=== PATIENT | male | born 1930 | race Caucasian/White ===

== ENCOUNTER 2018-04-17 07:49 | Inpatient (IN) | payer OTHER ==
--- OUTSIDE RECORDS SUMMARY | 2018-04-17 07:52 | XMS REPORT | Clinical Summary ---
:1930 Author Organization [facility] Address [address] [place] [address] Care Team Providers Name Role Phone Ana Rosa Cooney MD Primary Care Provider Allergies No Known Allergies Current Medications Prescription Sig. Disp. Refills Start Date End Date Status busPIRone (BUSPAR) 10 MG TAKE ONE (1) 04/25/2016 Active tablet TABLET(S) BY MOUTH TWICE A DAY. calcipotriene (DOVONOX) APPLY AND GENTLY 06/15/2016 Active 0.005 % ointment MASSAGE INTO AFFECTED AREA(S) TWICE A DAY. clobetasol (TEMOVATE) 0.05 APPLY SPARINGLY 0 06/11/2016 Active % cream TO AFFECTED AREA(S) TWICE A DAY. hydrochlorothiazide TAKE ONE (1) 04/25/2016 Active (MICROZIDE) 12.5 mg capsule CAPSULE(S) BY MOUTH ONCE A DAY. fluocinonide (LIDEX) 0.05 % APPLY SPARINGLY 2 06/15/2016 Active ointment TO AFFECTED AREA(S) TWICE A DAY. levocetirizine (XYZAL) 5 MG TAKE ONE (1) 05/10/2016 Active tablet TABLET(S) BY MOUTH ONCE A DAY. pantoprazole (PROTONIX) 40 TAKE ONE (1) 06/08/2016 Active MG EC tablet TABLET(S) BY MOUTH ONCE A DAY IN THE MORNING. metoclopramide HCl 5 mg Take 5 mg by 06/08/2016 Active tablet,disintegrating mouth 4 (four) times a day. BYSTOLIC 5 mg tablet TAKE ONE (1) 06/19/2016 Active TABLET(S) BY MOUTH ONCE A DAY. ondansetron ODT TAKE ONE (1) 05/25/2016 Active (ZOFRAN-ODT) 4 MG TABLET(S) BY disintegrating tablet MOUTH THREE TIMES A DAY BEFORE MEALS NEEDED FOR VOMITING. mupirocin (BACTROBAN) 2 % APPLY SPARINGLY 2 06/11/2016 Active ointment TO AFFECTED AREA(S) THREE TIMES A DAY. VESICARE 10 mg tablet TAKE ONE (1) 4 05/10/2016 Active TABLET(S) BY MOUTH ONCE A DAY. triamcinolone (KENALOG) 0.1 APPLY AND GENTLY 0 06/11/2016 Active % ointment MASSAGE INTO AFFECTED AREA(S) TWICE A DAY. melatonin 10 mg capsule Take 3 mg by Active mouth nightly. gabapentin (NEURONTIN) 100 Take 100 mg by Active MG capsule mouth 3 (three) times a day. phenytoin (DILANTIN) 100 Take by mouth. Active mg/4 mL suspension olmesartan (BENICAR) 20 MG Take 20 mg by Active tablet mouth daily. polyethylene glycol Take 17 g by Active (MIRALAX) 17 gram packet mouth daily. bisacodyl (DULCOLAX) 5 mg Take 5 mg by Active EC tablet mouth daily as needed for constipation. Active Problems Problem Noted Date Nausea & vomiting Bowel obstruction Family History Medical History Relation Name Comments Cirrhosis Father Relation Name Status Comments Father Mother Social History Tobacco Use Types Packs/Day Years Used Date Former Smoker Alcohol Use Drinks/Week oz/Week Comments No Sex Assigned at Date Recorded Not on file Last Filed Vital Signs Not on file Plan of Treatment Health Maintenance Due Date Last Done Comments SHINGRIX VACCINE (#1) 1979 ZOSTER VACCINE 1989 PNEUMOCOCCAL POLYSACCHARIDE VACCINE AGE 65 AND OVER 1994 PNEUMOCOCCAL-13 1994 INFLUENZA VACCINE 06/21/2018 Results Not on fileafter 04/16/2017 Insurance Payer Benefit Plan / Group Subscriber ID Type Phone Address FOR LIFE xxxxxxxxx MEDICARE MEDICARE PART A AND B xxxxxxxxxx Medicare [place], [place] AETNA MEDICARE AETNA MEDICARE HMO/PPO [facility] xxxxxxxxx HMO [phone] [place] [id number]
[2018-04-17] MEDS ORDERED: NA CHLORIDE 0.9% 1,000 ML ONE (08:20)
[2018-04-17] MEDS ORDERED: CEFTRIAXONE/SWI 1gm 1 GM/10 ML SYR ONE (08:20)
[2018-04-17 08:50] LABS: Absolute Lymphocytes (CBC) 0.8 K/uL (0.7-4.9); Absolute Monocytes 0.6 K/uL (0.1-1.3); Absolute Neutrophil 12.5 K/uL (1.8-8.0); Basophils % 0.2 % (0-1.3); Hematocrit 37.3 % (39.6-49.0); Lymphocytes % 5.7 % (15.3-44.8); MCH 31.3 pg (27.0-35.0); MCV 91.9 fL (80-100); MPV 8.9 fL (7.6-11.3); Monocytes % 4.2 % (3.3-12.3); RBC Red Blood Cell Count 4.06 M/uL (4.33-5.43)
[2018-04-17 08:51] LABS: Protime INR 1.13
[2018-04-17 09:10] LABS: Albumin 3.8 g/dL (3.2-5.5); Bilirubin Direct 0.2 mg/dL (0-0.2); Bilirubin Total 0.9 mg/dL (0.3-1.2); Protein, Total 6.3 g/dL (6.0-8.3)
--- NOTE | 2018-04-17 09:34 | RAD REPORT ---
EXAM DESCRIPTION: CT - Stone Protocol - 04/17/2018 8:46 am CLINICAL HISTORY: Abdominal pain, vomiting, fever, history of bowel obstruction and colon cancer COMPARISON: CT study October 2017 TECHNIQUE: CT imaging of the abdomen was performed without oral or IV contrast. All CT scans are performed using dose optimization technique as appropriate and may include automated exposure control or mA/KV adjustment according to patient size. FINDINGS: Chronic interstitial lung disease present. Early bronchiectasis changes are present. A few granulomatous calcifications are present. No pneumothorax or pleural effusion. Acute lung base proce ss is unlikely. The consolidation seen October 2017 has resolved. No pericardial thickening or effus ion. The liver, spleen, and pancreas show no suspicious findings for a non IV contrast study. Cholecystec acnelmo clips are present. No biliary tree dilatation. No hydronephrosis or suspicious mass in either kidney. Isodense masses and pyelonephritis are not exc luded. No urinary bladder calculus. Bladder has numerous diverticula. Prostate gland is again noted t o be very large and lobulated. Superior margin projects well into the bladder base. This is similar t o the prior examination. Prostate calcifications are present. There are numerous pelvic floor phlebol iths present. No gastric dilatation or gastric wall thickening. No dilated proximal small bowel. Numerous prominent distal small bowel loops seen no bowel obstruction is not suspected. Patient is status post partial colon resection on the right. No mass or focal abnormality at the anastomotic site. Proximal colon is prominent. Large umbilical hernia is present. The neck of the hernia is the widest point. The hernia contains the proximal portion of the remnant colon as well as a portion of a very tortuous and redun dant sigmoid colon. There is moderate stool volume on the left side. Colon wall thickening or mass no t identifiable. No specific finding for colitis or diverticulitis. Nonspecific gastroenteritis is sti ll possible. No free air, free fluid or inflammatory stranding. No mass or bulky lymphadenopathy. No omental thic kening. Very advanced bony degenerative changes are present but no acute or destructive finding. The patient has very dense vascular calcifications particularly of the splenic artery. Overall exam sensitivity is decreased when no contrast is administered. IMPRESSION: No bowel obstruction, free air or surgically emergent finding. Patient has prominent bowel loops than nonspecific gastroenteritis is certainly possible. Large umbilical hernia containing midline transverse colon and a portion of the very tortuous and red undant sigmoid colon. No acute component. No hydronephrosis or acute finding. Isodense masses and pyelonephritis are not excluded. Prostate gland is quite enlarged and lobulated. This projects into the bladder base. Prostate finding s are not clearly different from comparison.
[2018-04-17] MEDS ORDERED: Levofloxacin500mg IV 500 MG/100 ML BAG IV ONE (09:39)
--- NOTE | 2018-04-17 09:54 | RAD REPORT ---
EXAM DESCRIPTION: RAD - Chest Single View - 04/17/2018 8:54 am CLINICAL HISTORY: Vomiting, fever, colon cancer COMPARISON: October 2017 TECHNIQUE: AP portable chest image was obtained 0842 hours . FINDINGS: Lungs are underinflated. Consolidation is present in the lateral right lung field. Chronic lung disease or atelectasis at each base. No acute left lung field finding. No failure or volume ove rload. Heart and vasculature are normal. No pneumothorax or large pleural effusion. No gross bony abn ormality seen. No acute aortic findings suspected. IMPRESSION: Moderate right upper lobe pneumonia.
--- NOTE | 2018-04-17 10:02 | ER ---
Nurse's Notes [facility] Name: Marcial Groves Age: 87 yrs Sex: Male : 1930 Arrival Date: 04/17/2018 Time: 07:52 Bed 20 Private MD: Diagnosis: Sepsis due to other Gram-negative organisms;Other intestinal obstruction;Lobar pneumonia, unspecified organism Presentation: 04/17 07:57 Presenting complaint: Child states: " He has been throwing up and running a fever since ph last night." Reports N/V and fever TMAX "over 100 and he usually runs 97.0" Pt denies diarrhea or abdominal pain, hx of bowel blockage. Transition of care: patient was not received from another setting of care. Onset of symptoms was April 17, 2018. Risk Assessment: Do you want to hurt yourself or someone else? Patient reports no desire to harm self or others. Initial Sepsis Screen: Does the patient meet any 2 criteria? No. Patient's initial sepsis screen is negative. Does the patient have a suspected source of infection? No. Patient's initial sepsis screen is negative. Care prior to arrival: None. 07:57 Method Of Arrival: Wheelchair 07:57 Acuity: JER 3 ph Historical: - Allergies: 08:01 NKDA; ph - Home Meds: 08:58 Align 4 mg Oral cap daily [Active]; Charito Oral daily [Active]; Anuja 0.5-0.4 mg Oral hb CM24 1 cap once daily for Symptomatic Benign Prostatic Hyperplasia [Active]; melatonin 5 mg oral cap nightly [Active]; quetiapine 25 mg Oral tab 1 tab 3 times per day [Active]; buspirone 10 mg Oral tab 1 tab 3 times per day [Active]; Lamictal 100 mg Oral tab 1 tab 2 times per day [Active]; Dilantin 100 mg cap Oral 1 cap four times a day [Active]; amlodipine 5 mg oral tab [Active]; Benicar 20 mg Oral tab 1 tab nightly for Hypertension [Active]; Bystolic 5 mg Oral tab 1 tab once daily for Hypertension [Active]; hydralazine 75 mg Oral tab 4 times per day [Active]; hydrochlorothiazide 12.5 mg Oral cap 1 cap once daily [Active]; Maria Teresa Aspirin 325 mg Oral tab 1 tab once daily [Active]; levocetirizine 5 mg Oral tab 1 tab once daily [Active]; carbidopa-levodopa 25-100 mg Oral tab 3 times per day for Parkinsonism [Active]; Flomax 0.4 mg Oral cp24 1 cap once daily for Symptomatic Benign Prostatic Hyperplasia [Active]; Vesicare 10 mg Oral tab 1 tab once daily [Active]; Flonase Nasal daily [Active]; metoclopramide HCl 5 mg Oral tab 1 tab twice a day [Active]; pantoprazole 40 mg Oral TbEC 1 tab once daily [Active]; 09:02 B-12 DOTS 500 mcg Oral tab 2 tab daily [Active]; Miralax 17 gram/dose Oral powd once hb daily [Active]; vitamin B complex oral tab [Active]; Probiotic oral oral [Active]; memantine 28 mg oral tab once daily [Active]; trazodone 50 mg Oral tab nightly [Active]; ondansetron HCl 4 mg Oral tab as needed [Active]; - PMHx: 08:01 10 BOWEL OBSTRUCTIONS ; "THEY DIDN'T HAVE TO OPERATE ON ANY OF THEM"; CVA; colon ph cancer; Dementia; Hypertension; Atrial Fib; bowel incontinence; Kidney stones; Pancreatitis; Parkinsons; prostatic hyperplasia; psoriasis; pulmonary fibrosis; UTI; VASCULAR DEMENTIA; - PSHx: 08:01 Partial colon removal; Cholecystectomy; Hernia repair; Rotator cuff repair; ph - Immunization history:: Adult Immunizations unknown. - Social history:: Smoking status: Patient/guardian denies using tobacco. - Ebola Screening: : No symptoms or risks identified at this time. Screenin:40 Abuse screen: Denies threats or abuse. Denies injuries from another. hb 08:40 Nutritional screening: No deficits noted. Tuberculosis screening: No symptoms or risk hb factors identified. Fall Risk Total River Fall Scale indicates High Risk Score (45 or more points). Fall prevention measures have been instituted. Side Rails Up X 2 Placed Close to Nursing Station Frequent Obs/Assessments Occuring Family Present and informed to notify staff if the need to leave the bedside As available patient and family educated on Fall Prevention Program and Strategies. Assessment: 08:15 General: Appears in no apparent distress. Behavior is calm, cooperative. Pain: Denies hb pain. Neuro: Level of Consciousness is awake, alert, obeys commands, Oriented to person, place, situation. Cardiovascular: Heart tones S1 S2 present Capillary refill < 3 seconds Patient's skin is warm and dry. Respiratory: Airway is patent Trachea midline Respiratory effort is even, unlabored, Respiratory pattern is regular, symmetrical, Breath sounds are clear bilaterally. GI: Abdomen is non-distended, Bowel sounds present X 4 quads. Reports nausea, vomiting. : No signs and/or symptoms were reported regarding the genitourinary system. EENT: No signs and/or symptoms were reported regarding the EENT system. Derm: No signs and/or symptoms reported regarding the dermatologic system. Skin is intact, is thin, with poor turgor Skin is pink, warm \\T\\ dry. Musculoskeletal: No signs and/or symptoms reported regarding the musculoskeletal system. 09:00 Reassessment: Patient appears in no apparent distress at this time. No changes from hb previously documented assessment. Patient and/or family updated on plan of care and expected duration. Pain level reassessed. Patient is alert, oriented x 3, equal unlabored respirations, skin warm/dry/pink. 10:00 Reassessment: Patient appears in no apparent distress at this time. No changes from hb previously documented assessment. Patient and/or family updated on plan of care and expected duration. Pain level reassessed. Patient is alert, oriented x 3, equal unlabored respirations, skin warm/dry/pink. 10:56 Reassessment: Patient appears in no apparent distress at this time. No changes from hb previously documented assessment. Patient and/or family updated on plan of care and expected duration. Pain level reassessed. Patient is alert, oriented x 3, equal unlabored respirations, skin warm/dry/pink. 11:45 Reassessment: Patient appears in no apparent distress at this time. No changes from hb previously documented assessment. Patient and/or family updated on plan of care and expected duration. Pain level reassessed. Patient is alert, oriented x 3, equal unlabored respirations, skin warm/dry/pink. 12:45 Reassessment: Patient appears in no apparent distress at this time. No changes from hb previously documented assessment. Patient and/or family updated on plan of care and expected duration. Pain level reassessed. Patient is alert, oriented x 3, equal unlabored respirations, skin warm/dry/pink. Vital Signs: 07:59 BP 116 / 50; Pulse 75; Resp 18; Temp 99.4; Pulse Ox 97% on R/A; Weight 63.05 kg; ph 08:30 BP 138 / 52; Pulse 77; Resp 22; Pulse Ox 95% on R/A; Pain 0/10; hb 09:30 BP 142 / 46; Pulse 74; Resp 20; Pulse Ox 96% on R/A; Pain 0/10; hb 10:15 BP 146 / 60; Pulse 72; Resp 22; Pulse Ox 97% on R/A; hb 10:57 BP 145 / 50; Pulse 81; Resp 23; Temp 99; Pulse Ox 96% on R/A; hb 11:45 BP 148 / 48; Pulse 84; Resp 26; Pulse Ox 86% on R/A; hb 11:55 Pulse Ox 94% on 3 lpm NC; hb 12:45 BP 154 / 51; Pulse 88; Resp 24; Pulse Ox 94% on 3 lpm NC; hb ED Course: 07:52 Patient arrived in ED. ds1 07:59 Triage completed. ph 08:01 Arm band placed on. ph 08:02 Genesis Medel, JEFF is Primary Nurse. hb 08:05 Geovanny Srivastava MD is Attending Physician. gs 08:15 Patient has correct armband on for positive identification. Placed in gown. Bed in low hb position. Call light in reach. Side rails up X2. Adult w/ patient. industrial gas servicer on. Pulse ox on. NIBP on. 08:[address] via stretcher. eh 08:26 Missed attempt(s): 24 gauge in left wrist. x2. Bleeding controlled, band aid applied, hb catheter tip intact. 08:30 EKG done, by ED staff, reviewed by Geovanny Srivastava MD. mh5 08:30 Inserted saline lock: 24 gauge in left wrist, using aseptic technique. Blood collected. hb 08:44 CT completed. Patient tolerated procedure well. Patient moved to radiology. vm2 08:46 CT Stone Protocol In Process Unspecified. EDMS 08:51 X-ray completed. Patient tolerated procedure well. jw2 08:52 Chest Single View XRAY In Process Unspecified. EDMS 10:00 Nisha Delaney MD is Hospitalizing Provider. gs 14:45 No provider procedures requiring assistance completed. Patient admitted, IV remains in hb place. Administered Medications: 08:48 Drug: NS 0.9% 1000 ml Route: IV; Rate: 1 bolus; Site: left wrist; hb 10:00 Follow up: Response: No adverse reaction; IV Status: Completed infusion hb 08:48 Drug: Rocephin 1 grams Route: IV; Rate: calculated rate; Site: left wrist; hb 09:30 Follow up: Response: No adverse reaction; IV Status: Completed infusion hb 09:50 Drug: LevaQUIN 500 mg Volume: 100 ml; Route: IVPB; Infused Over: 60 mins; Site: right hb antecubital; 10:56 Follow up: Response: No adverse reaction; IV Status: Completed infusion hb 10:53 Drug: Clindamycin 600 mg Route: IVPB; Infused Over: 30 mins; Site: left wrist; hb 11:20 Follow up: Response: No adverse reaction; IV Status: Completed infusion hb 10:55 Drug: NS 0.9% 1000 ml Route: IV; Rate: 1 bolus; Site: left wrist; hb Outcome: 10:01 Decision to Hospitalize by Provider. gs 14:45 Admitted to Med/surg accompanied by tech, room 205, with chart. hb 14:45 Condition: stable 14:45 Instructed on the need for admit, Demonstrated understanding of instructions. 14:54 Patient left the ED. jb1 Signatures: Dispatcher [employer] EDMS Yassine Moran jb1 Peter Ash Demi ds1 Helen Perez, JEFF RN Laura Lewis jw2 Genesis Medel RN RN hb Martinez, Maria Nidia Perkins 2 Geovanny Srivastava MD MD gs
--- NOTE | 2018-04-17 10:02 | EDPHYS ---
Physician Documentation [facility] Name: Marcial Groves Age: 87 yrs Sex: Male : 1930 Arrival Date: 04/17/2018 Time: 07:52 Bed 20 Private MD: ED Physician Geovanny Srivastava HPI: 04/17 10:20 This 87 yrs old Male presents to ER via Wheelchair with complaints of gs Vomiting. 10:20 Onset: The symptoms/episode began/occurred acutely. Possible causes: flare up of bowel gs problem. The symptoms are aggravated by nothing. The symptoms are alleviated by nothing. Associated signs and symptoms: Pertinent positives: abdominal pain, fever. Severity of symptoms: At their worst the symptoms were severe in the emergency department the symptoms are unchanged. The patient has experienced similar episodes in the past, a few times. Historical: - Allergies: 08:01 NKDA; ph - Home Meds: 08:58 Align 4 mg Oral cap daily [Active]; Charito Oral daily [Active]; Anuja 0.5-0.4 mg Oral hb CM24 1 cap once daily for Symptomatic Benign Prostatic Hyperplasia [Active]; melatonin 5 mg oral cap nightly [Active]; quetiapine 25 mg Oral tab 1 tab 3 times per day [Active]; buspirone 10 mg Oral tab 1 tab 3 times per day [Active]; Lamictal 100 mg Oral tab 1 tab 2 times per day [Active]; Dilantin 100 mg cap Oral 1 cap four times a day [Active]; amlodipine 5 mg oral tab [Active]; Benicar 20 mg Oral tab 1 tab nightly for Hypertension [Active]; Bystolic 5 mg Oral tab 1 tab once daily for Hypertension [Active]; hydralazine 75 mg Oral tab 4 times per day [Active]; hydrochlorothiazide 12.5 mg Oral cap 1 cap once daily [Active]; Maria Teresa Aspirin 325 mg Oral tab 1 tab once daily [Active]; levocetirizine 5 mg Oral tab 1 tab once daily [Active]; carbidopa-levodopa 25-100 mg Oral tab 3 times per day for Parkinsonism [Active]; Flomax 0.4 mg Oral cp24 1 cap once daily for Symptomatic Benign Prostatic Hyperplasia [Active]; Vesicare 10 mg Oral tab 1 tab once daily [Active]; Flonase Nasal daily [Active]; metoclopramide HCl 5 mg Oral tab 1 tab twice a day [Active]; pantoprazole 40 mg Oral TbEC 1 tab once daily [Active]; 09:02 B-12 DOTS 500 mcg Oral tab 2 tab daily [Active]; Miralax 17 gram/dose Oral powd once hb daily [Active]; vitamin B complex oral tab [Active]; Probiotic oral oral [Active]; memantine 28 mg oral tab once daily [Active]; trazodone 50 mg Oral tab nightly [Active]; ondansetron HCl 4 mg Oral tab as needed [Active]; - PMHx: 08:01 10 BOWEL OBSTRUCTIONS ; "THEY DIDN'T HAVE TO OPERATE ON ANY OF THEM"; CVA; colon ph cancer; Dementia; Hypertension; Atrial Fib; bowel incontinence; Kidney stones; Pancreatitis; Parkinsons; prostatic hyperplasia; psoriasis; pulmonary fibrosis; UTI; VASCULAR DEMENTIA; - PSHx: 08:01 Partial colon removal; Cholecystectomy; Hernia repair; Rotator cuff repair; ph - Immunization history:: Adult Immunizations unknown. - Social history:: Smoking status: Patient/guardian denies using tobacco. - Ebola Screening: : No symptoms or risks identified at this time. ROS: 10:20 All other systems are negative. gs Exam: 10:20 Head/Face: Normocephalic, atraumatic. Eyes: Pupils equal round and reactive to light, gs extra-ocular motions intact. Lids and lashes normal. Conjunctiva and sclera are non-icteric and not injected. Cornea within normal limits. Periorbital areas with no swelling, redness, or edema. ENT: Nares patent. No nasal discharge, no septal abnormalities noted. Tympanic membranes are normal and external auditory canals are clear. Oropharynx with no redness, swelling, or masses, exudates, or evidence of obstruction, uvula midline. Mucous membranes moist. Neck: Trachea midline, no thyromegaly or masses palpated, and no cervical lymphadenopathy. Supple, full range of motion without nuchal rigidity, or vertebral point tenderness. No Meningismus. Chest/axilla: Normal chest wall appearance and motion. Nontender with no deformity. No lesions are appreciated. Cardiovascular: Regular rate and rhythm with a normal S1 and S2. No gallops, murmurs, or rubs. Normal PMI, no JVD. No pulse deficits. 10:20 Constitutional: The patient appears alert, awake. 10:20 ECG was reviewed by the Attending Physician. Vital Signs: 07:59 BP 116 / 50; Pulse 75; Resp 18; Temp 99.4; Pulse Ox 97% on R/A; Weight 63.05 kg; ph 08:30 BP 138 / 52; Pulse 77; Resp 22; Pulse Ox 95% on R/A; Pain 0/10; hb 09:30 BP 142 / 46; Pulse 74; Resp 20; Pulse Ox 96% on R/A; Pain 0/10; hb 10:15 BP 146 / 60; Pulse 72; Resp 22; Pulse Ox 97% on R/A; hb 10:57 BP 145 / 50; Pulse 81; Resp 23; Temp 99; Pulse Ox 96% on R/A; hb 11:45 BP 148 / 48; Pulse 84; Resp 26; Pulse Ox 86% on R/A; hb 11:55 Pulse Ox 94% on 3 lpm NC; hb 12:45 BP 154 / 51; Pulse 88; Resp 24; Pulse Ox 94% on 3 lpm NC; hb MDM: 08:13 Patient medically screened. 10:20 Differential diagnosis: Nonspecific abd pain, pancreatitis, diverticulitis, viral gs gastroenteritis, sepsis. Data reviewed: vital signs, nurses notes. Response to treatment: the patient's symptoms have mildly improved after treatment, and as a result, I will admit patient. 04/17 08:13 Order name: Basic Metabolic Panel; Complete Time: 09:30 04/17 08:13 Order name: Blood Culture Adult (2) 04/17 08:13 Order name: BNP; Complete Time: 09:30 04/17 08:13 Order name: CBC with Diff 04/17 08:13 Order name: CPK; Complete Time: 09:30 04/17 08:13 Order name: Lactate; Complete Time: 09:30 04/17 08:13 Order name: LFT's; Complete Time: 09:30 04/17 08:13 Order name: Lipase; Complete Time: 09:30 04/17 08:13 Order name: Procalcitonin 04/17 08:13 Order name: Protime (+inr); Complete Time: 09:30 04/17 08:13 Order name: Sed Rate 04/17 08:13 Order name: Troponin (emerg Dept Use Only); Complete Time: 09:30 04/17 08:53 Order name: CBC Smear Scan [facility] 04/17 10:03 Order name: Urine Dipstick--Ancillary (enter results) 04/17 08:13 Order name: Chest Single View XRAY; Complete Time: 10:01 04/17 08:13 Order name: CT Stone Protocol; Complete Time: 10:01 04/17 10:13 Order name: Basic Metabolic Panel [facility] 04/17 10:13 Order name: Basic Metabolic Panel [facility] 04/17 10:13 Order name: Basic Metabolic Panel [facility] 04/17 10:13 Order name: Basic Metabolic Panel [facility] 04/17 10:13 Order name: CBC with Automated Diff [facility] 04/17 10:13 Order name: CBC with Automated Diff [facility] 04/17 10:13 Order name: CBC with Automated Diff [facility] 04/17 10:13 Order name: CBC with Automated Diff [facility] 04/17 10:13 Order name: Sputum Culture [facility] 04/17 13:24 Order name: Lactate Sepsis 2 HR Follow-up [facility] 04/17 13:29 Order name: Magnesium [facility] 04/17 08:13 Order name: Accucheck; Complete Time: 08:48 04/17 08:13 Order name: Cardiac monitoring; Complete Time: 08:49 04/17 08:13 Order name: EKG - Nurse/Tech; Complete Time: 08:31 04/17 08:13 Order name: IV Saline Lock - Large Bore; Complete Time: 08:49 04/17 08:13 Order name: Labs collected and sent; Complete Time: 08:49 04/17 08:13 Order name: O2 Per Protocol; Complete Time: 08:49 04/17 08:13 Order name: O2 Sat Monitoring; Complete Time: 08:49 04/17 08:13 Order name: Urine Dipstick-Ancillary (obtain specimen); Complete Time: 09:51 04/17 08:55 Order name: EKG Electrocardiogram [facility] 04/17 10:13 Order name: CONS Physician Consult [facility] 04/17 10:13 Order name: Physical Therapy Consult [facility] 04/17 10:13 Order name: NPO EDOK EC:20 Rate is 76 beats/min. Rhythm is regular. QRS interval is prolonged. T waves are Normal. gs No ST changes noted. Clinical impression: Abnormal EKG without significant change. Interpreted by me. Administered Medications: 08:48 Drug: NS 0.9% 1000 ml Route: IV; Rate: 1 bolus; Site: left wrist; hb 10:00 Follow up: Response: No adverse reaction; IV Status: Completed infusion hb 08:48 Drug: Rocephin 1 grams Route: IV; Rate: calculated rate; Site: left wrist; hb 09:30 Follow up: Response: No adverse reaction; IV Status: Completed infusion hb 09:50 Drug: LevaQUIN 500 mg Volume: 100 ml; Route: IVPB; Infused Over: 60 mins; Site: right hb antecubital; 10:56 Follow up: Response: No adverse reaction; IV Status: Completed infusion hb 10:53 Drug: Clindamycin 600 mg Route: IVPB; Infused Over: 30 mins; Site: left wrist; hb 11:20 Follow up: Response: No adverse reaction; IV Status: Completed infusion hb 10:55 Drug: NS 0.9% 1000 ml Route: IV; Rate: 1 bolus; Site: left wrist; hb Disposition: 04/17/18 10:01 Hospitalization ordered by Nisha Delaney for Inpatient Admission. Preliminary diagnosis are Sepsis due to other Gram-negative organisms, Other intestinal obstruction, Lobar pneumonia, unspecified organism. - Bed requested for Telemetry/MedSurg (Inpatient). - Status is Inpatient Admission. jb1 - Condition is Stable. - Problem is new. - Symptoms have improved. UTI on Admission? No Critical care time excluding procedures: 10:20 Critical care time: Bedside Care: 10 minutes, Consultation: 10 minutes, Family gs Intervention: 10 minutes. Total time: 30 minutes Signatures: Dispatcher [employer] EDOK MoranYassine jb1 Keri Robledo Patricia, RN RN Genesis Medel RN RN Geovanny Srivastava MD MD Corrections: (The following items were deleted from the chart) 13:33 10:01 Hospitalization Ordered by Nisha Delaney MD for Inpatient Admission. Preliminary bd diagnosis is Sepsis due to other Gram-negative organisms; Other intestinal obstruction; Lobar pneumonia, unspecified organism. Bed requested for Telemetry/MedSurg (Inpatient). Status is Inpatient Admission. Condition is Stable. Problem is new. Symptoms have improved. UTI on Admission? No. gs 14:54 13:33 04/17/2018 10:01 Hospitalization Ordered by Nisha Delaney MD for Inpatient jb1 Admission. Preliminary diagnosis is Sepsis due to other Gram-negative organisms; Other intestinal obstruction; Lobar pneumonia, unspecified organism. Bed requested for Telemetry/MedSurg (Inpatient). Status is Inpatient Admission. Condition is Stable. Problem is new. Symptoms have improved. UTI on Admission? No. bd
[2018-04-17] MEDS ORDERED: IPRATROPIUM BROM 0.5MG/2.5ML NEB PRN (10:09)
[2018-04-17] MEDS ORDERED: ALBUTEROL 2.5 MG/3 ML NEB SOL NEB PRN (10:09)
[2018-04-17] MEDS ORDERED: ONDANSETRON 4 MG/2 ML VIAL IV PRN (10:09)
[2018-04-17] MEDS ORDERED: ACETAMINOPHEN 650MG/RECT SUPP PR PRN (10:09)
[2018-04-17] MEDS ORDERED: CLINDAMYCIN 600MG/D5W 600 MG/50 ML BAG IV ONE (10:50)
[2018-04-17 11:18] LABS: Urine Blood NEGATIVE (NEG); Urine Glucose NEGATIVE (NEG); Urine Protein NEGATIVE (NEG); Urine Specific Gravity 1.015 (1.005-1.030)
[2018-04-17 12:01] LABS: Blood Morphology Comment NOT SEEN (NOT SEEN); Platelet Estimate ADEQ; Urine White Blood Cell Casts OK
--- NOTE | 2018-04-17 12:43 | EKG ---
Test Date: 2018-04-17 Test Time: 08:25:40 Gullet Slitter: LISA MEASUREMENT RESULTS: Intervals: Rate: 76 [place]: 192 QRSD: 114 QT: 408 QTc: 459 [place]: P: [place]: 192 QRS: 11 T: 45 INTERPRETIVE STATEMENTS: Sinus rhythm with premature atrial complexes Otherwise normal ECG Compared to ECG 11/19/2017 05:30:47 Atrial premature complex(es) now present Atrial fibrillation no longer present Ventricular premature complex(es) no longer present Intraventricular conduction delay no longer present ST (T wave) deviation no longer present Electronically Signed On 04-17-18 12:42:31 CDT by Vicente Guzman
--- NOTE | 2018-04-17 14:11 | CON ---
Date of Consultation: 04/17/2018 Brief History Of Present Illness: The patient is an 87-year-old male known to me from previous admis sions, who presents with complaints of throwing up and fever since yesterday. He had nausea, vomitin g and fever of approximately 100 and that is unusual for him. He states that he has some mild abdomi nal pain as well. Past Medical History: Significant for hypertension, bradycardia, colon cancer, neuropathy, CVA, vasc ular dementia, osteoarthritis and possible Parkinson's disease. He has had multiple bowel obstructio ns in the past on 05/16/2016, 09/23/2016 and 11/21/2016. He did not require any surgical interventio n at that time. He was recommended on a low residue diet, which has been effective for minimizing th e incidence of his bowel obstructions. He does not appear to have obstructive symptoms at this time by his family's description. His last BM was yesterday, which was apparently normal. Past Surgical History: He had a partial colectomy for colon cancer, cholecystectomy, tonsillectomy, hernia repair, small bowel resection and rotator cuff surgery. Social History: He lives with his son and caregiver. Negative for smoking, alcohol or recreational drug use. Allergies: NO KNOWN DRUG ALLERGIES. Medications: At home include: 1.Align. 2.Charito. 3.Melatonin. 4.Seroquel. 5.BuSpar. 6.Lamictal. 7.Dilantin. 8.Amlodipine. 9.Benicar. 10.Bystolic. 11.Hydralazine. 12.Hydrochlorothiazide. 13.Maria Teresa aspirin. 14.Levocetirizine. 15.Carbidopa. 16.Levodopa. 17.Flomax. 18.VESIcare. 19.Flonase. 20.Reglan. 21.Protonix. 22.B12. 23.MiraLax. 24.Vitamin B. 25.Probiotic. 26.Memantine. 27.Trazodone. 28.Zofran. Review of Systems: A 10-point review of systems other than HPI, denies although the patient is a poor historian. Physical Examination: General: He is awake and alert, but confused. He is pleasantly demented. He is answering questions appropriately and has no apparent distress. He was smiling and conversant throughout the interview. HEENT: Normocephalic. His sclerae are anicteric. His mucous membranes are moist. His oropharynx i s clear. Neck: Supple. No JVD. Chest: Normal expansion and excursion. Abdomen: Soft with obvious midline hernia. Easily reducible. It is nontender. There is minimal te nderness to deep palpation in bilateral lateral lower quadrants. No rebound. No guarding. No focal peritonitis. Bowel sounds are good. Extremities: No clubbing, cyanosis or edema. Skin: Warm and dry. Laboratory Data: He had a hemoglobin of 12.7, hematocrit 37.3, white count was 13.9 and platelets ar e 144. Neutrophils are 89.9, PT 13.3 and INR 1.13. Sodium 129, potassium 4.0, chloride 94, carbon d ioxide 26, BUN 17, creatinine 1.0, glucose is 156, lactic acid 31.1, total bilirubin 0.9, AST is 41, ALT 27 and alkaline phosphatase is 100. BNP is 252. Lipase is 16. He had a CT scan performed of abdomen and pelvis. The official dictation states no bowel obstruction, free air or surgically felix rgent finding. The patient had prominent bowel loops. There is nonspecific gastroenteritis with cer tainly possible large umbilical hernia containing midline transverse colon and a portion of the very tortuous and redundant sigmoid colon. No acute component. No hydronephrosis or findings. Isoden se mass and pyelonephritis are not excluded. Prostate gland is quite enlarged and lobulated. There is projection to bladder base. Prostate findings are not clearly different from comparison. Assessment And Plan: This is an 87-year-old man, who presents with possible enteritis-type picture/i leus. I suspect that this is likely due to his electrolyte abnormalities. He has had a pattern of e lectrolyte abnormalities contributing to an ileus-type picture. When corrected, his bowel function r esumed and his symptoms completely resolved. As such, I recommend admission, IV fluids, electrolyte correction, serial abdominal exams, medical management for his medical issues and possible aspiration . No surgical intervention is warranted at this time, however, we will follow along with you. JUAN PABLO/MARILYN Voice ID: [id number] Report ID: [id number]
[2018-04-17 14:46] VITALS: BMI 21.4
--- NOTE | 2018-04-17 14:55 | HP ---
Date of Admission: 04/17/2018 Primary Care Physician: Dr. Ana Rosa Cooney. Consultants: Dr. Paulino, General Surgery. Chief Complaint: Cough, fever, nausea. Code Status: DNR. The patient does have medical power of finance attorney and living will. History Of Present Illness: The patient is an 87-year-old male with past medical history of Parkinso n disease, history of CVA, history of colon cancer, neuropathy, osteoarthritis, atrial fibrillation, history of bowel resection with multiple obstructions, who lives in an assisted living facility, who comes in with a fever, nausea, no vomiting along with some shortness of breath. The patient has had some cough with some scant sputum production. No ill contacts. Symptoms are constant, moderate, pro gressively worsening. The patient denies any overt choking episodes, however, is on thickened liquid s and has had episodes of choking in the past. The patient's workup revealed an elevated white count of 13,000 with left shift. Electrolytes showed low sodium of 129, elevated lactic acid. The patien t was found to be septic, given IV antibiotics. Blood cultures were obtained. Chest x-ray showed ri ght upper lobe pneumonia. CT abdomen showed possible ileus. The patient was then referred for admis loan. When seen in the ER, the patient was awake, alert, oriented x2, in some mild distress. Past Medical History: History of CVA, hypertension, history of colon cancer with bowel obstructions, neuropathy, vascular dementia, acute instability, multiple falls, osteoarthritis, A-Fib. Past Surgical History: Bowel resection, cholecystectomy, tonsillectomy, hernia repair, rotator cuff repair. Allergies: NO KNOWN DRUG ALLERGIES. Medications: List reviewed. Social History: The patient lives in assisted living facility. Has good social support. Does requi re assistive ambulatory devices. Is a former smoker. No alcohol use or illicit drug use. Family History: Mother had Alzheimer's. Review of Systems: An 11-point review of systems negative except as per HPI. Physical Examination: Vital Signs: Temperature 99.4, heart rate 75, respirations 18, blood pressure 116/50, O2 97% on room air. General: Awake, alert, oriented x3, in some mild distress. Elderly male, ill-appearing. HEENT: Normocephalic, atraumatic. PERRLA. EOMI. Moist mucous membranes. Oropharynx is clear. Po or dentition. Conjunctiva anicteric. Neck: Supple. No JVD. Trachea midline. CV: S1, S2. Peripheral pulses present. No murmurs. Respiratory: Diminished breath sounds on the right. Moving air well on the left. No wheezing. No stridor. No use of accessory muscles. Gastrointestinal: Abdomen is soft. Mild tenderness to palpation. No rebound or guarding. No rigid ity. Mildly distended. Reducible ventral hernia is present. Extremities: No clubbing, cyanosis, or edema. Neuro: Cranial nerves 2 through 12 intact grossly. No focal neurological deficit. Speech is normal . Laboratory Data: Sodium 129, potassium 4, chloride 94, CO2 26, BUN 17, creatinine 1, glucose 156, la ctic acid 31.1, calcium 8.8. Troponin less than 0.03. BNP 252, lipase 16. Procalcitonin pending. INR 1.13. WBC 13.9, H and H 12.7, 37.3, platelets 144, neutrophils 89.9%. UA pending. Chest x-ray shows moderate right upper lobe pneumonia. CT scan of abdomen shows no bowel obstruction, free air o r surgically emergent finding. The patient has prominent bowel loops, nonspecific gastritis. Certai nly possible large umbilical hernia containing midline transverse colon, portion of a very tortuous a nd redundant sigmoid colon. No acute component. No hydronephrosis or acute finding. Isodense ma sses and pyelonephritis not excluded. Prostate gland quite enlarged lobulated, projects into the chantel dder base, not different from comparison. Assessment: An 87-year-old male with; 1.Sepsis secondary to pneumonia, right upper lobe. Continue with IV antibiotics. Follow up with bl ood cultures. Obtain sputum cultures. 2.Ileus. We will keep n.p.o. No small bowel obstruction. Appreciate Dr. Paulino's input. We will monitor electrolytes. Check magnesium level. 3.Hyponatremia. We will monitor sodium level. Continue with IV fluids, fluid restriction. 4.History of cerebrovascular accident. 5.Essential hypertension. 6.History of colon cancer with multiple bowel obstructions. 7.Neuropathy. 8.Vascular dementia. 9.Osteoarthritis. 10.History of paroxysmal atrial fibrillation. 11.Benign prostatic hyperplasia. 12.Gastrointestinal and deep venous thrombosis prophylaxis addressed. Plan: Continue with sepsis protocol, IV antibiotics and fluids. Follow up on cultures. /MARILYN Voice ID: [id number]
[2018-04-17] MEDS: NA CHLORIDE 0.9% 1,000 ML IV SCH ×2 (15:42→21:00)
[2018-04-17] MEDS: ENOXAPARIN 40 MG/0.4 ML SQ SCH (16:35)
[2018-04-17] MEDS: ENSURE ENLIVE 237 ML CAN PO SCH ×2 (17:00→21:00)
[2018-04-17] MEDS: PHENYTOIN ER 100 MG CAP PO SCH ×3 (17:00→22:11)
[2018-04-17] MEDS: METOCLOPRAMIDE 5 MG TAB PO SCH ×2 (21:00→22:11)
[2018-04-17] MEDS ORDERED: CARBIDOPA PO SCH (21:00)
[2018-04-17] MEDS: lamoTRIgine 100 MG TAB PO SCH ×2 (21:00→22:11)
[2018-04-17] MEDS ORDERED: LEVODOPA PO SCH (21:00)
[2018-04-17] MEDS ORDERED: HOME MED 1 EA UNK (Buspirone Hcl [Buspar] 10 MG) PO SCH (21:00)
[2018-04-18 05:13] LABS: Absolute Lymphocytes (CBC) 0.6 K/uL (0.7-4.9); Absolute Monocytes 0.6 K/uL (0.1-1.3); Absolute Neutrophil 8.1 K/uL (1.8-8.0); Basophils % 0.3 % (0-1.3); Eosinophils % 0.3 % (0-4.4); Lymphocytes % 6.2 % (15.3-44.8); MCH 31.8 pg (27.0-35.0); MCV 91.6 fL (80-100); MPV 8.5 fL (7.6-11.3); Monocytes % 6.4 % (3.3-12.3); RBC Red Blood Cell Count 4.15 M/uL (4.33-5.43)
[2018-04-18 05:56] LABS: Magnesium 1.8 mg/dL (1.8-2.5); Potassium 3.8 mEq/L (3.6-5.0)
[2018-04-18] MEDS ORDERED: MAGNESIUM SULFATE 1 gm IVPB 1 GM/100 ML BAG IV ONE (06:19)
[2018-04-18] MEDS: NA CHLORIDE 0.9% 1,000 ML IV SCH ×2 (06:36→18:02)
[2018-04-18] MEDS ORDERED: KCL 20 MEQ/100 mL IVPB 20 MEQ/100 ML BAG IV SCH (07:00)
[2018-04-18] MEDS ORDERED: POLYETHYL GLY 3350 17 GM/DOSE PO PRN (09:00)
[2018-04-18] MEDS ORDERED: FEXOFENADINE 180 MG TAB PO SCH (09:00)
[2018-04-18] MEDS: ENSURE ENLIVE 237 ML CAN PO SCH ×4 (09:00→20:58)
[2018-04-18] MEDS ORDERED: HOME MED 1 EA UNK (Levocetirizine Dihydrochloride [Xyzal] 5 MG) PO SCH (09:00)
[2018-04-18] MEDS: PANTOPRAZOLE 40MG TABLET PO SCH (10:39)
[2018-04-18] MEDS: Levofloxacin 750mg IV 750 MG/150 ML BAG IV SCH (10:39)
[2018-04-18] MEDS: lamoTRIgine 100 MG TAB PO SCH ×2 (10:39→20:47)
[2018-04-18] MEDS: SOLIFENACIN SUCCIN 5 MG TAB PO SCH (10:39)
[2018-04-18] MEDS: CARBIDOPA/LEVODOPA 25/100 TAB PO SCH ×3 (10:39→20:47)
[2018-04-18] MEDS: MEMANTINE HCL 10 MG TABLET PO SCH ×2 (10:40→20:47)
[2018-04-18] MEDS: BUSPIRONE HCL 5 MG TABLET PO SCH ×3 (10:40→20:47)
[2018-04-18] MEDS: LACTOBACILLUS/ACIDOPHILUS TAB PO SCH (10:40)
[2018-04-18] MEDS: FLUTICASONE 50MCG NASAL SPRAY NAS SCH (10:40)
[2018-04-18] MEDS: PHENYTOIN ER 100 MG CAP PO SCH ×4 (10:40→20:46)
[2018-04-18] MEDS: METOCLOPRAMIDE 5 MG TAB PO SCH ×2 (10:40→20:47)
[2018-04-18] MEDS: ASPIRIN 325 MG TAB PO SCH (10:40)
[2018-04-18] MEDS: TAMSULOSIN 0.4 MG SR CAP PO SCH (10:40)
[2018-04-18] MEDS: hydroCHLOROthiazide 12.5 MG CAP PO SCH (12:47)
[2018-04-18] MEDS: AMLODIPINE 5 MG TAB PO SCH (12:48)
[2018-04-18] MEDS: NEBIVOLOL HCL 5 MG TAB PO SCH (12:49)
[2018-04-18] MEDS: HYDRALAZINE HCL 25 MG TABLET PO SCH ×3 (12:50→20:47)
--- NOTE | 2018-04-18 17:33 | PN ---
Date of Progress Note: 04/18/2018 History: The patient seen and examined. Chart reviewed and case discussed with RN. The patient is doing better. No other complaints as discussed with Dr. Paulino. The patient is no longer having an y nausea or vomiting. Review of Systems: Negative except as above. Medications: Reviewed. Physical Examination: Vital Signs: Temperature 97.8, heart rate 73, blood pressure 155/73, respirations 16, O2 90% on 2.5 L. General: Awake, alert, oriented x2, elderly male, somewhat ill-appearing, frail. BMI 21. CV: S1, S2. Regular rate and rhythm. Peripheral pulses present. Respiratory: Diminished breath sounds, right worse than left. No wheezing or crackles. Gastrointestinal: Abdomen is soft, nontender, nondistended. Positive bowel sounds. Extremities: No clubbing, cyanosis, or edema. Neuro: No focal weakness. However, some generalized weakness is present. Laboratory Data: Sodium 131, potassium 3.8, chloride 98, CO2 26, BUN 14, creatinine 0.82, glucose 12 8, lactic acid 31.1, calcium 8.7, magnesium 1.8. WBC 9.3, H and H 13.2, 38, platelets 117, neutrophi ls 86%. Blood cultures no growth to date. Sputum cultures pending. Assessment: An 87-year-old male with: 1.Sepsis secondary to right upper lobe pneumonia, improving. Blood pressure is significantly improv ed. Blood cultures negative to date. Continue IV fluids, antibiotics. 2.Right upper lobe pneumonia. We will continue IV antibiotics. Follow up on sputum culture results . Repeat chest x-ray in a.m. 3.Ileus. No further nausea or vomiting. We will advance to clear liquids. Dr. Paulino on the case . 4.Hypomagnesemia, replace and monitor. 5.Hyponatremia, improving. We will continue IV fluids, fluid restriction. 6.History of cerebrovascular accident. 7.Essential hypertension. Resume home medications as appropriate. 8.History of colon cancer with multiple small bowel obstructions. 9.Neuropathy. 10.Vascular dementia. 11.Osteoarthritis, generalized. 12.History of paroxysmal atrial fibrillation, currently in sinus rhythm. Continue beta-monica. 13.Benign prostatic hypertrophy. Continue tamsulosin. 14.Gastrointestinal and deep venous thrombosis prophylaxis with Lovenox and PPI. Plan: Continue antibiotics. Follow up on culture results. Advance diet as tolerated for now. /MARILYN Voice ID: [id number] Report ID: [id number]
[2018-04-18] MEDS: ENOXAPARIN 40 MG/0.4 ML SQ SCH (18:01)
[2018-04-18] MEDS: VALSARTAN 80 MG TAB PO SCH (20:46)
[2018-04-19] MEDS: NA CHLORIDE 0.9% 1,000 ML IV SCH (03:07)
[2018-04-19] MEDS ORDERED: FUROSEMIDE 40 MG/4 ML VIAL IV ONE (03:44)
[2018-04-19] MEDS ORDERED: FUROSEMIDE 40 MG/4 ML VIAL ONE (03:47)
[2018-04-19] MEDS ORDERED: HYDRALAZINE HCL 20 MG/ML VIAL IV ONE (04:21)
[2018-04-19 05:52] LABS: BUN Blood Urea Nitrogen 11 mg/dL (6-20); Bicarbonate 27 mEq/L (21-31); Glucose Level 191 mg/dL (65-120); Potassium 3.4 mEq/L (3.6-5.0); Sodium Level 133 mEq/L (135-145)
--- NOTE | 2018-04-19 07:47 | RAD REPORT ---
EXAM DESCRIPTION: [place] Single View04/19/2018 7:29 am CLINICAL HISTORY: Chest pain COMPARISON: April 17, 2018 FINDINGS: A right upper lobe consolidation is unchanged. There has been development of mild patchy left lung opacities. The heart is borderline enlarged. A small right pleural effusion may be present IMPRESSION: No change in a right upper lobe pneumonia. Development of mild patchy left lung opacitie s consistent with additional pneumonia
[2018-04-19 08:37] LABS: Absolute Lymphocytes (CBC) 0.5 K/uL (0.7-4.9); Absolute Monocytes 0.6 K/uL (0.1-1.3); Absolute Neutrophil 7.5 K/uL (1.8-8.0); Basophils % 0.1 % (0-1.3); Eosinophils % 0.2 % (0-4.4); Hematocrit 34.3 % (39.6-49.0); Lymphocytes % 6.1 % (15.3-44.8); MCH 31.6 pg (27.0-35.0); MCV 92.2 fL (80-100); MPV 9.2 fL (7.6-11.3); Monocytes % 6.9 % (3.3-12.3); RBC Red Blood Cell Count 3.72 M/uL (4.33-5.43)
[2018-04-19] MEDS: ENSURE ENLIVE 237 ML CAN PO SCH ×4 (09:00→21:00)
[2018-04-19 09:38] LABS: Blood Morphology Comment NOT SEEN (NOT SEEN); Platelet Estimate ADEQ; Urine White Blood Cell Casts OK
[2018-04-19] MEDS: AMLODIPINE 5 MG TAB PO SCH (09:58)
[2018-04-19] MEDS: ASPIRIN 325 MG TAB PO SCH (09:59)
[2018-04-19] MEDS: BUSPIRONE HCL 5 MG TABLET PO SCH ×3 (09:59→21:30)
[2018-04-19] MEDS: LACTOBACILLUS/ACIDOPHILUS TAB PO SCH (09:59)
[2018-04-19] MEDS: HYDRALAZINE HCL 25 MG TABLET PO SCH ×4 (09:59→21:30)
[2018-04-19] MEDS: SOLIFENACIN SUCCIN 5 MG TAB PO SCH (10:00)
[2018-04-19] MEDS: CARBIDOPA/LEVODOPA 25/100 TAB PO SCH ×3 (10:00→21:26)
[2018-04-19] MEDS: PHENYTOIN ER 100 MG CAP PO SCH ×4 (10:00→21:26)
[2018-04-19] MEDS: METOCLOPRAMIDE 5 MG TAB PO SCH ×2 (10:00→21:27)
[2018-04-19] MEDS: TAMSULOSIN 0.4 MG SR CAP PO SCH (10:01)
[2018-04-19] MEDS: MEMANTINE HCL 10 MG TABLET PO SCH ×2 (10:01→21:26)
[2018-04-19] MEDS: hydroCHLOROthiazide 12.5 MG CAP PO SCH (10:01)
[2018-04-19] MEDS: PANTOPRAZOLE 40MG TABLET PO SCH (10:02)
[2018-04-19] MEDS: lamoTRIgine 100 MG TAB PO SCH ×2 (10:02→21:26)
[2018-04-19] MEDS: NEBIVOLOL HCL 5 MG TAB PO SCH (10:02)
[2018-04-19] MEDS: FLUTICASONE 50MCG NASAL SPRAY NAS SCH (10:03)
[2018-04-19] MEDS: Levofloxacin 750mg IV 750 MG/150 ML BAG IV SCH (10:05)
[2018-04-19 10:44] LABS: BUN Blood Urea Nitrogen 10 mg/dL (6-20); Bicarbonate 28 mEq/L (21-31); Glucose Level 166 mg/dL (65-120); Magnesium 1.6 mg/dL (1.8-2.5); Potassium 3.2 mEq/L (3.6-5.0); Sodium Level 133 mEq/L (135-145)
[2018-04-19] MEDS: FUROSEMIDE 40 MG/4 ML VIAL IV SCH (16:18)
[2018-04-19] MEDS: ENOXAPARIN 40 MG/0.4 ML SQ SCH (16:19)
--- NOTE | 2018-04-19 16:37 | PN ---
Date of Progress Note: 04/19/2018 Subjective: The patient seen and examined, chart reviewed, and case discussed with RN. The patient now on GI soft diet, tolerating. No fevers overnight. Blood pressure is still elevated this morning.The patient on Venturi mask since last night. Review of Systems: Negative except as above. Medications: Reviewed. Physical Examination: Vital Signs: Temperature 97.3, heart rate 86, blood pressure 197/84, respirations 24, and O2 saturation 93% on 15 L via nasal cannula. General: Awake, alert, oriented x2, elderly male, ill-appearing. CV: S1, S2. Regular rate and rhythm. Peripheral pulses present. Respiratory: Diminished breath sounds and dullness in the right. No wheezing. The patient is tachypneic. Gastrointestinal: Abdomen is soft, nontender, nondistended. Positive bowel sounds. Extremities: No clubbing, cyanosis, edema. Neurologic: Nonfocal. Laboratory Data: Sodium 133, potassium 3.2, chloride 97, CO2 28, BUN 10, creatinine 0.77, glucose 156, calcium 8.3, and magnesium 1.6. WBC 8.7, H and H 11.7, 34.3, platelets 117, AND neutrophils 86%. Blood cultures, no growth to date. Chest x-ray shows no change in right upper lobe pneumonia, development of mild patchy left lung opacities, consistent with additional pneumonia. Assessment: An 87-year-old male with; 1. Sepsis secondary to right upper lobe pneumonia. Sepsis is improving. Blood pressure is better. Blood cultures negative to date. We will continue IV antibiotics. 2. Right upper lobe pneumonia. Now chest x-ray showing left-sided opacities as well. The patient refusing speech therapy evaluation and swallow evaluation. Apparently, at home has been on thickened liquids already. We will obtain Pulmonology consultation. The patient had a hypoxic episode, now on Venturi mask. 3. Hypoxia secondary to above. 4. Ileus, improved and resolving. The patient started on GI soft diet by Dr. Paulino. Appreciate his input. 5. Hypomagnesemia, replace and monitor. 6. Hyponatremia, improving. We will continue fluid restriction. 7. Hypokalemia, replace and monitor. 8. History of cerebrovascular accident. 9. Essential hypertension, uncontrolled. We will adjust medications. 10. History of colon cancer with multiple small bowel obstructions. 11. Neuropathy. 12. Vascular dementia without behavioral disturbance. 13. Osteoarthritis generalized. 14. History of paroxysmal atrial fibrillation, currently in sinus rhythm. 15. Benign prostatic hypertrophy. Continue alpha-monica. 16. Gastrointestinal and deep venous thrombosis prophylaxis with Lovenox and PPI. Plan: We will start on diuresis. /MARILYN Voice ID: [id number] Report ID: [id number] MTDD
[2018-04-19] MEDS: VALSARTAN 80 MG TAB PO SCH (21:30)
[2018-04-20] MEDS ORDERED: MAGNESIUM SULFATE 1 gm IVPB 1 GM/100 ML BAG IV ONE (02:33)
[2018-04-20] MEDS ORDERED: POTASSIUM 25 MEQ EFFERV TAB PO ONE (02:34)
[2018-04-20 05:25] LABS: Absolute Lymphocytes (CBC) 0.8 K/uL (0.7-4.9); Absolute Monocytes 0.6 K/uL (0.1-1.3); Absolute Neutrophil 4.7 K/uL (1.8-8.0); Basophils % 0.4 % (0-1.3); Hematocrit 32.7 % (39.6-49.0); Lymphocytes % 12.7 % (15.3-44.8); MCH 31.9 pg (27.0-35.0); MCV 90.8 fL (80-100); MPV 8.1 fL (7.6-11.3); Monocytes % 9.1 % (3.3-12.3)
[2018-04-20 05:41] LABS: Magnesium 1.8 mg/dL (1.8-2.5)
[2018-04-20 05:46] LABS: Potassium 2.9 mEq/L (3.6-5.0)
[2018-04-20] MEDS: KCL 20 MEQ/100 mL IVPB 20 MEQ/100 ML BAG IV SCH ×3 (06:58→10:24)
--- NOTE | 2018-04-20 08:11 | P.CNS ---
Date of Consult: 04/20/18 Reason for Consult: Pneumonia Chief Complaint: Cough History of Present Illness: Patient is 87 years of age a residential resident became sick son angy started developing HIMSS fever vomiting dry and nonproductive cough was admitted to the hospital with a diagnosis of right upper lobe pneumonia he is currently doing well alert responsive oriented cooperative patient has multiple doctors at all in [place] Allergies No Known Drug Allergies Allergy (Verified 04/17/18 14:43) Unknown Home Medications: Amlodipine [Norvasc*] 5 mg PO DAILY 04/10/17 Aspirin Tab [Maria Teresa Aspirin*] 325 mg PO DAILY 04/10/17 Buspirone HCl [Buspar] 10 mg PO TID 04/10/17 Dutasteride/Tamsulosin HCl [Anuja 0.5-0.4 mg Capsule] 1 each PO DAILY 04/10/17 Fluticasone Propionate [Flonase Allergy Relief] 1 appl NS DAILY 04/10/17 Hydralazine [Apresoline*] 75 mg PO QID 04/10/17 Hydrochlorothiazide [Hydrochlorothiazide*] 12.5 mg PO DAILY 04/10/17 Lamotrigine [Lamictal*] 100 mg PO BID 04/10/17 Metoclopramide HCl 5 mg PO BID 04/10/17 Nebivolol HCl [Bystolic*] 5 mg PO DAILY 04/10/17 Olmesartan Medoxomil [Benicar] 20 mg PO BEDTIME 04/10/17 Pantoprazole [Protonix Tab*] 40 mg PO DAILY 04/10/17 Phenytoin Sodium Extended [Dilantin] 100 mg PO QID 04/10/17 Polyethylene Glycol 3350 [Miralax] 17 gm PO DAILYPRN PRN 04/10/17 Quetiapine [Seroquel*] 1 tab PO TID 04/10/17 Solifenacin Succinate [Vesicare] 10 mg PO DAILY 04/10/17 Tamsulosin [Flomax*] 0.4 mg PO DAILY 04/10/17 Bifidobacterium Infantis [Align] 4 mg PO DAILY 11/16/17 Carbidopa/Levodopa [Carbidopa-Levo 25-100 mg Odt] 1 tab PO TID 11/16/17 Ensure Enlive 237 ml PO QID #60 can 11/24/17 Levofloxacin [Levaquin*] 500 mg PO DAILY #10 tab 11/24/17 Memantine HCl [Memantine HCl ER] 28 mg PO DAILY 04/17/18 Ondansetron HCl [Zofran] 4 mg PO PRN 04/17/18 Trazodone [Desyrel*] 50 mg PO DAILY 04/17/18 - Past Medical/Surgical History Diabetic: No -: History of CVA -: HTN -: History of Colon cancer with bowel obstructions. -: Neuropathy -: Vascular Dementia -: Gait instability -: High Fall risk -: Osteoarthritis -: AFIB -: Bowel Resection -: Cholecystectomy -: Tonsillectomy -: Hernia Repair -: R. Rotator Cuff Repair Psychosocial/ Personal History: Lives with son. Has care givers 13/06. Son has POA. - Family History Mother Medical History: Other (see notes) Notes: alzheimers - Social History Smoking Status: Never smoker Alcohol use: No CD- Drugs: No Caffeine use: No Review of Systems 10-point ROS is otherwise unremarkable General: Fever, Weakness Respiratory: Cough, Shortness of Breath Physical Examination Temp Pulse Resp BP Pulse Ox 98.0 F 62 18 141/65 H 95 04/20/18 04:00 04/20/18 04:00 04/20/18 04:00 04/20/18 04:00 04/20/18 04:00 General: Alert, Oriented x3 HEENT: Atraumatic Neck: Supple Respiratory: Crackles/rales (Crackles on the right side) Cardiovascular: No edema, Normal S1 S2 Gastrointestinal: Normal bowel sounds, Soft and benign Musculoskeletal: No clubbing, No swelling Neurological: Other (Patient has prices on the left side due to stroke on the right cerebral hemisphere) - Problems (1) Pneumonia Onset Date: 04/18/18 Current Visit: Yes Status: Acute Plan: Patient is 87 years of age admitted with acute right upper lobe pneumonia patient's white count is declining vital signs stable blood pressure stable change to p.o. levofloxacin 500 mg daily for 7 days patient is eating and drinking check room air pulse ox discharge back to residential Qualifiers: Pneumonia type: due to unspecified organism
[2018-04-20] MEDS: ENSURE ENLIVE 237 ML CAN PO SCH ×4 (09:00→20:57)
[2018-04-20] MEDS: PANTOPRAZOLE 40MG TABLET PO SCH (09:40)
[2018-04-20] MEDS: LACTOBACILLUS/ACIDOPHILUS TAB PO SCH (09:40)
[2018-04-20] MEDS: HYDRALAZINE HCL 25 MG TABLET PO SCH ×4 (09:40→20:54)
[2018-04-20] MEDS: PHENYTOIN ER 100 MG CAP PO SCH ×4 (09:41→20:54)
[2018-04-20] MEDS: METOCLOPRAMIDE 5 MG TAB PO SCH ×2 (09:41→20:56)
[2018-04-20] MEDS: SOLIFENACIN SUCCIN 5 MG TAB PO SCH (09:41)
[2018-04-20] MEDS: ASPIRIN 325 MG TAB PO SCH (09:41)
[2018-04-20] MEDS: BUSPIRONE HCL 5 MG TABLET PO SCH ×3 (09:41→20:55)
[2018-04-20] MEDS: hydroCHLOROthiazide 12.5 MG CAP PO SCH (09:42)
[2018-04-20] MEDS: AMLODIPINE 5 MG TAB PO SCH (09:42)
[2018-04-20] MEDS: CARBIDOPA/LEVODOPA 25/100 TAB PO SCH ×3 (09:43→20:54)
[2018-04-20] MEDS: NEBIVOLOL HCL 5 MG TAB PO SCH (09:43)
[2018-04-20] MEDS: MEMANTINE HCL 10 MG TABLET PO SCH ×2 (09:43→20:56)
[2018-04-20] MEDS: TAMSULOSIN 0.4 MG SR CAP PO SCH (09:43)
[2018-04-20] MEDS: lamoTRIgine 100 MG TAB PO SCH ×2 (09:44→20:55)
[2018-04-20] MEDS: FUROSEMIDE 40 MG/4 ML VIAL IV SCH ×2 (09:44→16:49)
[2018-04-20] MEDS: Levofloxacin 750mg IV 750 MG/150 ML BAG IV SCH (09:45)
[2018-04-20] MEDS: FLUTICASONE 50MCG NASAL SPRAY NAS SCH (10:25)
--- NOTE | 2018-04-20 16:29 | PN ---
Date of Progress Note: 04/20/2018 Subjective: The patient is seen and examined. Chart reviewed and case discussed with RN and Dr. Shirley torres. The patient is doing well, however, still on supplemental oxygen. Case discussed with his so nAlberto. Treatment plan explained. All questions answered. Review of Systems: Negative except as above. Medications: Reviewed. Physical Examination: Vital Signs: Temperature 97.8, heart rate 67, blood pressure 131/66, respirations 20, O2 93% on 5 L via nasal cannula. General: Awake, alert, oriented x2. No acute distress. Elderly male, on 5 L of oxygen. Somewhat i ll-appearing. CV: S1, S2. No murmurs. Regular rate and rhythm. Respiratory: Diminished breath sounds. No wheezing. No stridor. No use of accessory muscles. Gastrointestinal: Abdomen is soft, nontender, and nondistended. Positive bowel sounds. Extremities: No clubbing, cyanosis, edema. Neurologic: Nonfocal. Laboratory Data: Sodium 134, potassium 2.9, chloride 98, CO2 30, BUN 18, creatinine 0.81, glucose 14 1, calcium 8.5, magnesium 1.8. WBC 6.3, H and H 11.5 and 32.7, platelets 126, neutrophils 75%. Bloo d cultures, no growth to date. Sputum cultures pending. Assessment And Plan: An 87-year-old male with: 1.Sepsis secondary to right upper lobe pneumonia, improving. Blood cultures negative to date. Cont inue antibiotics. 2.Right upper lobe pneumonia as well as left-sided pneumonia. We will continue Levaquin and obtain speech evaluation. Son states that the patient is noncompliant due to his dementia. He eats and dri nks whenever he wants and how he wants, does not follow aspiration precautions. He does have 24-hour caregivers, who attempt to make him comply; however, it is difficult. Son is not interested in a mo dified barium swallow study. States that it worsens his ileus and bowel obstructions. The patient i s still requiring supplemental oxygen. We will do room air saturations and wean as tolerated. 3.Hypoxia secondary to above. 4.Ileus, resolved. Tolerating diet. Appreciate Dr. Paulino's input. 5.Hypomagnesemia, replace and monitor. 6.Hyponatremia, improving. We will monitor. 7.Hypokalemia, replace. Continue to monitor potassium level. 8.History of cerebrovascular accident. 9.Dysphagia. 10.Essential hypertension, stable. 11.History of colon cancer with multiple small bowel obstructions. 12.Neuropathy. 13.Vascular dementia without behavioral disturbance. 14.Generalized osteoarthritis. 15.History of paroxysmal atrial fibrillation, currently in sinus rhythm. 16.Benign prostatic hypertrophy. Continue medications. 17.Gastrointestinal and deep venous thrombosis prophylaxis. PPI and Lovenox. Plan: Wean off oxygen, set up home oxygen if meets requirement, discharge in next 24-48 hours if he continues to improve. Appreciate Dr. Munguia's input. /MARILYN Voice ID: [id number] Report ID: [id number]
[2018-04-20] MEDS: ENOXAPARIN 40 MG/0.4 ML SQ SCH (16:49)
[2018-04-20 20:55] LABS: Magnesium 1.9 mg/dL (1.8-2.5); Potassium 3.5 mEq/L (3.6-5.0)
[2018-04-20] MEDS: VALSARTAN 80 MG TAB PO SCH (20:55)
[2018-04-20] MEDS ORDERED: NA CHLORIDE 0.9% 250 ML ONE (22:54)
[2018-04-20] MEDS ORDERED: KCL 20 MEQ/100 mL IVPB 20 MEQ/100 ML BAG IV SCH (23:00)
[2018-04-21] MEDS: NEBIVOLOL HCL 5 MG TAB PO SCH ×2 (03:03→09:00)
[2018-04-21 05:11] LABS: Magnesium 1.9 mg/dL (1.8-2.5); Potassium 3.6 mEq/L (3.6-5.0)
[2018-04-21] MEDS ORDERED: KCL 20 MEQ/100 mL IVPB 20 MEQ/100 ML BAG IV SCH (06:00)
--- NOTE | 2018-04-21 06:50 | EKG ---
Test Date: 2018-04-21 Test Time: 02:43:48 All Terrain Vehicle Racer: RT [place]loan MEASUREMENT RESULTS: Intervals: Rate: 108 AK: QRSD: 112 QT: 312 QTc: 418 [place]: P: 109 AK: QRS: 1 T: 96 INTERPRETIVE STATEMENTS: Atrial flutter with variable AV block with premature ventricular or aberrantly conducted complexes Nonspecific ST and T wave abnormality Abnormal ECG Compared to ECG 04/17/2018 08:25:40 Ventricular premature complex(es) now present Sinus rhythm no longer present Electronically Signed On 04-21-18 06:49:56 CDT by Ehsan Vallejo
[2018-04-21] MEDS: ENSURE ENLIVE 237 ML CAN PO SCH (09:00)
[2018-04-21] MEDS: FLUTICASONE 50MCG NASAL SPRAY NAS SCH (09:00)
[2018-04-21] MEDS: BUSPIRONE HCL 5 MG TABLET PO SCH (09:00)
[2018-04-21] MEDS: Levofloxacin 750mg IV 750 MG/150 ML BAG IV SCH (09:00)
[2018-04-21] MEDS: AMLODIPINE 5 MG TAB PO SCH (09:55)
[2018-04-21] MEDS: lamoTRIgine 100 MG TAB PO SCH (09:55)
[2018-04-21] MEDS: METOCLOPRAMIDE 5 MG TAB PO SCH (09:55)
[2018-04-21] MEDS: PANTOPRAZOLE 40MG TABLET PO SCH (09:55)
[2018-04-21] MEDS: CARBIDOPA/LEVODOPA 25/100 TAB PO SCH (09:55)
[2018-04-21] MEDS: LACTOBACILLUS/ACIDOPHILUS TAB PO SCH (09:55)
[2018-04-21] MEDS: MEMANTINE HCL 10 MG TABLET PO SCH (09:55)
[2018-04-21] MEDS: HYDRALAZINE HCL 25 MG TABLET PO SCH (09:55)
[2018-04-21] MEDS: SOLIFENACIN SUCCIN 5 MG TAB PO SCH (09:55)
[2018-04-21] MEDS: hydroCHLOROthiazide 12.5 MG CAP PO SCH (09:56)
[2018-04-21] MEDS: TAMSULOSIN 0.4 MG SR CAP PO SCH (09:56)
[2018-04-21] MEDS: ASPIRIN 325 MG TAB PO SCH (09:56)
[2018-04-21] MEDS: PHENYTOIN ER 100 MG CAP PO SCH (09:56)
[2018-04-21] MEDS: FUROSEMIDE 40 MG/4 ML VIAL IV SCH (09:58)
[2018-04-21 10:09] VITALS: BP 128/60; TEMP 97.8
[2018-04-21 14:10] VITALS: O2SAT 98
--- NOTE | 2018-04-21 22:21 | DS ---
Date of Discharge: 04/21/2018 Consultants: Dr. Paulino with General surgery, Dr. Munguia with Pulmonology. Admitting Diagnoses: 1. Sepsis secondary to pneumonia. 2. Right upper lobe pneumonia. 3. Ileus. 4. Hyponatremia. 5. History of cerebrovascular accident. 6. Essential hypertension. 7. History of colon cancer with multiple bowel obstructions. 8. Neuropathy. 9. Vascular dementia. 10. Osteoarthritis, generalized. 11. History of paroxysmal atrial fibrillation. 12. Benign prostatic hypertrophy. Discharge Diagnoses: 1. Sepsis, resolved. 2. Right upper lobe pneumonia and left pneumonia, improving. 3. Hypoxia, improved. 4. Ileus, resolved. 5. Hypomagnesemia, replaced. 6. Hyponatremia, improved. 7. Hypokalemia, replaced. 8. History of cerebrovascular accident. 9. Dysphagia, on modified diet. 10. Essential hypertension. 11. History of colon cancer with multiple small bowel obstructions. 12. Neuropathy. 13. Vascular dementia without behavioral disturbance. 14. Generalized osteoarthritis. 15. History of paroxysmal atrial fibrillation. 16. Benign prostatic hypertrophy. Hospital Course: The patient is an 87-year-old demented male with multiple comorbid conditions including CVA, hypertension, AFib, osteoarthritis, neuropathy, history of falls, history of colon cancer with multiple small bowel obstructions, who comes in with shortness of breath. The patient also has Parkinson disease and is on multiple medications. The patient was found to have right-sided pneumonia causing sepsis. The patient also had ileus, and therefore Dr. Paulino with General Surgery was consulted. The patient was kept n.p.o., given bowel rest. The patient's condition improved. His electrolytes including potassium and magnesium were corrected. The patient also had some low sodium. The patient was given IV fluids. His sepsis was treated with IV fluids, IV antibiotics. Cultures were obtained, which were negative to date. The patient's repeat chest x-ray did show some progression of the pneumonia to the left side. Dr. Munguia with Pulmonology was consulted. The patient was requiring supplemental oxygen; however, did have some hypoxia. Home oxygen was unable to be set up as he does not have a chronic condition requiring oxygen and at rest, he is not hypoxic. Likely with the improvement in his pneumonia, his oxygenation level should improve. The patient also has some dysphagia and has been noncompliant with his modified diet. I spoke with the son, who understands the situation and states that they have 24 hours caregivers, who try to prevent further aspiration; however, the patient does what he wants to do and does not follow diet restrictions. The patient does have dementia. The patient overall did well. He had resolution of his sepsis. He remained afebrile. His electrolytes were corrected. Clinically, he improved significantly. His white count normalized. The patient was then cleared for discharge. He was able to eat a regular diet, did not have any further nausea and vomiting, was having bowel movements regularly. The patient was discharged home with home health with PT in stable condition. Activity: Fall precautions as per PT. Medications: As per medication reconciliation list. Diet: Modified diet with thickened liquids. Followup: Follow up with primary care physician in 2-3 days. Follow up with barrel endshaker adjuster, Dr. Munguia in 2 weeks. Return to ER for worsening condition. Total time spent discharging the patient was 39 minutes. Physical Examination: General: Awake, alert, oriented x2. No acute distress. Elderly male. CV: S1, S2. Respiratory: Moving air well bilaterally. Abdomen: Soft, nontender, and nondistended. Positive bowel sounds. Extremities: No clubbing, cyanosis, or edema. SA/MODL Voice ID: [id number] Report ID: [id number] HELDER
== END 2018-04-21 12:19 | disposition home health service (06) | DRG 871 ==
LOC: ER 07:49 → ERHOLD 10:04 → 2ND 14:14
PROVIDERS: ADMIT Family Medicine; ATTEND Family Medicine
DX: A41.9 Sepsis, unspecified organism (principal); J18.9 Pneumonia, unspecified organism; K56.7 Ileus, unspecified; E87.1 Hypo-osmolality and hyponatremia; I10 Essential (primary) hypertension; I48.0 Paroxysmal atrial fibrillation; E83.42 Hypomagnesemia; R09.02 Hypoxemia; G62.9 Polyneuropathy, unspecified; G20 Parkinson's disease; F01.50 Vascular dementia, unspecified severity, without behavioral disturbance, psychotic disturbance, mood disturbance, and anxiety; N40.0 Benign prostatic hyperplasia without lower urinary tract symptoms; M19.90 Unspecified osteoarthritis, unspecified site; Z86.73 Personal history of transient ischemic attack (TIA), and cerebral infarction without residual deficits; Z85.038 Personal history of other malignant neoplasm of large intestine
CPT/HCPCS: 36415; 71045; 74176; 76377; 80048; 80076; 81003; 82550; 83605; 83690; 83735; 83880; 84132; 84145; 84484; 85025; 85610; 85652; 87040; 93005; 94640; 94760; 97163; 99285; J0360; J0696; J1650; J3475; J7030

== ENCOUNTER 2018-04-28 19:17 | Inpatient (IN) | payer OTHER ==
--- OUTSIDE RECORDS SUMMARY | 2018-04-28 19:20 | XMS REPORT | Clinical Summary ---
:1930 Author Organization [facility] Address [address] [place] [address] Care Team Providers Name Role Phone Ana [...] INFLUENZA VACCINE 06/21/2018 Results Not on fileafter 04/27/2017 Insurance Payer Benefit Plan / Group Subscriber ID Type Phone Address FOR LIFE xxxxxxxxx MEDICARE MEDICARE PART A AND B xxxxxxxxxx Medicare [place], [place] AETNA MEDICARE AETNA MEDICARE HMO/PPO [facility] xxxxxxxxx HMO [phone] [place] [id number]
--- NOTE | 2018-04-28 20:52 | RAD REPORT ---
EXAM DESCRIPTION: Shelley Single View04/28/2018 8:19 pm CLINICAL HISTORY: sob COMPARISON: April 19, 2000 FINDINGS: Minimal improvement in a right upper lobe consolidation has occurred. Mild improvement in left opacities seen. Mild right basilar opacities are unchanged. Small pleural effusion is suspected. The heart is borderline enlarged. IMPRESSION: Bilateral pulmonary opacities as described above probably represent pneumonia. The City should be followed until they have cleared to exclude a post obstructive process/underlying mass
[2018-04-28 21:44] LABS: Absolute Lymphocytes (CBC) 1.2 K/uL (0.7-4.9); Absolute Monocytes 0.6 K/uL (0.1-1.3); Absolute Neutrophil 5.9 K/uL (1.8-8.0); Basophils % 0.4 % (0-1.3); Eosinophils % 3.2 % (0-4.4); Lymphocytes % 15.4 % (15.3-44.8); MCH 31.9 pg (27.0-35.0); MPV 7.5 fL (7.6-11.3); Monocytes % 7.1 % (3.3-12.3)
[2018-04-28 21:46] LABS: Protime INR 1.11
--- NOTE | 2018-04-28 21:52 | ER ---
Nurse's Notes [facility] Name: Marcial Groves Age: 87 yrs Sex: Male : 1930 Arrival Date: 04/28/2018 Time: 19:19 Bed 5 Private MD: Diagnosis: Pneumonia due to other specified bacteria-Failed outpatient therapy;Dehydration Presentation: 04/28 19:40 Presenting complaint: Child states: He was hospitalized a week ago today for kerri ea pneumonia, Son reports he was been having a non productive cough, sinus drainage and fever for a few days ago. Son reports pt has been on O2 at three liters. Son states "He just looks like he is getting worse". Transition of care: assisted living. Onset of symptoms was April 28, 2018. Risk Assessment: Do you want to hurt yourself or someone else? Patient reports no desire to harm self or others. Initial Sepsis Screen: Does the patient meet any 2 criteria? No. Patient's initial sepsis screen is negative. Does the patient have a suspected source of infection? Yes: Other: non productive cough, reported to have fever at home. Care prior to arrival: None. 19:40 Method Of Arrival: Wheelchair ea 19:40 Acuity: JER 3 ea Triage Assessment: 19:40 General: Appears in no apparent distress. Behavior is calm, cooperative, appropriate ea for age. Respiratory: Reports cough that is Onset: The symptoms/episode began/occurred son reports he started coughing about 2 days ago, the patient has mild shortness of breath. Historical: - Allergies: 19:58 NKDA; ea - Home Meds: 19:58 Align 4 mg Oral cap daily [Active]; Charito Oral daily [Active]; amlodipine 5 mg tab ea [Active]; B-12 DOTS 500 mcg Oral tab 2 tab daily [Active]; Maria Teresa Aspirin 325 mg Oral tab 1 tab once daily [Active]; Benicar 20 mg Oral tab 1 tab nightly for Hypertension [Active]; buspirone 10 mg Oral tab 1 tab 3 times per day [Active]; Bystolic 5 mg Oral tab 1 tab once daily for Hypertension [Active]; carbidopa-levodopa 25-100 mg Oral tab 3 times per day for Parkinsonism [Active]; Dilantin 100 mg cap Oral 1 cap four times a day [Active]; Flomax 0.4 mg Oral cp24 1 cap once daily for Symptomatic Benign Prostatic Hyperplasia [Active]; Flonase Nasal daily [Active]; hydralazine 75 mg Oral tab 4 times per day for Hypertension [Active]; hydrochlorothiazide 12.5 mg Oral cap 1 cap once daily [Active]; Anuja 0.5-0.4 mg Oral CM24 1 cap once daily for Symptomatic Benign Prostatic Hyperplasia [Active]; vitamin B complex Oral tab [Active]; Vesicare 10 mg Oral tab 1 tab once daily [Active]; trazodone 50 mg Oral tab nightly [Active]; Probiotic Oral [Active]; pantoprazole 40 mg Oral TbEC 1 tab once daily [Active]; Lamictal 100 mg Oral tab 1 tab 2 times per day [Active]; levocetirizine 5 mg Oral tab 1 tab once daily [Active]; melatonin 5 mg Oral cap nightly [Active]; metoclopramide HCl 5 mg Oral tab 1 tab twice a day [Active]; memantine 28 mg Oral tab once daily [Active]; Miralax 17 gram/dose Oral powd once daily [Active]; ondansetron HCl 4 mg Oral tab as needed [Active]; quetiapine 25 mg Oral tab 1 tab 3 times per day [Active]; - PMHx: 19:58 10 BOWEL OBSTRUCTIONS ; "THEY DIDN'T HAVE TO OPERATE ON ANY OF THEM"; Atrial Fib; bowel ea incontinence; colon cancer; CVA; Dementia; Hypertension; Kidney stones; Pancreatitis; Parkinsons; prostatic hyperplasia; psoriasis; pulmonary fibrosis; UTI; VASCULAR DEMENTIA; - PSHx: 19:58 Partial colon removal; Cholecystectomy; Hernia repair; Rotator cuff repair; ea - Immunization history:: Adult Immunizations up to date. - Social history:: Smoking status: Patient/guardian denies using tobacco. - Ebola Screening: : No symptoms or risks identified at this time. Screenin:11 Abuse screen: Denies threats or abuse. Nutritional screening: No deficits noted. ea Tuberculosis screening: No symptoms or risk factors identified. Fall Risk Secondary diagnosis (15 points) dementia. Assessment: 19:40 Pain: Denies pain. Neuro: Level of Consciousness is awake, alert, obeys commands, ea Oriented to person, place, time. Cardiovascular: Heart tones S1 S2 present Patient's skin is warm and dry. Cardiovascular: Cardiovascular: Heart tones S1 S2 present Patient's skin is warm and dry. Respiratory: Airway is patent Respiratory effort is even, unlabored, Respiratory pattern is regular, symmetrical, Breath sounds are diminished bilaterally. GI: No signs and/or symptoms were reported involving the gastrointestinal system. : No signs and/or symptoms were reported regarding the genitourinary system. EENT: No signs and/or symptoms were reported regarding the EENT system. Derm: Skin is dry, Skin is pale, Skin temperature is warm. Musculoskeletal: No signs and/or symptoms reported regarding the musculoskeletal system. 20:00 Cardiovascular: Rhythm is atrial fibrillation. ea 20:15 Reassessment: Patient and/or family updated on plan of care and expected duration. Pain ea level reassessed. Patient is alert, oriented x 3, equal unlabored respirations, skin warm/dry/pink. 21:38 Reassessment: Patient and/or family updated on plan of care and expected duration. Pain ea level reassessed. Pt resting with eyes closed, respirations even and unlabored, chest expansions even and unlabored. No s/s of pain or discomfort noted at this time. 22:15 Reassessment: Patient and/or family updated on plan of care and expected duration. Pain ea level reassessed. Patient is alert, oriented x 3, equal unlabored respirations, skin warm/dry/pink. 23:55 Reassessment: Patient and/or family updated on plan of care and expected duration. Pain ea level reassessed. Patient is alert, oriented x 3, equal unlabored respirations, skin warm/dry/pink. Report called to fourth floor receiving nurse. Vital Signs: 19:40 BP 159 / 75; Pulse 65; Resp 18; Temp 97.5; Pulse Ox 95% on R/A; Pain 6/10; ea 20:15 BP 124 / 80; Pulse 69; Resp 18; Pulse Ox 99% on 2 lpm NC; ea 21:15 BP 124 / 80; Pulse 69; Resp 20; Pulse Ox 99% on 2 lpm NC; ea 22:45 BP 163 / 85; Pulse 61; Resp 18; Pulse Ox 100% on 2 lpm NC; ea 23:59 BP 144 / 81; Pulse 68; Resp 18; Temp 97.6; Pulse Ox 98% on 2 lpm NC; ea ED Course: 19:19 Patient arrived in ED. ds1 19:40 Adrian Jovel PA is PHCP. jr8 19:40 Randell El MD is Attending Physician. jr8 19:40 Patient has correct armband on for positive identification. Bed in low position. Call ea light in reach. Side rails up X2. 19:40 Arm band placed on right wrist. Patient placed in an exam room, on a stretcher, on ea oxygen, on panel monitor, on pulse oximetry. 19:47 Jing Lora RN is Primary Nurse. ea 19:52 Triage completed. ea 20:00 Missed attempt(s): 22 gauge in right forearm. Bleeding controlled, band aid applied, ea catheter tip intact. 20:15 Missed attempt(s): 22 gauge in right antecubital area. Bleeding controlled, band aid ea applied, catheter tip intact. 20:18 X-ray completed. Portable x-ray completed in exam room. Patient tolerated procedure ag1 well. 20:19 XRAY Chest (1 view) In Process Unspecified. EDMS 21:51 She Schneider MD is Hospitalizing Provider. jr8 23:00 Inserted 18 gauge 10 cm midline to left upper basilic vein on first attempt. Line with good blood return and flushes well. 23:48 No provider procedures requiring assistance completed. ea 23:48 Patient admitted, IV remains in place. ea Administered Medications: 23:10 Drug: Zosyn 3.375 grams Route: IVPB; Infused Over: 60 mins; Site: left upper arm; ea 04/29 00:09 Follow up: Response: No adverse reaction; IV Status: Completed infusion ea 00:08 Drug: Clindamycin 600 mg Route: IVPB; Infused Over: 30 mins; Site: left upper arm; ea 00:10 Follow up: Response: No adverse reaction; IV Status: Infusion continued upon admission ea Outcome: 04/28 21:52 Decision to Hospitalize by Provider. jr8 23:58 Admitted to Med/surg accompanied by tech, via stretcher, room 201, Report called to yessenia Spivey RN 23:58 Condition: stable 23:58 Instructed on the need for admit. 04/29 00:41 Patient left the ED. ea Signatures: Dispatcher [employer] EDOH Abigail Johnson RN RN Shelia Frazier ds1 Adrian Jovel PA PA jr8 Linda Zambrano ag1 Jing Lora, RN RN yessenia Corrections: (The following items were deleted from the chart) 04/28 21:37 19:40 Cardiovascular: yessenia casas 21:37 21:36 Cardiovascular: yessenia casas 04/29 00:08 04/28 23:38 Zosyn 3.375 grams IVPB in right antecubital over 60 mins yessenia casas 04/29 00:08 00:02 IV Status: Infusion continued upon admission yessenia casas
[2018-04-28 21:53] LABS: Potassium 4.3 mEq/L (3.6-5.0)
--- NOTE | 2018-04-28 21:53 | EDPHYS ---
Physician Documentation [facility] Name: Marcial Groves Age: 87 yrs Sex: Male : 1930 Arrival Date: 04/28/2018 Time: 19:19 Bed 5 Private MD: ED Physician Randell El HPI: 04/28 21:45 This 87 yrs old Male presents to ER via Wheelchair with complaints of Cough, jr8 Breathing Difficulty. 21:45 The patient or guardian reports cough, that is intermittent, described as mild, with jr8 productive sputum. Onset: The symptoms/episode began/occurred acutely, today. Severity of symptoms: At their worst the symptoms were moderate, in the emergency department the symptoms are unchanged. Modifying factors: The symptoms are alleviated by nothing, the symptoms are aggravated by nothing. Associated signs and symptoms: Pertinent positives: shortness of breath. The patient has experienced a previous episode. The patient has been recently seen by a physician:. Patient was admitted and discharged last week for pneumonia. Has still not been getting better. PCP switched medication from Levaquin to Clindamycin. Had improved somewhat but declined again today with fevers . Historical: - Allergies: 19:58 NKDA; ea - Home Meds: 19:58 Align 4 mg Oral cap daily [Active]; Charito Oral daily [Active]; amlodipine 5 mg tab ea [Active]; B-12 DOTS 500 mcg Oral tab 2 tab daily [Active]; Maria Teresa Aspirin 325 mg Oral tab 1 tab once daily [Active]; Benicar 20 mg Oral tab 1 tab nightly for Hypertension [Active]; buspirone 10 mg Oral tab 1 tab 3 times per day [Active]; Bystolic 5 mg Oral tab 1 tab once daily for Hypertension [Active]; carbidopa-levodopa 25-100 mg Oral tab 3 times per day for Parkinsonism [Active]; Dilantin 100 mg cap Oral 1 cap four times a day [Active]; Flomax 0.4 mg Oral cp24 1 cap once daily for Symptomatic Benign Prostatic Hyperplasia [Active]; Flonase Nasal daily [Active]; hydralazine 75 mg Oral tab 4 times per day for Hypertension [Active]; hydrochlorothiazide 12.5 mg Oral cap 1 cap once daily [Active]; Anuja 0.5-0.4 mg Oral CM24 1 cap once daily for Symptomatic Benign Prostatic Hyperplasia [Active]; vitamin B complex Oral tab [Active]; Vesicare 10 mg Oral tab 1 tab once daily [Active]; trazodone 50 mg Oral tab nightly [Active]; Probiotic Oral [Active]; pantoprazole 40 mg Oral TbEC 1 tab once daily [Active]; Lamictal 100 mg Oral tab 1 tab 2 times per day [Active]; levocetirizine 5 mg Oral tab 1 tab once daily [Active]; melatonin 5 mg Oral cap nightly [Active]; metoclopramide HCl 5 mg Oral tab 1 tab twice a day [Active]; memantine 28 mg Oral tab once daily [Active]; Miralax 17 gram/dose Oral powd once daily [Active]; ondansetron HCl 4 mg Oral tab as needed [Active]; quetiapine 25 mg Oral tab 1 tab 3 times per day [Active]; - PMHx: 19:58 10 BOWEL OBSTRUCTIONS ; "THEY DIDN'T HAVE TO OPERATE ON ANY OF THEM"; Atrial Fib; bowel ea incontinence; colon cancer; CVA; Dementia; Hypertension; Kidney stones; Pancreatitis; Parkinsons; prostatic hyperplasia; psoriasis; pulmonary fibrosis; UTI; VASCULAR DEMENTIA; - PSHx: 19:58 Partial colon removal; Cholecystectomy; Hernia repair; Rotator cuff repair; ea - Immunization history:: Adult Immunizations up to date. - Social history:: Smoking status: Patient/guardian denies using tobacco. - Ebola Screening: : No symptoms or risks identified at this time. ROS: 21:45 Eyes: Negative for injury, pain, redness, and discharge, ENT: Negative for injury, jr8 pain, and discharge, Neck: Negative for injury, pain, and swelling, Cardiovascular: Negative for chest pain, palpitations, and edema, Abdomen/GI: Negative for abdominal pain, nausea, vomiting, diarrhea, and constipation, Back: Negative for injury and pain, MS/Extremity: Negative for injury and deformity, Skin: Negative for injury, rash, and discoloration, Neuro: Negative for headache, weakness, numbness, tingling, and seizure. 21:45 Constitutional: Positive for fever. 21:45 Respiratory: Positive for cough, shortness of breath. Exam: 21:45 Eyes: Pupils equal round and reactive to light, extra-ocular motions intact. Lids and jr8 lashes normal. Conjunctiva and sclera are non-icteric and not injected. Cornea within normal limits. Periorbital areas with no swelling, redness, or edema. ENT: Nares patent. No nasal discharge, no septal abnormalities noted. Tympanic membranes are normal and external auditory canals are clear. Oropharynx with no redness, swelling, or masses, exudates, or evidence of obstruction, uvula midline. Mucous membranes moist. Neck: Trachea midline, no thyromegaly or masses palpated, and no cervical lymphadenopathy. Supple, full range of motion without nuchal rigidity, or vertebral point tenderness. No Meningismus. Cardiovascular: Regular rate and rhythm with a normal S1 and S2. No gallops, murmurs, or rubs. Normal PMI, no JVD. No pulse deficits. Abdomen/GI: Soft, non-tender, with normal bowel sounds. No distension or tympany. No guarding or rebound. No evidence of tenderness throughout. Back: No spinal tenderness. No costovertebral tenderness. Full range of motion. Skin: Warm, dry with normal turgor. Normal color with no rashes, no lesions, and no evidence of cellulitis. MS/ Extremity: Pulses equal, no cyanosis. Neurovascular intact. Full, normal range of motion. Neuro: Awake and alert, GCS 15, oriented to person, place, time, and situation. Cranial nerves II-XII grossly intact. Motor strength 5/5 in all extremities. Sensory grossly intact. Cerebellar exam normal. Normal gait. 21:45 Respiratory: the patient does not display signs of respiratory distress, Respirations: normal, symetrical, no use of accessory muscles, no grunting, no evidence of nasal flaring, no appreciated paradoxical movements, no prolonged exhalations, no pursed lip breathing, no retractions, no shallow respirations, no splinting, no tachypnea, Breath sounds: rales, that are mild, are located in both bases, decreased breath sounds, that are mild, are heard in the left posterior upper lobe, right posterior upper lobe and right posterior middle lobe. Vital Signs: 19:40 BP 159 / 75; Pulse 65; Resp 18; Temp 97.5; Pulse Ox 95% on R/A; Pain 6/10; ea 20:15 BP 124 / 80; Pulse 69; Resp 18; Pulse Ox 99% on 2 lpm NC; ea 21:15 BP 124 / 80; Pulse 69; Resp 20; Pulse Ox 99% on 2 lpm NC; ea 22:45 BP 163 / 85; Pulse 61; Resp 18; Pulse Ox 100% on 2 lpm NC; ea 23:59 BP 144 / 81; Pulse 68; Resp 18; Temp 97.6; Pulse Ox 98% on 2 lpm NC; ea MDM: 19:40 Patient medically screened. rust 21:45 Data reviewed: vital signs, nurses notes, lab test result(s), radiologic studies, plain jr films, and as a result, I will admit patient. Data interpreted: Pulse oximetry: on 3L(s) per nasal canula, is 99 %. Interpretation: normal. Counseling: I had a detailed discussion with the patient and/or guardian regarding: the historical points, exam findings, and any diagnostic results supporting the discharge/admit diagnosis, lab results, radiology results, the need for further work-up and treatment in the hospital. 22:10 ED course: Dr. Schneider notified and will see patient . rust 04/28 19:57 Order name: Basic Metabolic Panel; Complete Time: 21:55 rust 04/28 19:57 Order name: BNP; Complete Time: 22:24 rust 04/28 19:57 Order name: CBC with Diff; Complete Time: 21:50 rust 04/28 19:57 Order name: Magnesium; Complete Time: 21:55 rust 04/28 19:57 Order name: PT-INR; Complete Time: 21:50 rust 04/28 21:51 Order name: Blood Culture Adult (2) rust 04/28 21:51 Order name: Procalcitonin rust 04/28 21:51 Order name: Blood Culture [facility] 04/28 21:51 Order name: Procalcitonin; Complete Time: 22:25 [facility] 04/28 22:12 Order name: CBC with Automated Diff [facility] 04/28 22:12 Order name: CBC with Automated Diff [facility] 04/28 22:12 Order name: Comprehensive Metabolic Panel [facility] 04/28 22:12 Order name: Comprehensive Metabolic Panel [facility] 04/28 22:12 Order name: Lipid Profile [facility] 04/28 19:57 Order name: XRAY Chest (1 view); Complete Time: 20:54 rust 04/28 19:57 Order name: EKG; Complete Time: 19:57 rust 04/28 19:57 Order name: Cardiac monitoring; Complete Time: 21:03 8 04/28 19:57 Order name: EKG - Nurse/Tech; Complete Time: 21:35 8 04/28 19:57 Order name: IV Saline Lock; Complete Time: 23:12 8 04/28 19:57 Order name: Labs collected and sent; Complete Time: 21:35 jr8 04/28 22:12 Order name: Heart Healthy EDMS 04/28 22:12 Order name: Lipid Profile EDMS 04/28 22:12 Order name: Magnesium EDMS 04/28 22:12 Order name: Magnesium EDMS 04/28 22:12 Order name: Phosphorus EDMS 04/28 22:12 Order name: Phosphorus EDMS 04/28 23:21 Order name: Urine Dipstick--Ancillary (enter results) rg2 04/28 23:24 Order name: Urine Dipstick-Ancillary EDMS 04/28 19:57 Order name: O2 Per Protocol; Complete Time: 21:03 rust 04/28 19:57 Order name: O2 Sat Monitoring; Complete Time: 21:04 Administered Medications: 23:10 Drug: Zosyn 3.375 grams Route: IVPB; Infused Over: 60 mins; Site: left upper arm; ea 04/29 00:09 Follow up: Response: No adverse reaction; IV Status: Completed infusion ea 00:08 Drug: Clindamycin 600 mg Route: IVPB; Infused Over: 30 mins; Site: left upper arm; ea 00:10 Follow up: Response: No adverse reaction; IV Status: Infusion continued upon admission ea Disposition: 03:18 Co-signature as Attending Physician, Randell El MD. rn Disposition: 04/28/18 21:52 Hospitalization ordered by She Schneider for Inpatient Admission. Preliminary diagnosis are Pneumonia due to other specified bacteria - Failed outpatient therapy, Dehydration. - Bed requested for Telemetry/MedSurg (Inpatient). - Status is Inpatient Admission. ea - Condition is Fair. - Problem is new. - Symptoms are unchanged. UTI on Admission? No Signatures: Dispatcher [employer] EDMS Osiris Thomas RN RN bb Nieto, Roman, MD MD rn Roszak, Josh, PA PA jr8 Jing Lora RN RN ea Corrections: (The following items were deleted from the chart) 04/28 22:14 21:52 Hospitalization Ordered by She Schneider MD for Inpatient Admission. Preliminary bb diagnosis is Pneumonia due to other specified bacteria - Failed outpatient therapy; Dehydration. Bed requested for Telemetry/MedSurg (Inpatient). Status is Inpatient Admission. Condition is Fair. Problem is new. Symptoms are unchanged. UTI on Admission? No. jr8 04/29 00:41 04/28 22:14 04/28/2018 21:52 Hospitalization Ordered by She Schneider MD for Inpatient ea Admission. Preliminary diagnosis is Pneumonia due to other specified bacteria - Failed outpatient therapy; Dehydration. Bed requested for Telemetry/MedSurg (Inpatient). Status is Inpatient Admission. Condition is Fair. Problem is new. Symptoms are unchanged. UTI on Admission? No. bb
[2018-04-28 21:54] LABS: Magnesium 1.9 mg/dL (1.8-2.5)
[2018-04-28] MEDS ORDERED: ALBUTEROL 2.5 MG/3 ML NEB SOL NEB PRN (22:07)
[2018-04-28] MEDS ORDERED: CLINDAMYCIN 600MG/D5W 600 MG/50 ML BAG IV ONE (23:16)
[2018-04-28] MEDS ORDERED: PIPER/TAZO/NS 3.375gm 3.375 GM/100 ML BAG ONE (23:16)
[2018-04-28 23:24] LABS: Urine Blood NEGATIVE (NEG); Urine Glucose NEGATIVE (NEG); Urine Protein NEGATIVE (NEG); Urine Specific Gravity 1.015 (1.005-1.030); Urine pH 7.5 (5.0-7.0)
[2018-04-29 01:42] VITALS: BMI 26.2
[2018-04-29] MEDS: IPRATROPIUM BROM 0.5MG/2.5ML NEB SCH ×4 (01:50→20:41)
[2018-04-29] MEDS: NA CHLORIDE 0.9% 1,000 ML IV SCH ×2 (02:12→13:52)
[2018-04-29] MEDS ORDERED: PIPERACIL/TAZO 3.375 GM VIAL IV ONE (03:06)
[2018-04-29] MEDS ORDERED: NA CHLORIDE 0.9% 100 ML ONE (04:57)
[2018-04-29] MEDS: PIPER/TAZO/NS 3.375gm 3.375 GM/100 ML BAG IVPB SCH ×4 (05:18→21:20)
[2018-04-29 06:13] LABS: Absolute Lymphocytes (CBC) 0.9 K/uL (0.7-4.9); Absolute Monocytes 0.4 K/uL (0.1-1.3); Absolute Neutrophil 5.4 K/uL (1.8-8.0); Basophils % 0.5 % (0-1.3); Eosinophils % 2.6 % (0-4.4); Hematocrit 33.1 % (39.6-49.0); Lymphocytes % 13.2 % (15.3-44.8); MCH 31.9 pg (27.0-35.0); MCV 91.2 fL (80-100); MPV 7.6 fL (7.6-11.3); Monocytes % 6.2 % (3.3-12.3); RBC Red Blood Cell Count 3.64 M/uL (4.33-5.43)
[2018-04-29 06:54] LABS: ALT/SGPT 16 IU/L (10-60); AST/SGOT 26 IU/L (10-42); Albumin 2.9 g/dL (3.2-5.5); Alkaline Phosphatase 100 IU/L (42-121); BUN Blood Urea Nitrogen 12 mg/dL (6-20); Bicarbonate 26 mEq/L (21-31); Bilirubin Total 0.2 mg/dL (0.3-1.2); Glucose Level 128 mg/dL (65-120); HDL Cholesterol 32 mg/dL (27-67); LDL Cholesterol, Calculated 57 (<130); Magnesium 1.9 mg/dL (1.8-2.5); Phosphorus 3.5 mg/dL (2.5-4.3); Potassium 4.3 mEq/L (3.6-5.0); Protein, Total 5.1 g/dL (6.0-8.3); Sodium Level 137 mEq/L (135-145)
--- NOTE | 2018-04-29 07:56 | EKG ---
Test Date: 2018-04-28 Test Time: 21:11:26 Change Management Consultant: SAKINA MEASUREMENT RESULTS: Intervals: Rate: 73 VT: QRSD: 106 QT: 422 QTc: 464 [place]: P: VT: QRS: 15 T: 39 INTERPRETIVE STATEMENTS: Atrial flutter with variable AV block Abnormal ECG Compared to ECG 04/21/2018 02:43:48 Ventricular premature complex(es) no longer present ST (T wave) deviation no longer present Electronically Signed On 04-29-18 07:54:55 CDT by Vicente Guzman
[2018-04-29] MEDS ORDERED: DUTASTERIDE PO SCH (09:00)
[2018-04-29] MEDS ORDERED: TAMSULOSIN HCL PO SCH (09:00)
[2018-04-29] MEDS: HOME MED 1 EA UNK (Memantine Hcl [Namenda Xr] 28 MG) PO SCH (09:00)
[2018-04-29] MEDS ORDERED: VALSARTAN 80 MG TAB PO SCH (09:00)
[2018-04-29] MEDS: DUTASTERIDE 0.5 MG GEL CAP PO SCH (10:10)
[2018-04-29] MEDS: SOLIFENACIN SUCCIN 5 MG TAB PO SCH (10:10)
[2018-04-29] MEDS: NEBIVOLOL HCL 5 MG TAB PO SCH (10:10)
[2018-04-29] MEDS: QUETIAPINE 25 MG TAB PO SCH ×3 (10:10→21:18)
[2018-04-29] MEDS: CARBIDOPA/LEVODOPA 25/100 TAB PO SCH ×3 (10:10→21:18)
[2018-04-29] MEDS: PANTOPRAZOLE 40MG TABLET PO SCH (10:11)
[2018-04-29] MEDS: BUSPIRONE HCL 5 MG TABLET PO SCH ×3 (10:11→21:18)
[2018-04-29] MEDS: TRAZODONE 50 MG TABLET PO SCH (10:11)
[2018-04-29] MEDS: TAMSULOSIN 0.4 MG SR CAP PO SCH ×2 (10:11→21:18)
[2018-04-29] MEDS: ASPIRIN EC 325 MG TABLET PO SCH (10:11)
[2018-04-29] MEDS: PHENYTOIN ER 100 MG CAP PO SCH ×4 (10:11→21:17)
[2018-04-29] MEDS: lamoTRIgine 100 MG TAB PO SCH ×2 (11:03→21:18)
[2018-04-29] MEDS ORDERED: HOME MED 1 EA UNK (Olmesartan Medoxomil [Benicar] 20 MG) PO SCH (21:00)
[2018-04-29] MEDS ORDERED: ENSURE ENLIVE 237 ML CAN PO SCH (21:00)
[2018-04-29] MEDS: ENSURE ENLIVE 237 ML CAN PO SCH (21:20)
[2018-04-30] MEDS: IPRATROPIUM BROM 0.5MG/2.5ML NEB SCH ×4 (02:21→19:57)
[2018-04-30] MEDS: PIPER/TAZO/NS 3.375gm 3.375 GM/100 ML BAG IVPB SCH ×3 (05:49→21:03)
[2018-04-30] MEDS: ENSURE ENLIVE 237 ML CAN PO SCH ×3 (09:00→21:06)
[2018-04-30] MEDS: HOME MED 1 EA UNK (Memantine Hcl [Namenda Xr] 28 MG) PO SCH (09:00)
[2018-04-30] MEDS: SOLIFENACIN SUCCIN 5 MG TAB PO SCH (09:27)
[2018-04-30] MEDS: CARBIDOPA/LEVODOPA 25/100 TAB PO SCH ×3 (09:27→21:04)
[2018-04-30] MEDS: lamoTRIgine 100 MG TAB PO SCH ×2 (09:27→21:04)
[2018-04-30] MEDS: BUSPIRONE HCL 5 MG TABLET PO SCH ×3 (09:28→21:04)
[2018-04-30] MEDS: ASPIRIN EC 325 MG TABLET PO SCH (09:28)
[2018-04-30] MEDS: TRAZODONE 50 MG TABLET PO SCH (09:28)
[2018-04-30] MEDS: PANTOPRAZOLE 40MG TABLET PO SCH (09:28)
[2018-04-30] MEDS: TAMSULOSIN 0.4 MG SR CAP PO SCH ×2 (09:28→21:04)
[2018-04-30] MEDS: PHENYTOIN ER 100 MG CAP PO SCH ×4 (09:28→21:04)
[2018-04-30] MEDS: NEBIVOLOL HCL 5 MG TAB PO SCH ×2 (09:28→21:05)
[2018-04-30] MEDS: QUETIAPINE 25 MG TAB PO SCH ×3 (09:28→21:04)
[2018-04-30] MEDS: DUTASTERIDE 0.5 MG GEL CAP PO SCH (09:28)
[2018-04-30 11:41] LABS: Absolute Lymphocytes (CBC) 1.1 K/uL (0.7-4.9); Absolute Monocytes 0.5 K/uL (0.1-1.3); Absolute Neutrophil 7.4 K/uL (1.8-8.0); Basophils % 0.5 % (0-1.3); Eosinophils % 2.9 % (0-4.4); Hematocrit 36.7 % (39.6-49.0); Lymphocytes % 11.8 % (15.3-44.8); MCH 31.1 pg (27.0-35.0); MCV 93.2 fL (80-100); MPV 7.8 fL (7.6-11.3); RBC Red Blood Cell Count 3.93 M/uL (4.33-5.43)
[2018-04-30 12:02] LABS: Phosphorus 2.9 mg/dL (2.5-4.3); Potassium 4.1 mEq/L (3.6-5.0)
--- NOTE | 2018-04-30 16:34 | RAD REPORT ---
EXAM DESCRIPTION: Shelley Single View04/30/2018 4:15 pm CLINICAL HISTORY: Chest pain COMPARISON: April 29, 2018 FINDINGS: No significant change in bilateral pulmonary opacities right greater left probably represe nting pneumonia. Small pleural effusions are suspected. The heart is normal size IMPRESSION: No significant change in bilateral pulmonary opacities probably representing pneumonia
[2018-04-30 20:28] VITALS: O2SAT 98
[2018-05-01] MEDS: IPRATROPIUM BROM 0.5MG/2.5ML NEB SCH ×2 (01:19→07:36)
[2018-05-01] MEDS: PIPER/TAZO/NS 3.375gm 3.375 GM/100 ML BAG IVPB SCH ×2 (05:24→13:00)
--- NOTE | 2018-05-01 08:23 | P.HP ---
Certification for Inpatient Patient admitted to: Inpatient With expected LOS: >2 Midnights Patient will require the following post-hospital care: None Practitioner: I am a practitioner with admitting privileges, knowledge of patient current condition, hospital course, and medical plan of care. Services: Services provided to patient in accordance with Admission requirements found in Title 42 Section 412.3 of the Code of Federal Regulations Patient History Date of Service: 04/28/18 Reason for admission: PNEUMONIA History of Present Illness: Patient is an 87-year-old gentleman who came into the hospital with recurrent pneumonia. Patient was taking clindamycin at home it was doing better for a few days. However, his symptoms started getting progressively worse. He came into the hospital for further evaluation. In the emergency room his x-rays revealed worsening pneumonia. Patient was admitted to the hospital and started on broadened antibiotic coverage. Clinically patient appears to be doing okay although he is hypoxic. He also gets really short of breath quickly. Patient has a preschool assistant who helps with his daily needs. His son is his medical power of admitted attorneys. Patient will be admitted to the hospital for further treatment of his pneumonia. Also it has been noted that patient's blood pressure has been running really low. Apparently the family is been holding patient's blood pressure medications for days. Will monitor patient's blood pressure closely and resume medicines as necessary. Allergies No Known Drug Allergies Allergy (Verified 04/17/18 14:43) Unknown Home Medications: Aspirin [Aspirin EC 325 MG] 325 mg PO DAILY 04/29/18 Bacillus Coagulans/Inulin [Probiotic Formula Capsule] 1 cap PO DAILY 04/29/18 Buspirone HCl [Buspar*] 10 mg PO TID 04/29/18 Carbidopa/Levodopa [Carbidopa-Levodopa 25-100 Tab] 1 tab PO TID 04/29/18 Clindamycin HCl 300 mg PO Q8H 04/29/18 Clindamycin HCl [Cleocin Cap] 150 mg PO Q8H 04/29/18 Dutasteride/Tamsulosin HCl [Dutasteride-Tamsulosin 0.5-0.4] 1 cap PO DAILY 04/29 Fexofenadine HCl [Charito Allergy] 180 mg PO BEDTIME PRN PRN 04/29/18 Gnp B-50 Complex 1 tab PO DAILY 04/29/18 Hydralazine HCl 25 mg PO QIDP PRN 04/29/18 Hydralazine HCl 50 mg PO QID 04/29/18 L.acidoph,Paracasei, B.lactis [Probiotic] 1 cap PO DAILY 04/29/18 Lamotrigine [Lamictal] 100 mg PO BID 04/29/18 Melatonin/Pyridoxine [Melatonin 5 mg Tablet] 5 mg PO BEDTIME 04/29/18 Memantine HCl [Namenda Xr] 28 mg PO DAILY 04/29/18 Metoclopramide HCl 5 mg PO BID 04/29/18 Nebivolol HCl [Bystolic] 5 mg PO DAILY 04/29/18 Olmesartan Medoxomil [Benicar] 20 mg PO BEDTIME 04/29/18 Ondansetron [Ondansetron Odt] 4 mg PO DAILYPRN PRN 04/29/18 Pantoprazole Sodium [Protonix] 40 mg PO DAILY 04/29/18 Phenytoin Sodium Extended [Dilantin] 100 mg PO QID 04/29/18 Quetiapine Fumarate [Seroquel] 25 mg PO TID 04/29/18 Solifenacin Succinate [Vesicare] 10 mg PO DAILY 04/29/18 Tamsulosin [Flomax*] 0.4 mg PO BEDTIME 04/29/18 Trazodone [Desyrel*] 50 mg PO DAILY 04/29/18 Vitamin B Complex [B-Complex Vitamin] 1 cap PO DAILY 04/29/18 hydroCHLOROthiazide [Hydrochlorothiazide] 12.5 mg PO DAILY 04/29/18 Albuterol Neb [Proventil 0.083% Neb Soln] 2.5 mg IH Q6HP PRN #2 box 04/30/18 Amox/Clavulanate [Augmentin 875-125 Tab] 1 each PO BID #14 tab 04/30/18 Nebulizer Accessories [Aeroneb Go] 1 each MC DAILY #1 each 04/30/18 Nebulizer Accessories [Mouthpiece] 1 each MC DAILY PRN #2 each 04/30/18 Nebulizer Accessories [Pillow Mask] 1 each DAILY #1 each 04/30/18 Nebulizer [Aeroneb Go Nebulizer] 1 each ONCE #1 each 04/30/18 Nebulizer and Compressor [Easy Air Compressor Nebulizer] 1 each MC DAILY #1 each 04/30/18 predniSONE [Deltasone] 20 mg PO DAILY #5 tab 04/30/18 - Past Medical/Surgical History Has patient received pneumonia vaccine in the past: Yes Diabetic: No -: History of CVA -: HTN -: History of Colon cancer with bowel obstructions. -: Neuropathy -: Vascular Dementia -: Gait instability -: High Fall risk -: Osteoarthritis -: AFIB -: Bowel Resection -: Cholecystectomy -: Tonsillectomy -: Hernia Repair -: R. Rotator Cuff Repair Psychosocial/ Personal History: Lives with son. Has care givers 13/06. Son has POA. - Family History Mother Medical History: Other (see notes) Notes: alzheimers - Social History Smoking Status: Former smoker Alcohol use: Yes CD- Drugs: No Caffeine use: No Place of Residence: [place]irement Review of Systems 10-point ROS is otherwise unremarkable Physical Examination - Vital Signs Temperature: 98.1 F Blood Pressure: 150/75 Pulse: 78 Respirations: 14 Pulse Ox (%): 98 - Physical Exam General: Alert, In no apparent distress, Oriented x2 HEENT: Atraumatic, PERRLA, Mucous membr. moist/pink, EOMI, Sclerae nonicteric Neck: Supple, 2+ carotid pulse no bruit, No LAD, Without JVD or thyroid abnormality Respiratory: Diminished, Rhonchi/gurgles Cardiovascular: Regular rate/rhythm, Normal S1 S2, Systolic murmur Gastrointestinal: Normal bowel sounds, Soft and benign, Non-distended, No tenderness Musculoskeletal: No clubbing, No swelling, No tenderness Integumentary: No rashes Neurological: Normal speech, Normal tone, Sensation intact, Cranial nerves 3-12 intact, Normal affect, Abnormal gait, Abnormal strength Lymphatics: No axilla or inguinal lymphadenopathy Assessment & Plan - Problems (Diagnosis) (1) Labile hypertension Current Visit: Yes Status: Acute (2) Altered mental status Onset Date: 02/03/17 Current Visit: No Status: Acute Qualifiers: Altered mental status type: unspecified Qualified Code(s): R41.82 - Altered mental status, unspecified (3) Pneumonia Onset Date: 05/31/16 Current Visit: No Status: Acute Qualifiers: Pneumonia type: aspiration pneumonia Aspiration pneumonia type: unspecified Laterality: right Lung location: lower lobe of lung Qualified Code(s): J69.0 - Pneumonitis due to inhalation of food and vomit (4) COPD (chronic obstructive pulmonary disease) Onset Date: 12/02/16 Current Visit: No Status: Chronic Qualifiers: COPD type: chronic bronchitis Chronic bronchitis type: unspecified Qualified Code(s): J42 - Unspecified chronic bronchitis (5) HTN (hypertension) Onset Date: 05/17/16 Current Visit: No Status: Chronic Qualifiers: Hypertension type: essential hypertension Qualified Code(s): I10 - Essential (primary) hypertension (6) History of CVA (cerebrovascular accident) Current Visit: No Status: Chronic (7) Parkinsons disease Onset Date: 09/30/16 Current Visit: No Status: Chronic (8) Recurrent pneumonia Current Visit: Yes Status: Acute - Plan Plan: 1. Continue with IV antibiotics 2. Awaiting blood culture 3. Repeat chest x-ray 4. Will proceed with CT scan of the chest if pneumonia is not improved 5. Monitor hemodynamics closely 6. Continue with nebs as needed 7. O2 per protocol 8. Continue with gentle hydration 9. Repeat labs including CBC and renal function in a.m. 10. GI and DVT prophylaxis - Advance Directives Does patient have a Living Will: Yes Does patient have a Durable POA for Healthcare: Yes - Code Status/Comfort Care Code Status Assessed: Yes Code Status: Full Code Critical Care: No Time Spent Managing PTS Care (In Minutes): 50
--- NOTE | 2018-05-01 08:31 | P.PN ---
Subjective Date of Service: 04/29/18 Subjective: No new changes, No C/O voiced, Improving Review of Systems 10-point ROS is otherwise unremarkable Physical Examination - Vital Signs Temperature: 98.1 F Blood Pressure: 150/75 Pulse: 78 Respirations: 14 Pulse Ox (%): 98 - Physical Exam General: Alert, In no apparent distress, Oriented x3 Neck: Supple, JVD not distended Respiratory: Clear to auscultation bilaterally, Normal air movement Cardiovascular: Regular rate/rhythm, Normal S1 S2, No murmurs Gastrointestinal: Normal bowel sounds, Soft and benign, Non-distended, No tenderness Musculoskeletal: No swelling, No erythema, No tenderness Neurological: Normal speech, Normal tone, Sensation intact, Cranial nerves 3-12 intact, Normal affect, Abnormal strength - Studies Medications List Reviewed: Yes Assessment & Plan - Problems (Diagnosis) (1) Labile hypertension Current Visit: Yes Status: Acute (2) Altered mental status Onset Date: 02/03/17 Current Visit: No Status: Acute Qualifiers: Altered mental status type: unspecified Qualified Code(s): R41.82 - Altered mental status, unspecified (3) Pneumonia Onset Date: 05/31/16 Current Visit: No Status: Acute Qualifiers: Pneumonia type: aspiration pneumonia Aspiration pneumonia type: unspecified Laterality: right Lung location: lower lobe of lung Qualified Code(s): J69.0 - Pneumonitis due to inhalation of food and vomit (4) COPD (chronic obstructive pulmonary disease) Onset Date: 12/02/16 Current Visit: No Status: Chronic Qualifiers: COPD type: chronic bronchitis Chronic bronchitis type: unspecified Qualified Code(s): J42 - Unspecified chronic bronchitis (5) HTN (hypertension) Onset Date: 05/17/16 Current Visit: No Status: Chronic Qualifiers: Hypertension type: essential hypertension Qualified Code(s): I10 - Essential (primary) hypertension (6) History of CVA (cerebrovascular accident) Current Visit: No Status: Chronic (7) Parkinsons disease Onset Date: 09/30/16 Current Visit: No Status: Chronic (8) Recurrent pneumonia Current Visit: Yes Status: Acute - Plan Plan: 1. Continue with IV antibiotics; change patient to inpatient 2. Awaiting blood culture; 3. Repeat chest x-ray in the morning 4. Out of bed to chair 5. Monitor hemodynamics closely; we had to restart a couple blood pressure medications. Continue to monitor closely. 6. Continue with nebs as needed 7. O2 per protocol 8. Continue with gentle hydration 9. Repeat labs including CBC and renal function in a.m. 10. GI and DVT prophylaxis Discharge Plan: Home Plan to discharge in: Greater than 2 days - Advance Directives Does patient have a Living Will: Yes Does patient have a Durable POA for Healthcare: Yes - Code Status/Comfort Care Code Status: Full Code Critical Care: No Time Spent Managing PTS Care (In Minutes): 30
--- NOTE | 2018-05-01 08:33 | P.PN ---
Subjective Date of Service: 04/30/18 Subjective: No new changes, No C/O voiced, Improving Pneumonia is slowly clearing up. Patient's symptoms are resolving. Blood pressure is better controlled. Review of Systems 10-point ROS is otherwise unremarkable Physical Examination - Vital Signs Temperature: 98.1 F Blood Pressure: 150/75 Pulse: 78 Respirations: 14 Pulse Ox (%): 98 - Physical Exam General: Alert, In no apparent distress, Oriented x3 Respiratory: Clear to auscultation bilaterally, Normal air movement Cardiovascular: Regular rate/rhythm, Normal S1 S2, No murmurs Gastrointestinal: Normal bowel sounds, Soft and benign, Non-distended, No tenderness Musculoskeletal: No clubbing, No swelling, No tenderness Neurological: Normal speech, Normal tone, Normal affect - Studies Medications List Reviewed: Yes Assessment & Plan - Problems (Diagnosis) (1) Labile hypertension Status: Acute (2) Altered mental status Onset Date: 02/03/17 Status: Acute Qualifiers: Altered mental status type: unspecified Qualified Code(s): R41.82 - Altered mental status, unspecified (3) Pneumonia Onset Date: 05/31/16 Status: Acute Qualifiers: Pneumonia type: aspiration pneumonia Aspiration pneumonia type: unspecified Laterality: right Lung location: lower lobe of lung Qualified Code(s): J69.0 - Pneumonitis due to inhalation of food and vomit (4) COPD (chronic obstructive pulmonary disease) Onset Date: 12/02/16 Status: Chronic Qualifiers: COPD type: chronic bronchitis Chronic bronchitis type: unspecified Qualified Code(s): J42 - Unspecified chronic bronchitis (5) HTN (hypertension) Onset Date: 05/17/16 Status: Chronic Qualifiers: Hypertension type: essential hypertension Qualified Code(s): I10 - Essential (primary) hypertension (6) History of CVA (cerebrovascular accident) Status: Chronic (7) Parkinsons disease Onset Date: 09/30/16 Status: Chronic (8) Recurrent pneumonia Status: Acute - Plan Plan: Patient appears to be doing better. However, blood pressure was elevated so we had her restart a couple of his home blood pressure medications. Continue with current treatment for the pneumonia with antibiotics. Cultures are negative. Hemodynamics have been stable. Monitor O2 and check O2 sats. - Advance Directives Does patient have a Living Will: Yes Does patient have a Durable POA for Healthcare: Yes - Code Status/Comfort Care Code Status: Full Code Critical Care: No Time Spent Managing PTS Care (In Minutes): 30
[2018-05-01] MEDS: SOLIFENACIN SUCCIN 5 MG TAB PO SCH (08:49)
[2018-05-01] MEDS: BUSPIRONE HCL 5 MG TABLET PO SCH (08:49)
[2018-05-01] MEDS: NEBIVOLOL HCL 5 MG TAB PO SCH (08:51)
[2018-05-01] MEDS: CARBIDOPA/LEVODOPA 25/100 TAB PO SCH (08:51)
[2018-05-01] MEDS: PANTOPRAZOLE 40MG TABLET PO SCH (08:51)
[2018-05-01] MEDS: ASPIRIN EC 325 MG TABLET PO SCH (08:51)
[2018-05-01] MEDS: TRAZODONE 50 MG TABLET PO SCH (08:51)
[2018-05-01] MEDS: PHENYTOIN ER 100 MG CAP PO SCH (08:51)
[2018-05-01] MEDS: DUTASTERIDE 0.5 MG GEL CAP PO SCH (08:52)
[2018-05-01] MEDS: QUETIAPINE 25 MG TAB PO SCH (08:53)
[2018-05-01] MEDS: ENSURE ENLIVE 237 ML CAN PO SCH (08:53)
[2018-05-01] MEDS: lamoTRIgine 100 MG TAB PO SCH (08:53)
[2018-05-01] MEDS: TAMSULOSIN 0.4 MG SR CAP PO SCH (09:00)
[2018-05-01] MEDS ORDERED: MEMANTINE HCL 10 MG TABLET PO SCH (09:00)
[2018-05-02 07:36] VITALS: BP 150/75; TEMP 98.1
--- NOTE | 2018-05-30 06:31 | DS ---
Date of Discharge: 05/01/2018 Admitting Diagnoses: 1. Labile hypertension. 2. Altered mental status. 3. Pneumonia. 4. Chronic obstructive pulmonary disease. 5. Hypertension. 6. History of cerebrovascular accident. 7. Parkinson disease. 8. Recurrent pneumonia. Discharge Diagnoses: 1. Labile hypertension. 2. Altered mental status. 3. Pneumonia. 4. Chronic obstructive pulmonary disease. 5. Hypertension. 6. History of cerebrovascular accident. 7. Parkinson disease. 8. Recurrent pneumonia. Hospital Course: The patient is an 87-year-old male who comes in with recurrent pneumonia. He was admitted to the hospital for IV fluids and IV antibiotics. The patient did well over the course of the hospital stay. His symptoms improved. Chest x-ray was repeated, which showed some opacities in the right greater than the left and some small pleural effusions. His condition otherwise was clinically much better. Vital signs were stable. He was afebrile. He was saturating 97% on 2 L via nasal cannula. The patient was then cleared for discharge and was discharged home with home health care. He was sent home in stable condition. total time spent discharging pt was 32 minutes. Activity: As tolerated. No strenuous activity. Fall precautions. Diet: Regular. Disposition And Condition On Discharge: Discharged home in stable condition. Followup: Follow up with PCP in 1-2 weeks. Follow up with expressive art therapist in 1- 2 weeks. Return to ER for worsening condition. The patient was seen with mid- level provider, Aldo Jovel, nurse practitioner. Agreed with his assessment and plan. LION Voice ID: [id number] Report ID: [id number] HELDER
== END 2018-05-01 13:51 | disposition home health service (06) | DRG 179 ==
LOC: ER 19:17 → ERHOLD 22:23 → INTOOBSV 22:23 → 4TH 04-29 00:09 → OBSVTOIN 04-30 10:35
PROVIDERS: ADMIT Hospitalist; ATTEND Family Medicine
DX: J69.0 Pneumonitis due to inhalation of food and vomit (principal); I10 Essential (primary) hypertension; F01.50 Vascular dementia, unspecified severity, without behavioral disturbance, psychotic disturbance, mood disturbance, and anxiety; M19.90 Unspecified osteoarthritis, unspecified site; I48.91 Unspecified atrial fibrillation; J44.9 Chronic obstructive pulmonary disease, unspecified; G20 Parkinson's disease; Z87.891 Personal history of nicotine dependence; Z86.73 Personal history of transient ischemic attack (TIA), and cerebral infarction without residual deficits
CPT/HCPCS: 36415; 71045; 80048; 80053; 80061; 81003; 83735; 83880; 84100; 84145; 85025; 85610; 87040; 93005; 94640; 94760; 96365; 96375; 97163; 99285; G0378; J2543; J7030

== ENCOUNTER 2018-05-12 04:27 | Observation (INO) | payer OTHER ==
--- OUTSIDE RECORDS SUMMARY | 2018-05-12 04:30 | XMS REPORT | Clinical Summary ---
:1930 Author Organization [facility] Address [address] [place] [address] Care Team Providers Name Role Phone Ana [...] INFLUENZA VACCINE 06/21/2018 Results Not on fileafter 05/11/2017 Insurance Payer Benefit Plan / Group Subscriber ID Type Phone Address FOR LIFE xxxxxxxxx MEDICARE MEDICARE PART A AND B xxxxxxxxxx Medicare [place], [place] AETNA MEDICARE AETNA MEDICARE HMO/PPO [facility] xxxxxxxxx HMO [phone] [place] [id number]
[2018-05-12] MEDS ORDERED: ALBUTEROL 2.5 MG/3 ML NEB SOL ONE (04:37)
[2018-05-12] MEDS ORDERED: IPRATROPIUM BROM 0.5MG/2.5ML ONE ×2 (04:37→07:28)
--- OUTSIDE RECORDS SUMMARY | 2018-05-12 04:40 | XMS REPORT | Continuity of Care Document ---
:1930 Author Organization Interface Problems Problem Status Onset Classification Date Comments Source Date Reported CHEST PAIN Active 01/07/[address] SOB Active 01/07/[address] PULMONARY Active 11/05/20 [facility] FIBROSIS 16 [facility] Center PERSISTENT Active 10/04/20 [facility] NAUSEA AND 16 Medical VOMITING Center OTHER Active 10/04/20 [place] [address] Medical Center F/U Active 03/03/20 [facility] 16 NEURO 1 YR F/U Active 02/19/20 [facility] 16 INTRACTABLE N/V Active 08/19/20 [place] [address] Medical Center Discharge 08/17/20 08/20/2015 [facility] Diagnosis: 15 Medical Acute UTI Center N/V Active 08/17/20 [place] [address] Medical Center VOMITTING,AMEYA Active 08/02/20 [place] [address] Medical Center VOMITTING Active 08/02/20 [place] [address] Medical Center F/U Active 04/21/20 [facility] 15 SLEEP APNEA F/U Active 04/15/20 [facility] 15 SLEEP APNEA F/U Active 04/04/20 [facility] 15 MELECIO Active 12/10/19 [facility] 15 FOLLOW UP Active 11/26/19 [place] [address] Medical [place], [facility] VOMITING Active 11/13/[address] Center GI CONSULT Active 10/30/[address] LOUD SNORING Active 10/23/20 [facility] 14 SMALL BOWEL Active 12/06/19 [facility] OBSTRUCTION [address] [place] [address] SBO Active 12/29/[address] FU Active 08/03/20 [facility] 12 786.7 Active 04/19/[address] CPAP/BPAP Active 01/25/20 [facility] 12 SLEEP APNEA Active 01/12/20 [facility] 12 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/2013 [facility] 11 [place] [facility] 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 [facility],[address] 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 [facility] nares(<span 11 Medical ID="[id number]" Center, >Stable</span>) [facility] 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 03/11/2017 [facility] tobias(<span 11 Medical ID="[id number]" Center, >Stable</span>) [facility] CVA (<span Resolved 11/21/19 Problem 01/17/2014 [place] ID="[id number] Medical ">Confirmed</sp Center an>) CVA (<span Resolved 11/21/19 Problem 08/20/2015 [place] ID="[id number] Medical ">Confirmed</sp Center, an>) [facility] (<span Resolved 11/21/19 Problem 04/28/2018 [facility] ID="[id number] 11 [place] ">Confirmed</sp Imaging, an>) [facility] CVA (<span Resolved 11/21/19 Problem 08/25/2015 [place] ID="[id number] Medical ">Confirmed</sp Center an>) Dementia, Resolved 11/21/19 Problem 01/17/[address] Dementia, Active 11/21/19 Problem 08/25/2015 [facility] vascular [address] [place] [address] Center, [facility] Dementia, Active 11/21/19 Problem 04/28/2018 [facility] vascular 09 [facility], [facility] TIA (<span Resolved 11/21/18 Problem 08/20/2015 [place] ID="[id number] Medical ">Confirmed</sp Center, an>) [facility] TIA (<span Resolved 11/21/18 Problem 04/28/2018 [place] ID="[id number] Medical ">Confirmed</sp Center, an>) [facility] TIA (<span Resolved 11/21/18 Problem 03/11/2017 [place] ID="[id number] Medical ">Confirmed</sp Center, an>) [facility] TIA (<span Resolved 11/21/18 Problem 08/25/2015 [place] ID="[id number] Medical ">Confirmed</sp Center an>) Skin at risk of Resolved Problem 12/09/2012 [facility], breakdown OPIJose Osborn BPH Active Problem 01/04/2013 RAKAN Cardenas [facility] Chronic pain Active Problem 01/04/2013 RAKAN Cardenas [facility] Impaired Active Problem 01/04/2013 OPIJose physical [place], mobility [facility] Retention of Active Problem 01/04/2013 1needs OPIJose urine<sup>1</balderas straight [place], p> cath every 6 [facility], hrs or as [place] needed if Medical bladder is Center distended Skin at risk of Active Problem 05/03/2012 RAKAN breakdown [place],[facility] Stroke Active Problem 01/04/2013 RAKAN Cardenas [facility] CHF - Resolved Problem 01/03/2014 [facility] Congestive heart failure Chronic pain Resolved Problem 01/03/2014 [facility] Headache Active Problem 01/03/2014 [facility] Impaired Active Problem 01/03/2014 [facility] physical mobility Skin at risk of Resolved Problem 01/17/2014 [facility] Cancer of colon Resolved Problem 01/04/2013 RAKAN Cardenas [facility] CHF - Resolved Problem 01/04/2013 OPIJose Congestive [place], heart failure [facility] Dysphagia Resolved Problem 01/04/2013 RAKAN Cardenas [facility] Headache Active Problem 01/04/2013 RAKAN Cardenas [facility] HTN - Active Problem 01/04/2013 OPIJose Hypertension Ronald [facility] MELECIO - Active Problem 01/04/2013 RAKAN Obstructive [place], sleep apnea [facility] Psoriasis Resolved Problem 01/04/2013 RAKAN Cardenas [facility] Seizures Resolved Problem 01/04/2013 OPIJose complicating [place] intracranial [facility], hemorrhage [facility] Skin at risk of Resolved Problem 01/04/2013 [facility] AF (<span Resolved Problem 04/28/2018 [facility] ID="[id number] Medical ">Confirmed</sp [place], an>) OPID [facility] Bowel Resolved Problem 04/28/2018 [facility] obstruction [facility], [facility] BPH Active Problem 04/28/2018 [facility], OPID [facility] Cancer of colon Resolved Problem 04/28/2018 [facility], OPID [facility] Dysphagia Resolved Problem 04/28/2018 [facility], OPID [facility] HTN - Active Problem 04/28/2018 [facility], Hypertension [facility], OPID [facility] Hyponatremia Resolved Problem 04/28/2018 [facility], OPID [facility] Impaired Active Problem 04/28/2018 [facility] physical Medical mobility (<[facility], ID="[id number]" OPID >Confirmed</spa [place] n>) Imaging 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 [facility], [facility] MELECIO - Active Problem 04/28/2018 [facility], Obstructive [place] sleep apnea [facility], OPID [facility] Psoriasis Resolved Problem 04/28/2018 [facility], OPID [facility] Retention of Active Problem 04/28/2018 needs [facility], urine<sup>1</balderas straight [place] p> cath every 6 Medical hrs or as Center, needed if OPID bladder is [place] distended Imaging Seizures Resolved Problem 04/28/2018 [facility], complicating [place] intracranial Medical hemorrhage Center, OPID [facility] Shingles Resolved Problem 04/28/2018 OP[facility], [facility] Skin at risk of Resolved Problem 04/28/2018 [facility] breakdown(<[facility] Medical ID="[id number]" [facility] >Improving</spa OPID n>) [facility] Stroke Active Problem 04/28/2018 [facility], OPID [facility] AF (<span Resolved Problem 03/11/2017 [place] ID="[id number] Medical ">Confirmed</sp [place], an>) [facility] Impaired Active Problem 03/11/2017 [facility] physical Medical mobility (<[facility], ID="[id number]" [facility] >Confirmed</spa n>) Skin at risk of Resolved Problem 03/11/2017 [facility] breakdown(<[facility] ID="[id number]" Center, >Improving</spa [facility] n>) SHORTNESS OF Active [facility] BREATH [facility] SLEEP APNEA NOS Active [facility] FOLLOW-UP EXAM Active [facility] NOS OBSTRUCTIVE Active [facility] SLEEP APNEA INTESTINAL Active [facility] OBSTRUCT NOS Medical [place] FACIAL WEAKNESS Active [facility] ROUTINE MEDICAL Active [facility] EXAM [facility] VOMITING ALONE Active [facility] NAUSEA WITH Active [facility] VOMITING [facility] SLEEP APNEA, Active [facility] UNSPECIFIED NAUSEA Active [facility] PULMONARY Active [facility] FIBROSIS, Medical UNSPECIFIED Center SHORTNESS OF Active [facility] BREATH [facility] OBSTRUCTIVE Active [facility] SLEEP APNEA (ADULT) (PEDIATR Medications Medication Details Route Status Patient Ordering Order Source Instructions Provider Date 24 HR Rotigotine
1 patch, Active [facility] 0.0417 MG/HR TOP, Daily, # 2017 Transdermal Patch 30 patch, 0 [Neupro] Refill(s) Hydralazine
75 mg, Active 03/08[facility] PO, QID, 0 2016 Refill(s) modafinil 100 mg oral
100 mg=1 Active 03/08[facility] tablet tab, PO, QAM, 2017 0 Refill(s) Buspar
1omg, Active 03/08[facility] PO, TID, 0 2016 Refill(s) Carbidopa 10 MG /
1 tab, Active 03/08[facility] Levodopa 100 MG Oral PO, TID, 0 2016 Tablet Refill(s) amLODIPine 5 mg oral
5 mg=1 Active 03/08[facility] tablet tab, PO, 2017 Daily, 0 Refill(s) Carbidopa 25 MG /
1 tab, Active 10/08[facility] Levodopa 250 MG Oral PO, TID, 0 2015 Medical Tablet [Sinemet Refill(s) [place] 25-250] Levofloxacin 750 MG
750 mg=1 Active 10/08[facility] Oral Tablet tab, PO, 2016 Medical [Levaquin] Daily, X 5 Center day, # 5 tab, 0 Refill(s) Mirtazapine
7.5 mg, No Longer [facility] 1 tab, Route: Active 2015 Medical PO, Drug Center form: TAB, Bedtime, Dosing Weight 66.636, kg, Start date: 10/06/16 21:00:00 STRATEGY ASSOCIATE, Duration: 30 day, Stop date: 11/04/16 21:00:00 STRATEGY ASSOCIATE
Notes : (Same as:Remeron) Proscar
5 mg, 1 No Longer [facility] tab, Route: Active 2015 Medical PO, Drug Center form: TAB, Daily, Start date: 10/06/16 10:00:00 STRATEGY ASSOCIATE, Duration: 30 day, Stop date: 11/05/16 9:00:00 STRATEGY ASSOCIATE
Notes : (Same as: Proscar) "Do Not Crush" Women of childbearing age should not touch or handle broken tablets Docusate
100 mg, No Longer [facility] 10 mL, Route: Active 2015 Medical PO, Drug Center form: LIQ, BID, Dosing Weight 66.636, kg, Start date: 10/06/16 9:00:00 STRATEGY ASSOCIATE, Stop date: 11/04/16 17:00:00 STRATEGY ASSOCIATE
Notes : (Same as: Colace) Miralax
17 gm, 1 No Longer [facility] pkt, Route: Active 2015 Medical PO, Drug Center form: PWDR, BID, Dosing Weight 66.636, kg, Start date: 10/06/16 9:00:00 STRATEGY ASSOCIATE, Duration: 30 day, Stop date: 11/04/16 17:00:00 STRATEGY ASSOCIATE
Notes : Dissolve in 8 oz of water or juice. (Same as: Miralax) Zofran
4 mg, 1 No Longer [facility] tab, Route: Active 2015 Medical PO, Drug Center form: TAB, QAM, Dosing Weight 66.636, kg, PRN Nausea, Start date: 10/06/16 7:35:00 STRATEGY ASSOCIATE, Duration: 30 day, Stop date: 11/05/16 7:34:00 STRATEGY ASSOCIATE
Notes : (Same as: Zofran) Miralax
17 gm, 1 No Longer [place] pkt, Route: Active 2015 Medical PO, Drug Center form: PWDR, QPM, Dosing Weight 66.636, kg, Start date: 10/05/16 17:00:00 STRATEGY ASSOCIATE, Duration: 30 day, Stop date: 11/03/16 17:00:00 STRATEGY ASSOCIATE
Notes : Dissolve in 8 oz of water or juice. (Same as: Miralax) molasses
240 mL, Inactive [place] Route: CA, 2015 Medical Drug Form: [place] SYRP, Dosing Weight 66.636, kg, ONCE, Milk of Molasses Enema, Start date: 10/05/16 13:20:00 STRATEGY ASSOCIATE, Duration: 1 doses or times, Stop date: 10/05/16 13:20:00 STRATEGY ASSOCIATE
Notes : (Same as:Molasses) Menthol 0.0044 MG/MG
1 appl, No Longer [place] / Zinc Oxide 0.2 Route: TOP, Active 2015 Medical MG/MG Topical TID, Drug Center Ointment form: OINT, [Calmoseptine PRN Diaper Ointment] Rash, Start date: 10/05/16 9:32:00 STRATEGY ASSOCIATE, Duration: 30 day, Stop date: 11/04/16 9:31:00 STRATEGY ASSOCIATE, Dosing
No conchis: (Same as: Calmoseptine) Culturelle HS
1 cap, No Longer [facility] Route: PO, Active 2015 Medical Drug Form: [place] CAP, Dosing Weight 66.636, kg, Daily, Start date: 10/05/16 9:00:00 STRATEGY ASSOCIATE, Duration: 30 day, Stop date: 11/03/16 9:00:00 STRATEGY ASSOCIATE
Notes : Same as [place] Benicar
20 mg, 1 No Longer [place] tab, Route: Active 2015 Medical PO, Drug Center form: TAB, Daily, Dosing Weight 66.636, kg, Start date: 10/05/16 9:00:00 STRATEGY ASSOCIATE, Duration: 30 day, Stop date: 11/03/16 9:00:00 STRATEGY ASSOCIATE Centrum Men's
1 tab, No Longer [place] Route: PO, Active 2015 Medical Drug Form: Center TAB, Dosing Weight 66.636, kg, Daily, Start date: 10/05/16 9:00:00 STRATEGY ASSOCIATE, Duration: 30 day, Stop date: 11/03/16 9:00:00 STRATEGY ASSOCIATE
Notes : (Same as:Thera-M, Theragran-M) WASTE: F/P - Black; E - Municipal Trash Bin Give with food. Vitamin B 12
1,000 No Longer [place] microgram, 1 Active 2015 Medical tab, Route: [place] PO, Drug form: TAB, Daily, Dosing Weight 66.636, kg, Start date: 10/05/16 9:00:00 STRATEGY ASSOCIATE, Duration: 30 day, Stop date: 11/03/16 9:00:00 STRATEGY ASSOCIATE
Notes : (Same As: Vitamin B-12) Detrol LA
4 mg, 1 No Longer [place] cap, Route: Active 2015 Medical PO, Drug Center form: CAP, Daily, Start date: 10/05/16 9:00:00 STRATEGY ASSOCIATE, Duration: 30 day, Stop date: 11/03/16 9:00:00 STRATEGY ASSOCIATE
Notes : Do Not Crush. (Same As: Detrol LA) Bystolic
5 mg, 1 No Longer [place] tab, Route: Active 2015 Medical PO, Drug Center form: TAB, Daily, Dosing Weight 66.636, kg, Start date: 10/05/16 9:00:00 STRATEGY ASSOCIATE, Duration: 30 day, Stop date: 11/03/16 9:00:00 STRATEGY ASSOCIATE
Notes : (same as: Bystolic) Finasteride
0.5 mg, No Longer [facility] 0.1 tab, Active 2015 Medical Route: PO, Center Drug form: TAB, Daily, Dosing Weight 66.636, kg, Start date: 10/05/16 9:00:00 STRATEGY ASSOCIATE, Duration: 30 day, Stop date: 11/03/16 9:00:00 STRATEGY ASSOCIATE
Notes : (Same as: Proscar) "Do Not Crush" Women of childbearing age should not touch or handle broken tablets Zofran
4 mg, 1 No Longer [place] tab, Route: Active 2015 Medical PO, Drug Center form: TAB, QAM, Dosing Weight 66.636, kg, Start date: 10/05/16 9:00:00 STRATEGY ASSOCIATE, Duration: 30 day, Stop date: 11/03/16 9:00:00 STRATEGY ASSOCIATE
Notes : (Same as: Zofran) VESICARE
10 mg, No Longer [place] Route: PO, Active 2015 Medical Drug form: Center TAB, Daily, Dosing Weight 66.636, kg, Start date: 10/05/16 9:00:00 STRATEGY ASSOCIATE, Duration: 30 day, Stop date: 11/03/16 9:00:00 STRATEGY ASSOCIATE Hydrochlorothiazide
12.5 mg, No Longer [place] 1 cap, Route: Active 2015 Medical PO, Drug Center form: CAP, Daily, Dosing Weight 66.636, kg, Start date: 10/05/16 9:00:00 STRATEGY ASSOCIATE, Duration: 30 day, Stop date: 11/03/16 9:00:00 STRATEGY ASSOCIATE
Notes : (Same as: Microzide) With food. Aspirin 325 MG Oral
325 mg, No Longer [place] Tablet 1 tab, Route: Active 2015 Medical PO, Drug Center form: TAB, Daily, Dosing Weight 66.636, kg, Start date: 10/05/16 9:00:00 STRATEGY ASSOCIATE, Duration: 30 day, Stop date: 11/03/16 9:00:00 STRATEGY ASSOCIATE
Notes : Take with food. pantoprazole
40 mg, 1 No Longer [place] tab, Route: Active 2015 Medical PO, Drug Center form: ECTAB, Before Breakfast, Dosing Weight 66.636, kg, Start date: 10/05/16 7:30:00 STRATEGY ASSOCIATE, Duration: 30 day, Stop date: 11/03/16 7:30:00 STRATEGY ASSOCIATE
Notes : Tablet should not be chewed or crushed. (Same as: Protonix) heparin
5,000 No Longer [place] unit, 1 mL, Active 2015 Medical Route: SUB-Q, Center Drug form: INJ, Q8H, Dosing Weight 66.636, kg, Start date: 10/05/16 0:00:00 STRATEGY ASSOCIATE, Duration: 30 day, Stop date: 11/03/16 16:00:00 STRATEGY ASSOCIATE
Notes : porcine heparin gabapentin 300 MG
300 mg, No Longer [facility] Oral Capsule 1 cap, Route: Active 2015 Medical [Neurontin] PO, Drug Center form: CAP, Bedtime, Dosing Weight 66.636, kg, Start date: 10/04/16 21:00:00 STRATEGY ASSOCIATE, Duration: 30 day, Stop date: 11/02/16 21:00:00 STRATEGY ASSOCIATE
Notes : (Same as: Neurontin) Mirtazapine
7.5 mg, No Longer [facility] 1 tab, Route: Active 2015 Medical PO, Drug Center form: TAB, Bedtime, Dosing Weight 66.636, kg, Start date: 10/04/16 21:00:00 STRATEGY ASSOCIATE, Duration: 30 day, Stop date: 11/02/16 21:00:00 STRATEGY ASSOCIATE
Notes : (Same as:Remeron) Flomax
0.4 mg, No Longer [facility] 1 cap, Route: Active 2015 Medical PO, Drug Center form: CAP, Bedtime, Dosing Weight 66.636, kg, Start date: 10/04/16 21:00:00 STRATEGY ASSOCIATE, Duration: 30 day, Stop date: 11/02/16 21:00:00 STRATEGY ASSOCIATE
Notes : (Same As: Flomax) "Do Not Crush" Phenytoin
400 mg, No Longer [facility] 4 cap, Route: Active 2015 Medical PO, Drug Center form: ERCAP, Bedtime, Dosing Weight 66.636, kg, Start date: 10/04/16 21:00:00 STRATEGY ASSOCIATE, Duration: 30 day, Stop date: 11/02/16 21:00:00 STRATEGY ASSOCIATE
Notes : (Same as: Dilantin) Do not open, crush, or chew. Metoclopramide 10 MG
10 mg, 1 No Longer [facility] Oral Tablet tab, Route: Active 2015 Medical PO, Drug Center form: TAB, QID-Before Meals, Dosing Weight 66.636, kg, Start date: 10/04/16 21:00:00 STRATEGY ASSOCIATE, Duration: 30 day, Stop date: 11/03/16 16:30:00 STRATEGY ASSOCIATE
Notes : (Same as: Reglan) Take 30 min before meals Carbidopa 25 MG /
1 tab, No Longer [facility] Levodopa 250 MG Oral Route: PO, Active 2016 Medical Tablet [Sinemet Drug Form: [place] 25-250] TAB, Dosing Weight 66.636, kg, TID, NOW, Start date: 10/04/16 20:43:00 STRATEGY ASSOCIATE, Stop date: 11/03/16 17:00:00 STRATEGY ASSOCIATE
Notes : Take with milk or food. (Same As: Sinemet) Lamictal
100 mg, No Longer [facility] 1 tab, Route: Active 2015 Medical PO, Drug Center form: TAB, BID, Dosing Weight 66.636, kg, Priority: NOW, Start date: 10/04/16 20:43:00 STRATEGY ASSOCIATE, Duration: 30 day, Stop date: 11/03/16 17:00:00 STRATEGY ASSOCIATE
Notes : (Same as:LaMICtal) Buspar
10 mg, 2 No Longer [facility] tab, Route: Active 2015 Medical PO, Drug Center form: TAB, BID, Dosing Weight 66.636, kg, Priority: NOW, Start date: 10/04/16 20:42:00 STRATEGY ASSOCIATE, Stop date: 11/03/16 17:00:00 STRATEGY ASSOCIATE
Notes : (Same As: BuSpar) Cetirizine
10 mg, 1 No Longer [facility] tab, Route: Active 2015 Medical PO, Drug Center form: TAB, Daily, Dosing Weight 66.636, kg, Start date: 10/04/16 19:00:00 STRATEGY ASSOCIATE, Duration: 30 day, Stop date: 11/03/16 9:00:00 STRATEGY ASSOCIATE
Notes : (Same As: Zyrtec) Rocephin
1 gm, No Longer [facility] Route: IVPB, Active 2015 Medical Drug form: Center PDR/INJ, [id number], Dosing Weight 66.636, kg, Start date: 10/04/16 18:00:00 STRATEGY ASSOCIATE, Duration: 30 day, Stop date: 11/02/16 18:00:00 STRATEGY ASSOCIATE
Notes : (Same As: Rocephin). Use with 100 mL NS and infuse over 30 min MEDICATION WASTE Product Size: 1000 mg Product Wasted: ___ mg Zithromax
250 mg, No Longer [facility] 1 tab, Route: Active 2016 Medical PO, Drug Center form: TAB, [id number], Dosing Weight 66.636, kg, Priority: NOW, Start date: 10/04/16 17:48:00 STRATEGY ASSOCIATE, Stop date: 11/02/16 17:48:00 STRATEGY ASSOCIATE
Notes : Take 1 hour before or 2 hours after meals. (Same As: Zithromax) Flonase 0.05 mg/inh
1 spray, No Longer [facility] nasal spray Route: NASAL, Active 2015 Medical Drug Form: [place] ISLAS, Dosing Weight 66.636, kg, Daily, NOW, Start date: 10/04/16 17:46:00 STRATEGY ASSOCIATE, Stop date: 11/03/16 17:46:00 STRATEGY ASSOCIATE
Notes : (Same as: Flonase) Charito
60 mg, Inactive [facility] Route: PO, 2016 Medical Daily, Dosing Center Weight 66.636, kg, Priority: NOW, Start date: 10/04/16 17:44:00 STRATEGY ASSOCIATE, Stop date: 11/03/16 17:44:00 STRATEGY ASSOCIATE Docusate Sodium 100
100 mg, No Longer [facility] MG Oral Capsule 1 cap, Route: Active 2015 Medical [Colace] PO, Drug Center form: CAP, BID, Dosing Weight 66.636, kg, PRN Constipation, Start date: 10/04/16 17:11:00 STRATEGY ASSOCIATE, Duration: 30 day, Stop date: 11/03/16 17:10:00 STRATEGY ASSOCIATE
Notes : (Same as: Colace) (Do Not Crush) Melatonin
3 mg, 1 No Longer [facility] tab, Route: Active 2016 Medical PO, Drug Center form: TAB, Bedtime, Dosing Weight 66.636, kg, PRN Insomnia, Start date: 10/04/16 17:08:00 STRATEGY ASSOCIATE, Duration: 30 day, Stop date: 11/03/16 17:07:00 STRATEGY ASSOCIATE
Notes : (Same as: Melatonin) 24 HR Nifedipine 90
90 mg, 1 No Longer [place] MG Extended Release tab, Route: Active 2015 Medical Tablet PO, Drug Center form: ERTAB, Lunch, Dosing Weight 66.636, kg, Priority: NOW, Start date: 10/04/16 17:06:00 STRATEGY ASSOCIATE, Duration: 30 day, Stop date: 11/03/16 12:00:00 STRATEGY ASSOCIATE
Notes : (Same as:Adalat CC, Procardia XL) Give on empty stomach. Take 1 hour before or 2 hours after meal; "Avoid grapefruit and grapefruit juice". Do not crush Carbidopa 25 MG /
2 tab, No Longer [place] Levodopa 250 MG Oral PO, TID, 0 Active 2015 Medical Tablet [Sinemet Refill(s) Center 25-250] Ondansetron 4 MG Oral
4 mg=1 Active [place] Tablet [Zofran] tab, PO, QAM, 2016 Medical 6AM, 0 Center Refill(s) metoclopramide 10 mg
10 mg=1 Active [place] oral tablet, tab, PO, 2016 Medical disintegrating QID-Before Center Meals, 0 Refill(s) Hydralazine
50 mg=1 No Longer [place] Hydrochloride 50 MG tab, PO, QID, Active 2015 Medical Oral Tablet # 360 tab, 0 Center Refill(s) Lactated Ringers
1,000 No Longer [place] 1,000 mL mL, Rate: 75 Active 2015 Medical ml/hr, Infuse Center over: 13.3 hr, Route: IV, Dosing Weight 66.636 kg, Total Volume: 1,000, Start date: 10/04/16 15:09:00 STRATEGY ASSOCIATE, Duration: 30 day, Stop date: 11/03/16 15:08:00 STRATEGY ASSOCIATE Zofran
4 mg, 2 No Longer [place] mL, Route: Active 2015 Medical IVP, Drug Center form: INJ, Q8H, Dosing Weight 66.818, kg, PRN Nausea, Priority: NOW, Start date: 10/04/16 11:59:00 STRATEGY ASSOCIATE, Duration: 30 day, Stop date: 11/03/16 11:58:00 STRATEGY ASSOCIATE
No conchis: (Same as: Zofran) MEDICATION WASTE Product Size: 4 mg Product Wasted: ___ mg Sodium Chloride 0.154
500 mL, Inactive [place] MEQ/ML Injectable 500 ml/hr, 2015 Medical Solution Infuse Over: Center 1 hr, Route: IV, 500, Drug form: INJ, ONCE, Priority: STAT, Dosing Weight 66.818 kg, Start date: 10/04/16 11:07:00 STRATEGY ASSOCIATE, Duration: 1 doses or times, Stop date: 10/04/16 11:07:00 STRATEGY ASSOCIATE Saline Flush 0.9%
10 mL, No Longer [place] Route: MISC, Active 2015 Medical Drug Form: Center INJ, Dosing Weight 66.818, kg, PRN, PRN Line Flush, Start date: 10/04/16 8:25:00 STRATEGY ASSOCIATE, Duration: 30 day, Stop date: 11/03/16 8:24:00 STRATEGY ASSOCIATE
Notes : (Same as: BD Posiflush) Flonase 0.05 mg/inh
1 spray, Active [facility] nasal spray NASAL, Daily, 2015 0 Refill(s) Charito
=1 tab, Active [facility] PO, Daily, 0 2015 Refill(s) pantoprazole 40 mg
40 mg=1 Active [facility] oral enteric coated tab, PO, 2014 Medical tablet Before Center Breakfast, # 30 tab, 0 Refill(s) Ciprofloxacin 500 MG
500 mg=1 Active [facility] Oral Tablet [Cipro] tab, PO, 2014 Medical Q12H, end Center date 08/28, X 7 day, # 14 tab, 0 Refill(s)<br/ >Special Instructions: end date 08/28 Ondansetron 4 MG Oral
4 mg=1 Active [place] Tablet [Zofran] tab, PO, Q6H, 2014 Medical PRN as needed Center for nausea/vomiti ng, take 15-30 mins before meals especially lunch for nausea, X 7 day, # 28 tab, 0 Refill(s)<br/ >Special Instructions: take 15-30 mins before meals especially lunch for nausea Hydralazine
100 mg=2 Active [place] Hydrochloride 50 MG tab, PO, Q8H, 2014 Medical Oral Tablet # 180 tab, 0 Center Refill(s) gabapentin 300 MG
300 mg=1 Active [place] Oral Capsule cap, PO, 2014 Medical [Neurontin] Bedtime, 0 Center Refill(s) polyethylene glycol
17 gm, Active [place] 3350 oral powder for PO, Daily, 2015 Medical reconstitution give 1-2 Center times daily for one soft bowel mvmt per day. Hold if diarrhea. dissolve in water or juice, X 7 day, # 255 gm, 0 Refill(s)<br/ >Special Instructions: give 1-2 times daily for one soft bowel mvmt per day. Hold if diarrhea. dissolve in water or juice pantoprazole
40 mg, 1 Inactive [place] tab, Route: 2014 Medical PO, Drug Center form: ECTAB, Before Breakfast, Dosing Weight 65.727, kg, Start date: 08/22/15 7:30:00, Duration: 30 day, Stop date: 09/20/15 7:30:00
N otes: Tablet should not be chewed or crushed. (Same as: Protonix) Hydralazine
100 mg, No Longer [place] 2 tab, Route: Active 2014 Medical PO, Drug Center form: TAB, Q8H, Dosing Weight 65.909, kg, Start date: 08/21/15 16:00:00, Duration: 30 day, Stop date: 09/20/15 8:00:00
N otes: (Same as: Apresoline) May interfere w/enteral feedings Take With Food influenza virus
0.5 mL, Inactive [facility] vaccine, inactivated Route: IM, 2014 Medical Drug Form: [place] SUSP, Daily, Start date: 08/21/15 9:00:00, Duration: 1 doses or times, Stop date: 08/21/15 9:00:00
N otes: (Same as: Fluzone Quadrivalent) For 3 years of age and older (0.5 mL IM) Shake well before use calcipotriene 0.63832
1 appl, Inactive [facility] MG/MG Topical Route: TOP, 2014 Medical Ointment [Calcitrene] Drug Form: [place] OINT, Dosing Weight 65.727, kg, QID, Start date: 08/21/15 9:00:00, Duration: 30 day, Stop date: 09/19/15 21:00:00
Notes: (Same As: Dovonex) Miralax
17 gm, 1 No Longer [facility] pkt, Route: Active 2014 Medical PO, Drug Center form: PWDR, BID, Dosing Weight 65.727, kg, Start date: 08/21/15 9:00:00, Duration: 30 day, Stop date: 09/19/15 17:00:00
Notes: Dissolve in 8 oz of water or juice. (Same as: Miralax) Hydralazine
10 mg, No Longer [facility] 0.5 mL, Active 2014 Medical Route: IVP, [place] Drug form: INJ, Q6H, Dosing Weight 65.727, kg, PRN Other -See Comment, Start date: 08/21/15 7:03:00, Duration: 30 day, Stop date: 09/20/15 7:02:00, SBP > 180 or DBP > 110
Notes : (Same as: Apresoline) Push over 5 minutes Ciprofloxacin
500 mg, No Longer [facility] 1 tab, Route: Active 2014 Medical PO, Drug Center form: TAB, [id number], Dosing Weight 65.727, kg, Start date: 08/21/15 7:00:00, Duration: 30 day, Stop date: 09/19/15 19:00:00
Notes: May interfere w/enteral feedings - Take 1 hr before or 2 hrs after antacids, dairy pdt & minerals. On empty stomach. Zofran
4 mg, 2 No Longer [place] mL, Route: Active 2014 Medical IV, Drug Center form: INJ, Q6H, Dosing Weight 65.727, kg, PRN Nausea, Start date: 08/21/15 6:58:00, Duration: 30 day, Stop date: 09/20/15 6:57:00
N otes: (Same as: Zofran) MEDICATION WASTE Product Size: 4 mg Product Wasted: ___ mg potassium chloride
40 mEq, Inactive [facility] 2 tab, Route: 2014 Medical PO, Drug Center form: ERTAB, ONCE, Dosing Weight 65.727, kg, Start date: 08/21/15 6:56:00, Stop date: 08/21/15 6:56:00
N otes: (Same as: K-Dur 20) "Do Not Crush" With food and full glass of water remove patch
1 patch, No Longer [facility] Route: TOP, Active 2014 Medical Drug form: Center ERFILM, QWed, Start date: 08/20/15 21:00:00, Duration: 30 day, Stop date: 09/17/15 21:00:00
Notes: Remove old patch before application of new patch. Flomax
0.4 mg, No Longer [facility] 1 cap, Route: Active 2014 Medical PO, Drug Center form: CAP, Bedtime, Dosing Weight 65.909, kg, Start date: 08/20/15 21:00:00, Duration: 30 day, Stop date: 09/18/15 21:00:00
Notes: (Same As: Flomax) "Do Not Crush" Phenytoin
400 mg, No Longer [facility] 4 cap, Route: Active 2014 Medical PO, Drug Center form: ERCAP, Bedtime, Dosing Weight 65.909, kg, Start date: 08/20/15 21:00:00, Duration: 30 day, Stop date: 09/18/15 21:00:00
Notes: (Same as: Dilantin) Do not open, crush, or chew. Mirtazapine
7.5 mg, No Longer [place] 0.5 tab, Active 2014 Medical Route: PO, Center Drug form: TAB, Bedtime, Dosing Weight 65.909, kg, Start date: 08/20/15 21:00:00, Duration: 30 day, Stop date: 09/18/15 21:00:00
Notes: (Same as:Remeron) gabapentin 300 MG
300 mg, No Longer [place] Oral Capsule 1 cap, Route: Active 2014 Medical [Neurontin] PO, Drug Center form: CAP, Bedtime, Dosing Weight 65.909, kg, Start date: 08/20/15 21:00:00, Duration: 30 day, Stop date: 09/18/15 21:00:00
Notes: (Same as: Neurontin) 24 HR Nifedipine 90
90 mg, 1 No Longer [facility] MG Extended Release tab, Route: Active 2014 Medical Tablet PO, Drug Center form: ERTAB, Lunch, Dosing Weight 65.909, kg, Start date: 08/20/15 12:00:00, Duration: 30 day, Stop date: 09/18/15 12:00:00
Notes: (Same as:Adalat CC, Procardia XL) Give on empty stomach. Take 1 hour before or 2 hours after meal; "Avoid grapefruit and grapefruit juice". Do not crush Carbidopa 25 MG /
1 tab, No Longer [facility] Levodopa 100 MG Oral Route: PO, Active 2014 Medical Tablet [Sinemet Drug Form: [place] 25-100] TAB, Dosing Weight 65.909, kg, TID, Start date: 08/20/15 9:00:00, Duration: 30 day, Stop date: 09/18/15 17:00:00
Notes: Take with milk or food. (Same As: Sinemet) calcipotriene 0.05
1 appl, No Longer [facility] MG/ML Topical Cream Route: TOP, Active 2014 Medical BID, Drug Center form: CRM, Start date: 08/20/15 9:00:00, Duration: 30 day, Stop date: 09/18/15 17:00:00
Notes: (Same As: Dovonex) Buspar
10 mg, 2 No Longer [facility] tab, Route: Active 2014 Medical PO, Drug Center form: TAB, Daily, Dosing Weight 65.909, kg, Start date: 08/20/15 9:00:00, Duration: 30 day, Stop date: 09/18/15 9:00:00
N otes: (Same As: BuSpar) Aspirin 325 MG Oral
325 mg, No Longer [facility] Tablet 1 tab, Route: Active 2014 Medical PO, Drug Center form: TAB, Daily, Dosing Weight 65.909, kg, Start date: 08/20/15 9:00:00, Duration: 30 day, Stop date: 09/18/15 9:00:00
N otes: Take with food. Seroquel
25 mg, 1 No Longer [facility] tab, Route: Active 2014 Medical PO, Drug Center form: TAB, Every Other Day, Dosing Weight 65.909, kg, Start date: 08/20/15 9:00:00, Duration: 30 day, Stop date: 09/17/15 9:00:00
N otes: (Same as: SEROquel) Bystolic
5 mg, 1 No Longer [facility] tab, Route: Active 2014 Medical PO, Drug Center form: TAB, Daily, Dosing Weight 65.909, kg, Start date: 08/20/15 9:00:00, Duration: 30 day, Stop date: 09/18/15 9:00:00
N otes: (same as: Bystolic) Lamictal
100 mg, No Longer [facility] 1 tab, Route: Active 2014 Medical PO, Drug Center form: TAB, BID, Dosing Weight 65.909, kg, Start date: 08/20/15 9:00:00, Duration: 30 day, Stop date: 09/18/15 17:00:00
Notes: (Same as:LaMICtal) Hydrochlorothiazide
12.5 mg, No Longer [facility] 1 cap, Route: Active 2014 Medical PO, Drug Center form: CAP, Daily, Dosing Weight 65.909, kg, Start date: 08/20/15 9:00:00, Duration: 30 day, Stop date: 09/18/15 9:00:00
N otes: (Same as: Microzide) With food. Finasteride
5 mg, 1 No Longer [facility] tab, Route: Active 2014 Medical PO, Drug Center form: TAB, Daily, Dosing Weight 65.909, kg, Start date: 08/20/15 9:00:00, Duration: 30 day, Stop date: 09/18/15 9:00:00
N otes: (Same as: Proscar) "Do Not Crush" Women of childbearing age should not touch or handle broken tablets heparin
5,000 No Longer [place] unit, 1 mL, Active 2014 Medical Route: SUB-Q, [place] Drug form: INJ, Q8H, Dosing Weight 65.727, kg, Start date: 08/20/15 8:00:00, Duration: 30 day, Stop date: 09/19/15 0:00:00
N otes: porcine heparin Hydralazine
50 mg, 1 No Longer [facility] tab, Route: Active 2014 Medical PO, Drug Center form: TAB, Q6H, Dosing Weight 65.909, kg, Start date: 08/20/15 0:00:00, Duration: 30 day, Stop date: 09/18/15 18:00:00
Notes: (Same as: Apresoline) May interfere w/enteral feedings Take With Food 168 HR Clonidine
1 patch, No Longer [facility] 0.0125 MG/HR Route: TOP, Active 2014 Medical Transdermal Patch Drug Form: Center ERFILM, Dosing Weight 65.909, kg, Q7D, Start date: 08/19/15 23:51:00, Duration: 30 day, Stop date: 09/09/15 21:00:00
Notes: Patch delivers 0.3 mg/24 hours; Catapres-TTS- 3. Cipro
200 mg, No Longer [place] 100 mL, Active 2014 Medical Route: IVPB, Center Drug form: INJ, [id number], Dosing Weight 65.909, kg, Start date: 08/19/15 23:00:00, Stop date: 09/18/15 11:00:00 Saline Flush 0.9%
10 ml, No Longer [place] Route: IVP, Active 2014 Medical Drug Form: Center INJ, Dosing Weight 65.909, kg, PRN, PRN Line Flush, Start date: 08/19/15 21:19:00, Duration: 30 day, Stop date: 09/18/15 21:18:00
Notes: (Same as: BD Posiflush) Acetaminophen
650 mg, No Longer [facility] 2 tab, Route: Active 2014 Medical PO, Drug Center form: TAB, Q4H, Dosing Weight 65.909, kg, PRN Pain 1-3/Temp > 100.4 F, Start date: 08/19/15 21:19:00, Duration: 30 day, Stop date: 09/18/15 21:18:00<br/& gt;Notes: Do not exceed 4 gm/day. (Same as: Tylenol) Acetaminophen 325 MG
1 tab, No Longer [place] / Hydrocodone Route: PO, Active 2014 Medical Bitartrate 5 MG Oral Drug Form: Center Tablet TAB, Dosing Weight 65.909, kg, Q4H, PRN Pain Score 4-6, Start date: 08/19/15 21:19:00, Duration: 30 day, Stop date: 09/18/15 21:18:00
Notes: (Same as: [place] 325/5) Do not exceed 4gm/day of acetaminophen . Morphine
1 mg, No Longer [place] 0.5 mL, Active 2014 Medical Route: IVP, Center Drug form: INJ, Q4H, Dosing Weight 65.909, kg, PRN Pain Score 7-10, Start date: 08/19/15 21:19:00, Duration: 30 day, Stop date: 09/18/15 21:18:00
Notes: (Same as:MORPhine Sulfate) Sodium Chloride 0.154
1,000 No Longer [facility] MEQ/ML Injectable mL, Rate: 75 Active 2014 Medical Solution ml/hr, Infuse Center over: 13.3 hr, Route: IV, Dosing Weight 65.909 kg, Total Volume: 1,000, Start date: 08/19/15 21:19:00, Duration: 30 day, Stop date: 09/18/15 21:18:00 Cipro
400 mg, Inactive [facility] 200 mL, [facility], ONCE, Dosing Weight 65.909, kg, Priority: STAT, Start date: 08/17/15 18:32:00, Stop date: 08/17/15 18:32:00
Notes: Do not refrigerate Promethazine
25 mg=1 Active [facility] Hydrochloride 25 MG supp, CA, 2014 Medical Rectal Suppository Q8H, # 30 Center [Phenergan] supp, 0 Refill(s) Ciprofloxacin 500 MG
500 mg=1 Active [facility] Oral Tablet [Cipro] tab, PO, 2014 Medical Q12H, X 14 [place] day, # 28 tab, 0 Refill(s) Ceftriaxone
1 gm, Inactive [facility] Route: IVPB2014 Medical Drug form: [place] PDR/INJ, ONCE, Dosing Weight 65.909, kg, Priority: STAT, Start date: 08/17/15 14:42:00, Stop date: 08/17/15 14:42:00
Notes: (Same As: Rocephin). Use with 100ml NS mini-bag PLUS and infuse over 30 min MEDICATION WASTE Product Size: 1000 mg Product Wasted: ___ mg Iohexol
86 mL, Inactive [facility] Route: IVP, 2014 Medical Drug Form: [place] SOLN, Dosing Weight 65.909, kg, ONCALL, STAT, Start date: 08/17/15 12:29:00, Duration: 1 doses or times, Stop date: 08/17/15 21:00:00, Dose=2.2ml/kg , Max qdca=112uc -- "To be infused by Radiology Staff ONLY"
Spe cial Instructions: Dose=2.2ml/kg , Max mlth=250el -- "To be infused by Radiology Staff ONLY"
Not es: (same as:Omnipaque 350). Sodium Chloride 0.154
1,000 Inactive [place] MEQ/ML Injectable mL, 1000 2014 Medical Solution ml/hr, Infuse Center Over: 1 hr, Route: IV, 1,000, Drug form: INJ, ONCE, Priority: STAT, Dosing Weight 65.909 kg, Start date: 08/17/15 11:56:00, Duration: 1 doses or times, Stop date: 08/17/15 11:56:00 Saline Flush 0.9%
10 mL, Inactive [place] Route: [facility] [place] [place], 2014 Medical Drug Form: Center INJ, Dosing Weight 65.909, kg, PRN, PRN Line Flush, Start date: 08/17/15 11:56:00, Duration: 30 day, Stop date: 09/16/15 11:55:00
Notes: (Same as: BD Posiflush) Morphine
4 mg, 1 Inactive [facility] mL, Route: 2014 Medical IVP, Drug Center form: INJ, ONCE, Dosing Weight 65.909, kg, Priority: STAT, Start date: 08/17/15 11:56:00, Stop date: 08/17/15 11:56:00
Notes: (Same as:MORPhine Sulfate) Ondansetron
4 mg, 2 Inactive [facility] mL, Route: 2014 Medical IVP, Drug Center form: INJ, ONCE, Dosing Weight 65.909, kg, Priority: STAT, Start date: 08/17/15 11:56:00, Stop date: 08/17/15 11:56:00
Notes: (Same as: Leonid) MEDICATION WASTE Product Size: 4 mg Product Wasted: ___ mg 168 HR Clonidine
1 patch, Active [place] 0.0125 MG/HR TOP, Q7D, # 4 2014 Medical Transdermal Patch patch, 0 Center Refill(s) finasteride 5 mg oral
5 mg=1 Active [place] tablet tab, PO, 2014 Medical Daily, # 30 Center tab, 0 Refill(s) Neutra-Phos
2 pkt, No Longer [place] Route: PO, Active 2014 Medical Drug Form: [place] PDR/REC, Dosing Weight 30.909, kg, Daily, Start date: 08/12/15 9:00:00, Duration: 30 day, Stop date: 09/10/15 9:00:00
N otes: (Same as: Neutra-Phos) Each 1.25 gm pkt has 250mg phosphorous. Mix w/2.5oz water and stir. Nystatin 100 UNT/MG
1 appl, No Longer [place] Topical Powder Route: [facility], Active 2014 Medical TID, Drug Center form: PWDR, Start date: 08/11/15 13:00:00, Duration: 30 day, Stop date: 09/10/15 9:00:00
N otes: (Same as:Mycostatin , Nilstat) For external use only. Phenytoin
400 mg, No Longer [place] 4 cap, Route: Active 2014 Medical PO, Drug Center form: ERCAP, Bedtime, Dosing Weight 30.909, kg, Start date: 08/10/15 21:00:00, Duration: 30 day, Stop date: 09/08/15 21:00:00
Notes: (Same as: Dilantin) Do not open, crush, or chew. remove patch
1 patch, No Longer [place] Route: TOP, Active 2014 Medical Drug form: [place] ERFILM, Q7D, Start date: 08/10/15 9:00:00, Duration: 30 day, Stop date: 09/07/15 9:00:00
N otes: Remove old patch before application of new patch. Dilantin
200 mg, Inactive [facility] 2 cap, Route: 2014 Medical PO, Drug Center form: ERCAP, ONCE, Start date: 08/09/15 21:00:00, Stop date: 08/09/15 21:00:00
Notes: (Same as: Dilantin) Do not open, crush, or chew. Oyster-D
1 tab, No Longer [facility] Route: PO, Active 2014 Medical Drug Form: Center TAB, BID, Start date: 08/09/15 9:30:00, Duration: 30 day, Stop date: 09/08/15 9:00:00
N otes: (calcium carbonate-vit D 500mg-400unit TAB) Same as: Oyster-D, OsCal-D lactobacillus
1 cap, No Longer [place] rhamnosus GG Route: PO, Active 2014 Medical Drug Form: Center CAP, BID, Start date: 08/09/15 9:30:00, Duration: 30 day, Stop date: 09/08/15 9:00:00
N otes: Same as Culturelle phenytoin 100 mg oral
400 mg=4 Active [place] capsule, extended cap, PO, 2014 Medical release Bedtime, 0 Center Refill(s) Benicar
20 mg, No Longer [facility] Route: PO, Active 2014 Medical Drug form: Center TAB, Daily, Dosing Weight 30.909, kg, Start date: 08/09/15 9:00:00, Duration: 30 day, Stop date: 09/07/15 9:00:00 Hydrochlorothiazide
12.5 mg, No Longer [facility] 1 cap, Route: Active 2014 Medical PO, Drug Center form: CAP, Daily, Dosing Weight 30.909, kg, Start date: 08/09/15 9:00:00, Duration: 30 day, Stop date: 09/07/15 9:00:00
N otes: (Same as: Microzide) With food. Buspar
10 mg, 1 No Longer [facility] tab, Route: Active 2014 Medical PO, Drug Center form: TAB, Daily, Dosing Weight 30.909, kg, Start date: 08/09/15 9:00:00, Duration: 30 day, Stop date: 09/07/15 9:00:00
N otes: (Same As: BuSpar) Aspirin 325 MG Oral
325 mg, No Longer [place] Tablet 1 tab, Route: Active 2014 Medical PO, Drug Center form: TAB, Daily, Dosing Weight 30.909, kg, Start date: 08/09/15 9:00:00, Duration: 30 day, Stop date: 09/07/15 9:00:00
N otes: Take with food. Menthol 0.0044 MG/MG
1 appl, No Longer [place] / Zinc Oxide 0.2 Route: TOP, Active 2014 Medical MG/MG Topical TID, Drug Center Ointment form: OINT, [Calmoseptine Start date: Ointment] 08/09/15 9:00:00, Duration: 30 day, Stop date: 09/07/15 17:00:00
Notes: (Same as: Calmoseptine) lactobacillus
1 tab, Inactive [place] acidophilus and Route: CHEW, 2014 Medical [place] Drug Form: [place] CHEWTAB, Dosing Weight 30.909, kg, TID, Start date: 08/09/15 9:00:00, Duration: 30 day, Stop date: 09/07/15 17:00:00 Calcium Carbonate
1 tab, Inactive [place] 1500 MG / Route: PO, 2014 Medical Cholecalciferol 400 Dosing Weight Center UNT Oral Tablet 30.909, kg, BID, Start date: 08/09/15 9:00:00, Duration: 30 day, Stop date: 09/07/15 17:00:00 Potassium Chloride
40 mEq, Inactive [place] 1.33 MEQ/ML Oral 30 mL, Route: 2015 Medical Solution PO, Drug Center form: LIQ, ONCE, Dosing Weight 30.909, kg, Start date: 08/09/15 8:49:00, Stop date: 08/09/15 8:49:00
N otes: (Same as: Potassium Chloride) sodium phosphate +
30 mmol, Inactive [place] Sodium Chloride 0.9% 10 mL, Route: 2014 Medical IV 250 mL IVPB, ONCE, Center Dosing Weight 30.909, kg, Start date: 08/09/15 8:01:00, Stop date: 08/09/15 8:01:00 Mirtazapine
7.5 mg, No Longer [place] 0.5 tab, Active 2014 Medical Route: PO, Center Drug form: TAB, Bedtime, Dosing Weight 30.909, kg, Start date: 08/08/15 21:00:00, Duration: 30 day, Stop date: 09/06/15 21:00:00
Notes: (Same as:Remeron) Phenytoin
100 mg, No Longer [place] 1 cap, Route: Active 2014 [facility] PO, Drug Center form: ERCAP, QID, Dosing Weight 30.909, kg, Start date: 08/08/15 17:00:00, Duration: 30 day, Stop date: 09/07/15 13:00:00
Notes: (Same as: Dilantin) Do not open, crush, or chew. Benicar
20 mg, 1 No Longer [place] tab, Route: Active 2014 Medical PO, Drug Center form: TAB, Daily, Dosing Weight 30.909, kg, Start date: 08/08/15 17:00:00, Duration: 30 day, Stop date: 09/07/15 9:00:00 Neutra-Phos
2 pkt, No Longer [facility] Route: PO, Active 2014 Medical Drug Form: Center PDR/REC, Dosing Weight 30.909, kg, TID-Meals, Start date: 08/08/15 17:00:00, Duration: 30 day, Stop date: 09/07/15 12:00:00
Notes: (Same as: Neutra-Phos) Each 1.25 gm pkt has 250mg phosphorous. Mix w/2.5oz water and stir. Hydralazine
50 mg, 1 No Longer [place] tab, Route: Active 2014 Medical PO, Drug Center form: TAB, Q6H, Dosing Weight 30.909, kg, Start date: 08/08/15 13:00:00, Duration: 30 day, Stop date: 09/07/15 12:00:00
Notes: (Same as: Apresoline) May interfere w/enteral feedings Take With Food Potassium Chloride
40 mEq, Inactive [place] 1.33 MEQ/ML Oral 30 mL, Route: 2014 Medical Solution PO, Drug Center form: LIQ, ONCE, Dosing Weight 30.909, kg, Start date: 08/08/15 12:44:00, Stop date: 08/08/15 12:44:00
Notes: (Same as: Potassium Chloride) Neutra-Phos
1 pkt, Inactive [place] Route: PO, 2014 Medical Drug Form: [place] PDR/REC, Dosing Weight 30.909, kg, Q4H, Start date: 08/08/15 8:00:00, Duration: 3 doses or times, Stop date: 08/08/15 16:00:00
Notes: (Same as: Neutra-Phos) Each 1.25 gm pkt has 250mg phosphorous. Mix w/2.5oz water and stir. quetiapine 25 MG Oral
25 mg=1 Active [place] Tablet [Seroquel] tab, PO, 2014 Medical Every Other Center Day Neutra-Phos
1 pkt, No Longer [place] Route: PO, Active 2014 Medical Drug Form: [place] PDR/REC, Dosing Weight 30.909, kg, TID-Before Meals, Start date: 08/07/15 11:30:00, Duration: 2 day, Stop date: 08/09/15 7:30:00
N otes: (Same as: Neutra-Phos) Each 1.25 gm pkt has 250mg phosphorous. Mix w/2.5oz water and stir. enalapril
5 mg, 1 No Longer [place] tab, Route: Active 2014 Medical PO, Drug Center form: TAB, Daily, Dosing Weight 30.909, kg, Start date: 08/07/15 9:00:00, Duration: 30 day, Stop date: 09/05/15 9:00:00
N otes: (Same as: Vasotec) Dilantin
100 mg, No Longer [place] 1 cap, Route: Active 2014 Medical PO, Drug Center form: ERCAP, TID, Dosing Weight 30.909, kg, Start date: 08/07/15 9:00:00, Duration: 30 day, Stop date: 09/05/15 17:00:00
Notes: (Same as: Dilantin) Do not open, crush, or chew. Finasteride
5 mg, 1 No Longer [place] tab, Route: Active 2014 Medical PO, Drug Center form: TAB, Daily, Dosing Weight 30.909, kg, Start date: 08/07/15 9:00:00, Duration: 30 day, Stop date: 09/05/15 9:00:00
N otes: (Same as: Proscar) "Do Not Crush" Women of childbearing age should not touch or handle broken tablets 24 HR Nifedipine 90
90 mg, 1 No Longer [place] MG Extended Release tab, Route: Active 2014 Medical Tablet PO, Drug Center form: ERTAB, Daily, Dosing Weight 30.909, kg, Start date: 08/07/15 9:00:00, Duration: 30 day, Stop date: 09/05/15 9:00:00
N otes: (Same as:Adalat CC, Procardia XL) Give on empty stomach. Take 1 hour before or 2 hours after meal; "Avoid grapefruit and grapefruit juice". Do not crush Carbidopa 25 MG /
1 tab, No Longer [place] Levodopa 100 MG Oral Route: PO, Active 2014 Medical Tablet [Sinemet Drug Form: Center 25-100] TAB, Dosing Weight 30.909, kg, TID, Start date: 08/07/15 9:00:00, Duration: 30 day, Stop date: 09/05/15 17:00:00
Notes: Take with milk or food. (Same As: Sinemet) Lamictal
100 mg, No Longer [place] 1 tab, Route: Active 2014 Medical PO, Drug Center form: TAB, BID, Dosing Weight 30.909, kg, Start date: 08/07/15 9:00:00, Duration: 30 day, Stop date: 09/05/15 17:00:00
Notes: (Same as:LaMICtal) tamsulosin
0.8 mg, No Longer [place] 2 cap, Route: Active 2014 Medical PO, Drug Center form: CAP, After Breakfast, Dosing Weight 30.909, kg, Start date: 08/07/15 8:30:00, Duration: 30 day, Stop date: 09/05/15 8:30:00
N otes: (Same As: Flomax) "Do Not Crush" Potassium Chloride
20 mEq, Inactive [place] 1.33 MEQ/ML Oral 15 mL, Route: 2014 Medical Solution PO, Drug Center form: LIQ, ONCE, Dosing Weight 30.909, kg, Start date: 08/07/15 7:34:00, Stop date: 08/07/15 7:34:00 sodium phosphate +
15 mmol, Inactive [place] Sodium Chloride 0.9% 5 mL, Route: 2014 Medical IV 250 mL IVPB, ONCE, Center Dosing Weight 30.909, kg, Start date: 08/07/15 7:32:00, Stop date: 08/07/15 7:32:00 Neutra-Phos
1 pkt, Inactive [facility] Route: PO, 2014 Medical Drug Form: Center PDR/REC, Dosing Weight 30.909, kg, Q4Hnow, Start date: 08/07/15 7:00:00, Duration: 4 doses or times, Stop date: 08/07/15 19:00:00
Notes: (Same as: Neutra-Phos) Each 1.25 gm pkt has 250mg phosphorous. Mix w/2.5oz water and stir. potassium chloride
40 mEq, Inactive [place] 2 tab, Route: 2014 Medical PO, Drug Center form: ERTAB, ONCE, Dosing Weight 30.909, kg, Start date: 08/07/15 6:28:00, Stop date: 08/07/15 6:28:00
N otes: (Same as: K-Dur 20) "Do Not Crush" With food and full glass of water Bystolic
5 mg, 1 No Longer [place] tab, Route: Active 2014 Medical PO, Drug Center form: TAB, Daily, Dosing Weight 30.909, kg, Start date: 08/06/15 15:30:00, Duration: 30 day, Stop date: 09/05/15 9:00:00
N otes: (same as: Bystolic) Magnesium Sulfate
2 gm, 50 Inactive [place] mL, Route: 2014 Medical IVPB, Drug Center form: INJ, Q2H, Dosing Weight 30.909, kg, Total dose=4 gm, Start date: 08/06/15 10:00:00, Duration: 2 doses or times, Stop date: 08/06/15 12:00:00 heparin
5,000 No Longer [place] unit, 1 mL, Active 2014 Medical Route: SUB-Q, Center Drug form: INJ, Q8H, Dosing Weight 30.909, kg, Start date: 08/06/15 0:00:00, Duration: 30 day, Stop date: 09/04/15 16:00:00
Notes: porcine heparin potassium chloride
10 mEq, Inactive [place] 50 mL, Route: 2014 [facility] IVPB, Drug Center form: INJ, Q1H, Dosing Weight 30.909, kg, Total Dose=40 meq, Start date: 08/04/15 20:00:00, Duration: 4 doses or times, Stop date: 08/04/15 23:00:00, Peripheral Line
S pecial Instructions: Peripheral Line
N otes: (Same as: KCL) Infuse over 2 hours. potassium phosphate +
30 mmol, Inactive [place] Sodium Chloride 0.9% 10 mL, Route: 2014 Medical IV 250 mL IVPB, ONCE, Center Dosing Weight 30.909, kg, Start date: 08/04/15 19:21:00, Stop date: 08/04/15 19:21:00
Notes: (Same as: K Phosphate.) 1 mMol phoshate has 1.47 mEq potassium Infuse over 4 hours Plasma[employer]te A PH-7.4
1,000 No Longer [place] 1,000 mL mL, Rate: 100 Active 2014 Medical ml/hr, Infuse Center over: 10 hr, Route: IV, Dosing Weight 30.909 kg, Total Volume: 1,000, Start date: 08/04/15 11:51:00, Duration: 30 day, Stop date: 09/03/15 11:50:00 potassium chloride
10 mEq, Inactive [place] 50 mL, Route: 2014 Medical IVPB, Drug Center form: INJ, Q1H, Dosing Weight 30.909, kg, Total Dose=40 meq, Start date: 08/04/15 8:30:00, Duration: 4 doses or times, Stop date: 08/04/15 11:30:00, Peripheral Line
S pecial Instructions: Peripheral Line
N otes: (Same as: KCL) Infuse over 2 hours. Flomax
0.4 mg, No Longer [place] 1 cap, Route: Active 2014 Medical PO, Drug Center form: CAP, After Breakfast, Dosing Weight 30.909, kg, Start date: 08/04/15 8:30:00, Duration: 30 day, Stop date: 09/02/15 8:30:00
N otes: (Same As: Flomax) "Do Not Crush" Potassium Chloride
60 mEq, Inactive [place] 1.33 MEQ/ML Oral 45 mL, Route: 2014 Medical Solution PO, Drug Center form: LIQ, ONCE, Dosing Weight 30.909, kg, Start date: 08/04/15 5:32:00, Stop date: 08/04/15 5:32:00
N otes: (Same as: Potassium Chloride) Vasotec
0.625 No Longer [place] mg, 0.5 mL, Active 2014 Medical Route: IVP, [place] Drug form: INJ, Q6H, Dosing Weight 30.909, kg, Start date: 08/04/15 0:00:00, Duration: 30 day, Stop date: 09/02/15 18:00:00
Notes: (Same as: Vasotec-IV) Phenytoin
100 mg, No Longer [facility] 2 mL, Route: Active 2014 Medical IVP, Drug Center form: INJ, Q12H, Dosing Weight 30.909, kg, Start date: 08/03/15 21:00:00, Duration: 30 day, Stop date: 09/02/15 9:00:00
N otes: (Same as: Dilantin) Do not infuse greater than 50 mg/min. MEDICATION WASTE Product Size: 100 mg Product Wasted: 0 mg 168 HR Clonidine
1 patch, No Longer [place] 0.0125 MG/HR Route: [facility], Active 2014 Medical Transdermal Patch Drug Form: [place] ERFILM, Dosing Weight 30.909, kg, Q7D, Start date: 08/03/15 21:00:00, Duration: 30 day, Stop date: 08/31/15 9:00:00
N otes: Patch delivers 0.3 mg/24 hours; Patch is applied weekly. Catapres-TTS- 3. "Remove old patch before application of new patch" Labetalol
10 mg, 2 No Longer [facility] mL, Route: Active 2014 Medical IV, Drug Center form: INJ, Q4H, Dosing Weight 30.909, kg, PRN See Nurse's Notes, Use if HR>80, Start date: 08/03/15 20:42:00, Duration: 30 day, Stop date: 09/02/15 20:41:00, SBP>160mmHg Hydralazine
20 mg, 1 No Longer [facility] mL, Route: Active 2014 Medical IVP, Drug Center form: INJ, Q4H, Dosing Weight 30.909, kg, PRN Elevated BP, Use if HR<80, Start date: 08/03/15 20:41:00, Duration: 30 day, Stop date: 09/02/15 20:40:00, SBP>160 mmHg
Note s: (Same as: Apresoline) Push over 5 minutes Spironolactone
25 mg, 1 Inactive [facility] tab, Route: 2014 Medical PO, Drug Center form: TAB, BID, Dosing Weight 30.909, kg, Start date: 08/03/15 19:44:00, Duration: 30 day, Stop date: 09/02/15 17:00:00
Notes: (Same As: Aldactone) Protonix
40 mg, 1 Inactive [facility] tab, Route: 2014 Medical PO, Drug Center form: ECTAB, Before Dinner, Start date: 08/03/15 16:30:00, Duration: 30 day, Stop date: 09/01/15 16:30:00
Notes: Tablet should not be chewed or crushed. (Same as: Protonix) Hydralazine
100 mg, Inactive [facility] 2 tab, Route: 2014 Medical PO, Drug Center form: TAB, Q8H-05, Dosing Weight 68.182, kg, Start date: 08/03/15 13:00:00, Stop date: 09/02/15 5:00:00
N otes: (Same as: Apresoline) May interfere w/enteral feedings Take With Food VESICARE
10 mg, No Longer [facility] Route: PO, Active 2014 Medical Drug form: Center TAB, Daily, Dosing Weight 68.182, kg, Start date: 08/03/15 9:00:00, Duration: 30 day, Stop date: 09/01/15 9:00:00 Lamictal
100 mg, Inactive [facility] 1 tab, Route: 2014 Medical PO, Drug Center form: TAB, BID, Dosing Weight 68.182, kg, Start date: 08/03/15 9:00:00, Duration: 30 day, Stop date: 09/01/15 17:00:00
Notes: (Same as:LaMICtal) Dutasteride
0.5 mg, Inactive [facility] 1 cap, Route: 2014 Medical PO, Drug Center form: CAP, Daily, Dosing Weight 68.182, kg, Start date: 08/03/15 9:00:00, Duration: 30 day, Stop date: 09/01/15 9:00:00
N otes: Non-Formulary Drug. (Same As: Avodart) (Do Not Crush) Dexilant
60 mg, No Longer [facility] Route: PO, Active 2014 Medical Drug form: Center DRC, Daily, Dosing Weight 68.182, kg, Start date: 08/03/15 9:00:00, Duration: 30 day, Stop date: 09/01/15 9:00:00 Detrol LA
4 mg, 1 Inactive [facility] cap, Route: 2014 Medical PO, Drug Center form: CAP, Daily, Start date: 08/03/15 9:00:00, Duration: 30 day, Stop date: 09/01/15 9:00:00
N otes: Do Not Crush. (Same As: Detrol LA) Carbidopa 25 MG /
1 tab, Inactive [facility] Levodopa 100 MG Oral Route: PO, 2014 Medical Tablet [Sinemet Drug Form: Center 25-100] TAB, Dosing Weight 68.182, kg, TID, Start date: 08/03/15 9:00:00, Duration: 30 day, Stop date: 09/01/15 17:00:00
Notes: Take with milk or food. (Same As: Sinemet) Buspar
10 mg, 1 Inactive [facility] tab, Route: 2014 Medical PO, Drug Center form: TAB, Daily, Dosing Weight 68.182, kg, Start date: 08/03/15 9:00:00, Duration: 30 day, Stop date: 09/01/15 9:00:00
N otes: (Same As: BuSpar) Aspirin 325 MG Oral
325 mg, Inactive [facility] Tablet 1 tab, Route: 2014 Medical PO, Drug Center form: TAB, Daily, Dosing Weight 68.182, kg, Start date: 08/03/15 9:00:00, Duration: 30 day, Stop date: 09/01/15 9:00:00
N otes: Take with food. Amantadine
100 mg, Inactive [facility] 1 cap, Route: 2014 Medical PO, Drug Center form: CAP, Daily, Dosing Weight 68.182, kg, Start date: 08/03/15 9:00:00, Duration: 30 day, Stop date: 09/01/15 9:00:00
N otes: (Same as: Symmetrel) Hydralazine
50 mg, 1 Inactive [facility] tab, Route: 2014 Medical PO, Drug Center form: TAB, Q6H, Dosing Weight 68.182, kg, Start date: 08/03/15 0:00:00, Duration: 30 day, Stop date: 09/01/15 18:00:00
Notes: (Same as: Apresoline) May interfere w/enteral feedings Take With Food Benicar
20 mg, 1 No Longer [facility] tab, Route: Active 2014 Medical PO, Drug Center form: TAB, Daily, Dosing Weight 68.182, kg, Start date: 08/02/15 22:32:00, Duration: 30 day, Stop date: 09/01/15 9:00:00 24 HR Nifedipine 90
90 mg, 1 No Longer [facility] MG Extended Release tab, Route: Active 2014 Medical Tablet PO, Drug Center form: ERTAB, Daily, Dosing Weight 68.182, kg, Start date: 08/02/15 22:32:00, Duration: 30 day, Stop date: 09/01/15 9:00:00
N otes: (Same as:Adalat CC, Procardia XL) Give on empty stomach. Take 1 hour before or 2 hours after meal; "Avoid grapefruit and grapefruit juice". Do not crush Bystolic
5 mg, 1 No Longer [facility] tab, Route: Active 2014 Medical PO, Drug Center form: TAB, Daily, Dosing Weight 68.182, kg, Start date: 08/02/15 22:32:00, Duration: 30 day, Stop date: 09/01/15 9:00:00
N otes: (same as: Bystolic) Hydrochlorothiazide
12.5 mg, No Longer [facility] 1 cap, Route: Active 2014 Medical PO, Drug Center form: CAP, Daily, Dosing Weight 68.182, kg, Start date: 08/02/15 22:32:00, Duration: 30 day, Stop date: 09/01/15 9:00:00
N otes: (Same as: Microzide) With food. Bystolic
5 mg, 1 Inactive [facility] tab, Route: 2014 Medical PO, Drug Center form: TAB, ONCE, Start date: 08/02/15 22:18:00, Stop date: 08/02/15 22:18:00
Notes: (same as: Bystolic) Adalat CC
90 mg, 1 Inactive [facility] tab, Route: 2014 Medical PO, Drug Center form: ERTAB, ONCE, Start date: 08/02/15 22:17:00, Stop date: 08/02/15 22:17:00
Notes: (Same as:Adalat CC, Procardia XL) Give on empty stomach. Take 1 hour before or 2 hours after meal; "Avoid grapefruit and grapefruit juice". Do not crush Benicar
20 mg, 1 Inactive [facility] tab, Route: 2014 Medical PO, Drug Center form: TAB, ONCE, Start date: 08/02/15 22:17:00, Stop date: 08/02/15 22:17:00 168 HR Clonidine
1 patch, No Longer [facility] 0.40898 MG/HR Route: TOP, Active 2014 Medical Transdermal Patch Drug Form: Center ERFILM, Dosing Weight 68.182, kg, Q7D, Start date: 08/02/15 21:00:00, Duration: 30 day, Stop date: 08/30/15 21:00:00
Notes: Patch delivers 0.2 mg/24 hours; Patch is applied weekly. "Remove old patch before application of new patch" (Same As: Catapres-TTS- 2) Flomax
0.4 mg, No Longer [place] 1 cap, Route: Active 2014 Medical PO, Drug Center form: CAP, Bedtime, Dosing Weight 68.182, kg, Start date: 08/02/15 21:00:00, Duration: 30 day, Stop date: 08/31/15 21:00:00
Notes: (Same As: Flomax) "Do Not Crush" Seroquel
12.5 mg, No Longer [place] 0.5 tab, Active 2014 Medical Route: PO, Center Drug form: TAB, Bedtime, Dosing Weight 68.182, kg, Start date: 08/02/15 21:00:00, Duration: 30 day, Stop date: 08/31/15 21:00:00
Notes: (Same as: SEROquel) Phenytoin
100 mg, No Longer [facility] 1 cap, Route: Active 2014 Medical PO, Drug Center form: ERCAP, QID, Dosing Weight 68.182, kg, Start date: 08/02/15 21:00:00, Duration: 30 day, Stop date: 09/01/15 17:00:00
Notes: (Same as: Dilantin) Do not open, crush, or chew. Mirtazapine
7.5 mg, No Longer [facility] 0.5 tab, Active 2014 Medical Route: PO, Center Drug form: TAB, Bedtime, Dosing Weight 68.182, kg, Start date: 08/02/15 21:00:00, Duration: 30 day, Stop date: 08/31/15 21:00:00
Notes: (Same as:Remeron) gabapentin 300 MG
300 mg, No Longer [facility] Oral Capsule 1 cap, Route: Active 2014 Medical [Neurontin] PO, Drug Center form: CAP, Bedtime, Dosing Weight 68.182, kg, Start date: 08/02/15 21:00:00, Duration: 30 day, Stop date: 08/31/15 21:00:00
Notes: (Same as: Neurontin) Melatonin
3 mg, 1 No Longer [place] tab, Route: Active 2014 Medical PO, Drug Center form: TAB, Bedtime, Dosing Weight 68.182, kg, PRN as needed for insomnia, Start date: 08/02/15 20:20:00, Duration: 30 day, Stop date: 09/01/15 20:19:00
Notes: (Same as: Melatonin) Vitamin B12
1,000 No Longer [place] microgram, Active 2014 Medical PO, Daily, 0 Center Refill(s) nebivolol 5 MG Oral
5 mg=1 Active [place] Tablet [Bystolic] tab, PO, 2014 Medical Daily, # 30 Center tab, 0 Refill(s) Docusate Sodium 100
100 mg=1 Active [place] MG Oral Capsule cap, PO, BID, 2014 Medical [Colace] PRN Center Constipation, # 20 cap, 0 Refill(s) Probiotic Formula
1 cap, Active [place] oral capsule PO, Daily, 0 2014 Medical Refill(s) Center Carbidopa 25 MG /
1 tab, Active [place] Levodopa 100 MG Oral PO, TID, # 90 2014 Medical Tablet [Sinemet tab, 0 Center 25-100] Refill(s) amantadine 100 mg
100 mg=1 No Longer [place] oral capsule cap, PO, Active 2014 Daily, 0 Center Refill(s) levocetirizine 5 mg
5 mg=1 No Longer [place] oral tablet tab, PO, QPM, Active 2014 Medical # 30 tab, 1 Center Refill(s) Vitamin C
1,000 Active [place] mg, PO, 2014 Medical Daily, 0 Center Refill(s) Dutasteride 0.5 MG /
See No Longer [place] Tamsulosin Instructions, Active 2014 Medical hydrochloride 0.4 MG 1 cap PO Center Oral Capsule [Anuja] Daily, 0 Refill(s)<br/ >Special Instructions: 1 cap PO Daily melatonin 3 mg oral
3 mg=1 Active [place] tablet tab, PO, 2014 Medical Bedtime, PRN Center for insomnia, # 60 tab, 0 Refill(s) echinacea oral tablet
See Active [facility] Instructions, 2014 Medical 0 Refill(s) Center Centrum Men's
1 tab, Active [place] PO, Daily, 0 2014 Medical Refill(s) Center NS 1,000 mL
1,000 No Longer [facility] mL, Rate: 100 Active 2014 Medical ml/hr, Infuse Center over: 10 hr, Route: IV, Dosing Weight 67.273 kg, Total Volume: 1,000, Start date: 08/02/15 17:28:00, Duration: 30 day, Stop date: 09/01/15 17:27:00 Docusate
100 mg, No Longer [place] 1 cap, Route: Active 2014 Medical PO, Drug Center form: CAP, BID, Dosing Weight 67.273, kg, PRN Constipation, Start date: 08/02/15 17:27:00, Duration: 30 day, Stop date: 09/01/15 17:26:00
Notes: (Same as: Colace) (Do Not Crush) Ondansetron
4 mg, 2 No Longer [place] mL, Route: Active 2014 Medical IVP, Drug Center form: INJ, Q6H, Dosing Weight 67.273, kg, PRN Nausea & Vomiting, Start date: 08/02/15 17:27:00, Duration: 30 day, Stop date: 09/01/15 17:26:00
Notes: (Same as: Zofran) MEDICATION WASTE Product Size: 4 mg Product Wasted: ___ mg Acetaminophen 325 MG
1 tab, No Longer [facility] / Hydrocodone Route: PO, Active 2014 Medical Bitartrate 5 MG Oral Drug Form: Center Tablet TAB, Dosing Weight 67.273, kg, Q4H, PRN Pain Score 4-6, Start date: 08/02/15 17:27:00, Duration: 30 day, Stop date: 09/01/15 17:26:00
Notes: (Same as: [place] 325/5) Do not exceed 4gm/day of acetaminophen . Acetaminophen
650 mg, No Longer [place] 2 tab, Route: Active 2014 Medical PO, Drug Center form: TAB, Q4H, Dosing Weight 67.273, kg, PRN Pain 1-3/Temp > 100.4 F, Start date: 08/02/15 17:27:00, Duration: 30 day, Stop date: 09/01/15 17:26:00<br/& gt;Notes: Do not exceed 4 gm/day. (Same as: Tylenol) PlasmaLyte A PH-7.4
1,000 No Longer [place] 1,000 mL mL, Rate: 100 Active 2014 Medical ml/hr, Infuse Center over: 10 hr, Route: IV, Dosing Weight 67.273 kg, Total Volume: 1,000, Start date: 08/02/15 16:32:00, Duration: 30 day, Stop date: 09/01/15 16:31:00 Zofran
4 mg, 2 Inactive [place] mL, Route: 2014 Medical IVP, Drug Center form: INJ, ONCE, Dosing Weight 67.273, kg, Priority: STAT, Start date: 08/02/15 13:11:00, Stop date: 08/02/15 13:11:00
Notes: (Same as: Zofran) MEDICATION WASTE Product Size: 4 mg Product Wasted: 0 mg Sodium Chloride 0.154
500 mL, Inactive [place] MEQ/ML Injectable 500 ml/hr, 2014 Medical Solution Infuse Over: Center 1 hr, Route: IV, 500, Drug form: INJ, ONCE, Priority: STAT, Dosing Weight 67.273 kg, Start date: 08/02/15 12:05:00, Duration: 1 doses or times, Stop date: 08/02/15 12:05:00 Ondansetron
4 mg, 2 Inactive [place] mL, Route: 2014 Medical IVP, Drug Center form: INJ, ONCE, Dosing Weight 67.273, kg, Priority: STAT, Start date: 08/02/15 11:14:00, Stop date: 08/02/15 11:14:00
Notes: (Same as: Leonid) MEDICATION WASTE Product Size: 4 mg Product Wasted: ___ mg Saline Flush 0.9%
10 mL, No Longer [place] Route: IVP, Active 2014 Medical Drug Form: Center INJ, Dosing Weight 67.273, kg, PRN, PRN Line Flush, Start date: 08/02/15 11:14:00, Duration: 30 day, Stop date: 09/01/15 11:13:00
Notes: (Same as: BD Posiflush) Sodium Chloride 0.154
500 mL, Inactive [place] MEQ/ML Injectable 1000 ml/hr, 2014 Medical Solution Infuse Over: Center 30 minutes, Route: IV, 500, Drug form: INJ, ONCE, Priority: STAT, Dosing Weight 67.273 kg, Start date: 08/02/15 11:14:00, Duration: 1 doses or times, Stop date: 08/02/15 11:14:00 Ondansetron 4 MG
4 mg=1 Active [place] Disintegrating Tablet tab, PO, TID, 2014 Medical TID before Center meals, # 60 tab, 1 Refill(s), Pharmacy: [facility] [id number]
Spe cial Instructions: TID before meals dexlansoprazole 60 MG
60 mg=1 Active [place] Enteric Coated cap, PO, 2013 Medical Capsule [Dexilant] Daily, # 15 Center cap, 0 Refill(s), given to patient mirtazapine 7.5 mg
7.5 mg=1 Active [facility] oral tablet tab, PO, 2013 Bedtime, # 30 tab, 0 Refill(s) Phenytoin
100 mg, Active [facility] QID, 0 2013 Refill(s) Olmesartan medoxomil 20 mg=1 tab, Active [place] 20 MG Oral Tablet PO, Daily, # 2014 Medical [Benicar] 90 tab, 0 Center Refill(s) melatonin 3 mg oral 3 mg=1 tab, Active [facility] tablet PO, Bedtime, 2013 for insomnia, # 60 tab, 0 Refill(s) SEROquel 12.5 mg, PO, Active [facility] Bedtime, take 2013 1/2 tablet, 0 Refill(s)<br/ >take 1/2 tablet hydrochlorothiazide 12.5 mg, PO, Active [facility] QID, 0 2013 Refill(s) aspirin 325 mg tablet 325 mg=1 tab, Active [facility] PO, Daily, # 2013 90 tab, 0 Refill(s) hydrALAZINE 75 mg, PO, Active [facility] Q6H, 2012 Substitution Allowed clonidine 0.1 mg/24 PRN, Active [facility] hr transdermal film, Substitution 2012 extended release Allowed, Maintenance Bystolic 5 mg oral 5 mg, 1 tab, Active [facility] tablet PO, Daily, 2012 tab, Substitution Allowed, TAB VESIcare 10 mg oral 10 mg, 1 tab, Active [facility] tablet PO, Daily, 2012 tab, Substitution Allowed, TAB gabapentin 300 mg, 1 PO No Longer [facility] [place] cap, Route: Active 2012 Medical PO, Drug Center form: CAP, Daily, Dosing Weight 72.727, kg, Start date: 01/03/13 21:00:00, Duration: 30 day, Stop date: 02/02/13 9:00:00 dutasteride 0.5 mg, 1 PO No Longer [facility] cap, Route: Active 2012 Medical PO, Drug Center form: CAP, Daily, Dosing Weight 76.364, kg, Start date: 01/02/13 9:00:00, Duration: 30 day, Stop date: 01/31/13 9:00:00 Prinivil 20 mg, Route: PO No Longer [facility] PO, Drug Active 2012 Medical form: TAB, Center Daily, Start date: 01/01/13 21:00:00, Duration: 30 day, Stop date: 01/31/13 9:00:00 gabapentin 300 mg, PO No Longer [facility] Route: PO, Active 2012 Medical Drug form: Center CAP, Daily, Dosing Weight 72.727, kg, Start date: 01/01/13 21:00:00, Duration: 30 day, Stop date: 01/31/13 9:00:00 hydrALAZINE 10 mg, 0.5 IV No Longer [facility] mL, Route: Active 2012 Medical IV, Drug Center form: INJ, ONCE, Dosing Weight 76.364, kg, Start date: 01/01/13 6:35:00, Stop date: 01/01/13 6:35:00 gabapentin 300 mg, 1 PO No Longer [facility] cap, Route: Active 2012 Medical PO, Drug Center form: CAP, Daily, Dosing Weight 72.727, kg, Start date: 12/31/12 21:00:00, Duration: 30 day, Stop date: 01/30/13 9:00:00 Prinivil 20 mg, 1 tab, PO No Longer [facility] Route: PO, Active 2012 Medical Drug form: Center TAB, Daily, Start date: 12/31/12 21:00:00, Duration: 30 day, Stop date: 01/30/13 9:00:00 hydrALAZINE 10 mg, 0.5 IV No Longer [facility] mL, Route: Active 2012 Medical IV, Drug Center form: INJ, ONCE, Dosing Weight 76.364, kg, Start date: 12/31/12 12:35:00, Stop date: 12/31/12 12:35:00 potassium chloride 20 mEq, 100 IVPB No Longer [facility] mL, Route: Active 2012 Medical IVPB, Drug Center form: INJ, ONCE, Dosing Weight 76.364, kg, Start date: 12/31/12 11:34:00, Stop date: 12/31/12 11:34:00 Dilantin 100 mg oral 400 mg, 4 PO No Longer [facility] capsule, extended cap, Route: Active 2012 Medical release PO, Drug Center form: ERCAP, Bedtime, Dosing Weight 72.727, kg, Start date: 12/30/12 21:00:00, Stop date: 01/28/13 21:00:00 Procardia 90 mg, Route: PO No Longer [facility] PO, Drug Active 2012 Medical form: CAP, Center Daily, Dosing Weight 72.727, kg, Start date: 12/30/12 9:00:00, Duration: 30 day, Stop date: 01/28/13 9:00:00 aspirin 325 mg, 1 PO No Longer [facility] tab, Route: Active 2012 Medical PO, Drug Center form: TAB, Daily, Dosing Weight 72.727, kg, Start date: 12/30/12 9:00:00, Duration: 30 day, Stop date: 01/28/13 9:00:00 gabapentin 300 mg, 1 PO No Longer [facility] cap, Route: Active 2012 Medical PO, Drug Center form: CAP, Daily, Dosing Weight 72.727, kg, Start date: 12/30/12 9:00:00, Duration: 30 day, Stop date: 01/28/13 9:00:00 Lamictal 100 mg, 1 PO No Longer [facility] tab, Route: Active 2012 Medical PO, Drug Center form: TAB, BID, Dosing Weight 72.727, kg, Start date: 12/30/12 9:00:00, Duration: 30 day, Stop date: 01/28/13 17:00:00 VESIcare 5 mg, Route: PO No Longer [facility] PO, Daily, Active 2012 Medical Dosing Weight Center 72.727, kg, Start date: 12/30/12 9:00:00, Duration: 30 day, Stop date: 01/28/13 9:00:00 Flomax 0.4 mg, 1 PO No Longer [facility] cap, Route: Active 2012 Medical PO, Drug Center form: CAP, Daily, Dosing Weight 72.727, kg, Start date: 12/30/12 9:00:00, Duration: 30 day, Stop date: 01/28/13 9:00:00 hydrALAZINE 50 mg 50 mg, 1 tab, PO No Longer [facility] oral tablet Route: PO, Active 2012 Medical Drug form: Center TAB, QID, Dosing Weight 72.727, kg, Start date: 12/30/12 9:00:00, Stop date: 01/28/13 21:00:00 Bystolic 10 mg, 2 tab, PO No Longer [facility] Route: PO, Active 2012 Medical Drug form: Center TAB, Daily, Dosing Weight 72.727, kg, Start date: 12/30/12 9:00:00, Duration: 30 day, Stop date: 01/28/13 9:00:00 Lotensin HCT 20 2 tab, Route: PO No Longer [facility] [place] mg-12.5 mg oral PO, Dosing Active 2012 Medical tablet Weight Center 72.727, kg, Daily, Start date: 12/30/12 9:00:00, Duration: 30 day, Stop date: 01/28/13 9:00:00 enoxaparin 40 mg, 0.4 SUB-Q No Longer [facility] [place] mL, Route: Active 2012 Medical SUB-Q, Drug Center form: INJ, [id number], Dosing Weight 72.727, kg, Start date: 12/30/12 9:00:00, Duration: 30 day, Stop date: 01/28/13 9:00:00 hydrochlorothiazide 25 mg, 1 tab, PO No Longer [facility] [place] Route: PO, Active 2012 Medical Drug form: [place] TAB, Daily, Start date: 12/30/12 9:00:00, Stop date: 01/28/13 9:00:00 Detrol LA 4 mg, 1 cap, PO No Longer [facility] Route: PO, Active 2012 Medical Drug form: [place] CAP, Daily, Start date: 12/30/12 9:00:00, Duration: 30 day, Stop date: 01/28/13 9:00:00 Adalat CC 90 mg, 1 tab, PO No Longer [facility] Route: PO, Active 2012 Medical Drug form: [place] ERTAB, Daily, Start date: 12/30/12 9:00:00, Duration: 30 day, Stop date: 01/28/13 9:00:00 Prinivil 20 mg, 1 tab, PO No Longer [facility] Route: PO, Active 2012 Medical Drug form: [place] TAB, Daily, Start date: 12/30/12 9:00:00, Duration: 30 day, Stop date: 01/28/13 9:00:00 magnesium sulfate 2 gm, 50 mL, IVPB No Longer [facility] [place] Route: IVPB, Active 2012 Medical Drug form: Center INJ, Q2H, Dosing Weight 72.727, kg, Total Dose=4 gm, Start date: 12/30/12 8:00:00, Duration: 2 doses or times, Stop date: 12/30/12 10:00:00, For Mg=1.5 - 1.7 mg/dL
For Mg=1.5 - 1.7 mg/dL magnesium sulfate 2 gm, 100 mL, IVPB No Longer [facility] [place] Route: IVPB, Active 2012 Medical Drug form: Center INJ, Q2H, Dosing Weight 72.727, kg, Total Dose=4 gm, Start date: 12/30/12 4:00:00, Duration: 2 doses or times, Stop date: 12/30/12 6:00:00, For Mg=1.5 - 1.7 mg/dL
For Mg=1.5 - 1.7 mg/dL Phenergan 12.5 mg, 0.5 IVPB No Longer [place] mL, Route: Active 2012 Medical IVPB, Drug Center form: INJ, ONCE, Dosing Weight 72.727, kg, PRN Nausea & Vomiting, Start date: 12/30/12 3:52:00, Stop date: 01/29/13 2:51:00 aspirin 325 mg, PO No Longer [facility] [place] Route: PO, Active 2012 Medical Drug form: Center TAB, ONCE, Dosing Weight 72.727, kg, Priority: STAT, Start date: 12/30/12 3:46:00, Stop date: 12/30/12 3:46:00 potassium chloride 40 mEq, 30 [place] No Longer [facility] [place] mL, Route: Active 2012 Medical [place], Drug Center form: LIQ, ONCE, Dosing Weight 72.727, kg, Start date: 12/30/12 3:43:00, Duration: 1 doses or times, Stop date: 12/30/12 3:43:00, For K=3 - 3.4 mEq/L
For K=3 - 3.4 mEq/L D5W 1/2NS + KCL 1,000 mL, IV No Longer [facility] [place] 20mEq/L 1000ml Rate: 75 2012 Medical ([facility]) 1,000 mL ml/hr, Infuse Center over: 13.3 hr, Route: IV, kg, Total Volume: 1,000, Start date: 12/30/12 3:42:00, Duration: 30 day, Stop date: 01/29/13 3:41:00 hydrALAZINE 20 mg, Route: IVP No Longer [place] IVP, ONCE, 2012 Medical Dosing Weight Center 72.727, kg, Priority: STAT, Start date: 12/30/12 2:48:00, Stop date: 12/30/12 2:48:00 hydrALAZINE 50 mg 1 tab, Route: PO No Longer [place] oral tablet PO, ONCE, 2012 Medical Dosing Weight Center 72.727, kg, Start date: 12/30/12 2:37:00, Stop date: 12/30/12 2:37:00 Zofran 8 mg, 4 mL, IVP No Longer [place] Route: IVP, 2012 Medical Drug form: [place] INJ, ONCE, Dosing Weight 72.727, kg, Priority: STAT, Start date: 12/30/12 1:16:00, Stop date: 12/30/12 1:16:00 Omnipaque 350mg/ml 82 mL, Route: IVP [facility] [place] IVP, Drug Active 2012 Medical Form: [facility] Dosing Weight 72.727, kg, ONCALL, STAT, Start date: 12/29/12 23:44:00, Duration: 1 doses or times, Dose=2.2ml/kg , Max [id number] -- "To be infused by Radiology Staff ONLY"
Dos e=2.2ml/kg, Max [id number] -- "To be infused by Radiology Staff ONLY" Zofran 4 mg, 2 mL, IVP No Longer [place] Route: IVP, Active 2012 Medical Drug form: Center INJ, ONCE, Dosing Weight 72.727, kg, Priority: STAT, Start date: 12/29/12 22:54:00, Stop date: 12/29/12 22:54:00 levocetirizine 5 mg 5 mg, 1 tab, PO Active [facility] oral tablet PO, QPM, 2011 Substitution Allowed, Maintenance Lamictal 100 mg oral 100 mg, 1 PO Active [facility] tablet tab, PO, 2011 Q12H, Substitution Allowed Flagyl 500 mg oral 500 mg, 1 PO Active [facility] tablet tab, PO, TID, 2011 2 weeks duration of treatment- started 07/31/2012, Substitution Allowed
2 weeks duration of treatment- started 07/31/2012 hyoscyamine 0.125 mg 0.125 mg, 1 SL Active [facility] sublingual tablet tab, SL, Q4H, 2011 may take up to 2 SL PRN, Substitution Allowed
m ay take up to 2 SL PRN Anuja oral capsule 1 cap, PO, PO Active [facility] Daily, 2011 finesteride/f wilber combo 1mg, Substitution Allowed, Maintenance<b r/>finesterid e/flomax combo 1mg Calcium 600 +D oral 1 tab, PO, PO Active [facility] tablet BID, 2011 Substitution Allowed, Maintenance B-12 Resin 1000 mcg 1,000 PO Active [facility] oral tablet microgram, 1 2011 tab, PO, Daily, 30 tab, Substitution Allowed, TAB VESIcare 5 mg oral 5 mg, 1 tab, PO Active [facility] tablet PO, Daily, 2011 tab, Substitution Allowed, TAB Procardia XL 90 mg 90 mg, 1 tab, PO Active [facility] oral tablet, extended PO, Daily, 2011 release tab, Substitution Allowed, ERTAB Lotensin 40 mg oral 40 mg, 1 tab, PO Active [facility] tablet PO, Daily, 2011 tab, Substitution Allowed, TAB Multiple Vitamins 1 tab, PO, PO Active [facility] oral tablet Daily, 2011 tab, Substitution Allowed, Maintenance, TAB hydrochlorothiazide 25 mg, 1 tab, PO Active [facility] 25 mg oral tablet PO, Daily, 2011 tab, Substitution Allowed Bystolic 10 mg oral 10 mg, 1 tab, PO Active 01/07/ [facility] tablet PO, Daily, 2011 tab, Substitution Allowed, TAB aspirin 81 mg tablet, 81 mg, 1 tab, PO Active 01/07/ [facility] enteric coated PO, Daily, 0 2011 tab, Substitution Allowed, ECTAB Allergies, Adverse Reactions, Alerts Substance Category Reaction Severity Reaction Status Date Comments Source type Reported NKDA Assertion Drug Active [facility] allergy [facility] [facility] Immunizations Immunization Date Site Status Last Updated Comments Source Given influenza virus Right completed Cheerathodi OPID vaccine, 5 deltoid [place] [facility], [facility] Results Order Name Results Value Reference Date Interpretation Comments Source Range Chest 2 Chest 2 EXAM: XR CHEST 2 VIEWS 04/25 - [facility] views DX views - [facility] DATE: 04/25/2018 2:53 PM CDT Read by: Kaz Oneil MD Dictated Date/time: 04/25/18 15:16 Electronically Signed by: Kaz Oneil MD 04/25/18 15:18 FINAL REPORT INDICATION: J69.0 Pneumonitis due to inhalation of food and vomit - pneumonia fu COMPARISON: 05/20/2017, 04/15/2017 TECHNIQUE: PA and lateral chest radiographs FINDINGS: Peripheral confluent airspace opacities are present in the periphery of the right mid to lower lung and 2 separate areas. There is blunting of the right costophrenic angle compatible with a pleural effusion. Brittany and pulmonary vasculature are normal. Cardiomediastinal silhouette is normal in appearance. No acute bony abnormality is identified. Multilevel spondylosis is again seen in the thoracic spine. Tendon anchors are again seen in the right humeral head. IMPRESSION: Multifocal pneumonia right lung, likely aspiration induced as per the patient's history. There is an associated small right pleural effusion. Follow-up chest x-ray in several weeks is recommended to ensure regression/resolution and to exclude other underlying pathology. Abdomen Abdomen EXAM: XR ABDOMEN COMPLETE WITH DECUBITUS/ERECT VIEWS - [facility] Compl w Compl - [place] decub/erect decub/erect Imaging views DX views DX DATE: 05/23/2017 8:14 AM CDT Read by: Dion Rodriguez MD Dictated Date/time: 05/23/17 09:30 Electronically Signed by: Dion Rodriguez MD 05/23/17 09:39 FINAL REPORT INDICATION: - bowel obstruction ADDITIONAL INFORMATION: None. COMPARISON: Abdominal series 05/20/2017 and CXR 04/15/2017. TECHNIQUE: Single frontal view of the abdomen. FINDINGS: Lines and tubes: None. Right upper quadrant surgical clips. Lower thorax: Bibasilar airspace disease, right greater than left. Bibasilar scarring. Prominent cardiac silhouette with tortuous thoracic aorta. Bowel: No free air beneath the hemidiaphragms. Gaseous distention of the stomach. Previously described mild gaseous distention and dilatation of the colon is not seen. Moderate colonic stool burden. No small bowel dilatation. Paucity of rectal gas. Solid organs: No abnormal mass or organomegaly seen. Calcifications: Basilar calcifications of the tortuous splenic artery. Vascular calcifications of the abdominal aorta. Pelvic phleboliths. Bones: Unchanged moderate degenerative changes of the thoracolumbar spine. Joint space narrowing of the bilateral hips. IMPRESSION: 1. Nonobstructive bowel gas pattern. 2. Moderate colonic stool burden. No definite colonic dilatation. 3. Right basilar airspace disease slightly more prominent than the prior chest x-ray on 04/15/2017, could represent a component of increased atelectasis or possible developing pneumonia. Recommend repea t PA/lateral chest x-ray in 8-12 weeks to document resolution versus changes. Abdomen Abdomen EXAM: Acute abdominal series 05/20 - [facility] acute acute series /2016 - [place] series w w chest 1 Imaging chest 1 view DX view DX Read by: Alejandra Seay MD Dictated Date/time: 05/20/17 10:57 DATE: 05/20/2017 10:39 AM CDT Electronically Signed by: Alejandra Seay MD 05/20/17 11:01 FINAL REPORT INDICATION: wt loss, constipation - wt loss, constipation ADDITIONAL INFORMATION: None. COMPARISON: Chest from 03/22 TECHNIQUE: Upright and supine abdominal x-rays and PA view of the chest x- ray FINDINGS: Bibasilar scarring. No pneumoperitoneum. Extensive vascular calcifications. Degenerative changes involving thoracolumbar spine. No small bowel dilation. Transverse colon and splenic flexure dilated measuring up to 7 cm IMPRESSION: 1. Colonic dilation measuring up to 7 cm without significant stool burden. May represent colonic ileus versus obstruction. Recommend follow-up radiographs and clinical correlation. Chest 2 Chest 2 EXAM: XR CHEST 2 VIEWS 04/15 - [facility] views DX views - Imaging DATE: 04/15/2017 10:21 AM CDT Read by: Roddy Barr MD Dictated Date/time: 04/15/17 11:09 Electronically Signed by: Roddy Barr MD 04/15/17 11:11 FINAL REPORT INDICATION: bronchitis - bronchitis ADDITIONAL INFORMATION: None. COMPARISON: 10/06/2016 TECHNIQUE: PA and lateral chest radiographs. Number of images: 2 FINDINGS: Lines and tubes: None. Lungs and pleura: There is bilateral posterior basal scarring.. Heart and mediastinum: The heart size is normal for technique. The mediastinal contours there is stable mild prominence of the descending aortic arch and descending aortic arch. Comparison to the CT [place] from 10/07/2016 demonstrates a normal caliber aorta. There is increased density seen along the right lower heart border consistent with an enlarged right atrium confirmed on the prior CT. Bones: No acute bony abnormality is identified. Soft Tissues: Unremarkable. IMPRESSION: 1. No acute cardiopulmonary abnormality seen. Abdomen AP Abdomen AP EXAM: X-RAY ABDOMEN ONE VIEW 02/28 - [facility] DX - Imaging DATE: 02/28/2017 11:27 AM CDT Read by: Kaz Oneil MD Dictated Date/time: 02/28/17 12:06 Electronically Signed by: Kaz Oneil MD 02/28/17 12:10 FINAL REPORT INDICATION: constipation COMPARISON: 10/04/2016 TECHNIQUE: Supine AP views of the abdomen FINDINGS: There is gaseous distention of the stomach bubble to a moderate degree. Portions of the proximal descending colon and transverse colon are gaseously dilated up to 8.3 cm in maximal diameter. S urgical clips are again demonstrated in the right upper quadrant. Atherosclerotic calcifications are seen in the abdominal aorta and splenic artery. Calcified phleboliths are seen in the pelvis. Advance d degenerative disc disease type changes are again seen in the thoracolumbar spine. Linear scarring or subsegmental atelectasis is seen in the right lung base laterally, stable from the prior exam. IMPRESSION: 1. New gaseous distention and dilatation of portions of the transverse colon and a portion of the descending colon, likely from an ileus. Distal colonic obstruction is less likely. 2. Besides passage of colonic contrast material, no other significant interval changes occurred. Chest wo Chest wo EXAM: CT CHEST WITHOUT CONTRAST 12/13 - [facility] contrast CT contrast CT /2016 - Medical This report was dictated by a [employer] Worker/Fellow. I have personally reviewed the images as Center well as the Resident's interpretation and agree with the findings. DATE: 12/13/2016 7:17 AM STRATEGY ASSOCIATE Read by: Victoria Trejo MD Resident: Victoria Trejo MD Dictated Date/time: 12/13/16 08:34 Electronically Signed by: Sweta Springer MD 12/13/16 11:32 FINAL REPORT INDICATION: Pulmonary fibrosis. Parkinson's, prior CVA, aspiration. History of treated colon cancer. TECHNIQUE: Volumetric CT acquisition of the chest without contrast. Axial, sagittal and coronal reconstructions. Axial MIP reformats are reconstructed at the workstation. IV contrast: None. DLP: 567 mGy-cm COMPARISON: CT chest 10/07/2016 FINDINGS: Lines and Tubes: None. Lower Neck: The visible portions or the lower neck and thyroid are unremarkable. Heart and Great Vessels: Evaluation of the aorta and pulmonary artery are suboptimal due to noncontrast technique. Atheromatous plaque is seen in the thoracic aorta. Advanced coronary artery plaque. The aorta and pulmonary aris ry are normal in caliber, measuring 3.6 cm and 2.6 cm respectively. The cardiothoracic ratio is within normal limits. No pericardial effusion. Lymph Nodes: The 12 mm AP window node is decreased in size, previously measuring 20 mm. The subcentimeter paratracheal lymph nodes are slightly decreased in size. No axillary or internal mammary lymphad enopathy. Evaluation for hilar adenopathy is suboptimal due to noncontrast technique. Lungs: Centrilobular and paraseptal emphysema is seen in the apices. Reticular opacities with subpleural reticulation in the lower lobes bilaterally associated with bronchiectasis are unchanged. Patchy left upper lobe , right upper lobe, and right middle lobe airspace opa cities with tree-in-bud nodularity are slightly improved. Multiple pulmonary nodules are stable to slightly improved. For example, the 4 mm left upper lobe pulmonary nodule is decreased in size, previou sly measuring 12 mm (image 104, series 3) and most likely reflects sequela of inflammation or infection. Punctate calcified granulomas in both lower lobes are unchanged. Pleura: Interval resolution of small bilateral pleural effusions is observed. Upper abdomen: Sutures are partially seen within the transverse colon. The patient is status post prior cholecystectomy. Subcentimeter low-attenuation lesions involving segment for a are too small to c haracterize. The visualized portion of the spleen and adrenal glands are within normal limits. Severe atherosclerotic plaque involving the abdominal aorta and its branches is observed. Bones and Soft Tissues: Osteopenia and severe degenerative disc disease is unchanged. Large anterior osteophytes are suggestive of diffuse idiopathic skeletal hyperostosis. Postoperative changes are seen at the right glenohumeral joint. IMPRESSION: 1. Stable reticular opacities with subpleural reticulation in the lower lobes associated with bronchiectasis compatible with chronic mild interstitial scarring, perhaps related to chronic aspiration. 2. Slightly improved patchy airspace opacities and tree-in-bud nodularity opacities in the upper lobes and right middle lobe suggestive of aspiration and/ or endobronchial spread of infection. 3. Multiple improved scattered pulmonary nodules that are most likely related to inflammation or infection. Continued follow-up is recommended given the patient's history of colon cancer. 4. Centrilobular and paraseptal emphysema in the apices. 5. Interval resolution of small bilateral pleural effusions. 6. Decreased size of mediastinal lymph nodes, suggestive of reactive adenopathy. 7. Advanced coronary artery plaque. Torso-Outsi Torso-Outsid EXAM: CT CHEST WITHOUT CONTRAST 10/07 [facility] de Consult e Consult CT /2015 - [facility] [place] DATE: 10/07/2016 1:29 PM STRATEGY ASSOCIATE Read by: Pito Ware MD Dictated Date/time: 10/07/16 15:23 Electronically Signed by: Pito Ware MD 10/07/16 15:37 FINAL REPORT INDICATION: Outside study for 2nd opinion. COMPARISON: Abdominal CT dated 08/17/2015 TECHNIQUE: Outside study for 2nd opinion. Axial images only. FINDINGS: Lines and Tubes: None. Heart and Great Vessels: The aorta and main pulmonary artery measure 3.7 and 2.6 cm. respectively. The cardiothoracic radio measures 14/28. Small pericardial effusion is present. Dense three-vessel co ronary artery vascular consultation are present. Mild to moderate mitral annular calcification are present. There is mild enlargement of the left atrium with AP diameter 4.2 cm. Lymph Nodes: Within limitations of nonenhanced exam, no significant adenopathy. Lungs: There is mild biapical scarring with no pneumothorax identified. Trachea and central bronchi are unremarkable. Small bilateral dependent pleural effusions are present with superimposed areas of consolidation. Mild subpleural reticulation is present in the upper lobes. Interstitial thickening and mild patchy airspace opacities are present in the lower lobes. There are a few calcified granulomat a present. Minimal scattered airspace opacities are present in the left upper lobe best demonstrated on images 21 through 24. Upper abdomen: Dense mesenteric vascular calcifications partially visualized. Bones and Soft Tissues: Degenerative changes in the spine. Surgical anchors are present in the right humeral head. IMPRESSION: 1. Small bilateral pleural effusions with basilar areas of airspace opacity. Superimposed mild subpleural reticulation is present. Findings can be seen as sequela of chronic microaspiration. Given patc hy airspace opacities in the left upper lobe and lung bases, superimposed acute infectious/inflammatory process on chronic mild interstitial scarring is favored. 2. Advanced coronary artery vascular calcifications. 3. Ectasia ascending aorta 3.7 cm. CHEM PANEL Phosphorus 2.6 mg/dL 2.5 - 4.5 10/07 [facility] CHEM PANEL AST 11 unit/L 0 - 37 10/[address] CHEM PANEL Alk Phos 105 unit/L 39 - 136 10/[address] CHEM PANEL A/G Ratio 1.0 0.7 - 1.6 10/07 [facility]2015 [facility] CHEM PANEL ALT 11 unit/L 0 - 65 10/[address] CHEM PANEL Globulin 2.9 g/dL 2.7 - 4.2 10/07 [facility]2015 [facility] CHEM PANEL Total 5.9 g/dL 6.4 - 8.4 10/07 [facility] CHEM PANEL Albumin Lvl 3.0 g/dL 3.5 - 5.0 10/[address] CHEM PANEL Bili 0.2 mg/dL 0.0 - 1.0 10/07 [facility] CHEM PANEL Bili Total 0.3 mg/dL 0.2 - 1.3 10/07 [facility] CHEM PANEL Bili Direct 0.1 mg/dL 0.0 - 0.3 10/[address] CHEM PANEL Magnesium 2.1 mg/dL 1.8 - 2.4 10/07 [facility] ELECTROLYTE AGAP 17.5 meq/L 10.0 - 10/07 [facility] 20.0 [facility] ELECTROLYTE eGFR 78 10/07 Result Comment: The eGFR is calculated using the CKD-EPI formula. In most young, healthy individuals the eGFR will be >90 mL/ min/1.73m2. The eGFR declines with age. An eGFR of 60-89 may be normal in [facility] mL/min/1.7 /2015 some populations, particularly the elderly, for whom the CKD-EPI formula has not been extensively validated. Use of the eGFR is not recommended in the following populations: [address] Individuals with unstable creatinine concentrations, including patients and those with serious co-morbid conditions. Patients with extremes in muscle mass or diet. The data above are obtained from the National Kidney Disease Education Program (NKDEP) which additionally recommends that when the eGFR is used in patients with extremes of body mass index for purposes of drug dosing, the eGFR should be multiplied by the estimated BMI. ELECTROLYTE BUN 18 mg/dL 7 - 22 10/07 [facility] ELECTROLYTE Creatinine 0.88 mg/dL 0.50 - 10/07 [facility] Lvl 1.40 [facility] ELECTROLYTE Sodium Lvl 142 meq/L 135 - 145 10/07 [facility]2015 [facility] ELECTROLYTE Glucose Lvl 82 mg/dL 70 - 99 10/07 [facility] ELECTROLYTE Chloride Lvl 104 meq/L 95 - 109 10/07 [facility]2015 [facility] ELECTROLYTE CO2 24 meq/L 24 - 32 10/[address] ELECTROLYTE Potassium 3.5 meq/L 3.5 - 5.1 10/07 [facility] ELECTROLYTE Calcium Lvl 8.8 mg/dL 8.5 - 10.5 10/[address] HEMATOLOGY Monocytes 6.2 % 2.0 - 12.0 10/07 [facility]2015 [facility] HEMATOLOGY Basophils 0.7 % 0.0 - 1.0 10/[address] HEMATOLOGY Eosinophils 12.7 % 0.0 - 4.0 10/07 /2015 [facility] HEMATOLOGY Segs-Bands # 4.2 K/CMM 1.5 - 8.1 10/07 /2015 [facility] HEMATOLOGY Lymphocytes 1.2 K/CMM 1.0 - 5.5 10/07 [place] # /2016 [facility] HEMATOLOGY Eosinophils 0.8 K/CMM 0.0 - 0.5 10/07 [place] # /2016 [facility] HEMATOLOGY Monocytes # 0.4 K/CMM 0.0 - 0.8 10/07 /2015 [facility] HEMATOLOGY Lymphocytes 17.4 % 20.0 - 10/07 [place] 40.0 /2015 [facility] HEMATOLOGY Segs 63.0 % 45.0 - 10/07 [place] 75.0 /2015 [facility] HEMATOLOGY MPV 8.4 fL 7.4 - 10.4 10/07 /2015 [facility] HEMATOLOGY Hct 32.7 % 42.0 - 10/07 [place] 54.0 [facility] HEMATOLOGY MCH 31.2 pg 27.0 - 10/07 [place] 31.0 [facility] HEMATOLOGY RBC 3.63 M/CMM 4.70 - 10/07 [place] 6.10 [facility] HEMATOLOGY Hgb 11.3 g/dL 14.0 - 10/07 [place] 18.0 /2015 [facility] HEMATOLOGY WBC 6.7 K/CMM 3.7 - 10.4 10/07 /2015 [facility] HEMATOLOGY Platelet 218 K/CMM 133 - 450 10/07 /2015 [facility] HEMATOLOGY RDW 12.8 % 11.5 - 10/07 [place] 14.5 [facility] HEMATOLOGY MCHC 34.6 g/dL 32.0 - 10/07 [place] 36.0 [facility] HEMATOLOGY MCV 90.2 fL 80.0 - 10/07 [place] 94.0 [facility] PARATHYROID Ca Norm WB 1.12 1. - 10/07 [facility] PROFILE mMol/L 1. [facility] PARATHYROID Ca Ion WB 1.14 1. - 10/07 [facility] PROFILE mMol/L 1. [facility] Esophagus Esophagus BA EXAM: FLUOROSCOPY MODIFIED BARIUM SWALLOW 10/07 - [facility] BA swallow swallow - Medical function function This report was dictated by a [place] [employer] Worker/ Fellow. I have personally reviewed the images as Center video DX video DX well as the Resident's interpretation and agree with the findings. DATE: 10/07/2016 at 1018 hours Read by: Tereso Amaya MD Resident: Tereso Amaya MD Dictated Date/time: 10/07/16 13:08 Electronically Signed by: Hudson Obando MD 10/07/16 13:14 FINAL REPORT INDICATION: Dysphagia. COMPARISON: Modified barium swallow study 01/18/2000 TECHNIQUE: Oral barium contrast of differing consistencies was given to the patient to assess swallowing mechanism. The study was performed in conjunction with speech pathology. FLUOROSCOPY TIME: 02:34 minutes SKIN DOSE: 5.78 mGy DISCUSSION: The patient was given barium contrast of different consistencies. Thin barium: Silent aspiration was observed. [place] barium: Deep penetration was observed, improved with chin tuck. Pudding barium: Flash penetration. No aspiration. Solid with barium: Flash penetration. No aspiration. IMPRESSION: 1. Silent aspiration with thin consistency contrast material. 2. Deep penetration with nectar consistency contrast material. 3. Please also see detailed chart note by speech pathology. CHEM PANEL Phosphorus 3.2 mg/dL 2.5 - 4.5 10/[address] CHEM PANEL Magnesium 2.5 mg/dL 1.8 - 2.4 10/[address] ELECTROLYTE AGAP 19.7 meq/L 10.0 - 10/06 [facility] 20.0 [facility] ELECTROLYTE Calcium Lvl 8.7 mg/dL 8.5 - 10.5 10/[address] ELECTROLYTE Potassium 3.7 meq/L 3.5 - 5.1 10/[address] ELECTROLYTE Chloride Lvl 105 meq/L 95 - 109 10/[address] ELECTROLYTE CO2 22 meq/L 24 - 32 10/[address] ELECTROLYTE eGFR 76 10/06 Result Comment: The eGFR is calculated using the CKD-EPI formula. In most young, healthy individuals the eGFR will be >90 mL/ min/1.73m2. The eGFR declines with age. An eGFR of 60-89 may be normal in [facility] mL/min/1.7 some populations, particularly the elderly, for whom the CKD-EPI formula has not been extensively validated. Use of the eGFR is not recommended in the following populations: [address] Individuals with unstable creatinine concentrations, including patients and those with serious co-morbid conditions. Patients with extremes in muscle mass or diet. The data above are obtained from the National Kidney Disease Education Program (NKDEP) which additionally recommends that when the eGFR is used in patients with extremes of body mass index for purposes of drug dosing, the eGFR should be multiplied by the estimated BMI. ELECTROLYTE Creatinine 0.91 mg/dL 0.50 - 10/06 [facility] S Lvl 1.40 [facility] ELECTROLYTE BUN 23 mg/dL 7 - 22 10/06 [facility] S /2015 [facility] ELECTROLYTE Glucose Lvl 66 mg/dL 70 - 99 10/06 [facility] S /2015 [facility] ELECTROLYTE Sodium Lvl 143 meq/L 135 - 145 10/06 [facility] S /2015 [facility] HEMATOLOGY Segs 71.3 % 45.0 - 10/06 [place] 75.0 [facility] HEMATOLOGY Eosinophils 11.6 % 0.0 - 4.0 10/06 [facility] HEMATOLOGY Basophils 0.4 % 0.0 - 1.0 10/06 [facility] HEMATOLOGY Lymphocytes 0.8 K/CMM 1.0 - 5.5 10/06 [place] # /2016 [facility] HEMATOLOGY Segs-Bands # 4.6 K/CMM 1.5 - 8.1 10/06 /2015 [facility] HEMATOLOGY Monocytes 4.3 % 2.0 - 12.0 10/06 /2015 [facility] HEMATOLOGY Lymphocytes 12.4 % 20.0 - 10/06 [place] 40.0 [facility] HEMATOLOGY Eosinophils 0.8 K/CMM 0.0 - 0.5 10/06 [facility] # /2016 [facility] HEMATOLOGY Monocytes # 0.3 K/CMM 0.0 - 0.8 10/06 /2015 [facility] HEMATOLOGY MPV 8.2 fL 7.4 - 10.4 10/06 2015 [facility] HEMATOLOGY RDW 12.8 % 11.5 - 10/06 [place] 14.5 [facility] HEMATOLOGY Platelet 189 K/CMM 133 - 450 10/06 /2015 [facility] HEMATOLOGY MCHC 33.9 g/dL 32.0 - 10/06 [place] 36.0 /2015 [facility] HEMATOLOGY Hgb 10.3 g/dL 14.0 - 10/06 [place] 18.0 /2015 [facility] HEMATOLOGY RBC 3.32 M/CMM 4.70 - 10/06 [place] 6.10 /2015 [facility] HEMATOLOGY Hct 30.4 % 42.0 - 10/06 [facility] 54.0 [facility] HEMATOLOGY MCH 31.2 pg 27.0 - 10/06 [facility] 31.0 [facility] HEMATOLOGY MCV 91.8 fL 80.0 - 10/06 [place] 94.0 [facility] HEMATOLOGY WBC 6.5 K/CMM 3.7 - 10.4 10/06 [facility] /2015 [facility] PARATHYROID Ca Ion WB 1.11 1.05 - 10/06 [facility] PROFILE mMol/L 1. [facility] PARATHYROID Ca Norm WB 1.13 1. - 10/06 [facility] PROFILE mMol/L 1. [facility] Chest 1view Chest 1view EXAM: XR CHEST 1 VIEW 10/06 - [facility] DX DX [facility] DATE: 10/06/2016 8:42 AM STRATEGY ASSOCIATE Read by: Julio C Lai MD Dictated Date/time: 10/06/16 09:36 Electronically Signed by: Julio C Lai MD 10/06/16 11:14 FINAL REPORT INDICATION: Abnormal chest sounds COMPARISON: 10/04/2016 at 0959. TECHNIQUE: AP chest FINDINGS: Lines and tubes: None. Lungs and pleura: Persistent alveolar opacities in the lung bases with blunting of the costophrenic sulci, compatible with findings of interstitial lung disease. Superimposed process such as infection o r flare of interstitial lung disease is possible. Small pleural effusions. Heart and mediastinum: Stable mediastinal contours. Gallbladder is surgically absent. Significant atherosclerosis of the splenic arteries is noted. IMPRESSION: 1. Increased airspace opacities in the lung bases, compatible with acute airspace process superimposed on chronic changes of interstitial lung disease. Brain wo Brain wo EXAM: CT BRAIN WITHOUT CONTRAST 10/05 - [facility] contrast CT contrast CT /2015 [facility] INDICATION: Acute cognitive change Read by: Estee Nunez MD Dictated Date/time: 10/05/16 12:24 Electronically Signed by: Estee Nunez MD 10/05/16 12:28 FINAL REPORT COMPARISON: 08/02/2015 TECHNIQUE: Routine axial CT images of the brain were obtained. DISCUSSION: No intracranial hemorrhage or mass effect. No acute infarction. Encephalomalacia in the right basal ganglia and external capsule with compensatory dilatation of the right frontal horn. A focus of enceph alomalacia each any of the left internal capsule. Microangiopathic changes and generalized parenchymal volume loss are redemonstrated. Calvarium is intact. Paranasal sinuses are clear. IMPRESSION: Stable exam without acute intracranial abnormality. CHEM PANEL Magnesium 2.4 mg/dL 1.8 - 2.4 10/05 [facility] CHEM PANEL Phosphorus 3.0 mg/dL 2.5 - 4.5 10/[address] ELECTROLYTE Chloride Lvl 102 meq/L 95 - 109 10/[address] ELECTROLYTE Potassium 3.9 meq/L 3.5 - 5.1 10/05 [facility] ELECTROLYTE AGAP 15.9 meq/L 10.0 - 10/05 [facility] 20.0 [facility] ELECTROLYTE CO2 26 meq/L 24 - 32 10/[address] ELECTROLYTE Calcium Lvl 8.2 mg/dL 8.5 - 10.5 10/[address] ELECTROLYTE eGFR 69 10/05 Result Comment: The eGFR is calculated using the CKD-EPI formula. In most young, healthy individuals the eGFR will be >90 mL/ min/1.73m2. The eGFR declines with age. An eGFR of 60-89 may be normal in [facility] mL/min/1.7 some populations, particularly the elderly, for whom the CKD-EPI formula has not been extensively validated. Use of the eGFR is not recommended in the following populations: [address] Individuals with unstable creatinine concentrations, including patients and those with serious co-morbid conditions. Patients with extremes in muscle mass or diet. The data above are obtained from the National Kidney Disease Education Program (NKDEP) which additionally recommends that when the eGFR is used in patients with extremes of body mass index for purposes of drug dosing, the eGFR should be multiplied by the estimated BMI. ELECTROLYTE BUN 24 mg/dL 7 - 22 10/[address] ELECTROLYTE Creatinine 0.98 mg/dL 0.50 - 10/05 [facility] Lvl 1.40 /2015 [facility] ELECTROLYTE Glucose Lvl 104 mg/dL 70 - 99 10/05 [facility]2015 [facility] ELECTROLYTE Sodium Lvl 140 meq/L 135 - 145 10/05 S /2015 [facility] HEMATOLOGY RDW 12.7 % 11.5 - 10/05 [place] 14.5 [facility] HEMATOLOGY MPV 8.6 fL 7.4 - 10.4 10/05 [facility] HEMATOLOGY Platelet 181 K/CMM 133 - 450 10/05 [facility] HEMATOLOGY MCHC 33.8 g/dL 32.0 - 10/05 [place] 36.0 /2015 [facility] HEMATOLOGY MCH 31.2 pg 27.0 - 10/05 [place] 31.0 [facility] HEMATOLOGY MCV 92.4 fL 80.0 - 10/05 [place] 94.0 /2015 [facility] HEMATOLOGY Hct 31.3 % 42.0 - 10/05 [place] 54.0 /2015 [facility] HEMATOLOGY Hgb 10.6 g/dL 14.0 - 10/05 [place] 18.0 [facility] HEMATOLOGY RBC 3.39 M/CMM 4.70 - 10/05 [place] 6.10 /2015 [facility] HEMATOLOGY WBC 8.9 K/CMM 3.7 - 10.4 10/05 /2015 [facility] HEMATOLOGY Eosinophils 0.7 K/CMM 0.0 - 0.5 10/05 [place] # /2016 [facility] HEMATOLOGY Lymphocytes 6.7 % 20.0 - 10/05 [place] 40.0 /2016 [facility] HEMATOLOGY Monocytes 5.6 % 2.0 - 12.0 10/05 [facility] HEMATOLOGY Basophils 0.2 % 0.0 - 1.0 10/05 [facility] HEMATOLOGY Eosinophils 8.6 % 0.0 - 4.0 10/05 /2015 [facility] HEMATOLOGY Segs-Bands # 6.5 K/CMM 1.5 - 8.1 10/05 /2015 [facility] HEMATOLOGY Monocytes # 0.5 K/CMM 0.0 - 0.8 10/05 [facility] HEMATOLOGY Lymphocytes 0.6 K/CMM 1.0 - 5.5 10/05 [place] # /2016 [facility] HEMATOLOGY Segs 78.9 % 45.0 - 10/05 [place] 75.0 2016 [facility] PARATHYROID Ca Ion WB 1.08 1.05 - 10/05 [facility] PROFILE mMol/L 1.25 /2015 [facility] PARATHYROID Ca Norm WB 1.08 1.05 - 10/05 [facility] PROFILE mMol/L 1. [facility] URINE AND UA Sq Epi Rare /LPF Few /LPF 10/04 [facility] URINE AND UA RBC None Seen 0 - 2 10/04 [facility] (10/04/16 10:46 AM) [place] URINE AND UA Bacteria Occasional None Seen 10/04 [facility] /HPF /HPF /2015 [facility] URINE AND UA WBC None Seen None Seen 10/04 [facility] (10/04/16 10:46 AM) [place] URINE AND UA Mucus None Seen None Seen 10/04 [facility] (10/04/16 10:46 AM) [place] URINE AND UA 0.2 EU/dL 0.1 - 1.0 10/04 [facility] Urobilinogen [facility] URINE AND UA Blood Negative Negative 10/04 [facility] (10/04/16 10:46 AM) [place] URINE AND UA Bili Negative Negative 10/04 [facility] *NA* [place] (10/04/16 10:46 AM) URINE AND UA Nitrite Negative Negative 10/04 [facility] (10/04/16 10:46 AM) [place] URINE AND UA Leuk Est Negative Negative 10/04 [facility] (10/04/16 10:46 AM) [place] URINE AND UA Turbidity Clear Clear 10/04 [facility] (10/04/16 10:46 AM) [place] URINE AND UA Color Yellow Yellow 10/04 [facility] *NA* [place] (10/04/16 10:46 AM) URINE AND UA Spec Grav 1.010 <=1.030 10/04 [facility] URINE AND UA Ketones Negative Negative 10/04 [facility] mg/dL mg/dL [facility] URINE AND UA Glucose Negative Negative 10/04 [facility] mg/dL mg/dL [facility] URINE AND UA Protein Negative Negative 10/04 [facility] mg/dL mg/dL [facility] URINE AND UA pH 8.0 5.0 - 8.0 10/04 [facility] CARDIAC Troponin-I null 0.00 - 10/04 [facility] ENZYMES 0.40 /2015 [facility] CHEM PANEL Lipase Lvl 69 unit/L 73 - 393 10/04 [facility] CHEM PANEL Bili Direct 0.1 mg/dL 0.0 - 0.3 10/04 [facility]2015 [facility] CHEM PANEL Bili Total 0.4 mg/dL 0.2 - 1.3 10/04 [facility]2015 [facility] CHEM PANEL Alk Phos 127 unit/L 39 - 136 10/04 [facility]2015 [facility] CHEM PANEL AST 13 unit/L 0 - 37 10/04 [facility]2015 [facility] CHEM PANEL Albumin Lvl 3.4 g/dL 3.5 - 5.0 10/04 [facility] CHEM PANEL ALT 10 unit/L 0 - 65 10/04 [facility]2015 [facility] CHEM PANEL Total 6.6 g/dL 6.4 - 8.4 10/04 [facility] CHEM PANEL Globulin 3.2 g/dL 2.7 - 4.2 10/04 [facility]2015 [facility] CHEM PANEL Bili 0.3 mg/dL 0.0 - 1.0 10/04 [facility] CHEM PANEL A/G Ratio 1.1 0.7 - 1.6 10/04 [facility] HEMATOLOGY PTT 30.3 s 22.9 - 10/04 [facility] 35.8 [facility] HEMATOLOGY PT 14.9 s 12.0 - 10/04 [facility] 14.7 [facility] HEMATOLOGY INR 1.15 0.85 - 10/04 [facility] 1.17 [facility] HEMATOLOGY Plt Morph Normal 10/04 [facility] (10/04/16 9:05 AM) [place] HEMATOLOGY RBC Morph Normal 10/04 [facility] (10/04/16 9:05 AM) [place] Abdomen Abdomen EXAM: XR ABDOMEN 2 VIEWS 10/04 - [facility] Compl w Compl w - [facility] decub/erect decub/erect Center views DX views DX DATE: 10/04/2016 0959 hours Read by: Bharath Rothman MD Dictated Date/time: 10/04/16 10:15 Electronically Signed by: Bharath Rothman MD 10/04/16 10:20 FINAL REPORT INDICATION: Abdominal distension ADDITIONAL INFORMATION: None. COMPARISON: 08/19/2015 TECHNIQUE: Decubitus and supine abdominal radiographs. FINDINGS: Lines, tubes and hardware: Surgical clips project over the right hemiabdomen, unchanged. Lower thorax: Reticular opacities in the lung bases are noted, further evaluated on same-day chest radiograph. Bowel: Small bowel loops are seen in the central abdomen filled with gas without dilation. Positive contrast is noted within the descending and rectosigmoid colon. No free air. No differential air fluid levels. Calcifications: Extensive atherosclerosis is again noted. 8 mm ovoid densities project over the left paraspinal region and infrahepatic regions, possibly representing ingested material. Bones: No acute fracture or dislocation. Advanced degenerative disc disease , mild levoscoliosis, and multilevel osteophyte formation of the thoracolumbar spine is again noted. IMPRESSION: No obstruction or free air. Chest 2 Chest 2 EXAM: XR CHEST 2 VIEWS 10/04 - [place] views DX views DX /2015 - [facility] DATE: 10/04/2016 0952 hours Read by: Bharath Rothman MD Dictated Date/time: 10/04/16 10:21 Electronically Signed by: Bharath Rothman MD 10/04/16 10:31 FINAL REPORT INDICATION: Coughing COMPARISON: 07/09/2016 TECHNIQUE: PA and lateral chest radiographs FINDINGS: Lines and tubes: None. Lungs and pleura: Persistent reticular opacities in the lung bases similar to prior exam with apparent worsening interstitial opacities versus emphysematous change within the mid and upper lungs. No pneumothorax identified. Heart and mediastinum: The heart size and mediastinal contours are unchanged. Bones: No acute bony abnormality or significant interval skeletal change is identified. IMPRESSION: Worsening diffuse interstitial opacities versus emphysematous change in the mid and upper lungs since 07/09/2016. Findings may represent atypical infection/aspiration superimposed on chronic interstitial lung disease/emphysema. Further evaluation with CT chest may be obtained as clinically warranted. Chest 2 Chest 2 EXAM: XR CHEST 2 VIEWS 07/09 - [facility] views DX views DX /2015 - [facility] DATE: 07/09/2016 10:55 AM CDT Read by: Dany Owens MD Dictated Date/time: 07/09/16 11:45 Electronically Signed by: Dany Owens MD 07/09/16 11:49 FINAL REPORT INDICATION: wt loss, vomiting COMPARISON: Chest radiograph dated 06/04/2016 TECHNIQUE: PA and lateral chest radiographs FINDINGS: I poor inflation of the lungs suggestive of chronic emphysema. There is volume loss of the right lung with reticular opacities in the right lung base slightly increased from the prior study. The left colleen ng is well expanded with mild reticular opacity in the left lung base, unchanged. Pulmonary vascularity is normal. The heart size is normal. Tortuous descending thoracic aorta is noted. No acute osseous abnormality is identified. IMPRESSION: 1. Findings suggestive of chronic emphysema. 2. Reticular opacities in the lung bases likely represent areas of scarring. There is mild increase in prominence of reticular right lung base opacities, developing consolidation is not excluded. 3. Chronic volume loss of the right lung. Chest 2 Chest 2 EXAM: XR CHEST 2 VIEWS 06/04 - [facility] views DX views DX /2015 - [facility] DATE: 06/04/2016 10:18 AM CDT Read by: Kaz Oneil MD Dictated Date/time: 06/04/16 10:44 Electronically Signed by: Kaz Oneil MD 06/04/16 10:48 FINAL REPORT INDICATION: pneumonia COMPARISON: PA and lateral chest x-rays 12/07/2012 and AP view of the chest of 08/17/2015 TECHNIQUE: PA and lateral chest radiographs FINDINGS: Exam is slightly limited by imaging in a wheelchair. There is slight volume loss in the right lung with some increased opacity over the lingular segment of the right upper lobe medially likely from atelectasis and/or pneumonia. Minimal areas of scarring are seen in the left lung base, stable from prior exams.. Brittany and pulmonary vasculature are normal. Cardiac silhouette is normal in size. There is tortuosity of the descending thoracic aorta with atherosclerotic calcifications in the aortic arch, stable from the prior exams. No acute bony abnormality is identified. Stable tendon anchors are seen within the right humeral head. Multilevel spondylosis is again seen in the thoracic spine. IMPRESSION: 1. Mild increased opacity over the medial aspect of the lingular segment of the left upper lobe, with associated volume loss in the right hemithorax, suspicious for atelectasis and/or pneumonia. Follow- up chest x-ray following appropriate treatment in several weeks is recommended to ensure resolution and to exclude other underlying pathology. 2. Stable scarring in the left lung base. 3. Stable aortic tortuosity and atherosclerotic vascular disease. 4. Stable degenerative changes in the thoracic spine and postoperative changes in the right shoulder. MOLECULAR C difficile Negative Negative 08/22 [facility] DIAGNOSTIC [facility] (08/22/15 7:43 AM) [place] CHEM PANEL eGFR 77 08/21 Result Comment: The eGFR is calculated using the CKD-EPI formula. In most young, healthy individuals the eGFR will be >90 mL/ min/1.73m2. The eGFR declines with age. An eGFR of 60-89 may be normal in [facility] mL/min/1.7 some populations, particularly the elderly, for whom the CKD-EPI formula has not been extensively validated. Use of the eGFR is not recommended in the following populations: [address] Individuals with unstable creatinine concentrations, including patients and those with serious co-morbid conditions. Patients with extremes in muscle mass or diet. The data above are obtained from the National Kidney Disease Education Program (NKDEP) which additionally recommends that when the eGFR is used in patients with extremes of body mass index for purposes of drug dosing, the eGFR should be multiplied by the estimated BMI. CHEM PANEL CO2 25 meq/L 24 - 32 08/[address] CHEM PANEL Calcium Lvl 8.3 mg/dL 8.5 - 10.5 08/[address] CHEM PANEL Sodium Lvl 140 meq/L 135 - 145 08/[address] CHEM PANEL Creatinine 0.9 mg/dL 0.5 - 1.4 08/21 [facility] [address] [place] [address] CHEM PANEL Chloride Lvl 107 meq/L 95 - 109 08/[address] CHEM PANEL Potassium 3.4 meq/L 3.5 - 5.1 08/21 [facility] [address] [place] [address] CHEM PANEL Glucose Lvl 95 mg/dL 70 - 99 08/[address] CHEM PANEL BUN 9 mg/dL 7 - 22 08/[address] CHEM PANEL AGAP 11.4 meq/L 10.0 - 08/21 [facility] 20.0 [facility] HEMATOLOGY MCHC 34.0 g/dL 32.0 - 08/21 [facility] 36.0 [facility] HEMATOLOGY RDW 13.7 % 11.5 - 08/21 [facility] 14.5 [facility] HEMATOLOGY MPV 8.2 fL 7.4 - 10.4 08/[address] HEMATOLOGY Platelet 188 K/CMM 133 - 450 08/21 [facility] HEMATOLOGY MCV 95.9 fL 80.0 - 08/21 [facility] 94.0 /2014 [facility] HEMATOLOGY Hgb 11.2 g/dL 14.0 - 08/21 18.0 [facility] HEMATOLOGY Hct 32.9 % 42.0 - 08/21 [facility] 54.0 /2014 [facility] HEMATOLOGY RBC 3.43 M/CMM 4.70 - 08/21 6.10 [facility] HEMATOLOGY MCH 32.7 pg 27.0 - 08/21 31.0 [facility] HEMATOLOGY WBC 4.4 K/CMM 3.7 - 10.4 08/[address] CHEM PANEL A/G Ratio 1.2 0.7 - 1.6 08/[address] CHEM PANEL Globulin 2.5 g/dL 2.0 - 4.0 08/[address] CHEM PANEL AGAP 9.5 meq/L 10.0 - 08/20 [facility] 20.0 [facility] CHEM PANEL B/C Ratio 15 6 - 25 08/[address] CHEM PANEL Total 5.4 g/dL 6.4 - 8.4 08/20 [facility] CHEM PANEL Chloride Lvl 109 meq/L 95 - 109 08/[address] CHEM PANEL Calcium Lvl 8.3 mg/dL 8.5 - 10.5 08/[address] CHEM PANEL Albumin Lvl 2.9 g/dL 3.5 - 5.0 08/[address] CHEM PANEL CO2 27 meq/L 24 - 32 08/[address] CHEM PANEL Bili Total 0.2 mg/dL 0.2 - 1.3 08/20 2014 [facility] CHEM PANEL ALT 18 unit/L 0 - 65 08/[address] CHEM PANEL Alk Phos 89 unit/L 39 - 136 08/[address] CHEM PANEL AST 15 unit/L 0 - 37 08/[address] CHEM PANEL eGFR 68 08/20 Result Comment: The eGFR is calculated using the CKD-EPI formula. In most young, healthy individuals the eGFR will be >90 mL/ min/1.73m2. The eGFR declines with age. An eGFR of 60-89 may be normal in [facility] mL/min/1.7 /2014 some populations, particularly the elderly, for whom the CKD-EPI formula has not been extensively validated. Use of the eGFR is not recommended in the following populations: [address] Individuals with unstable creatinine concentrations, including patients and those with serious co-morbid conditions. Patients with extremes in muscle mass or diet. The data above are obtained from the National Kidney Disease Education Program (NKDEP) which additionally recommends that when the eGFR is used in patients with extremes of body mass index for purposes of drug dosing, the eGFR should be multiplied by the estimated BMI. CHEM PANEL Potassium 3.5 meq/L 3.5 - 5.1 08/20 [facility] CHEM PANEL BUN 15 mg/dL 7 - 22 08/20 [facility] CHEM PANEL Sodium Lvl 142 meq/L 135 - 145 08/20 [facility]2014 [facility] CHEM PANEL Creatinine 1.0 mg/dL 0.5 - 1.4 08/20 [facility] CHEM PANEL Glucose Lvl 95 mg/dL 70 - 99 08/20 [facility] CHEM PANEL Phosphorus 3.1 mg/dL 2.5 - 4.5 08/20 [facility] CHEM PANEL Magnesium 1.8 mg/dL 1.8 - 2.4 08/20 [facility] HEMATOLOGY RDW 13.5 % 11.5 - 08/20 14.5 [facility] HEMATOLOGY Platelet 206 K/CMM 133 - 450 08/20 [facility] HEMATOLOGY MPV 8.4 fL 7.4 - 10.4 08/20 [facility] HEMATOLOGY RBC 3.33 M/CMM 4.70 - 08/20 [place] 6.10 [facility] HEMATOLOGY WBC 5.3 K/CMM 3.7 - 10.4 08/20 [facility] HEMATOLOGY MCHC 33.8 g/dL 32.0 - 08/20 36.0 [facility] HEMATOLOGY Hgb 10.9 g/dL 14.0 - 08/20 18.0 [facility] HEMATOLOGY Hct 32.1 % 42.0 - 08/20 [place] 54.0 [facility] HEMATOLOGY MCV 96.4 fL 80.0 - 08/20 [facility] [place] 94.0 /2014 [facility] HEMATOLOGY MCH 32.6 pg 27.0 - 08/20 [place] 31.0 /2014 [facility] HEMATOLOGY Eosinophils 0.3 K/CMM 0.0 - 0.5 08/20 [facility] # /2014 [facility] HEMATOLOGY Eosinophils 5.4 % 0.0 - 4.0 08/20 /2014 [facility] HEMATOLOGY Lymphocytes 0.9 K/CMM 1.0 - 5.5 08/20 [facility] /2014 [facility] HEMATOLOGY Basophils 0.8 % 0.0 - 1.0 08/20 /2014 [facility] HEMATOLOGY Segs-Bands # 3.7 K/CMM 1.5 - 8.1 08/20 2014 [facility] HEMATOLOGY Monocytes # 0.4 K/CMM 0.0 - 0.8 08/20 /2014 [facility] HEMATOLOGY Segs 70.0 % 45.0 - 08/20 [facility] 75.0 /2014 [facility] HEMATOLOGY Lymphocytes 16.4 % 20.0 - 08/20 [place] 40.0 /2014 [facility] HEMATOLOGY Monocytes 7.4 % 2.0 - 12.0 08/20 /[address] [place] [address] URINE AND UA <=1.0 0.1 - 1.0 08/20 [facility] Urobilinogen mg/dL /2014 [facility] URINE AND UA Sq Epi None Seen 08/20 [facility] /2014 [facility] URINE AND UA Mucus Few /LPF None Seen 08/20 [facility] /LPF /[address] [place] [address] URINE AND UA Amorph Occasional None Seen 08/20 [facility] [place] /HPF /HPF /2014 [facility] URINE AND UA Leuk Est Moderate Negative 08/20 [facility] *ABN* [place] (08/20/15 2:54 AM) URINE AND UA Blood Negative Negative 08/20 [facility] (08/20/15 2:54 AM) [place] URINE AND UA Nitrite Negative Negative 08/20 [facility] (08/20/15 2:54 AM) [place] URINE AND UA Bacteria Occasional None Seen 08/20 [facility] STOOL /HPF /HPF /2014 [facility] URINE AND UA RBC 5 /HPF 0 - 2 08/20 [facility] /[address] [place] [address] URINE AND UA WBC 20 /HPF 0 - 5 08/20 [facility] /2014 [facility] URINE AND UA Glucose Negative Negative 08/20 [facility] [place] STOOL mg/dL mg/dL /2014 [facility] URINE AND UA Protein Negative Negative 08/20 [facility] mg/dL mg/dL /2014 [facility] URINE AND UA Ketones Negative Negative 08/20 [facility] mg/dL mg/dL [facility] URINE AND UA pH 7.5 5.0 - 8.0 08/20 [facility] URINE AND UA Bili Negative Negative 08/20 [facility] *NA* [place] (08/20/15 2:54 AM) URINE AND UA Color Yellow Yellow 08/20 [facility] *NA* [place] (08/20/15 2:54 AM) URINE AND UA Turbidity Clear Clear 08/20 [facility] (08/20/15 2:54 AM) [place] URINE AND UA Spec Grav 1.006 <=1.030 08/20 [facility] Abdomen AP Abdomen AP EXAM: XR ABDOMEN 1 VIEW 08/19 - [facility] DX DX /2014 - [facility] This report was dictated by a [place] Worker/Fellow. I have personally reviewed the images as Center well as the Resident's interpretation and agree with the findings. DATE: 08/19/2015 at 2208 hours. Read by: Rozina Concepcion MD Resident: Rozina Concepcion MD Dictated Date/time: 08/20/15 10:27 Electronically Signed by: Alberto Conte MD 08/20/15 15:20 FINAL REPORT INDICATION: Vomiting. ADDITIONAL INFORMATION: None. COMPARISON: 08/17/2015. TECHNIQUE: Three AP radiographs of the abdomen provided for interpretation. FINDINGS: Cholecystectomy clips are seen overlying the right upper quadrant. Extensive calcification is seen in the splenic artery. Lower thorax is unremarkable where visualized. The bowel gas pattern is nonobstructive. No abnormal mass or organomegaly seen. No suspicious calcifications found. Unchanged degenerative findings of the spine. IMPRESSION: No significant interval change from prior examination. CHEM PANEL B/C Ratio 15 6 - 25 08/17 [facility] CHEM PANEL AGAP 8.9 meq/L 10.0 - 08/17 [facility] 20.0 /2014 [facility] CHEM PANEL Globulin 3.2 g/dL 2.0 - 4.0 08/17 [facility] CHEM PANEL A/G Ratio 1.1 0.7 - 1.6 08/17 [facility]2015 [facility] CHEM PANEL eGFR 61 08/17 Result Comment: The eGFR is calculated using the CKD-EPI formula. In most young, healthy individuals the eGFR will be >90 mL/ min/1.73m2. The eGFR declines with age. An eGFR of 60-89 may be normal in [facility] mL/min/1. some populations, particularly the elderly, for whom the CKD-EPI formula has not been extensively validated. Use of the eGFR is not recommended in the following populations: [address] Individuals with unstable creatinine concentrations, including patients and those with serious co-morbid conditions. Patients with extremes in muscle mass or diet. The data above are obtained from the National Kidney Disease Education Program (NKDEP) which additionally recommends that when the eGFR is used in patients with extremes of body mass index for purposes of drug dosing, the eGFR should be multiplied by the estimated BMI. CHEM PANEL Calcium Lvl 10.2 mg/dL 8.5 - 10.5 08/17 [address] [address] CHEM PANEL Chloride Lvl 102 meq/L 95 - 109 08/[address] CHEM PANEL Potassium 4.9 meq/L 3.5 - 5.1 08/[address] CHEM PANEL BUN 16 mg/dL 7 - 22 08/[address] CHEM PANEL CO2 31 meq/L 24 - 32 08/[address] CHEM PANEL Sodium Lvl 137 meq/L 135 - 145 08/[address] CHEM PANEL Creatinine 1.1 mg/dL 0.5 - 1.4 08/[address] CHEM PANEL Glucose Lvl 102 mg/dL 70 - 99 08/[address] CHEM PANEL ALT 10 unit/L 0 - 65 08/[address] CHEM PANEL Bili Total 0.4 mg/dL 0.2 - 1.3 08/[address] CHEM PANEL Alk Phos 109 unit/L 39 - 136 08/[address] CHEM PANEL AST 19 unit/L 0 - 37 08/[address] CHEM PANEL Albumin Lvl 3.5 g/dL 3.5 - 5.0 08/[address] CHEM PANEL Total 6.7 g/dL 6.4 - 8.4 08/17 Protein [facility] CHEM PANEL Lipase Lvl 147 unit/L 73 - 393 08/17 [facility] HEMATOLOGY Basophils # 0.1 K/CMM 0.0 - 0.2 08/17 [facility] HEMATOLOGY Eosinophils 0.2 K/CMM 0.0 - 0.5 08/17 [place] # /2014 [facility] HEMATOLOGY Segs-Bands # 5.4 K/CMM 1.5 - 8.1 08/17 [facility] HEMATOLOGY Basophils 1.0 % 0.0 - 1.0 08/17 /2014 [facility] HEMATOLOGY Monocytes # 0.5 K/CMM 0.0 - 0.8 08/17 [facility] HEMATOLOGY Lymphocytes 1.1 K/CMM 1.0 - 5.5 08/17 [place] # /2014 [facility] HEMATOLOGY Eosinophils 2.4 % 0.0 - 4.0 08/17 [facility] HEMATOLOGY Monocytes 7.5 % 2.0 - 12.0 08/17 [facility] HEMATOLOGY Lymphocytes 15.1 % 20.0 - 08/17 [place] 40.0 [facility] HEMATOLOGY Segs 74.0 % 45.0 - 08/17 [place] 75.0 [facility] HEMATOLOGY RDW 14.0 % 11.5 - 08/17 [place] 14. [facility] HEMATOLOGY MCHC 33.8 g/dL 32.0 - 08/17 [place] 36.0 /2014 [facility] HEMATOLOGY WBC 7.3 K/CMM 3.7 - 10.4 08/17 [facility] HEMATOLOGY MCH 32.9 pg 27.0 - 08/17 [place] 31.0 [facility] HEMATOLOGY Hct 35.4 % 42.0 - 08/17 [place] 54.0 [facility] HEMATOLOGY MCV 97.3 fL 80.0 - 08/17 [place] 94.0 [facility] HEMATOLOGY Platelet 222 K/CMM 133 - 450 08/17 [facility] HEMATOLOGY MPV 8.2 fL 7.4 - 10.4 08/17 [facility] HEMATOLOGY Hgb 12.0 g/dL 14.0 - 08/17 [place] 18.0 [facility] HEMATOLOGY RBC 3.64 M/CMM 4.70 - 08/17 [facility] [place] 6.10 [facility] URINE AND UA Sq Epi None Seen Few 08/17 [facility] STOOL [facility] (08/17/15 12:45 PM) Center URINE AND UA WBC >100 /HPF None Seen 08/17 [facility] STOOL /HPF [facility] URINE AND UA Bacteria Moderate None Seen 08/17 [facility] /HPF /HPF /2014 [facility] URINE AND UA RBC 3-5 /HPF 0 - 2 08/17 [facility] URINE AND UA Turbidity Cloudy Clear 08/17 [facility] *ABN* [place] (08/17/15 12:45 PM) URINE AND UA pH 7.5 5.0 - 8.0 08/17 [facility] URINE AND UA Glucose Negative Negative 08/17 [facility] (08/17/15 12:45 PM) [place] URINE AND UA Protein Negative Negative 08/17 [facility] (08/17/15 12:45 PM) [place] URINE AND UA Spec Grav 1.010 <=1.030 08/17 [facility] URINE AND UA Color Yellow Yellow 08/17 [facility] *NA* [place] (08/17/15 12:45 PM) URINE AND UA Blood Negative Negative 08/17 [facility] (08/17/15 12:45 PM) [place] URINE AND UA Bili Negative Negative 08/17 [facility] *NA* [place] (08/17/15 12:45 PM) URINE AND UA Ketones Negative Negative 08/17 [facility] *NA* [place] (08/17/15 12:45 PM) URINE AND UA 0.2 EU/dL 0.1 - 1.0 08/17 [facility] Urobilinogen /2014 [facility] URINE AND UA Leuk Est Large Negative 08/17 [facility] STOOL Medical *ABN* [place] (08/17/15 12:45 PM) URINE AND UA Nitrite Negative Negative 08/17 [facility] (08/17/15 12:45 PM) Center ED ED EXAM: CT ABDOMEN AND PELVIS WITH IV CONTRAST 08/17 - [facility] Abdomen/Pel Abdomen/Pelv /2014 - Medical vis IV is IV This report was dictated by a [employer] Worker/ Fellow. I have personally reviewed the images as Center contrast contrast well as the Resident's interpretation and agree with the findings. only CT only CT DATE: 08/10/2015 at 1312 hours. Read by: Rozina Concepcion MD Resident: Rozina Concepcion MD Dictated Date/time: 08/18/15 08:34 Electronically Signed by: Hudson Obando MD 08/18/15 13:53 FINAL REPORT INDICATION: Acute abdominal pain. COMPARISON: 08/02/2015. TECHNIQUE: Protocol: Helical acquisition of the abdomen and pelvis was obtained from the lung bases to the symphysis pubis after uneventful administration of 94.9 cc of Omnipaque 350 intravenous contras t in the venous and delayed phases of contrast enhancement. Axial, sagittal and coronal images were interpreted. FINDINGS: Subsegmental atelectasis and fibrotic changes are seen at the dependent portions of the lungs bilaterally. Calcifications are appreciated in all 3 coronary arteries. The left atrium is enlarged. ABDOMEN: Multiple, scattered, too small to characterize hypodense lesions are seen throughout the liver. These are stable in appearance from the previous exam. The gallbladder has been surgically removed with balderas rgical clips within the gallbladder fossa. The pancreas is normal in appearance with mild fatty replacement seen the body and tail. Stomach normal. The previously seen small bowel obstruction has resolved. The small bowel and colon are normal in caliber. The persistent ventral hernia is seen containing loops of bowel. No bowel wall thickening, fat stranding or edema is seen to suggest strangulation or incarceration. PELVIS: Kidneys, collecting systems and ureters demonstrate normal concentration and excretion of contrast into the bladder. Interval removal the previously seen calcified bladder calculi. Dystrophic calcifica tion is seen in the right lateral wall of the bladder representing bladder diverticula. Prostate is significantly enlarged measuring 7 cm in transverse diameter. Eventration of the prostate into the chantel dder is noted. Bladder wall thickening is noted most likely indicating a combination of bladder distention and bladder hypertrophy from outlet obstruction secondary to prostatomegaly. Ossifications are seen throughout the infrarenal abdominal aorta as well as the common iliac and common femoral arteries. An ectatic infrarenal abdominal aorta is noted measuring 2.5 cm. Stable from pre vious exam. Abdominal and pelvic lymph nodes are unremarkable. No retroperitoneal abnormalities. The osseous structures demonstrate diffuse degenerative changes, but no worrisome lesions. No subcutaneous or soft tissue abnormalities IMPRESSION: 1. Resolution of previously noted small bowel obstruction. 2. Persistent ventral hernia containing loops of bowel without evidence of strangulation or incarceration. 3. Severe prostatomegaly evidence of bladder outlet obstruction. 4. 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 5. Removal of previously seen bladder calculi. 6. Dystrophic calcification within a bladder diverticulum along the right lateral wall of the bladder. 7. Multiple, scattered too small to characterize hypodense lesions within the liver. Abdomen AP Abdomen AP EXAM: XR ABDOMEN 08/17 [facility] DX /2014 - Medical 2. 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 This report was dictated by a [employer] Worker/Fellow. I have personally reviewed the images as Center well as the Resident's interpretation and agree with the findings. Read by: Gala Velazquez MD Resident: Gala Velazquez MD Dictated Date/time: 08/17/15 12:36 DATE: 08/17/2015 at 1222 hours Electronically Signed by: Alyssa Allen MD 08/17/15 15:16 FINAL REPORT INDICATION: Acute abdominal pain. COMPARISON: Small bowel series, 08/05/2015 TECHNIQUE: Two portable supine radiographs provided for interpretation. FINDINGS: Minimal right basilar subsegmental atelectasis again noted. A few mildly prominent gas distended loops of distal small bowel are noted without obstructive bowel gas pattern. Paucity of stool and air wit hin the colon. No organomegaly, mass, or abnormal calcifications. Extensive calcifications noted in the splenic artery. Patient is status post cholecystectomy. Thoracolumbar degenerative disc disease is present with lateral osteophyte complexes. No worrisome skeletal abnormality. IMPRESSION: 1. Nonobstructive bowel gas pattern. 2. Thoracolumbar degenerative disc disease. Chest 1view Chest 1view EXAM: XR CHEST 1 VIEW 08/17 [facility] DX /2014 - Medical This report was dictated by a [employer] Worker/Fellow. I have personally reviewed the images as Center well as the Resident's interpretation and agree with the findings. DATE: 08/17/2015 at 1220 hours Read by: Gala Velazquez MD Resident: Gala Velazquez MD Dictated Date/time: 08/17/15 12:43 Electronically Signed by: Alyssa Allen MD 08/17/15 15:16 FINAL REPORT INDICATION: Shortness of Breath COMPARISON: Chest radiograph, 12/29/2012. TECHNIQUE: 2 AP view of the chest DISCUSSION: Cardiomediastinal silhouette is normal. Lungs are well- inflated and clear of focal organized consolidative process. Scattered bibasilar subsegmental atelectasis is present. There is question able blunting of the right costophrenic sulcus. Patient is status post cholecystectomy. Mild degenerative changes noted within the thoracic spine and glenohumeral joints bilaterally. Sutural anchors noted in the right humeral head. IMPRESSION: 1. Scattered bibasilar linear subsegmental atelectasis. 2. Questional blunting of the right costophrenic sulcus may represent a small right pleural effusion. CHEM PANEL Phosphorus 3.6 mg/dL 2.5 - 4.5 08/[address] CHEM PANEL Magnesium 2.2 mg/dL 1.8 - 2.4 08/[address] ELECTROLYTE Sodium Lvl 139 meq/L 135 - 145 08/[address] ELECTROLYTE Creatinine 0.9 mg/dL 0.5 - 1.4 08/[address] ELECTROLYTE CO2 25 meq/L 24 - 32 08/[address] ELECTROLYTE Chloride Lvl 105 meq/L 95 - 109 08/[address] ELECTROLYTE Potassium 4.3 meq/L 3.5 - 5.1 08/[address] ELECTROLYTE eGFR 78 08/14 Result Comment: The eGFR is calculated using the CKD-EPI formula. In most young, healthy individuals the eGFR will be >90 mL/ min/1.73m2. The eGFR declines with age. An eGFR of 60-89 may be normal in [facility] mL/min/1.7 /2014 some populations, particularly the elderly, for whom the CKD-EPI formula has not been extensively validated. Use of the eGFR is not recommended in the following populations: [address] Individuals with unstable creatinine concentrations, including patients and those with serious co-morbid conditions. Patients with extremes in muscle mass or diet. The data above are obtained from the National Kidney Disease Education Program (NKDEP) which additionally recommends that when the eGFR is used in patients with extremes of body mass index for purposes of drug dosing, the eGFR should be multiplied by the estimated BMI. ELECTROLYTE Calcium Lvl 8.9 mg/dL 8.5 - 10.5 08/14 [facility] ELECTROLYTE AGAP 13.3 meq/L 10.0 - 08/14 [facility] . [facility] ELECTROLYTE Glucose Lvl 112 mg/dL 70 - 99 08/14 [facility] ELECTROLYTE BUN 16 mg/dL 7 - 08/14 [facility]2014 [facility] ANEMIA Vitamin B12 1089 pg/mL 254 - 1320 08/13 [facility] CHEM PANEL Phosphorus 3.0 mg/dL 2.5 - 4.5 08/13 [facility]2014 [facility] CHEM PANEL Magnesium 2.0 mg/dL 1.8 - 2.4 08/13 [facility] CHEM PANEL eGFR 81 08/13 Result Comment: The eGFR is calculated using the CKD-EPI formula. In most young, healthy individuals the eGFR will be >90 mL/ min/1.73m2. The eGFR declines with age. An eGFR of 60-89 may be normal in [facility] mL/min/1. some populations, particularly the elderly, for whom the CKD-EPI formula has not been extensively validated. Use of the eGFR is not recommended in the following populations: [address] Individuals with unstable creatinine concentrations, including patients and those with serious co-morbid conditions. Patients with extremes in muscle mass or diet. The data above are obtained from the National Kidney Disease Education Program (NKDEP) which additionally recommends that when the eGFR is used in patients with extremes of body mass index for purposes of drug dosing, the eGFR should be multiplied by the estimated BMI. CHEM PANEL Glucose Lvl 100 mg/dL 70 - 99 08/13 [facility] CHEM PANEL Creatinine 0.8 mg/dL 0.5 - 1.4 08/13 [facility] CHEM PANEL BUN 13 mg/dL - 08/13 [facility]2014 [facility] CHEM PANEL Chloride Lvl 107 meq/L 95 - 109 08/13 [facility]2014 [facility] CHEM PANEL CO2 20 meq/L 24 - 32 08/13 [facility]2014 [facility] CHEM PANEL Calcium Lvl 8.2 mg/dL 8.5 - 10.5 08/13 [facility]2014 [facility] CHEM PANEL AGAP 13.4 meq/L 10.0 - 08/13 [facility] CHEM PANEL Potassium 4.4 meq/L 3.5 - 5.1 08/13 [facility] CHEM PANEL Sodium Lvl 136 meq/L 135 - 145 08/13 [facility] CHEM PANEL Phosphorus 3.3 mg/dL 2.5 - 4.5 08/12 [facility]2014 [facility] CHEM PANEL eGFR 81 08/12 Result Comment: The eGFR is calculated using the CKD-EPI formula. In most young, healthy individuals the eGFR will be >90 mL/ min/1.73m2. The eGFR declines with age. An eGFR of 60-89 may be normal in [facility] mL/min/1.7 some populations, particularly the elderly, for whom the CKD-EPI formula has not been extensively validated. Use of the eGFR is not recommended in the following populations: [address] Individuals with unstable creatinine concentrations, including patients and those with serious co-morbid conditions. Patients with extremes in muscle mass or diet. The data above are obtained from the National Kidney Disease Education Program (NKDEP) which additionally recommends that when the eGFR is used in patients with extremes of body mass index for purposes of drug dosing, the eGFR should be multiplied by the estimated BMI. CHEM PANEL BUN 11 mg/dL 7 - 22 08/12 [facility] CHEM PANEL Creatinine 0.8 mg/dL 0.5 - 1.4 08/12 [facility] CHEM PANEL Glucose Lvl 113 mg/dL 70 - 99 08/12 [facility]2014 [facility] CHEM PANEL Potassium 4.1 meq/L 3.5 - 5.1 08/12 [facility] CHEM PANEL Chloride Lvl 106 meq/L 95 - 109 08/12 [facility] CHEM PANEL CO2 25 meq/L 24 - 32 08/12 [facility]2014 [facility] CHEM PANEL Calcium Lvl 8.6 mg/dL 8.5 - 10.5 08/12 [facility]2014 [facility] CHEM PANEL Sodium Lvl 139 meq/L 135 - 145 08/12 2014 [facility] CHEM PANEL AGAP 12.1 meq/L 10.0 - 08/12 [facility] CHEM PANEL Magnesium 1.9 mg/dL 1.8 - 2.4 08/12 [facility] HEMATOLOGY MCH 32.0 pg 27.0 - 08/12 [place] 31.0 /2014 [facility] HEMATOLOGY MCV 98.6 fL 80.0 - 08/12 [place] 94.0 /2014 [facility] HEMATOLOGY MCHC 32.4 g/dL 32.0 - 08/12 36.0 /2014 [facility] HEMATOLOGY RDW 13.7 % 11.5 - 08/12 14.5 [facility] HEMATOLOGY WBC 6.5 K/CMM 3.7 - 10.4 08/12 [facility] HEMATOLOGY RBC 3.42 M/CMM 4.70 - 08/12 6.10 /2014 [facility] HEMATOLOGY Hct 33.7 % 42.0 - 08/12 54.0 [facility] HEMATOLOGY Hgb 10.9 g/dL 14.0 - 08/12 18.0 [facility] HEMATOLOGY MPV 8.5 fL 7.4 - 10.4 08/12 [facility] HEMATOLOGY Platelet 179 K/CMM 133 - 450 08/12 [facility] HEMATOLOGY Basophils # 0.1 K/CMM 0.0 - 0.2 08/12 [facility] HEMATOLOGY Basophils 1.0 % 0.0 - 1.0 08/12 [facility] HEMATOLOGY Eosinophils 4.2 % 0.0 - 4.0 08/12 [facility] HEMATOLOGY Eosinophils 0.3 K/CMM 0.0 - 0.5 08/12 [facility] HEMATOLOGY Segs-Bands # 4.7 K/CMM 1.5 - 8.1 08/12 [facility] HEMATOLOGY Lymphocytes 1.1 K/CMM 1.0 - 5.5 08/12 [facility] HEMATOLOGY Monocytes # 0.4 K/CMM 0.0 - 0.8 08/12 [facility] HEMATOLOGY Lymphocytes 16.7 % 20.0 - 08/12 40.0 [facility] HEMATOLOGY Monocytes 6.0 % 2.0 - 12.0 08/12 [facility] HEMATOLOGY Segs 72.1 % 45.0 - 08/12 [place] 75.0 [facility] HEMATOLOGY Platelet 229 K/CMM 133 - 450 08/11 [facility] HEMATOLOGY WBC 10.6 K/CMM 3.7 - 10.4 08/11 /2014 [facility] HEMATOLOGY Hct 37.5 % 42.0 - 08/11 [place] 54.0 /2014 [facility] HEMATOLOGY Hgb 12.7 g/dL 14.0 - 08/11 [place] 18.0 [facility] HEMATOLOGY MCV 96.6 fL 80.0 - 08/11 [place] 94.0 /2014 [facility] HEMATOLOGY RBC 3.88 M/CMM 4.70 - 08/11 [place] 6.10 [facility] HEMATOLOGY RDW 13.4 % 11.5 - 08/11 [place] 14. [facility] HEMATOLOGY MCHC 33.7 g/dL 32.0 - 08/11 [place] 36.0 [facility] HEMATOLOGY MCH 32.6 pg 27.0 - 08/11 [place] 31.0 [facility] HEMATOLOGY MPV 9.0 fL 7.4 - 10.4 08/11 [facility] HEMATOLOGY WBC 5.8 K/CMM 3.7 - 10.4 08/09 [facility] HEMATOLOGY RBC 3.44 M/CMM 4.70 - 08/09 [place] 6.10 [facility] HEMATOLOGY Hgb 11.2 g/dL 14.0 - 08/09 [place] 18.0 [facility] HEMATOLOGY Hct 32.6 % 42.0 - 08/09 [place] 54.0 /2014 [facility] HEMATOLOGY MCV 94.8 fL 80.0 - 08/09 [place] 94.0 /2014 [facility] HEMATOLOGY MCH 32.7 pg 27.0 - 08/09 [place] 31.0 [facility] HEMATOLOGY Platelet 157 K/CMM 133 - 450 08/09 /2014 [facility] HEMATOLOGY MCHC 34.5 g/dL 32.0 - 08/09 [place] 36.0 [facility] HEMATOLOGY RDW 13.2 % 11.5 - 08/09 [place] 14. [facility] HEMATOLOGY MPV 8.7 fL 7.4 - 10.4 08/09 [facility] MOLECULAR C difficile Negative Negative 08/09 [facility] DIAGNOSTIC DNA [facility] (08/09/15 6:48 AM) Center CHEM PANEL Lactic Acid 1.1 mMol/L 0.5 - 2.2 08/06 [facility] Lvl [facility] Small bowel Small bowel EXAM: SMALL BOWEL SERIES 08/05 [facility] series DX series - [facility] This report was dictated by a [employer] Worker/Fellow. I have personally reviewed the images as Center well as the Resident's interpretation and agree with the findings. DATE: 08/05/2015 at 1530 hours. Read by: Maxx Haddad MD Resident: Maxx Haddad MD Dictated Date/time: 08/06/15 10:36 Electronically Signed by: Karthik Warner MD 08/06/15 11:50 FINAL REPORT INDICATION: Abdominal pain. COMPARISON: 12/19/2014. TECHNIQUE Frontal life underwriter and multiple spot post contrast radiographs were obtained. Approximate 300 mL of water soluble contrast was given. FINDINGS: The life underwriter radiographs demonstrates a nasogastric tube with tip overlying the distal gastric antrum. Cholecystectomy clips are seen. Splenic artery calcifications are noted. Degenerative changes are seen throughout the spine. The 20 and 40 minute postcontrast radiographs demonstrate mildly dilated loops of duodenum and proximal jejunum measuring up to 4 cm in diameter. After 60 minutes, the mid and distal small bowel loops a ppeared normal in caliber and demonstrate normal contour. 16 hours after administration of contrast, contrast is seen predominantly in the descending colon as well as the rectosigmoid colon. IMPRESSION: No evidence of obstruction. Contrast passes into the rectum after 16 hours. Abdomen AP Abdomen AP EXAM: XR ABDOMEN 1 VIEW 08/03 [facility] DATE: Aug 03, 2015 10:50:00 PM Read by: Hudson Obando MD Dictated Date/time: 08/04/15 09:22 Electronically Signed by: Hudson Obando MD 08/04/15 09:23 FINAL REPORT INDICATION: Tube placement/removal/reposition. COMPARISON: 08/03/2015 TECHNIQUE: One frontal radiograph provided for interpretation. FINDINGS: Transesophageal gastric suction tube has its sidehole in the fundal region and the tip in the gas distended body of the stomach. Mildly dilated gas distended small bowel loops are seen in the central abdomen.. No other significant changes. IMPRESSION: Tube positions as above. Interpreted by Hudson Obando MD. Abdomen AP Abdomen AP EXAM: XR ABDOMEN 1 VIEW 08/03 [facility] /2014 - [facility] DATE: Aug 03, 2015 12:30:00 PM Read by: Hudson Obando MD Dictated Date/time: 08/04/15 08:55 Electronically Signed by: Hudson Obando MD 08/04/15 08:57 FINAL REPORT INDICATION: Abdominal distention COMPARISON: 12/19/2014 TECHNIQUE: Supine radiographs provided for interpretation. DISCUSSION: Mildly dilated gas distended small bowel loops in central abdomen measuring up to 4.1 cm. Gas is seen in the rectum. Moderately gas distended stomach is seen. Tortuous splenic artery and abdominal aorti c vascular calcification seen. Multiple phleboliths in the pelvis. No abnormal mass or organomegaly seen. No pathologic calcifications found. No suspicious bony abnormalities. IMPRESSION: Mildly gas distended small bowel loops in the central abdomen suggest ileus. Interpreted by Hudson Obando MD. CHEM PANEL Lactic Acid 1.1 mMol/L 0.5 - 2.2 08/03 [facility] /2014 [facility] HEMATOLOGY Segs-Bands # 6.6 K/CMM 1.5 - 8.1 08/03 [facility] [address] [place] [address] HEMATOLOGY Monocytes # 0.3 K/CMM 0.0 - 0.8 08/03 [facility] [address] [place] [address] HEMATOLOGY Lymphocytes 0.4 K/CMM 1.0 - 5.5 08/03 [facility] /2014 [facility] HEMATOLOGY Eosinophils 0.1 % 0.0 - 4.0 08/03 [facility] [address] [place] [address] HEMATOLOGY Monocytes 4.7 % 2.0 - 12.0 08/03 [facility] [address] [place] [address] HEMATOLOGY Lymphocytes 6.0 % 20.0 - 08/03 [facility] 40.0 [facility] HEMATOLOGY Segs 88.8 % 45.0 - 08/03 [facility] 75.0 [facility] HEMATOLOGY Basophils 0.4 % 0.0 - 1.0 08/03 [facility] URINE AND UA Hyal Cast 0-2 0 - 2 08/02 [facility] /2014 [facility] (08/02/15 6:38 PM) [place] URINE AND UA Amorph Few /HPF None Seen 08/02 [facility] [place] /HPF /2014 [facility] URINE AND UA WBC 0-2 /HPF None Seen 08/02 [facility] /HPF /2014 [facility] URINE AND UA RBC 6-10 /HPF 0 - 2 08/02 [facility] URINE AND UA Bacteria Few /HPF None Seen 08/02 [facility] /HPF /2014 [facility] URINE AND UA Sq Epi Few /LPF Few /LPF 08/02 [facility] URINE AND UA Blood Negative Negative 08/02 [facility] (08/02/15 6:38 PM) [place] URINE AND UA 0.2 EU/dL 0.1 - 1.0 08/02 [facility] Urobilinogen /2014 [facility] URINE AND UA Leuk Est Negative Negative 08/02 [facility] (08/02/15 6:38 PM) [place] URINE AND UA Nitrite Negative Negative 08/02 [facility] [facility] (08/02/15 6:38 PM) [place] URINE AND UA Bili Negative Negative 08/02 [facility] *NA* Center (08/02/15 6:38 PM) URINE AND UA Ketones Negative Negative 08/02 [facility] *NA* [place] (08/02/15 6:38 PM) URINE AND UA Color Dark Yellow Yellow 08/02 [facility] (08/02/15 6:38 PM) [place] URINE AND UA Glucose Negative Negative 08/02 [facility] (08/02/15 6:38 PM) [place] URINE AND UA Protein Trace Negative 08/02 [facility] *ABN* [place] (08/02/15 6:38 PM) URINE AND UA Turbidity Slight Cloudy Clear 08/02 [facility] (08/02/15 6:38 PM) [place] URINE AND UA Spec Grav 1.010 <=1.030 08/02 [facility] /2014 [facility] URINE AND UA pH 8.0 5.0 - 8.0 08/02 [facility] CARDIAC Troponin-I 0.10 ng/mL 0.00 - 08/02 [facility] ENZYMES 0.40 [facility] CHEM PANEL Lactic Acid 3.0 mmol/L 0.5 - 2.2 08/02 [facility] CHEM PANEL A/G Ratio 1.1 0.7 - 1.6 08/02 [facility]2014 [facility] CHEM PANEL Globulin 3.3 g/dL 2.0 - 4.0 08/02 [facility]2014 [facility] CHEM PANEL B/C Ratio 17 6 - 25 08/02 [facility] CHEM PANEL Total 6.8 g/dL 6.4 - 8.4 08/02 [facility] Protein [facility] CHEM PANEL Albumin Lvl 3.5 g/dL 3.5 - 5.0 08/02 2014 [facility] CHEM PANEL ALT 14 unit/L 0 - 65 08/[address] CHEM PANEL AST 22 unit/L 0 - 37 08/[address] CHEM PANEL Bili Total 0.9 mg/dL 0.2 - 1.3 08/02 /[address] [place] [address] CHEM PANEL Alk Phos 91 unit/L 39 - 136 08/[address] CHEM PANEL Lipase Lvl 42 unit/L 73 - 393 08/[address] HEMATOLOGY Lymphocytes 0.7 K/CMM 1.0 - 5.5 08/02 [facility] # /2014 [facility] HEMATOLOGY Monocytes # 0.6 K/CMM 0.0 - 0.8 08/[address] HEMATOLOGY Basophils 0.2 % 0.0 - 1.0 08/02 /[address] [place] [address] HEMATOLOGY Eosinophils 0.2 % 0.0 - 4.0 08/[address] HEMATOLOGY Segs-Bands # 8.6 K/CMM 1.5 - 8.1 08/[address] HEMATOLOGY Lymphocytes 7.0 % 20.0 - 08/02 [facility] 40.0 [facility] HEMATOLOGY Segs 86.7 % 45.0 - 08/02 [facility] 75.0 [facility] HEMATOLOGY Monocytes 5.9 % 2.0 - 12.0 08/[address] HEMATOLOGY INR 1.10 0.85 - 08/02 [place] 1.17 [facility] HEMATOLOGY PT 14.5 s 12.0 - 08/02 [facility] 14.7 /2014 [facility] Brain wo Brain wo EXAM: CT HEAD WITHOUT CONTRAST 08/02 - [facility] contrast CT contrast CT /2014 - [facility] INDICATION: Confusion Read by: Estee Nunez MD Dictated Date/time: 08/02/15 14:41 Electronically Signed by: Estee Nunez MD 08/02/15 14:43 FINAL REPORT COMPARISON: MRI December 07, 2011 TECHNIQUE: Contiguous axial images of the brain are obtained from skull base to vertex without administration of intravenous contrast. DISCUSSION: There is no intracranial hemorrhage, space occupying mass or mass effect. No acute infarction. 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 Microangiopathic changes and volume loss are redemonstrated. Visualized paranasal sinuses and tympanomastoid cavities are clear. Calvarium is intact. IMPRESSION: No acute intracranial abnormality. Abdomen/Pel Abdomen/Pelv EXAM: CT ABDOMEN AND PELVIS WITHOUT IV CONTRAST 08/02 - [facility] vis wo IV is wo IV /2014 - Medical contrast CT contrast CT This report was dictated by a [place] Worker/Fellow. I have personally reviewed the images as Center well as the Resident's interpretation and agree with the findings. DATE: 08/02/2015 Read by: Florentin Wright MD Resident: Florentin Wright MD Dictated Date/time: 08/03/15 08:37 Electronically Signed by: Alejandra Seay MD 08/03/15 12:11 FINAL REPORT CLINICAL INDICATION: Vomiting. DLP: 817 mGycm TECHNIQUE: Volumetric acquisition of abdomen from the level of the domes of the diaphragm through the symphysis pubis using 5 mm collimation without the administration of intravenous and oral contrast. Axial, sagittal and coronal images were interpreted. COMPARISON: CT abdomen pelvis on 12/30/2012. FINDINGS: Lower chest: There is extensive bilateral interstitial fibrotic changes and groundglass opacities in the lung bases, progressed from prior study. The visualized heart demonstrates coronary artery calcifications. The re is a scattered small pericardial effusion. No evidence of pleural effusion. Abdomen and pelvis: The liver appears normal in shape, size, contour and attenuation. The gallbladder is surgically removed. There is no evidence of intra or extrahepatic biliary dilatation. The pancreas is partially atrophied. A focus of calcification in the region of tail. The spleen is normal in shape, size lesions. Punctate foci of calcification within splenic could represent vascular calcifications. There is mild thickening of the left adrenal gland. Noncontrast appearance of bilateral kidneys unremarkable. There are no evidence of calculus, focal lesions or hydroureteronephrosis. The urinary bladder is partially distended. There are foci of calcification layering along the posterior wall likely representing bladder calculi. They have increased compared to prior study. A small diverticula anteriorly is unchanged. There is severe prostatomegaly with significant intravesical component. The prostrate measures 5.7 x 6.5 x 6.8 cm. There are few punctate calcification within the prostate gland. The stomach is well distended, without wall thickening or masses. There is postsurgical changes from right hemicolectomy with an ileocolic anastomosis. The visualized small bowel is distended, with air fluid levels, with the jejunal loops measuring about 4 cm diameter. There is a 10.6 x 7.1 cm defect in the ventral wall, and between the recti muscles. The small bowel loops appear to herniate through t he defect. The efferent loop is partially decompressed with the transition zone at inferior level. Proximal to this level there is dilatation of the small bowel loops, compatible with a partial small teresita wel obstruction. There is also partial herniation of the transverse colon wall through the defect. There is no evidence of wall thickening, free fluid or pneumatosis to suggest ischemic changes. There is mild fat stranding in the left mesentery. There is no evidence of enlarged lymph nodes. No evidence of free air or fluid within the abdomen pelvis. There is extensive calcification of the abdominal aorta and iliac branches. Heavy calcifications also noted in the splenic artery. There is no evidence of significant stenosis or aneurysm formation. Extensive degenerative changes of the visualized thoracolumbar vertebra. There is multilevel degenerative changes with visualized fights, and multiple the space narrowing with vacuum phenomena. These are not significant changed from prior study. IMPRESSION: Ventral hernia with herniation of small bowel. There is partial small bowel obstruction at this level with transition point in the inferior aspect of hernia. Severe prostatomegaly with significant intravesical projection. There is interval increase in the amount of calcified bladder calculi. Unchanged small anterior bladder diverticulum. Unchanged heavy calcification of the aorta, the iliac arteries and the splenic artery. Minimally progressed bilateral basal interstitial changes. Dedicated high resolution chest CT would be helpful for further evaluation. Small bowel Small bowel EXAM: SMALL BOWEL SERIES 12/19 - OPID series DX series - [place] INDICATION: Intestinal obstruction Read by: Rosa Garcia MD Dictated Date/time: 12/19/14 16:58 Electronically Signed by: Rosa Garcia MD 12/19/14 17:04 FINAL REPORT TECHNIQUE: The patient ingested oral barium without difficulty, serial KUBs were obtained and the transit of barium was followed from the stomach into the colon. Fluoroscopy time. 0.7 minutes. FINDINGS: The life underwriter shows presence of cholecystectomy clips, splenic artery calcifications and phleboliths in the pelvis. Atherosclerotic calcifications affect the aorta. The mucosal pattern of the small bowel in the jejunum and the ileum is normal. Changes of right hemicolectomy are seen. The anastomosis between the ileum and the proximal transverse colon was not clearl y visualized. There is no delay in the transit of barium from the small bowel to the colon. No mass lesions, strictures, or other significant abnormality is noted. IMPRESSION: 1. Changes of right hemicolectomy are noted. 2. The contrast passes easily from the small bowel into the colon. No evidence of small bowel obstruction. 3. The anastomosis between the ileum and the proximal transverse colon was not clearly visualized. Stomach Stomach EXAM: GASTRIC EMPTYING STUDY: 11/18 [facility] emptying [place] emptying - [facility] INDICATION: Vomiting. Read by: Gabriel Dawson MD Dictated Date/time: 11/18/14 12:45 Electronically Signed by: Gabriel Dawson MD 11/18/14 12:49 FINAL REPORT TECHNIQUE: The patient was administered 0.7 millicuries of technetium-99m sulfur colloid labeled egg sandwich and orange juice. Sequential anterior and posterior projection images of the abdomen were ob tained for 90-minutes post administration. Three hour delayed images were obtained. Emptying curve was generated based on the region of the interest of the stomach based on the geometric mean. FINDINGS: There is normal tracer transit from stomach to intestine with normal stomach half emptying time of 83 minutes (Normal is less than 90 min). The stomach residual activity at 60 min is 80%, at 120 min is 33% and at 3 hour is less than 5%. No gastroesophageal reflux was noted throughout the examination. IMPRESSION: Normal gastric emptying. CHEMISTRY Troponin-I null 0.00 - 01/02 [facility] 0.40 /2012 [facility] CHEMISTRY Troponin-T null 0.000 - 01/02 [facility] 0.100 [facility] CHEMISTRY Total CK 39 unit/L 12 - 191 01/02 Normal [facility]2012 [facility] CHEMISTRY Phosphorus 1.9 mg/dL 2.5 - 4.5 01/02 LOW [facility] /2012 [facility] CHEMISTRY Magnesium 1.5 mg/dL 1.8 - 2.4 01/02 [facility] Lvl [facility] CHEMISTRY AGAP 17.5 meq/L 10.0 - 01/02 [facility] 20.0 /2012 [facility] CHEMISTRY eGFR 69 01/02 NA 1Result Comment: The eGFR is calculated using the CKD-EPI formula. In most young, healthy individuals the eGFR will be > 90 mL/min/1.73m2. The eGFR declines with age. An eGFR of 60-89 may be normal in [facility] mL/min/1.7 some populations, particularly the elderly, for whom the CKD-EPI formula has not been extensively validated. Use of the eGFR is not recommended in the following populations: [address] Individuals with unstable creatinine concentrations, including patients and those with serious co-morbid conditions. Patients with extremes in muscle mass or diet. The data above are obtained from the National Kidney Disease Education Program (NKDEP) which additionally recommends that when the eGFR is used in patients with extremes of body mass index for purposes of drug dosing, the eGFR should be multiplied by the estimated BMI. CHEMISTRY Chloride Lvl 102 meq/L 95 - 109 01/02 Normal [facility]2012 [facility] CHEMISTRY Potassium 3.5 meq/L 3.5 - 5.1 01/02 Normal [facility] CHEMISTRY Calcium Lvl 8.2 mg/dL 8.5 - 10.5 01/02 LOW [facility]2012 [facility] CHEMISTRY CO2 23 meq/L 24 - 32 01/02 [facility]2012 [facility] CHEMISTRY BUN 8 mg/dL 7 - 22 01/02 Normal [facility]2012 [facility] CHEMISTRY Sodium Lvl 139 meq/L 135 - 145 01/02 [facility]2012 [facility] CHEMISTRY Creatinine 1.0 mg/dL 0.5 - 1.4 01/02 [facility] CHEMISTRY Glucose Lvl 120 mg/dL 70 - 99 01/02 [place] 4Interpretive Data: Adult reference range values reflect the clinical guidelines [facility] of the [place] [employer]. [facility] HEMATOLOGY Monocytes # 0.5 K/CMM 0.0 - 0.8 01/02 Normal [facility] HEMATOLOGY Eosinophils 0.3 K/CMM 0.0 - 0.5 01/02 Normal [facility]2012 [facility] HEMATOLOGY Lymphocytes 0.7 K/CMM 1.0 - 5.5 01/02 LOW [facility]2012 [facility] HEMATOLOGY Monocytes 8.0 % 2.0 - 12.0 01/02 [facility]2012 [facility] HEMATOLOGY Eosinophils 4.3 % 0.0 - 4.0 01/02 [facility] HEMATOLOGY Basophils 0.3 % 0.0 - 1.0 01/02 [facility] HEMATOLOGY Segs-Bands # 5.3 K/CMM 1.5 - 8.1 01/02 [facility] HEMATOLOGY Lymphocytes 10.1 % 20.0 - 01/02 [facility] 40.0 /2012 [facility] HEMATOLOGY Segs 77.3 % 45.0 - 01/02 [facility] 75.0 /2012 [facility] HEMATOLOGY MCHC 35.2 g/dL 32.0 - 01/02 [facility] 36.0 /2012 [facility] HEMATOLOGY Platelet 135 K/CMM 133 - 450 01/02 [facility] HEMATOLOGY MPV 8.0 fL 7.4 - 10.4 01/02 [facility] HEMATOLOGY RDW 12.9 % 11.5 - 01/02 [facility] 14.5 /2012 [facility] HEMATOLOGY MCV 92.5 fL 80.0 - 01/02 [facility] 94.0 [facility] HEMATOLOGY MCH 32.6 pg 27.0 - 01/02 [facility] 31.0 /2012 [facility] HEMATOLOGY RBC 4.00 M/CMM 4.70 - 01/02 [facility] 6.10 /2012 [facility] HEMATOLOGY WBC 6.8 K/CMM 3.7 - 10.4 01/02 [facility] HEMATOLOGY Hct 37.0 % 42.0 - 01/02 [facility] 54.0 /2012 [facility] HEMATOLOGY Hgb 13.0 g/dL 14.0 - 01/02 [facility] 18.0 [facility] CHEMISTRY Magnesium 1.7 mg/dL 1.8 - 2.4 01/01 [facility] Lvl [facility] CHEMISTRY Phosphorus 2.6 mg/dL 2.5 - 4.5 01/01 Normal [facility] CHEMISTRY eGFR 79 01/01 NA 2Result Comment: The eGFR is calculated using the CKD-EPI formula. In most young, healthy individuals the eGFR will be > 90 mL/min/1.73m2. The eGFR declines with age. An eGFR of 60-89 may be normal in [facility] mL/min/1. some populations, particularly the elderly, for whom the CKD-EPI formula has not been extensively validated. Use of the eGFR is not recommended in the following populations: [address] Individuals with unstable creatinine concentrations, including patients and those with serious co-morbid conditions. Patients with extremes in muscle mass or diet. The data above are obtained from the National Kidney Disease Education Program (NKDEP) which additionally recommends that when the eGFR is used in patients with extremes of body mass index for purposes of drug dosing, the eGFR should be multiplied by the estimated BMI. CHEMISTRY Calcium Lvl 8.0 mg/dL 8.5 - 10.5 01/01 [facility] CHEMISTRY AGAP 14.4 meq/L 10.0 - 01/01 Normal [facility] 20.0 [facility] CHEMISTRY Glucose Lvl 99 mg/dL 70 - 99 01/01 Normal 5Interpretive Data: Adult reference range values reflect the clinical guidelines of the [place] [employer]. [facility] CHEMISTRY Sodium Lvl 138 meq/L 135 - 145 01/01 Normal 2012 [facility] CHEMISTRY Creatinine 0.9 mg/dL 0.5 - 1.4 01/[address] [facility] CHEMISTRY BUN 11 mg/dL 7 - 22 01/01 Normal [facility] CHEMISTRY CO2 26 meq/L 24 - 32 01/01 [facility]2012 [facility] CHEMISTRY Chloride Lvl 101 meq/L 95 - 109 01/01 [facility]2012 [facility] CHEMISTRY Potassium 3.4 meq/L 3.5 - 5.1 01/01 [facility] HEMATOLOGY Eosinophils 0.2 K/CMM 0.0 - 0.5 01/01 Normal [facility] HEMATOLOGY Monocytes # 0.6 K/CMM 0.0 - 0.8 01/01 [facility]2012 [facility] HEMATOLOGY Lymphocytes 0.9 K/CMM 1.0 - 5.5 01/01 [facility] HEMATOLOGY Segs-Bands # 4.5 K/CMM 1.5 - 8.1 01/01 [facility]2012 [facility] HEMATOLOGY Basophils 0.4 % 0.0 - 1.0 01/01 [facility]2012 [facility] HEMATOLOGY Eosinophils 3.6 % 0.0 - 4.0 01/01 [facility] HEMATOLOGY Monocytes 9.4 % 2.0 - 12.0 01/01 [facility] HEMATOLOGY Lymphocytes 13.8 % 20.0 - 01/01 LOW [place] 40.0 /2012 [facility] HEMATOLOGY Segs 72.8 % 45.0 - 01/01 Normal [facility] 75.0 /2012 [facility] HEMATOLOGY RDW 12.9 % 11.5 - 01/01 Normal [place] 14.5 /2012 [facility] HEMATOLOGY MCHC 35.5 g/dL 32.0 - 01/01 Normal [place] 36.0 /2012 [facility] HEMATOLOGY MCH 32.6 pg 27.0 - 01/01 HI [place] 31.0 /2012 [facility] HEMATOLOGY MCV 91.9 fL 80.0 - 01/01 Normal [place] 94.0 /2012 [facility] HEMATOLOGY Hct 35.8 % 42.0 - 01/01 LOW [place] 54.0 [facility] HEMATOLOGY RBC 3.90 M/CMM 4.70 - 01/01 [facility] 6.10 /2012 [facility] HEMATOLOGY WBC 6.2 K/CMM 3.7 - 10.4 01/01 Normal [facility] HEMATOLOGY Hgb 12.7 g/dL 14.0 - 01/01 [facility] 18.0 /2012 [facility] HEMATOLOGY MPV 8.0 fL 7.4 - 10.4 01/01 Normal [facility] HEMATOLOGY Platelet 124 K/CMM 133 - 450 01/01 [facility] CHEMISTRY eGFR 50 12/31 NA 3Result Comment: The eGFR is calculated using the CKD-EPI formula. In most young, healthy individuals the eGFR will be > 90 mL/min/1.73m2. The eGFR declines with age. An eGFR of 60-89 may be normal in [facility] mL/min/1.7 some populations, particularly the elderly, for whom the CKD-EPI formula has not been extensively validated. Use of the eGFR is not recommended in the following populations: [place] [address] [facility] Individuals with unstable creatinine concentrations, including patients and those with serious co-morbid conditions. Patients with extremes in muscle mass or diet. The data above are obtained from the National Kidney Disease Education Program (NKDEP) which additionally recommends that when the eGFR is used in patients with extremes of body mass index for purposes of drug dosing, the eGFR should be multiplied by the estimated BMI. CHEMISTRY Sodium Lvl 136 meq/L 135 - 145 12/31 [facility] CHEMISTRY Potassium 3.6 meq/L 3.5 - 5.1 12/31 Normal [facility] Lvl [facility] CHEMISTRY Chloride Lvl 96 meq/L 95 - 109 12/31 Normal [facility] CHEMISTRY CO2 29 meq/L 24 - 32 12/31 Normal [facility] CHEMISTRY Creatinine 1.3 mg/dL 0.5 - 1.4 12/31 Normal [facility] CHEMISTRY Calcium Lvl 8.6 mg/dL 8.5 - 10.5 12/31 Normal [facility] CHEMISTRY BUN 14 mg/dL 7 - 22 12/31 Normal [facility] CHEMISTRY Glucose Lvl 119 mg/dL 70 - 99 12/31 [place] 6Interpretive Data: Adult reference range values reflect the clinical guidelines of the [place] [employer]. [facility] CHEMISTRY AGAP 14.6 meq/L 10.0 - 12/31 Normal [facility] 20.0 [facility] Center CHEMISTRY Magnesium 2.1 mg/dL 1.8 - 2.4 12/31 Normal [facility] Center CHEMISTRY Phosphorus 3.5 mg/dL 2.5 - 4.5 12/31 Normal [facility] Center HEMATOLOGY Hct 35.7 % 42.0 - 12/31 LOW [facility] 54.0 [facility] [place] HEMATOLOGY MCV 92.6 fL 80.0 - 12/31 Normal [facility] 94.0 [facility] HEMATOLOGY Hgb 12.6 g/dL 14.0 - 12/31 [facility] 18.0 [facility] HEMATOLOGY Platelet 124 K/CMM 133 - 450 12/31 LOW [facility] Center HEMATOLOGY MPV 7.7 fL 7.4 - 10.4 12/31 Normal [facility] HEMATOLOGY RDW 13.0 % 11.5 - 02 Normal [facility] 14.5 /2012 [facility] HEMATOLOGY MCH 32.8 pg 27.0 - 02 [facility] 31.0 /2012 [facility] HEMATOLOGY MCHC 35.4 g/dL 32.0 - 02 Normal [facility] 36.0 [facility] HEMATOLOGY RBC 3.85 M/CMM 4.70 - 02 LOW [place] 6.10 [facility] HEMATOLOGY WBC 7.2 K/CMM 3.7 - 10.4 12/31 Normal [facility] HEMATOLOGY Segs 76.1 % 45.0 - 02/ HI [place] 75.0 /2012 [facility] HEMATOLOGY Lymphocytes 13.8 % 20.0 - 02 LOW [place] 40.0 /2012 [facility] HEMATOLOGY Eosinophils 1.7 % 0.0 - 4.0 12/31 Normal [facility] HEMATOLOGY Monocytes 8.1 % 2.0 - 12.0 12/31 Normal [facility] HEMATOLOGY Basophils 0.3 % 0.0 - 1.0 12/31 Normal [facility] HEMATOLOGY Eosinophils 0.1 K/CMM 0.0 - 0.5 12/31 Normal [place] # /2012 [facility] HEMATOLOGY Lymphocytes 1.0 K/CMM 1.0 - 5.5 12/31 Normal [facility] # /2012 [facility] HEMATOLOGY Segs-Bands # 5.5 K/CMM 1.5 - 8.1 12/31 Normal [facility] HEMATOLOGY Monocytes # 0.6 K/CMM 0.0 - 0.8 12/31 Normal [facility] CHEMISTRY Troponin-I null 0.00 - 12/30 Normal [facility] 0.40 [facility] CHEMISTRY Total CK 57 unit/L 12 - 191 12/30 Normal [facility] CHEMISTRY Troponin-T null 0.000 - 12/30 Normal [facility] 0.100 /2012 [facility] CHEMISTRY pO2 Art 65 mm[Hg] 80 - 100 12/30 LOW [facility] CHEMISTRY HCO3 Art 39 mMol/L 22 - 26 02 HI [facility] CHEMISTRY BE Art 14 mMol/L -2-2 - 2 12/30 [facility] CHEMISTRY O2 Sat Art 94.0 % 95.0 - 12/30 LOW [facility] 100.0 [facility] CHEMISTRY pH Art 7.50 7.35 - 02 [facility] 7.45 [facility] CHEMISTRY pCO2 Art 50 mm[Hg] 35 - 45 02 [facility] CHEMISTRY Lactic Acid 2.0 mMol/L 0.5 - 2.2 12/30 Normal [facility] Lvl /2012 [facility] BLOOD BANK Antibody Negative 12/30 Normal [facility] RESULTS [facility] (12/30/2012 05:40:00) Center BLOOD BANK ABO/Rh O NEG 12/30 Unknown [place] RESULTS /2012 [facility] Center URINALYSIS UA Amorph Many /HPF None Seen 12/30 ABN [facility] *ABN* Center (12/29/2012 23:37:00) URINALYSIS UA Leuk Est Negative Negative 12/30 Normal [facility] (12/29/2012 23:37:00) Center URINALYSIS Micro? Performed 12/30 Normal [facility] (12/29/2012 23:37:00) Center URINALYSIS UA Bacteria Occasional /HPF None Seen 12/30 Normal Medical (12/29/2012 23:37:00) Center URINALYSIS UA Mucus Few /LPF None Seen 12/30 Normal Medical (12/29/2012 23:37:00) Center URINALYSIS UA RBC 3-5 /HPF 0 - 2 12/30 [facility] Medical *ABN* Center (12/29/2012 23:37:00) URINALYSIS UA Sq Epi Rare /LPF Few 12/30 Normal [facility] (12/29/2012 23:37:00) Center URINALYSIS UA WBC 1-3 0 - 5 12/30 NA [facility] Center URINALYSIS UA Bili Negative Negative 12/30 NA Medical *NA* Center (12/29/2012 23:37:00) URINALYSIS UA Ketones Negative Negative 12/30 NA Medical *NA* Center (12/29/2012 23:37:00) URINALYSIS UA Blood Small Negative 12/30 [facility] Medical *ABN* [place] (12/29/2012 23:37:00) URINALYSIS UA Protein Negative Negative 12/30 Normal [facility] (12/29/2012 23:37:00) Center URINALYSIS UA pH 7.5 5.0 - 8.0 12/30 Normal [facility] Center URINALYSIS UA Glucose Negative Negative 12/30 Normal [facility] (12/29/2012 23:37:00) Center URINALYSIS UA 0.2 EU/dL 0.1 - 1.0 12/30 Normal [facility] URINALYSIS UA Nitrite Negative Negative 12/30 Normal [facility] (12/29/2012 23:37:00) Center URINALYSIS UA Turbidity Turbid Clear 12/30 ABN [facility] *ABN* Center (12/29/2012 23:37:00) URINALYSIS UA Color Yellow Yellow 12/30 NA Medical *NA* Center (12/29/2012 23:37:00) URINALYSIS UA Spec Grav 1.010 <=1.030 12/30 Normal [facility] CHEMISTRY Lipase Lvl 113 unit/L 73 - 393 12/30 Normal [facility] CHEMISTRY Troponin-I null 0.00 - 12/30 Normal [facility] 0.40 [facility] CHEMISTRY Total CK 58 unit/L 12 - 191 12/30 Normal [facility] CHEMISTRY TSH 2.260 0.360 - 01/08 Normal [facility] uIU/mL 3.740 CHEMISTRY Iron 126 ug/dl 45 - 160 01/08 Normal [facility] CHEMISTRY UIBC 202 ug/dl 110 - 370 01/08 Normal [facility] CHEMISTRY TIBC 328 ug/dl 228 - 428 01/08 Normal [facility] CHEMISTRY % [place] 38 % 12 - 57 01/08 Normal [facility] CHEMISTRY Ferritin Lvl 79 ng/mL 22 - 275 01/08 Normal [facility] HEMATOLOGY Hgb 14.1 g/dL 14.0 - 01/08 Normal [facility] 18.0 HEMATOLOGY RBC 4.52 M/CMM 4.70 - 01/08 LOW [facility] 6.10 /2011 HEMATOLOGY WBC 6.2 K/CMM 3.7 - 10.4 01/08 Normal [facility] HEMATOLOGY MCHC 34.4 g/dL 32.0 - 01/08 Normal [facility] 36.0 /2011 HEMATOLOGY MCV 90.3 fL 80.0 - 01/08 Normal [facility] 94.0 /2011 HEMATOLOGY Hct 40.8 % 42.0 - 01/08 LOW [facility] 54.0 /2011 HEMATOLOGY RDW 14.2 % 11.5 - 01/08 Normal [facility] 14.5 /2011 HEMATOLOGY MCH 31.1 pg 27.0 - 01/08 HI [facility] 31.0 /2011 HEMATOLOGY Platelet 136 K/CMM 133 - 450 01/08 Normal [facility] HEMATOLOGY MPV 9.2 fL 7.4 - 10.4 01/08 Normal [facility] HEMATOLOGY Basophils # 0.0 K/CMM 0.0 - 0.2 01/08 Normal [facility] /2011 HEMATOLOGY Lymphocytes 1.7 K/CMM 1.0 - 5.5 01/08 Normal [facility] # /2011 HEMATOLOGY Eosinophils 0.3 K/CMM 0.0 - 0.5 01/08 Normal [facility] # /2011 HEMATOLOGY Monocytes # 0.4 K/CMM 0.0 - 0.8 01/08 Normal [facility] /2011 HEMATOLOGY Basophils 0.2 % 0.0 - 1.0 01/08 Normal [facility] /2011 HEMATOLOGY Segs-Bands # 3.9 K/CMM 1.5 - 8.1 01/08 Normal [facility] /2011 HEMATOLOGY Lymphocytes 26.7 % 20.0 - 01/08 Normal [facility] 40.0 /2011 HEMATOLOGY Eosinophils 4.5 % 0.0 - 4.0 01/08 HI [facility] /2011 HEMATOLOGY Monocytes 6.3 % 2.0 - 12.0 01/08 Normal [facility] /2011 HEMATOLOGY Plt Morph Normal 01/08 Normal [facility] /2011 (01/07/2012 18:37:00) HEMATOLOGY Segs 62.3 % 45.0 - 01/08 Normal [facility] 75.0 /2011 HEMATOLOGY RBC Morph Normal 01/08 Normal [facility] /2011 (01/07/2012 18:37:00) Vital Signs Vital Sign Value Date Comments Source BMI Calculated 23.23 03/08/2017 [facility] Height 170.18 cm 03/08/2017 [facility] Weight 67.273 03/08/2017 [facility] Respitory Rate 20 03/08/2017 [facility] Systolic (mm Hg) 120 03/08/2017 [facility] Diastolic (mm Hg) 68 03/08/2017 [facility] Heart Rate 68 03/08/2017 [facility] Weight 65.909 12/13/2016 [facility] Height 162.56 cm 12/13/2016 [facility] BMI Calculated 24.94 12/13/2016 [facility] Systolic (mm Hg) 134 10/08/2016 [facility] Diastolic (mm Hg) 58 10/08/2016 [facility] Heart Rate 54 10/08/2016 [facility] Temperature Oral (F) 97.7 F 10/08/2016 [facility] Heart Rate 52 10/08/2016 [facility] Respitory Rate 16 10/08/2016 [facility] Center Systolic (mm Hg) 161 10/08/2016 [facility] Center Diastolic (mm Hg) 66 10/08/2016 [facility] Temperature Oral (F) 97.6 F 10/08/2016 [facility] Heart Rate 54 10/08/2016 [facility] Systolic (mm Hg) 157 10/08/2016 [facility] Diastolic (mm Hg) 71 10/08/2016 [facility] Respitory Rate 16 10/08/2016 [facility] Temperature Oral (F) 98.1 F 10/08/2016 [facility] Respitory Rate 18 10/08/2016 [facility] Weight 66.636 10/04/2016 [facility] BMI Calculated 23.07 10/04/2016 [facility] Weight 66.818 10/04/2016 [facility] Height 170.18 cm 10/04/2016 [facility] BMI Calculated 24.48 03/02/2016 [facility] Weight 70.909 03/02/2016 [facility] Height 170.18 cm 03/02/2016 [facility] Systolic (mm Hg) 151 03/02/2016 [facility] Diastolic (mm Hg) 79 03/02/2016 [facility] Respitory Rate 20 03/02/2016 [facility] Heart Rate 53 03/02/2016 [facility] Respitory Rate 20 08/22/2015 [facility] Systolic (mm Hg) 142 08/22/2015 [facility] Diastolic (mm Hg) 65 08/22/2015 [facility] Temperature Oral (F) 97.4 F 08/22/2015 [facility] Heart Rate 53 08/22/2015 [facility] Heart Rate 58 08/22/2015 [facility] Systolic (mm Hg) 145 08/22/2015 [facility] Diastolic (mm Hg) 70 08/22/2015 [facility] Temperature Oral (F) 97.8 F 08/22/2015 [facility] Respitory Rate 20 08/22/2015 [facility] Temperature Oral (F) 98.3 F 08/22/2015 [facility] Heart Rate 55 08/22/2015 [facility] Systolic (mm Hg) 131 08/22/2015 [facility] Diastolic (mm Hg) 60 08/22/2015 [facility] Respitory Rate 20 08/22/2015 [facility] Weight 65.727 08/20/2015 [facility] BMI Calculated 22.69 08/20/2015 [facility] Height 170.18 cm 08/20/2015 [facility] Temperature Oral (F) 97.7 F 08/18/2015 [facility] Respitory Rate 20 08/18/2015 [facility] Systolic (mm Hg) 209 08/18/2015 [facility] Diastolic (mm Hg) 66 08/18/2015 [facility] Temperature Oral (F) 97.2 F 08/17/2015 [facility] Diastolic (mm Hg) 81 08/17/2015 [facility] Systolic (mm Hg) 188 08/17/2015 [facility] Respitory Rate 23 08/17/2015 [facility] Respitory Rate 28 08/17/2015 [facility] Systolic (mm Hg) 200 08/17/2015 [facility] Diastolic (mm Hg) 85 08/17/2015 [facility] Temperature Oral (F) 97.0 F 08/17/2015 [facility] Height 170.18 cm 08/17/2015 [facility] Weight 65.909 08/17/2015 [facility] BMI Calculated 22.76 08/17/2015 [facility] Heart Rate 50 08/17/2015 [facility] Temperature Oral (F) 98.0 F 08/14/2015 [facility] Heart Rate 68 08/14/2015 [facility] Temperature Oral (F) 97.7 F 08/14/2015 [facility] Systolic (mm Hg) 119 08/14/2015 [facility] Diastolic (mm Hg) 64 08/14/2015 [facility] Respitory Rate 20 08/14/2015 [facility] Temperature Oral (F) 97.6 F 08/14/2015 [facility] Heart Rate 60 08/14/2015 [facility] Respitory Rate 18 08/14/2015 [facility] Systolic (mm Hg) 129 08/14/2015 [facility] Diastolic (mm Hg) 57 08/14/2015 [facility] Heart Rate 80 08/14/2015 [facility] Systolic (mm Hg) 112 08/14/2015 [facility] Diastolic (mm Hg) 53 08/14/2015 [facility] Respitory Rate 18 08/14/2015 [facility] Weight 30.909 08/03/2015 [facility] Weight 68.182 08/03/2015 [facility] BMI Calculated 23.54 08/03/2015 [facility] Height 170.18 cm 08/03/2015 [facility] Weight 67.273 08/02/2015 [facility] BMI Calculated 23.23 08/02/2015 [facility] Height 170.18 cm 08/02/2015 [facility] BMI Calculated 22.6 12/19/2014 [facility] Weight 65.455 12/19/2014 [facility] Height 170.18 cm 12/19/2014 [facility] Diastolic (mm Hg) 71 11/27/2014 [facility] Systolic (mm Hg) 171 11/27/2014 [facility] Heart Rate 55 11/27/2014 [facility] Weight 67.273 11/27/2014 [facility] Diastolic (mm Hg) 65 10/30/2014 [facility] Heart Rate 54 10/30/2014 [facility] Systolic (mm Hg) 152 10/30/2014 [facility] BMI Calculated 23.54 10/30/2014 [facility] Weight 68.182 10/30/2014 [facility] Height 170.18 cm 10/30/2014 [facility] Diastolic (mm Hg) 72 10/15/2014 [facility] Systolic (mm Hg) 156 10/15/2014 [facility] Respitory Rate 18 10/15/2014 [facility] Heart Rate 55 10/15/2014 [facility] Weight 68.182 10/15/2014 [facility] BMI Calculated 23.54 10/15/2014 [facility] Height 170.18 cm 10/15/2014 [facility] Heart Rate 65 01/09/2014 [facility] Systolic (mm Hg) 144 01/09/2014 [facility] Diastolic (mm Hg) 67 01/09/2014 [facility] Weight 71.364 01/09/2014 [facility] BMI Calculated 24.64 01/09/2014 [facility] Height 170.18 cm 01/09/2014 [facility] Respitory Rate 18 01/01/2014 [facility] Systolic (mm Hg) 139 01/01/2014 [facility] Diastolic (mm Hg) 63 01/01/2014 [facility] Heart Rate 55 01/01/2014 [facility] Weight 70.455 01/01/2014 [facility] Height 170.18 cm 01/01/2014 [facility] Weight 69.091 09/10/2013 [facility] Height 170.18 cm 09/10/2013 [facility] Systolic (mm Hg) 140 09/10/2013 [facility] Diastolic (mm Hg) 69 09/10/2013 [facility] Respitory Rate 16 09/10/2013 [facility] Heart Rate 53 09/10/2013 [facility] Systolic (mm Hg) 147 01/02/2013 [facility] Diastolic (mm Hg) 70 01/02/2013 [facility] Respitory Rate 18 01/02/2013 [facility] Temperature Oral (F) 98.4 F 01/02/2013 [facility] Diastolic (mm Hg) 65 01/02/2013 [facility] Systolic (mm Hg) 142 01/02/2013 [facility] Systolic (mm Hg) 192 01/02/2013 [facility] Diastolic (mm Hg) 69 01/02/2013 [facility] Heart Rate 58 01/02/2013 [facility] Respitory Rate 17 01/02/2013 [facility] Temperature Oral (F) 97.9 F 01/02/2013 [facility] Respitory Rate 18 01/02/2013 [facility] Heart Rate 50 01/02/2013 [facility] Heart Rate 95 01/02/2013 [facility] Temperature Oral (F) 98.2 F 01/02/2013 [facility] Weight 76.364 12/30/2012 [facility] Height 167.64 cm 12/30/2012 [facility] Weight 72.727 12/30/2012 [facility] Height 170.18 cm 12/30/2012 [facility] Systolic (mm Hg) 124 10/24/2012 [facility] Heart Rate 53 10/24/2012 [facility] Respitory Rate 16 10/24/2012 [facility] Diastolic (mm Hg) 63 10/24/2012 [facility] Height 170.18 cm 10/24/2012 [facility] Weight 75.000 10/24/2012 [facility] Heart Rate 58 08/03/2012 [facility] Respitory Rate 18 08/03/2012 [facility] Temperature Oral (F) 98.4 F 08/03/2012 [facility] Diastolic (mm Hg) 51 08/03/2012 [facility] Systolic (mm Hg) 110 08/03/2012 [facility] Height 170.18 cm 08/03/2012 [facility] Weight 75.000 08/03/2012 [facility] Height 170.18 cm 05/01/2012 [facility] Weight 72.727 05/01/2012 [facility] Systolic (mm Hg) 131 01/07/2012 [facility] Heart Rate 54 01/07/2012 [facility] Diastolic (mm Hg) 59 01/07/2012 [facility] Respitory Rate 14 01/07/2012 [facility] Temperature Oral (F) 98.1 F 01/07/2012 [facility] Height 170.18 cm 01/07/2012 [facility] Weight 72.727 01/07/2012 [facility] Encounters Location Location Encounter Encounter Reason Attending ADM DC Status Source Details Type Number For Provider Date Date Visit Outpatient [id number] SLEEP JOSE C 01/07 Active [facility] 2 [facility] Outpatient [id number] JOSE C 01/19 Active [facility] 3 [place] /2011 Outpatient [id number] CPAP/BPA JOSE C 02/08 Active [facility] 4 P [facility] Outpatient [id number] 786.7 [place] GUZMAN 05/01 Active [facility] Outpatient [id number] FU JOSE C 08/03 Active [facility] 6 Outpatient [id number] FU JOSE C 10/24 Active [facility] 7 [facility] Inpatient [id number] ANTWON MATTHEW 12/30 01/02 Active [facility] Outpatient [id number] F/U TIESHA 02/20 Active [facility] 8 A Outpatient [id number] F/U TIESHA 09/10 Active [facility] 1 A Outpatient [id number] FOLLOW TIESHA 01/01 Active [facility] 2 UP A [facility] Outpatient [id number] ALEENA ROZINA 01/09 Active [facility] 3 BOWEL [facility] Outpatient [id number] _MAPID:[id number] Non 01/09 01/10 [facility] [id number] NCNTRRFV Physician /2013 Medical Hospital 3 [id number] [facility] Outpatient [id number] Tiesha 10/15 10/16 [facility] [place] 4 [place] /2013 [facility] a [facility] Outpatient [id number] Rozina 10/30 10/31 [facility] [place] 7 Crystal /2013 [facility] Outpatient [id number] Rozina 11/27 11/28 [facility] [place] [facility] 0 Hume /2014 [facility] Outpatient [id number] Tiesha 12/03 12/03 [facility] [place] 6 [place] /2014 [facility] a HS Outpt Diag [id number] Rozina 12/19 12/20 [facility] 3 [place] [facility] Outpatient [id number] Tiesha 12/26 12/26 [facility] [place] 1 [place] /2014 [facility] a [facility] Inpatient [id number] [place] 08/02 08/14 [place] [facility] 7 Kirsten /2014 [facility] [place] [id number] [place] 08/17 08/18 [facility] Emergency 8 [place] /2014 [facility] OBS [id number] Dipak 08/20 08/22 [place] Observation 2 Arianne /2014 [facility] Outpatient [id number] Tiesha 03/02 03/03 [facility] 3 [facility] /2015 [facility] [facility] Outpt Diag [id number] Ana Rosa 06/04 06/05 [facility] 4 [facility] [place] [facility] Out[facility] Di[facility] [id number] Ana Rosa 07/09 07/10 [facility] 5 [facility] [place] [facility] Inpatient [id number] [place] 10/04 10/08 [facility] [place] 1 Rianon /2015 [facility] Outpatient [id number] Non 12/13 12/14 [place] 2 Physician /2016 [facility] Outpatient [id number] Garbo Franc 02/24 02/25 [facility] [place] 4 /2017 /2017 [facility] Outpt Diag [id number] Denise 02/28 03/01 [facility] 6 Mindy [facility] [place] [facility] Outpatient [id number] Tiesha 03/08 03/09 [facility] 0 [place] /2016 [place] [facility] Outpt Diag [id number] Ana Rosa 04/15 04/16 [facility] 7 [facility] [place] [facility] Outpt Diag [id number] Ana Rosa 05/20 05/21 [facility] 8 [facility] [place] [facility] Outpt Diag [id number] [employer] 05/23 05/24 [facility] 9 [facility] [place] [facility] Outpt Diag [id number] [employer] 04/25 04/26 [facility] 0 [facility] [place] Outpatient [id number] F/U TIESHA Active [facility] 0 [place] A Procedures Procedure Code Date Perfomer Comments Source Cholecystectomy [id number] [address] Cholecystectomy [id number] [facility] 1 [place] [facility] Cholecystectomy [id number] [facility] 1 Bilateral repair of [id number] procedure x 3 [facility] inguinal hernia, [place] direct<sup>1</sup> Imaging Complete repair of [id number] right [facility] rotator shoulder, with [place] cuff<sup>2</sup> small pin Imaging inserted Complete resection of [id number] [facility] colon [place] [facility] Excision of [id number] [facility] gallbladder [place] [facility] Manipulation of [id number] [facility] deviated nasal septum [place] [facility] Bilateral repair of [id number] procedure x 3 [facility] inguinal hernia, direct<sup>1</sup> Complete repair of [id number] right [facility] rotator shoulder, with cuff<sup>2</sup> small pin inserted Complete resection of [id number] [facility] colon Excision of [id number] [facility] gallbladder Man[place]ulation of [id number] [facility] deviated nasal septum Bilateral repair of [id number] procedure x 3 [facility] inguinal hernia, Medical direct<sup>1</sup> Center Complete repair of [id number] right [facility] rotator shoulder, with Medical cuff<sup>2</sup> small pin Center inserted Complete resection of [id number] [facility] colon [facility] Excision of [id number] [facility] Manipulation of [id number] [facility] deviated nasal septum [facility]
--- OUTSIDE RECORDS SUMMARY | 2018-05-12 04:42 | XMS REPORT | CCD ---
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 Retention of urine1 Active Skin at risk of breakdown Active Stroke Active 1needs straight cath every 6 hrs or as needed if bladder is distended Medications Medication Instructions Start Date End Date Status B-12 Resin 1000 mcg oral tablet 1,000 microgram, 1 tab, 01/07/2012 Ordered PO, Daily, 30 tab, Substitution Allowed, TAB VESIcare 5 mg oral tablet 5 mg, 1 tab, PO, Daily, 01/07/2012 Ordered 30 tab, Substitution Allowed, TAB Procardia XL 90 mg oral tablet, 90 mg, 1 tab, PO, Daily, 01/07/2012 Ordered extended release 30 tab, Substitution Allowed, ERTAB Lotensin 40 mg oral tablet 40 mg, 1 tab, PO, Daily, 01/07/2012 Ordered 30 tab, Substitution Allowed, TAB Multiple Vitamins oral tablet 1 tab, PO, Daily, 30 tab, 01/07/2012 Ordered Substitution Allowed, Maintenance, TAB hydrochlorothiazide 25 mg oral 25 mg, 1 tab, PO, Daily, 01/07/2012 Ordered tablet 30 tab, Substitution Allowed Bystolic 10 mg oral tablet 10 mg, 1 tab, PO, Daily, 01/07/2012 Ordered 30 tab, Substitution Allowed, TAB aspirin 81 mg tablet, enteric 81 mg, 1 tab, PO, Daily, 01/07/2012 Ordered coated 0 tab, Substitution Allowed, ECTAB Vital Signs Most recent to oldest [Reference Range]: 1 Height 170.18 cm (01/07/2012 13:55:00) Temperature Oral [96.4-99.1 DegF] 98.1 DegF (01/07/2012 16:04:00) Systolic Blood Pressure [90-140 mmHg] 131 mmHg (01/07/2012 16:04:00) Diastolic Blood Pressure [60-90 mmHg] 59 mmHg *LOW* (01/07/2012 16:04:00) Respiratory Rate [14-20 BRMIN] 14 BRMIN (01/07/2012 16:04:00) Peripheral Pulse Rate [60-100 bpm] 54 bpm *LOW* (01/07/2012 16:04:00) Weight 72.727 kg (01/07/2012 13:55:00) Results CHEMISTRY Most recent to oldest [Reference Range]: 1 Iron [45-160 ug/dl] 126 ug/dl (01/07/2012 18:37:00) Ferritin Lvl [22-275 ng/mL] 79 ng/mL (01/07/2012 18:37:00) % [place] [12-57 %] 38 % (01/07/2012 18:37:00) UIBC [110-370 ug/dl] 202 ug/dl (01/07/2012 18:37:00) TIBC [228-428 ug/dl] 328 ug/dl (01/07/2012 18:37:00) TSH [0.360-3.740 uIU/mL] 2.260 uIU/mL (01/07/2012 18:37:00) HEMATOLOGY Most recent to oldest [Reference Range]: 1 WBC [3.7-10.4 K/CMM] 6.2 K/CMM (01/07/2012 18:37:00) RBC [4.70-6.10 M/CMM] 4.52 M/CMM *LOW* (01/07/2012 18:37:00) Hgb [14.0-18.0 g/dL] 14.1 g/dL (01/07/2012 18:37:00) Hct [42.0-54.0 %] 40.8 % *LOW* (01/07/2012 18:37:00) MCV [80.0-94.0 fL] 90.3 fL (01/07/2012 18:37:00) MCH [27.0-31.0 pg] 31.1 pg *HI* (01/07/2012 18:37:00) MCHC [32.0-36.0 g/dL] 34.4 g/dL (01/07/2012 18:37:00) RDW [11.5-14.5 %] 14.2 % (01/07/2012 18:37:00) Platelet [133-450 K/CMM] 136 K/CMM (01/07/2012 18:37:00) MPV [7.4-10.4 fL] 9.2 fL (01/07/2012 18:37:00) Segs [45.0-75.0 %] 62.3 % (01/07/2012 18:37:00) Lymphocytes [20.0-40.0 %] 26.7 % (01/07/2012 18:37:00) Monocytes [2.0-12.0 %] 6.3 % (01/07/2012 18:37:00) Eosinophils [0.0-4.0 %] 4.5 % *HI* (01/07/2012 18:37:00) Basophils [0.0-1.0 %] 0.2 % (01/07/2012 18:37:00) Segs-Bands # [1.5-8.1 K/CMM] 3.9 K/CMM (01/07/2012 18:37:00) Lymphocytes # [1.0-5.5 K/CMM] 1.7 K/CMM (01/07/2012 18:37:00) Monocytes # [0.0-0.8 K/CMM] 0.4 K/CMM (01/07/2012 18:37:00) Eosinophils # [0.0-0.5 K/CMM] 0.3 K/CMM (01/07/2012 18:37:00) Basophils # [0.0-0.2 K/CMM] 0.0 K/CMM (01/07/2012 18:37:00) RBC Morph Normal (01/07/2012 18:37:00) Plt Morph Normal (01/07/2012 18:37:00)
--- OUTSIDE RECORDS SUMMARY | 2018-05-12 04:42 | XMS REPORT | CCD ---
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 MELECIO - Obstructive sleep apnea Active Psoriasis Resolved Retention of urine1 Active Seizures complicating intracranial hemorrhage Resolved Skin at risk of breakdown Resolved Stroke Active 1needs straight cath every 6 hrs or as needed if bladder is distended Medications Medication Instructions Start Date End Date Status VESIcare 10 mg oral tablet 10 mg, 1 tab, PO, Daily, 30 09/10/2013 Ordered tab, Substitution Allowed, TAB hydrALAZINE 75 mg, PO, Q6H, Substitution 09/10/2013 Ordered Allowed clonidine 0.1 mg/24 hr PRN, Substitution Allowed, 09/10/2013 Ordered transdermal film, extended Maintenance release Bystolic 5 mg oral tablet 5 mg, 1 tab, PO, Daily, 30 09/10/2013 Ordered tab, Substitution Allowed, TAB Vital Signs Most recent to oldest [Reference Range]: 1 Height 170.18 cm (09/10/2013 10:41:00) Systolic Blood Pressure [90-140 mmHg] 140 mmHg (09/10/2013 10:41:00) Diastolic Blood Pressure [60-90 mmHg] 69 mmHg (09/10/2013 10:41:00) Respiratory Rate [14-20 BRMIN] 16 BRMIN (09/10/2013 10:41:00) Peripheral Pulse Rate [60-100 bpm] 53 bpm *LOW* (09/10/2013 10:41:00) Weight 69.091 kg (09/10/2013 10:41:00)
--- OUTSIDE RECORDS SUMMARY | 2018-05-12 04:42 | XMS REPORT | CCD ---
:1930 Author Organization [facility] Care Team Providers Name Role Phone Augie Vann [...] Medication Instructions Start Date End Date Status Anuja oral capsule 1 cap, PO, Daily, finesteride/flomax combo 1mg, Substitution Allowed, Maintenance 08/03/2012 Ordered finesteride/flomax combo 1mg Calcium 600 +D oral tablet 1 tab, PO, BID, 08/03/2012 Ordered Substitution Allowed, Maintenance levocetirizine 5 mg oral 5 mg, 1 tab, PO, QPM, 08/03/2012 Ordered tablet Substitution Allowed, Maintenance Lamictal 100 mg oral tablet 100 mg, 1 tab, PO, Q12H, 08/03/2012 Ordered Substitution Allowed Flagyl 500 mg oral tablet 500 mg, 1 tab, PO, TID, 2 weeks duration of treatment- started 07/31/2012, Substitution Allowed 08/03/2012 Ordered 2 weeks duration of treatment- started 07/31/2012 hyoscyamine 0.125 mg 0.125 mg, 1 tab, SL, Q4H, may take up to 2 SL PRN, Substitution Allowed 08/03/2012 Ordered sublingual tablet may take up to 2 SL PRN Vital Signs Most recent to oldest [Reference Range]: 1 Height 170.18 cm (08/03/2012 10:34:00) Temperature Oral [96.4-99.1 DegF] 98.4 DegF (08/03/2012 10:34:00) Systolic Blood Pressure [90-140 mmHg] 110 mmHg (08/03/2012 10:34:00) Diastolic Blood Pressure [60-90 mmHg] 51 mmHg *LOW* (08/03/2012 10:34:00) Respiratory Rate [14-20 BRMIN] 18 BRMIN (08/03/2012 10:34:00) Peripheral Pulse Rate [60-100 bpm] 58 bpm *LOW* (08/03/2012 10:34:00) Weight 75.000 kg (08/03/2012 10:34:00)
--- OUTSIDE RECORDS SUMMARY | 2018-05-12 04:42 | XMS REPORT | CCD ---
:1930 Author Organization [facility] Team Providers Name Role Phone Teisha Cason Referring Provider Allergies, Adverse Reactions, Alerts [...]
--- OUTSIDE RECORDS SUMMARY | 2018-05-12 04:42 | XMS REPORT | CCD ---
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
--- OUTSIDE RECORDS SUMMARY | 2018-05-12 04:42 | XMS REPORT | CCD ---
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
--- OUTSIDE RECORDS SUMMARY | 2018-05-12 04:42 | XMS REPORT | CCD ---
:1930 Author Organization [facility] Care Team Providers Name Role Phone TravisBerry Gabriel Consulting Provider Allergies, Adverse Reactions, Alerts Substance [...] Medication Instructions Start Date End Date Status Prinivil 20 mg, Route: PO, 01/01/2013 12/31/2012 Canceled Drug form: TAB, Daily, Start date: 01/01/13 21:00:00, Duration: 30 day, Stop date: 01/31/13 9:00:00 gabapentin 300 mg, Route: PO, 01/01/2013 12/31/2012 Canceled Drug form: CAP, Daily, Dosing Weight 72.727, kg, Start date: 01/01/13 21:00:00, Duration: 30 day, Stop date: 01/31/13 9:00:00 hydrALAZINE 10 mg, 0.5 mL, Route: 01/01/2013 01/01/2013 Completed IV, Drug form: INJ, ONCE, Dosing Weight 76.364, kg, Start date: 01/01/13 6:35:00, Stop date: 01/01/13 6:35:00 gabapentin 300 mg, 1 cap, Route: 01/03/2013 01/02/2013 Canceled PO, Drug form: CAP, Daily, Dosing Weight 72.727, kg, Start date: 01/03/13 21:00:00, Duration: 30 day, Stop date: 02/02/13 9:00:00 hydrALAZINE 10 mg, 0.5 mL, Route: 12/31/2012 12/31/2012 Completed IV, Drug form: INJ, ONCE, Dosing Weight 76.364, kg, Start date: 12/31/12 12:35:00, Stop date: 12/31/12 12:35:00 magnesium sulfate 2 gm, 100 mL, Route: IVPB, Drug form: INJ, Q2H, Dosing Weight 72.727, kg, Total Dose=4 gm, Start date: 12/30/12 4:00:00, Duration: 2 doses or times, Stop date: 12/30/12 6:00:00, For Mg=1.5 - 1.7 mg/dL 12/30/2012 12/30/2012 Completed For Mg=1.5 - 1.7 mg/dL Procardia 90 mg, Route: PO, 12/30/2012 12/30/2012 Deleted Drug form: CAP, Daily, Dosing Weight 72.727, kg, Start date: 12/30/12 9:00:00, Duration: 30 day, Stop date: 01/28/13 9:00:00 Phenergan 12.5 mg, 0.5 mL, 12/30/2012 01/02/2013 Discontinued Route: IVPB, Drug form: INJ, ONCE, Dosing Weight 72.727, kg, PRN Nausea & Vomiting, Start date: 12/30/12 3:52:00, Stop date: 01/29/13 2:51:00 Zofran 8 mg, 4 mL, Route: 12/30/2012 12/30/2012 Completed IVP, Drug form: INJ, ONCE, Dosing Weight 72.727, kg, Priority: STAT, Start date: 12/30/12 1:16:00, Stop date: 12/30/12 1:16:00 hydrALAZINE 20 mg, Route: IVP, 12/30/2012 12/30/2012 Completed ONCE, Dosing Weight 72.727, kg, Priority: STAT, Start date: 12/30/12 2:48:00, Stop date: 12/30/12 2:48:00 Zofran 4 mg, 2 mL, Route: 12/29/2012 12/29/2012 Completed IVP, Drug form: INJ, ONCE, Dosing Weight 72.727, kg, Priority: STAT, Start date: 12/29/12 22:54:00, Stop date: 12/29/12 22:54:00 potassium chloride 20 mEq, 100 mL, 12/31/2012 12/31/2012 Completed Route: IVPB, Drug form: INJ, ONCE, Dosing Weight 76.364, kg, Start date: 12/31/12 11:34:00, Stop date: 12/31/12 11:34:00 magnesium sulfate 2 gm, 50 mL, Route: IVPB, Drug form: INJ, Q2H, Dosing Weight 72.727, kg, Total Dose=4 gm, Start date: 12/30/12 8:00:00, Duration: 2 doses or times, Stop date: 12/30/12 10:00:00, For Mg=1.5 - 1.7 mg/dL 201212/30/2012 Completed For Mg=1.5 - 1.7 mg/dL aspirin 325 mg, 1 tab, Route: 12/30/2012 01/02/2013 Discontinued PO, Drug form: TAB, Daily, Dosing Weight 72.727, kg, Start date: 12/30/12 9:00:00, Duration: 30 day, Stop date: 01/28/13 9:00:00 gabapentin 300 mg, 1 cap, Route: 12/30/2012 12/31/2012 Discontinued PO, Drug form: CAP, Daily, Dosing Weight 72.727, kg, Start date: 12/30/12 9:00:00, Duration: 30 day, Stop date: 01/28/13 9:00:00 aspirin 325 mg, Route: PO, 12/30/2012 12/30/2012 Discontinued Drug form: TAB, ONCE, Dosing Weight 72.727, kg, Priority: STAT, Start date: 12/30/12 3:46:00, Stop date: 12/30/12 3:46:00 Lamictal 100 mg, 1 tab, Route: 12/30/2012 01/02/2013 Discontinued PO, Drug form: TAB, BID, Dosing Weight 72.727, kg, Start date: 12/30/12 9:00:00, Duration: 30 day, Stop date: 01/28/13 17:00:00 Dilantin 100 mg oral capsule, 400 mg, 4 cap, Route: 12/30/2012 01/02/2013 Discontinued extended release PO, Drug form: ERCAP, Bedtime, Dosing Weight 72.727, kg, Start date: 12/30/12 21:00:00, Stop date: 01/28/13 21:00:00 VESIcare 5 mg, Route: PO, 12/30/2012 12/30/2012 Deleted Daily, Dosing Weight 72.727, kg, Start date: 12/30/12 9:00:00, Duration: 30 day, Stop date: 01/28/13 9:00:00 Flomax 0.4 mg, 1 cap, Route: 12/30/2012 01/02/2013 Discontinued PO, Drug form: CAP, Daily, Dosing Weight 72.727, kg, Start date: 12/30/12 9:00:00, Duration: 30 day, Stop date: 01/28/13 9:00:00 hydrALAZINE 50 mg oral tablet 50 mg, 1 tab, Route: 12/30/2012 01/02/2013 Discontinued PO, Drug form: TAB, QID, Dosing Weight 72.727, kg, Start date: 12/30/12 9:00:00, Stop date: 01/28/13 21:00:00 Bystolic 10 mg, 2 tab, Route: 12/30/2012 01/02/2013 Discontinued PO, Drug form: TAB, Daily, Dosing Weight 72.727, kg, Start date: 12/30/12 9:00:00, Duration: 30 day, Stop date: 01/28/13 9:00:00 Lotensin HCT 20 mg-12.5 mg 2 tab, Route: PO, 12/30/2012 12/30/2012 Deleted oral tablet Dosing Weight 72.727, kg, Daily, Start date: 12/30/12 9:00:00, Duration: 30 day, Stop date: 01/28/13 9:00:00 potassium chloride 40 mEq, 30 mL, Route: NJ, Drug form: LIQ, ONCE, Dosing Weight 72.727, kg, Start date: 12/30/12 3:43:00, Duration: 1 doses or times, Stop date: 12/30/12 3:43:00, For K=3 - 3.4 mEq/L 12/30/2012 12/30/2012 Completed For K=3 - 3.4 mEq/L D5W 1/2NS + KCL 20mEq/L 1,000 mL, Rate: 75 12/30/2012 01/02/2013 Discontinued 1000ml (Premix) 1,000 mL ml/hr, Infuse over: 13.3 hr, Route: IV, kg, Total Volume: 1,000, Start date: 12/30/12 3:42:00, Duration: 30 day, Stop date: 01/29/13 3:41:00 enoxaparin 40 mg, 0.4 mL, Route: 12/30/2012 01/02/2013 Discontinued SUB-Q, Drug form: INJ, [id number], Dosing Weight 72.727, kg, Start date: 12/30/12 9:00:00, Duration: 30 day, Stop date: 01/28/13 9:00:00 hydrochlorothiazide 25 mg, 1 tab, Route: 12/30/2012 01/02/2013 Discontinued PO, Drug form: TAB, Daily, Start date: 12/30/12 9:00:00, Stop date: 01/28/13 9:00:00 Detrol LA 4 mg, 1 cap, Route: 12/30/2012 01/02/2013 Discontinued PO, Drug form: CAP, Daily, Start date: 12/30/12 9:00:00, Duration: 30 day, Stop date: 01/28/13 9:00:00 Adalat CC 90 mg, 1 tab, Route: 12/30/2012 01/02/2013 Discontinued PO, Drug form: ERTAB, Daily, Start date: 12/30/12 9:00:00, Duration: 30 day, Stop date: 01/28/13 9:00:00 Omnipaque 350mg/ml 82 mL, Route: IVP, Drug Form: SOLN, Dosing Weight 72.727, kg, ONCALL, STAT, Start date: 12/29/12 23:44:00, Duration: 1 doses or times, Dose=2.2ml/kg, Max [id number] -- "To be infused by Radiology Staff ONLY" 12/2912/30/2012 Completed Dose=2.2ml/kg, Max clpe=[id number] -- "To be infused by Radiology Staff ONLY" dutasteride 0.5 mg, 1 cap, Route: 01/02/2013 01/02/2013 Discontinued PO, Drug form: CAP, Daily, Dosing Weight 76.364, kg, Start date: 01/02/13 9:00:00, Duration: 30 day, Stop date: 01/31/13 9:00:00 Prinivil 20 mg, 1 tab, Route: 12/30/2012 12/31/2012 Discontinued PO, Drug form: TAB, Daily, Start date: 12/30/12 9:00:00, Duration: 30 day, Stop date: 01/28/13 9:00:00 hydrALAZINE 50 mg oral tablet 1 tab, Route: PO, 12/30/2012 12/30/2012 Discontinued ONCE, Dosing Weight 72.727, kg, Start date: 12/30/12 2:37:00, Stop date: 12/30/12 2:37:00 gabapentin 300 mg, 1 cap, Route: 12/31/2012 01/01/2013 Discontinued PO, Drug form: CAP, Daily, Dosing Weight 72.727, kg, Start date: 12/31/12 21:00:00, Duration: 30 day, Stop date: 01/30/13 9:00:00 Prinivil 20 mg, 1 tab, Route: 12/31/2012 01/01/2013 Discontinued PO, Drug form: TAB, Daily, Start date: 12/31/12 21:00:00, Duration: 30 day, Stop date: 01/30/13 9:00:00 Prinivil 20 mg, 1 tab, Route: 01/01/2013 01/02/2013 Discontinued PO, Drug form: TAB, Daily, Start date: 01/01/13 21:00:00, Duration: 30 day, Stop date: 01/31/13 9:00:00 Vital Signs Most recent to oldest 1 2 3 [Reference Range]: Height 167.64 cm 170.18 cm (12/30/2012 07:50:00) (12/29/2012 21:40:00) Temperature Oral 98.4 DegF 97.9 DegF 98.2 DegF [96.4-99.1 DegF] (01/02/2013 12:37:00) (01/02/2013 00:15:00) (01/01/2013 19: 59:00) Systolic Blood Pressure 147 mmHg 142 mmHg 192 mmHg [90-140 mmHg] *HI* *HI* *HI* (01/02/2013 14:00:00) (01/02/2013 12:37:00) (01/02/2013 08:00:00) Diastolic Blood Pressure 70 mmHg 65 mmHg 69 mmHg [60-90 mmHg] (01/02/2013 14:00:00) (01/02/2013 12:37:00) (01/02/2013 08:00: 00) Respiratory Rate [14-20 18 BRMIN 17 BRMIN 18 BRMIN BRMIN] (01/02/2013 12:37:00) (01/02/2013 00:15:00) (01/01/2013 21:25:00) Peripheral Pulse Rate 58 bpm 50 bpm 95 bpm [60-100 bpm] *LOW* *LOW* (01/01/2013 19:59:00) (01/02/2013 00:15:00) (01/01/2013 21:25:00) Weight 76.364 kg 72.727 kg (12/30/2012 07:50:00) (12/29/2012 21:40:00) Results URINALYSIS Most recent to oldest [Reference Range]: 1 2 3 UA Turbidity [Clear] Turbid *ABN* (12/29/2012 23:37:00) UA Color [Yellow] Yellow *NA* (12/29/2012 23:37:00) UA pH [5.0-8.0] 7.5 (12/29/2012 23:37:00) UA Spec Grav [<=1.030] 1.010 (12/29/2012 23:37:00) UA Glucose [Negative] Negative (12/29/2012 23:37:00) UA Blood [Negative] Small *ABN* (12/29/2012 23:37:00) UA Ketones [Negative] Negative *NA* (12/29/2012 23:37:00) UA Protein [Negative] Negative (12/29/2012 23:37:00) UA Urobilinogen [0.1-1.0 EU/dL] 0.2 EU/dL (12/29/2012 23:37:00) UA Bili [Negative] Negative *NA* (12/29/2012 23:37:00) UA Leuk Est [Negative] Negative (12/29/2012 23:37:00) UA Nitrite [Negative] Negative (12/29/2012 23:37:00) UA WBC [0-5] 1-3 *NA* (12/29/2012 23:37:00) UA RBC [0-2 /HPF] 3-5 /HPF *ABN* (12/29/2012 23:37:00) UA Bacteria [None Seen /HPF] Occasional /HPF (12/29/2012 23:37:00) UA Sq Epi [Few /LPF] Rare /LPF (12/29/2012 23:37:00) UA Amorph Lenka [None Seen /HPF] Many /HPF *ABN* (12/29/2012 23:37:00) UA Mucus [None Seen /LPF] Few /LPF (12/29/2012 23:37:00) Micro? Performed (12/29/2012 23:37:00) BLOOD BANK RESULTS Most recent to oldest [Reference Range]: 1 2 3 ABO/Rh O NEG *Unknown* (12/30/2012 05:40:00) Antibody Scrn Negative (12/30/2012 05:40:00) CHEMISTRY Most recent to oldest 1 2 3 [Reference Range]: Sodium Lvl [135-145 mEq/L] 139 mEq/L 138 mEq/L 136 mEq/L (01/02/2013 04:38:00) (01/01/2013 02:01:00) (12/31/2012 02:09:00) Potassium Lvl [3.5-5.1 3.5 mEq/L 3.4 mEq/L 3.6 mEq/L mEq/L] (01/02/2013 04:38:00) *LOW* (12/31/2012 02:09:00) (01/01/2013 02:01:00) Chloride Lvl [95-109 mEq/L] 102 mEq/L 101 mEq/L 96 mEq/L (01/02/2013 04:38:00) (01/01/2013 02:01:00) (12/31/2012 02:09:00) CO2 [24-32 mEq/L] 23 mEq/L 26 mEq/L 29 mEq/L *LOW* (01/01/2013 02:01:00) (12/31/2012 02:09:00) (01/02/2013 04:38:00) AGAP [10.0-20.0 mEq/L] 17.5 mEq/L 14.4 mEq/L 14.6 mEq/L (01/02/2013 04:38:00) (01/01/2013 02:01:00) (12/31/2012 02:09:00) Creatinine Lvl [0.5-1.4 1.0 mg/dL 0.9 mg/dL 1.3 mg/dL mg/dL] (01/02/2013 04:38:00) (01/01/2013 02:01:00) (12/31/2012 02:09:00) eGFR 69 mL/min/1.73m2 1 79 mL/min/1.73m2 2 50 mL/min/1.73m2 3 *NA* *NA* *NA* (01/02/2013 04:38:00) (01/01/2013 02:01:00) (12/31/2012 02:09:00) BUN [7-22 mg/dL] 8 mg/dL 11 mg/dL 14 mg/dL (01/02/2013 04:38:00) (01/01/2013 02:01:00) (12/31/2012 02:09:00) Glucose Lvl [70-99 mg/dL] 120 mg/dL 4 99 mg/dL 5 119 mg/dL 6 *HI* (01/01/2013 02:01:00) *HI* (01/02/2013 04:38:00) (12/31/2012 02:09:00) Calcium Lvl [8.5-10.5 8.2 mg/dL 8.0 mg/dL 8.6 mg/dL mg/dL] *LOW* *LOW* (12/31/2012 02:09:00) (01/02/2013 04:38:00) (01/01/2013 02:01:00) Phosphorus [2.5-4.5 mg/dL] 1.9 mg/dL 2.6 mg/dL 3.5 mg/dL *LOW* (01/01/2013 02:01:00) (12/31/2012 02:09:00) (01/02/2013 04:38:00) Magnesium Lvl [1.8-2.4 1.5 mg/dL 1.7 mg/dL 2.1 mg/dL mg/dL] *LOW* *LOW* (12/31/2012 02:09:00) (01/02/2013 04:38:00) (01/01/2013 02:01:00) Lipase Lvl [73-393 unit/L] 113 unit/L (12/29/2012 23:04:00) Lactic Acid Lvl [0.5-2.2 2.0 mMol/L mMol/L] (12/30/2012 05:46:00) Total CK [12-191 unit/L] 39 unit/L 57 unit/L 58 unit/L (01/02/2013 04:38:00) (12/30/2012 05:46:00) (12/29/2012 23:04:00) Troponin-T [0.000-0.100 <0.010 ng/mL <0.010 ng/mL ng/mL] (01/02/2013 04:38:00) (12/30/2012 05:46:00) Troponin-I [0.00-0.40 <0.02 ng/mL <0.02 ng/mL <0.02 ng/mL ng/mL] (01/02/2013 04:38:00) (12/30/2012 05:46:00) (12/29/2012 23:04:00) pH Art [7.35-7.45] 7.50 *HI* (12/30/2012 05:46:00) pCO2 Art [35-45 mmHg] 50 mmHg *HI* (12/30/2012 05:46:00) pO2 Art [80-100 mmHg] 65 mmHg *LOW* (12/30/2012 05:46:00) HCO3 Art [22-26 mMol/L] 39 mMol/L *HI* (12/30/2012 05:46:00) BE Art [-2-2 mMol/L] 14 mMol/L *HI* (12/30/2012 05:46:00) O2 Sat Art [95.0-100.0 %] 94.0 % *LOW* (12/30/2012 05:46:00) 1Result Comment: The eGFR is calculated using the CKD-EPI formula. In most young , healthy individualsthe eGFR will be >90 mL/min/1.73m2. The eGFR declines with age. An eGFR of 60-89 may be normal in some populations, particularly the elderly, for whom the CKD-EPI formula has not been extensively validated. Use of the eGFR is not recommended in the following populations: Individuals with unstable creatinine concentrations, including patients and those with serious co-morbid conditions. Patients with extremes in muscle mass or diet. The data above are obtained from the National Kidney Disease Education Program ( NKDEP) which additionally recommends that when the eGFR is used in patients with extremes of body mass index for purposesof drug dosing, the eGFR should be multiplied by the estimated BMI.2Result Comment: The eGFR is calculated using the CKD-EPI formula. In most young, healthy individualsthe eGFR will be >90 mL/ min/1.73m2. The eGFR declines with age. An eGFR of 60-89 may be normal in some populations, particularly the elderly, for whom the CKD-EPI formula has not been extensively validated. Use of the eGFR is not recommended in the following populations: Individuals with unstable creatinine concentrations, including patients and those with serious co-morbid conditions. Patients with extremes in muscle mass or diet. The data above are obtained from the National Kidney Disease Education Program ( NKDEP) which additionally recommends that when the eGFR is used in patients with extremes of body mass index for purposesof drug dosing, the eGFR should be multiplied by the estimated BMI.3Result Comment: The eGFR is calculated using the CKD-EPI formula. In most young, healthy individualsthe eGFR will be >90 mL/ min/1.73m2. The eGFR declines with age. An eGFR of 60-89 may be normal in some populations, particularly the elderly, for whom the CKD-EPI formula has not been extensively validated. Use of the eGFR is not recommended in the following populations: Individuals with unstable creatinine concentrations, including patients and those with serious co-morbid conditions. Patients with extremes in muscle mass or diet. The data above are obtained from the National Kidney Disease Education Program ( NKDEP) which additionally recommends that when the eGFR is used in patients with extremes of body mass index for purposesof drug dosing, the eGFR should be multiplied by the estimated BMI.4Interpretive Data: Adult reference range values reflect the clinical guidelines of the [place] [employer].5Interpretive Data: Adult reference range values reflect the clinical guidelines of the [place] [employer].6Interpretive Data: Adult reference range values reflect the clinical guidelines of the [place] [employer].HEMATOLOGY Most recent to oldest 1 2 3 [Reference Range]: WBC [3.7-10.4 K/CMM] 6.8 K/CMM 6.2 K/CMM 7.2 K/CMM (01/02/2013 04:38:00) (01/01/2013 02:01:00) (12/31/2012 02:09:00) RBC [4.70-6.10 M/CMM] 4.00 M/CMM 3.90 M/CMM 3.85 M/CMM *LOW* *LOW* *LOW* (01/02/2013 04:38:00) (01/01/2013 02:01:00) (12/31/2012 02:09:00) Hgb [14.0-18.0 g/dL] 13.0 g/dL 12.7 g/dL 12.6 g/dL *LOW* *LOW* *LOW* (01/02/2013 04:38:00) (01/01/2013 02:01:00) (12/31/2012 02:09:00) Hct [42.0-54.0 %] 37.0 % 35.8 % 35.7 % *LOW* *LOW* *LOW* (01/02/2013 04:38:00) (01/01/2013 02:01:00) (12/31/2012 02:09:00) MCV [80.0-94.0 fL] 92.5 fL 91.9 fL 92.6 fL (01/02/2013 04:38:00) (01/01/2013 02:01:00) (12/31/2012 02:09:00) MCH [27.0-31.0 pg] 32.6 pg 32.6 pg 32.8 pg *HI* *HI* *HI* (01/02/2013 04:38:00) (01/01/2013 02:01:00) (12/31/2012 02:09:00) MCHC [32.0-36.0 g/dL] 35.2 g/dL 35.5 g/dL 35.4 g/dL (01/02/2013 04:38:00) (01/01/2013 02:01:00) (12/31/2012 02:09:00) RDW [11.5-14.5 %] 12.9 % 12.9 % 13.0 % (01/02/2013 04:38:00) (01/01/2013 02:01:00) (12/31/2012 02:09:00) Platelet [133-450 K/CMM] 135 K/CMM 124 K/CMM 124 K/CMM (01/02/2013 04:38:00) *LOW* *LOW* (01/01/2013 02:01:00) (12/31/2012 02:09:00) MPV [7.4-10.4 fL] 8.0 fL 8.0 fL 7.7 fL (01/02/2013 04:38:00) (01/01/2013 02:01:00) (12/31/2012 02:09:00) Segs [45.0-75.0 %] 77.3 % 72.8 % 76.1 % *HI* (01/01/2013 02:01:00) *HI* (01/02/2013 04:38:00) (12/31/2012 02:09:00) Lymphocytes [20.0-40.0 %] 10.1 % 13.8 % 13.8 % *LOW* *LOW* *LOW* (01/02/2013 04:38:00) (01/01/2013 02:01:00) (12/31/2012 02:09:00) Monocytes [2.0-12.0 %] 8.0 % 9.4 % 8.1 % (01/02/2013 04:38:00) (01/01/2013 02:01:00) (12/31/2012 02:09:00) Eosinophils [0.0-4.0 %] 4.3 % 3.6 % 1.7 % *HI* (01/01/2013 02:01:00) (12/31/2012 02:09:00) (01/02/2013 04:38:00) Basophils [0.0-1.0 %] 0.3 % 0.4 % 0.3 % (01/02/2013 04:38:00) (01/01/2013 02:01:00) (12/31/2012 02:09:00) Segs-Bands # [1.5-8.1 K/CMM] 5.3 K/CMM 4.5 K/CMM 5.5 K/CMM (01/02/2013 04:38:00) (01/01/2013 02:01:00) (12/31/2012 02:09:00) Lymphocytes # [1.0-5.5 0.7 K/CMM 0.9 K/CMM 1.0 K/CMM K/CMM] *LOW* *LOW* (12/31/2012 02:09:00) (01/02/2013 04:38:00) (01/01/2013 02:01:00) Monocytes # [0.0-0.8 K/CMM] 0.5 K/CMM 0.6 K/CMM 0.6 K/CMM (01/02/2013 04:38:00) (01/01/2013 02:01:00) (12/31/2012 02:09:00) Eosinophils # [0.0-0.5 0.3 K/CMM 0.2 K/CMM 0.1 K/CMM K/CMM] (01/02/2013 04:38:00) (01/01/2013 02:01:00) (12/31/2012 02:09:00)
--- OUTSIDE RECORDS SUMMARY | 2018-05-12 04:42 | XMS REPORT | CCD ---
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
--- OUTSIDE RECORDS SUMMARY | 2018-05-12 04:42 | XMS REPORT | CCD ---
:1930 Author Organization [facility] Team Providers Name Role Phone Tiesha Cason [...]
--- OUTSIDE RECORDS SUMMARY | 2018-05-12 04:42 | XMS REPORT | CCD ---
:1930 Author Organization [facility] Care Team Providers Name Role Phone Augie [...] oldest [Reference Range]: 1 Height 170.18 cm (10/24/2012 09:44:00) Systolic Blood Pressure [90-140 mmHg] 124 mmHg (10/24/2012 09:45:00) Diastolic Blood Pressure [60-90 mmHg] 63 mmHg (10/24/2012 09:45:00) Respiratory Rate [14-20 BRMIN] 16 BRMIN (10/24/2012 09:45:00) Peripheral Pulse Rate [60-100 bpm] 53 bpm *LOW* (10/24/2012 09:45:00) Weight 75.000 kg (10/24/2012 09:44:00)
--- OUTSIDE RECORDS SUMMARY | 2018-05-12 04:43 | XMS REPORT | Summary of Care ---
:1930 Author Encounter FORD Vasquez(ABI) [id number] Date(s): 12/02/14 - 12/03/[address] [address] [facility] Discharge Disposition: Home Physician Attending: Tiesha Cason MD Physician_Referring: Tiesha Cason MD Reason for Visit LOUD SNORING Problem List Condition Effective Dates Status Health Status Informant AF (atrial fibrillation)(Confirmed) Resolved BPH(Confirmed) Active Cancer of colon(Confirmed) Resolved CVA (cerebral vascular 2010 Resolved accident)(Confirmed) Dementia, vascular(Confirmed) 2008 Resolved Dysphagia(Confirmed) Resolved HTN - Hypertension(Confirmed) Active Hyponatremia(Confirmed) Resolved Impaired physical mobility Active (specify)(Confirmed) 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 MELECIO - Obstructive sleep Active apnea(Confirmed) MELECIO - Obstructive sleep Active apnea(Confirmed) Psoriasis(Confirmed) Resolved Retention of urine(Confirmed)1 Active Seizures complicating intracranial Resolved hemorrhage(Confirmed) Skin at risk of Resolved breakdown(Confirmed)(Improving) Stroke(Confirmed) Active TIA (transient ischemic 1994 Resolved attack)(Confirmed) 1needs straight cath every 6 hrs or as needed if bladder is distended Allergies, Adverse Reactions, Alerts Substance Reaction Severity Status NKDA Active Medications No data available for this section Medications Administered During Your Visit No data available for this section Immunizations No data available for this section Social History Social History Type Response Substance Abuse 1 Exercise Times per week: 3-4 times/week2 Employment/School 3 Alcohol Use: Never, Previous treatment: None, Has alcohol use interfered with work or home life? No, Do you ever drink more than intended? No, Has anyone been hurt or at risk by your drinking? No, Ready to change: No, Concerns about alcohol use in household: No4 Smoking Status Never smoker, Type: Cigarettes, Exposure to Tobacco Smoke None, Cigarette Smoking Last 365 Days No, Reg Smoking Cessation Counseling No [id number], 2 [id number]
--- OUTSIDE RECORDS SUMMARY | 2018-05-12 04:43 | XMS REPORT | Summary of Care ---
:1930 Author Encounter FORD Vasquez(ABI) [id number] Date(s): 12/19/14 - 12/19/14 [facility] Outpatient Imaging [address] Discharge Disposition: Home Physician Attending: Angel Rojas MD Reason for Visit 560.9 - INTESTINAL OBST Vital Signs Most recent to oldest [Reference Range]: 1 Height 170.18 cm (12/19/14 8:51 AM) Weight 65.455 kg (12/19/14 8:51 AM) Body Mass Index 22.6 m2 (12/19/14 8:51 AM) Problem List Condition Effective Dates Status Health [...] Days No, Reg Smoking Cessation Counseling No [id number], 2 [id number]
--- OUTSIDE RECORDS SUMMARY | 2018-05-12 04:43 | XMS REPORT | CCD ---
:1930 Author Organization [facility] Care Team Providers Name Role Phone Tiesha Cason [...] Medication Instructions Start Date End Date Status melatonin 3 mg oral tablet 3 mg=1 tab, PO, Bedtime, for 01/01/2014 Ordered insomnia, # 60 tab, 0 Refill(s) aspirin 325 mg tablet 325 mg=1 tab, PO, Daily, # 90 01/01/2014 Ordered tab, 0 Refill(s) SEROquel 12.5 mg, PO, Bedtime, take 1/2 tablet, 0 Refill(s) 01/01/2014 Ordered take 1/2 tablet hydrochlorothiazide 12.5 mg, PO, QID, 0 Refill(s) 01/01/2014 Ordered Vital Signs Most recent to oldest [Reference Range]: 1 Height 170.18 cm (01/01/2014 08:51:00) Systolic Blood Pressure [90-140 mmHg] 139 mmHg (01/01/2014 08:53:00) Diastolic Blood Pressure [60-90 mmHg] 63 mmHg (01/01/2014 08:53:00) Respiratory Rate [14-20 BRMIN] 18 BRMIN (01/01/2014 08:53:00) Peripheral Pulse Rate [60-100 bpm] 55 bpm *LOW* (01/01/2014 08:53:00) Weight 70.455 kg (01/01/2014 08:51:00)
--- OUTSIDE RECORDS SUMMARY | 2018-05-12 04:43 | XMS REPORT | Summary of Care ---
:1930 Author Encounter FORD Vasquez(ABI) [id number] Date(s): 10/30/14 - 10/30/[address] Discharge Disposition: Home Physician Attending: Angel Rojas MD Physician_Referring: Angel Rojas MD Reason for Visit GI CONSULT Vital Signs Most recent to oldest [Reference Range]: 1 Height 170.18 cm (10/30/14 1:02 PM) Systolic Blood Pressure [90-140 mmHg] 152 mmHg *HI* (10/30/14 1:02 PM) Diastolic Blood Pressure [60-90 mmHg] 65 mmHg (10/30/14 1:02 PM) Peripheral Pulse Rate [60-100 bpm] 54 bpm *LOW* (10/30/14 1:02 PM) Weight 68.182 kg (10/30/14 1:02 PM) Body Mass Index 23.54 m2 (10/30/14 1:02 PM) Problem List Condition Effective Dates Status Health [...] Substance Reaction Severity Status NKDA Active Medications Dexilant 60 mg oral delayed release capsule 60 mg=1 cap, PO, Daily, # 15 cap, 0 Refill(s), given to patient Start Date: 10/30/14 Status: Ordered Medications Administered During Your Visit No data available for this section Immunizations No data available for this section Social History Social History Type Response Substance Abuse 1 Exercise Times per week: 3-4 times/week2 Employment/School 3 Alcohol 4 Smoking Status Never smoker, Type: Cigarettes, Exposure to Tobacco Smoke None, Cigarette Smoking Last 365 Days No, Reg Smoking Cessation Counseling No [id number], 2 [id number]
--- OUTSIDE RECORDS SUMMARY | 2018-05-12 04:43 | XMS REPORT | CCD ---
:1930 Author Organization [facility] Team Providers Name Role Phone Tiesha Cason [...]
--- OUTSIDE RECORDS SUMMARY | 2018-05-12 04:43 | XMS REPORT | Summary of Care ---
:1930 Author Encounter Dates Location Diagnoses Discharge Disposition Providers 01/09/2014 - [facility] Home Angel Rojas 01/09/2014 [address] [facility] Physician, [facility] [address] Reason for Visit SMALL BOWEL OBSTRUCTION Vital Signs Most recent to oldest [Reference Range]: 1 Height 170.18 cm (01/09/2014 12:26:00 [facility]) Systolic Blood Pressure [90-140 mmHg] 144 mmHg *HI* (01/09/2014 12:26:00 [facility]) Diastolic Blood Pressure [60-90 mmHg] 67 mmHg (01/09/2014 12:26:00 [facility]) Peripheral Pulse Rate [60-100 bpm] 65 bpm (01/09/2014 12:26:00 [facility]) Weight 71.364 kg (01/09/2014 12:26:00 [facility]) Body Mass Index 24.64 m2 (01/09/2014 12:26:00 [facility]) Problem List Condition Effective Dates Status Health Status Informant AF (atrial fibrillation)(Confirmed) Resolved BPH(Confirmed) Active Cancer of colon(Confirmed) Resolved CVA (cerebral vascular 2010 Resolved accident)(Confirmed) Dementia, vascular(Confirmed) 2008 Resolved Dysphagia(Confirmed) Resolved HTN - Hypertension(Confirmed) Active Hyponatremia(Confirmed) Resolved Impaired physical mobility Active (specify)(Confirmed) 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 MELECIO - Obstructive sleep Active apnea(Confirmed) Psoriasis(Confirmed) Resolved Retention of urine(Confirmed)1 Active Seizures complicating intracranial Resolved hemorrhage(Confirmed) Skin at risk of Resolved breakdown(Confirmed/Improving) Stroke(Confirmed) Active TIA (transient ischemic 1994 Resolved attack)(Confirmed) 1needs straight cath every 6 hrs or as needed if bladder is distended Allergies, Adverse Reactions, Alerts Substance Reaction Severity Status NKDA Active Medications Medication Instructions Start Date Stop Date Status Benicar 20 mg oral tablet 20 mg=1 tab, PO, Daily, # 90 01/09/2014 Ordered tab, 0 Refill(s) Medications Administered During Your Visit No data available for this section Immunizations No data available for this section Procedures Procedure Type Body Site Date of Procedure Related Diagnosis Cholecystectomy 2010 Social History Social History Type Response Substance Abuse 1 Exercise Exercise duration: 60. 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 Type: Cigarettes. Started age 16.0 Years. Stopped age 31 Years. Tobacco smoke exposure: None. Did the Patient Smoke Cigarettes Anytime During the Last 365 Days? No. Cessation Counseling Provided? No. [id number], 2 [id number]
--- OUTSIDE RECORDS SUMMARY | 2018-05-12 04:43 | XMS REPORT | Summary of Care ---
:1930 Author Organization [facility] Address [address] [place] [id number]- Encounter HQ Caesarr_devora(FIN) [id number] Date(s): 08/17/15 - 08/17/[address] Professional Services provided by [facility] [place] [address]- Discharge Diagnosis: Acute UTI Discharge Disposition: Home Attending Physician: Denys Bruno MD Vital Signs Most recent to oldest [Reference Range]: 1 2 3 Height 170.18 cm (08/17/15 9:44 AM) Most recent to oldest 1 2 3 [Reference Range]: Temperature Oral [96.4-99.1 97.7 DegF 97.2 DegF 97.0 DegF DegF] (08/17/15 7:28 PM) (08/17/15 6:41 PM) (08/17/15 2:00 PM) Most recent to oldest [Reference Range]: 1 2 3 Blood Pressure [90-140/60-90 mmHg] 209/66 mmHg 200/85 mmHg *HI* *HI* (08/17/15 7:28 PM) (08/17/15 6:09 PM) Systolic Blood Pressure [90-140 mmHg] 188 mmHg *HI* (08/17/15 6:41 PM) Most recent to oldest [Reference Range]: 1 2 3 Diastolic Blood Pressure [60-90 mmHg] 81 mmHg (08/17/15 6:41 PM) Most recent to oldest 1 2 3 [Reference Range]: Respiratory Rate [14-20 BRMIN] 20 BRMIN 23 BRMIN 28 BRMIN (08/17/15 7:28 PM) *HI* *HI* (08/17/15 6:41 PM) (08/17/15 6:09 PM) Most recent to oldest [Reference Range]: 1 2 3 Peripheral Pulse Rate [60-100 bpm] 50 bpm *LOW* (08/17/15 9:44 AM) Most recent to oldest [Reference Range]: 1 2 3 Weight 65.909 kg (08/17/15 9:44 AM) Most recent to oldest [Reference Range]: 1 2 3 Body Mass Index 22.76 m2 (08/17/15 9:44 AM) Problem List Condition Effective Dates Status Health Status Informant AF (atrial fibrillation)(Confirmed) Resolved Bowel obstruction(Confirmed) Resolved BPH(Confirmed) Active Cancer of colon(Confirmed) Resolved CVA (cerebral vascular 2010 Resolved accident)(Confirmed) Dementia, vascular(Confirmed) 2008 Active Dysphagia(Confirmed) Resolved HTN - Hypertension(Confirmed) Active Hyponatremia(Confirmed) Resolved Impaired physical mobility Active (specify)(Confirmed) 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 MRSA(Confirmed) Resolved MELECIO - Obstructive sleep Active apnea(Confirmed) MELECIO - Obstructive sleep Active apnea(Confirmed) Psoriasis(Confirmed) Resolved Retention of urine(Confirmed)1 Active Seizures complicating intracranial Resolved hemorrhage(Confirmed) Shingles(Confirmed) Resolved Skin at risk of Resolved breakdown(Confirmed)(Improving) Stroke(Confirmed) Active TIA (transient ischemic 1994 Resolved attack)(Confirmed) 1needs straight cath every 6 hrs or as needed if bladder is distended Allergies, Adverse Reactions, Alerts Substance Reaction Severity Status NKDA Active Medications cefTRIAXone 1 gm, Route: IVPB, Drug form: PDR/INJ, ONCE, Dosing Weight 65.909, kg, Priority : STAT, Start date: 08/17/15 14:42:00, Stop date: 08/17/15 14:42:00 Notes: (Same As: Rocephin).Use with 100ml NS mini-bag PLUS and infuse over 30 min MEDICATION WASTE Product Size: 1000 mgProduct Wasted: ___ mg Start Date: 08/17/15 Stop Date: 08/17/15 Status: CompletedCipro 400 mg, 200 mL, Route: IVPB, Drug form: INJ, ONCE, Dosing Weight 65.909, kg, Priority: STAT, Start date: 08/17/15 18:32:00, Stop date: 08/17/15 18:32:00 Notes: Do not refrigerate Start Date: 08/17/15 Stop Date: 08/17/15 Status: CompletedCipro 500 mg oral tablet 500 mg=1 tab, PO, Q12H, X 14 day, # 28 tab, 0 Refill(s) Start Date: 08/17/15 Stop Date: 08/31/15 Status: Orderedmorphine Sulfate 4 mg, 1 mL, Route: IVP, Drug form: INJ, ONCE, Dosing Weight 65.909, kg, Priority : STAT, Start date: 08/17/15 11:56:00, Stop date: 08/17/15 11:56:00 Notes: (Same as:MORPhine Sulfate) Start Date: 08/17/15 Stop Date: 08/17/15 Status: CompletedOmnipaque 350mg/ml 86 mL, Route: IVP, Drug Form: SOLN, Dosing Weight 65.909, kg, ONCALL, STAT, Start date: 08/17/15 12:29:00, Duration: 1 doses or times, Stop date: 08/17/15 21:00:00, Dose=2.2ml/kg, Max mcjx=148cb -- "To be infused by Radiology Staff ONLY" Special Instructions: Dose=2.2ml/kg, Max yrgs=429rd -- "To be infused by Radiology Staff ONLY" Notes: (same as:Omnipaque 350). Start Date: 08/17/15 Stop Date: 08/17/15 Status: Completedondansetron 4 mg, 2 mL, Route: IVP, Drug form: INJ, ONCE, Dosing Weight 65.909, kg, Priority : STAT, Start date: 08/17/15 11:56:00, Stop date: 08/17/15 11:56:00 Notes: (Same as: Leonid) MEDICATION WASTE Product Size: 4 mgProduct Wasted: ___ mg Start Date: 08/17/15 Stop Date: 08/17/15 Status: CompletedPhenergan 25 mg rectal suppository 25 mg=1 supp, NJ, Q8H, # 30 supp, 0 Refill(s) Start Date: 08/17/15 Stop Date: 08/28/15 Status: OrderedSaline Flush 0.9% 10 mL, Route: MISC, Drug Form: INJ, Dosing Weight 65.909, kg, PRN, PRN Line Flush, Start date: 08/17/15 11:56:00, Duration: 30 day, Stop date: 09/16/15 11: 55:00 Notes: (Same as: BD Posiflush) Start Date: 08/17/15 Stop Date: 08/17/15 Status: DiscontinuedSodium Chloride 0.9% (Bolus) IV 1,000 mL, 1000 ml/hr, Infuse Over: 1 hr, Route: IV, 1,000, Drug form: INJ, ONCE , Priority: STAT, Dosing Weight 65.909 kg, Start date: 08/17/15 11:56:00, Duration: 1 doses or times, Stop date: 08/17/15 11:56:00 Start Date: 08/17/15 Stop Date: 08/17/15 Status: Completed Results ELECTROLYTES Most recent to oldest [Reference Range]: 1 Sodium Lvl [135-145 mEq/L] 137 mEq/L (08/17/15 12:45 PM) Potassium Lvl [3.5-5.1 mEq/L] 4.9 mEq/L (08/17/15 12:45 PM) Chloride Lvl [95-109 mEq/L] 102 mEq/L (08/17/15 12:45 PM) CO2 [24-32 mEq/L] 31 mEq/L (08/17/15 12:45 PM) AGAP [10.0-20.0 mEq/L] 8.9 mEq/L *LOW* (08/17/15 12:45 PM) CHEM PANEL Most recent to oldest [Reference Range]: 1 Creatinine Lvl [0.5-1.4 mg/dL] 1.1 mg/dL (08/17/15 12:45 PM) eGFR 61 mL/min/1.73m2 1 *NA* (08/17/15 12:45 PM) BUN [7-22 mg/dL] 16 mg/dL (08/17/15 12:45 PM) B/C Ratio [6-25] 15 (08/17/15 12:45 PM) Glucose Lvl [70-99 mg/dL] 102 mg/dL *HI* (08/17/15 12:45 PM) Total Protein [6.4-8.4 g/dL] 6.7 g/dL (08/17/15 12:45 PM) Albumin Lvl [3.5-5.0 g/dL] 3.5 g/dL (08/17/15 12:45 PM) Globulin [2.0-4.0 g/dL] 3.2 g/dL (08/17/15 12:45 PM) A/G Ratio [0.7-1.6] 1.1 (08/17/15 12:45 PM) Calcium Lvl [8.5-10.5 mg/dL] 10.2 mg/dL (08/17/15 12:45 PM) ALT [0-65 unit/L] 10 unit/L (08/17/15 12:45 PM) AST [0-37 unit/L] 19 unit/L (08/17/15 12:45 PM) Alk Phos [39-136 unit/L] 109 unit/L (08/17/15 12:45 PM) Bili Total [0.2-1.3 mg/dL] 0.4 mg/dL (08/17/15 12:45 PM) Lipase Lvl [73-393 unit/L] 147 unit/L (08/17/15 12:45 PM) 1Result Comment: The eGFR is calculated using [...] eGFR should be multiplied by the estimated BMI.URINE AND STOOL Most recent to oldest [Reference Range]: 1 UA Turbidity [Clear] Cloudy *ABN* (08/17/15 12:45 PM) UA Color [Yellow] Yellow *NA* (08/17/15 12:45 PM) UA pH [5.0-8.0] 7.5 (08/17/15 12:45 PM) UA Spec Grav [<=1.030] 1.010 (08/17/15 12:45 PM) UA Glucose [Negative] Negative (08/17/15 12:45 PM) UA Blood [Negative] Negative (08/17/15 12:45 PM) UA Ketones [Negative] Negative *NA* (08/17/15 12:45 PM) UA Protein [Negative] Negative (08/17/15 12:45 PM) UA Urobilinogen [0.1-1.0 EU/dL] 0.2 EU/dL (08/17/15 12:45 PM) UA Bili [Negative] Negative *NA* (08/17/15 12:45 PM) UA Leuk Est [Negative] Large *ABN* (08/17/15 12:45 PM) UA Nitrite [Negative] Negative (08/17/15 12:45 PM) UA WBC [None Seen /HPF] >100 /HPF *ABN* (08/17/15 12:45 PM) UA RBC [0-2 /HPF] 3-5 /HPF *ABN* (08/17/15 12:45 PM) UA Bacteria [None Seen /HPF] Moderate /HPF (08/17/15 12:45 PM) UA Sq Epi [Few] None Seen (08/17/15 12:45 PM) HEMATOLOGY Most recent to oldest [Reference Range]: 1 WBC [3.7-10.4 K/CMM] 7.3 K/CMM (08/17/15 12:45 PM) RBC [4.70-6.10 M/CMM] 3.64 M/CMM *LOW* (08/17/15 12:45 PM) Hgb [14.0-18.0 g/dL] 12.0 g/dL *LOW* (08/17/15 12:45 PM) Hct [42.0-54.0 %] 35.4 % *LOW* (08/17/15 12:45 PM) MCV [80.0-94.0 fL] 97.3 fL *HI* (08/17/15 12:45 PM) MCH [27.0-31.0 pg] 32.9 pg *HI* (08/17/15 12:45 PM) MCHC [32.0-36.0 g/dL] 33.8 g/dL (08/17/15 12:45 PM) RDW [11.5-14.5 %] 14.0 % (08/17/15 12:45 PM) Platelet [133-450 K/CMM] 222 K/CMM (08/17/15 12:45 PM) MPV [7.4-10.4 fL] 8.2 fL (08/17/15 12:45 PM) Segs [45.0-75.0 %] 74.0 % (08/17/15 12:45 PM) Lymphocytes [20.0-40.0 %] 15.1 % *LOW* (08/17/15 12:45 PM) Monocytes [2.0-12.0 %] 7.5 % (08/17/15 12:45 PM) Eosinophils [0.0-4.0 %] 2.4 % (08/17/15 12:45 PM) Basophils [0.0-1.0 %] 1.0 % (08/17/15 12:45 PM) Segs-Bands # [1.5-8.1 K/CMM] 5.4 K/CMM (08/17/15 12:45 PM) Lymphocytes # [1.0-5.5 K/CMM] 1.1 K/CMM (08/17/15 12:45 PM) Monocytes # [0.0-0.8 K/CMM] 0.5 K/CMM (08/17/15 12:45 PM) Eosinophils # [0.0-0.5 K/CMM] 0.2 K/CMM (08/17/15 12:45 PM) Basophils # [0.0-0.2 K/CMM] 0.1 K/CMM (08/17/15 12:45 PM) Immunizations No data available for this section Procedures Procedure Date Related Diagnosis Body Site Cholecystectomy 2011 Bilateral repair of inguinal hernia, direct1 Complete repair of rotator cuff2 Complete resection of colon Excision of gallbladder Manipulation of deviated nasal septum 1procedure x 32right shoulder, with small pin inserted Social History Social History Type Response Substance Abuse 1 Exercise Exercise duration: 60. 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 Alcohol use interferes with work or home: No. Drinks more than intended: No. Others hurt by drinking: No. Ready to change: No. Household alcohol concerns: No.4 Smoking Status Former smoker; Type: Cigarettes; Number of years: 14; Started at age: 15.0; Stopped at age: 31; Exposure to Tobacco Smoke None; Cigarette Smoking Last 365 Days No; Reg Smoking Cessation Counseling No [id number], 2 [id number] Assessment and Plan No data available for this section
--- OUTSIDE RECORDS SUMMARY | 2018-05-12 04:43 | XMS REPORT | Summary of Care ---
:1930 Author Encounter FORD Vasquez(ABI) [id number] Date(s): 12/25/14 - 12/26/[address] [address] [facility] Discharge Disposition: Home Physician Attending: Tiesha Cason MD Physician_Referring: Tiesha Cason MD Reason for Visit MELECIO Problem List Condition Effective Dates Status Health [...] Days No, Reg Smoking Cessation Counseling No [id number], 2 [id number]
--- OUTSIDE RECORDS SUMMARY | 2018-05-12 04:43 | XMS REPORT | CCD ---
:1930 Author Organization [facility] Care Team Providers Name Role Phone Tiesha [...]
--- OUTSIDE RECORDS SUMMARY | 2018-05-12 04:43 | XMS REPORT | Summary of Care ---
:1930 Author Encounter FORD Vasquez(ABI) [id number] Date(s): 10/15/14 - 10/15/[address] [address] [facility] Discharge Disposition: Home Physician Attending: Tiesha Cason MD Physician_Referring: Tiesha Cason MD Reason for Visit F/U Vital Signs Most recent to oldest [Reference Range]: 1 Height 170.18 cm (10/15/14 10:18 AM) Systolic Blood Pressure [90-140 mmHg] 156 mmHg *HI* (10/15/14 10:18 AM) Diastolic Blood Pressure [60-90 mmHg] 72 mmHg (10/15/14 10:18 AM) Respiratory Rate [14-20 BRMIN] 18 BRMIN (10/15/14 10:18 AM) Peripheral Pulse Rate [60-100 bpm] 55 bpm *LOW* (10/15/14 10:18 AM) Weight 68.182 kg (10/15/14 10:18 AM) Body Mass Index 23.54 m2 (10/15/14 10:18 AM) Problem List Condition Effective Dates Status [...] Substance Reaction Severity Status NKDA Active Medications mirtazapine 7.5 mg oral tablet 7.5 mg=1 tab, PO, Bedtime, # 30 tab, 0 Refill(s) Start Date: 10/15/14 Status: Orderedphenytoin 100 mg, QID, 0 Refill(s) Start Date: 10/15/14 Status: Ordered Medications Administered During Your Visit No data available for this section Immunizations No data available for this section Social History Social History Type Response Substance Abuse 1 Exercise Times per week: 3-4 times/week2 Employment/School 3 Alcohol 4 Smoking Status Former smoker, Type: Cigarettes, Exposure to Tobacco Smoke None , Cigarette Smoking Last 365 Days No, Reg Smoking Cessation Counseling No [id number], 2 [id number]
--- OUTSIDE RECORDS SUMMARY | 2018-05-12 04:43 | XMS REPORT | Summary of Care ---
:1930 Author Organization [facility] Address [address] [place] [id number]- Encounter HQ Dona_devora(ABI) [id number] Date(s): 08/02/15 - 08/14/[address] Professional Services provided by [facility] [place] [address]- Discharge Disposition: Home Attending Physician: Alex Fofana MD Admitting Physician: Mono Curtis MD Vital Signs Most recent to oldest [Reference Range]: 1 2 3 Height 170.18 cm 170.18 cm (08/02/15 7:24 PM) (08/02/15 9:27 AM) Most recent to oldest 1 2 3 [Reference Range]: Temperature Oral [96.4-99.1 98.0 DegF 97.7 DegF 97.6 DegF DegF] (08/14/15 10:46 AM) (08/14/15 8:08 AM) (08/14/15 3:36 AM) Most recent to oldest 1 2 3 [Reference Range]: Blood Pressure [90-140/60-90 119/64 mmHg 129/57 mmHg 112/53 mmHg mmHg] (08/14/15 8:08 AM) (08/14/15 3:36 AM) (08/13/15 8:29 PM) Most recent to oldest 1 2 3 [Reference Range]: Respiratory Rate [14-20 BRMIN] 20 BRMIN 18 BRMIN 18 BRMIN (08/14/15 8:08 AM) (08/14/15 3:36 AM) (08/13/15 8:29 PM) Most recent to oldest 1 2 3 [Reference Range]: Peripheral Pulse Rate [60-100 68 bpm 60 bpm 80 bpm bpm] (08/14/15 8:08 AM) (08/14/15 3:36 AM) (08/13/15 8:29 PM) Most recent to oldest 1 2 3 [Reference Range]: Weight 30.909 kg 68.182 kg 67.273 kg (08/03/15 10:38 AM) (08/02/15 7:24 PM) (08/02/15 9:27 AM) Most recent to oldest [Reference Range]: 1 2 3 Body Mass Index 23.54 m2 23.23 m2 (08/02/15 7:24 PM) (08/02/15 9:27 AM) Problem List Condition Effective Dates Status [...] Substance Reaction Severity Status NKDA Active Medications acetaminophen 650 mg, 2 tab, Route: PO, Drug form: TAB, Q4H, Dosing Weight 67.273, kg, PRN Pain 1-3/Temp > 100.4 F, Start date: 08/02/15 17:27:00, Duration: 30 day, Stop date: 09/01/15 17:26:00 Notes: Do not exceed 4 gm/day. (Same as: Tylenol) Start Date: 08/02/15 Stop Date: 08/03/15 Status: Discontinuedacetaminophen-hydrocodone 325 mg-5 mg oral tablet 1 tab, Route: PO, Drug Form: TAB, Dosing Weight 67.273, kg, Q4H, PRN Pain Score 4-6, Start date: 08/02/15 17:27:00, Duration: 30 day, Stop date: 09/01/15 17:26: 00 Notes: (Same as: Piercy 325/5) Do not exceed 4gm/day of acetaminophen. Start Date: 08/02/15 Stop Date: 08/03/15 Status: DiscontinuedAdalat CC 90 mg, 1 tab, Route: PO, Drug form: ERTAB, ONCE, Start date: 08/02/15 22:17:00, Stop date: 08/02/15 22:17:00 Notes: (Same as:Adalat CC, Procardia XL) Give on empty stomach. Take 1 hour before or 2 hours aftermeal; "Avoid grapefruit and grapefruit juice". Do not crush Start Date: 08/02/15 Stop Date: 08/02/15 Status: Completedamantadine 100 mg, 1 cap, Route: PO, Drug form: CAP, Daily, Dosing Weight 68.182, kg, Start date: 08/03/15 9:00:00, Duration: 30 day, Stop date: 09/01/15 9:00:00 Notes: (Same as: Symmetrel) Start Date: 08/03/15 Stop Date: 08/03/15 Status: Discontinuedamantadine 100 mg oral capsule 100 mg=1 cap, PO, Daily, 0 Refill(s) Start Date: 08/02/15 Stop Date: 08/07/15 Status: Discontinuedaspirin 325 mg tablet 325 mg, 1 tab, Route: PO, Drug form: TAB, Daily, Dosing Weight 30.909, kg, Start date: 08/09/15 9:00:00, Duration: 30 day, Stop date: 09/07/15 9:00:00 Notes: Take with food. Start Date: 08/09/15 Stop Date: 08/14/15 Status: Discontinuedaspirin 325 mg tablet 325 mg, 1 tab, Route: PO, Drug form: TAB, Daily, Dosing Weight 68.182, kg, Start date: 08/03/15 9:00:00, Duration: 30 day, Stop date: 09/01/15 9:00:00 Notes: Take with food. Start Date: 08/03/15 Stop Date: 08/03/15 Status: DiscontinuedBenicar 20 mg, Route: PO, Drug form: TAB, Daily, Dosing Weight 30.909, kg, Start date: 08/09/15 9:00:00, Duration: 30 day, Stop date: 09/07/15 9:00:00 Start Date: 08/09/15 Stop Date: 08/08/15 Status: CanceledBenicar 20 mg, 1 tab, Route: PO, Drug form: TAB, ONCE, Start date: 08/02/15 22:17:00, Stop date: 08/02/15 22:17:00 Start Date: 08/02/15 Stop Date: 08/02/15 Status: CompletedBenicar 20 mg, 1 tab, Route: PO, Drug form: TAB, Daily, Dosing Weight 30.909, kg, Start date: 08/08/15 17:00:00, Duration: 30 day, Stop date: 09/07/15 9:00:00 Start Date: 08/08/15 Stop Date: 08/14/15 Status: DiscontinuedBenicar 20 mg, 1 tab, Route: PO, Drug form: TAB, Daily, Dosing Weight 68.182, kg, Start date: 08/02/15 22:32:00, Duration: 30 day, Stop date: 09/01/15 9:00:00 Start Date: 08/02/15 Stop Date: 08/03/15 Status: DiscontinuedBuSpar 10 mg, 1 tab, Route: PO, Drug form: TAB, Daily, Dosing Weight 30.909, kg, Start date: 08/09/15 9:00:00, Duration: 30 day, Stop date: 09/07/15 9:00:00 Notes: (Same As: BuSpar) Start Date: 08/09/15 Stop Date: 08/14/15 Status: DiscontinuedBuSpar 10 mg, 1 tab, Route: PO, Drug form: TAB, Daily, Dosing Weight 68.182, kg, Start date: 08/03/15 9:00:00, Duration: 30 day, Stop date: 09/01/15 9:00:00 Notes: (Same As: BuSpar) Start Date: 08/03/15 Stop Date: 08/03/15 Status: DiscontinuedBystolic 5 mg, 1 tab, Route: PO, Drug form: TAB, ONCE, Start date: 08/02/15 22:18:00, Stop date: 08/02/15 22:18:00 Notes: (same as: Carlene) Start Date: 08/02/15 Stop Date: 08/02/15 Status: CompletedBystolic 5 mg, 1 tab, Route: PO, Drug form: TAB, Daily, Dosing Weight 30.909, kg, Start date: 08/06/15 15:30:00, Duration: 30 day, Stop date: 09/05/15 9:00:00 Notes: (same as: Carlene) Start Date: 08/06/15 Stop Date: 08/14/15 Status: DiscontinuedBystolic 5 mg, 1 tab, Route: PO, Drug form: TAB, Daily, Dosing Weight 68.182, kg, Start date: 08/02/15 22:32:00, Duration: 30 day, Stop date: 09/01/15 9:00:00 Notes: (same as: Carlene) Start Date: 08/02/15 Stop Date: 08/03/15 Status: DiscontinuedBystolic 5 mg oral tablet 5 mg=1 tab, PO, Daily, # 30 tab, 0 Refill(s) Start Date: 08/02/15 Status: Orderedcalcium-vitamin D 600 mg-400 intl units oral tablet 1 tab, Route: PO, Dosing Weight 30.909, kg, BID, Start date: 08/09/15 9:00:00, Duration: 30 day, Stop date: 09/07/15 17:00:00 Start Date: 08/09/15 Stop Date: 08/09/15 Status: DeletedCalmoseptine topical ointment 1 appl, Route: TOP, TID, Drug form: OINT, Start date: 08/09/15 9:00:00, Duration : 30 day, Stop date:09/07/15 17:00:00 Notes: (Same as: Calmoseptine) Start Date: 08/09/15 Stop Date: 08/14/15 Status: DiscontinuedCentrum Men's 1 tab, PO, Daily, 0 Refill(s) Start Date: 08/02/15 Status: OrderedcloNIDine 0.2 mg/24 hr transdermal film, extended release 1 patch, Route: TOP, Drug Form: ERFILM, Dosing Weight 68.182, kg, Q7D, Start date: 08/02/15 21:00:00, Duration: 30 day, Stop date: 08/30/15 21:00:00 Notes: Patch delivers 0.2 mg/24 hours; Patch is applied weekly. "Remove old patch before application of new patch" (Same As: [id number]) Start Date: 08/02/15 Stop Date: 08/03/15 Status: DiscontinuedcloNIDine 0.3 mg/24 hr transdermal film, extended release 1 patch, TOP, Q7D, # 4 patch, 0 Refill(s) Start Date: 08/14/15 Stop Date: 09/11/15 Status: OrderedcloNIDine 0.3 mg/24 hr transdermal film, extended release 1 patch, Route: TOP, Drug Form: ERFILM, Dosing Weight 30.909, kg, Q7D, Start date: 08/03/15 21:00:00, Duration: 30 day, Stop date: 08/31/15 9:00:00 Notes: Patch delivers 0.3 mg/24 hours; Patch is applied weekly. [id number]. "Remove old patch before application of new patch" Start Date: 08/03/15 Stop Date: 08/14/15 Status: DiscontinuedColace 100 mg oral capsule 100 mg=1 cap, PO, BID, PRN Constipation, # 20 cap, 0 Refill(s) Start Date: 08/02/15 Status: OrderedDetrol LA 4 mg, 1 cap, Route: PO, Drug form: CAP, Daily, Start date: 08/03/15 9:00:00, Duration: 30 day, Stop date: 09/01/15 9:00:00 Notes: Do Not Crush. (Same As: Detrol LA) Start Date: 08/03/15 Stop Date: 08/03/15 Status: DiscontinuedDexilant 60 mg, Route: PO, Drug form: DRC, Daily, Dosing Weight 68.182, kg, Start date: 08/03/15 9:00:00, Duration: 30 day, Stop date: 09/01/15 9:00:00 Start Date: 08/03/15 Stop Date: 08/02/15 Status: DeletedDilantin 100 mg, 1 cap, Route: PO, Drug form: ERCAP, TID, Dosing Weight 30.909, kg, Start date: 08/07/15 9:00:00, Duration: 30 day, Stop date: 09/05/15 17:00:00 Notes: (Same as: Dilantin) Do not open, crush, or chew. Start Date: 08/07/15 Stop Date: 08/08/15 Status: DiscontinuedDilantin 200 mg, 2 cap, Route: PO, Drug form: ERCAP, ONCE, Start date: 08/09/15 21:00:00 , Stop date: 08/09/1521:00:00 Notes: (Same as: Dilantin) Do not open, crush, or chew. Start Date: 08/09/15 Stop Date: 08/09/15 Status: Completeddocusate 100 mg, 1 cap, Route: PO, Drug form: CAP, BID, Dosing Weight 67.273, kg, PRN Constipation, Start date: 08/02/15 17:27:00, Duration: 30 day, Stop date: 17:26:00 Notes: (Same as: Colace) (Do Not Crush) Start Date: 08/02/15 Stop Date: 08/03/15 Status: Discontinueddutasteride 0.5 mg, 1 cap, Route: PO, Drug form: CAP, Daily, Dosing Weight 68.182, kg, Start date: 08/03/15 9:00:00, Duration: 30 day, Stop date: 09/01/15 9:00:00 Notes: Non-Formulary Drug. (Same As: Avodart) (Do Not Crush) Start Date: 08/03/15 Stop Date: 08/03/15 Status: Discontinuedechinacea oral tablet See Instructions, 0 Refill(s) Start Date: 08/02/15 Status: Orderedenalapril 5 mg, 1 tab, Route: PO, Drug form: TAB, Daily, Dosing Weight 30.909, kg, Start date: 08/07/15 9:00:00, Duration: 30 day, Stop date: 09/05/15 9:00:00 Notes: (Same as: Vasotec) Start Date: 08/07/15 Stop Date: 08/14/15 Status: Discontinuedfinasteride 5 mg, 1 tab, Route: PO, Drug form: TAB, Daily, Dosing Weight 30.909, kg, Start date: 08/07/15 9:00:00, Duration: 30 day, Stop date: 09/05/15 9:00:00 Notes: (Same as: Proscar) "Do Not Crush"Women of childbearing age should not touch or handle broken tablets Start Date: 08/07/15 Stop Date: 08/14/15 Status: Discontinuedfinasteride 5 mg oral tablet 5 mg=1 tab, PO, Daily, # 30 tab, 0 Refill(s) Start Date: 08/14/15 Stop Date: 09/13/15 Status: OrderedFlomax 0.4 mg, 1 cap, Route: PO, Drug form: CAP, After Breakfast, Dosing Weight 30.909 , kg, Start date: 08/04/15 8:30:00, Duration: 30 day, Stop date: 09/02/15 8:30: 00 Notes: (Same As: Flomax) "Do Not Crush" Start Date: 08/04/15 Stop Date: 08/07/15 Status: DiscontinuedFlomax 0.4 mg, 1 cap, Route: PO, Drug form: CAP, Bedtime, Dosing Weight 68.182, kg, Start date: 08/02/15 21:00:00, Duration: 30 day, Stop date: 08/31/15 21:00:00 Notes: (Same As: Flomax) "Do Not Crush" Start Date: 08/02/15 Stop Date: 08/03/15 Status: Discontinuedheparin 5,000 unit, 1 mL, Route: SUB-Q, Drug form: INJ, Q8H, Dosing Weight 30.909, kg, Start date: 08/06/15 0:00:00, Duration: 30 day, Stop date: 09/04/15 16:00:00 Notes: porcine heparin Start Date: 08/06/15 Stop Date: 08/14/15 Status: DiscontinuedhydrALAZINE 50 mg, 1 tab, Route: PO, Drug form: TAB, Q6H, Dosing Weight 30.909, kg, Start date: 08/08/15 13:00:00, Duration: 30 day, Stop date: 09/07/15 12:00:00 Notes: (Same as: Apresoline) May interfere w/enteral feedings Take With Food Start Date: 08/08/15 Stop Date: 08/14/15 Status: DiscontinuedhydrALAZINE 20 mg, 1 mL, Route: IVP, Drug form: INJ, Q4H, Dosing Weight 30.909, kg, PRN Elevated BP, Use if HR<80, Start date: 08/03/15 20:41:00, Duration: 30 day, Stop date: 09/02/15 20:40:00, SBP>160 mmHg Notes: (Same as: Apresoline)Push over 5 minutes Start Date: 08/03/15 Stop Date: 08/08/15 Status: DiscontinuedhydrALAZINE 50 mg, 1 tab, Route: PO, Drug form: TAB, Q6H, Dosing Weight 68.182, kg, Start date: 08/03/15 0:00:00, Duration: 30 day, Stop date: 09/01/15 18:00:00 Notes: (Same as: Apresoline) May interfere w/enteral feedings Take With Food Start Date: 08/03/15 Stop Date: 08/03/15 Status: DiscontinuedhydrALAZINE 100 mg, 2 tab, Route: PO, Drug form: TAB, Q8H-05, Dosing Weight 68.182, kg, Start date: 08/03/15 13:00:00, Stop date: 09/02/15 5:00:00 Notes: (Same as: Apresoline) May interfere w/enteral feedings Take With Food Start Date: 08/03/15 Stop Date: 08/03/15 Status: Discontinuedhydrochlorothiazide 12.5 mg, 1 cap, Route: PO, Drug form: CAP, Daily, Dosing Weight 30.909, kg, Start date: 08/09/15 9:00:00, Duration: 30 day, Stop date: 09/07/15 9:00:00 Notes: (Same as: Microzide) With food. Start Date: 08/09/15 Stop Date: 08/14/15 Status: Discontinuedhydrochlorothiazide 12.5 mg, 1 cap, Route: PO, Drug form: CAP, Daily, Dosing Weight 68.182, kg, Start date: 08/02/15 22:32:00, Duration: 30 day, Stop date: 09/01/15 9:00:00 Notes: (Same as: Microzide) With food. Start Date: 08/02/15 Stop Date: 08/03/15 Status: DiscontinuedJalyn oral capsule See Instructions, 1 cap PO Daily, 0 Refill(s) Special Instructions: 1 cap PO Daily Start Date: 08/02/15 Stop Date: 08/07/15 Status: Discontinuedlabetalol 10 mg, 2 mL, Route: IV, Drug form: INJ, Q4H, Dosing Weight 30.909, kg, PRN See Nurse's Notes, Use ifHR>80, Start date: 08/03/15 20:42:00, Duration: 30 day, Stop date: 09/02/15 20:41:00, SBP>160mmHg Start Date: 08/03/15 Stop Date: 08/14/15 Status: Discontinuedlactobacillus acidophilus and bulgaricus 1 tab, Route: CHEW, Drug Form: CHEWTAB, Dosing Weight 30.909, kg, TID, Start date: 08/09/15 9:00:00,Duration: 30 day, Stop date: 09/07/15 17:00:00 Start Date: 08/09/15 Stop Date: 08/09/15 Status: Deletedlactobacillus rhamnosus GG 1 cap, Route: PO, Drug Form: CAP, BID, Start date: 08/09/15 9:30:00, Duration: 30 day, Stop date: 09/08/15 9:00:00 Notes: Same as Culturelle Start Date: 08/09/15 Stop Date: 08/14/15 Status: DiscontinuedLaMICtal 100 mg, 1 tab, Route: PO, Drug form: TAB, BID, Dosing Weight 68.182, kg, Start date: 08/03/15 9:00:00, Duration: 30 day, Stop date: 09/01/15 17:00:00 Notes: (Same as:LaMICtal) Start Date: 08/03/15 Stop Date: 08/03/15 Status: DiscontinuedLaMICtal 100 mg, 1 tab, Route: PO, Drug form: TAB, BID, Dosing Weight 30.909, kg, Start date: 08/07/15 9:00:00, Duration: 30 day, Stop date: 09/05/15 17:00:00 Notes: (Same as:LaMICtal) Start Date: 08/07/15 Stop Date: 08/14/15 Status: Discontinuedlevocetirizine 5 mg oral tablet 5 mg=1 tab, PO, QPM, # 30 tab, 1 Refill(s) Start Date: 08/02/15 Stop Date: 08/07/15 Status: Discontinuedmagnesium sulfate 2 gm, 50 mL, Route: IVPB, Drug form: INJ, Q2H, Dosing Weight 30.909, kg, Total dose=4 gm, Start date: 08/06/15 10:00:00, Duration: 2 doses or times, Stop date : 08/06/15 12:00:00 Start Date: 08/06/15 Stop Date: 08/06/15 Status: Completedmelatonin 3 mg, 1 tab, Route: PO, Drug form: TAB, Bedtime, Dosing Weight 68.182, kg, PRN as needed for insomnia, Start date: 08/02/15 20:20:00, Duration: 30 day, Stop date: 09/01/15 20:19:00 Notes: (Same as: Melatonin) Start Date: 08/02/15 Stop Date: 08/03/15 Status: Discontinuedmelatonin 3 mg oral tablet 3 mg=1 tab, PO, Bedtime, PRN for insomnia, # 60 tab, 0 Refill(s) Start Date: 08/02/15 Stop Date: 10/01/15 Status: Orderedmirtazapine 7.5 mg, 0.5 tab, Route: PO, Drug form: TAB, Bedtime, Dosing Weight 30.909, kg, Start date: 08/08/15 21:00:00, Duration: 30 day, Stop date: 09/06/15 21:00:00 Notes: (Same as:Remeron) Start Date: 08/08/15 Stop Date: 08/14/15 Status: Discontinuedmirtazapine 7.5 mg, 0.5 tab, Route: PO, Drug form: TAB, Bedtime, Dosing Weight 68.182, kg, Start date: 08/02/15 21:00:00, Duration: 30 day, Stop date: 08/31/15 21:00:00 Notes: (Same as:Remeron) Start Date: 08/02/15 Stop Date: 08/03/15 Status: DiscontinuedNeurontin 300 mg oral capsule 300 mg, 1 cap, Route: PO, Drug form: CAP, Bedtime, Dosing Weight 68.182, kg, Start date: 08/02/15 21:00:00, Duration: 30 day, Stop date: 08/31/15 21:00:00 Notes: (Same as: Neurontin) Start Date: 08/02/15 Stop Date: 08/03/15 Status: DiscontinuedNeutra-Phos 2 pkt, Route: PO, Drug Form: PDR/REC, Dosing Weight 30.909, kg, Daily, Start date: 08/12/15 9:00:00,Duration: 30 day, Stop date: 09/10/15 9:00:00 Notes: (Same as: Neutra-Phos) Each 1.25 gm pkt has 250mg phosphorous. Mix w/ 2.5oz water and stir. Start Date: 08/12/15 Stop Date: 08/13/15 Status: DiscontinuedNeutra-Phos 1 pkt, Route: PO, Drug Form: PDR/REC, Dosing Weight 30.909, kg, Q4Hnow, Start date: 08/07/15 7:00:00, Duration: 4 doses or times, Stop date: 08/07/15 19:00:00 Notes: (Same as: Neutra-Phos) Each 1.25 gm pkt has 250mg phosphorous. Mix w/ 2.5oz water and stir. Start Date: 08/07/15 Stop Date: 08/07/15 Status: DiscontinuedNeutra-Phos 2 pkt, Route: PO, Drug Form: PDR/REC, Dosing Weight 30.909, kg, TID-Meals, Start date: 08/08/15 17:00:00, Duration: 30 day, Stop date: 09/07/15 12:00:00 Notes: (Same as: Neutra-Phos) Each 1.25 gm pkt has 250mg phosphorous. Mix w/ 2.5oz water and stir. Start Date: 08/08/15 Stop Date: 08/12/15 Status: DiscontinuedNeutra-Phos 1 pkt, Route: PO, Drug Form: PDR/REC, Dosing Weight 30.909, kg, Q4H, Start date : 08/08/15 8:00:00, Duration: 3 doses or times, Stop date: 08/08/15 16:00:00 Notes: (Same as: Neutra-Phos) Each 1.25 gm pkt has 250mg phosphorous. Mix w/ 2.5oz water and stir. Start Date: 08/08/15 Stop Date: 08/08/15 Status: DiscontinuedNeutra-Phos 1 pkt, Route: PO, Drug Form: PDR/REC, Dosing Weight 30.909, kg, TID-Before Meals , Start date: 08/07/15 11:30:00, Duration: 2 day, Stop date: 08/09/15 7:30:00 Notes: (Same as: Neutra-Phos) Each 1.25 gm pkt has 250mg phosphorous. Mix w/ 2.5oz water and stir. Start Date: 08/07/15 Stop Date: 08/08/15 Status: DiscontinuedNIFEdipine 90 mg oral tablet, extended release 90 mg, 1 tab, Route: PO, Drug form: ERTAB, Daily, Dosing Weight 30.909, kg, Start date: 08/07/15 9:00:00, Duration: 30 day, Stop date: 09/05/15 9:00:00 Notes: (Same as:Adalat CC, Procardia XL) Give on empty stomach. Take 1 hour before or 2 hours aftermeal; "Avoid grapefruit and grapefruit juice". Do not crush Start Date: 08/07/15 Stop Date: 08/14/15 Status: DiscontinuedNIFEdipine 90 mg oral tablet, extended release 90 mg, 1 tab, Route: PO, Drug form: ERTAB, Daily, Dosing Weight 68.182, kg, Start date: 08/02/15 22:32:00, Duration: 30 day, Stop date: 09/01/15 9:00:00 Notes: (Same as:Adalat CC, Procardia XL) Give on empty stomach. Take 1 hour before or 2 hours aftermeal; "Avoid grapefruit and grapefruit juice". Do not crush Start Date: 08/02/15 Stop Date: 08/03/15 Status: DiscontinuedNS (Bolus) IV 500 mL, 500 ml/hr, Infuse Over: 1 hr, Route: IV, 500, Drug form: INJ, ONCE, Priority: STAT, Dosing Weight 67.273 kg, Start date: 08/02/15 12:05:00, Duration : 1 doses or times, Stop date: 08/02/15 12:05:00 Start Date: 08/02/15 Stop Date: 08/02/15 Status: CompletedNS 1,000 mL 1,000 mL, Rate: 100 ml/hr, Infuse over: 10 hr, Route: IV, Dosing Weight 67.273 kg, Total Volume: 1,000, Start date: 08/02/15 17:28:00, Duration: 30 day, Stop date: 09/01/15 17:27:00 Start Date: 08/02/15 Stop Date: 08/04/15 Status: Discontinuednystatin topical 100,000 units/g powder 1 appl, Route: TOP, TID, Drug form: PWDR, Start date: 08/11/15 13:00:00, Duration: 30 day, Stop date: 09/10/15 9:00:00 Notes: (Same as:Mycostatin, Nilstat) For external use only. Start Date: 08/11/15 Stop Date: 08/14/15 Status: Discontinuedondansetron 4 mg, 2 mL, Route: IVP, Drug form: INJ, Q6H, Dosing Weight 67.273, kg, PRN Nausea & Vomiting, Start date: 08/02/15 17:27:00, Duration: 30 day, Stop date: 09/01/15 17:26:00 Notes: (Same as: Leonid) MEDICATION WASTE Product Size: 4 mgProduct Wasted: ___ mg Start Date: 08/02/15 Stop Date: 08/14/15 Status: Discontinuedondansetron 4 mg, 2 mL, Route: IVP, Drug form: INJ, ONCE, Dosing Weight 67.273, kg, Priority : STAT, Start date: 08/02/15 11:14:00, Stop date: 08/02/15 11:14:00 Notes: (Same as: Zofran) MEDICATION WASTE Product Size: 4 mgProduct Wasted: ___ mg Start Date: 08/02/15 Stop Date: 08/02/15 Status: CompletedOyster-D 1 tab, Route: PO, Drug Form: TAB, BID, Start date: 08/09/15 9:30:00, Duration: 30 day, Stop date: 09/08/15 9:00:00 Notes: (calcium carbonate-vit D 500mg-400unit TAB) Same as: Oyster-D, OsCal-D Start Date: 08/09/15 Stop Date: 08/14/15 Status: Discontinuedphenytoin 100 mg, 1 cap, Route: PO, Drug form: ERCAP, QID, Dosing Weight 30.909, kg, Start date: 08/08/15 17:00:00, Duration: 30 day, Stop date: 09/07/15 13:00:00 Notes: (Same as: Dilantin) Do not open, crush, or chew. Start Date: 08/08/15 Stop Date: 08/09/15 Status: Discontinuedphenytoin 100 mg, 2 mL, Route: IVP, Drug form: INJ, Q12H, Dosing Weight 30.909, kg, Start date: 08/03/15 21:00:00, Duration: 30 day, Stop date: 09/02/15 9:00:00 Notes: (Same as: Dilantin) Do not infuse greater than 50 mg/min. MEDICATION WASTE Product Size: 100 mgProduct Wasted: 0 mg Start Date: 08/03/15 Stop Date: 08/07/15 Status: Discontinuedphenytoin 100 mg, 1 cap, Route: PO, Drug form: ERCAP, QID, Dosing Weight 68.182, kg, Start date: 08/02/15 21:00:00, Duration: 30 day, Stop date: 09/01/15 17:00:00 Notes: (Same as: Dilantin) Do not open, crush, or chew. Start Date: 08/02/15 Stop Date: 08/03/15 Status: Discontinuedphenytoin 400 mg, 4 cap, Route: PO, Drug form: ERCAP, Bedtime, Dosing Weight 30.909, kg, Start date: 08/10/15 21:00:00, Duration: 30 day, Stop date: 09/08/15 21:00:00 Notes: (Same as: Dilantin) Do not open, crush, or chew. Start Date: 08/10/15 Stop Date: 08/14/15 Status: Discontinuedphenytoin 100 mg oral capsule, extended release 400 mg=4 cap, PO, Bedtime, 0 Refill(s) Start Date: 08/09/15 Status: OrderedPlasmaLyte A PH-7.4 1,000 mL 1,000 mL, Rate: 100 ml/hr, Infuse over: 10 hr, Route: IV, Dosing Weight 30.909 kg, Total Volume: 1,000, Start date: 08/04/15 11:51:00, Duration: 30 day, Stop date: 09/03/15 11:50:00 Start Date: 08/04/15 Stop Date: 08/08/15 Status: DiscontinuedPlasmaLyte A PH-7.4 1,000 mL 1,000 mL, Rate: 100 ml/hr, Infuse over: 10 hr, Route: IV, Dosing Weight 67.273 kg, Total Volume: 1,000, Start date: 08/02/15 16:32:00, Duration: 30 day, Stop date: 09/01/15 16:31:00 Start Date: 08/02/15 Stop Date: 08/03/15 Status: Discontinuedpotassium chloride 10 mEq, 50 mL, Route: IVPB, Drug form: INJ, Q1H, Dosing Weight 30.909, kg, Total Dose=40 meq, Start date: 08/04/15 20:00:00, Duration: 4 doses or times, Stop date: 08/04/15 23:00:00, Peripheral Line Special Instructions: Peripheral Line Notes: (Same as: KCL) Infuse over 2 hours. Start Date: 08/04/15 Stop Date: 08/04/15 Status: Completedpotassium chloride 40 mEq, 2 tab, Route: PO, Drug form: ERTAB, ONCE, Dosing Weight 30.909, kg, Start date: 08/07/15 6:28:00, Stop date: 08/07/15 6:28:00 Notes: (Same as: K-Dur 20)"Do Not Crush" With food and full glass of water Start Date: 08/07/15 Stop Date: 08/07/15 Status: Completedpotassium chloride 10 mEq, 50 mL, Route: IVPB, Drug form: INJ, Q1H, Dosing Weight 30.909, kg, Total Dose=40 meq, Start date: 08/04/15 8:30:00, Duration: 4 doses or times, Stop date: 08/04/15 11:30:00, Peripheral Line Special Instructions: Peripheral Line Notes: (Same as: KCL) Infuse over 2 hours. Start Date: 08/04/15 Stop Date: 08/04/15 Status: Completedpotassium chloride 20 mEq/15 mL oral liquid 40 mEq, 30 mL, Route: PO, Drug form: LIQ, ONCE, Dosing Weight 30.909, kg, Start date: 08/08/15 12:44:00, Stop date: 08/08/15 12:44:00 Notes: (Same as: Potassium Chloride) Start Date: 08/08/15 Stop Date: 08/08/15 Status: Completedpotassium chloride 20 mEq/15 mL oral liquid 40 mEq, 30 mL, Route: PO, Drug form: LIQ, ONCE, Dosing Weight 30.909, kg, Start date: 08/09/15 8:49:00, Stop date: 08/09/15 8:49:00 Notes: (Same as: Potassium Chloride) Start Date: 08/09/15 Stop Date: 08/09/15 Status: Completedpotassium chloride 20 mEq/15 mL oral liquid 20 mEq, 15 mL, Route: PO, Drug form: LIQ, ONCE, Dosing Weight 30.909, kg, Start date: 08/07/15 7:34:00, Stop date: 08/07/15 7:34:00 Start Date: 08/07/15 Stop Date: 08/07/15 Status: Discontinuedpotassium chloride 20 mEq/15 mL oral liquid 60 mEq, 45 mL, Route: PO, Drug form: LIQ, ONCE, Dosing Weight 30.909, kg, Start date: 08/04/15 5:32:00, Stop date: 08/04/15 5:32:00 Notes: (Same as: Potassium Chloride) Start Date: 08/04/15 Stop Date: 08/04/15 Status: Completedpotassium phosphate + Sodium Chloride 0.9% IV 250 mL 30 mmol, 10 mL, Route: IVPB, ONCE, Dosing Weight 30.909, kg, Start date: 19:21:00, Stop date: 08/04/15 19:21:00 Notes: (Same as: K Phosphate.) 1 mMol phoshate has 1.47 mEq potassium Infuse over 4 hours Start Date: 08/04/15 Stop Date: 08/04/15 Status: CompletedProbiotic Formula oral capsule 1 cap, PO, Daily, 0 Refill(s) Start Date: 08/02/15 Status: OrderedProtonix 40 mg, 1 tab, Route: PO, Drug form: ECTAB, Before Dinner, Start date: 08/03/15 16:30:00, Duration: 30 day, Stop date: 09/01/15 16:30:00 Notes: Tablet should not be chewed or crushed.(Same as: Protonix) Start Date: 08/03/15 Stop Date: 08/03/15 Status: Discontinuedremove patch 1 patch, Route: TOP, Drug form: ERFILM, Q7D, Start date: 08/10/15 9:00:00, Duration: 30 day, Stop date: 09/07/15 9:00:00 Notes: Remove old patch before application of new patch. Start Date: 08/10/15 Stop Date: 08/14/15 Status: DiscontinuedSaline Flush 0.9% 10 mL, Route: IVP, Drug Form: INJ, Dosing Weight 67.273, kg, PRN, PRN Line Flush , Start date: 08/02/15 11:14:00, Duration: 30 day, Stop date: 09/01/15 11:13:00 Notes: (Same as: BD Posiflush) Start Date: 08/02/15 Stop Date: 08/14/15 Status: DiscontinuedSEROquel 12.5 mg, 0.5 tab, Route: PO, Drug form: TAB, Bedtime, Dosing Weight 68.182, kg, Start date: 08/02/1521:00:00, Duration: 30 day, Stop date: 08/31/15 21:00:00 Notes: (Same as: SEROquel) Start Date: 08/02/15 Stop Date: 08/03/15 Status: DiscontinuedSEROquel 25 mg oral tablet 25 mg=1 tab, PO, Every Other Day Start Date: 08/07/15 Status: OrderedSinemet 25 mg-100 mg oral tablet 1 tab, PO, TID, # 90 tab, 0 Refill(s) Start Date: 08/02/15 Status: OrderedSinemet 25 mg-100 mg oral tablet 1 tab, Route: PO, Drug Form: TAB, Dosing Weight 68.182, kg, TID, Start date: 9:00:00, Duration: 30 day, Stop date: 09/01/15 17:00:00 Notes: Take with milk or food. (Same As: Sinemet) Start Date: 08/03/15 Stop Date: 08/03/15 Status: DiscontinuedSinemet 25 mg-100 mg oral tablet 1 tab, Route: PO, Drug Form: TAB, Dosing Weight 30.909, kg, TID, Start date: 9:00:00, Duration: 30 day, Stop date: 09/05/15 17:00:00 Notes: Take with milk or food. (Same As: Sinemet) Start Date: 08/07/15 Stop Date: 08/14/15 Status: DiscontinuedSodium Chloride 0.9% IV (Sodium Chloride 0.9% (Bolus) IV) 500 mL, 1000 ml/hr, Infuse Over: 30 minutes, Route: IV, 500, Drug form: INJ, ONCE, Priority: STAT, Dosing Weight 67.273 kg, Start date: 08/02/15 11:14:00, Duration: 1 doses or times, Stop date: 08/02/15 11:14:00 Start Date: 08/02/15 Stop Date: 08/02/15 Status: Completedsodium phosphate + Sodium Chloride 0.9% IV 250 mL 30 mmol, 10 mL, Route: IVPB, ONCE, Dosing Weight 30.909, kg, Start date: 8:01:00, Stop date: 08/09/15 8:01:00 Start Date: 08/09/15 Stop Date: 08/09/15 Status: Completedsodium phosphate + Sodium Chloride 0.9% IV 250 mL 15 mmol, 5 mL, Route: IVPB, ONCE, Dosing Weight 30.909, kg, Start date: 7:32:00, Stop date:08/07/15 7:32:00 Start Date: 08/07/15 Stop Date: 08/07/15 Status: Completedspironolactone 25 mg, 1 tab, Route: PO, Drug form: TAB, BID, Dosing Weight 30.909, kg, Start date: 08/03/15 19:44:00, Duration: 30 day, Stop date: 09/02/15 17:00:00 Notes: (Same As: Aldactone) Start Date: 08/03/15 Stop Date: 08/03/15 Status: Discontinuedtamsulosin 0.8 mg, 2 cap, Route: PO, Drug form: CAP, After Breakfast, Dosing Weight 30.909 , kg, Start date: 08/07/15 8:30:00, Duration: 30 day, Stop date: 09/05/15 8:30: 00 Notes: (Same As: Flomax) "Do Not Crush" Start Date: 08/07/15 Stop Date: 08/14/15 Status: DiscontinuedVasotec 0.625 mg, 0.5 mL, Route: IVP, Drug form: INJ, Q6H, Dosing Weight 30.909, kg, Start date: 08/04/15 0:00:00, Duration: 30 day, Stop date: 09/02/15 18:00:00 Notes: (Same as: Vasotec-IV) Start Date: 08/04/15 Stop Date: 08/07/15 Status: DiscontinuedVESIcare 10 mg, Route: PO, Drug form: TAB, Daily, Dosing Weight 68.182, kg, Start date: 08/03/15 9:00:00, Duration: 30 day, Stop date: 09/01/15 9:00:00 Start Date: 08/03/15 Stop Date: 08/02/15 Status: DeletedVitamin B12 1,000 microgram, PO, Daily, 0 Refill(s) Start Date: 08/02/15 Stop Date: 08/07/15 Status: DiscontinuedVitamin C 1,000 mg, PO, Daily, 0 Refill(s) Start Date: 08/02/15 Status: OrderedZofran 4 mg, 2 mL, Route: IVP, Drug form: INJ, ONCE, Dosing Weight 67.273, kg, Priority : STAT, Start date: 08/02/15 13:11:00, Stop date: 08/02/15 13:11:00 Notes: (Same as: Leonid) MEDICATION WASTE Product Size: 4 mgProduct Wasted: 0 mg Start Date: 08/02/15 Stop Date: 08/02/15 Status: Completed Results ELECTROLYTES Most recent to oldest 1 2 3 [Reference Range]: Sodium Lvl [135-145 mEq/L] 139 mEq/L 136 mEq/L 139 mEq/L (08/14/15 4:51 AM) (08/13/15 5:55 AM) (08/12/15 5:49 AM) Potassium Lvl [3.5-5.1 4.3 mEq/L 4.4 mEq/L 4.1 mEq/L mEq/L] (08/14/15 4:51 AM) (08/13/15 5:55 AM) (08/12/15 5:49 AM) Chloride Lvl [95-109 mEq/L] 105 mEq/L 107 mEq/L 106 mEq/L (08/14/15 4:51 AM) (08/13/15 5:55 AM) (08/12/15 5:49 AM) CO2 [24-32 mEq/L] 25 mEq/L 20 mEq/L 25 mEq/L (08/14/15 4:51 AM) *LOW* (08/12/15 5:49 AM) (08/13/15 5:55 AM) AGAP [10.0-20.0 mEq/L] 13.3 mEq/L 13.4 mEq/L 12.1 mEq/L (08/14/15 4:51 AM) (08/13/15 5:55 AM) (08/12/15 5:49 AM) CHEM PANEL Most recent to oldest 1 2 3 [Reference Range]: Creatinine Lvl [0.5-1.4 0.9 mg/dL 0.8 mg/dL 0.8 mg/dL mg/dL] (08/14/15 4:51 AM) (08/13/15 5:55 AM) (08/12/15 5:49 AM) eGFR 78 mL/min/1.73m2 1 81 mL/min/1.73m2 2 81 mL/min/1.73m2 3 *NA* *NA* *NA* (08/14/15 4:51 AM) (08/13/15 5:55 AM) (08/12/15 5:49 AM) BUN [7-22 mg/dL] 16 mg/dL 13 mg/dL 11 mg/dL (08/14/15 4:51 AM) (08/13/15 5:55 AM) (08/12/15 5:49 AM) B/C Ratio [6-25] 17 (08/02/15 11:36 AM) Glucose Lvl [70-99 mg/dL] 112 mg/dL 100 mg/dL 113 mg/dL *HI* *HI* *HI* (08/14/15 4:51 AM) (08/13/15 5:55 AM) (08/12/15 5:49 AM) Total Protein [6.4-8.4 6.8 g/dL g/dL] (08/02/15 11:36 AM) Albumin Lvl [3.5-5.0 g/dL] 3.5 g/dL (08/02/15 11:36 AM) Globulin [2.0-4.0 g/dL] 3.3 g/dL (08/02/15 11:36 AM) A/G Ratio [0.7-1.6] 1.1 (08/02/15 11:36 AM) Calcium Lvl [8.5-10.5 8.9 mg/dL 8.2 mg/dL 8.6 mg/dL mg/dL] (08/14/15 4:51 AM) *LOW* (08/12/15 5:49 AM) (08/13/15 5:55 AM) Phosphorus [2.5-4.5 mg/dL] 3.6 mg/dL 3.0 mg/dL 3.3 mg/dL (08/14/15 4:51 AM) (08/13/15 5:55 AM) (08/12/15 5:49 AM) Magnesium Lvl [1.8-2.4 2.2 mg/dL 2.0 mg/dL 1.9 mg/dL mg/dL] (08/14/15 4:51 AM) (08/13/15 5:55 AM) (08/12/15 5:49 AM) ALT [0-65 unit/L] 14 unit/L (08/02/15 11:36 AM) AST [0-37 unit/L] 22 unit/L (08/02/15 11:36 AM) Alk Phos [39-136 unit/L] 91 unit/L (08/02/15 11:36 AM) Bili Total [0.2-1.3 mg/dL] 0.9 mg/dL (08/02/15 11:36 AM) Lipase Lvl [73-393 unit/L] 42 unit/L *LOW* (08/02/15 11:36 AM) Lactic Acid Lvl [0.5-2.2 1.1 mMol/L 1.1 mMol/L mMol/L] (08/06/15 11:43 AM) (08/03/15 1:43 AM) Lactic Acid WB [0.5-2.2 3.0 mmol/L mmol/L] *HI* (08/02/15 11:36 AM) 1Result Comment: The eGFR is calculated using [...] eGFR should be multiplied by the estimated BMI.CARDIAC ENZYMES Most recent to oldest [Reference Range]: 1 2 3 Troponin-I [0.00-0.40 ng/mL] 0.10 ng/mL (08/02/15 11:36 AM) ANEMIA STUDY Most recent to oldest [Reference Range]: 1 2 3 Vitamin B12 Lvl [254-1320 pg/mL] 1089 pg/mL (08/13/15 5:56 AM) TOXICOLOGY Most recent to oldest [Reference Range]: 1 2 3 Phenytoin Free [1.00-2.00 ug/ml] 0.24 ug/ml *LOW* (08/07/15 4:00 AM) URINE AND STOOL Most recent to oldest [Reference Range]: 1 2 3 UA Turbidity [Clear] Slight Cloudy (08/02/15 6:38 PM) UA Color [Yellow] Dark Yellow (08/02/15 6:38 PM) UA pH [5.0-8.0] 8.0 (08/02/15 6:38 PM) UA Spec Grav [<=1.030] 1.010 (08/02/15 6:38 PM) UA Glucose [Negative] Negative (08/02/15 6:38 PM) UA Blood [Negative] Negative (08/02/15 6:38 PM) UA Ketones [Negative] Negative *NA* (08/02/15 6:38 PM) UA Protein [Negative] Trace *ABN* (08/02/15 6:38 PM) UA Urobilinogen [0.1-1.0 EU/dL] 0.2 EU/dL (08/02/15 6:38 PM) UA Bili [Negative] Negative *NA* (08/02/15 6:38 PM) UA Leuk Est [Negative] Negative (08/02/15 6:38 PM) UA Nitrite [Negative] Negative (08/02/15 6:38 PM) UA WBC [None Seen /HPF] 0-2 /HPF (08/02/15 6:38 PM) UA RBC [0-2 /HPF] 6-10 /HPF *ABN* (08/02/15 6:38 PM) UA Bacteria [None Seen /HPF] Few /HPF (08/02/15 6:38 PM) UA Sq Epi [Few /LPF] Few /LPF (08/02/15 6:38 PM) UA Hyal Cast [0-2] 0-2 (08/02/15 6:38 PM) UA Amorph Lenka [None Seen /HPF] Few /HPF *ABN* (08/02/15 6:38 PM) HEMATOLOGY Most recent to oldest 1 2 3 [Reference Range]: WBC [3.7-10.4 K/CMM] 6.5 K/CMM 10.6 K/CMM 5.8 K/CMM (08/12/15 5:49 AM) *HI* (08/09/15 6:48 AM) (08/11/15 1:21 PM) RBC [4.70-6.10 M/CMM] 3.42 M/CMM 3.88 M/CMM 3.44 M/CMM *LOW* *LOW* *LOW* (08/12/15 5:49 AM) (08/11/15 1:21 PM) (08/09/15 6:48 AM) Hgb [14.0-18.0 g/dL] 10.9 g/dL 12.7 g/dL 11.2 g/dL *LOW* *LOW* *LOW* (08/12/15 5:49 AM) (08/11/15 1:21 PM) (08/09/15 6:48 AM) Hct [42.0-54.0 %] 33.7 % 37.5 % 32.6 % *LOW* *LOW* *LOW* (08/12/15 5:49 AM) (08/11/15 1:21 PM) (08/09/15 6:48 AM) MCV [80.0-94.0 fL] 98.6 fL 96.6 fL 94.8 fL *HI* *HI* *HI* (08/12/15 5:49 AM) (08/11/15 1:21 PM) (08/09/15 6:48 AM) MCH [27.0-31.0 pg] 32.0 pg 32.6 pg 32.7 pg *HI* *HI* *HI* (08/12/15 5:49 AM) (08/11/15 1:21 PM) (08/09/15 6:48 AM) MCHC [32.0-36.0 g/dL] 32.4 g/dL 33.7 g/dL 34.5 g/dL (08/12/15 5:49 AM) (08/11/15 1:21 PM) (08/09/15 6:48 AM) RDW [11.5-14.5 %] 13.7 % 13.4 % 13.2 % (08/12/15 5:49 AM) (08/11/15 1:21 PM) (08/09/15 6:48 AM) Platelet [133-450 K/CMM] 179 K/CMM 229 K/CMM 157 K/CMM (08/12/15 5:49 AM) (08/11/15 1:21 PM) (08/09/15 6:48 AM) MPV [7.4-10.4 fL] 8.5 fL 9.0 fL 8.7 fL (08/12/15 5:49 AM) (08/11/15 1:21 PM) (08/09/15 6:48 AM) Segs [45.0-75.0 %] 72.1 % 88.8 % 86.7 % (08/12/15 5:49 AM) *HI* *HI* (08/03/15 1:43 AM) (08/02/15 11:36 AM) Lymphocytes [20.0-40.0 %] 16.7 % 6.0 % 7.0 % *LOW* *LOW* *LOW* (08/12/15 5:49 AM) (08/03/15 1:43 AM) (08/02/15 11:36 AM) Monocytes [2.0-12.0 %] 6.0 % 4.7 % 5.9 % (08/12/15 5:49 AM) (08/03/15 1:43 AM) (08/02/15 11:36 AM) Eosinophils [0.0-4.0 %] 4.2 % 0.1 % 0.2 % *HI* (08/03/15 1:43 AM) (08/02/15 11:36 AM) (08/12/15 5:49 AM) Basophils [0.0-1.0 %] 1.0 % 0.4 % 0.2 % (08/12/15 5:49 AM) (08/03/15 1:43 AM) (08/02/15 11:36 AM) Segs-Bands # [1.5-8.1 4.7 K/CMM 6.6 K/CMM 8.6 K/CMM K/CMM] (08/12/15 5:49 AM) (08/03/15 1:43 AM) *HI* (08/02/15 11:36 AM) Lymphocytes # [1.0-5.5 1.1 K/CMM 0.4 K/CMM 0.7 K/CMM K/CMM] (08/12/15 5:49 AM) *LOW* *LOW* (08/03/15 1:43 AM) (08/02/15 11:36 AM) Monocytes # [0.0-0.8 K/CMM] 0.4 K/CMM 0.3 K/CMM 0.6 K/CMM (08/12/15 5:49 AM) (08/03/15 1:43 AM) (08/02/15 11:36 AM) Eosinophils # [0.0-0.5 0.3 K/CMM K/CMM] (08/12/15 5:49 AM) Basophils # [0.0-0.2 K/CMM] 0.1 K/CMM (08/12/15 5:49 AM) PT [12.0-14.7 seconds] 14.5 seconds (08/02/15 11:36 AM) INR [0.85-1.17] 1.10 (08/02/15 11:36 AM) MOLECULAR DIAGNOSTIC Most recent to oldest [Reference Range]: 1 2 3 C difficile DNA [Negative] Negative (08/09/15 6:48 AM) Immunizations No data available for this section Procedures Procedure Date Related Diagnosis Body Site Cholecystectomy 2010 Bilateral repair of inguinal hernia, direct1 Complete repair of rotator cuff2 Complete resection of colon Excision of gallbladder Manipulation of deviated nasal septum 1procedure x 32right shoulder, with small pin inserted Social History Social History Type Response Substance Abuse 1 Exercise Exercise duration: 60. 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 Alcohol use interferes with work or home: No. Drinks more than intended: No. Others hurt by drinking: No. Ready to change: No. Household alcohol concerns: No.4 Smoking Status Former smoker; Exposure to Tobacco Smoke None; Cigarette Smoking Last 365 Days No; Reg Smoking Cessation Counseling No [id number], 2 [id number] Assessment and Plan Extracted from: Title: Hospitalist Progress Note Author: Alex Fofana MD Date: Assessment/Plan 1.Vomiting Resolved 2.Anorexia Improving, enjoys chocolate boost 3.BPH loc w urin obs/LUTS Continue tamsulosin 4.Hypomagnesemia, Hypomagnesemia Repleted 4.Small bowel obstruction Resolved, eating well 5.HTN - Hypertension Continue present regimen. Well controlled 7.Parkinson disease Continue sinemet 8.Stroke Continue secondary stroke prevention 9.Seizure disorder Continue lamotrigine and phenytoin 10.Hypophosphatemia Repleted Orders: Basic Metabolic Panel Magnesium Level Phosphorus Level Prophylaxis Continue heparin for DVT prophylaxis Disposition Discharge home in AM. [facility] Hospitalist is primary. Page [phone] with questions. Extracted from: Title: Infection Control Isolation Alert Author: Jeri Marr Date: 08/04/15 ISOLATION ALERT This patient has a history of infection/colonization with MRSA. Site Date Nares 12/31/10 Isolation Required: CONTACT Before isolation precautions may be discontinued for this hospital visit, the following protocol must be followed and Infection Control should be notified: Patient must be off antibiotics for 72 hours or 7 days if on dialysis and vancomycin. Send one MRSA PCR nares specimen. Please place order for MRSA PCR. Do not order MRSA Culture. If MRSA PCR is negative, isolation may be discontinued. Patient can only be cleared from isolation for this visit. If readmitted, patient must be isolated and screened for MRSA again. Consult Infection Control for suggested regimens for decolonization of p atients with MRSA as well as for any questions. We can be reached at . Extracted from: Title: Hospitalist History and Physical Author: Heriberto Arce MD Date: 08/02/15 Assessment/Plan 1.Nausea and vomiting ct scan initially concerning for SBO. reviewed by surgery and examined benign exam and ct scan negative per them. will monitor overnight. po challenge. 2.Mild HTN continue home meds.monitor bp. per son has spikes of elevated bp 3.BPH dutasteride and flomax 4.MELECIO - Obstructive sleep apnea cpap 5.Stroke asa. bp control 6.Hx SBO po challenged Orders: acetaminophen, 650 mg, 2 tab, Route: PO, Drug form: TAB, Q4H, Dosing Weight 67.273, kg, PRN Pain 1-3/Temp > 100.4 F, Start date: 08/02/15 17:27:00, Duration: 30 day, Stop date: 09/01/15 17:26:00 acetaminophen-hydrocodone, 1 tab, Route: PO, Drug Form: TAB, Dosing Weight 67.273, kg, Q4H, PRN Pain Score 4-6, Start date: 08/02/15 17:27:00, Duration: 30 day, Stop date: 09/01/15 17:26:00 amantadine, 100 mg, 1 cap, Route: PO, Drug form: CAP, Daily, Dosing Weight 68.182, kg, Start date: 08/03/15 9:00:00, Duration: 30 day, Stop date: 09/01/15 9:00:00 aspirin, 325 mg, 1 tab, Route: PO, Drug form: TAB, Daily, Dosing Weight 68.182, kg, Start date: 08/03/15 9:00:00, Duration: 30 day, Stop date: 09/01/15 9:00:00 busPIRone, 10 mg, 1 tab, Route: PO, Drug form: TAB, Daily, Dosing Weight 68.182, kg, Start date: 08/03/15 9:00:00, Duration: 30 day, Stop date: 09/01/15 9:00:00 carbidopa-levodopa, 1 tab, Route: PO, Drug Form: TAB, Dosing Weight 68.182, kg, TID, Start date: 08/03/15 9:00:00, Duration: 30 day, Stop date: 09/01/15 17: 00:00 cloNIDine, 1 patch, Route: TOP, Drug Form: ERFILM, Dosing Weight 68.182, kg, Q7D, Start date: 08/02/15 21:00:00, Duration: 30 day, Stop date: 08/30/15 21:00: 00 docusate, 100 mg, 1 cap, Route: PO, Drug form: CAP, BID, Dosing Weight 67.273 , kg, PRN Constipation, Start date: 08/02/15 17:27:00, Duration: 30 day, Stop date: 09/01/15 17:26:00 dutasteride, 0.5 mg, 1 cap, Route: PO, Drug form: CAP, Daily, Dosing Weight 68.182, kg, Start date: 08/03/15 9:00:00, Duration: 30 day, Stop date: 09/01/15 9:00:00 gabapentin, 300 mg, 1 cap, Route: PO, Drug form: CAP, Bedtime, Dosing Weight 68.182, kg, Start date: 08/02/15 21:00:00, Duration: 30 day, Stop date: 21:00:00 hydrALAZINE, 50 mg, 1 tab, Route: PO, Drug form: TAB, Q6H, Dosing Weight 68.182, kg, Start date: 08/03/15 0:00:00, Duration: 30 day, Stop date: 09/01/15 18:00:00 hydrochlorothiazide, 12.5 mg, 1 cap, Route: PO, Drug form: CAP, Daily, Dosing Weight 68.182, kg, Start date: 08/03/15 9:00:00, Duration: 30 day, Stop date: 09/01/15 9:00:00 lamoTRIgine, 100 mg, 1 tab, Route: PO, Drug form: TAB, BID, Dosing Weight 68.182, kg, Start date: 08/03/15 9:00:00, Duration: 30 day, Stop date: 09/01/15 17:00:00 melatonin, 3 mg, 1 tab, Route: PO, Drug form: TAB, Bedtime, Dosing Weight 68.182, kg, PRN as needed for insomnia, Start date: 08/02/15 20:20:00, Duration : 30 day, Stop date: 09/01/15 20:19:00 mirtazapine, 7.5 mg, 0.5 tab, Route: PO, Drug form: TAB, Bedtime, Dosing Weight 68.182, kg, Start date: 08/02/15 21:00:00, Duration: 30 day, Stop date: 08/31/15 21:00:00 nebivolol, 5 mg, 1 tab, Route: PO, Drug form: TAB, Daily, Dosing Weight 68.182, kg, Start date: 08/03/15 9:00:00, Duration: 30 day, Stop date: 09/01/15 9:00:00 NIFEdipine, 90 mg, 1 tab, Route: PO, Drug form: ERTAB, Daily, Dosing Weight 68.182, kg, Start date: 08/03/15 9:00:00, Duration: 30 day, Stop date: 09/01/15 9:00:00 olmesartan, 20 mg, 1 tab, Route: PO, Drug form: TAB, Daily, Dosing Weight 68.182, kg, Start date: 08/03/15 9:00:00, Duration: 30 day, Stop date: 09/01/15 9:00:00 ondansetron, 4 mg, 2 mL, Route: IVP, Drug form: INJ, Q6H, Dosing Weight 67.273, kg, PRN Nausea & Vomiting, Start date: 08/02/15 17:27:00, Duration: 30 day, Stop date: 09/01/15 17:26:00 pantoprazole, 40 mg, 1 tab, Route: PO, Drug form: ECTAB, Before Dinner, Start date: 08/03/15 16:30:00, Duration: 30 day, Stop date: 09/01/15 16:30:00 phenytoin, 100 mg, 1 cap, Route: PO, Drug form: ERCAP, QID, Dosing Weight 68.182, kg, Start date: 08/02/15 21:00:00, Duration: 30 day, Stop date: 17:00:00 QUEtiapine, 12.5 mg, 0.5 tab, Route: PO, Drug form: TAB, Bedtime, Dosing Weight 68.182, kg, Start date: 08/02/15 21:00:00, Duration: 30 day, Stop date: 08/31/15 21:00:00 Sodium Chloride 0.9% IV 1,000 mL, 1,000 mL, Rate: 100 ml/hr, Infuse over: 10 hr, Route: IV, Dosing Weight 67.273 kg, Total Volume: 1,000, Start date: 17:28:00, Duration: 30 day, Stop date: 09/01/15 17:27:00 tamsulosin, 0.4 mg, 1 cap, Route: PO, Drug form: CAP, Bedtime, Dosing Weight 68.182, kg, Start date: 08/02/15 21:00:00, Duration: 30 day, Stop date: 21:00:00 tolterodine, 4 mg, 1 cap, Route: PO, Drug form: CAP, Daily, Start date: 08/03 9:00:00, Duration: 30 day, Stop date: 09/01/15 9:00:00 Ambulation Ambulation Basic Metabolic Panel CDM Admission Acute Care Post ED Complete Blood Count w/ Diff and Platelet Diet Heart Healthy Patient Education AC4 Patient Education AC4 Vital Signs Prophylaxis scds Disposition
--- OUTSIDE RECORDS SUMMARY | 2018-05-12 04:43 | XMS REPORT | Summary of Care ---
:1930 Author Encounter FORD Vasquez(ABI) [id number] Date(s): 11/27/14 - 11/27/[address] Discharge Disposition: Home Physician Attending: Angel Rojas MD Physician_Referring: Angel Rojas MD Reason for Visit FOLLOW UP Vital Signs Most recent to oldest [Reference Range]: 1 Systolic Blood Pressure [90-140 mmHg] 171 mmHg *HI* (11/27/14 1:18 PM) Diastolic Blood Pressure [60-90 mmHg] 71 mmHg (11/27/14 1:18 PM) Peripheral Pulse Rate [60-100 bpm] 55 bpm *LOW* (11/27/14 1:18 PM) Weight 67.273 kg (11/27/14 1:18 PM) Problem List Condition Effective Dates Status [...] Substance Reaction Severity Status NKDA Active Medications ondansetron 4 mg oral tablet, disintegrating 4 mg=1 tab, PO, TID, TID before meals, # 60 tab, 1 Refill(s), Pharmacy: [facility] [id number] Special Instructions: TID before meals Start Date: 11/27/14 Status: Ordered Medications Administered During Your Visit [...] Days No, Reg Smoking Cessation Counseling No [id number], 2 [id number]
[2018-05-12] MEDS ORDERED: FUROSEMIDE 40 MG/4 ML VIAL ONE (04:44)
[2018-05-12] MEDS ORDERED: METOPROLOL TARTRATE 5 MG/5 ML INJ IV ONE (04:44)
--- OUTSIDE RECORDS SUMMARY | 2018-05-12 04:44 | XMS REPORT | Summary of Care ---
:1930 Author Organization [facility] Address [address] [place] [id number]- Encounter HQ Pedro(ABI) [id number] Date(s): 08/19/15 - 08/22/[address] Professional Services provided by [facility] [place] [address]- Discharge Disposition: Home Attending Physician: Dipak Acuña MD Admitting Physician: Dipak Acuña MD Vital Signs Most recent to oldest [Reference Range]: 1 2 3 Height 170.18 cm (08/19/15 11:07 PM) Most recent to oldest 1 2 3 [Reference Range]: Temperature Oral [96.4-99.1 97.4 DegF 97.8 DegF 98.3 DegF DegF] (08/22/15 11:34 AM) (08/22/15 7:30 AM) (08/22/15 4:49 AM) Most recent to oldest 1 2 3 [Reference Range]: Blood Pressure [90-140/60-90 142/65 mmHg 145/70 mmHg 131/60 mmHg mmHg] *HI* *HI* (08/22/15 4:49 AM) (08/22/15 11:34 AM) (08/22/15 7:30 AM) Most recent to oldest 1 2 3 [Reference Range]: Respiratory Rate [14-20 BRMIN] 20 BRMIN 20 BRMIN 20 BRMIN (08/22/15 11:34 AM) (08/22/15 7:30 AM) (08/22/15 4:49 AM) Most recent to oldest 1 2 3 [Reference Range]: Peripheral Pulse Rate [60-100 53 bpm 58 bpm 55 bpm bpm] *LOW* *LOW* *LOW* (08/22/15 11:34 AM) (08/22/15 7:30 AM) (08/22/15 4:49 AM) Most recent to oldest [Reference Range]: 1 2 3 Weight 65.727 kg (08/19/15 11:07 PM) Most recent to oldest [Reference Range]: 1 2 3 Body Mass Index 22.69 m2 (08/19/15 11:07 PM) Problem List Condition Effective Dates Status [...] PO, Drug form: TAB, Q4H, Dosing Weight 65.909, kg, PRN Pain 1-3/Temp > 100.4 F, Start date: 08/19/15 21:19:00, Duration: 30 day, Stop date: 09/18/15 21:18:00 Notes: Do not exceed 4 gm/day. (Same as: Tylenol) Start Date: 08/19/15 Stop Date: 08/22/15 Status: Discontinuedacetaminophen-hydrocodone 325 mg-5 mg oral tablet 1 tab, Route: PO, Drug Form: TAB, Dosing Weight 65.909, kg, Q4H, PRN Pain Score 4-6, Start date: 08/19/15 21:19:00, Duration: 30 day, Stop date: 09/18/15 21:18: 00 Notes: (Same as: [place] 325/5) Do not exceed 4gm/day of acetaminophen. Start Date: 08/19/15 Stop Date: 08/22/15 Status: Discontinuedaspirin 325 mg tablet 325 mg, 1 tab, Route: PO, Drug form: TAB, Daily, Dosing Weight 65.909, kg, Start date: 08/20/15 9:00:00, Duration: 30 day, Stop date: 09/18/15 9:00:00 Notes: Take with food. Start Date: 08/20/15 Stop Date: 08/22/15 Status: DiscontinuedBuSpar 10 mg, 2 tab, Route: PO, Drug form: TAB, Daily, Dosing Weight 65.909, kg, Start date: 08/20/15 9:00:00, Duration: 30 day, Stop date: 09/18/15 9:00:00 Notes: (Same As: BuSpar) Start Date: 08/20/15 Stop Date: 08/22/15 Status: DiscontinuedBystolic 5 mg, 1 tab, Route: PO, Drug form: TAB, Daily, Dosing Weight 65.909, kg, Start date: 08/20/15 9:00:00, Duration: 30 day, Stop date: 09/18/15 9:00:00 Notes: (same as: Bystolic) Start Date: 08/20/15 Stop Date: 08/22/15 Status: Discontinuedcalcipotriene topical 0.005% cream 1 appl, Route: TOP, BID, Drug form: CRM, Start date: 08/20/15 9:00:00, Duration : 30 day, Stop date: 09/18/15 17:00:00 Notes: (Same As: Dovonex) Start Date: 08/20/15 Stop Date: 08/22/15 Status: DiscontinuedCalcitrene 0.005% topical ointment 1 appl, Route: TOP, Drug Form: OINT, Dosing Weight 65.727, kg, QID, Start date: 08/21/15 9:00:00, Duration: 30 day, Stop date: 09/19/15 21:00:00 Notes: (Same As: Dovonex) Start Date: 08/21/15 Stop Date: 08/21/15 Status: DeletedCipro 200 mg, 100 mL, Route: IVPB, Drug form: INJ, [id number], Dosing Weight 65.909, kg, Start date: 08/19/1523:00:00, Stop date: 09/18/15 11:00:00 Start Date: 08/19/15 Stop Date: 08/21/15 Status: DiscontinuedCipro 500 mg oral tablet 500 mg=1 tab, PO, Q12H, end date 08/28, X 7 day, # 14 tab, 0 Refill(s) Special Instructions: end date 08/28 Start Date: 08/22/15 Stop Date: 08/29/15 Status: Orderedciprofloxacin 500 mg, 1 tab, Route: PO, Drug form: TAB, [id number], Dosing Weight 65.727, kg, Start date: 08/21/15 7:00:00, Duration: 30 day, Stop date: 09/19/15 19:00:00 Notes: May interfere w/enteral feedings - Take 1 hr before or 2 hrs after antacids, dairy pdt & minerals. On empty stomach. Start Date: 08/21/15 Stop Date: 08/22/15 Status: DiscontinuedcloNIDine 0.3 mg/24 hr transdermal film, extended release 1 patch, Route: TOP, Drug Form: ERFILM, Dosing Weight 65.909, kg, Q7D, Start date: 08/19/15 23:51:00, Duration: 30 day, Stop date: 09/09/15 21:00:00 Notes: Patch delivers 0.3 mg/24 hours; [id number]. Start Date: 08/19/15 Stop Date: 08/22/15 Status: Discontinuedfinasteride 5 mg, 1 tab, Route: PO, Drug form: TAB, Daily, Dosing Weight 65.909, kg, Start date: 08/20/15 9:00:00, Duration: 30 day, Stop date: 09/18/15 9:00:00 Notes: (Same as: Proscar) "Do Not Crush"Women of childbearing age should not touch or handle broken tablets Start Date: 08/20/15 Stop Date: 08/22/15 Status: DiscontinuedFlomax 0.4 mg, 1 cap, Route: PO, Drug form: CAP, Bedtime, Dosing Weight 65.909, kg, Start date: 08/20/15 21:00:00, Duration: 30 day, Stop date: 09/18/15 21:00:00 Notes: (Same As: Flomax) "Do Not Crush" Start Date: 08/20/15 Stop Date: 08/22/15 Status: Discontinuedheparin 5,000 unit, 1 mL, Route: SUB-Q, Drug form: INJ, Q8H, Dosing Weight 65.727, kg, Start date: 08/20/15 8:00:00, Duration: 30 day, Stop date: 09/19/15 0:00:00 Notes: porcine heparin Start Date: 08/20/15 Stop Date: 08/22/15 Status: DiscontinuedhydrALAZINE 10 mg, 0.5 mL, Route: IVP, Drug form: INJ, Q6H, Dosing Weight 65.727, kg, PRN Other -See Comment, Start date: 08/21/15 7:03:00, Duration: 30 day, Stop date: 09/20/15 7:02:00, SBP > 180 or DBP > 110 Notes: (Same as: Apresoline)Push over 5 minutes Start Date: 08/21/15 Stop Date: 08/22/15 Status: DiscontinuedhydrALAZINE 100 mg, 2 tab, Route: PO, Drug form: TAB, Q8H, Dosing Weight 65.909, kg, Start date: 08/21/15 16:00:00, Duration: 30 day, Stop date: 09/20/15 8:00:00 Notes: (Same as: Apresoline) May interfere w/enteral feedings Take With Food Start Date: 08/21/15 Stop Date: 08/22/15 Status: DiscontinuedhydrALAZINE 50 mg, 1 tab, Route: PO, Drug form: TAB, Q6H, Dosing Weight 65.909, kg, Start date: 08/20/15 0:00:00, Duration: 30 day, Stop date: 09/18/15 18:00:00 Notes: (Same as: Apresoline) May interfere w/enteral feedings Take With Food Start Date: 08/20/15 Stop Date: 08/21/15 Status: DiscontinuedhydrALAZINE 50 mg oral tablet 100 mg=2 tab, PO, Q8H, # 180 tab, 0 Refill(s) Start Date: 08/22/15 Stop Date: 09/21/15 Status: Orderedhydrochlorothiazide 12.5 mg, 1 cap, Route: PO, Drug form: CAP, Daily, Dosing Weight 65.909, kg, Start date: 08/20/15 9:00:00, Duration: 30 day, Stop date: 09/18/15 9:00:00 Notes: (Same as: Microzide) With food. Start Date: 08/20/15 Stop Date: 08/22/15 Status: Discontinuedinfluenza virus vaccine, inactivated 0.5 mL, Route: IM, Drug Form: SUSP, Daily, Start date: 08/21/15 9:00:00, Duration: 1 doses or times,Stop date: 08/21/15 9:00:00 Notes: (Same as: Fluzone Quadrivalent)For 3 years of age and older (0.5 mL IM) Shake well before use Start Date: 08/21/15 Stop Date: 08/21/15 Status: CompletedLaMICtal 100 mg, 1 tab, Route: PO, Drug form: TAB, BID, Dosing Weight 65.909, kg, Start date: 08/20/15 9:00:00, Duration: 30 day, Stop date: 09/18/15 17:00:00 Notes: (Same as:LaMICtal) Start Date: 08/20/15 Stop Date: 08/22/15 Status: DiscontinuedMiraLax 17 gm, 1 pkt, Route: PO, Drug form: PWDR, BID, Dosing Weight 65.727, kg, Start date: 08/21/15 9:00:00, Duration: 30 day, Stop date: 09/19/15 17:00:00 Notes: Dissolve in 8 oz of water or juice.(Same as: Miralax) Start Date: 08/21/15 Stop Date: 08/22/15 Status: Discontinuedmirtazapine 7.5 mg, 0.5 tab, Route: PO, Drug form: TAB, Bedtime, Dosing Weight 65.909, kg, Start date: 08/20/15 21:00:00, Duration: 30 day, Stop date: 09/18/15 21:00:00 Notes: (Same as:Remeron) Start Date: 08/20/15 Stop Date: 08/22/15 Status: Discontinuedmorphine Sulfate 1 mg, 0.5 mL, Route: IVP, Drug form: INJ, Q4H, Dosing Weight 65.909, kg, PRN Pain Score 7-10, Start date: 08/19/15 21:19:00, Duration: 30 day, Stop date: 21:18:00 Notes: (Same as:MORPhine Sulfate) Start Date: 08/19/15 Stop Date: 08/22/15 Status: DiscontinuedNeurontin 300 mg oral capsule 300 mg=1 cap, PO, Bedtime, 0 Refill(s) Start Date: 08/22/15 Status: OrderedNeurontin 300 mg oral capsule 300 mg, 1 cap, Route: PO, Drug form: CAP, Bedtime, Dosing Weight 65.909, kg, Start date: 08/20/15 21:00:00, Duration: 30 day, Stop date: 09/18/15 21:00:00 Notes: (Same as: Neurontin) Start Date: 08/20/15 Stop Date: 08/22/15 Status: DiscontinuedNIFEdipine 90 mg oral tablet, extended release 90 mg, 1 tab, Route: PO, Drug form: ERTAB, Lunch, Dosing Weight 65.909, kg, Start date: 08/20/15 12:00:00, Duration: 30 day, Stop date: 09/18/15 12:00:00 Notes: (Same as:Adalat CC, Procardia XL) Give on empty stomach. Take 1 hour before or 2 hours aftermeal; "Avoid grapefruit and grapefruit juice". Do not crush Start Date: 08/20/15 Stop Date: 08/22/15 Status: Discontinuedpantoprazole 40 mg, 1 tab, Route: PO, Drug form: ECTAB, Before Breakfast, Dosing Weight 65.727, kg, Start date: 08/22/15 7:30:00, Duration: 30 day, Stop date: 09/20/15 7:30:00 Notes: Tablet should not be chewed or crushed.(Same as: Protonix) Start Date: 08/22/15 Stop Date: 08/22/15 Status: Discontinuedpantoprazole 40 mg oral enteric coated tablet 40 mg=1 tab, PO, Before Breakfast, # 30 tab, 0 Refill(s) Start Date: 08/22/15 Stop Date: 09/21/15 Status: Orderedphenytoin 400 mg, 4 cap, Route: PO, Drug form: ERCAP, Bedtime, Dosing Weight 65.909, kg, Start date: 08/20/15 21:00:00, Duration: 30 day, Stop date: 09/18/15 21:00:00 Notes: (Same as: Dilantin) Do not open, crush, or chew. Start Date: 08/20/15 Stop Date: 08/22/15 Status: Discontinuedpolyethylene glycol 3350 oral powder for reconstitution 17 gm, PO, Daily, give 1-2 times daily for one soft bowel mvmt per day. Hold if diarrhea. dissolvein water or juice, X 7 day, # 255 gm, 0 Refill(s) Special Instructions: give 1-2 times daily for one soft bowel mvmt per day. Hold if diarrhea. dissolve in water or juice Start Date: 08/22/15 Stop Date: 08/29/15 Status: Orderedpotassium chloride 40 mEq, 2 tab, Route: PO, Drug form: ERTAB, ONCE, Dosing Weight 65.727, kg, Start date: 08/21/15 6:56:00, Stop date: 08/21/15 6:56:00 Notes: (Same as: K-Dur 20)"Do Not Crush" With food and full glass of water Start Date: 08/21/15 Stop Date: 08/21/15 Status: Completedremove patch 1 patch, Route: TOP, Drug form: ERFILM, QWed, Start date: 08/20/15 21:00:00, Duration: 30 day, Stop date: 09/17/15 21:00:00 Notes: Remove old patch before application of new patch. Start Date: 08/20/15 Stop Date: 08/22/15 Status: DiscontinuedSaline Flush 0.9% 10 ml, Route: IVP, Drug Form: INJ, Dosing Weight 65.909, kg, PRN, PRN Line Flush , Start date: 08/19/15 21:19:00, Duration: 30 day, Stop date: 09/18/15 21:18:00 Notes: (Same as: BD Posiflush) Start Date: 08/19/15 Stop Date: 08/22/15 Status: DiscontinuedSEROquel 25 mg, 1 tab, Route: PO, Drug form: TAB, Every Other Day, Dosing Weight 65.909, kg, Start date: 08/20/15 9:00:00, Duration: 30 day, Stop date: 09/17/15 9:00:00 Notes: (Same as: SEROquel) Start Date: 08/20/15 Stop Date: 08/22/15 Status: DiscontinuedSinemet 25 mg-100 mg oral tablet 1 tab, Route: PO, Drug Form: TAB, Dosing Weight 65.909, kg, TID, Start date: 9:00:00, Duration: 30 day, Stop date: 09/18/15 17:00:00 Notes: Take with milk or food. (Same As: Sinemet) Start Date: 08/20/15 Stop Date: 08/22/15 Status: DiscontinuedSodium Chloride 0.9% IV 1,000 mL 1,000 mL, Rate: 75 ml/hr, Infuse over: 13.3 hr, Route: IV, Dosing Weight 65.909 kg, Total Volume: 1,000, Start date: 08/19/15 21:19:00, Duration: 30 day, Stop date: 09/18/15 21:18:00 Start Date: 08/19/15 Stop Date: 08/21/15 Status: DiscontinuedZofran 4 mg, 2 mL, Route: IV, Drug form: INJ, Q6H, Dosing Weight 65.727, kg, PRN Nausea , Start date: 08/21/15 6:58:00, Duration: 30 day, Stop date: 09/20/15 6:57:00 Notes: (Same as: Zofran) MEDICATION WASTE Product Size: 4 mgProduct Wasted: ___ mg Start Date: 08/21/15 Stop Date: 08/22/15 Status: DiscontinuedZofran 4 mg oral tablet 4 mg=1 tab, PO, Q6H, PRN as needed for nausea/vomiting, take 15-30 mins before meals especially lunch for nausea, X 7 day, # 28 tab, 0 Refill(s) Special Instructions: take 15-30 mins before meals especially lunch for nausea Start Date: 08/22/15 Stop Date: 08/29/15 Status: Ordered Results ELECTROLYTES Most recent to oldest [Reference Range]: 1 2 Sodium Lvl [135-145 mEq/L] 140 mEq/L 142 mEq/L (08/21/15 4:38 AM) (08/20/15 4:48 AM) Potassium Lvl [3.5-5.1 mEq/L] 3.4 mEq/L 3.5 mEq/L *LOW* (08/20/15 4:48 AM) (08/21/15 4:38 AM) Chloride Lvl [95-109 mEq/L] 107 mEq/L 109 mEq/L (08/21/15 4:38 AM) (08/20/15 4:48 AM) CO2 [24-32 mEq/L] 25 mEq/L 27 mEq/L (08/21/15 4:38 AM) (08/20/15 4:48 AM) AGAP [10.0-20.0 mEq/L] 11.4 mEq/L 9.5 mEq/L (08/21/15 4:38 AM) *LOW* (08/20/15 4:48 AM) CHEM PANEL Most recent to oldest [Reference Range]: 1 2 Creatinine Lvl [0.5-1.4 mg/dL] 0.9 mg/dL 1.0 mg/dL (08/21/15 4:38 AM) (08/20/15 4:48 AM) eGFR 77 mL/min/1.73m2 1 68 mL/min/1.73m2 2 *NA* *NA* (08/21/15 4:38 AM) (08/20/15 4:48 AM) BUN [7-22 mg/dL] 9 mg/dL 15 mg/dL (08/21/15 4:38 AM) (08/20/15 4:48 AM) B/C Ratio [6-25] 15 (08/20/15 4:48 AM) Glucose Lvl [70-99 mg/dL] 95 mg/dL 95 mg/dL (08/21/15 4:38 AM) (08/20/15 4:48 AM) Total Protein [6.4-8.4 g/dL] 5.4 g/dL *LOW* (08/20/15 4:48 AM) Albumin Lvl [3.5-5.0 g/dL] 2.9 g/dL *LOW* (08/20/15 4:48 AM) Globulin [2.0-4.0 g/dL] 2.5 g/dL (08/20/15 4:48 AM) A/G Ratio [0.7-1.6] 1.2 (08/20/15 4:48 AM) Calcium Lvl [8.5-10.5 mg/dL] 8.3 mg/dL 8.3 mg/dL *LOW* *LOW* (08/21/15 4:38 AM) (08/20/15 4:48 AM) Phosphorus [2.5-4.5 mg/dL] 3.1 mg/dL (08/20/15 4:48 AM) Magnesium Lvl [1.8-2.4 mg/dL] 1.8 mg/dL (08/20/15 4:48 AM) ALT [0-65 unit/L] 18 unit/L (08/20/15 4:48 AM) AST [0-37 unit/L] 15 unit/L (08/20/15 4:48 AM) Alk Phos [39-136 unit/L] 89 unit/L (08/20/15 4:48 AM) Bili Total [0.2-1.3 mg/dL] 0.2 mg/dL (08/20/15 4:48 AM) 1Result Comment: The eGFR is calculated [...] recent to oldest [Reference Range]: 1 2 UA Turbidity [Clear] Clear (08/20/15 2:54 AM) UA Color [Yellow] Yellow *NA* (08/20/15 2:54 AM) UA pH [5.0-8.0] 7.5 (08/20/15 2:54 AM) UA Spec Grav [<=1.030] 1.006 (08/20/15 2:54 AM) UA Glucose [Negative mg/dL] Negative mg/dL *NA* (08/20/15 2:54 AM) UA Blood [Negative] Negative (08/20/15 2:54 AM) UA Ketones [Negative mg/dL] Negative mg/dL *NA* (08/20/15 2:54 AM) UA Protein [Negative mg/dL] Negative mg/dL (08/20/15 2:54 AM) UA Urobilinogen [0.1-1.0 mg/dL] <=1.0 mg/dL *NA* (08/20/15 2:54 AM) UA Bili [Negative] Negative *NA* (08/20/15 2:54 AM) UA Leuk Est [Negative] Moderate *ABN* (08/20/15 2:54 AM) UA Nitrite [Negative] Negative (08/20/15 2:54 AM) UA WBC [0-5 /HPF] 20 /HPF *HI* (08/20/15 2:54 AM) UA RBC [0-2 /HPF] 5 /HPF *HI* (08/20/15 2:54 AM) UA Bacteria [None Seen /HPF] Occasional /HPF *NA* (08/20/15 2:54 AM) UA Sq Epi None Seen *NA* (08/20/15 2:54 AM) UA Amorph Lenka [None Seen /HPF] Occasional /HPF *NA* (08/20/15 2:54 AM) UA Mucus [None Seen /LPF] Few /LPF *NA* (08/20/15 2:54 AM) HEMATOLOGY Most recent to oldest [Reference Range]: 1 2 WBC [3.7-10.4 K/CMM] 4.4 K/CMM 5.3 K/CMM (08/21/15 4:38 AM) (08/20/15 4:48 AM) RBC [4.70-6.10 M/CMM] 3.43 M/CMM 3.33 M/CMM *LOW* *LOW* (08/21/15 4:38 AM) (08/20/15 4:48 AM) Hgb [14.0-18.0 g/dL] 11.2 g/dL 10.9 g/dL *LOW* *LOW* (08/21/15 4:38 AM) (08/20/15 4:48 AM) Hct [42.0-54.0 %] 32.9 % 32.1 % *LOW* *LOW* (08/21/15 4:38 AM) (08/20/15 4:48 AM) MCV [80.0-94.0 fL] 95.9 fL 96.4 fL *HI* *HI* (08/21/15 4:38 AM) (08/20/15 4:48 AM) MCH [27.0-31.0 pg] 32.7 pg 32.6 pg *HI* *HI* (08/21/15 4:38 AM) (08/20/15 4:48 AM) MCHC [32.0-36.0 g/dL] 34.0 g/dL 33.8 g/dL (08/21/15 4:38 AM) (08/20/15 4:48 AM) RDW [11.5-14.5 %] 13.7 % 13.5 % (08/21/15 4:38 AM) (08/20/15 4:48 AM) Platelet [133-450 K/CMM] 188 K/CMM 206 K/CMM (08/21/15 4:38 AM) (08/20/15 4:48 AM) MPV [7.4-10.4 fL] 8.2 fL 8.4 fL (08/21/15 4:38 AM) (08/20/15 4:48 AM) Segs [45.0-75.0 %] 70.0 % (08/20/15 4:48 AM) Lymphocytes [20.0-40.0 %] 16.4 % *LOW* (08/20/15 4:48 AM) Monocytes [2.0-12.0 %] 7.4 % (08/20/15 4:48 AM) Eosinophils [0.0-4.0 %] 5.4 % *HI* (08/20/15 4:48 AM) Basophils [0.0-1.0 %] 0.8 % (08/20/15 4:48 AM) Segs-Bands # [1.5-8.1 K/CMM] 3.7 K/CMM (08/20/15 4:48 AM) Lymphocytes # [1.0-5.5 K/CMM] 0.9 K/CMM *LOW* (08/20/15 4:48 AM) Monocytes # [0.0-0.8 K/CMM] 0.4 K/CMM (08/20/15 4:48 AM) Eosinophils # [0.0-0.5 K/CMM] 0.3 K/CMM (08/20/15 4:48 AM) MOLECULAR DIAGNOSTIC Most recent to oldest [Reference Range]: 1 2 C difficile DNA [Negative] Negative (08/22/15 7:43 AM) Immunizations Vaccine Date Refusal Reason influenza virus vaccine, inactivated 08/21/15 Procedures Procedure Date Related Diagnosis Body Site Cholecystectomy 2010 Bilateral repair of inguinal hernia, direct1 Complete repair of rotator cuff2 Complete resection of colon Excision of gallbladder Manipulation of deviated nasal septum 1procedure x 32right shoulder, with small pin inserted Social History Social History Type Response Substance Abuse 1 Exercise Exercise duration: 60. 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 Alcohol use [...] Days No; Reg Smoking Cessation Counseling No [id number], 2 [id number] Assessment and Plan Extracted from: Title: Infection Control Isolation Alert Author: Justa, Jeri Date: 08/22/15 ISOLATION ALERT This patient has a history of infection/colonization with MRSA. Site Date Nasal swab 12/31/10 Isolation Required: CONTACT Before isolation precautions [...] reached at . Extracted from: Title: Hospitalist Progress Note Author: Wolf Frazier MD Date: 08/21/15 Assessment/Plan 84 y/o M with PMH of CVA followed by neuro-rehab, multiple SBOs, and chronic vomiting w/o sensation of nausea, BPH and UTIs who is here for N/V which have resolved. Now with some mild diarrhea. 1.Vomiting Counseled as above. Consider cyclic vomiting, tends to occur most often w/ lunch. Never has tried scheduling zofran pre-meal. Never has tried to eliminate medications to determine if any causal (nifedipine is uniquely given prior to lunch). Emesis is always after pills and during meal. No preceding nausea. Have trialed PPI briefly in past. May benefit from trial of sotero n though w/ mvmt disoder, this should be deferred to neuro and GI. Importantly, pt is able to maintain nutrition/weight and hydration despite these sxs. Ordered: ondansetron, 4 mg, 2 mL, Route: IV, Drug form: INJ, Q6H, Dosing Weight 65.727 , kg, PRN Nausea, Start date: 08/21/15 6:58:00, Duration: 30 day, Stop date: 6:57:00 pantoprazole, 40 mg, 1 tab, Route: PO, Drug form: ECTAB, Before Breakfast, Dosing Weight 65.727, kg, Start date: 08/22/15 7:30:00, Duration: 30 day, Stop date: 09/20/15 7:30:00 polyethylene glycol 3350, 17 gm, 1 pkt, Route: PO, Drug form: PWDR, BID, Dosing Weight 65.727, kg, Start date: 08/21/15 9:00:00, Duration: 30 day, Stop date: 09/19/15 17:00:00 2.Acute UTI Urine cx NGTD, final tomorrow - continue cipro, total course 10-14 days (end date 08/28) - switch to PO and tolerating 3.History of CVA (cerebrovascular accident) f/u with neuro rehab as outpt 4.Hypertension poorly controlled, goal 120-140s increase hydral to max, this has been discussed in the past may split nifedipine and given 60mg BID next vs. increase patch hydral IV prn holding parameters on nibivolol 5.Acute diarrhea send Cdiff as multiple hospitalizations and abx low likelihood with no pain, WBC IBS in the differential Prophylaxis SQH Disposition home tomorrow am with son and outpt GI follow-up [facility] IM hospitalist team is primary. Please page [phone] with any questions. Extracted from: Title: Hospitalist History and Physical Author: Pedro Cummins MD Date: Assessment/Plan 1.Vomiting Concern is for recurrent SBO, thoghCT scan from 08/17 without evidence for SBO. Will keep patient NPO for now and advance diet as tolerated. Obtain KUB. If symptoms do not improve will get CT in AM 2.Acute UTI continue ciprofloxacin 3.History of CVA (cerebrovascular accident) continue aspirin 4.Hypertension continue clonidine patch, HCTZ, hydralazine, bystolic, nifedipine Prophylaxis SCDs Disposition home pending clinical improvement
--- OUTSIDE RECORDS SUMMARY | 2018-05-12 04:44 | XMS REPORT | Summary of Care ---
:1930 Author Organization [facility] Encounter HQ Pedro(FIN) [id number] Date(s): 07/09/16 - 07/09/16 [facility] [address], [address] [place] [address]- [place] [phone] Discharge Disposition: Home or Self Care Attending Physician: Ana Rosa Cooney MD Vital Signs No data available for this section Problem List Condition Effective Dates Status Health [...] Medications No data available for this section Results No data available for this section Immunizations Given and Recorded Vaccine Date Status Refusal Reason influenza virus vaccine, inactivated 08/21/15 Given Procedures Procedure Date Related Diagnosis Body Site Cholecystectomy 2010 Bilateral repair of inguinal hernia, direct1 Complete repair of rotator cuff2 Complete resection of colon Excision of gallbladder Manipulation of deviated nasal septum 1procedure x 32right shoulder, with small pin inserted Social History Social History Type Response Substance Abuse 1 Exercise Exercise duration: 60. 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 Alcohol use [...] Days No; Reg Smoking Cessation Counseling No [id number], 2 [id number] Assessment and Plan No data available for this section
--- OUTSIDE RECORDS SUMMARY | 2018-05-12 04:44 | XMS REPORT | Summary of Care ---
:1930 Author Organization [facility] Address [address] [place], [place] [id number] Encounter HQ Dona_devora(FIN) [id number] Date(s): 03/02/16 - 03/02/[address] Discharge Disposition: Home Attending Physician: Tiesha Cason MD Referring Physician: Tiesha Cason MD Vital Signs Most recent to oldest [Reference Range]: 1 Height 170.18 cm (03/02/16 9:03 AM) Blood Pressure [90-140/60-90 mmHg] 151/79 mmHg *HI* (03/02/16 9:03 AM) Respiratory Rate [14-20 BRMIN] 20 BRMIN (03/02/16 9:03 AM) Peripheral Pulse Rate [60-100 bpm] 53 bpm *LOW* (03/02/16 9:03 AM) Weight 70.909 kg (03/02/16 9:03 AM) Body Mass Index 24.48 m2 (03/02/16 9:03 AM) Problem List Condition Effective Dates Status [...] Substance Reaction Severity Status NKDA Active Medications Charito =1 tab, PO, Daily, 0 Refill(s) Start Date: 03/02/16 Status: OrderedFlonase 0.05 mg/inh nasal spray 1 spray, NASAL, Daily, 0 Refill(s) Start Date: 03/02/16 Status: Ordered Results No data available for this section Immunizations Vaccine Date Refusal Reason influenza virus [...] 3-4 times/week.2 Employment/School 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 Alcohol use [...] Days No; Reg Smoking Cessation Counseling No [id number], 2 [id number] Assessment and Plan No data available for this section
--- OUTSIDE RECORDS SUMMARY | 2018-05-12 04:45 | XMS REPORT | Summary of Care ---
:1930 Author Organization [facility] Address [address] [place] [id number]- Encounter HQ Dona_devora(FIN) [id number] Date(s): 10/04/16 - 10/08/[address] Professional Services provided by [facility] [place] [address]- Discharge Disposition: Home or Self Care Attending Physician: Fely Herrera MD Admitting Physician: Keyon Blake MD Vital Signs Most recent to oldest 1 2 3 [Reference Range]: Height 170.18 cm (10/04/16 8:04 AM) Temperature Oral 97.7 DegF 97.6 DegF 98.1 DegF [96.4-99.1 DegF] (10/08/16 11:45 AM) (10/08/16 7:10 AM) (10/08/16 4:05 AM) Blood Pressure 134/58 mmHg 161/66 mmHg 157/71 mmHg [90-140/60-90 mmHg] (10/08/16 11:45 AM) *HI* *HI* (10/08/16 7:10 AM) (10/08/16 4:05 AM) Respiratory Rate [14-20 16 BRMIN 16 BRMIN 18 BRMIN BRMIN] (10/08/16 7:10 AM) (10/08/16 4:05 AM) (10/07/16 11:00 PM) Peripheral Pulse Rate 54 bpm 52 bpm 54 bpm [60-100 bpm] *LOW* *LOW* *LOW* (10/08/16 11:45 AM) (10/08/16 7:10 AM) (10/08/16 4:05 AM) Weight 66.636 kg 66.818 kg (10/04/16 2:23 PM) (10/04/16 8:04 AM) Body Mass Index 23.07 m2 (10/04/16 8:04 AM) Problem List Condition Effective Dates Status [...] Reaction Severity Status NKDA Active Medications Charito 60 mg, Route: PO, Daily, Dosing Weight 66.636, kg, Priority: NOW, Start date: 17:44:00 RETAIL SELLING SPECIALIST,Stop date: 11/03/16 17:44:00 RETAIL SELLING SPECIALIST Start Date: 10/04/16 Stop Date: 10/04/16 Status: Deletedaspirin 325 mg tablet 325 mg, 1 tab, Route: PO, Drug form: TAB, Daily, Dosing Weight 66.636, kg, Start date: 10/05/16 9:00:00 RETAIL SELLING SPECIALIST, Duration: 30 day, Stop date: 11/03/16 9:00:00 RETAIL SELLING SPECIALIST Notes: Take with food. Start Date: 10/05/16 Stop Date: 10/08/16 Status: DiscontinuedBenicar 20 mg, 1 tab, Route: PO, Drug form: TAB, Daily, Dosing Weight 66.636, kg, Start date: 10/05/16 9:00:00 RETAIL SELLING SPECIALIST, Duration: 30 day, Stop date: 11/03/16 9:00:00 RETAIL SELLING SPECIALIST Start Date: 10/05/16 Stop Date: 10/08/16 Status: DiscontinuedBuSpar 10 mg, 2 tab, Route: PO, Drug form: TAB, BID, Dosing Weight 66.636, kg, Priority : NOW, Start date: 10/04/16 20:42:00 RETAIL SELLING SPECIALIST, Stop date: 11/03/16 17:00:00 RETAIL SELLING SPECIALIST Notes: (Same As: BuSpar) Start Date: 10/04/16 Stop Date: 10/08/16 Status: DiscontinuedBystolic 5 mg, 1 tab, Route: PO, Drug form: TAB, Daily, Dosing Weight 66.636, kg, Start date: 10/05/16 9:00:00 RETAIL SELLING SPECIALIST, Duration: 30 day, Stop date: 11/03/16 9:00:00 RETAIL SELLING SPECIALIST Notes: (same as: Bystolic) Start Date: 10/05/16 Stop Date: 10/08/16 Status: DiscontinuedCalmoseptine topical ointment 1 appl, Route: TOP, TID, Drug form: OINT, PRN Diaper Rash, Start date: 10/05/16 9:32:00 RETAIL SELLING SPECIALIST, Duration: 30 day, Stop date: 11/04/16 9:31:00 RETAIL SELLING SPECIALIST, Dosing Notes: (Same as: Calmoseptine) Start Date: 10/05/16 Stop Date: 10/08/16 Status: DiscontinuedCentrum Men's 1 tab, Route: PO, Drug Form: TAB, Dosing Weight 66.636, kg, Daily, Start date: 10/05/16 9:00:00 RETAIL SELLING SPECIALIST,Duration: 30 day, Stop date: 11/03/16 9:00:00 RETAIL SELLING SPECIALIST Notes: (Same as:Thera-M, Theragran-M)WASTE: F/P - Black; E - Municipal Trash Bin Give with food. Start Date: 10/05/16 Stop Date: 10/08/16 Status: Discontinuedcetirizine 10 mg, 1 tab, Route: PO, Drug form: TAB, Daily, Dosing Weight 66.636, kg, Start date: 10/04/16 19:00:00 RETAIL SELLING SPECIALIST, Duration: 30 day, Stop date: 11/03/16 9:00:00 RETAIL SELLING SPECIALIST Notes: (Same As: Zyrtec) Start Date: 10/04/16 Stop Date: 10/08/16 Status: DiscontinuedColace 100 mg oral capsule 100 mg, 1 cap, Route: PO, Drug form: CAP, BID, Dosing Weight 66.636, kg, PRN Constipation, Start date: 10/04/16 17:11:00 RETAIL SELLING SPECIALIST, Duration: 30 day, Stop date: 17:10:00 RETAIL SELLING SPECIALIST Notes: (Same as: Colace) (Do Not Crush) Start Date: 10/04/16 Stop Date: 10/08/16 Status: DiscontinuedCulturelle HS 1 cap, Route: PO, Drug Form: CAP, Dosing Weight 66.636, kg, Daily, Start date: 10/05/16 9:00:00 RETAIL SELLING SPECIALIST,Duration: 30 day, Stop date: 11/03/16 9:00:00 RETAIL SELLING SPECIALIST Notes: Same as Culturelle Start Date: 10/05/16 Stop Date: 10/08/16 Status: Discontinuedcyanocobalamin 1,000 microgram, 1 tab, Route: PO, Drug form: TAB, Daily, Dosing Weight 66.636, kg, Start date: 10/05/16 9:00:00 RETAIL SELLING SPECIALIST, Duration: 30 day, Stop date: 11/03/16 9:00 :00 RETAIL SELLING SPECIALIST Notes: (Same As: Vitamin B-12) Start Date: 10/05/16 Stop Date: 10/08/16 Status: DiscontinuedDetrol LA 4 mg, 1 cap, Route: PO, Drug form: CAP, Daily, Start date: 10/05/16 9:00:00 RETAIL SELLING SPECIALIST , Duration: 30 day, Stop date: 11/03/16 9:00:00 RETAIL SELLING SPECIALIST Notes: Do Not Crush. (Same As: Detrol LA) Start Date: 10/05/16 Stop Date: 10/08/16 Status: Discontinueddocusate 100 mg, 10 mL, Route: PO, Drug form: LIQ, BID, Dosing Weight 66.636, kg, Start date: 10/06/16 9:00:00 RETAIL SELLING SPECIALIST, Stop date: 11/04/16 17:00:00 RETAIL SELLING SPECIALIST Notes: (Same as: Colace) Start Date: 10/06/16 Stop Date: 10/08/16 Status: Discontinuedfinasteride 0.5 mg, 0.1 tab, Route: PO, Drug form: TAB, Daily, Dosing Weight 66.636, kg, Start date: 10/05/16 9:00:00 RETAIL SELLING SPECIALIST, Duration: 30 day, Stop date: 11/03/16 9:00:00 RETAIL SELLING SPECIALIST Notes: (Same as: Proscar) "Do Not Crush"Women of childbearing age should not touch or handle broken tablets Start Date: 10/05/16 Stop Date: 10/06/16 Status: DiscontinuedFlomax 0.4 mg, 1 cap, Route: PO, Drug form: CAP, Bedtime, Dosing Weight 66.636, kg, Start date: 10/04/16 21:00:00 RETAIL SELLING SPECIALIST, Duration: 30 day, Stop date: 11/02/16 21:00: 00 RETAIL SELLING SPECIALIST Notes: (Same As: Flomax) "Do Not Crush" Start Date: 10/04/16 Stop Date: 10/08/16 Status: DiscontinuedFlonase 0.05 mg/inh nasal spray 1 spray, Route: NASAL, Drug Form: SPRY, Dosing Weight 66.636, kg, Daily, NOW, Start date: 10/04/16 17:46:00 RETAIL SELLING SPECIALIST, Stop date: 11/03/16 17:46:00 RETAIL SELLING SPECIALIST Notes: (Same as: Flonase) Start Date: 10/04/16 Stop Date: 10/08/16 Status: Discontinuedheparin 5,000 unit, 1 mL, Route: SUB-Q, Drug form: INJ, Q8H, Dosing Weight 66.636, kg, Start date: 10/05/16 0:00:00 RETAIL SELLING SPECIALIST, Duration: 30 day, Stop date: 11/03/16 16:00: 00 RETAIL SELLING SPECIALIST Notes: porcine heparin Start Date: 10/05/16 Stop Date: 10/08/16 Status: DiscontinuedhydrALAZINE 50 mg oral tablet 50 mg=1 tab, PO, QID, # 360 tab, 0 Refill(s) Start Date: 10/04/16 Stop Date: 10/08/16 Status: Discontinuedhydrochlorothiazide 12.5 mg, 1 cap, Route: PO, Drug form: CAP, Daily, Dosing Weight 66.636, kg, Start date: 10/05/16 9:00:00 RETAIL SELLING SPECIALIST, Duration: 30 day, Stop date: 11/03/16 9:00:00 RETAIL SELLING SPECIALIST Notes: (Same as: Microzide) With food. Start Date: 10/05/16 Stop Date: 10/08/16 Status: DiscontinuedLactated Ringers 1,000 mL 1,000 mL, Rate: 75 ml/hr, Infuse over: 13.3 hr, Route: IV, Dosing Weight 66.636 kg, Total Volume: 1,000, Start date: 10/04/16 15:09:00 RETAIL SELLING SPECIALIST, Duration: 30 day, Stop date: 11/03/16 15:08:00 RETAIL SELLING SPECIALIST Start Date: 10/04/16 Stop Date: 10/06/16 Status: DiscontinuedLaMICtal 100 mg, 1 tab, Route: PO, Drug form: TAB, BID, Dosing Weight 66.636, kg, Priority: NOW, Start date: 10/04/16 20:43:00 RETAIL SELLING SPECIALIST, Duration: 30 day, Stop date: 11/03/16 17:00:00 RETAIL SELLING SPECIALIST Notes: (Same as:LaMICtal) Start Date: 10/04/16 Stop Date: 10/08/16 Status: DiscontinuedLevaquin 750 mg oral tablet 750 mg=1 tab, PO, Daily, X 5 day, # 5 tab, 0 Refill(s) Start Date: 10/08/16 Stop Date: 10/13/16 Status: Orderedmelatonin 3 mg, 1 tab, Route: PO, Drug form: TAB, Bedtime, Dosing Weight 66.636, kg, PRN Insomnia, Start date:10/04/16 17:08:00 RETAIL SELLING SPECIALIST, Duration: 30 day, Stop date: 17:07:00 RETAIL SELLING SPECIALIST Notes: (Same as: Melatonin) Start Date: 10/04/16 Stop Date: 10/08/16 Status: Discontinuedmetoclopramide 10 mg oral tablet 10 mg, 1 tab, Route: PO, Drug form: TAB, QID-Before Meals, Dosing Weight 66.636 , kg, Start date: 10/04/16 21:00:00 RETAIL SELLING SPECIALIST, Duration: 30 day, Stop date: 11/03/16 16:30:00 RETAIL SELLING SPECIALIST Notes: (Same as: Reglan) Take 30 min before meals Start Date: 10/04/16 Stop Date: 10/08/16 Status: Discontinuedmetoclopramide 10 mg oral tablet, disintegrating 10 mg=1 tab, PO, QID-Before Meals, 0 Refill(s) Start Date: 10/04/16 Status: OrderedMiraLax 17 gm, 1 pkt, Route: PO, Drug form: PWDR, BID, Dosing Weight 66.636, kg, Start date: 10/06/16 9:00:00 RETAIL SELLING SPECIALIST, Duration: 30 day, Stop date: 11/04/16 17:00:00 RETAIL SELLING SPECIALIST Notes: Dissolve in 8 oz of water or juice.(Same as: Miralax) Start Date: 10/06/16 Stop Date: 10/08/16 Status: DiscontinuedMiraLax 17 gm, 1 pkt, Route: PO, Drug form: PWDR, QPM, Dosing Weight 66.636, kg, Start date: 10/05/16 17:00:00 RETAIL SELLING SPECIALIST, Duration: 30 day, Stop date: 11/03/16 17:00:00 RETAIL SELLING SPECIALIST Notes: Dissolve in 8 oz of water or juice.(Same as: Miralax) Start Date: 10/05/16 Stop Date: 10/06/16 Status: Discontinuedmirtazapine 7.5 mg, 1 tab, Route: PO, Drug form: TAB, Bedtime, Dosing Weight 66.636, kg, Start date: 10/04/16 21:00:00 RETAIL SELLING SPECIALIST, Duration: 30 day, Stop date: 11/02/16 21:00: 00 RETAIL SELLING SPECIALIST Notes: (Same as:Remeron) Start Date: 10/04/16 Stop Date: 10/05/16 Status: Discontinuedmirtazapine 7.5 mg, 1 tab, Route: PO, Drug form: TAB, Bedtime, Dosing Weight 66.636, kg, Start date: 10/06/16 21:00:00 RETAIL SELLING SPECIALIST, Duration: 30 day, Stop date: 11/04/16 21:00: 00 RETAIL SELLING SPECIALIST Notes: (Same as:Remeron) Start Date: 10/06/16 Stop Date: 10/08/16 Status: Discontinuedmolasses 240 mL, Route: LA, Drug Form: SYRP, Dosing Weight 66.636, kg, ONCE, Milk of Molasses Enema, Start date: 10/05/16 13:20:00 RETAIL SELLING SPECIALIST, Duration: 1 doses or times, Stop date: 10/05/16 13:20:00 RETAIL SELLING SPECIALIST Notes: (Same as:Molasses) Start Date: 10/05/16 Stop Date: 10/05/16 Status: CompletedNeurontin 300 mg oral capsule 300 mg, 1 cap, Route: PO, Drug form: CAP, Bedtime, Dosing Weight 66.636, kg, Start date: 10/04/16 21:00:00 RETAIL SELLING SPECIALIST, Duration: 30 day, Stop date: 11/02/16 21:00: 00 RETAIL SELLING SPECIALIST Notes: (Same as: Neurontin) Start Date: 10/04/16 Stop Date: 10/08/16 Status: DiscontinuedNIFEdipine 90 mg oral tablet, extended release 90 mg, 1 tab, Route: PO, Drug form: ERTAB, Lunch, Dosing Weight 66.636, kg, Priority: NOW, Start date: 10/04/16 17:06:00 RETAIL SELLING SPECIALIST, Duration: 30 day, Stop date: 11/03/16 12:00:00 RETAIL SELLING SPECIALIST Notes: (Same as:Adalat CC, Procardia XL) Give on empty stomach. Take 1 hour before or 2 hours aftermeal; "Avoid grapefruit and grapefruit juice". Do not crush Start Date: 10/04/16 Stop Date: 10/08/16 Status: DiscontinuedNS (Bolus) IV 500 mL, 500 ml/hr, Infuse Over: 1 hr, Route: IV, 500, Drug form: INJ, ONCE, Priority: STAT, Dosing Weight 66.818 kg, Start date: 10/04/16 11:07:00 RETAIL SELLING SPECIALIST, Duration: 1 doses or times, Stop date: 10/04/16 11:07:00 RETAIL SELLING SPECIALIST Start Date: 10/04/16 Stop Date: 10/04/16 Status: Completedpantoprazole 40 mg, 1 tab, Route: PO, Drug form: ECTAB, Before Breakfast, Dosing Weight 66.636, kg, Start date: 10/05/16 7:30:00 RETAIL SELLING SPECIALIST, Duration: 30 day, Stop date: 11/03 7:30:00 RETAIL SELLING SPECIALIST Notes: Tablet should not be chewed or crushed.(Same as: Protonix) Start Date: 10/05/16 Stop Date: 10/08/16 Status: Discontinuedphenytoin 400 mg, 4 cap, Route: PO, Drug form: ERCAP, Bedtime, Dosing Weight 66.636, kg, Start date: 10/04/16 21:00:00 RETAIL SELLING SPECIALIST, Duration: 30 day, Stop date: 11/02/16 21:00: 00 RETAIL SELLING SPECIALIST Notes: (Same as: Dilantin) Do not open, crush, or chew. Start Date: 10/04/16 Stop Date: 10/08/16 Status: DiscontinuedProscar 5 mg, 1 tab, Route: PO, Drug form: TAB, Daily, Start date: 10/06/16 10:00:00 RETAIL SELLING SPECIALIST , Duration: 30 day, Stop date: 11/05/16 9:00:00 RETAIL SELLING SPECIALIST Notes: (Same as: Proscar) "Do Not Crush"Women of childbearing age should not touch or handle broken tablets Start Date: 10/06/16 Stop Date: 10/08/16 Status: DiscontinuedRocephin 1 gm, Route: IVPB, Drug form: PDR/INJ, [id number], Dosing Weight 66.636, kg, Start date: 10/04/16 18:00:00 RETAIL SELLING SPECIALIST, Duration: 30 day, Stop date: 11/02/16 18:00:00 RETAIL SELLING SPECIALIST Notes: (Same As: Rocephin).Use with 100 mL NS and infuse over 30 min MEDICATION WASTE Product Size: 1000 mgProduct Wasted: ___ mg Start Date: 10/04/16 Stop Date: 10/08/16 Status: DiscontinuedSaline Flush 0.9% 10 mL, Route: MISC, Drug Form: INJ, Dosing Weight 66.818, kg, PRN, PRN Line Flush, Start date: 10/04/16 8:25:00 RETAIL SELLING SPECIALIST, Duration: 30 day, Stop date: 11/03/16 8 :24:00 RETAIL SELLING SPECIALIST Notes: (Same as: BD Posiflush) Start Date: 10/04/16 Stop Date: 10/08/16 Status: DiscontinuedSinemet 25 mg-250 mg oral tablet 1 tab, Route: PO, Drug Form: TAB, Dosing Weight 66.636, kg, TID, NOW, Start date : 10/04/16 20:43:00 RETAIL SELLING SPECIALIST, Stop date: 11/03/16 17:00:00 RETAIL SELLING SPECIALIST Notes: Take with milk or food. (Same As: Sinemet) Start Date: 10/04/16 Stop Date: 10/08/16 Status: DiscontinuedSinemet 25 mg-250 mg oral tablet 2 tab, PO, TID, 0 Refill(s) Start Date: 10/04/16 Stop Date: 10/08/16 Status: DiscontinuedSinemet 25 mg-250 mg oral tablet 1 tab, PO, TID, 0 Refill(s) Start Date: 10/08/16 Status: OrderedVESIcare 10 mg, Route: PO, Drug form: TAB, Daily, Dosing Weight 66.636, kg, Start date: 10/05/16 9:00:00 RETAIL SELLING SPECIALIST,Duration: 30 day, Stop date: 11/03/16 9:00:00 RETAIL SELLING SPECIALIST Start Date: 10/05/16 Stop Date: 10/04/16 Status: DeletedZithromax 250 mg, 1 tab, Route: PO, Drug form: TAB, [id number], Dosing Weight 66.636, kg, Priority: NOW, Start date: 10/04/16 17:48:00 RETAIL SELLING SPECIALIST, Stop date: 11/02/16 17:48:00 RETAIL SELLING SPECIALIST Notes: Take 1 hour before or 2 hours after meals.(Same As: Zithromax) Start Date: 10/04/16 Stop Date: 10/08/16 Status: DiscontinuedZofran 4 mg, 1 tab, Route: PO, Drug form: TAB, QAM, Dosing Weight 66.636, kg, PRN Nausea, Start date: 10/06/16 7:35:00 RETAIL SELLING SPECIALIST, Duration: 30 day, Stop date: 11/05/16 7:34:00 RETAIL SELLING SPECIALIST Notes: (Same as: Zofran) Start Date: 10/06/16 Stop Date: 10/08/16 Status: DiscontinuedZofran 4 mg, 2 mL, Route: IVP, Drug form: INJ, Q8H, Dosing Weight 66.818, kg, PRN Nausea, Priority: NOW, Start date: 10/04/16 11:59:00 RETAIL SELLING SPECIALIST, Duration: 30 day, Stop date: 11/03/16 11:58:00 RETAIL SELLING SPECIALIST Notes: (Same as: Zofran) MEDICATION WASTE Product Size: 4 mgProduct Wasted: ___ mg Start Date: 10/04/16 Stop Date: 10/08/16 Status: DiscontinuedZofran 4 mg, 1 tab, Route: PO, Drug form: TAB, QAM, Dosing Weight 66.636, kg, Start date: 10/05/16 9:00:00 RETAIL SELLING SPECIALIST, Duration: 30 day, Stop date: 11/03/16 9:00:00 RETAIL SELLING SPECIALIST Notes: (Same as: Zofran) Start Date: 10/05/16 Stop Date: 10/06/16 Status: DiscontinuedZofran 4 mg oral tablet 4 mg=1 tab, PO, QAM, 6AM, 0 Refill(s) Start Date: 10/04/16 Status: Ordered Results ELECTROLYTES Most recent to oldest 1 2 3 [Reference Range]: Sodium Lvl [135-145 mEq/L] 142 mEq/L 143 mEq/L 140 mEq/L (10/07/16 4:21 AM) (10/06/16 5:38 AM) (10/05/16 2:37 AM) Potassium Lvl [3.5-5.1 3.5 mEq/L 3.7 mEq/L 3.9 mEq/L mEq/L] (10/07/16 4:21 AM) (10/06/16 5:38 AM) (10/05/16 2:37 AM) Chloride Lvl [95-109 mEq/L] 104 mEq/L 105 mEq/L 102 mEq/L (10/07/16 4:21 AM) (10/06/16 5:38 AM) (10/05/16 2:37 AM) CO2 [24-32 mEq/L] 24 mEq/L 22 mEq/L 26 mEq/L (10/07/16 4:21 AM) *LOW* (10/05/16 2:37 AM) (10/06/16 5:38 AM) AGAP [10.0-20.0 mEq/L] 17.5 mEq/L 19.7 mEq/L 15.9 mEq/L (10/07/16 4:21 AM) (10/06/16 5:38 AM) (10/05/16 2:37 AM) CHEM PANEL Most recent to oldest 1 2 3 [Reference Range]: Creatinine Lvl [0.50-1.40 0.88 mg/dL 0.91 mg/dL 0.98 mg/dL mg/dL] (10/07/16 4:21 AM) (10/06/16 5:38 AM) (10/05/16 2:37 AM) eGFR 78 mL/min/1.73m2 1 76 mL/min/1.73m2 2 69 mL/min/1.73m2 3 *NA* *NA* *NA* (10/07/16 4:21 AM) (10/06/16 5:38 AM) (10/05/16 2:37 AM) BUN [7-22 mg/dL] 18 mg/dL 23 mg/dL 24 mg/dL (10/07/16 4:21 AM) *HI* *HI* (10/06/16 5:38 AM) (10/05/16 2:37 AM) Glucose Lvl [70-99 mg/dL] 82 mg/dL 66 mg/dL 104 mg/dL (10/07/16 4:21 AM) *LOW* *HI* (10/06/16 5:38 AM) (10/05/16 2:37 AM) Total Protein [6.4-8.4 5.9 g/dL 6.6 g/dL g/dL] *LOW* (10/04/16 9:05 AM) (10/07/16 4:21 AM) Albumin Lvl [3.5-5.0 g/dL] 3.0 g/dL 3.4 g/dL *LOW* *LOW* (10/07/16 4:21 AM) (10/04/16 9:05 AM) Globulin [2.7-4.2 g/dL] 2.9 g/dL 3.2 g/dL (10/07/16 4:21 AM) (10/04/16 9:05 AM) A/G Ratio [0.7-1.6] 1.0 1.1 (10/07/16 4:21 AM) (10/04/16 9:05 AM) Calcium Lvl [8.5-10.5 8.8 mg/dL 8.7 mg/dL 8.2 mg/dL mg/dL] (10/07/16 4:21 AM) (10/06/16 5:38 AM) *LOW* (10/05/16 2:37 AM) Phosphorus [2.5-4.5 mg/dL] 2.6 mg/dL 3.2 mg/dL 3.0 mg/dL (10/07/16 4:21 AM) (10/06/16 5:38 AM) (10/05/16 2:37 AM) Magnesium Lvl [1.8-2.4 2.1 mg/dL 2.5 mg/dL 2.4 mg/dL mg/dL] (10/07/16 4:21 AM) *HI* (10/05/16 2:37 AM) (10/06/16 5:38 AM) ALT [0-65 unit/L] 11 unit/L 10 unit/L (10/07/16 4:21 AM) (10/04/16 9:05 AM) AST [0-37 unit/L] 11 unit/L 13 unit/L (10/07/16 4:21 AM) (10/04/16 9:05 AM) Alk Phos [39-136 unit/L] 105 unit/L 127 unit/L (10/07/16 4:21 AM) (10/04/16 9:05 AM) Bili Total [0.2-1.3 mg/dL] 0.3 mg/dL 0.4 mg/dL (10/07/16 4:21 AM) (10/04/16 9:05 AM) Bili Direct [0.0-0.3 mg/dL] 0.1 mg/dL 0.1 mg/dL (10/07/16 4:21 AM) (10/04/16 9:05 AM) Bili Indirect [0.0-1.0 0.2 mg/dL 0.3 mg/dL mg/dL] (10/07/16 4:21 AM) (10/04/16 9:05 AM) Lipase Lvl [73-393 unit/L] 69 unit/L *LOW* (10/04/16 9:05 AM) 1Result Comment: The eGFR is calculated [...] Range]: 1 2 3 Troponin-I [0.00-0.40 ng/mL] <0.02 ng/mL (10/04/16 9:05 AM) PARATHYROID PROFILE Most recent to oldest 1 2 3 [Reference Range]: Ca Ion WB [1.05-1.25 mMol/L] 1.14 mMol/L 1.11 mMol/L 1.08 mMol/L (10/07/16 4:21 AM) (10/06/16 5:38 AM) (10/05/16 2:37 AM) Ca Norm WB [1.05-1.25 1.12 mMol/L 1.13 mMol/L 1.08 mMol/L mMol/L] (10/07/16 4:21 AM) (10/06/16 5:38 AM) (10/05/16 2:37 AM) TOXICOLOGY Most recent to oldest [Reference Range]: 1 2 3 Phenytoin Total [10.0-20.0 ug/ml] 5.8 ug/ml *LOW* (10/05/16 11:10 AM) URINE AND STOOL Most recent to oldest [Reference Range]: 1 2 3 UA Turbidity [Clear] Clear (10/04/16 10:46 AM) UA Color [Yellow] Yellow *NA* (10/04/16 10:46 AM) UA pH [5.0-8.0] 8.0 (10/04/16 10:46 AM) UA Spec Grav [<=1.030] 1.010 (10/04/16 10:46 AM) UA Glucose [Negative mg/dL] Negative mg/dL (10/04/16 10:46 AM) UA Blood [Negative] Negative (10/04/16 10:46 AM) UA Ketones [Negative mg/dL] Negative mg/dL *NA* (10/04/16 10:46 AM) UA Protein [Negative mg/dL] Negative mg/dL (10/04/16 10:46 AM) UA Urobilinogen [0.1-1.0 EU/dL] 0.2 EU/dL (10/04/16 10:46 AM) UA Bili [Negative] Negative *NA* (10/04/16 10:46 AM) UA Leuk Est [Negative] Negative (10/04/16 10:46 AM) UA Nitrite [Negative] Negative (10/04/16 10:46 AM) UA WBC [None Seen] None Seen (10/04/16 10:46 AM) UA RBC [0-2] None Seen (10/04/16 10:46 AM) UA Bacteria [None Seen /HPF] Occasional /HPF (10/04/16 10:46 AM) UA Sq Epi [Few /LPF] Rare /LPF (10/04/16 10:46 AM) UA Mucus [None Seen] None Seen (10/04/16 10:46 AM) HEMATOLOGY Most recent to oldest 1 2 3 [Reference Range]: WBC [3.7-10.4 K/CMM] 6.7 K/CMM 6.5 K/CMM 8.9 K/CMM (10/07/16 4:21 AM) (10/06/16 5:38 AM) (10/05/16 2:37 AM) RBC [4.70-6.10 M/CMM] 3.63 M/CMM 3.32 M/CMM 3.39 M/CMM *LOW* *LOW* *LOW* (10/07/16 4:21 AM) (10/06/16 5:38 AM) (10/05/16 2:37 AM) Hgb [14.0-18.0 g/dL] 11.3 g/dL 10.3 g/dL 10.6 g/dL *LOW* *LOW* *LOW* (10/07/16 4:21 AM) (10/06/16 5:38 AM) (10/05/16 2:37 AM) Hct [42.0-54.0 %] 32.7 % 30.4 % 31.3 % *LOW* *LOW* *LOW* (10/07/16 4:21 AM) (10/06/16 5:38 AM) (10/05/16 2:37 AM) MCV [80.0-94.0 fL] 90.2 fL 91.8 fL 92.4 fL (10/07/16 4:21 AM) (10/06/16 5:38 AM) (10/05/16 2:37 AM) MCH [27.0-31.0 pg] 31.2 pg 31.2 pg 31.2 pg *HI* *HI* *HI* (10/07/16 4:21 AM) (10/06/16 5:38 AM) (10/05/16 2:37 AM) MCHC [32.0-36.0 g/dL] 34.6 g/dL 33.9 g/dL 33.8 g/dL (10/07/16 4:21 AM) (10/06/16 5:38 AM) (10/05/16 2:37 AM) RDW [11.5-14.5 %] 12.8 % 12.8 % 12.7 % (10/07/16 4:21 AM) (10/06/16 5:38 AM) (10/05/16 2:37 AM) Platelet [133-450 K/CMM] 218 K/CMM 189 K/CMM 181 K/CMM (10/07/16 4:21 AM) (10/06/16 5:38 AM) (10/05/16 2:37 AM) MPV [7.4-10.4 fL] 8.4 fL 8.2 fL 8.6 fL (10/07/16 4:21 AM) (10/06/16 5:38 AM) (10/05/16 2:37 AM) Segs [45.0-75.0 %] 63.0 % 71.3 % 78.9 % (10/07/16 4:21 AM) (10/06/16 5:38 AM) *HI* (10/05/16 2:37 AM) Lymphocytes [20.0-40.0 %] 17.4 % 12.4 % 6.7 % *LOW* *LOW* *LOW* (10/07/16 4:21 AM) (10/06/16 5:38 AM) (10/05/16 2:37 AM) Monocytes [2.0-12.0 %] 6.2 % 4.3 % 5.6 % (10/07/16 4:21 AM) (10/06/16 5:38 AM) (10/05/16 2:37 AM) Eosinophils [0.0-4.0 %] 12.7 % 11.6 % 8.6 % *HI* *HI* *HI* (10/07/16 4:21 AM) (10/06/16 5:38 AM) (10/05/16 2:37 AM) Basophils [0.0-1.0 %] 0.7 % 0.4 % 0.2 % (10/07/16 4:21 AM) (10/06/16 5:38 AM) (10/05/16 2:37 AM) Segs-Bands # [1.5-8.1 4.2 K/CMM 4.6 K/CMM 6.5 K/CMM K/CMM] (10/07/16 4:21 AM) (10/06/16 5:38 AM) (10/05/16 2:37 AM) Lymphocytes # [1.0-5.5 1.2 K/CMM 0.8 K/CMM 0.6 K/CMM K/CMM] (10/07/16 4:21 AM) *LOW* *LOW* (10/06/16 5:38 AM) (10/05/16 2:37 AM) Monocytes # [0.0-0.8 K/CMM] 0.4 K/CMM 0.3 K/CMM 0.5 K/CMM (10/07/16 4:21 AM) (10/06/16 5:38 AM) (10/05/16 2:37 AM) Eosinophils # [0.0-0.5 0.8 K/CMM 0.8 K/CMM 0.7 K/CMM K/CMM] *HI* *HI* *HI* (10/07/16 4:21 AM) (10/06/16 5:38 AM) (10/05/16 2:37 AM) RBC Morph Normal (10/04/16 9:05 AM) Plt Morph Normal (10/04/16 9:05 AM) PT [12.0-14.7 seconds] 14.9 seconds *HI* (10/04/16 9:05 AM) INR [0.85-1.17] 1.15 (10/04/16 9:05 AM) PTT [22.9-35.8 seconds] 30.3 seconds (10/04/16 9:05 AM) Immunizations Given and Recorded Vaccine Date Status [...] 3-4 times/week.2 Employment/School Work/School description: 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 Alcohol use [...] Days No; Reg Smoking Cessation Counseling No [id number], 2 [id number] Assessment and Plan Extracted from: Title: Discharge Summary Author: Beryl Ortiz MD Date: 10/08/16 Discharge Information Discharge Summary Information: Admitted 10/04/2016, Discharged 10/08/2016. Admitting physician: Fely Herrera MD. Referring physician for admission: Ana Rosa Cooney MD. Consulting physician: Carloz Friedman MD, Tong Johansen MD, Madeline Joy MD. Admitting diagnosis: Constipation, slow transit (TGU27-UO K59.01, Working , Medical), Parkinsonism (APN75-QH G20, Working, Medical), AF (atrial fibrillation) (MZL99-IW I48.91, Working, Medical), His tory of CVA (cerebrovascular accident) (GCX46-KL Z86.73, Working, Medical). Discharge diagnosis: Constipation, slow transit (PWV36-LF K59.01, Working , Medical), Parkinsonism (FZY53-MJ G20, Working, Medical), AF (atrial fibrillation) (OOT15-AN I48.91, Working, Medical), His tory of CVA (cerebrovascular accident) (VQJ94-RI Z86.73, Working, Medical), Cancer of colon (CKT11-KS C18.9, Working, Medical), Dysphagia (SSR83-OX R13.10, Working, Medical), HTN - Hypertension (ICD10-C M I10, Working, Medical), Seizures complicating intracranial hemorrhage (ICD10- CM G40.89, Working, Medical). Discharge Plan Discharge Summary Plan Discharge Status: improved. Discharge instructions given: to patient, to family member (son, home health aids), to caregiver. Discharge disposition: discharge to home (into the care of family member, with home health care). Prescriptions: continue same medications, reviewed (with patient, with caregiver). Diagnosis Constipation, slow transit (JLO40-FA K59.01, Working, Medical). Parkinsonism (HDO94-BD G20, Working, Medical). AF (atrial fibrillation) (HTX78-IO I48.91, Working, Medical). History of CVA (cerebrovascular accident) (PJC70-YN Z86.73, Working, Medical). Cancer of colon (WBC37-VJ C18.9, Working, Medical). Dysphagia (SKC85-OK R13.10, Working, Medical). HTN - Hypertension (MWN88-IT I10, Working, Medical). Seizures complicating intracranial hemorrhage (JEG83-DR G40.89, Working, Medical). Course Progressing as expected. Education and Follow-up Counseled: patient, family. Teaching Attending Attestation Note: I have seen and examined the patient with the resident on 10/08/16; and I have reviewed the vitals and laboratory results. I discussed the patient on Geriatric Team rounds, and agree with Dr. Ortiz's findings as well as plan as documented in the resident s note. Dispo- discharge home today with 24 hour care. patient tolerating po well with no vomiting with po intake for 2 days. Total Time > 35 minutes: of which >50% time spent includes: patient reassessment and discussion with caregiver at bedside regarding thicked, as well as discussed with patient, review and interpretation of data including the laboratory da ta and imaging results, medical discussion risk and benefits of thickener, medication reconciliation review, and coordination of patient care. Fely Herrera MD Geriatric Attending Extracted from: Title: Geriatrics Progress Note Author: Beryl Ortiz MD Date: Patient: GABRIEL FALCON Age: 85 years Sex: Male : 1930 Associated Diagnoses: None Author: Beryl Ortiz MD Basic Information No acute events overnight. Patient with BM x 2 today. Tolerating PO. Barium swallow revealed continued aspirtation on this liquids. Subjective Patient seen sitting up with caregiver at bedside. States that he feels well. Review of Systems As above. Health Status Allergies: Allergic Reactions (Selected) Severity Not Documented NKDA- No reactions were documented. 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 / Stable MELECIO - Obstructive sleep apnea / SNOMED CT 0001105713 / Confirmed MELECIO - Obstructive sleep apnea / SNOMED CT 4191838572 / Confirmed Retention of urine / SNOMED CT 373587708 / Confirmed needs straight cath every 6 hrs or as needed if bladder is distended Stroke / SNOMED CT 447762602 / Confirmed Resolved: AF (atrial fibrillation) / ICD-9-CM 427.31 Resolved: Bowel obstruction / SNOMED CT 068054578 Resolved: Cancer of colon / SNOMED CT 0079369105 Resolved: CVA (cerebral vascular accident) / ICD-9-CM 434.91 Resolved: Dysphagia / SNOMED CT 61302554 Resolved: Hyponatremia / SNOMED CT 561592921 Resolved: MRSA / SNOMED CT 076167884 Resolved: Psoriasis / SNOMED CT 21526056 Resolved: Seizures complicating intracranial hemorrhage / SNOMED CT 8541458037 Resolved: Shingles / SNOMED CT [id number] Resolved: Skin at risk of breakdown / SNOMED CT 8389912255 Resolved: TIA (transient ischemic attack) / ICD-9-CM 435.9 Canceled: CHF - Congestive heart failure / SNOMED CT 290138120 Canceled: Chronic pain / SNOMED CT 559316429 Canceled: Headache / SNOMED CT 97431053 Objective Meds Scheduled Meds: None Unscheduled Meds: None PRN Meds: None One Time Meds: None Continuous Infusions: None I&O Input/Output Record In Out Bal 10/08 24hr Tot 250 0 250 10/07 24hr Tot 1160 400 760 VS/Measurements Vital Signs (last 24 hrs) Last Charted Temp Oral 97.7 DegF (OCT 08 11:45) Heart Rate Peripheral L 54bpm (OCT 08 11:45) Resp Rate 16 BRMIN (OCT 08 07:10) SBP 134 mmHg (OCT 08 11:45) DBP L 58mmHg (OCT 08 11:45) SpO2 95 % (OCT 08 11:45) General: Alert and oriented. Eye: Pupils are equal, round and reactive to light, Extraocular movements are intact. HENT: Normocephalic, Oral mucosa is moist. Neck: Supple, Non-tender, No lymphadenopathy. Respiratory: Breath sounds are equal, Symmetrical chest wall expansion, fine crackels diffusely . Cardiovascular: Normal rate, No murmur, No edema, irregular rhythm. Gastrointestinal: Soft, Non-tender, Normal bowel sounds, umbilical hernia. Musculoskeletal Normal range of motion. tremulous. Integumentary: Warm, Dry. Neurologic: Alert, Oriented, Cranial Nerves II-XII are grossly intact, resting tremor. Psychiatric: Cooperative, Appropriate mood & affect. Review / Management Results review: Labs (Last four charted values) WBC 6.7 (NOV 17) 6.5 (NOV 16) 8.9 (NOV 15) H 13.2 (NOV 14) Hgb L 11.3 (NOV 17) L 10.3 (NOV 16) L 10.6 (NOV 15) L 11.3 ( NOV 14) Hct L 32.7 (NOV 17) L 30.4 (NOV 16) L 31.3 (NOV 15) L 33.4 ( NOV 14) Plt 218 (NOV 17) 189 (NOV 16) 181 (NOV 15) 205 (NOV 14) Na 142 (NOV 17) 143 (NOV 16) 140 (NOV 15) 139 (NOV 14) K 3.5 (NOV 17) 3.7 (NOV 16) 3.9 (NOV 15) 4.2 (NOV 14) CO2 24 (NOV 17) L 22 (NOV 16) 26 (NOV 15) 31 (NOV 14) Cl 104 (NOV 17) 105 (NOV 16) 102 (NOV 15) 98 (NOV 14) Cr 0.88 (NOV 17) 0.91 (NOV 16) 0.98 (NOV 15) H 1.51 (NOV 14) BUN 18 (NOV 17) H 23 (NOV 16) H 24 (NOV 15) H 25 (NOV 14) Glucose Random 82 (NOV 17) L 66 (NOV 16) H 104 (NOV 15) H 133 (NOV 14) Mg 2.1 (NOV 17) H 2.5 (NOV 16) 2.4 (NOV 15) 2.3 (NOV 14) Phos 2.6 (NOV 17) 3.2 (NOV 16) 3.0 (NOV 15) 3.8 (NOV 14) Ca 8.8 (NOV 17) 8.7 (NOV 16) L 8.2 (OCT 05) 8.7 (OCT 04) PT H 14.9 (OCT 04) INR 1.15 (OCT 04) PTT 30.3 (OCT 04) Troponin <0.02 (OCT 04) . Impression and Plan Mr. Gabriel Falcon is an 85-year-old male with a past medical history significant for stroke with left-sided hemiparesis secondary parkinsonism, vascular dementia, mood disorder, dysphagia, col on cancer, status post resection and chemotherapy, abdominal ventral hernia, hypertension, atrial fibrillation on aspirin only secondary to fall risk, admitted intractable vomiting. Currently N/V has re sovled and is pending evaluation by cardiology, GI, and pulmonology. #Chronic Constipation - vomiting resovled >24 hours - Hx of SBO vs fecal impaction (appears more fecal impaction) - GI on board. Appreciate recs. Constipation thought to be 2/2 PD vs medications. Added miralax, bisacodyl. - informed patient that detrol may contribute to constipation. Son declines to stop detrol at this time. - KUB significant for stool and gas but no obstruction noted - CT brain w/o unrevealing - zofran q8, docusate, colace, align daily, metoclopramide 4x/day, miralax daily, biscodyl. - discussed with son at length the need for robust bowel regimen at home and likely multifactorial nature of his constipation. Encouraged M&M enemas should he not pass stool >72hours. #HTN - nifedipine 90 daily ER, hydrochlorothiazide 12.5 mg PO Daily,bystolic 5 mg daily, benicar 20 mg daily, hydralazine is the only home med held now. BP at the moment - Dr. Joy, Cardiology on board, appreciate recommendations. - Echo WNL, - Will not adjust BP regimen as per Dr. Joy. #afib, paroxysmal - no anticoagulation due to reported bleeding and fall risk as per son and Neurology - on ASA 325 daily, will continue #PNA- likely from chronic aspiration - had leukocytosis, no fever, CXR with reticular opacities dating back to 2011. - strong concern for aspiration, however patient improving on current abx regimen - pulomonary on board, appreciate recs - will continue rocephin and azithro for now and will transisiton to levaquin PO for full 7 day course on discharge. - Pt require outpt pulmonology follow up with PFTs and CT scan in 1 month #Secondary Parkinsonism, etiology previous CVA - carbidopa-levodopa (Sinemet 25 mg-250 mg oral tablet) 2 tab PO TID - per neuro, decreased to 1tab TID as could be culprit in constipation/slowed motility #seasonal allergies - cetirizine 10 mg PO Daily, flonase, continue this home regimen #BPH - on finasteride, flomax, and vesicare, continue this home regimen #depression/anxiety - continue home buspar and mirtazipine #epilepsy - last known seizure 4+ years ago - continue home lamictal and pheytoin #GERD - continue home pantoprazole 40 #AMEYA - resolved - will stop LR as patient now with PO intake - will monitor BMP as appropriate #Dysphagia - Barium swallow with continued thin fluid aspiration - dysphagia diet with chopped food, and nectar thick fluids Dispo: to home. He has 2 home health aids DVT: 5000 heparin q8 Diet: Chopped Diet, 1:1 while eating Beryl Ortiz MD [facility], Internal Medicine PGY-2 Addendum by Fely Herrera MD on Teaching Attending Attestation Note: 10/09/2016 21:43 I have seen and examined the patient with the resident on ; and I have reviewed the vitals and laboratory results. I discussed the patient on Geriatric Team rounds, and agree with Dr. Ortiz's findings as well as plan as documented in the resident s note. Dispo- discharge home today with 24 hour care. patient tolerating po well with no vomiting with po intake for 2 days. Total Time > 35 minutes: of which >50% time spent includes: patient reassessment and discussion with caregiver at bedside regarding thicked, as well as discussed with patient, review and interpretation of data including the laboratory da ta and imaging results, medical discussion risk and benefits of thickener, f/ u with pcp upon discharge, medication reconciliation review, and coordination of patient care. Fely Herrera MD Geriatric Attending Extracted from: Title: Pulmonology Initial Consult Author: Angel Livingston DO Date: Note Impression and Plan Mr. Falcon is a 85yo M w/ PMHx of CVA w/ residual L sided weakness, Parkinson' s Disease, Dementia, Colon cancer (s/p resection), A-fib, HTN, and chronic dysphagia who presented to the ED with c/o of in tractable vomiting concerning for bowel obstruction. CXR concerning for worsening reticular opacities, possibly 2/2 aspiration pneumonia vs CAP vs ILD. No Chest CT available, though abdominal CT reveals lower lobes to have some posterior opacities. Son reports history of dysphagia and aspiration, so persistent aspiration is possible cause. Patient is currently on day 2 of antibiotic regimen per primary team. Awaiting chest CT from OSH. Problem List: #Intractable Vomiting #Parkinson's #Vascular Dementia #Chronic Dysphagia #A-fib #Hx of CVA #HTN Recommendations: - Opacities seen on CXR and abdominal CT possibly 2/2 aspiration vs CAP vs ILD - Continue Azithromycin and Rocephin regimen - Due to Hx of aspiration, consider adding flagyl for anerobic coverage -Recommend Consult to speech pathology for in house barium swallow test - Please obtain OSH record of Chest CT - Patient will need to follow up with outpatient Pulm clinic upon discharge Thank you fro the interesting consult. We will continue to follow. Angel Livingston DO PGY-1 Anesthesiology [id number] Extracted from: Title: stephen h/p Author: Papito Sahu MD Date: 10/04/16 CC: vomiting HPI: Yaneli is an 85 year old man with PMH as follows: CVA with left residual weakness, parkinsons, dementia (vascular), dysphagia, colon ca s/p resection and chemo 6 yrs ago. seizure, psoriasis, htn, bph, afib not on anticoag (ASA only) due to fall risk. He has had a recent hx of episodes of intractable vomiting possibly due to bowel dysmobility in the last 3 yrs. Also complicated by multiple bouts of likely aspiration PNA. Son is MPOA and gave most of the history. He reportedly had episodes of this vomiting and bowel obstruction starting 3 yrs ago. Has been progressive. Initially would just vomi t once and resolve afterwards. Been getting progressively more worrisome with extended periods of vomiting. Was admitted multiple times where he has been kept BPO at OSH and diet slowly advanced. Someti mes he gets NG tube for compression during these episodes. Surgery has evaled multiple times but he has no obstruction for surgical correction. Was last hospitalized 1 wk ago where he was found to have tropnemia and treated with CHF exacerbation per son with lasix. Possible overdiuresis given his urine was brown at the end of that admission and his Cr is elevated now. Did not get echo due to recent on e as outpatient about 3 months ago. Results unknown. Did get a stress test which showed reversible changes with exercise and also EF of 44%. He was discharged on Tuesday due to lack of vomiting, but he was NPO and given liquid diet at that time. Went home and vomited the next morning, at which point PCP Dr cooney was contacted and the patient was encouraged to come to [facility]. This hospitalization was co mplicated by what appears to be aspiration PNA on imaging. He is requring O2 now which is not his baseline. He presents today after multiple episodes of vominting since discharge from [facility]. Report s requested from that hospitalzation. Some records already here. No BM since tuesday 4 days ago. Constitutional Symptoms: No fever, no malaise, no genearlized weakness Eyes: No redness, diplopia, or loss of vision Ears, Nose, Mouth, Throat: No dysphagia, no odynophagia Cardiovascular: denies chest pain, SoB, dyspnea, orthopnea Respiratory: Denies cough, denies hemoptsis Gastrointestinal: see HPI Genitourinary: see HPI Musculoskeletal: No arthralgias or myalgias expect left arm weakness due to rotator cuff tear Integumentary (skin and/or breast): No rash, no inflammation, no lymphadenopathy Neurological: No weakness, headache, seizure, dizziness, tingling, or numbness PMH as above PSH- cholecystectimy, deviated septum repair, complete colon resection, bilat inguinal hernia repair, rotator cuff repair Allergies NKDA Family History Alzheimer's disease: Mother. CA - Cancer of colon: Brother. Cancer: Brother. Heart attack: Brother. Heart disease: Brother. Hepatitis: Father. Social History Social hx- No alcohol. Tabacco 16 pack years, remote hx, no illicit drugs Meds Scheduled Meds (26): 10/04/16 17:06 NIFEdipine (NIFEdipine 90 mg oral tablet, extended release) 90 mg PO Lunch 10/05/16 9:00 aspirin (aspirin 325 mg tablet) 325 mg PO Daily 10/04/16 17:48 azithromycin (azithromycin 500 mg oral tablet) 500 mg PO [id number] 10/05/16 9:00 busPIRone (BuSpar) 10 mg PO BID 10/05/16 9:00 carbidopa-levodopa (Sinemet 25 mg-250 mg oral tablet) 2 tab PO TID 10/04/16 18:00 cefTRIAXone (Rocephin) 1 gm IVPB [id number] 10/04/16 19:00 cetirizine 10 mg PO Daily 10/05/16 9:00 cyanocobalamin 1,000 microgram PO Daily 10/05/16 9:00 finasteride 0.5 mg PO Daily 10/04/16 17:46 fluticasone nasal (Flonase 0.05 mg/inh nasal spray) 1 spray NASAL Daily 10/04/16 21:00 gabapentin (Neurontin 300 mg oral capsule) 300 mg PO Bedtime 10/05/16 0:00 heparin 5,000 unit SUB-Q Q8H 10/05/16 9:00 hydrochlorothiazide 12.5 mg PO Daily 10/05/16 9:00 lactobacillus rhamnosus GG (Culturelle HS) 1 cap PO Daily 10/05/16 9:00 lamoTRIgine (LaMICtal) 100 mg PO BID 10/04/16 21:00 metoclopramide (metoclopramide 10 mg oral tablet) 10 mg PO QID- Before Meals 10/04/16 21:00 mirtazapine 7.5 mg PO Bedtime 10/05/16 9:00 multivitamin with minerals (Centrum Men's) 1 tab PO Daily 10/05/16 9:00 nebivolol (Bystolic) 5 mg PO Daily 10/05/16 9:00 olmesartan (Benicar) 20 mg PO Daily 10/05/16 9:00 ondansetron (Zofran) 4 mg PO QAM 10/05/16 7:30 pantoprazole 40 mg PO Before Breakfast 10/04/16 21:00 phenytoin 400 mg PO Bedtime 10/05/16 17:00 polyethylene glycol 3350 (MiraLax) 17 gm PO QPM 10/05/16 9:00 solifenacin (VESIcare) 10 mg PO Daily 10/04/16 21:00 tamsulosin (Flomax) 0.4 mg PO Bedtime Unscheduled Meds: None PRN Meds (4): 10/04/16 17:11 docusate (Colace 100 mg oral capsule) 100 mg PO BID 10/04/16 17:08 melatonin 3 mg PO Bedtime 10/04/16 11:59 ondansetron (Zofran) 4 mg IVP Q8H 10/04/16 8:25 sodium chloride (Saline Flush 0.9%) 10 mL MISC PRN One Time Meds (1): 10/04/16 11:07 (Completed) Sodium Chloride 0.9% IV (NS (Bolus) IV) 500 mL IV ONCE 500 ml/hr Continuous Infusions (1): 10/04/16 15:09 Lactated Ringers 1,000 mL 1,000 mL 75 ml/hr Vitals Tmp(F) Tmp(C) Ttype BP MAP Pulse RR SpO2 FIO2 ETCO2 10/04 14:00 98.3 36.83 oral 135/55 --- 65 18 91 --- --- 10/04 12:26 98.0 36.67 oral 96/51 --- 59 16 96 --- --- 10/04 10:15 98.0 36.67 oral 99/50 --- 60 16 96 --- --- 10/04 08:04 98.0 36.67 oral 97/45 --- 62 18 95 --- --- 24 Hr Tmax: 98.3F (36.83c) at 10/04 14:00 24 Hr Tmin: 98.0F (36.67c) at 12:26 36 Hr Tmax: 98.3F (36.83c) at 10/04 14:00 36 Hr Tmin: 98.0F (36.67c) at 12:26 Vital Signs are the last 5 in the past 48 hours. Weights are the last 5 in 60 days, plus initial. Date Wt(kg) Wt(lb) Ht(cm) Ht(in) Method BMI BSA 10/04 (initial) 66.82 147.00 Estimated 23.1 1.78 10/04 170.18 67.00 Stated Most Recent Scores: 10/04/16 Pain Intensity NRS (0-10) 0 Lines, Tubes, and Drains: 10/04/2016 13:17 Peripheral Lines: Forearm Left 22 gauge Over the needle catheter I/O Intake Output Balance 10/04/2016 7a-3p 500.00 0.00 500.00 3p-11p 0.00 0.00 0.00 As of 19:33 11p-7a 0.00 0.00 0.00 Totals 500.00 0.00 500.00 10/03/2016 7a-3p 0.00 0.00 0.00 3p-11p 0.00 0.00 0.00 11p-7a 0.00 0.00 0.00 Totals 0.00 0.00 0.00 10/02/2016 7a-3p 0.00 0.00 0.00 3p-11p 0.00 0.00 0.00 11p-7a 0.00 0.00 0.00 Totals 0.00 0.00 0.00 GENERAL: A&Ox3, no apparent distress, responds appropriately HEENT: Unremarkable. Extraocular movements are intact. Oral mucosa moist LUNGS: Clear to auscultation, no rales, rhonchi, or wheezes, some coarse breath sounds CARDIOVASCULAR: Regular rate and rhythm, no murmurs, rubs or gallops. ABDOMEN: Soft, nontender, no organomegaly. EXTREMITIES: No edema, no visible lesions NEUROLOGIC: CN I-XII intact, muscular strength preserved x4, no sensory deficits Assessment and Plan #Vomiting - long history of similar complaints, no nausea reported, vomiting "just comes up" - Some concern for retained contrast on kub which would be unusual given swallow study was done last week - paged GI Dr Friedman. Will see tmrw - KUB significant for stool and gas but no obstruction noted - CT brain w/o contrast ordered to assess for intracranial causes - zofran q8, docusate, colace, align daily, metoclopramide 4x/day, miralax daily. This is his home regimen #HTN - nifedipine 90 daily ER, hydrochlorothiazide 12.5 mg PO Daily,bystolic 5 mg daily, benicar 20 mg daily, hydralazine is the only home med held now. BP at the moment - can restart hydralazine if BP goes up #afib, paroxysmal - no anticoagulation due to bleeding and fall risk - on ASA 325 daily, will continue #PNA- CAP vs aspiration - has leukocytosis, is on O2, some coarse breath sounds and positive on CXR - will treat as CAP with rocephin and azithro for now - if no improvement can switch to aspiration appropriate regimen #Parkinsonism - carbidopa-levodopa (Sinemet 25 mg-250 mg oral tablet) 2 tab PO TID - this was recently increased and may be a cause of his lack of bowel mobility leading to constpiation and vomiting - Neuro called to assess approrpiateness of mediations #seasonal allergies - cetirizine 10 mg PO Daily, flonase, continue this home regimen #BPH - on finasteride, flomax, and vesicare, continue this home regimen #depression/anxiety - continue home buspar and mirtazipine #epilepsy - continue home lamictal and pheytoin #GERD - continue home pantoprazole 40 #AMEYA - bolused 500 cc in ED - Lactated Ringers 1,000 mL 1,000 mL 75 ml/hr #Dysphagia - said he passed multiple barium swallows at OSH but son said on last one repeated swallowing until laryngeal muscles were fatigued (?) and at that point there was some aspiration - OSH records requested. Dispo: to home. He has 2 home health aids which is down from before, when he had 4. Son states he recieves better care at home than at a senior care. Aides do PT, OT, medication management, and nursing services. Meticulous log kept by son DVT: 5000 heparin q8 Diet: NPO Papito Sahu MD, Internal Medicine, PGY-1 I have seen and examined the patient with the resident. I have reviewed the laboratory tests and imaging with the resident. I agree with their examination, findings and plan. for dyhsphagia with worsening N/V: Dr. Friedman from GI consulted, contineu NPO for now, also may consider speech pathology if needed after GI recs for parkinson's diseae and N/V - Dr. Kirby consulted from neurology for helping with dose adjustment for carbidopa and levadopa - she is patient's outpatient neurologist for constipation and stool impaction: tap water enema
--- OUTSIDE RECORDS SUMMARY | 2018-05-12 04:45 | XMS REPORT | Summary of Care ---
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 Alcohol use [...] Days No; Reg Smoking Cessation Counseling No [id number], 2 [id number] Assessment and Plan No data available for this section
--- OUTSIDE RECORDS SUMMARY | 2018-05-12 04:45 | XMS REPORT | Summary of Care ---
:[address] 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 Alcohol use [...] Days No; Reg Smoking Cessation Counseling No [id number], 2 [id number] Assessment and Plan No data available for this section
--- OUTSIDE RECORDS SUMMARY | 2018-05-12 04:45 | XMS REPORT | Summary of Care ---
:1930 Author Organization [facility] Address [address] [place] [phone] Encounter HQ Dona_devora(FIN) [id number] Date(s): 03/08/17 - 03/08/[address] [phone] Discharge Disposition: Home or Self Care Attending Physician: Tiesha Cason MD Referring Physician: Tiesha Cason MD Vital Signs Most recent to oldest [Reference Range]: 1 Height 170.18 cm (03/08/17 9:10 AM) Blood Pressure [90-140/60-90 mmHg] 120/68 mmHg (03/08/17 9:10 AM) Respiratory Rate [14-20 BRMIN] 20 BRMIN (03/08/17 9:10 AM) Peripheral Pulse Rate [60-100 bpm] 68 bpm (03/08/17 9:10 AM) Weight 67.273 kg (03/08/17 9:10 AM) Body Mass Index 23.23 m2 (03/08/17 9:10 AM) Problem List Condition Effective Dates Status [...] Substance Reaction Severity Status NKDA Active Medications amLODIPine 5 mg oral tablet 5 mg=1 tab, PO, Daily, 0 Refill(s) Start Date: 03/08/17 Status: OrderedBuSpar 1omg, PO, TID, 0 Refill(s) Start Date: 03/08/17 Status: Orderedcarbidopa-levodopa 10 mg-100 mg oral tablet 1 tab, PO, TID, 0 Refill(s) Start Date: 03/08/17 Status: OrderedhydrALAZINE 75 mg, PO, QID, 0 Refill(s) Start Date: 03/08/17 Status: Orderedmodafinil 100 mg oral tablet 100 mg=1 tab, PO, QAM, 0 Refill(s) Start Date: 03/08/17 Status: OrderedNeupro 1 mg/24 hr transdermal film, extended release 1 patch, TOP, Daily, # 30 patch, 0 Refill(s) Start Date: 03/08/17 Status: Ordered Results No data available for [...] 3-4 times/week.2 Employment/School Work/School description: 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 Alcohol use [...] Days No; Reg Smoking Cessation Counseling No [id number], 2 [id number] Assessment and Plan No data available for this section
--- OUTSIDE RECORDS SUMMARY | 2018-05-12 04:45 | XMS REPORT | Summary of Care ---
:1930 Author Organization [facility] Outpatient Imaging - [facility] Encounter HQ Pedro(ABI) [id number] Date(s): 05/20/17 - 05/20/17 [facility] Outpatient [facility] 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 Alcohol use [...] Days No; Reg Smoking Cessation Counseling No [id number], 2 [id number] Assessment and Plan No data available for this section
--- OUTSIDE RECORDS SUMMARY | 2018-05-12 04:45 | XMS REPORT | Summary of Care ---
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 Alcohol use [...] Days No; Reg Smoking Cessation Counseling No [id number], 2 [id number] Assessment and Plan No data available for this section
--- OUTSIDE RECORDS SUMMARY | 2018-05-12 04:45 | XMS REPORT | Summary of Care ---
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 Alcohol use [...] Days No; Reg Smoking Cessation Counseling No [id number], 2 [id number] Assessment and Plan No data available for this section
--- OUTSIDE RECORDS SUMMARY | 2018-05-12 04:46 | XMS REPORT | Summary of Care ---
:1930 Author Organization [facility] Address Unavailable , Encounter FORD Vasquez(ABI) [id number] Date(s): 04/25/18 - 04/25/18 [facility] [address] [place] [address], [address] [place] [address]- [place] [phone] Discharge Disposition: Home or Self Care Attending [...] Procedures Procedure Date Related Diagnosis Body Site Status Cholecystectomy 2010 Completed Bilateral repair of inguinal hernia, Completed direct1 Complete repair of rotator cuff2 Completed Complete resection of colon Completed Excision of gallbladder Completed Manipulation of deviated nasal septum Completed 1procedure x 32right shoulder, with small pin inserted Social History Social History Type Response Substance Abuse 1 Exercise Exercise duration: 60. 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 Alcohol use interferes with work or home: No. Drinks more than intended: No. Others hurt by drinking: No. Ready to change: No. Household alcohol concerns: No.4 Smoking Status Former smoker; Type: Cigarettes; Exposure to Tobacco Smoke None ; Cigarette Smoking Last 365 Days No; Reg Smoking Cessation Counseling No; Number of years: 14; Started at age: 15.0; Stopped at age: 31; entered on: 03/08/17 [id number], 2 [id number] Assessment and Plan No data available for this section
[2018-05-12 04:55] LABS: Absolute Monocytes 0.5 K/uL (0.1-1.3); Absolute Neutrophil 6.3 K/uL (1.8-8.0); Basophils % 0.5 % (0-1.3); Eosinophils % 5.2 % (0-4.4); Hematocrit 40.8 % (39.6-49.0); Lymphocytes % 21.2 % (15.3-44.8); MCH 30.2 pg (27.0-35.0); MCV 92.4 fL (80-100); MPV 8.5 fL (7.6-11.3); Monocytes % 5.6 % (3.3-12.3); RBC Red Blood Cell Count 4.42 M/uL (4.33-5.43)
[2018-05-12 05:02] LABS: Protime INR 1.08
[2018-05-12 05:56] LABS: ALT/SGPT 16 U/L (12-78); AST/SGOT 24 U/L (15-37); Albumin 3.4 g/dL (3.4-5.0); Alkaline Phosphatase 146 U/L (45-117); BUN Blood Urea Nitrogen 15 mg/dL (7-18); Bicarbonate 27 mmol/L (21-32); Bilirubin Direct < 0.1 mg/dL (0-0.2); Bilirubin Total 0.3 mg/dL (0.2-1.0); Glucose Level 189 mg/dL (74-106); Magnesium 2.1 mg/dL (1.8-2.4); Protein, Total 6.5 g/dL (6.4-8.2); Sodium Level 138 mmol/L (136-145)
--- NOTE | 2018-05-12 06:26 | EDPHYS ---
Physician Documentation [facility] Name: Marcial Groves Age: 87 yrs Sex: Male : 1930 Arrival Date: 05/12/2018 Time: 04:36 Bed 2 Private MD: ED Physician Geovanny Srivastava HPI: 05/12 06:20 This 87 yrs old Male presents to ER via EMS with unknown complaint. gs 06:20 The patient has shortness of breath at rest. Onset: The symptoms/episode began/occurred gs acutely, just prior to arrival. Duration: The symptoms are continuous. Unable to obtain HPI due to patient distress. Historical: - Allergies: 05:03 NKDA; lp1 - Home Meds: 05:03 aspirin 325 mg Oral TbEC 1 tab once daily [Active]; buspirone 10 mg Oral tab 1 tab 3 lp1 times per day [Active]; Bystolic 5 mg Oral tab 1 tab once daily for Hypertension [Active]; carbidopa-levodopa 25-100 mg Oral tab 3 times per day for Parkinsonism [Active]; dutasteride-tamsulosin 0.5-0.4 mg oral CM24 1 cap once daily [Active]; fexofenadine 180 mg Oral tab 1 tab once daily [Active]; melatonin 5 mg Oral cap nightly [Active]; hydrochlorothiazide 12.5 mg Oral cap 1 cap once daily [Active]; lamotrigine 100 mg oral tab 1 tab 2 times per day [Active]; memantine 28 mg Oral tab once daily [Active]; metoclopramide HCl 5 mg Oral tab 1 tab twice a day [Active]; Zofran (as hydrochloride) 4 mg Oral tab daily [Active]; pantoprazole 40 mg Oral TbEC 1 tab once daily [Active]; phenytoin sodium extended 100 mg oral cap 1 cap 4 times per day [Active]; Probiotic Oral daily [Active]; quetiapine 25 mg Oral tab 1 tab 3 times per day [Active]; Flomax 0.4 mg Oral cp24 1 cap once daily for Symptomatic Benign Prostatic Hyperplasia [Active]; trazodone 50 mg Oral tab nightly [Active]; Vesicare 10 mg Oral tab 1 tab once daily [Active]; vitamin B complex Oral tab daily [Active]; clonidine HCl 0.1 mg Oral tab every 8 hours [Active]; polyethylene glycol 3350 17 gram/dose oral powd 0.5 of powder twice a day [Active]; ondansetron HCl 4 mg Oral tab as needed [Active]; - PMHx: 05:03 10 BOWEL OBSTRUCTIONS ; "THEY DIDN'T HAVE TO OPERATE ON ANY OF THEM"; Atrial Fib; bowel lp1 incontinence; colon cancer; CVA; Dementia; Hypertension; Kidney stones; Pancreatitis; Parkinsons; prostatic hyperplasia; psoriasis; pulmonary fibrosis; UTI; VASCULAR DEMENTIA; - PSHx: 05:03 Unable to obtain; lp1 - Immunization history:: Adult Immunizations up to date. - Social history:: Smoking status: unknown. - Ebola Screening: : No symptoms or risks identified at this time No symptoms or risks identified at this time. ROS: 06:20 All other systems are negative. gs Exam: 06:20 Head/Face: Normocephalic, atraumatic. Eyes: Pupils equal round and reactive to light, gs extra-ocular motions intact. Lids and lashes normal. Conjunctiva and sclera are non-icteric and not injected. Cornea within normal limits. Periorbital areas with no swelling, redness, or edema. ENT: Nares patent. No nasal discharge, no septal abnormalities noted. Tympanic membranes are normal and external auditory canals are clear. Oropharynx with no redness, swelling, or masses, exudates, or evidence of obstruction, uvula midline. Mucous membranes moist. Neck: Trachea midline, no thyromegaly or masses palpated, and no cervical lymphadenopathy. Supple, full range of motion without nuchal rigidity, or vertebral point tenderness. No Meningismus. Chest/axilla: Normal chest wall appearance and motion. Nontender with no deformity. No lesions are appreciated. 06:20 Abdomen/GI: Soft, non-tender, with normal bowel sounds. No distension or tympany. No guarding or rebound. No evidence of tenderness throughout. Back: No spinal tenderness. No costovertebral tenderness. Full range of motion. MS/ Extremity: Pulses equal, no cyanosis. Neurovascular intact. Full, normal range of motion. 06:20 Constitutional: The patient appears alert, awake, in obvious distress, severely distressed. 06:20 Cardiovascular: Rate: tachycardic, Rhythm: regular, Pulses: no pulse deficits are appreciated. 06:20 ECG was reviewed by the Attending Physician. 06:20 Respiratory: severe repiratory distress is noted, Respirations: tachypnea, Breath sounds: rhonchi, that are severe, are heard diffusely. 06:20 Skin: Appearance: Color: pale. Vital Signs: 04:45 BP 192 / 123; Pulse 123; Resp 40; Pulse Ox 94% on Nebulizer Mask; Pain 0/10; mg2 04:49 Temp 97.7; lp1 05:00 BP 152 / 100; Pulse 93; Resp 40; Pulse Ox 97% on BiPAP; Pain 0/10; mg2 05:22 BP 133 / 87; Pulse 83; Resp 32; Pulse Ox 97% on BiPAP; Pain 0/10; mg2 06:35 BP 156 / 115; Pulse 92; Resp 30; Pulse Ox 100% on BiPAP; Pain 0/10; mg2 07:02 BP 155 / 93; Pulse 93; Resp 28; Pulse Ox 100% on BiPAP; mg2 MDM: 04:37 Patient medically screened. 06:20 Differential diagnosis: CHF exacerbation, Chronic Obstructive Pulmonary Disease gs Myocardial Infarction pneumonia. Data reviewed: vital signs, nurses notes. Response to treatment: the patient's symptoms have markedly improved after treatment, and as a result, I will admit patient. 05/12 04:39 Order name: Basic Metabolic Panel; Complete Time: 06:17 05/12 04:39 Order name: CBC with Diff; Complete Time: 06:17 05/12 04:39 Order name: LFT's; Complete Time: 06:17 05/12 04:39 Order name: Magnesium; Complete Time: 06:17 05/12 04:39 Order name: PT-INR; Complete Time: 06:17 05/12 04:39 Order name: Troponin (emerg Dept Use Only); Complete Time: 06:17 05/12 04:39 Order name: XRAY Chest (1 view) 05/12 04:39 Order name: BIPAP 05/12 04:39 Order name: Blood Culture* 05/12 06:04 Order name: Urine Dipstick--Ancillary (enter results) ms 05/12 06:31 Order name: ABG 05/12 04:39 Order name: EKG; Complete Time: 04:39 05/12 04:39 Order name: Cardiac monitoring; Complete Time: 04:51 05/12 04:39 Order name: EKG - Nurse/Tech; Complete Time: 04:51 05/12 04:39 Order name: IV Saline Lock; Complete Time: 04:52 05/12 04:39 Order name: Labs collected and sent; Complete Time: 04:52 05/12 04:39 Order name: O2 Per Protocol; Complete Time: 04:52 05/12 04:39 Order name: O2 Sat Monitoring; Complete Time: 04:52 05/12 04:39 Order name: Urine Dipstick-Ancillary (obtain specimen); Complete Time: 05:53 gs EC:20 Rate is 119 beats/min. Rhythm is regular. QRS interval is prolonged. QT interval is gs prolonged. T waves are Flattened. Clinical impression: NSR w/ Non-specific ST/T Changes and Abnormal EKG without significant change. Interpreted by me. Administered Medications: 04:51 Drug: AtroVENT Aerosol 0.5 mg Route: Inhalation; mg2 04:51 Drug: Albuterol 2.5 mg Route: Inhalation; mg2 04:51 Drug: Lasix 40 mg Route: IVP; Site: right hand; mg2 06:33 Follow up: Response: No adverse reaction; Blood pressure is lowered mg2 04:51 Drug: Lopressor 5 mg Route: IVP; Site: right hand; mg2 06:34 Follow up: Response: No adverse reaction; Blood pressure is lowered mg2 Disposition: 06:20 Critical Care:. gs Disposition: 05/12/18 06:26 Hospitalization ordered by She Schneider for Inpatient Admission. Preliminary diagnosis are Acute respiratory failure, Acute respiratory failure with hypoxia. - Bed requested for Telemetry/MedSurg (Inpatient). - Status is Inpatient Admission. hj - Condition is Stable. - Problem is new. - Symptoms have improved. UTI on Admission? No Critical care time excluding procedures: 06:20 Critical care time: Bedside Care: 10 minutes, Consultation: 10 minutes, Family gs Intervention: 10 minutes. Total time: 30 minutes Signatures: Dispatcher [employer] EDOK Bettina Garzon RN RN Francisca Chavira RN RN lp1 Ceasar Casas RN RN hj Starr, Gregory, MD MD Rakan Chacon RN RN mg2 Corrections: (The following items were deleted from the chart) 06:32 06:26 Hospitalization Ordered by She Schneider MD for Inpatient Admission. Preliminary mw diagnosis is Acute respiratory failure; Acute respiratory failure with hypoxia. Bed requested for Telemetry/MedSurg (Inpatient). Status is Inpatient Admission. Condition is Stable. Problem is new. Symptoms have improved. UTI on Admission? No. 07:54 06:32 05/12/2018 06:26 Hospitalization Ordered by She Schneider MD for Inpatient hj Admission. Preliminary diagnosis is Acute respiratory failure; Acute respiratory failure with hypoxia. Bed requested for Telemetry/MedSurg (Inpatient). Status is Inpatient Admission. Condition is Stable. Problem is new. Symptoms have improved. UTI on Admission? No. mw
--- NOTE | 2018-05-12 06:26 | ER ---
Nurse's Notes [facility] Name: Marcial Groves Age: 87 yrs Sex: Male : 1930 Arrival Date: 05/12/2018 Time: 04:36 Bed 2 Private MD: Diagnosis: Acute respiratory failure;Acute respiratory failure with hypoxia Presentation: 05/12 04:46 Presenting complaint: EMS states: Patient became short of breath 2 hours ago; Diagnosed lp1 with aspirations pneumonia last week; O2 sat of 77% on RA, improved to 93% on 10L NRB. Transition of care: patient was received from another setting of care (long-term care facility), [facility]. Onset of symptoms was May 12, 2018 at 02:30. Risk Assessment: Do you want to hurt yourself or someone else? Patient reports no desire to harm self or others. Initial Sepsis Screen: Does the patient meet any 2 criteria? No. Patient's initial sepsis screen is negative. Does the patient have a suspected source of infection? No. Patient's initial sepsis screen is negative. Care prior to arrival: Medication(s) given: Albuterol Neb x 1, Atrovent Neb x 1, Glucose check: 217 Oxygen administered. via a non-rebreather mask. 04:46 Method Of Arrival: EMS: [facility] lp1 04:46 Acuity: JER 2 lp1 Historical: - Allergies: 05:03 NKDA; lp1 - Home Meds: 05:03 aspirin 325 mg Oral TbEC 1 tab once daily [Active]; buspirone 10 mg Oral tab 1 tab 3 lp1 times per day [Active]; Bystolic 5 mg Oral tab 1 tab once daily for Hypertension [Active]; carbidopa-levodopa 25-100 mg Oral tab 3 times per day for Parkinsonism [Active]; dutasteride-tamsulosin 0.5-0.4 mg oral CM24 1 cap once daily [Active]; fexofenadine 180 mg Oral tab 1 tab once daily [Active]; melatonin 5 mg Oral cap nightly [Active]; hydrochlorothiazide 12.5 mg Oral cap 1 cap once daily [Active]; lamotrigine 100 mg oral tab 1 tab 2 times per day [Active]; memantine 28 mg Oral tab once daily [Active]; metoclopramide HCl 5 mg Oral tab 1 tab twice a day [Active]; Zofran (as hydrochloride) 4 mg Oral tab daily [Active]; pantoprazole 40 mg Oral TbEC 1 tab once daily [Active]; phenytoin sodium extended 100 mg oral cap 1 cap 4 times per day [Active]; Probiotic Oral daily [Active]; quetiapine 25 mg Oral tab 1 tab 3 times per day [Active]; Flomax 0.4 mg Oral cp24 1 cap once daily for Symptomatic Benign Prostatic Hyperplasia [Active]; trazodone 50 mg Oral tab nightly [Active]; Vesicare 10 mg Oral tab 1 tab once daily [Active]; vitamin B complex Oral tab daily [Active]; clonidine HCl 0.1 mg Oral tab every 8 hours [Active]; polyethylene glycol 3350 17 gram/dose oral powd 0.5 of powder twice a day [Active]; ondansetron HCl 4 mg Oral tab as needed [Active]; - PMHx: 05:03 10 BOWEL OBSTRUCTIONS ; "THEY DIDN'T HAVE TO OPERATE ON ANY OF THEM"; Atrial Fib; bowel lp1 incontinence; colon cancer; CVA; Dementia; Hypertension; Kidney stones; Pancreatitis; Parkinsons; prostatic hyperplasia; psoriasis; pulmonary fibrosis; UTI; VASCULAR DEMENTIA; - PSHx: 05:03 Unable to obtain; lp1 - Immunization history:: Adult Immunizations up to date. - Social history:: Smoking status: unknown. - Ebola Screening: : No symptoms or risks identified at this time No symptoms or risks identified at this time. Screenin:54 Abuse screen: Denies threats or abuse. Denies injuries from another. Nutritional mg2 screening: No deficits noted. Tuberculosis screening: No symptoms or risk factors identified. Fall Risk IV access (20 points). Assessment: 04:50 Reassessment: bipap started. mg2 04:52 General: Appears distressed, uncomfortable, Behavior is calm, cooperative. Neuro: Level mg2 of Consciousness is awake, alert, obeys commands, Oriented to person, place, time, situation. Cardiovascular: Reports shortness of breath, Capillary refill < 3 seconds Patient's skin is warm and dry. Rhythm is atrial fibrillation with rapid ventricular response. Respiratory: Airway is patent Respiratory effort is even, labored, Respiratory pattern is regular, symmetrical, tachypnea Breath sounds with crackles bilaterally. in right upper lobe, left upper lobe, right middle lobe, left lower lobe and right lower lobe Onset: The symptoms/episode began/occurred suddenly. GI: No signs and/or symptoms were reported involving the gastrointestinal system. : No signs and/or symptoms were reported regarding the genitourinary system. EENT: No signs and/or symptoms were reported regarding the EENT system. Derm: Skin is intact, Skin is pink, warm \\T\\ dry. normal. Musculoskeletal: Circulation, motion, and sensation intact. 04:52 Pain: Denies pain. mg2 Vital Signs: 04:45 BP 192 / 123; Pulse 123; Resp 40; Pulse Ox 94% on Nebulizer Mask; Pain 0/10; mg2 04:49 Temp 97.7; lp1 05:00 BP 152 / 100; Pulse 93; Resp 40; Pulse Ox 97% on BiPAP; Pain 0/10; mg2 05:22 BP 133 / 87; Pulse 83; Resp 32; Pulse Ox 97% on BiPAP; Pain 0/10; mg2 06:35 BP 156 / 115; Pulse 92; Resp 30; Pulse Ox 100% on BiPAP; Pain 0/10; mg2 07:02 BP 155 / 93; Pulse 93; Resp 28; Pulse Ox 100% on BiPAP; mg2 ED Course: 04:36 Patient arrived in ED. bb 04:37 Geovanny Srivastava MD is Attending Physician. gs 04:38 Initial lab(s) drawn, by me, sent to lab. Inserted saline lock: 22 gauge in right bb wrist, using aseptic technique. Blood collected. 04:38 EKG done, by ED staff, reviewed by Geovanny Srivastava MD. bb 04:40 Rakan Chacon RN is Primary Nurse. mg2 04:49 Triage completed. lp1 04:49 Arm band placed on left wrist. lp1 04:59 X-ray completed. Portable x-ray completed in exam room. Patient tolerated procedure kw well. 05:00 XRAY Chest (1 view) In Process Unspecified. EDMS 05:02 Patient has correct armband on for positive identification. Placed in gown. Bed in low mg2 position. Side rails up X2. compliance monitor on. Pulse ox on. NIBP on. Door closed. Warm blanket given. 06:25 She Schneider MD is Hospitalizing Provider. gs 06:34 Cleaned of incontinence. Linen changed. mg2 07:04 Report received from JEFF Cordoba. mg2 07:37 No provider procedures requiring assistance completed. Patient admitted, IV remains in hj place. intact. Administered Medications: 04:51 Drug: AtroVENT Aerosol 0.5 mg Route: Inhalation; mg2 04:51 Drug: Albuterol 2.5 mg Route: Inhalation; mg2 04:51 Drug: Lasix 40 mg Route: IVP; Site: right hand; mg2 06:33 Follow up: Response: No adverse reaction; Blood pressure is lowered mg2 04:51 Drug: Lopressor 5 mg Route: IVP; Site: right hand; mg2 06:34 Follow up: Response: No adverse reaction; Blood pressure is lowered mg2 Outcome: 06:26 Decision to Hospitalize by Provider. 07:37 Admitted to Tele accompanied by tech, room 410, with oxygen, with chart, Report called to JEFF Calderon 07:37 Condition: stable 07:37 Instructed on the need for admit, Demonstrated understanding of instructions. 07:54 Patient left the ED. Signatures: Dispatcher [employer] EDMS Osiris Thomas RN RN bb Whitley, Kimberlee kw Pena, Laura, RN RN lp1 Ceasar Casas RN RN Geoavnny Srivastava MD MD Rakan Chacon RN RN mg2 Corrections: (The following items were deleted from the chart) 04:39 04:38 EKG done, nadeem silver 04:50 04:46 Transition of care: patient was not received from another setting of care. lp1 lp1 05:02 04:40 Reassessment: bipap started. mg2 mg2 05:30 05:22 BP 133 / 87; Pulse 83bpm; Resp 24bpm; Pulse Ox 97% BiPAP; Pain 0/10; mg2 mg2 05:31 04:52 Respiratory: Airway is patent Respiratory effort is even, labored, Respiratory mg2 pattern is regular, symmetrical, tachypnea Onset: The symptoms/episode began/occurred suddenly, mg2 05:32 04:52 Cardiovascular: Reports shortness of breath, Rhythm is mg2 mg2
[2018-05-12 06:44] LABS: Arterial Blood Carboxyhemoglob 1.4 % (0-1.5); Blood Gas Oxyhemoglobin 95.3 % (94-97); Blood O2 Saturation 97.6 % (92-98.5)
[2018-05-12] MEDS ORDERED: ACETAMINOPHEN 500 MG TAB PO PRN (06:59)
[2018-05-12] MEDS ORDERED: ONDANSETRON 4 MG/2 ML VIAL IV PRN (06:59)
[2018-05-12] MEDS ORDERED: ALBUTEROL 2.5 MG/3 ML NEB SOL NEB PRN (07:00)
[2018-05-12] MEDS ORDERED: HYDRALAZINE HCL 25 MG TABLET PO PRN (07:02)
[2018-05-12 07:07] LABS: Urine Blood TRACE (NEG); Urine Glucose NEGATIVE (NEG); Urine Protein NEGATIVE (NEG); Urine Specific Gravity 1.015 (1.005-1.030)
[2018-05-12] MEDS: IPRATROPIUM BROM 0.5MG/2.5ML NEB SCH ×2 (07:26→13:23)
[2018-05-12 08:08] VITALS: O2SAT 100
[2018-05-12] MEDS ORDERED: NEBIVOLOL HCL 5 MG TAB PO SCH (09:00)
[2018-05-12] MEDS ORDERED: predniSONE 20 MG TAB PO SCH (09:00)
[2018-05-12] MEDS ORDERED: SOLIFENACIN SUCCIN 5 MG TAB PO SCH (09:00)
[2018-05-12] MEDS ORDERED: MEMANTINE HCL 10 MG TABLET PO SCH (09:00)
[2018-05-12] MEDS ORDERED: ENOXAPARIN 40 MG/0.4 ML SQ SCH (09:00)
[2018-05-12] MEDS ORDERED: ASPIRIN EC 325 MG TABLET PO SCH (09:00)
[2018-05-12] MEDS ORDERED: hydroCHLOROthiazide 12.5 MG CAP PO SCH (09:00)
[2018-05-12] MEDS ORDERED: TRAZODONE 50 MG TABLET PO SCH (09:00)
[2018-05-12] MEDS ORDERED: lamoTRIgine 100 MG TAB PO SCH (09:00)
[2018-05-12] MEDS: PHENYTOIN ER 100 MG CAP PO SCH ×3 (10:03→16:47)
--- NOTE | 2018-05-12 10:03 | RAD REPORT ---
EXAM DESCRIPTION: Shelley Single View05/12/2018 5:02 am CLINICAL HISTORY: Chest pain COMPARISON: April 30, 2018 FINDINGS: Mild improvement in the right lung alveolar opacities has occurred. No other change is no daryn IMPRESSION: Mild improvement in a right pneumonia
[2018-05-12] MEDS: BUSPIRONE HCL 5 MG TABLET PO SCH ×2 (10:05→13:33)
[2018-05-12] MEDS: QUETIAPINE 25 MG TAB PO SCH ×2 (10:07→13:34)
[2018-05-12] MEDS: CARBIDOPA/LEVODOPA 25/100 TAB PO SCH ×2 (10:08→13:34)
--- NOTE | 2018-05-12 12:31 | ECHO ---
HEIGHT: 5 ft 7 in WEIGHT: 153 lb oz DATE OF STUDY: 05/12/[address]: She Schneider MD 2-DIMENSIONAL: YES M.MODE: YES DOPPLER: YES COLOR FLOW: YES TDS: YES PORTABLE: NO DEFINITY: NO BUBBLE STUDY: NO DIAGNOSIS: PULMONARY HYPERTENSION CARDIAC HISTORY: CATHERIZATION: NO SURGERY: NO PROSTHETIC VALVE: NO PACEMAKER: NO MEASUREMENTS (cm) DIASTOLIC (NORMALS) SYSTOLIC (NORMALS) IVSd 1.1 (0.6-1.2) LA Diam 4.3 (1.9-4.0) LVEF 48% LVIDd 4.1 (3.5-5.7) LVIDs 3.1 (2.0-3.5) %FS 24% LVPWd 1.2 (0.6-1.2) Ao Diam 2.9 (2.0-3.7) 2 DIMENSIONAL ASSESSMENT: RIGHT ATRIUM: NORMAL LEFT ATRIUM: DILATED RIGHT VENTRICLE: NORMAL LEFT VENTRICLE: NORMAL SIZE TRICUSPID VALVE: NORMAL MITRAL VALVE: MITRAL ANNULAR CALCIFICATION PULMONIC VALVE: NORMAL AORTIC VALVE: SCLEROSIS PERICARDIAL EFFUSION: NONE AORTIC ROOT: NORMAL LEFT VENTRICULAR WALL MOTION: MILD GLOBAL HYPOKINESIS. DOPPLER/COLOR FLOW: MILD TRICUSPID REGURGITATION, MITRAL REGURGITATION. NORMAL RIGHT VENTRICULAR SYSTOLIC PRESSURE. COMMENTS: MILD MITRAL AND TRICUSPID REGURGITATION. NORMAL RIGHT VENTRICULAR SYSTOLIC PRESSURE. MILD GLOBAL HYPOKINESIS. MITRAL ANNULAR CALCIFICATION. AORTIC SCLEROSIS. HYPOKINESIS. TECHNOLOGIST: LOU ELIZALDE
--- NOTE | 2018-05-12 12:36 | P.CNS ---
Date of Consult: 05/12/18 Reason for Consult: Pneumonia Chief Complaint: Shortness of breath History of Present Illness: Patient is 87 years of age a pleasant man who was just recently discharged from the hospital with a diagnosis of pneumonia admitted again with the shortness of breath denies any cough sputum hemoptysis fever or chills according to the nurses he starts hyperventilating difficult to obtain a pulse ox at his baseline he lives in [facility], patient is able to ambulate or is been declining steadily he has a full-time caregiver patient has never smoked patient was discharged home on Augmentin and clindamycin also had some edema of his legs patient was also discharged home on prednisone Allergies No Known Drug Allergies Allergy (Verified 04/17/18 14:43) Unknown Home Medications: Aspirin [Aspirin EC 325 MG] 325 mg PO DAILY 04/29/18 Bacillus Coagulans/Inulin [Probiotic Formula Capsule] 1 cap PO DAILY 04/29/18 Buspirone HCl [Buspar*] 10 mg PO TID 04/29/18 Carbidopa/Levodopa [Carbidopa-Levodopa 25-100 Tab] 1 tab PO TID 04/29/18 Clindamycin HCl 300 mg PO Q8H 04/29/18 Clindamycin HCl [Cleocin HCl *] 150 mg PO Q8H 04/29/18 Dutasteride/Tamsulosin HCl [Dutasteride-Tamsulosin 0.5-0.4] 1 cap PO DAILY 04/29 Fexofenadine HCl [Charito Allergy] 180 mg PO BEDTIME PRN PRN 04/29/18 Gnp B-50 Complex 1 tab PO DAILY 04/29/18 Hydralazine HCl 25 mg PO QIDP PRN 04/29/18 Hydralazine HCl 50 mg PO QID 04/29/18 L.acidoph,Paracasei, B.lactis [Probiotic] 1 cap PO DAILY 04/29/18 Lamotrigine [Lamictal] 100 mg PO BID 04/29/18 Melatonin/Pyridoxine [Melatonin 5 mg Tablet] 5 mg PO BEDTIME 04/29/18 Memantine HCl [Namenda Xr] 28 mg PO DAILY 04/29/18 Metoclopramide HCl 5 mg PO BID 04/29/18 Nebivolol HCl [Bystolic*] 5 mg PO DAILY 04/29/18 Olmesartan Medoxomil [Benicar] 20 mg PO BEDTIME 04/29/18 Ondansetron [Ondansetron Odt] 4 mg PO DAILYPRN PRN 04/29/18 Pantoprazole Sodium [Protonix] 40 mg PO DAILY 04/29/18 Phenytoin Sodium Extended [Dilantin] 100 mg PO QID 04/29/18 Quetiapine Fumarate [Seroquel] 25 mg PO TID 04/29/18 Solifenacin Succinate [Vesicare] 10 mg PO DAILY 04/29/18 Tamsulosin [Flomax*] 0.4 mg PO BEDTIME 04/29/18 Trazodone [Desyrel*] 50 mg PO DAILY 04/29/18 Vitamin B Complex [Vitamin B Complex*] 1 cap PO DAILY 04/29/18 hydroCHLOROthiazide [Hydrochlorothiazide] 12.5 mg PO DAILY 04/29/18 Albuterol Neb [Proventil 0.083% Neb Soln] 2.5 mg IH Q6HP PRN #2 box 04/30/18 Amox/Clavulanate [Augmentin 875-125 Tab*] 1 each PO BID #14 tab 04/30/18 Nebulizer Accessories [Aeroneb Go] 1 each MC DAILY #1 each 04/30/18 Nebulizer Accessories [Mouthpiece] 1 each MC DAILY PRN #2 each 04/30/18 Nebulizer Accessories [Pillow Mask] 1 each MC DAILY #1 each 04/30/18 Nebulizer [Aeroneb Go Nebulizer] 1 each MC ONCE #1 each 04/30/18 Nebulizer and Compressor [Easy Air Compressor Nebulizer] 1 each MC DAILY #1 each 04/30/18 predniSONE [Prednisone*] 20 mg PO DAILY #5 tab 04/30/18 ALPRAZolam [Xanax] 0.25 mg PO BEDTIME PRN #30 tab 05/12/18 - Past Medical/Surgical History Diabetic: No -: History of CVA -: HTN -: History of Colon cancer with bowel obstructions. -: Neuropathy -: Vascular Dementia -: Gait instability -: High Fall risk -: Osteoarthritis -: AFIB -: Bowel Resection -: Cholecystectomy -: Tonsillectomy -: Hernia Repair -: R. Rotator Cuff Repair Psychosocial/ Personal History: Lives with son. Has care givers 13/06. Son has POA. - Family History Mother Medical History: Other (see notes) Notes: alzheimers - Social History Smoking Status: Unknown if ever smoked Alcohol use: Yes CD- Drugs: No Caffeine use: No Review of Systems 10-point ROS is otherwise unremarkable General: Weakness Respiratory: Cough, Shortness of Breath Cardiovascular: Edema Physical Examination Temp Pulse Resp BP Pulse Ox 95.2 F L 99 H 15 173/92 H 96 05/12/18 09:08 05/12/18 10:09 05/12/18 09:08 05/12/18 10:09 05/12/18 09:08 General: Alert, Oriented x3 HEENT: Atraumatic Neck: Supple Respiratory: Crackles/rales (Crackles bilaterally) Cardiovascular: No edema, Normal S1 S2 Gastrointestinal: Normal bowel sounds, Soft and benign Musculoskeletal: No clubbing, No contractures Laboratory Data (last 24 hrs) 05/12/18 04:30: PT 12.7 H, INR 1.08 05/12/18 04:30: WBC 9.4, Hgb 13.4 L, Hct 40.8, Plt Count 229 05/12/18 04:30: Sodium 138, Potassium 4.0, BUN 15, Creatinine 1.00, Glucose 189 H, Magnesium 2.1, Total Bilirubin 0.3, AST 24, ALT 16, Alkaline Phosphatase 146 H - Problems (1) Pneumonia Onset Date: 05/31/16 Current Visit: No Status: Acute Plan: Patient is 87 years of age admitted with acute onset of shortness of breath chest x-ray shows an infiltrate in the right upper lobe scar some interstitial changes patient's blood pressure is elevated patient's chemistries unremarkable normal white count he does have a history of sleep apnea uses CPAP at home and is on home oxygen the CPAP is not connected to oxygen patient's blood pressure is elevated mild global hypokinesis patient was recently admitted with a diagnosis of pneumonia and was discharged home on Augmentin and clindamycin I suggest adding some spironolactone 25 mg p.o. b.i.d. fluid restriction and discharged home on levofloxacin follow up with me in 4 weeks Dc prednisone patient has some improvement Qualifiers: Pneumonia type: due to unspecified organism
[2018-05-12] MEDS ORDERED: SPIRONOLACTONE 25 MG TABLET PO SCH (12:38)
[2018-05-12 12:39] VITALS: TEMP 97
[2018-05-12 13:59] LABS: Blood Gas Oxyhemoglobin 90.3 % (94-97); Blood O2 Saturation 92.5 % (92-98.5)
--- NOTE | 2018-05-12 15:29 | P.SSS ---
Patient History Date of Service: 05/12/18 Primary Care Provider: Dania Reason for admission: Shortness of breath History of Present Illness: Patient is 87 years of age a pleasant man with significant PMHX who was just recently discharged from the hospital with a diagnosis of pneumonia. Presented to the ED again with SOB. Denies any fever, chills, Nausea or vomitting. according to the nurses at [facility] he started hyperventilating after a shower and it was difficult to obtain a pulse ox for him at that time. He usually wears a CPAP at night and states he felt like it was closing in on him. Pt career development facilitator at bedside states that he was more like having a panic attack. At his baseline he lives in he [facility] home, patient is able to ambulate. 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 Never smoked. Patient was discharged home on Augmentin and clindamycin. Allergies No Known Drug Allergies Allergy (Verified 04/17/18 14:43) Unknown Home Medications: Aspirin [Aspirin EC 325 MG] 325 mg PO DAILY 04/29/18 Bacillus Coagulans/Inulin [Probiotic Formula Capsule] 1 cap PO DAILY 04/29/18 Buspirone HCl [Buspar*] 10 mg PO TID 04/29/18 Carbidopa/Levodopa [Carbidopa-Levodopa 25-100 Tab] 1 tab PO TID 04/29/18 Clindamycin HCl 300 mg PO Q8H 04/29/18 Clindamycin HCl [Cleocin HCl *] 150 mg PO Q8H 04/29/18 Dutasteride/Tamsulosin HCl [Dutasteride-Tamsulosin 0.5-0.4] 1 cap PO DAILY 04/29 Fexofenadine HCl [Charito Allergy] 180 mg PO BEDTIME PRN PRN 04/29/18 Gnp B-50 Complex 1 tab PO DAILY 04/29/18 Hydralazine HCl 25 mg PO QIDP PRN 04/29/18 Hydralazine HCl 50 mg PO QID 04/29/18 L.acidoph,Paracasei, B.lactis [Probiotic] 1 cap PO DAILY 04/29/18 Lamotrigine [Lamictal] 100 mg PO BID 04/29/18 Melatonin/Pyridoxine [Melatonin 5 mg Tablet] 5 mg PO BEDTIME 04/29/18 Memantine HCl [Namenda Xr] 28 mg PO DAILY 04/29/18 Metoclopramide HCl 5 mg PO BID 04/29/18 Nebivolol HCl [Bystolic*] 5 mg PO DAILY 04/29/18 Olmesartan Medoxomil [Benicar] 20 mg PO BEDTIME 04/29/18 Ondansetron [Ondansetron Odt] 4 mg PO DAILYPRN PRN 04/29/18 Pantoprazole Sodium [Protonix] 40 mg PO DAILY 04/29/18 Phenytoin Sodium Extended [Dilantin] 100 mg PO QID 04/29/18 Quetiapine Fumarate [Seroquel] 25 mg PO TID 04/29/18 Solifenacin Succinate [Vesicare] 10 mg PO DAILY 04/29/18 Tamsulosin [Flomax*] 0.4 mg PO BEDTIME 04/29/18 Trazodone [Desyrel*] 50 mg PO DAILY 04/29/18 Vitamin B Complex [Vitamin B Complex*] 1 cap PO DAILY 04/29/18 Albuterol Neb [Proventil 0.083% Neb Soln] 2.5 mg IH Q6HP PRN #2 box 04/30/18 Amox/Clavulanate [Augmentin 875-125 Tab*] 1 each PO BID #14 tab 04/30/18 Nebulizer Accessories [Aeroneb Go] 1 each MC DAILY #1 each 04/30/18 Nebulizer Accessories [Mouthpiece] 1 each MC DAILY PRN #2 each 04/30/18 Nebulizer Accessories [Pillow Mask] 1 each MC DAILY #1 each 04/30/18 Nebulizer [Aeroneb Go Nebulizer] 1 each MC ONCE #1 each 04/30/18 Nebulizer and Compressor [Easy Air Compressor Nebulizer] 1 each MC DAILY #1 each 04/30/18 predniSONE [Prednisone*] 20 mg PO DAILY #5 tab 04/30/18 ALPRAZolam [Xanax] 0.25 mg PO BEDTIME PRN #30 tab 05/12/18 Spironolactone [Aldactone*] 25 mg PO BID #60 tab 05/12/18 - Past Medical/Surgical History Diabetic: No -: History of CVA -: HTN -: History of Colon cancer with bowel obstructions. -: Neuropathy -: Vascular Dementia -: Gait instability -: High Fall risk -: Osteoarthritis -: AFIB -: Bowel Resection -: Cholecystectomy -: Tonsillectomy -: Hernia Repair -: R. Rotator Cuff Repair Psychosocial/ Personal History: Lives with son. Has care givers 13/06. Son has POA. - Family History Mother -: Other (see notes) Notes: alzheimers - Social History Alcohol use: Yes CD- Drugs: No Caffeine use: No Review of Systems General: As per HPI Physical Examination - Vital Signs Temperature: 97.0 F Blood Pressure: 164/87 Pulse: 103 Respirations: 20 Pulse Ox (%): 99 - Physical Exam General: Alert, In no apparent distress, Oriented x3, Cachectic HEENT: Atraumatic Neck: Supple, 2+ carotid pulse no bruit Respiratory: Clear to auscultation bilaterally, Normal air movement Cardiovascular: Regular rate/rhythm, Normal S1 S2 Gastrointestinal: Normal bowel sounds, No tenderness Musculoskeletal: No tenderness Integumentary: No rashes Neurological: Normal gait, Normal speech, Normal strength at 5/5 x4 extr, Normal tone, Normal affect Lymphatics: No axilla or inguinal lymphadenopathy - Studies Laboratory Data (last 24 hrs) 05/12/18 04:30: PT 12.7 H, INR 1.08 05/12/18 04:30: WBC 9.4, Hgb 13.4 L, Hct 40.8, Plt Count 229 05/12/18 04:30: Sodium 138, Potassium 4.0, BUN 15, Creatinine 1.00, Glucose 189 H, Magnesium 2.1, Total Bilirubin 0.3, AST 24, ALT 16, Alkaline Phosphatase 146 H - Diagnosis (Problem(s)) (1) SOB (shortness of breath) Current Visit: Yes Status: Acute Plan: Most Likely 2.2 to Anxiety at night time due to CPAP machine. -Xray of the chest with Improvement -Pulmonology consulted. Reccs DC home after room air saturation -Continue on Augmentin for PNA -Xanax PRN for Anxiety if okay with PCP at [facility] or increase Buspar (2) Labile hypertension Current Visit: No Status: Chronic (3) CHF (congestive heart failure) Onset Date: 09/30/16 Current Visit: No Status: Chronic Plan: EF of 48% here in the hospital -Spironolactone started here. Monitor K at the [facility] Qualifiers: Qualified Code(s): I50.32 - Chronic diastolic (congestive) heart failure (4) COPD (chronic obstructive pulmonary disease) Onset Date: 12/02/16 Current Visit: No Status: Chronic Qualifiers: COPD type: chronic bronchitis Chronic bronchitis type: unspecified Qualified Code(s): J42 - Unspecified chronic bronchitis (5) Chronic anemia Onset Date: 05/17/16 Current Visit: No Status: Chronic (6) Gait abnormality Current Visit: No Status: Chronic (7) HTN (hypertension) Onset Date: 05/17/16 Current Visit: No Status: Chronic Qualifiers: Hypertension type: essential hypertension Qualified Code(s): I10 - Essential (primary) hypertension (8) History of CVA (cerebrovascular accident) Current Visit: No Status: Chronic (9) Parkinsons disease Onset Date: 09/30/16 Current Visit: No Status: Chronic (10) Peripheral neuropathy Onset Date: 05/17/16 Current Visit: No Status: Chronic Qualifiers: 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 SOB most likley 2.2 to Anxiety. Discuss care with PCP already who agrees with the plan - Disposition Disposition: ROUTINE DISCHARGE Condition: GOOD Diet: Regular Activity: Ad justo
--- NOTE | 2018-05-12 16:05 | P.HP ---
Certification for Inpatient Patient admitted to: Inpatient With expected LOS: >2 Midnights Patient will require the following post-hospital care: None Practitioner: I am a practitioner with admitting privileges, knowledge of patient current condition, hospital course, and medical plan of care. Services: Services provided to patient in accordance with Admission requirements found in Title 42 Section 412.3 of the Code of Federal Regulations Patient History Date of Service: 05/12/18 Reason for admission: respiratory failure/ severe hypoxemia/ flash pulmonary edema History of Present Illness: Patient is an 87-year-old gentleman who has a longstanding history of numerous medical issues. Patient has dealt with colon cancer along with progressive dementia and diastolic heart failure. Patient has also had a pneumonia which he is slowly recovering from. He was discharged last week and he has had to be readmitted for worsening shortness of breath. On his last admission with the pneumonia he was hypotensive. A lot of his blood pressure medicines had been stopped. Concern was that once his pneumonia improved then patient would require additional antihypertensives. patient was discharged home with antibiotics and they had stopped a lot of his blood pressure medicine last time. However, on this admission patient comes in with significantly elevated blood pressure. It appears patient has developed flash pulmonary edema. Patient has not had an echo in over a year. At that time his ejection fraction was normal. This was not checked on his last admission with pneumonia. He will need to have this re-evaluated With another echocardiogram. I feel the patient develops an elevated blood pressure and flash pulmonary edema. As his cardiac function has probably worsened he is developing flash pulmonary edema even weaker. His cardiac status needs to be revaluated and his hypoxemia needs to be improved. Patient is elderly and very debilitated and this is a readmission unfortunately. At this time he will need further evaluation To readdress his blood pressure medicines and to assess what he needs to continue in what he can stop. Patient has a complicated medical history and will need to be evaluated for his respiratory failure. At this time he is requiring ventilation support with a BiPAP machine. We are going to try to wean this off today. He will need reassessment in the next 24- 48 hours. Allergies No Known Drug Allergies Allergy (Verified 04/17/18 14:43) Unknown Home Medications: Aspirin [Aspirin EC 325 MG] 325 mg PO DAILY 04/29/18 Bacillus Coagulans/Inulin [Probiotic Formula Capsule] 1 cap PO DAILY 04/29/18 Buspirone HCl [Buspar*] 10 mg PO TID 04/29/18 Carbidopa/Levodopa [Carbidopa-Levodopa 25-100 Tab] 1 tab PO TID 04/29/18 Clindamycin HCl 300 mg PO Q8H 04/29/18 Clindamycin HCl [Cleocin HCl *] 150 mg PO Q8H 04/29/18 Dutasteride/Tamsulosin HCl [Dutasteride-Tamsulosin 0.5-0.4] 1 cap PO DAILY 04/29 Fexofenadine HCl [Charito Allergy] 180 mg PO BEDTIME PRN PRN 04/29/18 Gnp B-50 Complex 1 tab PO DAILY 04/29/18 Hydralazine HCl 25 mg PO QIDP PRN 04/29/18 Hydralazine HCl 50 mg PO QID 04/29/18 L.acidoph,Paracasei, B.lactis [Probiotic] 1 cap PO DAILY 04/29/18 Lamotrigine [Lamictal] 100 mg PO BID 04/29/18 Melatonin/Pyridoxine [Melatonin 5 mg Tablet] 5 mg PO BEDTIME 04/29/18 Memantine HCl [Namenda Xr] 28 mg PO DAILY 04/29/18 Metoclopramide HCl 5 mg PO BID 04/29/18 Nebivolol HCl [Bystolic*] 5 mg PO DAILY 04/29/18 Olmesartan Medoxomil [Benicar] 20 mg PO BEDTIME 04/29/18 Ondansetron [Ondansetron Odt] 4 mg PO DAILYPRN PRN 04/29/18 Pantoprazole Sodium [Protonix] 40 mg PO DAILY 04/29/18 Phenytoin Sodium Extended [Dilantin] 100 mg PO QID 04/29/18 Quetiapine Fumarate [Seroquel] 25 mg PO TID 04/29/18 Solifenacin Succinate [Vesicare] 10 mg PO DAILY 04/29/18 Tamsulosin [Flomax*] 0.4 mg PO BEDTIME 04/29/18 Trazodone [Desyrel*] 50 mg PO DAILY 04/29/18 Vitamin B Complex [Vitamin B Complex*] 1 cap PO DAILY 04/29/18 Albuterol Neb [Proventil 0.083% Neb Soln] 2.5 mg IH Q6HP PRN #2 box 04/30/18 Amox/Clavulanate [Augmentin 875-125 Tab*] 1 each PO BID #14 tab 04/30/18 Nebulizer Accessories [Aeroneb Go] 1 each MC DAILY #1 each 04/30/18 Nebulizer Accessories [Mouthpiece] 1 each MC DAILY PRN #2 each 04/30/18 Nebulizer Accessories [Pillow Mask] 1 each MC DAILY #1 each 04/30/18 Nebulizer [Aeroneb Go Nebulizer] 1 each MC ONCE #1 each 04/30/18 Nebulizer and Compressor [Easy Air Compressor Nebulizer] 1 each MC DAILY #1 each 04/30/18 predniSONE [Prednisone*] 20 mg PO DAILY #5 tab 04/30/18 ALPRAZolam [Xanax] 0.25 mg PO BEDTIME PRN #30 tab 05/12/18 Spironolactone [Aldactone*] 25 mg PO BID #60 tab 05/12/18 - Past Medical/Surgical History Diabetic: No -: History of CVA -: HTN -: History of Colon cancer with bowel obstructions. -: Neuropathy -: Vascular Dementia -: Gait instability -: High Fall risk -: Osteoarthritis -: AFIB -: Bowel Resection -: Cholecystectomy -: Tonsillectomy -: Hernia Repair -: R. Rotator Cuff Repair Psychosocial/ Personal History: Lives with son. Has care givers 13/06. Son has POA. - Family History Mother Medical History: Other (see notes) Notes: alzheimers - Social History Alcohol use: Yes CD- Drugs: No Caffeine use: No Review of Systems 10-point ROS is otherwise unremarkable Physical Examination - Vital Signs Temperature: 97.0 F Blood Pressure: 164/87 Pulse: 103 Respirations: 20 Pulse Ox (%): 99 - Physical Exam General: Alert, In no apparent distress, Oriented x1, Severe distress HEENT: Atraumatic, PERRLA, Mucous membr. moist/pink, EOMI, Sclerae nonicteric Neck: Supple, 2+ carotid pulse no bruit, No LAD, Without JVD or thyroid abnormality Respiratory: Diminished, Crackles/rales, Expiratory wheezes Cardiovascular: Regular rate/rhythm, Normal S1 S2, Systolic murmur Gastrointestinal: Normal bowel sounds, Soft and benign, Non-distended, No tenderness Musculoskeletal: No clubbing, No tenderness, Swelling Integumentary: No rashes Neurological: Normal speech, Normal tone, Sensation intact, Cranial nerves 3-12 intact, Normal affect, Abnormal strength Lymphatics: No axilla or inguinal lymphadenopathy - Studies Laboratory Data (last 24 hrs) 05/12/18 04:30: PT 12.7 H, INR 1.08 05/12/18 04:30: WBC 9.4, Hgb 13.4 L, Hct 40.8, Plt Count 229 05/12/18 04:30: Sodium 138, Potassium 4.0, BUN 15, Creatinine 1.00, Glucose 189 H, Magnesium 2.1, Total Bilirubin 0.3, AST 24, ALT 16, Alkaline Phosphatase 146 H Assessment & Plan - Problems (Diagnosis) (1) Respiratory failure Current Visit: Yes Status: Acute (2) Flash pulmonary edema Current Visit: Yes Status: Acute (3) Acute combined systolic and diastolic heart failure Current Visit: Yes Status: Acute (4) New onset of congestive heart failure Current Visit: Yes Status: Acute (5) Malignant diastolic hypertension with CHF, NYHA class 3 Current Visit: Yes Status: Acute (6) SOB (shortness of breath) Current Visit: Yes Status: Acute (7) Pneumonia Onset Date: 05/31/16 Current Visit: No Status: Acute Qualifiers: Pneumonia type: due to unspecified organism (8) History of CVA (cerebrovascular accident) Current Visit: No Status: Chronic (9) Parkinsons disease Onset Date: 09/30/16 Current Visit: No Status: Chronic (10) Vascular dementia Onset Date: 02/03/17 Current Visit: No Status: Chronic Qualifiers: Dementia behavioral disturbance: without behavioral disturbance Qualified Code(s): F01.50 - Vascular dementia without behavioral disturbance - Plan 1. Echocardiogram to assess systolic function 2. Start patient on ARB 3. Resume Beta monica 4. Cardiology and pulmonary consultation 5. Aggressive diuresis 6. Strict I's and O's 7. Repeat CXR 8. Daily weights 9. Education regarding diet and treatment of congestive heart failure 10. Anxiolytics as needed; patient is already on numerous psychotropic medications so we need to be careful on prescribing additional psychiatric meds 11. monitor renal function closely 12. we need to reestablish blood pressure control prior to discharge as he risk going into flash pulmonary edema. He has severe hypoxemia which has improved with diuresing. However, he risk of developing hypoxemia again if his blood pressure is not controlled as he has a propensity for flash pulmonary edema. He needs to have his cardiac status revaluated appropriately. Echo is pending Discharge Plan: Home Plan to discharge in: Greater than 2 days - Advance Directives Does patient have a Living Will: Yes Does patient have a Durable POA for Healthcare: Yes - Code Status/Comfort Care Code Status Assessed: No Code Status: Do Not Resuscitate Critical Care: No Time Spent Managing PTS Care (In Minutes): 55
[2018-05-12 16:11] VITALS: BP 164/87
[2018-05-12 16:31] VITALS: BMI 25.2
--- NOTE | 2018-05-12 17:32 | EKG ---
Test Date: 2018-05-12 Test Time: 04:34:29 Marine Firer: MG MEASUREMENT RESULTS: Intervals: Rate: 119 MD: QRSD: 112 QT: 360 QTc: 506 [place]: P: MD: QRS: 49 T: 83 INTERPRETIVE STATEMENTS: Atrial fib with rvr Nonspecific ST abnormality Abnormal ECG Compared to ECG 04/28/2018 21:11:26 ST (T wave) deviation now present Electronically Signed On 05-12-18 17:31:34 CDT by Vicente Guzman
[2018-05-12] MEDS ORDERED: TAMSULOSIN 0.4 MG SR CAP PO SCH (21:00)
== END 2018-05-12 17:04 ==
LOC: ER 04:27 → ERHOLD 06:31 → INTOOBSV 06:31 → 4TH 07:40
PROVIDERS: ADMIT Hospitalist; ATTEND Hospitalist
DX: R06.02 Shortness of breath (principal); J44.0 Chronic obstructive pulmonary disease with (acute) lower respiratory infection; J18.9 Pneumonia, unspecified organism; I11.0 Hypertensive heart disease with heart failure; I50.32 Chronic diastolic (congestive) heart failure; Z85.038 Personal history of other malignant neoplasm of large intestine; Z86.73 Personal history of transient ischemic attack (TIA), and cerebral infarction without residual deficits; I48.91 Unspecified atrial fibrillation; R26.9 Unspecified abnormalities of gait and mobility; G20 Parkinson's disease; F01.50 Vascular dementia, unspecified severity, without behavioral disturbance, psychotic disturbance, mood disturbance, and anxiety; G62.9 Polyneuropathy, unspecified
CPT/HCPCS: 36415; 71045; 80048; 80076; 81003; 82805; 83735; 84484; 85025; 85610; 87040; 93005; 93306; 94640; 94660; 96374; 96375; 99285; G0378; J1650; J7512

== ENCOUNTER 2018-08-11 16:24 | Inpatient (IN) | payer OTHER ==
--- OUTSIDE RECORDS SUMMARY | 2018-08-11 16:27 | XMS REPORT | Clinical Summary ---
:1930 Author Organization [facility] Address [address] [place] [address] Care Team Providers Name Role Phone Ana [...] INFLUENZA VACCINE 06/21/2018 Results Not on fileafter 08/10/2017 Insurance Payer Benefit Plan / Group Subscriber ID Type Phone Address FOR LIFE xxxxxxxxx MEDICARE MEDICARE PART A AND B xxxxxxxxxx Medicare [place], [place] AETNA MEDICARE AETNA MEDICARE HMO/PPO [facility] xxxxxxxxx HMO [phone] [place] [id number]
--- OUTSIDE RECORDS SUMMARY | 2018-08-11 16:39 | XMS REPORT | Continuity of Care Document ---
:1930 Author Organization Interface Problems Problem Status Onset Classification Date Comments Source Date Reported CHEST PAIN Active 01/07/[address] SOB Active 01/07/20 [place] [address] Medical [place] PULMONARY Active 11/05/20 [facility] FIBROSIS 16 [facility] Center PERSISTENT Active 10/04/20 [facility] NAUSEA AND 16 Medical VOMITING Center OTHER Active 10/04/20 [place] [address] [facility] Center F/U Active 03/03/20 [facility] 16 NEURO 1 YR F/U Active 02/19/20 [facility] 16 INTRACTABLE N/V Active 08/19/20 [place] [address] [facility] Center Discharge 08/17/20 08/20/2015 [facility] Diagnosis: 15 Medical Acute UTI Center N/V Active 08/17/20 [place] [address] Medical Center VOMITTING,AMEYA Active 08/02/20 [place] [address] [facility] Center VOMITTING Active 08/02/20 [place] [address] [facility] Center F/U Active 04/21/20 [facility] 15 SLEEP APNEA F/U Active 04/15/20 [facility] 15 SLEEP APNEA F/U Active 04/04/20 [facility] 15 MELECIO Active 12/10/19 [facility] 15 FOLLOW UP Active 11/26/[address] [facility] VOMITING Active 11/13/[address] Center GI CONSULT Active 10/30/[address] LOUD SNORING Active 10/23/20 [facility] 14 SMALL BOWEL Active 12/06/19 [facility] OBSTRUCTION [address] [place] [address] SBO Active 12/29/[address] FU Active 08/03/20 [facility] 12 786.7 Active 04/19/[address] CPAP/BPAP Active 01/25/20 [facility] 12 SLEEP APNEA Active 01/12/20 [facility] 12 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 [facility] nares(<span 11 [place] ID="[id number]" Imaging, >Stable</span>) [facility] [place] 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/[address], [facility] [place], [facility] 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 [facility],[address] CVA (<span Resolved 11/21/19 Problem 04/28/2018 [facility] ID="[id number] 11 [place] ">Confirmed</sp Imaging, an>) [facility], [facility] CVA (<span Resolved 11/21/19 Problem 08/20/2015 [facility], ID="[id number] 11 [place] ">Confirmed</sp Medical an>) [place] CVA (<span Resolved 11/21/19 Problem 01/17/2014 [place] ID="[id number] 11 [facility] ">Confirmed</sp Center an>) CVA (<span Resolved 11/21/19 Problem 08/25/2015 [place] ID="[id number] 11 [facility] ">Confirmed</sp Center an>) Dementia, Active 11/21/19 Problem 04/28/2018 [facility] vascular 09 [place] [facility], [facility] Dementia, Active 11/21/19 Problem 08/25/2015 [facility], vascular [address] [place] [address] Dementia, Resolved 11/21/19 Problem 01/17/2014 [facility] vascular [address] [place] [address] TIA (<span Resolved 11/21/18 Problem 04/28/2018 [facility] ID="[id number] 94 [place] ">Confirmed</sp Imaging, an>) [facility] TIA (<span Resolved 11/21/18 Problem 08/20/2015 [facility], ID="[id number] 94 [place] ">Confirmed</sp Medical an>) [place] TIA (<span Resolved 11/21/18 Problem 08/25/2015 [place] ID="[id number] 94 Medical ">Confirmed</sp Center an>) AF (<span Resolved Problem 04/28/2018 [facility] ID="[id number] [place] ">Confirmed</sp Imaging, an>) [facility], [facility] [place] Bowel Resolved Problem 04/28/2018 [facility] obstruction [place] [facility], [facility] BPH Active Problem 04/28/2018 OPID [place] [facility], [facility], [facility] [place] Cancer of colon Resolved Problem 04/28/2018 OPID [place] [facility], [facility], [facility] [place] Dysphagia Resolved Problem 04/28/2018 OPID [place] [facility], [facility], [facility] [place] HTN - Active Problem 04/28/2018 [facility] Hypertension [place] [facility], [facility], [facility] [place] Hyponatremia Resolved Problem 04/28/2018 OPID [place] [facility], [facility], [facility] [place] Impaired Active Problem 04/28/2018 [facility] physical [place] mobility (<span Imaging, ID="[id number]" [facility], >Confirmed</spa [place] n) [facility], [facility] [place] 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 OPID [place] [facility], [facility] MELECIO - Active Problem 04/28/2018 [facility] Obstructive [place] sleep apnea Imaging, [facility], [facility] [place] Psoriasis Resolved Problem 04/28/2018 OPID [place] [facility], [facility], [facility] [place] Retention of Active Problem 04/28/2018 needs OP[facility] urine<sup>1</balderas straight [place] p> cath every 6 Imaging, hrs or as [facility], needed if [place] bladder is Medical distended [place], [facility] [place] Seizures Resolved Problem 04/28/2018 [facility] complicating [place] intracranial Imaging, hemorrhage [facility], [facility] [place] Shingles Resolved Problem 04/28/2018 OPID [place] [facility], [facility] Skin at risk of Resolved Problem 04/28/2018 [facility] breakdown(<span [place] ID="[id number]" Imaging, >Improving</spa [facility], n>) [facility], [facility] [place] Stroke Active Problem 04/28/2018 OPID [place] [facility], [facility], [facility] [place] BPH Active Problem 01/04/2013 [facility], RAKAN Cardenas, [facility] Chronic pain Active Problem 01/04/2013 [facility], RAKAN [place], [facility] Impaired Active Problem 01/04/2013 [facility] physical Medical mobility Center, OPIJose Cardenas, [facility] Retention of Active Problem 01/04/2013 1needs [facility] urine<sup>1</balderas straight Medical p> cath every 6 Center, hrs or as [facility] needed if [place] bladder is [facility] distended Skin at risk of Active Problem 05/03/2012 [facility], RAKAN [place], [facility] Stroke Active Problem 01/04/2013 [facility], RAKAN [place], [facility] CHF - Resolved Problem 01/03/2014 [facility] Congestive heart failure Chronic pain Resolved Problem 01/03/2014 [facility] Headache Active Problem 01/03/2014 [facility] Impaired Active Problem 01/03/2014 [facility] physical mobility Cancer of colon Resolved Problem 12/09/2012 [facility], [facility] [place] CHF - Resolved Problem 12/09/2012 [facility], Congestive [facility] heart failure [place] Dysphagia Resolved Problem 12/09/2012 [facility], [facility] [place] Headache Active Problem 12/09/2012 [facility], [facility] [place] HTN - Active Problem 12/09/2012 [facility], Hypertension [facility] [place] MELECIO - Active Problem 12/09/2012 [facility], Obstructive [facility] sleep apnea [place] Psoriasis Resolved Problem 12/09/2012 [facility], [facility] [place] Seizures Resolved Problem 12/09/2012 [facility], complicating [facility] intracranial [place] hemorrhage Skin at risk of Resolved Problem 12/09/2012 [facility], breakdown [facility] [place] Cancer of colon Resolved Problem 01/04/2013 [facility] CHF - Resolved Problem 01/04/2013 [facility], Congestive [place] heart failure [facility] Center Dysphagia Resolved Problem 01/04/2013 [facility] Headache Active Problem 01/04/2013 [facility] HTN - Active Problem 01/04/2013 [facility], Hypertension [facility] MELECIO - Active Problem 01/04/2013 [facility], Obstructive [place] sleep apnea [facility] Psoriasis Resolved Problem 01/04/2013 [facility] Seizures Resolved Problem 01/04/2013 [facility], complicating [place] intracranial Medical hemorrhage Center Skin at risk of Resolved Problem 01/04/2013 [facility], breakdown [facility] Skin at risk of Resolved Problem 01/17/2014 [facility], breakdown [facility] SLEEP APNEA NOS Active [facility] SHORTNESS OF Active [facility] BREATH [facility] FOLLOW-UP EXAM Active [facility] NOS OBSTRUCTIVE Active [facility] SLEEP APNEA INTESTINAL Active [facility] OBSTRUCT NOS Medical [place] FACIAL WEAKNESS Active [facility] ROUTINE MEDICAL Active [facility] EXAM Medical [place] VOMITING ALONE Active [facility] NAUSEA WITH Active [facility] VOMITING [facility] SLEEP APNEA, Active [facility] UNSPECIFIED NAUSEA Active [facility] PULMONARY Active [facility] SHORTNESS OF Active [facility] BREATH [facility] OBSTRUCTIVE Active [facility] SLEEP APNEA (ADULT) (PEDIATR Medications Medication Details Route Status Patient Ordering Order Source Instructions Provider Date 24 HR Rotigotine 1 patch, TOP, Active 03/08[facility] 0.0417 MG/HR Daily, # 30 2017 Transdermal Patch patch, 0 [Neupro] Refill(s) Hydralazine 75 mg, PO, Active 03/08[facility] QID, 0 2016 Refill(s) modafinil 100 mg oral 100 mg=1 tab, Active 03/08[facility] tablet PO, QAM, 0 2016 Refill(s) Buspar 1omg, PO, Active 03/08[facility] TID, 0 2016 Refill(s) Carbidopa 10 MG / 1 tab, PO, Active 03/08[facility] Levodopa 100 MG Oral TID, 0 2016 Tablet Refill(s) amLODIPine 5 mg oral 5 mg=1 tab, Active 03/08[facility] tablet PO, Daily, 0 2016 Refill(s) Carbidopa 25 MG / 1 tab, PO, Active 10/08[facility] Levodopa 250 MG Oral TID, 0 2015 Medical Tablet [Sinemet Refill(s) [place] 25-250] Levofloxacin 750 MG 750 mg=1 tab, Active 10/08[facility] Oral Tablet PO, Daily, X 2016 Medical [Levaquin] 5 day, # 5 Center tab, 0 Refill(s) Mirtazapine 7.5 mg, 1 No Longer [facility] tab, Route: Active 2016 Medical PO, Drug Center form: TAB, Bedtime, Dosing Weight 66.636, kg, Start date: 10/06/16 21:00:00 RECTIFYING OPERATOR, Duration: 30 day, Stop date: 11/04/16 21:00:00 CSTNotes: (Same as:Remeron) Proscar 5 mg, 1 tab, No Longer [place] Route: PO, Active 2015 Medical Drug form: [place] TAB, Daily, Start date: 10/06/16 10:00:00 RECTIFYING OPERATOR, Duration: 30 day, Stop date: 11/05/16 9:00:00 CSTNotes: (Same as: Proscar) "Do Not Crush" Women of childbearing age should not touch or handle broken tablets Docusate 100 mg, 10 No Longer [place] mL, Route: Active 2015 Medical PO, Drug Center form: LIQ, BID, Dosing Weight 66.636, kg, Start date: 10/06/16 9:00:00 RECTIFYING OPERATOR, Stop date: 11/04/16 17:00:00 CSTNotes: (Same as: Colace) Miralax 17 gm, 1 pkt, No Longer [place] Route: PO, 2015 Medical Drug form: [place] PWDR, BID, Dosing Weight 66.636, kg, Start date: 10/06/16 9:00:00 RECTIFYING OPERATOR, Duration: 30 day, Stop date: 11/04/16 17:00:00 CSTNotes: Dissolve in 8 oz of water or juice. (Same as: Miralax) Zofran 4 mg, 1 tab, No Longer [place] Route: PO, Active 2015 Medical Drug form: [facility], QAM, Dosing Weight 66.636, kg, PRN Nausea, Start date: 10/06/16 7:35:00 RECTIFYING OPERATOR, Duration: 30 day, Stop date: 11/05/16 7:34:00 CSTNotes: (Same as: Zofran) Miralax 17 gm, 1 pkt, No Longer [place] Route: PO, Active 2015 Medical Drug form: [place] PWDR, QPM, Dosing Weight 66.636, kg, Start date: 10/05/16 17:00:00 RECTIFYING OPERATOR, Duration: 30 day, Stop date: 11/03/16 17:00:00 CSTNotes: Dissolve in 8 oz of water or juice. (Same as: Miralax) molasses 240 mL, Inactive Route: VA, 2015 Medical Drug Form: [place] SYRP, Dosing Weight 66.636, kg, ONCE, Milk of Molasses Enema, Start date: 10/05/16 13:20:00 RECTIFYING OPERATOR, Duration: 1 doses or times, Stop date: 10/05/16 13:20:00 CSTNotes: (Same as:Molasses) Menthol 0.0044 MG/MG 1 appl, No Longer [place] / Zinc Oxide 0.2 Route: TOP, Active 2016 Medical MG/MG Topical TID, Drug [place] Ointment form: OINT, [Calmoseptine PRN Diaper Ointment] Rash, Start date: 10/05/16 9:32:00 RECTIFYING OPERATOR, Duration: 30 day, Stop date: 11/04/16 9:31:00 RECTIFYING OPERATOR, DosingNotes: (Same as: Calmoseptine) Culturelle HS 1 cap, Route: No Longer [place] PO, Drug Active [facility] 66.636, kg, Daily, Start date: 10/05/16 9:00:00 RECTIFYING OPERATOR, Duration: 30 day, Stop date: 11/03/16 9:00:00 CSTNotes: Same as Culturelle Benicar 20 mg, 1 tab, No Longer [place] Route: PO, Active 2015 Medical Drug form: [place] TAB, Daily, Dosing Weight 66.636, kg, Start date: 10/05/16 9:00:00 RECTIFYING OPERATOR, Duration: 30 day, Stop date: 11/03/16 9:00:00 RECTIFYING OPERATOR Centrum Men's 1 tab, Route: No Longer [place] PO, Drug Active 2015 Medical Form: TAB, [place] Dosing Weight 66.636, kg, Daily, Start date: 10/05/16 9:00:00 RECTIFYING OPERATOR, Duration: 30 day, Stop date: 11/03/16 9:00:00 CSTNotes: (Same as:Thera-M, Theragran-M) WASTE: F/P - Black; E - Municipal Trash Bin Give with food. Vitamin B 12 1,000 No Longer [place] microgram, 1 Active 2015 Medical tab, Route: [place] PO, Drug form: TAB, Daily, Dosing Weight 66.636, kg, Start date: 10/05/16 9:00:00 RECTIFYING OPERATOR, Duration: 30 day, Stop date: 11/03/16 9:00:00 CSTNotes: (Same As: Vitamin B-12) Detrol LA 4 mg, 1 cap, No Longer Route: PO, Active 2015 Medical Drug form: [place] CAP, Daily, Start date: 10/05/16 9:00:00 RECTIFYING OPERATOR, Duration: 30 day, Stop date: 11/03/16 9:00:00 CSTNotes: Do Not Crush. (Same As: Detrol LA) Bystolic 5 mg, 1 tab, No Longer [place] Route: PO, Active 2015 Medical Drug form: [place] TAB, Daily, Dosing Weight 66.636, kg, Start date: 10/05/16 9:00:00 RECTIFYING OPERATOR, Duration: 30 day, Stop date: 11/03/16 9:00:00 CSTNotes: (same as: Bystolic) Finasteride 0.5 mg, 0.1 No Longer [place] tab, Route: Active 2015 Medical PO, Drug Center form: TAB, Daily, Dosing Weight 66.636, kg, Start date: 10/05/16 9:00:00 RECTIFYING OPERATOR, Duration: 30 day, Stop date: 11/03/16 9:00:00 CSTNotes: (Same as: Proscar) "Do Not Crush" Women of childbearing age should not touch or handle broken tablets Zofran 4 mg, 1 tab, No Longer [place] Route: PO, Active 2015 Medical Drug form: [place] TAB, QAM, Dosing Weight 66.636, kg, Start date: 10/05/16 9:00:00 RECTIFYING OPERATOR, Duration: 30 day, Stop date: 11/03/16 9:00:00 CSTNotes: (Same as: Zofran) VESICARE 10 mg, Route: No Longer [place] PO, Drug Active 2015 Medical form: TAB, Center Daily, Dosing Weight 66.636, kg, Start date: 10/05/16 9:00:00 RECTIFYING OPERATOR, Duration: 30 day, Stop date: 11/03/16 9:00:00 RECTIFYING OPERATOR Hydrochlorothiazide 12.5 mg, 1 No Longer [place] cap, Route: Active 2015 Medical PO, Drug Center form: CAP, Daily, Dosing Weight 66.636, kg, Start date: 10/05/16 9:00:00 RECTIFYING OPERATOR, Duration: 30 day, Stop date: 11/03/16 9:00:00 CSTNotes: (Same as: Microzide) With food. Aspirin 325 MG Oral 325 mg, 1 No Longer [place] Tablet tab, Route: Active 2015 Medical PO, Drug Center form: TAB, Daily, Dosing Weight 66.636, kg, Start date: 10/05/16 9:00:00 RECTIFYING OPERATOR, Duration: 30 day, Stop date: 11/03/16 9:00:00 CSTNotes: Take with food. pantoprazole 40 mg, 1 tab, No Longer [place] Route: PO, Active 2015 Medical Drug form: Center ECTAB, Before Breakfast, Dosing Weight 66.636, kg, Start date: 10/05/16 7:30:00 RECTIFYING OPERATOR, Duration: 30 day, Stop date: 11/03/16 7:30:00 CSTNotes: Tablet should not be chewed or crushed. (Same as: Protonix) heparin 5,000 unit, 1 No Longer [facility] mL, Route: Active 2015 Medical SUB-Q, Drug Center form: INJ, Q8H, Dosing Weight 66.636, kg, Start date: 10/05/16 0:00:00 RECTIFYING OPERATOR, Duration: 30 day, Stop date: 11/03/16 16:00:00 CSTNotes: porcine heparin gabapentin 300 MG 300 mg, 1 No Longer [facility] Oral Capsule cap, Route: Active 2015 Medical [Neurontin] PO, Drug Center form: CAP, Bedtime, Dosing Weight 66.636, kg, Start date: 10/04/16 21:00:00 RECTIFYING OPERATOR, Duration: 30 day, Stop date: 11/02/16 21:00:00 CSTNotes: (Same as: Neurontin) Mirtazapine 7.5 mg, 1 No Longer [facility] tab, Route: Active 2016 Medical PO, Drug Center form: TAB, Bedtime, Dosing Weight 66.636, kg, Start date: 10/04/16 21:00:00 RECTIFYING OPERATOR, Duration: 30 day, Stop date: 11/02/16 21:00:00 CSTNotes: (Same as:Remeron) Flomax 0.4 mg, 1 No Longer [facility] cap, Route: Active 2015 Medical PO, Drug Center form: CAP, Bedtime, Dosing Weight 66.636, kg, Start date: 10/04/16 21:00:00 RECTIFYING OPERATOR, Duration: 30 day, Stop date: 11/02/16 21:00:00 CSTNotes: (Same As: Flomax) "Do Not Crush" Phenytoin 400 mg, 4 No Longer [facility] cap, Route: Active 2015 Medical PO, Drug Center form: ERCAP, Bedtime, Dosing Weight 66.636, kg, Start date: 10/04/16 21:00:00 RECTIFYING OPERATOR, Duration: 30 day, Stop date: 11/02/16 21:00:00 CSTNotes: (Same as: Dilantin) Do not open, crush, or chew. Metoclopramide 10 MG 10 mg, 1 tab, No Longer [facility] Oral Tablet Route: PO, Active 2015 Medical Drug form: Center TAB, QID-Before Meals, Dosing Weight 66.636, kg, Start date: 10/04/16 21:00:00 RECTIFYING OPERATOR, Duration: 30 day, Stop date: 11/03/16 16:30:00 CSTNotes: (Same as: Reglan) Take 30 min before meals Carbidopa 25 MG / 1 tab, Route: No Longer [facility] Levodopa 250 MG Oral PO, Drug Active 2016 Medical Tablet [Sinemet Form: TAB, Center 25-250] Dosing Weight 66.636, kg, TID, NOW, Start date: 10/04/16 20:43:00 RECTIFYING OPERATOR, Stop date: 11/03/16 17:00:00 CSTNotes: Take with milk or food. (Same As: Sinemet) Lamictal 100 mg, 1 No Longer [facility] tab, Route: Active 2015 Medical PO, Drug Center form: TAB, BID, Dosing Weight 66.636, kg, Priority: NOW, Start date: 10/04/16 20:43:00 RECTIFYING OPERATOR, Duration: 30 day, Stop date: 11/03/16 17:00:00 CSTNotes: (Same as:LaMICtal) Buspar 10 mg, 2 tab, No Longer [place] Route: PO, Active 2015 Medical Drug form: [place] TAB, BID, Dosing Weight 66.636, kg, Priority: NOW, Start date: 10/04/16 20:42:00 RECTIFYING OPERATOR, Stop date: 11/03/16 17:00:00 CSTNotes: (Same As: BuSpar) Cetirizine 10 mg, 1 tab, No Longer [facility] Route: PO, Active 2015 Medical Drug form: [place] TAB, Daily, Dosing Weight 66.636, kg, Start date: 10/04/16 19:00:00 RECTIFYING OPERATOR, Duration: 30 day, Stop date: 11/03/16 9:00:00 CSTNotes: (Same As: Zyrtec) Rocephin 1 gm, Route: No Longer [facility] IVPB, Drug Active 2015 Medical form: [place] PDR/INJ, [id number], Dosing Weight 66.636, kg, Start date: 10/04/16 18:00:00 RECTIFYING OPERATOR, Duration: 30 day, Stop date: 11/02/16 18:00:00 CSTNotes: (Same As: Rocephin). Use with 100 mL NS and infuse over 30 min MEDICATION WASTE Product Size: 1000 mg Product Wasted: ___ mg Zithromax 250 mg, 1 No Longer [place] tab, Route: Active 2015 Medical PO, Drug Center form: TAB, [id number], Dosing Weight 66.636, kg, Priority: NOW, Start date: 10/04/16 17:48:00 RECTIFYING OPERATOR, Stop date: 11/02/16 17:48:00 CSTNotes: Take 1 hour before or 2 hours after meals. (Same As: Zithromax) Flonase 0.05 mg/inh 1 spray, No Longer [place] nasal spray Route: NASAL, Active 2015 Medical Drug Form: [place] SPRY, Dosing Weight 66.636, kg, Daily, NOW, Start date: 10/04/16 17:46:00 RECTIFYING OPERATOR, Stop date: 11/03/16 17:46:00 CSTNotes: (Same as: Flonase) Charito 60 mg, Route: Inactive [place] PO, Daily, 2015 Medical Dosing Weight Center 66.636, kg, Priority: NOW, Start date: 10/04/16 17:44:00 RECTIFYING OPERATOR, Stop date: 11/03/16 17:44:00 RECTIFYING OPERATOR Docusate Sodium 100 100 mg, 1 No Longer [facility] Oral Capsule cap, Route: Active 2015 Medical [Colace] PO, Drug Center form: CAP, BID, Dosing Weight 66.636, kg, PRN Constipation, Start date: 10/04/16 17:11:00 RECTIFYING OPERATOR, Duration: 30 day, Stop date: 11/03/16 17:10:00 CSTNotes: (Same as: Colace) (Do Not Crush) Melatonin 3 mg, 1 tab, No Longer [place] Route: PO, Active 2015 Medical Drug form: [place] TAB, Bedtime, Dosing Weight 66.636, kg, PRN Insomnia, Start date: 10/04/16 17:08:00 RECTIFYING OPERATOR, Duration: 30 day, Stop date: 11/03/16 17:07:00 CSTNotes: (Same as: Melatonin) 24 HR Nifedipine 90 90 mg, 1 tab, No Longer [facility] Extended Release Route: PO, Active 2015 Medical Tablet Drug form: [place] ERTAB, Lunch, Dosing Weight 66.636, kg, Priority: NOW, Start date: 10/04/16 17:06:00 RECTIFYING OPERATOR, Duration: 30 day, Stop date: 11/03/16 12:00:00 CSTNotes: (Same as:Adalat CC, Procardia XL) Give on empty stomach. Take 1 hour before or 2 hours after meal; "Avoid grapefruit and grapefruit juice". Do not crush Carbidopa 25 MG / 2 tab, PO, No Longer [place] Levodopa 250 MG Oral TID, 0 Active 2015 Medical Tablet [Sinemet Refill(s) Center 25-250] Ondansetron 4 MG Oral 4 mg=1 tab, Active [place] Tablet [Zofran] PO, QAM, 6AM, 2016 Medical 0 Refill(s) Center metoclopramide 10 mg 10 mg=1 tab, Active [place] oral tablet, PO, 2015 Medical disintegrating QID-Before Center Meals, 0 Refill(s) Hydralazine 50 mg=1 tab, No Longer [place] Hydrochloride 50 MG PO, QID, # Active 2015 Medical Oral Tablet 360 tab, 0 Center Refill(s) Lactated Ringers 1,000 mL, No Longer [place] 1,000 mL Rate: 75 Active 2015 Medical ml/hr, Infuse Center over: 13.3 hr, Route: IV, Dosing Weight 66.636 kg, Total Volume: 1,000, Start date: 10/04/16 15:09:00 RECTIFYING OPERATOR, Duration: 30 day, Stop date: 11/03/16 15:08:00 RECTIFYING OPERATOR Zofran 4 mg, 2 mL, No Longer [place] Route: IVP, Active 2015 Medical Drug form: Center INJ, Q8H, Dosing Weight 66.818, kg, PRN Nausea, Priority: NOW, Start date: 10/04/16 11:59:00 RECTIFYING OPERATOR, Duration: 30 day, Stop date: 11/03/16 11:58:00 CSTNotes: (Same as: Zofran) MEDICATION WASTE Product Size: 4 mg Product Wasted: ___ mg Sodium Chloride 0.154 500 mL, 500 Inactive [place] MEQ/ML Injectable ml/hr, Infuse 2015 Medical Solution Over: 1 hr, Center Route: IV, 500, Drug form: INJ, ONCE, Priority: STAT, Dosing Weight 66.818 kg, Start date: 10/04/16 11:07:00 RECTIFYING OPERATOR, Duration: 1 doses or times, Stop date: 10/04/16 11:07:00 RECTIFYING OPERATOR Saline Flush 0.9% 10 mL, Route: No Longer [place] MISC, Drug Active 2015 Medical Form: INJ, Center Dosing Weight 66.818, kg, PRN, PRN Line Flush, Start date: 10/04/16 8:25:00 RECTIFYING OPERATOR, Duration: 30 day, Stop date: 11/03/16 8:24:00 CSTNotes: (Same as: BD Posiflush) Flonase 0.05 mg/inh 1 spray, Active [facility] nasal spray NASAL, Daily, 2016 0 Refill(s) Charito =1 tab, PO, Active [facility] Daily, 0 2015 Refill(s) pantoprazole 40 mg 40 mg=1 tab, Active [facility] oral enteric coated PO, Before 2014 Medical tablet Breakfast, # Center 30 tab, 0 Refill(s) Ciprofloxacin 500 MG 500 mg=1 tab, Active [facility] Oral Tablet [Cipro] PO, Q12H, end 2014 Medical date 08/28, X Center 7 day, # 14 tab, 0 Refill(s)Spec ial Instructions: end date 08/28 Ondansetron 4 MG Oral 4 mg=1 tab, Active [facility] Tablet [Zofran] PO, Q6H, PRN 2015 Medical as needed for Center nausea/vomiti ng, take 15-30 mins before meals especially lunch for nausea, X 7 day, # 28 tab, 0 Refill(s)Spec ial Instructions: take 15-30 mins before meals especially lunch for nausea Hydralazine 100 mg=2 tab, Active [place] Hydrochloride 50 MG PO, Q8H, # 2015 Medical Oral Tablet 180 tab, 0 Center Refill(s) gabapentin 300 MG 300 mg=1 cap, Active [facility] Oral Capsule PO, Bedtime, 2014 Medical [Neurontin] 0 Refill(s) Center polyethylene glycol 17 gm, PO, Active [facility] 3350 oral powder for Daily, give 2015 Medical reconstitution 1-2 times Center daily for one soft bowel mvmt per day. Hold if diarrhea. dissolve in water or juice, X 7 day, # 255 gm, 0 Refill(s)Spec ial Instructions: give 1-2 times daily for one soft bowel mvmt per day. Hold if diarrhea. dissolve in water or juice pantoprazole 40 mg, 1 tab, Inactive [place] Route: PO, 2014 Medical Drug form: [place] ECTAB, Before Breakfast, Dosing Weight 65.727, kg, Start date: 08/22/15 7:30:00, Duration: 30 day, Stop date: 09/20/15 7:30:00Notes: Tablet should not be chewed or crushed. (Same as: Protonix) Hydralazine 100 mg, 2 No Longer [place] tab, Route: Active 2014 Medical PO, Drug Center form: TAB, Q8H, Dosing Weight 65.909, kg, Start date: 08/21/15 16:00:00, Duration: 30 day, Stop date: 09/20/15 8:00:00Notes: (Same as: Apresoline) May interfere w/enteral feedings Take With Food influenza virus 0.5 mL, Inactive [place] vaccine, inactivated Route: IM, 2014 Medical Drug Form: [place] SUSP, Daily, Start date: 08/21/15 9:00:00, Duration: 1 doses or times, Stop date: 08/21/15 9:00:00Notes: (Same as: Fluzone Quadrivalent) For 3 years of age and older (0.5 mL IM) Shake well before use calcipotriene 0.22608 1 appl, Inactive [place] MG/MG Topical Route: [facility], 2014 Medical Ointment [Calcitrene] Drug Form: [place] OINT, Dosing Weight 65.727, kg, QID, Start date: 08/21/15 9:00:00, Duration: 30 day, Stop date: 09/19/15 21:00:00Notes : (Same As: Dovonex) Miralax 17 gm, 1 pkt, No Longer [place] Route: PO, Active 2014 Medical Drug form: [place] PWDR, BID, Dosing Weight 65.727, kg, Start date: 08/21/15 9:00:00, Duration: 30 day, Stop date: 09/19/15 17:00:00Notes : Dissolve in 8 oz of water or juice. (Same as: Miralax) Hydralazine 10 mg, 0.5 No Longer [place] mL, Route: Active 2014 Medical IVP, Drug Center form: INJ, Q6H, Dosing Weight 65.727, kg, PRN Other -See Comment, Start date: 08/21/15 7:03:00, Duration: 30 day, Stop date: 09/20/15 7:02:00, SBP > 180 or DBP > 110Notes: (Same as: Apresoline) Push over 5 minutes Ciprofloxacin 500 mg, 1 No Longer [place] tab, Route: Active 2014 Medical PO, Drug Center form: TAB, [id number], Dosing Weight 65.727, kg, Start date: 08/21/15 7:00:00, Duration: 30 day, Stop date: 09/19/15 19:00:00Notes : May interfere w/enteral feedings - Take 1 hr before or 2 hrs after antacids, dairy pdt & minerals. On empty stomach. Zofran 4 mg, 2 mL, No Longer [place] Route: IV, Active 2014 Medical Drug form: Center INJ, Q6H, Dosing Weight 65.727, kg, PRN Nausea, Start date: 08/21/15 6:58:00, Duration: 30 day, Stop date: 09/20/15 6:57:00Notes: (Same as: Zofran) MEDICATION WASTE Product Size: 4 mg Product Wasted: ___ mg potassium chloride 40 mEq, 2 Inactive [place] tab, Route: 2014 Medical PO, Drug Center form: ERTAB, ONCE, Dosing Weight 65.727, kg, Start date: 08/21/15 6:56:00, Stop date: 08/21/15 6:56:00Notes: (Same as: K-Dur 20) "Do Not Crush" With food and full glass of water remove patch 1 patch, No Longer [place] Route: TOP, Active 2014 Medical Drug form: Center ERFILM, QWed, Start date: 08/20/15 21:00:00, Duration: 30 day, Stop date: 09/17/15 21:00:00Notes : Remove old patch before application of new patch. Flomax 0.4 mg, 1 No Longer [place] cap, Route: Active 2014 Medical PO, Drug Center form: CAP, Bedtime, Dosing Weight 65.909, kg, Start date: 08/20/15 21:00:00, Duration: 30 day, Stop date: 09/18/15 21:00:00Notes : (Same As: Flomax) "Do Not Crush" Phenytoin 400 mg, 4 No Longer [place] cap, Route: Active 2014 Medical PO, Drug Center form: ERCAP, Bedtime, Dosing Weight 65.909, kg, Start date: 08/20/15 21:00:00, Duration: 30 day, Stop date: 09/18/15 21:00:00Notes : (Same as: Dilantin) Do not open, crush, or chew. Mirtazapine 7.5 mg, 0.5 No Longer [place] tab, Route: Active 2014 Medical PO, Drug Center form: TAB, Bedtime, Dosing Weight 65.909, kg, Start date: 08/20/15 21:00:00, Duration: 30 day, Stop date: 09/18/15 21:00:00Notes : (Same as:Remeron) gabapentin 300 MG 300 mg, 1 No Longer [place] Oral Capsule cap, Route: Active 2014 Medical [Neurontin] PO, Drug Center form: CAP, Bedtime, Dosing Weight 65.909, kg, Start date: 08/20/15 21:00:00, Duration: 30 day, Stop date: 09/18/15 21:00:00Notes : (Same as: Neurontin) 24 HR Nifedipine 90 90 mg, 1 tab, No Longer [place] MG Extended Release Route: PO, Active 2014 Medical Tablet Drug form: Center ERTAB, Lunch, Dosing Weight 65.909, kg, Start date: 08/20/15 12:00:00, Duration: 30 day, Stop date: 09/18/15 12:00:00Notes : (Same as:Adalat CC, Procardia XL) Give on empty stomach. Take 1 hour before or 2 hours after meal; "Avoid grapefruit and grapefruit juice". Do not crush Carbidopa 25 MG / 1 tab, Route: No Longer [place] Levodopa 100 MG Oral PO, Drug Active 2014 Medical Tablet [Sinemet Form: TAB, [place] 25-100] Dosing Weight 65.909, kg, TID, Start date: 08/20/15 9:00:00, Duration: 30 day, Stop date: 09/18/15 17:00:00Notes : Take with milk or food. (Same As: Sinemet) calcipotriene 0.05 1 appl, No Longer [place] MG/ML Topical Cream Route: TOP, Active 2014 Medical BID, Drug Center form: CRM, Start date: 08/20/15 9:00:00, Duration: 30 day, Stop date: 09/18/15 17:00:00Notes : (Same As: Dovonex) Buspar 10 mg, 2 tab, No Longer [place] Route: PO, Active 2014 Medical Drug form: Center TAB, Daily, Dosing Weight 65.909, kg, Start date: 08/20/15 9:00:00, Duration: 30 day, Stop date: 09/18/15 9:00:00Notes: (Same As: BuSpar) Aspirin 325 MG Oral 325 mg, 1 No Longer [place] Tablet tab, Route: Active 2014 Medical PO, Drug Center form: TAB, Daily, Dosing Weight 65.909, kg, Start date: 08/20/15 9:00:00, Duration: 30 day, Stop date: 09/18/15 9:00:00Notes: Take with food. Seroquel 25 mg, 1 tab, No Longer [place] Route: PO, Active 2014 Medical Drug form: Center TAB, Every Other Day, Dosing Weight 65.909, kg, Start date: 08/20/15 9:00:00, Duration: 30 day, Stop date: 09/17/15 9:00:00Notes: (Same as: SEROquel) Bystolic 5 mg, 1 tab, No Longer [place] Route: PO, Active 2014 Medical Drug form: Center TAB, Daily, Dosing Weight 65.909, kg, Start date: 08/20/15 9:00:00, Duration: 30 day, Stop date: 09/18/15 9:00:00Notes: (same as: Bystolic) Lamictal 100 mg, 1 No Longer [place] tab, Route: Active 2014 Medical PO, Drug Center form: TAB, BID, Dosing Weight 65.909, kg, Start date: 08/20/15 9:00:00, Duration: 30 day, Stop date: 09/18/15 17:00:00Notes : (Same as:LaMICtal) Hydrochlorothiazide 12.5 mg, 1 No Longer [place] cap, Route: Active 2014 Medical PO, Drug Center form: CAP, Daily, Dosing Weight 65.909, kg, Start date: 08/20/15 9:00:00, Duration: 30 day, Stop date: 09/18/15 9:00:00Notes: (Same as: Microzide) With food. Finasteride 5 mg, 1 tab, No Longer [place] Route: PO, Active 2014 Medical Drug form: [place] TAB, Daily, Dosing Weight 65.909, kg, Start date: 08/20/15 9:00:00, Duration: 30 day, Stop date: 09/18/15 9:00:00Notes: (Same as: Proscar) "Do Not Crush" Women of childbearing age should not touch or handle broken tablets heparin 5,000 unit, 1 No Longer [place] mL, Route: Active 2014 [facility] SUB-Q, Drug Center form: INJ, Q8H, Dosing Weight 65.727, kg, Start date: 08/20/15 8:00:00, Duration: 30 day, Stop date: 09/19/15 0:00:00Notes: porcine heparin Hydralazine 50 mg, 1 tab, No Longer [facility] Route: PO, Active 2014 Medical Drug form: [place] TAB, Q6H, Dosing Weight 65.909, kg, Start date: 08/20/15 0:00:00, Duration: 30 day, Stop date: 09/18/15 18:00:00Notes : (Same as: Apresoline) May interfere w/enteral feedings Take With Food 168 HR Clonidine 1 patch, No Longer [place] 0.0125 MG/HR Route: TOP, Active 2014 Medical Transdermal Patch Drug Form: [place] ERFILM, Dosing Weight 65.909, kg, Q7D, Start date: 08/19/15 23:51:00, Duration: 30 day, Stop date: 09/09/15 21:00:00Notes : Patch delivers 0.3 mg/24 hours; Catapres-TTS- 3. Cipro 200 mg, 100 No Longer [place] mL, Route: Active 2014 [facility] IVPB, Drug Center form: INJ, [id number], Dosing Weight 65.909, kg, Start date: 08/19/15 23:00:00, Stop date: 09/18/15 11:00:00 Saline Flush 0.9% 10 ml, Route: No Longer [place] IVP, Drug Active 2014 Medical Form: INJ, Center Dosing Weight 65.909, kg, PRN, PRN Line Flush, Start date: 08/19/15 21:19:00, Duration: 30 day, Stop date: 09/18/15 21:18:00Notes : (Same as: BD Posiflush) Acetaminophen 650 mg, 2 No Longer [facility] tab, Route: Active 2014 Medical PO, Drug Center form: TAB, Q4H, Dosing Weight 65.909, kg, PRN Pain 1-3/Temp > 100.4 F, Start date: 08/19/15 21:19:00, Duration: 30 day, Stop date: 09/18/15 21:18:00Notes : Do not exceed 4 gm/day. (Same as: Tylenol) Acetaminophen 325 MG 1 tab, Route: No Longer [place] / Hydrocodone PO, Drug Active 2014 Medical Bitartrate 5 MG Oral Form: TAB, Center Tablet Dosing Weight 65.909, kg, Q4H, PRN Pain Score 4-6, Start date: 08/19/15 21:19:00, Duration: 30 day, Stop date: 09/18/15 21:18:00Notes : (Same as: [place] 325/5) Do not exceed 4gm/day of acetaminophen . Morphine 1 mg, 0.5 mL, No Longer [facility] Route: IVP, Active 2014 Medical Drug form: Center INJ, Q4H, Dosing Weight 65.909, kg, PRN Pain Score 7-10, Start date: 08/19/15 21:19:00, Duration: 30 day, Stop date: 09/18/15 21:18:00Notes : (Same as:MORPhine Sulfate) Sodium Chloride 0.154 1,000 mL, No Longer [facility] MEQ/ML Injectable Rate: 75 Active 2014 Medical Solution ml/hr, Infuse Center over: 13.3 hr, Route: IV, Dosing Weight 65.909 kg, Total Volume: 1,000, Start date: 08/19/15 21:19:00, Duration: 30 day, Stop date: 09/18/15 21:18:00 Cipro 400 mg, 200 Inactive [facility] mL, Route: 2014 Medical IVPB, Drug Center form: INJ, ONCE, Dosing Weight 65.909, kg, Priority: STAT, Start date: 08/17/15 18:32:00, Stop date: 08/17/15 18:32:00Notes : Do not refrigerate Promethazine 25 mg=1 supp, Active [facility] Hydrochloride 25 MG VA, Q8H, # 30 2014 Medical Rectal Suppository supp, 0 Center [Phenergan] Refill(s) Ciprofloxacin 500 MG 500 mg=1 tab, Active [facility] Oral Tablet [Cipro] PO, Q12H, X 2014 Medical 14 day, # 28 Center tab, 0 Refill(s) Ceftriaxone 1 gm, Route: Inactive [facility] IVPB, Drug 2014 Medical form: Center PDR/INJ, ONCE, Dosing Weight 65.909, kg, Priority: STAT, Start date: 08/17/15 14:42:00, Stop date: 08/17/15 14:42:00Notes : (Same As: Rocephin). Use with 100ml NS mini-bag PLUS and infuse over 30 min MEDICATION WASTE Product Size: 1000 mg Product Wasted: ___ mg Iohexol 86 mL, Route: Inactive [place] IVP, Drug 2014 Medical Form: SOLN, [place] Dosing Weight 65.909, kg, ONCALL, STAT, Start date: 08/17/15 12:29:00, Duration: 1 doses or times, Stop date: 08/17/15 21:00:00, Dose=2.2ml/kg , Max igiy=[id number] -- "To be infused by Radiology Staff ONLY"Special Instructions: Dose=2.2ml/kg , Max [id number]=[id number] -- "To be infused by Radiology Staff ONLY"Notes: (same as:Omnipaque 350). Sodium Chloride 0.154 1,000 mL, Inactive [facility] MEQ/ML Injectable 1000 ml/hr, 2014 Medical Solution Infuse Over: Center 1 hr, Route: IV, 1,000, Drug form: INJ, ONCE, Priority: STAT, Dosing Weight 65.909 kg, Start date: 08/17/15 11:56:00, Duration: 1 doses or times, Stop date: 08/17/15 11:56:00 Saline Flush 0.9% 10 mL, Route: Inactive [place] MISC, Drug 2014 Medical Form: INJ, Center Dosing Weight 65.909, kg, PRN, PRN Line Flush, Start date: 08/17/15 11:56:00, Duration: 30 day, Stop date: 09/16/15 11:55:00Notes : (Same as: BD Posiflush) Morphine 4 mg, 1 mL, Inactive [facility] Route: IVP, 2014 Medical Drug form: [place] INJ, ONCE, Dosing Weight 65.909, kg, Priority: STAT, Start date: 08/17/15 11:56:00, Stop date: 08/17/15 11:56:00Notes : (Same as:MORPhine Sulfate) Ondansetron 4 mg, 2 mL, Inactive [facility] Route: IVP, 2014 Medical Drug form: [place] INJ, ONCE, Dosing Weight 65.909, kg, Priority: STAT, Start date: 08/17/15 11:56:00, Stop date: 08/17/15 11:56:00Notes : (Same as: Zofran) MEDICATION WASTE Product Size: 4 mg Product Wasted: ___ mg 168 HR Clonidine 1 patch, TOP, Active [place] 0.0125 MG/HR Q7D, # 4 2015 Medical Transdermal Patch patch, 0 Center Refill(s) finasteride 5 mg oral 5 mg=1 tab, Active [place] tablet PO, Daily, # 2015 Medical 30 tab, 0 Center Refill(s) Neutra-Phos 2 pkt, Route: No Longer [place] PO, Drug Active 2014 Medical Form: [place] PDR/REC, Dosing Weight 30.909, kg, Daily, Start date: 08/12/15 9:00:00, Duration: 30 day, Stop date: 09/10/15 9:00:00Notes: (Same as: Neutra-Phos) Each 1.25 gm pkt has 250mg phosphorous. Mix w/2.5oz water and stir. Nystatin 100 UNT/MG 1 appl, No Longer [place] Topical Powder Route: TOP, Active 2014 Medical TID, Drug Center form: PWDR, Start date: 08/11/15 13:00:00, Duration: 30 day, Stop date: 09/10/15 9:00:00Notes: (Same as:Mycostatin , Nilstat) For external use only. Phenytoin 400 mg, 4 No Longer [place] cap, Route: Active 2014 Medical PO, Drug Center form: ERCAP, Bedtime, Dosing Weight 30.909, kg, Start date: 08/10/15 21:00:00, Duration: 30 day, Stop date: 09/08/15 21:00:00Notes : (Same as: Dilantin) Do not open, crush, or chew. remove patch 1 patch, No Longer [place] Route: TOP, Active 2014 Medical Drug form: Center ERFILM, Q7D, Start date: 08/10/15 9:00:00, Duration: 30 day, Stop date: 09/07/15 9:00:00Notes: Remove old patch before application of new patch. Dilantin 200 mg, 2 Inactive [place] cap, Route: 2014 Medical PO, Drug Center form: ERCAP, ONCE, Start date: 08/09/15 21:00:00, Stop date: 08/09/15 21:00:00Notes : (Same as: Dilantin) Do not open, crush, or chew. Oyster-D 1 tab, Route: No Longer [place] PO, Drug Active 2014 Medical Form: TAB, Center BID, Start date: 08/09/15 9:30:00, Duration: 30 day, Stop date: 09/08/15 9:00:00Notes: (calcium carbonate-vit D 500mg-400unit TAB) Same as: Oyster-D, OsCal-D lactobacillus 1 cap, Route: No Longer [place] rhamnosus GG PO, Drug Active 2014 Medical Form: CAP, Center BID, Start date: 08/09/15 9:30:00, Duration: 30 day, Stop date: 09/08/15 9:00:00Notes: Same as [place] phenytoin 100 mg oral 400 mg=4 cap, Active [place] capsule, extended PO, Bedtime, 2014 Medical release 0 Refill(s) Center Benicar 20 mg, Route: No Longer [place] PO, Drug Active 2014 Medical form: TAB, Center Daily, Dosing Weight 30.909, kg, Start date: 08/09/15 9:00:00, Duration: 30 day, Stop date: 09/07/15 9:00:00 Hydrochlorothiazide 12.5 mg, 1 No Longer [place] cap, Route: Active 2014 Medical PO, Drug Center form: CAP, Daily, Dosing Weight 30.909, kg, Start date: 08/09/15 9:00:00, Duration: 30 day, Stop date: 09/07/15 9:00:00Notes: (Same as: Microzide) With food. Buspar 10 mg, 1 tab, No Longer [place] Route: PO, Active 2014 Medical Drug form: Center TAB, Daily, Dosing Weight 30.909, kg, Start date: 08/09/15 9:00:00, Duration: 30 day, Stop date: 09/07/15 9:00:00Notes: (Same As: BuSpar) Aspirin 325 MG Oral 325 mg, 1 No Longer [place] Tablet tab, Route: Active 2014 Medical PO, Drug Center form: TAB, Daily, Dosing Weight 30.909, kg, Start date: 08/09/15 9:00:00, Duration: 30 day, Stop date: 09/07/15 9:00:00Notes: Take with food. Menthol 0.0044 MG/MG 1 appl, No Longer [place] / Zinc Oxide 0.2 Route: TOP, Active 2014 Medical MG/MG Topical TID, Drug [place] Ointment form: OINT, [Calmoseptine Start date: Ointment] 08/09/15 9:00:00, Duration: 30 day, Stop date: 09/07/15 17:00:00Notes : (Same as: Calmoseptine) lactobacillus 1 tab, Route: Inactive [place] acidophilus and CHEW, Drug 2014 Medical bulgar[place] Form: Center CHEWTAB, Dosing Weight 30.909, kg, TID, Start date: 08/09/15 9:00:00, Duration: 30 day, Stop date: 09/07/15 17:00:00 Calcium Carbonate 1 tab, Route: Inactive [place] 1500 MG / PO, Dosing 2014 Medical Cholecalciferol 400 Weight Center UNT Oral Tablet 30.909, kg, BID, Start date: 08/09/15 9:00:00, Duration: 30 day, Stop date: 09/07/15 17:00:00 Potassium Chloride 40 mEq, 30 Inactive [place] 1.33 MEQ/ML Oral mL, Route: 2014 Medical Solution PO, Drug Center form: LIQ, ONCE, Dosing Weight 30.909, kg, Start date: 08/09/15 8:49:00, Stop date: 08/09/15 8:49:00Notes: (Same as: Potassium Chloride) sodium phosphate + 30 mmol, 10 Inactive [place] Sodium Chloride 0.9% mL, Route: 2014 Medical IV 250 mL IVPB, ONCE, Center Dosing Weight 30.909, kg, Start date: 08/09/15 8:01:00, Stop date: 08/09/15 8:01:00 Mirtazapine 7.5 mg, 0.5 No Longer [place] tab, Route: Active 2014 Medical PO, Drug Center form: TAB, Bedtime, Dosing Weight 30.909, kg, Start date: 08/08/15 21:00:00, Duration: 30 day, Stop date: 09/06/15 21:00:00Notes : (Same as:Remeron) Phenytoin 100 mg, 1 No Longer [place] cap, Route: Active 2014 Medical PO, Drug Center form: ERCAP, QID, Dosing Weight 30.909, kg, Start date: 08/08/15 17:00:00, Duration: 30 day, Stop date: 09/07/15 13:00:00Notes : (Same as: Dilantin) Do not open, crush, or chew. Benicar 20 mg, 1 tab, No Longer [facility] Route: PO, Active 2014 Medical Drug form: Center TAB, Daily, Dosing Weight 30.909, kg, Start date: 08/08/15 17:00:00, Duration: 30 day, Stop date: 09/07/15 9:00:00 Neutra-Phos 2 pkt, Route: No Longer [place] PO, Drug Active 2014 Medical Form: [facility], Dosing Weight 30.909, kg, TID-Meals, Start date: 08/08/15 17:00:00, Duration: 30 day, Stop date: 09/07/15 12:00:00Notes : (Same as: Neutra-Phos) Each 1.25 gm pkt has 250mg phosphorous. Mix w/2.5oz water and stir. Hydralazine 50 mg, 1 tab, No Longer [place] Route: PO, Active 2014 Medical Drug form: [place] TAB, Q6H, Dosing Weight 30.909, kg, Start date: 08/08/15 13:00:00, Duration: 30 day, Stop date: 09/07/15 12:00:00Notes : (Same as: Apresoline) May interfere w/enteral feedings Take With Food Potassium Chloride 40 mEq, 30 Inactive [place] 1.33 MEQ/ML Oral mL, Route: 2014 Medical Solution PO, Drug Center form: LIQ, ONCE, Dosing Weight 30.909, kg, Start date: 08/08/15 12:44:00, Stop date: 08/08/15 12:44:00Notes : (Same as: Potassium Chloride) Neutra-Phos 1 pkt, Route: Inactive [place] PO, Drug 2014 Medical Form: [facility], Dosing Weight 30.909, kg, Q4H, Start date: 08/08/15 8:00:00, Duration: 3 doses or times, Stop date: 08/08/15 16:00:00Notes : (Same as: Neutra-Phos) Each 1.25 gm pkt has 250mg phosphorous. Mix w/2.5oz water and stir. quetiapine 25 MG Oral 25 mg=1 tab, Active [place] Tablet [Seroquel] PO, Every 2014 Medical Other Day [place] Neutra-Phos 1 pkt, Route: No Longer [place] PO, Drug Active 2014 Medical Form: Center PDR/REC, Dosing Weight 30.909, kg, TID-Before Meals, Start date: 08/07/15 11:30:00, Duration: 2 day, Stop date: 08/09/15 7:30:00Notes: (Same as: Neutra-Phos) Each 1.25 gm pkt has 250mg phosphorous. Mix w/2.5oz water and stir. enalapril 5 mg, 1 tab, No Longer [place] Route: PO, Active 2014 Medical Drug form: [place] TAB, Daily, Dosing Weight 30.909, kg, Start date: 08/07/15 9:00:00, Duration: 30 day, Stop date: 09/05/15 9:00:00Notes: (Same as: Vasotec) Dilantin 100 mg, 1 No Longer [place] cap, Route: Active 2014 Medical PO, Drug Center form: ERCAP, TID, Dosing Weight 30.909, kg, Start date: 08/07/15 9:00:00, Duration: 30 day, Stop date: 09/05/15 17:00:00Notes : (Same as: Dilantin) Do not open, crush, or chew. Finasteride 5 mg, 1 tab, No Longer [place] Route: PO, Active 2014 Medical Drug form: [place] TAB, Daily, Dosing Weight 30.909, kg, Start date: 08/07/15 9:00:00, Duration: 30 day, Stop date: 09/05/15 9:00:00Notes: (Same as: Proscar) "Do Not Crush" Women of childbearing age should not touch or handle broken tablets 24 HR Nifedipine 90 90 mg, 1 tab, No Longer [facility] MG Extended Release Route: PO, Active 2014 Medical Tablet Drug form: [place] ERTAB, Daily, Dosing Weight 30.909, kg, Start date: 08/07/15 9:00:00, Duration: 30 day, Stop date: 09/05/15 9:00:00Notes: (Same as:Adalat CC, Procardia XL) Give on empty stomach. Take 1 hour before or 2 hours after meal; "Avoid grapefruit and grapefruit juice". Do not crush Carbidopa 25 MG / 1 tab, Route: No Longer [place] Levodopa 100 MG Oral PO, Drug Active 2014 Medical Tablet [Sinemet Form: TAB, Center 25-100] Dosing Weight 30.909, kg, TID, Start date: 08/07/15 9:00:00, Duration: 30 day, Stop date: 09/05/15 17:00:00Notes : Take with milk or food. (Same As: Sinemet) Lamictal 100 mg, 1 No Longer [place] tab, Route: Active 2014 Medical PO, Drug Center form: TAB, BID, Dosing Weight 30.909, kg, Start date: 08/07/15 9:00:00, Duration: 30 day, Stop date: 09/05/15 17:00:00Notes : (Same as:LaMICtal) tamsulosin 0.8 mg, 2 No Longer [place] cap, Route: Active 2014 Medical PO, Drug Center form: CAP, After Breakfast, Dosing Weight 30.909, kg, Start date: 08/07/15 8:30:00, Duration: 30 day, Stop date: 09/05/15 8:30:00Notes: (Same As: Flomax) "Do Not Crush" Potassium Chloride 20 mEq, 15 Inactive [place] 1.33 MEQ/ML Oral mL, Route: 2014 Medical Solution PO, Drug Center form: LIQ, ONCE, Dosing Weight 30.909, kg, Start date: 08/07/15 7:34:00, Stop date: 08/07/15 7:34:00 sodium phosphate + 15 mmol, 5 Inactive [place] Sodium Chloride 0.9% mL, Route: 2014 Medical IV 250 mL IVPB, ONCE, Center Dosing Weight 30.909, kg, Start date: 08/07/15 7:32:00, Stop date: 08/07/15 7:32:00 Neutra-Phos 1 pkt, Route: Inactive [place] PO, Drug 2014 Medical Form: Center PDR/REC, Dosing Weight 30.909, kg, Q4Hnow, Start date: 08/07/15 7:00:00, Duration: 4 doses or times, Stop date: 08/07/15 19:00:00Notes : (Same as: Neutra-Phos) Each 1.25 gm pkt has 250mg phosphorous. Mix w/2.5oz water and stir. potassium chloride 40 mEq, 2 Inactive [place] tab, Route: 2014 Medical PO, Drug Center form: ERTAB, ONCE, Dosing Weight 30.909, kg, Start date: 08/07/15 6:28:00, Stop date: 08/07/15 6:28:00Notes: (Same as: K-Dur 20) "Do Not Crush" With food and full glass of water Bystolic 5 mg, 1 tab, No Longer [place] Route: PO, Active 2014 Medical Drug form: Center TAB, Daily, Dosing Weight 30.909, kg, Start date: 08/06/15 15:30:00, Duration: 30 day, Stop date: 09/05/15 9:00:00Notes: (same as: Bystolic) Magnesium Sulfate 2 gm, 50 mL, Inactive [place] Route: IVPB, 2014 Medical Drug form: Center INJ, Q2H, Dosing Weight 30.909, kg, Total dose=4 gm, Start date: 08/06/15 10:00:00, Duration: 2 doses or times, Stop date: 08/06/15 12:00:00 heparin 5,000 unit, 1 No Longer [place] mL, Route: Active 2014 [facility] SUB-Q, Drug Center form: INJ, Q8H, Dosing Weight 30.909, kg, Start date: 08/06/15 0:00:00, Duration: 30 day, Stop date: 09/04/15 16:00:00Notes : porcine heparin potassium chloride 10 mEq, 50 Inactive [place] mL, Route: 2014 Medical IVPB, Drug Center form: INJ, Q1H, Dosing Weight 30.909, kg, Total Dose=40 meq, Start date: 08/04/15 20:00:00, Duration: 4 doses or times, Stop date: 08/04/15 23:00:00, Peripheral LineSpecia l Instructions: Peripheral LineNotes: (Same as: KCL) Infuse over 2 hours. potassium phosphate + 30 mmol, 10 Inactive [place] Sodium Chloride 0.9% mL, Route: 2014 Medical IV 250 mL IVPB, ONCE, Center Dosing Weight 30.909, kg, Start date: 08/04/15 19:21:00, Stop date: 08/04/15 19:21:00Notes : (Same as: K Phosphate.) 1 mMol phoshate has 1.47 mEq potassium Infuse over 4 hours PlasmaLyte A PH-7.4 1,000 mL, No Longer [place] 1,000 mL Rate: 100 Active 2014 Medical ml/hr, Infuse Center over: 10 hr, Route: IV, Dosing Weight 30.909 kg, Total Volume: 1,000, Start date: 08/04/15 11:51:00, Duration: 30 day, Stop date: 09/03/15 11:50:00 potassium chloride 10 mEq, 50 Inactive [place] mL, Route: 2014 Medical IVPB, Drug Center form: INJ, Q1H, Dosing Weight 30.909, kg, Total Dose=40 meq, Start date: 08/04/15 8:30:00, Duration: 4 doses or times, Stop date: 08/04/15 11:30:00, Peripheral LineSpecia l Instructions: Peripheral LineNotes: (Same as: KCL) Infuse over 2 hours. Flomax 0.4 mg, 1 No Longer [place] cap, Route: Active 2014 Medical PO, Drug Center form: CAP, After Breakfast, Dosing Weight 30.909, kg, Start date: 08/04/15 8:30:00, Duration: 30 day, Stop date: 09/02/15 8:30:00Notes: (Same As: Flomax) "Do Not Crush" Potassium Chloride 60 mEq, 45 Inactive [place] 1.33 MEQ/ML Oral mL, Route: 2014 Medical Solution PO, Drug Center form: LIQ, ONCE, Dosing Weight 30.909, kg, Start date: 08/04/15 5:32:00, Stop date: 08/04/15 5:32:00Notes: (Same as: Potassium Chloride) Vasotec 0.625 mg, 0.5 No Longer [place] mL, Route: Active 2014 Medical IVP, Drug Center form: INJ, Q6H, Dosing Weight 30.909, kg, Start date: 08/04/15 0:00:00, Duration: 30 day, Stop date: 09/02/15 18:00:00Notes : (Same as: Vasotec-IV) Phenytoin 100 mg, 2 mL, No Longer [place] Route: IVP, Active 2014 Medical Drug form: [place] INJ, Q12H, Dosing Weight 30.909, kg, Start date: 08/03/15 21:00:00, Duration: 30 day, Stop date: 09/02/15 9:00:00Notes: (Same as: Dilantin) Do not infuse greater than 50 mg/min. MEDICATION WASTE Product Size: 100 mg Product Wasted: 0 mg 168 HR Clonidine 1 patch, No Longer [place] 0.0125 MG/HR Route: TOP, Active 2014 Medical Transdermal Patch Drug Form: [place] ERFILM, Dosing Weight 30.909, kg, Q7D, Start date: 08/03/15 21:00:00, Duration: 30 day, Stop date: 08/31/15 9:00:00Notes: Patch delivers 0.3 mg/24 hours; Patch is applied weekly. Catapres-TTS- 3. "Remove old patch before application of new patch" Labetalol 10 mg, 2 mL, No Longer [place] Route: IV, Active 2014 Medical Drug form: [place] INJ, Q4H, Dosing Weight 30.909, kg, PRN See Nurse's Notes, Use if HR>80, Start date: 08/03/15 20:42:00, Duration: 30 day, Stop date: 09/02/15 20:41:00, SBP>160mmHg Hydralazine 20 mg, 1 mL, No Longer [place] Route: IVP, Active 2014 Medical Drug form: [place] INJ, Q4H, Dosing Weight 30.909, kg, PRN Elevated BP, Use if HR160 mmHgNotes: (Same as: Apresoline) Push over 5 minutes Spironolactone 25 mg, 1 tab, Inactive [place] Route: PO, 2014 Medical Drug form: [place] TAB, BID, Dosing Weight 30.909, kg, Start date: 08/03/15 19:44:00, Duration: 30 day, Stop date: 09/02/15 17:00:00Notes : (Same As: Aldactone) Protonix 40 mg, 1 tab, Inactive [facility] Route: PO, 2014 Medical Drug form: Center ECTAB, Before Dinner, Start date: 08/03/15 16:30:00, Duration: 30 day, Stop date: 09/01/15 16:30:00Notes : Tablet should not be chewed or crushed. (Same as: Protonix) Hydralazine 100 mg, 2 Inactive [facility] tab, Route: 2014 Medical PO, Drug Center form: TAB, Q8H-05, Dosing Weight 68.182, kg, Start date: 08/03/15 13:00:00, Stop date: 09/02/15 5:00:00Notes: (Same as: Apresoline) May interfere w/enteral feedings Take With Food VESICARE 10 mg, Route: No Longer [facility] PO, Drug Active 2014 Medical form: TAB, Center Daily, Dosing Weight 68.182, kg, Start date: 08/03/15 9:00:00, Duration: 30 day, Stop date: 09/01/15 9:00:00 Lamictal 100 mg, 1 Inactive [facility] tab, Route: 2014 Medical PO, Drug Center form: TAB, BID, Dosing Weight 68.182, kg, Start date: 08/03/15 9:00:00, Duration: 30 day, Stop date: 09/01/15 17:00:00Notes : (Same as:LaMICtal) Dutasteride 0.5 mg, 1 Inactive [facility] cap, Route: 2014 Medical PO, Drug Center form: CAP, Daily, Dosing Weight 68.182, kg, Start date: 08/03/15 9:00:00, Duration: 30 day, Stop date: 09/01/15 9:00:00Notes: Non-Formulary Drug. (Same As: Avodart) (Do Not Crush) Dexilant 60 mg, Route: No Longer [facility] PO, Drug Active 2014 Medical form: DRC, Center Daily, Dosing Weight 68.182, kg, Start date: 08/03/15 9:00:00, Duration: 30 day, Stop date: 09/01/15 9:00:00 Detrol LA 4 mg, 1 cap, Inactive [facility] Route: PO, 2014 Medical Drug form: Center CAP, Daily, Start date: 08/03/15 9:00:00, Duration: 30 day, Stop date: 09/01/15 9:00:00Notes: Do Not Crush. (Same As: Detrol LA) Carbidopa 25 MG / 1 tab, Route: Inactive [facility] Levodopa 100 MG Oral PO, Drug 2014 Medical Tablet [Sinemet Form: [facility], [place] 25-100] Dosing Weight 68.182, kg, TID, Start date: 08/03/15 9:00:00, Duration: 30 day, Stop date: 09/01/15 17:00:00Notes : Take with milk or food. (Same As: Sinemet) Buspar 10 mg, 1 tab, Inactive [facility] Route: PO, 2014 Medical Drug form: Center TAB, Daily, Dosing Weight 68.182, kg, Start date: 08/03/15 9:00:00, Duration: 30 day, Stop date: 09/01/15 9:00:00Notes: (Same As: BuSpar) Aspirin 325 MG Oral 325 mg, 1 Inactive [facility] Tablet tab, Route: 2014 Medical PO, Drug Center form: TAB, Daily, Dosing Weight 68.182, kg, Start date: 08/03/15 9:00:00, Duration: 30 day, Stop date: 09/01/15 9:00:00Notes: Take with food. Amantadine 100 mg, 1 Inactive [facility] cap, Route: 2014 Medical PO, Drug Center form: CAP, Daily, Dosing Weight 68.182, kg, Start date: 08/03/15 9:00:00, Duration: 30 day, Stop date: 09/01/15 9:00:00Notes: (Same as: Symmetrel) Hydralazine 50 mg, 1 tab, Inactive [facility] Route: PO, 2014 Medical Drug form: [place] TAB, Q6H, Dosing Weight 68.182, kg, Start date: 08/03/15 0:00:00, Duration: 30 day, Stop date: 09/01/15 18:00:00Notes : (Same as: Apresoline) May interfere w/enteral feedings Take With Food Benicar 20 mg, 1 tab, No Longer [place] Route: PO, Active 2014 Medical Drug form: [place] TAB, Daily, Dosing Weight 68.182, kg, Start date: 08/02/15 22:32:00, Duration: 30 day, Stop date: 09/01/15 9:00:00 24 HR Nifedipine 90 90 mg, 1 tab, No Longer [place] MG Extended Release Route: PO, Active 2014 Medical Tablet Drug form: [place] ERTAB, Daily, Dosing Weight 68.182, kg, Start date: 08/02/15 22:32:00, Duration: 30 day, Stop date: 09/01/15 9:00:00Notes: (Same as:Adalat CC, Procardia XL) Give on empty stomach. Take 1 hour before or 2 hours after meal; "Avoid grapefruit and grapefruit juice". Do not crush Bystolic 5 mg, 1 tab, No Longer [place] Route: PO, Active 2014 Medical Drug form: [place] TAB, Daily, Dosing Weight 68.182, kg, Start date: 08/02/15 22:32:00, Duration: 30 day, Stop date: 09/01/15 9:00:00Notes: (same as: Bystolic) Hydrochlorothiazide 12.5 mg, 1 No Longer [place] cap, Route: Active 2014 Medical PO, Drug Center form: CAP, Daily, Dosing Weight 68.182, kg, Start date: 08/02/15 22:32:00, Duration: 30 day, Stop date: 09/01/15 9:00:00Notes: (Same as: Microzide) With food. Bystolic 5 mg, 1 tab, Inactive [place] Route: PO, 2014 Medical Drug form: [place] TAB, ONCE, Start date: 08/02/15 22:18:00, Stop date: 08/02/15 22:18:00Notes : (same as: Bystolic) Adalat CC 90 mg, 1 tab, Inactive [place] Route: PO, 2014 Medical Drug form: [place] ERTAB, ONCE, Start date: 08/02/15 22:17:00, Stop date: 08/02/15 22:17:00Notes : (Same as:Adalat CC, Procardia XL) Give on empty stomach. Take 1 hour before or 2 hours after meal; "Avoid grapefruit and grapefruit juice". Do not crush Benicar 20 mg, 1 tab, Inactive [place] Route: PO, 2014 Medical Drug form: [place] TAB, ONCE, Start date: 08/02/15 22:17:00, Stop date: 08/02/15 22:17:00 168 HR Clonidine 1 patch, No Longer [place] 0.18000 MG/HR Route: TOP, Active 2014 Medical Transdermal Patch Drug Form: [place] ERFILM, Dosing Weight 68.182, kg, Q7D, Start date: 08/02/15 21:00:00, Duration: 30 day, Stop date: 08/30/15 21:00:00Notes : Patch delivers 0.2 mg/24 hours; Patch is applied weekly. "Remove old patch before application of new patch" (Same As: Catapres-TTS- 2) Flomax 0.4 mg, 1 No Longer [place] cap, Route: Active 2014 Medical PO, Drug Center form: CAP, Bedtime, Dosing Weight 68.182, kg, Start date: 08/02/15 21:00:00, Duration: 30 day, Stop date: 08/31/15 21:00:00Notes : (Same As: Flomax) "Do Not Crush" Seroquel 12.5 mg, 0.5 No Longer [facility] tab, Route: Active 2014 Medical PO, Drug Center form: TAB, Bedtime, Dosing Weight 68.182, kg, Start date: 08/02/15 21:00:00, Duration: 30 day, Stop date: 08/31/15 21:00:00Notes : (Same as: SEROquel) Phenytoin 100 mg, 1 No Longer [facility] cap, Route: Active 2014 Medical PO, Drug Center form: ERCAP, QID, Dosing Weight 68.182, kg, Start date: 08/02/15 21:00:00, Duration: 30 day, Stop date: 09/01/15 17:00:00Notes : (Same as: Dilantin) Do not open, crush, or chew. Mirtazapine 7.5 mg, 0.5 No Longer [place] tab, Route: Active 2014 Medical PO, Drug Center form: TAB, Bedtime, Dosing Weight 68.182, kg, Start date: 08/02/15 21:00:00, Duration: 30 day, Stop date: 08/31/15 21:00:00Notes : (Same as:Remeron) gabapentin 300 MG 300 mg, 1 No Longer [place] Oral Capsule cap, Route: Active 2014 Medical [Neurontin] PO, Drug Center form: CAP, Bedtime, Dosing Weight 68.182, kg, Start date: 08/02/15 21:00:00, Duration: 30 day, Stop date: 08/31/15 21:00:00Notes : (Same as: Neurontin) Melatonin 3 mg, 1 tab, No Longer [place] Route: PO, Active 2014 Medical Drug form: Center TAB, Bedtime, Dosing Weight 68.182, kg, PRN as needed for insomnia, Start date: 08/02/15 20:20:00, Duration: 30 day, Stop date: 09/01/15 20:19:00Notes : (Same as: Melatonin) Vitamin B12 1,000 No Longer [place] microgram, Active 2014 Medical PO, Daily, 0 Center Refill(s) nebivolol 5 MG Oral 5 mg=1 tab, Active [place] Tablet [Bystolic] PO, Daily, # 2015 Medical 30 tab, 0 Center Refill(s) Docusate Sodium 100 100 mg=1 cap, Active [facility] MG Oral Capsule PO, BID, PRN 2015 Medical [Colace] Constipation, Center # 20 cap, 0 Refill(s) Probiotic Formula 1 cap, PO, Active [place] oral capsule Daily, 0 2014 Medical Refill(s) [place] Carbidopa 25 MG / 1 tab, PO, Active [place] Levodopa 100 MG Oral TID, # 90 2015 Medical Tablet [Sinemet tab, 0 Center 25-100] Refill(s) amantadine 100 mg 100 mg=1 cap, No Longer [place] oral capsule PO, Daily, 0 Active 2014 Medical Refill(s) Center levocetirizine 5 mg 5 mg=1 tab, No Longer [place] oral tablet PO, QPM, # 30 Active 2014 Medical tab, 1 Center Refill(s) Vitamin C 1,000 mg, PO, Active [facility] Daily, 0 2014 Medical Refill(s) Center Dutasteride 0.5 MG / See No Longer [facility] Tamsulosin Instructions, Active 2014 Medical hydrochloride 0.4 MG 1 cap PO Center Oral Capsule [Anuja] Daily, 0 Refill(s)Spec ial Instructions: 1 cap PO Daily melatonin 3 mg oral 3 mg=1 tab, Active [place] tablet PO, Bedtime, 2015 Medical PRN for Center insomnia, # 60 tab, 0 Refill(s) echinacea oral tablet See Active [facility] Instructions, 2014 Medical 0 Refill(s) Center Centrum Men's 1 tab, PO, Active [place] Daily, 0 2014 Medical Refill(s) Center NS 1,000 mL 1,000 mL, No Longer [place] Rate: 100 Active 2014 Medical ml/hr, Infuse Center over: 10 hr, Route: IV, Dosing Weight 67.273 kg, Total Volume: 1,000, Start date: 08/02/15 17:28:00, Duration: 30 day, Stop date: 09/01/15 17:27:00 Docusate 100 mg, 1 No Longer [facility] cap, Route: Active 2014 Medical PO, Drug Center form: CAP, BID, Dosing Weight 67.273, kg, PRN Constipation, Start date: 08/02/15 17:27:00, Duration: 30 day, Stop date: 09/01/15 17:26:00Notes : (Same as: Colace) (Do Not Crush) Ondansetron 4 mg, 2 mL, No Longer [place] Route: IVP, Active 2014 Medical Drug form: [facility] INJ, Q6H, Dosing Weight 67.273, kg, PRN Nausea & Vomiting, Start date: 08/02/15 17:27:00, Duration: 30 day, Stop date: 09/01/15 17:26:00Notes : (Same as: Zofran) MEDICATION WASTE Product Size: 4 mg Product Wasted: ___ mg Acetaminophen 325 MG 1 tab, Route: No Longer [place] / Hydrocodone PO, Drug Active 2014 Medical Bitartrate 5 MG Oral Form: TAB, Center Tablet Dosing Weight 67.273, kg, Q4H, PRN Pain Score 4-6, Start date: 08/02/15 17:27:00, Duration: 30 day, Stop date: 09/01/15 17:26:00Notes : (Same as: [place] 325/5) Do not exceed 4gm/day of acetaminophen . Acetaminophen 650 mg, 2 No Longer [place] tab, Route: Active 2014 Medical PO, Drug Center form: TAB, Q4H, Dosing Weight 67.273, kg, PRN Pain 1-3/Temp > 100.4 F, Start date: 08/02/15 17:27:00, Duration: 30 day, Stop date: 09/01/15 17:26:00Notes : Do not exceed 4 gm/day. (Same as: Tylenol) PlasmaLyte A PH-7.4 1,000 mL, No Longer [place] 1,000 mL Rate: 100 Active 2014 Medical ml/hr, Infuse Center over: 10 hr, Route: IV, Dosing Weight 67.273 kg, Total Volume: 1,000, Start date: 08/02/15 16:32:00, Duration: 30 day, Stop date: 09/01/15 16:31:00 Zofran 4 mg, 2 mL, Inactive [place] Route: IVP, 2014 Medical Drug form: Center INJ, ONCE, Dosing Weight 67.273, kg, Priority: STAT, Start date: 08/02/15 13:11:00, Stop date: 08/02/15 13:11:00Notes : (Same as: Zofran) MEDICATION WASTE Product Size: 4 mg Product Wasted: 0 mg Sodium Chloride 0.154 500 mL, 500 Inactive [place] MEQ/ML Injectable ml/hr, Infuse 2014 Medical Solution Over: 1 hr, Center Route: IV, 500, Drug form: INJ, ONCE, Priority: STAT, Dosing Weight 67.273 kg, Start date: 08/02/15 12:05:00, Duration: 1 doses or times, Stop date: 08/02/15 12:05:00 Ondansetron 4 mg, 2 mL, Inactive [facility] Route: IVP, 2014 Medical Drug form: Center INJ, ONCE, Dosing Weight 67.273, kg, Priority: STAT, Start date: 08/02/15 11:14:00, Stop date: 08/02/15 11:14:00Notes : (Same as: Zofran) MEDICATION WASTE Product Size: 4 mg Product Wasted: ___ mg Saline Flush 0.9% 10 mL, Route: No Longer [facility] IVP, Drug Active 2014 Medical Form: INJ, Center Dosing Weight 67.273, kg, PRN, PRN Line Flush, Start date: 08/02/15 11:14:00, Duration: 30 day, Stop date: 09/01/15 11:13:00Notes : (Same as: BD Posiflush) Sodium Chloride 0.154 500 mL, 1000 Inactive [facility] MEQ/ML Injectable ml/hr, Infuse 2014 Medical Solution Over: 30 Center minutes, Route: IV, 500, Drug form: INJ, ONCE, Priority: STAT, Dosing Weight 67.273 kg, Start date: 08/02/15 11:14:00, Duration: 1 doses or times, Stop date: 08/02/15 11:14:00 Ondansetron 4 MG 4 mg=1 tab, Active [facility] Disintegrating Tablet PO, TID, TID 2014 Medical before meals, Center # 60 tab, 1 Refill(s), Pharmacy: [id number] Instructions: TID before meals dexlansoprazole 60 MG 60 mg=1 cap, Active [facility] Enteric Coated PO, Daily, # 2014 Medical Capsule [Dexilant] 15 cap, 0 Center Refill(s), given to patient mirtazapine 7.5 mg 7.5 mg=1 tab, Active [facility] oral tablet PO, Bedtime, 2013 # 30 tab, 0 Refill(s) Phenytoin 100 mg, QID, Active [facility] 0 Refill(s) 2013 Olmesartan medoxomil 20 mg=1 tab, Active [place] 20 MG Oral Tablet PO, Daily, # 2014 Medical [Benicar] 90 tab, 0 Center Refill(s) melatonin 3 mg oral 3 mg=1 tab, Active [facility] tablet PO, Bedtime, 2013 for insomnia, # 60 tab, 0 Refill(s) SEROquel 12.5 mg, PO, Active [facility] Bedtime, take 2013 1/2 tablet, 0 Refill(s)take / tablet hydrochlorothiazide 12.5 mg, PO, Active [facility] QID, 0 2013 Refill(s) aspirin 325 mg tablet 325 mg=1 tab, Active [facility] PO, Daily, # 2014 90 tab, 0 Refill(s) hydrALAZINE 75 mg, [...] 300 mg, 1 PO No Longer [facility] cap, Route: Active 2012 Medical PO, Drug Center form: CAP, Daily, Dosing Weight 72.727, kg, Start date: 01/03/13 21:00:00, Duration: 30 day, Stop date: 02/02/13 9:00:00 dutasteride 0.5 mg, 1 PO No Longer [facility] cap, Route: Active 2012 Medical PO, Drug Center form: CAP, Daily, Dosing Weight 76.364, kg, Start date: 01/02/13 9:00:00, Duration: 30 day, Stop date: 01/31/13 9:00:00 Prinivil 20 mg, Route: PO No Longer [facility] PO, Drug Active 2012 Medical form: TAB, Center Daily, Start date: 01/01/13 21:00:00, Duration: 30 day, Stop date: 01/31/13 9:00:00 gabapentin 300 mg, PO No Longer [facility] [place] Route: PO, Active 2012 Medical Drug form: Center CAP, Daily, Dosing Weight 72.727, kg, Start date: 01/01/13 21:00:00, Duration: 30 day, Stop date: 01/31/13 9:00:00 hydrALAZINE 10 mg, 0.5 IV No Longer [facility] mL, Route: Active 2012 Medical IV, Drug Center form: INJ, ONCE, Dosing Weight 76.364, kg, Start date: 01/01/13 6:35:00, Stop date: 01/01/13 6:35:00 gabapentin 300 mg, 1 PO No Longer [facility] cap, Route: Active 2012 Medical PO, Drug Center form: CAP, Daily, Dosing Weight 72.727, kg, Start date: 12/31/12 21:00:00, Duration: 30 day, Stop date: 01/30/13 9:00:00 Prinivil 20 mg, 1 tab, PO No Longer [facility] Route: PO, Active 2012 Medical Drug form: Center TAB, Daily, Start date: 12/31/12 21:00:00, Duration: 30 day, Stop date: 01/30/13 9:00:00 hydrALAZINE 10 mg, 0.5 IV No Longer [facility] mL, Route: Active 2012 Medical IV, Drug Center form: INJ, ONCE, Dosing Weight 76.364, kg, Start date: 12/31/12 12:35:00, Stop date: 12/31/12 12:35:00 potassium chloride 20 mEq, 100 IVPB No Longer [facility] mL, Route: Active 2012 Medical IVPB, Drug Center form: INJ, ONCE, Dosing Weight 76.364, kg, Start date: 12/31/12 11:34:00, Stop date: 12/31/12 11:34:00 Dilantin 100 mg oral 400 mg, 4 PO No Longer [facility] capsule, extended cap, Route: Active 2012 Medical release PO, Drug Center form: ERCAP, Bedtime, Dosing Weight 72.727, kg, Start date: 12/30/12 21:00:00, Stop date: 01/28/13 21:00:00 Procardia 90 mg, Route: PO No Longer [facility] PO, Drug Active 2012 Medical form: CAP, Center Daily, Dosing Weight 72.727, kg, Start date: 12/30/12 9:00:00, Duration: 30 day, Stop date: 01/28/13 9:00:00 aspirin 325 mg, 1 PO No Longer [facility] tab, Route: Active 2012 Medical PO, Drug Center form: TAB, Daily, Dosing Weight 72.727, kg, Start date: 12/30/12 9:00:00, Duration: 30 day, Stop date: 01/28/13 9:00:00 gabapentin 300 mg, 1 PO No Longer [facility] cap, Route: Active 2012 Medical PO, Drug Center form: CAP, Daily, Dosing Weight 72.727, kg, Start date: 12/30/12 9:00:00, Duration: 30 day, Stop date: 01/28/13 9:00:00 Lamictal 100 mg, 1 PO No Longer [facility] tab, Route: Active 2012 Medical PO, Drug Center form: TAB, BID, Dosing Weight 72.727, kg, Start date: 12/30/12 9:00:00, Duration: 30 day, Stop date: 01/28/13 17:00:00 VESIcare 5 mg, Route: PO No Longer [facility] PO, Daily, Active 2012 Medical Dosing Weight [facility] 72.727, kg, Start date: 12/30/12 9:00:00, Duration: 30 day, Stop date: 01/28/13 9:00:00 Flomax 0.4 mg, 1 PO No Longer [facility] cap, Route: Active 2012 Medical PO, Drug Center form: CAP, Daily, Dosing Weight 72.727, kg, Start date: 12/30/12 9:00:00, Duration: 30 day, Stop date: 01/28/13 9:00:00 hydrALAZINE 50 mg 50 mg, 1 tab, PO No Longer [facility] oral tablet Route: PO, Active 2012 Medical Drug form: [place] TAB, QID, Dosing Weight 72.727, kg, Start date: 12/30/12 9:00:00, Stop date: 01/28/13 21:00:00 Bystolic 10 mg, 2 tab, PO No Longer [facility] Route: PO, Active 2012 Medical Drug form: [place] TAB, Daily, Dosing Weight 72.727, kg, Start date: 12/30/12 9:00:00, Duration: 30 day, Stop date: 01/28/13 9:00:00 Lotensin HCT 20 2 tab, Route: PO No Longer [facility] mg-12.5 mg oral PO, Dosing Active 2012 Medical tablet Weight [place] 72.727, kg, Daily, Start date: 12/30/12 9:00:00, Duration: 30 day, Stop date: 01/28/13 9:00:00 enoxaparin 40 mg, 0.4 SUB-Q No Longer [facility] [place] mL, Route: Active 2012 Medical SUB-Q, Drug Center form: INJ, [id number], Dosing Weight 72.727, kg, Start date: 12/30/12 9:00:00, Duration: 30 day, Stop date: 01/28/13 9:00:00 hydrochlorothiazide 25 mg, 1 tab, PO No Longer [facility] [place] Route: PO, Active 2012 Medical Drug form: [place] TAB, Daily, Start date: 12/30/12 9:00:00, Stop date: 01/28/13 9:00:00 Detrol LA 4 mg, 1 cap, PO No Longer [facility] Route: PO, Active 2012 Medical Drug form: [place] CAP, Daily, Start date: 12/30/12 9:00:00, Duration: 30 day, Stop date: 01/28/13 9:00:00 Adalat CC 90 mg, 1 tab, PO No Longer [facility] Route: PO, Active 2012 Medical Drug form: [place] ERTAB, Daily, Start date: 12/30/12 9:00:00, Duration: 30 day, Stop date: 01/28/13 9:00:00 Prinivil 20 mg, 1 tab, PO No Longer [facility] [place] Route: PO, Active 2012 Medical Drug form: Center TAB, Daily, Start date: 12/30/12 9:00:00, Duration: 30 day, Stop date: 01/28/13 9:00:00 magnesium sulfate 2 gm, 50 mL, IVPB No Longer [facility] [place] Route: IVPB, Active 2012 Medical Drug form: Center INJ, Q2H, Dosing Weight 72.727, kg, Total Dose=4 gm, Start date: 12/30/12 8:00:00, Duration: 2 doses or times, Stop date: 12/30/12 10:00:00, For Mg=1.5 - 1.7 mg/dLFor Mg=1.5 - 1.7 mg/dL magnesium sulfate 2 gm, 100 mL, IVPB No Longer [facility] [place] Route: IVPB, Active 2012 Medical Drug form: Center INJ, Q2H, Dosing Weight 72.727, kg, Total Dose=4 gm, Start date: 12/30/12 4:00:00, Duration: 2 doses or times, Stop date: 12/30/12 6:00:00, For Mg=1.5 - 1.7 mg/dLFor Mg=1.5 - 1.7 mg/dL Phenergan 12.5 mg, 0.5 IVPB No Longer [place] mL, Route: Active 2012 Medical IVPB, Drug Center form: INJ, ONCE, Dosing Weight 72.727, kg, PRN Nausea & Vomiting, Start date: 12/30/12 3:52:00, Stop date: 01/29/13 2:51:00 aspirin 325 mg, PO No Longer [facility] [place] Route: PO, Active 2012 Medical Drug form: Center TAB, ONCE, Dosing Weight 72.727, kg, Priority: STAT, Start date: 12/30/12 3:46:00, Stop date: 12/30/12 3:46:00 potassium chloride 40 mEq, 30 [place] No Longer [facility] [place] mL, Route: Active 2012 Medical [place], Drug Center form: LIQ, ONCE, Dosing Weight 72.727, kg, Start date: 12/30/12 3:43:00, Duration: 1 doses or times, Stop date: 12/30/12 3:43:00, For K=3 - 3.4 mEq/LFor K=3 - 3.4 mEq/L D5W 1/2NS + KCL 1,000 mL, IV No Longer [facility] [place] 20mEq/L 1000ml Rate: 75 Active 2012 Medical ([employer]) 1,000 mL ml/hr, Infuse Center over: 13.3 hr, Route: IV, kg, Total Volume: 1,000, Start date: 12/30/12 3:42:00, Duration: 30 day, Stop date: 01/29/13 3:41:00 hydrALAZINE 20 mg, Route: IVP No Longer [facility] IVP, ONCE, Active 2012 Medical Dosing Weight [facility] 72.727, kg, Priority: STAT, Start date: 12/30/12 2:48:00, Stop date: 12/30/12 2:48:00 hydrALAZINE 50 mg 1 tab, Route: PO No Longer [place] oral tablet PO, ONCE, Active 2012 Medical Dosing Weight Center 72.727, kg, Start date: 12/30/12 2:37:00, Stop date: 12/30/12 2:37:00 Zofran 8 mg, 4 mL, IVP No Longer [place] Route: IVP, Active 2012 Medical Drug form: [place] INJ, ONCE, Dosing Weight 72.727, kg, Priority: STAT, Start date: 12/30/12 1:16:00, Stop date: 12/30/12 1:16:00 Omnipaque 350mg/ml 82 mL, Route: IVP No Longer [facility] IVP, Drug Active 2012 [facility] 72.727, kg, ONCALL, STAT, Start date: 12/29/12 23:44:00, Duration: 1 doses or times, Dose=2.2ml/kg , Max [id number]=[id number] -- "To be infused by Radiology Staff ONLY"Dose=2.2 ml/kg, Max [id number] -- "To be infused by Radiology Staff ONLY" Zofran 4 mg, 2 mL, IVP No Longer [place] Route: IVP, Active 2012 Medical Drug form: Center INJ, ONCE, Dosing Weight 72.727, kg, Priority: STAT, Start date: 12/29/12 22:54:00, Stop date: 12/29/12 22:54:00 levocetirizine 5 mg 5 mg, 1 tab, PO Active [facility] oral tablet PO, QPM2011 Substitution Allowed, Maintenance Lamictal 100 mg oral 100 mg, 1 PO Active [facility] tablet tab, PO, 2011 Q12H, Substitution Allowed Flagyl 500 mg oral 500 mg, 1 PO Active [facility] tablet tab, PO, TID, 2011 2 weeks duration of treatment- started 07/31/2012, Substitution Allowed2 weeks duration of treatment- started 07/31/2012 hyoscyamine 0.125 mg 0.125 mg, 1 SL Active [facility] sublingual tablet tab, SL, Q4H, 2011 may take up to 2 SL PRN, Substitution Allowedmay take up to 2 SL PRN Anuja oral capsule 1 cap, PO, PO Active [facility] Daily2011 finesteride/f wilber combo 1mg, Substitution Allowed, Maintenancefi nesteride/merna max combo 1mg Calcium 600 +D oral 1 [...] hydrochlorothiazide 25 mg, 1 tab, PO Active 01/07[facility] 25 mg oral tablet PO, Daily, 2011 tab, Substitution Allowed Bystolic 10 mg oral 10 mg, 1 tab, PO Active 01/07/ [facility] tablet PO, Daily, 2011 tab, Substitution Allowed, TAB aspirin 81 mg tablet, 81 mg, 1 tab, PO Active 01/07[facility] enteric coated PO, Daily, 0 2011 tab, Substitution Allowed, ECTAB Allergies, Adverse Reactions, Alerts Substance Category Reaction Severity Reaction Status Date Comments Source type Reported NKDA Assertion Drug Active [facility] allergy Immunizations Immunization Date Site Status Last Updated Comments Source Given influenza virus Right completed [facility] OPID vaccine, 5 deltoid [place] [facility], [facility] Results Order Name Results Value Reference Date Interpretation Comments Source Range Chest 2 Chest 2 EXAM: XR CHEST 2 VIEWS 04/25 - OPID views DX views - [place] [facility] DATE: 04/25/2018 2:53 PM CDT Read [...] VIEWS - OPID Compl w Compl - [place] decub/erect decub/erect Imaging views DX views DX [...] series 05/20 - OPID acute acute series /2017 - [place] series w w chest 1 Imaging chest [...] 04/15 - OPID views DX views - [place] [facility] DATE: 04/15/2017 10:21 AM CDT Read [...] ONE VIEW 02/28 - OPID DX - [place] [facility] DATE: 02/28/2017 11:27 AM CDT Read by: Kaz nOeil MD Dictated Date/time: 02/28/17 12:06 Electronically Signed [...] EXAM: CT CHEST WITHOUT CONTRAST 12/13 - [facility] contrast CT contrast CT /2016 - Medical This report was dictated by a Pv Design And Installation Technician/Fellow. I have personally reviewed the images as Center well as the Resident's interpretation and agree with the findings. DATE: 12/13/2016 7:17 AM RECTIFYING OPERATOR Read by: Victoria Trejo MD Resident: Victoria [...] Torso-Outsid EXAM: CT CHEST WITHOUT CONTRAST 10/07 [facility] de Consult e Consult CT /2016 - [facility] DATE: 10/07/2016 1:29 PM RECTIFYING OPERATOR Read by: Pito Ware MD Dictated Date/time: [...] Phosphorus 2.6 mg/dL 2.5 - 4.5 10/07 [facility] [address] [place] [address] CHEM PANEL AST 11 unit/L 0 - 37 10/07 [facility]2015 [facility] CHEM PANEL Alk Phos 105 unit/L 39 - 136 10/07 [facility]2015 [facility] CHEM PANEL A/G Ratio 1.0 0.7 - 1.6 10/07 [facility] CHEM PANEL ALT 11 unit/L 0 - 65 10/07 [facility]2015 [facility] CHEM PANEL Globulin 2.9 g/dL 2.7 - 4.2 10/07 [facility]2015 [facility] CHEM PANEL Total 5.9 g/dL 6.4 - 8.4 10/07 [facility] CHEM PANEL Albumin Lvl 3.0 g/dL 3.5 - 5.0 10/07 [facility]2015 [facility] CHEM PANEL Bili 0.2 mg/dL 0.0 - 1.0 10/07 [facility] CHEM PANEL Bili Total 0.3 mg/dL 0.2 - 1.3 10/07 [facility]2015 [facility] CHEM PANEL Bili Direct 0.1 mg/dL 0.0 - 0.3 10/07 [facility]2015 [facility] CHEM PANEL Magnesium 2.1 mg/dL 1.8 - 2.4 10/07 [facility] ELECTROLYTE AGAP 17.5 meq/L 10.0 - 10/07 [facility] 20.0 [facility] ELECTROLYTE eGFR 78 10/07 Result Comment: The eGFR is calculated using the CKD-EPI formula. In most young, healthy individuals the eGFR will be >90 mL/ min/1.73m2. The eGFR declines with age. An eGFR of 60-89 may be normal in [facility] mL/min/1.7 some populations, particularly the elderly, for whom the CKD-EPI formula has not been extensively validated. Use of the eGFR is not recommended in the following populations: [address] Individuals with unstable creatinine concentrations, including [...] BUN 18 mg/dL 7 - 22 10/07 [facility] ELECTROLYTE Creatinine 0.88 mg/dL 0.50 - 10/07 [facility] Lvl 1.40 [facility] ELECTROLYTE Sodium Lvl 142 meq/L 135 - 145 10/07 [facility] ELECTROLYTE Glucose Lvl 82 mg/dL 70 - 99 10/07 [facility] ELECTROLYTE Chloride Lvl 104 meq/L 95 - 109 10/07 [facility]2015 [facility] ELECTROLYTE CO2 24 meq/L 24 - 32 10/07 [facility]2015 [facility] ELECTROLYTE Potassium 3.5 meq/L 3.5 - 5.1 10/07 [facility] ELECTROLYTE Calcium Lvl 8.8 mg/dL 8.5 - 10.5 10/07 [facility]2015 [facility] HEMATOLOGY Monocytes 6.2 % 2.0 - 12.0 10/07 [facility]2015 [facility] HEMATOLOGY Basophils 0.7 % 0.0 - 1.0 10/07 [facility] HEMATOLOGY Eosinophils 12.7 % 0.0 - 4.0 10/07 [facility] HEMATOLOGY Segs-Bands # 4.2 K/CMM 1.5 - 8.1 10/07 [facility] HEMATOLOGY Lymphocytes 1.2 K/CMM 1.0 - 5.5 10/07 [facility] # /2015 [facility] HEMATOLOGY Eosinophils 0.8 K/CMM 0.0 - 0.5 10/07 [facility] # /2015 [facility] HEMATOLOGY Monocytes # 0.4 K/CMM 0.0 - 0.8 10/07 /2015 [facility] HEMATOLOGY Lymphocytes 17.4 % 20.0 - 10/07 [place] 40.0 [facility] HEMATOLOGY Segs 63.0 % 45.0 - 10/07 [place] 75.0 /2015 [facility] HEMATOLOGY MPV 8.4 fL 7.4 - 10.4 10/07 /2015 [facility] HEMATOLOGY Hct 32.7 % 42.0 - 10/07 [place] 54.0 [facility] HEMATOLOGY MCH 31.2 pg 27.0 - 10/07 [place] 31.0 [facility] HEMATOLOGY RBC 3.63 M/CMM 4.70 - 10/07 [place] 6.10 [facility] HEMATOLOGY Hgb 11.3 g/dL 14.0 - 10/07 [place] 18.0 [facility] HEMATOLOGY WBC 6.7 K/CMM 3.7 - 10.4 10/07 /2015 [facility] HEMATOLOGY Platelet 218 K/CMM 133 - 450 10/07 [facility] HEMATOLOGY RDW 12.8 % 11.5 - 10/07 [place] 14.5 [facility] HEMATOLOGY MCHC 34.6 g/dL 32.0 - 10/07 [place] 36.0 [facility] HEMATOLOGY MCV 90.2 fL 80.0 - 10/07 [place] 94.0 [facility] PARATHYROID Ca Norm WB 1.12 1.05 - 10/07 [facility] PROFILE mMol/L 1. [facility] PARATHYROID Ca Ion WB 1.14 1.05 - 10/07 [facility] PROFILE mMol/L 1. [facility] Esophagus Esophagus BA EXAM: FLUOROSCOPY MODIFIED BARIUM SWALLOW 10/07 - [facility] [place] BA swallow swallow /2015 - Medical function function This report was dictated by a Pv Design And Installation Technician/ Fellow. I have personally reviewed the images [...] consistencies. Thin barium: Silent aspiration was observed. Crane barium: Deep penetration was observed, improved with chin tuck. Pudding barium: Flash penetration. No aspiration. Solid with barium: Flash penetration. No aspiration. IMPRESSION: 1. Silent aspiration with thin consistency contrast material. 2. Deep penetration with nectar consistency contrast material. 3. Please also see detailed chart note by speech pathology. CHEM PANEL Phosphorus 3.2 mg/dL 2.5 - 4.5 10/[address] CHEM PANEL Magnesium 2.5 mg/dL 1.8 - 2.4 10/[address] ELECTROLYTE AGAP 19.7 meq/L 10.0 - 10/06 [facility] 20.0 [facility] ELECTROLYTE Calcium Lvl 8.7 mg/dL 8.5 - 10.5 10/[address] ELECTROLYTE Potassium 3.7 meq/L 3.5 - 5.1 10/[address] ELECTROLYTE Chloride Lvl 105 meq/L 95 - 109 10/[address] ELECTROLYTE CO2 22 meq/L 24 - 32 10/[address] ELECTROLYTE eGFR 76 10/06 Result Comment: The eGFR is calculated using the CKD-EPI formula. In most young, healthy individuals the eGFR will be >90 mL/ min/1.73m2. The eGFR declines with age. An eGFR of 60-89 may be normal in [facility] [place] [facility] mL/min/1.7 some populations, particularly the elderly, for whom the CKD-EPI formula has not been extensively validated. Use of the eGFR is not recommended in the following populations: [address] Individuals with unstable creatinine concentrations, including [...] ELECTROLYTE Creatinine 0.91 mg/dL 0.50 - 10/06 [facility] S Lvl 1.40 [facility] ELECTROLYTE BUN 23 mg/dL 7 - 22 10/06 [facility] S 2015 [facility] ELECTROLYTE Glucose Lvl 66 mg/dL 70 - 99 10/06 [facility] S 2015 [facility] ELECTROLYTE Sodium Lvl 143 meq/L 135 - 145 10/06 [facility] S /2015 [facility] HEMATOLOGY Segs 71.3 % 45.0 - 10/06 [place] 75.0 [facility] HEMATOLOGY Eosinophils 11.6 % 0.0 - 4.0 10/06 2015 [facility] HEMATOLOGY Basophils 0.4 % 0.0 - 1.0 10/06 [facility]2015 [facility] HEMATOLOGY Lymphocytes 0.8 K/CMM 1.0 - 5.5 10/06 [facility] # 2016 [facility] HEMATOLOGY Segs-Bands # 4.6 K/CMM 1.5 - 8.1 10/[address] HEMATOLOGY Monocytes 4.3 % 2.0 - 12.0 10/[address] HEMATOLOGY Lymphocytes 12.4 % 20.0 - 10/06 [place] 40.0 [facility] HEMATOLOGY Eosinophils 0.8 K/CMM 0.0 - 0.5 10/06 [facility] 2016 [facility] HEMATOLOGY Monocytes # 0.3 K/CMM 0.0 - 0.8 10/06 [facility]2015 [facility] HEMATOLOGY MPV 8.2 fL 7.4 - 10.4 10/06 [facility]2015 [facility] HEMATOLOGY RDW 12.8 % 11.5 - 10/06 [place] 14.5 [facility] HEMATOLOGY Platelet 189 K/CMM 133 - 450 10/06 [facility]2015 [facility] HEMATOLOGY MCHC 33.9 g/dL 32.0 - 10/06 [place] 36.0 /2015 [facility] HEMATOLOGY Hgb 10.3 g/dL 14.0 - 10/06 [facility] 18.0 [facility] HEMATOLOGY RBC 3.32 M/CMM 4.70 - 10/06 [place] 6.10 [facility] HEMATOLOGY Hct 30.4 % 42.0 - 10/06 [place] 54.0 /2015 [facility] HEMATOLOGY MCH 31.2 pg 27.0 - 10/06 [place] 31.0 [facility] HEMATOLOGY MCV 91.8 fL 80.0 - 10/06 [place] 94.0 [facility] HEMATOLOGY WBC 6.5 K/CMM 3.7 - 10.4 10/06 [facility] /2015 [facility] PARATHYROID Ca Ion WB 1.11 1. - 10/06 [facility] PROFILE mMol/L 1. [facility] PARATHYROID Ca Norm WB 1.13 1. - 10/06 [facility] PROFILE mMol/L 1. [facility] Chest 1view Chest 1view EXAM: XR CHEST 1 VIEW 10/06 [facility] DX DX 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 INDICATION: Acute cognitive change Read by: [...] Magnesium 2.4 mg/dL 1.8 - 2.4 10/05 [facility] /2015 [facility] CHEM PANEL Phosphorus 3.0 mg/dL 2.5 - 4.5 10/[address] ELECTROLYTE Chloride Lvl 102 meq/L 95 - 109 10/[address] ELECTROLYTE Potassium 3.9 meq/L 3.5 - 5.1 10/05 [facility] /[address] [place] [address] ELECTROLYTE AGAP 15.9 meq/L 10.0 - 10/05 [facility] 20.0 [facility] ELECTROLYTE CO2 26 meq/L 24 - 32 10/[address] ELECTROLYTE Calcium Lvl 8.2 mg/dL 8.5 - 10.5 10/[address] ELECTROLYTE eGFR 69 10/05 Result Comment: The eGFR is calculated using the CKD-EPI formula. In most young, healthy individuals the eGFR will be >90 mL/ min/1.73m2. The eGFR declines with age. An eGFR of 60-89 may be normal in [facility] mL/min/1.7 some populations, particularly the elderly, for whom the CKD-EPI formula has not been extensively validated. Use of the eGFR is not recommended in the following populations: [address] Individuals with unstable creatinine concentrations, including [...] BUN 24 mg/dL 7 - 22 10/[address] ELECTROLYTE Creatinine 0.98 mg/dL 0.50 - 10/05 [facility] [place] S Lvl 1.40 /2015 [facility] ELECTROLYTE Glucose Lvl 104 mg/dL 70 - 99 10/05 [facility] S /2015 [facility] ELECTROLYTE Sodium Lvl 140 meq/L 135 - 145 10/05 [facility] S /2015 [facility] HEMATOLOGY RDW 12.7 % 11.5 - 11 [place] 14.5 /2015 [facility] HEMATOLOGY MPV 8.6 fL 7.4 - 10.4 10/05 /2015 [facility] HEMATOLOGY Platelet 181 K/CMM 133 - 450 10/05 [facility] HEMATOLOGY MCHC 33.8 g/dL 32.0 - 10/05 [place] 36.0 /2015 [facility] HEMATOLOGY MCH 31.2 pg 27.0 - 10/05 [facility] 31.0 [facility] HEMATOLOGY MCV 92.4 fL 80.0 - 10/05 [facility] 94.0 /2015 [facility] HEMATOLOGY Hct 31.3 % 42.0 - 10/05 [place] 54.0 /2015 [facility] HEMATOLOGY Hgb 10.6 g/dL 14.0 - 10/05 [place] 18.0 [facility] HEMATOLOGY RBC 3.39 M/CMM 4.70 - 10/05 [place] 6.10 /2015 [facility] HEMATOLOGY WBC 8.9 K/CMM 3.7 - 10.4 10/05 [facility] HEMATOLOGY Eosinophils 0.7 K/CMM 0.0 - 0.5 10/05 # /2015 [facility] HEMATOLOGY Lymphocytes 6.7 % 20.0 - 10/05 [place] 40.0 /2016 [facility] HEMATOLOGY Monocytes 5.6 % 2.0 - 12.0 10/05 [facility] HEMATOLOGY Basophils 0.2 % 0.0 - 1.0 10/05 [facility] HEMATOLOGY Eosinophils 8.6 % 0.0 - 4.0 10/05 /2015 [facility] HEMATOLOGY Segs-Bands # 6.5 K/CMM 1.5 - 8.1 10/05 /2015 [facility] HEMATOLOGY Monocytes # 0.5 K/CMM 0.0 - 0.8 10/05 /2015 [facility] HEMATOLOGY Lymphocytes 0.6 K/CMM 1.0 - 5.5 10/05 /2015 [facility] HEMATOLOGY Segs 78.9 % 45.0 - 10/05 [place] 75.0 /2016 [facility] PARATHYROID Ca Ion WB 1.08 1.05 - 10/05 [facility] PROFILE mMol/L 1. [facility] PARATHYROID Ca Norm WB 1.08 1.05 - 10/05 [facility] PROFILE mMol/L 1. [facility] URINE AND UA Sq Epi Rare /LPF Few /LPF 10/04 [facility] URINE AND UA RBC None Seen 0 - 2 10/04 [facility] (10/04/16 10:46 AM) [place] URINE AND UA Bacteria Occasional None Seen 10/04 [facility] /HPF /HPF /2015 [facility] URINE AND UA WBC None Seen None Seen 10/04 [facility] (10/04/16 10:46 AM) [place] URINE AND UA Mucus None Seen None Seen 10/04 [facility] (10/04/16 10:46 AM) [place] URINE AND UA 0.2 EU/dL 0.1 - 1.0 10/04 [facility] Urobilinogen [facility] URINE AND UA Blood Negative Negative 10/04 [facility] (10/04/16 10:46 AM) [place] URINE AND UA Bili Negative Negative 10/04 [facility] *NA* [place] (10/04/16 10:46 AM) URINE AND UA Nitrite Negative Negative 10/04 [facility] (10/04/16 10:46 AM) [place] URINE AND UA Leuk Est Negative Negative 10/04 [facility] (10/04/16 10:46 AM) [place] URINE AND UA Turbidity Clear Clear 10/04 [facility] (10/04/16 10:46 AM) [place] URINE AND UA Color Yellow Yellow 10/04 [facility] *NA* [place] (10/04/16 10:46 AM) URINE AND UA Spec Grav 1.010 <=1.030 10/04 [facility] URINE AND UA Ketones Negative Negative 10/04 [facility] mg/dL mg/dL [facility] URINE AND UA Glucose Negative Negative 10/04 [facility] mg/dL mg/dL [facility] URINE AND UA Protein Negative Negative 10/04 [facility] mg/dL mg/dL [facility] URINE AND UA pH 8.0 5.0 - 8.0 10/04 [facility] CARDIAC Troponin-I null 0.00 - 10/04 [facility] ENZYMES 0.40 [facility] CHEM PANEL Lipase Lvl 69 unit/L 73 - 393 10/04 [facility] CHEM PANEL Bili Direct 0.1 mg/dL 0.0 - 0.3 10/04 [facility] CHEM PANEL Bili Total 0.4 mg/dL 0.2 - 1.3 10/04 [facility] /2015 [facility] CHEM PANEL Alk Phos 127 unit/L 39 - 136 10/04 [facility] CHEM PANEL AST 13 unit/L 0 - 37 10/04 [facility]2015 [facility] CHEM PANEL Albumin Lvl 3.4 g/dL 3.5 - 5.0 10/04 [facility] CHEM PANEL ALT 10 unit/L 0 - 65 10/04 [facility]2015 [facility] CHEM PANEL Total 6.6 g/dL 6.4 - 8.4 10/04 [facility] CHEM PANEL Globulin 3.2 g/dL 2.7 - 4.2 10/04 [facility] CHEM PANEL Bili 0.3 mg/dL 0.0 - 1.0 10/04 [facility] CHEM PANEL A/G Ratio 1.1 0.7 - 1.6 10/04 [facility] HEMATOLOGY PTT 30.3 s 22.9 - 10/04 [facility] 35.8 /2015 [facility] HEMATOLOGY PT 14.9 s 12.0 - 10/04 [facility] 14.7 [facility] HEMATOLOGY INR 1.15 0.85 - 10/04 [facility] 1.17 [facility] HEMATOLOGY Plt Morph Normal 10/04 [facility] (10/04/16 9:05 AM) [place] HEMATOLOGY RBC Morph Normal 10/04 [facility] (10/04/16 9:05 AM) [place] Abdomen Abdomen EXAM: XR ABDOMEN 2 VIEWS 10/04 - [place] Compl w Compl w - Medical decub/erect decub/erect Center views DX views DX [...] [place] views DX views DX /2015 - [facility] DATE: 10/04/2016 0952 hours Read by: [...] OPID views DX views DX /2015 - [place] [facility] DATE: 07/09/2016 10:55 AM CDT Read [...] OPID views DX views DX /2015 - [place] [facility] DATE: 06/04/2016 10:18 AM CDT Read [...] shoulder. MOLECULAR C difficile Negative Negative 08/22 [facility] DIAGNOSTIC [facility] (08/22/15 7:43 AM) [place] CHEM PANEL eGFR 77 08/21 Result Comment: The eGFR is calculated using the CKD-EPI formula. In most young, healthy individuals the eGFR will be >90 mL/ min/1.73m2. The eGFR declines with age. An eGFR of 60-89 may be normal in [facility] mL/min/1.7 some populations, particularly the elderly, for whom the CKD-EPI formula has not been extensively validated. Use of the eGFR is not recommended in the following populations: [address] Individuals with unstable creatinine concentrations, including [...] CO2 25 meq/L 24 - 32 08/21 [facility] [address] [place] [address] CHEM PANEL Calcium Lvl 8.3 mg/dL 8.5 - 10.5 08/[address] CHEM PANEL Sodium Lvl 140 meq/L 135 - 145 08/[address] CHEM PANEL Creatinine 0.9 mg/dL 0.5 - 1.4 08/21 [facility] [address] [place] [address] CHEM PANEL Chloride Lvl 107 meq/L 95 - 109 08/[address] CHEM PANEL Potassium 3.4 meq/L 3.5 - 5.1 08/21 [facility] [address] [place] [address] CHEM PANEL Glucose Lvl 95 mg/dL 70 - 99 08/[address] CHEM PANEL BUN 9 mg/dL 7 - 22 08/[address] CHEM PANEL AGAP 11.4 meq/L 10.0 - 08/21 [facility] 20.0 [facility] HEMATOLOGY MCHC 34.0 g/dL 32.0 - 08/21 [facility] 36.0 [facility] HEMATOLOGY RDW 13.7 % 11.5 - 08/21 [facility] 14.5 [facility] HEMATOLOGY MPV 8.2 fL 7.4 - 10.4 1001 [facility] HEMATOLOGY Platelet 188 K/CMM 133 - 450 08/21 [facility] HEMATOLOGY MCV 95.9 fL 80.0 - 08/21 94.0 [facility] HEMATOLOGY Hgb 11.2 g/dL 14.0 - 08/21 18.0 [facility] HEMATOLOGY Hct 32.9 % 42.0 - 08/21 54.0 [facility] HEMATOLOGY RBC 3.43 M/CMM 4.70 - 08/21 [place] 6.10 [facility] HEMATOLOGY MCH 32.7 pg 27.0 - 08/21 [facility] 31.0 [facility] HEMATOLOGY WBC 4.4 K/CMM 3.7 - 10.4 08/21 [facility] CHEM PANEL A/G Ratio 1.2 0.7 - 1.6 08/[address] CHEM PANEL Globulin 2.5 g/dL 2.0 - 4.0 08/20 2014 [facility] CHEM PANEL AGAP 9.5 meq/L 10.0 - 08/20 20.0 [facility] CHEM PANEL B/C Ratio 15 6 - 25 08/20 2014 [facility] CHEM PANEL Total 5.4 g/dL 6.4 - 8.4 08/20 [facility] CHEM PANEL Chloride Lvl 109 meq/L 95 - 109 08/20 [facility] CHEM PANEL Calcium Lvl 8.3 mg/dL 8.5 - 10.5 08/20 2014 [facility] CHEM PANEL Albumin Lvl 2.9 g/dL 3.5 - 5.0 08/20 [facility] CHEM PANEL CO2 27 meq/L 24 - 32 08/20 [facility] CHEM PANEL Bili Total 0.2 mg/dL 0.2 - 1.3 08/20 2014 [facility] CHEM PANEL ALT 18 unit/L 0 - 65 08/20 2014 [facility] CHEM PANEL Alk Phos 89 unit/L 39 - 136 08/20 2014 [facility] CHEM PANEL AST 15 unit/L 0 - 37 08/20 2014 [facility] CHEM PANEL eGFR 68 08/20 Result Comment: The eGFR is calculated using the CKD-EPI formula. In most young, healthy individuals the eGFR will be >90 mL/ min/1.73m2. The eGFR declines with age. An eGFR of 60-89 may be normal in [facility] mL/min/1. some populations, particularly the elderly, for whom the CKD-EPI formula has not been extensively validated. Use of the eGFR is not recommended in the following populations: [address] Individuals with unstable creatinine concentrations, including [...] Potassium 3.5 meq/L 3.5 - 5.1 08/20 [facility] CHEM PANEL BUN 15 mg/dL 7 - 08/20 [facility]2014 [facility] CHEM PANEL Sodium Lvl 142 meq/L 135 - 145 08/20 [facility] CHEM PANEL Creatinine 1.0 mg/dL 0.5 - 1.4 08/20 [facility] CHEM PANEL Glucose Lvl 95 mg/dL 70 - 99 08/[address] CHEM PANEL Phosphorus 3.1 mg/dL 2.5 - 4.5 08/20 2014 [facility] CHEM PANEL Magnesium 1.8 mg/dL 1.8 - 2.4 08/20 [facility] HEMATOLOGY RDW 13.5 % 11.5 - 08/20 14. [facility] HEMATOLOGY Platelet 206 K/CMM 133 - 450 08/20 [facility] HEMATOLOGY MPV 8.4 fL 7.4 - 10.4 08/20 [facility] HEMATOLOGY RBC 3.33 M/CMM 4.70 - 08/20 [place] 6.10 [facility] HEMATOLOGY WBC 5.3 K/CMM 3.7 - 10.4 08/20 [facility] HEMATOLOGY MCHC 33.8 g/dL 32.0 - 08/20 [place] 36.0 [facility] HEMATOLOGY Hgb 10.9 g/dL 14.0 - 08/20 18.0 [facility] HEMATOLOGY Hct 32.1 % 42.0 - 08/20 [facility] 54.0 /2014 [facility] HEMATOLOGY MCV 96.4 fL 80.0 - 08/20 [place] 94.0 /2014 [facility] HEMATOLOGY MCH 32.6 pg 27.0 - 08/20 [place] 31.0 /2014 [facility] HEMATOLOGY Eosinophils 0.3 K/CMM 0.0 - 0.5 08/20 [facility] # /2014 [facility] HEMATOLOGY Eosinophils 5.4 % 0.0 - 4.0 08/20 /2014 [facility] HEMATOLOGY Lymphocytes 0.9 K/CMM 1.0 - 5.5 08/20 [facility] # /2014 [facility] HEMATOLOGY Basophils 0.8 % 0.0 - 1.0 08/20 /2014 [facility] HEMATOLOGY Segs-Bands # 3.7 K/CMM 1.5 - 8.1 08/20 [facility] HEMATOLOGY Monocytes # 0.4 K/CMM 0.0 - 0.8 08/20 /[address] [place] [address] HEMATOLOGY Segs 70.0 % 45.0 - 08/20 [facility] 75.0 /2014 [facility] HEMATOLOGY Lymphocytes 16.4 % 20.0 - 08/20 [place] 40.0 /2014 [facility] HEMATOLOGY Monocytes 7.4 % 2.0 - 12.0 08/[address] URINE AND UA <=1.0 0.1 - 1.0 08/20 [facility] Urobilinogen mg/dL /2014 [facility] URINE AND UA Sq Epi None Seen 08/20 [facility] /[address] [place] [address] URINE AND UA Mucus Few /LPF None Seen 08/20 [facility] STOOL /LPF /[address] [place] [address] URINE AND UA Amorph Occasional None Seen 08/20 [facility] [place] /HPF /HPF /2014 [facility] URINE AND UA Leuk Est Moderate Negative 08/20 [facility] *ABN* Center (08/20/15 2:54 AM) URINE AND UA Blood Negative Negative 08/20 [facility] /2014 [facility] (08/20/15 2:54 AM) [place] URINE AND UA Nitrite Negative Negative 08/20 [facility] (08/20/15 2:54 AM) [place] URINE AND UA Bacteria Occasional None Seen 08/20 [facility] STOOL /HPF /HPF /[address] [place] [address] URINE AND UA RBC 5 /HPF 0 - 2 08/20 [facility] /2014 [facility] URINE AND UA WBC 20 /HPF 0 - 5 08/20 [facility] /2014 [facility] URINE AND UA Glucose Negative Negative 08/20 [facility] mg/dL mg/dL /2014 [facility] URINE AND UA Protein Negative Negative 08/20 [facility] mg/dL mg/dL [facility] [facility] URINE AND UA Ketones Negative Negative 08/20 [facility] mg/dL mg/dL /2014 [facility] URINE AND UA pH 7.5 5.0 - 8.0 08/20 [facility] URINE AND UA Bili Negative Negative 08/20 [facility] *NA* [place] (08/20/15 2:54 AM) URINE AND UA Color Yellow Yellow 08/20 [facility] *NA* [place] (08/20/15 2:54 AM) URINE AND UA Turbidity Clear Clear 08/20 [facility] (08/20/15 2:54 AM) [place] URINE AND UA Spec Grav 1.006 <=1.030 08/20 [facility] Abdomen AP Abdomen AP EXAM: XR ABDOMEN 1 VIEW 08/19 - [facility] DX - [facility] This report was dictated by a Pv Design And Installation Technician/Fellow. I have personally reviewed the images as Center well as the Resident's interpretation and agree with the findings. DATE: 08/19/2015 at 2208 hours. Read by: Angel Concepcion MD Resident: Angel Concepcion MD Dictated Date/time: 08/20/15 10:27 Electronically [...] B/C Ratio 15 6 - 25 08/17 [facility] CHEM PANEL AGAP 8.9 meq/L 10.0 - 08/17 [facility] 20.0 [facility] CHEM PANEL Globulin 3.2 g/dL 2.0 - 4.0 08/17 [facility] [place] [address] CHEM PANEL A/G Ratio 1.1 0.7 - 1.6 08/[address] CHEM PANEL eGFR 61 08/17 Result Comment: The eGFR is calculated using the CKD-EPI formula. In most young, healthy individuals the eGFR will be >90 mL/ min/1.73m2. The eGFR declines with age. An eGFR of 60-89 may be normal in [facility] mL/min/1.7 some populations, particularly the elderly, for whom the CKD-EPI formula has not been extensively validated. Use of the eGFR is not recommended in the following populations: [address] Individuals with unstable creatinine concentrations, including [...] Lvl 10.2 mg/dL 8.5 - 10.5 08/[address] CHEM PANEL Chloride Lvl 102 meq/L 95 - 109 08/[address] CHEM PANEL Potassium 4.9 meq/L 3.5 - 5.1 08/[address] CHEM PANEL BUN 16 mg/dL 7 - 22 08/[address] CHEM PANEL CO2 31 meq/L 24 - 32 08/[address] CHEM PANEL Sodium Lvl 137 meq/L 135 - 145 08/[address] CHEM PANEL Creatinine 1.1 mg/dL 0.5 - 1.4 08/17 [facility] [place] [address] CHEM PANEL Glucose Lvl 102 mg/dL 70 - 99 08/[address] CHEM PANEL ALT 10 unit/L 0 - 65 08/[address] CHEM PANEL Bili Total 0.4 mg/dL 0.2 - 1.3 08/[address] CHEM PANEL Alk Phos 109 unit/L 39 - 136 08/[address] CHEM PANEL AST 19 unit/L 0 - 37 08/[address] CHEM PANEL Albumin Lvl 3.5 g/dL 3.5 - 5.0 08/[address] CHEM PANEL Total 6.7 g/dL 6.4 - 8.4 08/17 [facility] CHEM PANEL Lipase Lvl 147 unit/L 73 - 393 08/17 [facility] HEMATOLOGY Basophils # 0.1 K/CMM 0.0 - 0.2 08/17 [facility] HEMATOLOGY Eosinophils 0.2 K/CMM 0.0 - 0.5 08/17 [place] # /2014 [facility] HEMATOLOGY Segs-Bands # 5.4 K/CMM 1.5 - 8.1 08/17 [facility] HEMATOLOGY Basophils 1.0 % 0.0 - 1.0 08/17 [facility] HEMATOLOGY Monocytes # 0.5 K/CMM 0.0 - 0.8 08/17 [facility] HEMATOLOGY Lymphocytes 1.1 K/CMM 1.0 - 5.5 08/17 /2014 [facility] HEMATOLOGY Eosinophils 2.4 % 0.0 - 4.0 08/17 [facility] HEMATOLOGY Monocytes 7.5 % 2.0 - 12.0 08/17 [facility] HEMATOLOGY Lymphocytes 15.1 % 20.0 - 08/17 [place] 40.0 [facility] HEMATOLOGY Segs 74.0 % 45.0 - 08/17 75.0 [facility] HEMATOLOGY RDW 14.0 % 11.5 - 08/17 [place] 14. [facility] HEMATOLOGY MCHC 33.8 g/dL 32.0 - 08/17 36.0 [facility] HEMATOLOGY WBC 7.3 K/CMM 3.7 - 10.4 08/17 [facility] HEMATOLOGY MCH 32.9 pg 27.0 - 08/17 [place] 31.0 [facility] HEMATOLOGY Hct 35.4 % 42.0 - 08/17 [place] 54.0 [facility] HEMATOLOGY MCV 97.3 fL 80.0 - 08/17 [place] 94.0 [facility] HEMATOLOGY Platelet 222 K/CMM 133 - 450 08/17 [facility] HEMATOLOGY MPV 8.2 fL 7.4 - 10.4 08/17 [facility] HEMATOLOGY Hgb 12.0 g/dL 14.0 - 08/17 [place] 18.0 [facility] HEMATOLOGY RBC 3.64 M/CMM 4.70 - 08/17 [facility] 6.10 [facility] URINE AND UA Sq Epi None Seen Few 08/17 [facility] STOOL [facility] (08/17/15 12:45 PM) [place] URINE AND UA WBC >100 /HPF None Seen 08/17 [facility] /HPF [facility] URINE AND UA Bacteria Moderate None Seen 08/17 [facility] /HPF /HPF /2014 [facility] URINE AND UA RBC 3-5 /HPF 0 - 2 08/17 [facility] URINE AND UA Turbidity Cloudy Clear 08/17 [facility] *ABN* [place] (08/17/15 12:45 PM) URINE AND UA pH 7.5 5.0 - 8.0 08/17 [facility] URINE AND UA Glucose Negative Negative 08/17 [facility] (08/17/15 12:45 PM) [place] URINE AND UA Protein Negative Negative 08/17 [facility] (08/17/15 12:45 PM) [place] URINE AND UA Spec Grav 1.010 <=1.030 08/17 [facility] URINE AND UA Color Yellow Yellow 08/17 [facility] *NA* [place] (08/17/15 12:45 PM) URINE AND UA Blood Negative Negative 08/17 [facility] (08/17/15 12:45 PM) [place] URINE AND UA Bili Negative Negative 08/17 [facility] *NA* [place] (08/17/15 12:45 PM) URINE AND UA Ketones Negative Negative 08/17 [facility] *NA* [place] (08/17/15 12:45 PM) URINE AND UA 0.2 EU/dL 0.1 - 1.0 08/17 [facility] Urobilinogen /2014 [facility] URINE AND UA Leuk Est Large Negative 08/17 [facility] *ABN* [place] (08/17/15 12:45 PM) URINE AND UA Nitrite Negative Negative 08/17 [facility] (08/17/15 12:45 PM) [place] ED ED EXAM: CT ABDOMEN AND PELVIS WITH IV CONTRAST 08/17 - [facility] Abdomen/Pel Abdomen/Pelv /2014 - Medical vis IV is IV This report was dictated by a Pv Design And Installation Technician/ Fellow. I have personally reviewed the images as Center contrast contrast well as the Resident's interpretation and agree with the findings. only CT only CT DATE: 08/10/2015 at 1312 hours. Read by: Angel Concepcion MD Resident: Angel Concepcion MD Dictated Date/time: 08/18/15 08:34 Electronically [...] to characterize hypodense lesions within the liver. Chest 1view Chest 1view EXAM: XR CHEST 1 VIEW 08/17 [facility] DX DX /2014 - Medical This report was dictated by a Pv Design And Installation Technician/Fellow. I have personally reviewed the images as [...] may represent a small right pleural effusion. Abdomen AP Abdomen AP EXAM: XR ABDOMEN 08/17 [facility] DX DX /2014 - Medical 2. 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 This report was dictated by a Pv Design And Installation Technician/Fellow. I have personally reviewed the images as Center well as the Resident's interpretation and agree with the findings. Read by: Gala Velazquez MD Resident: Gala Velazquez MD Dictated Date/time: 09/27/15 12:36 DATE: 08/17/2015 at 1222 hours Electronically [...] gas pattern. 2. Thoracolumbar degenerative disc disease. CHEM PANEL Phosphorus 3.6 mg/dL 2.5 - 4.5 08/[address] CHEM PANEL Magnesium 2.2 mg/dL 1.8 - 2.4 08/[address] ELECTROLYTE Sodium Lvl 139 meq/L 135 - 145 08/[address] ELECTROLYTE Creatinine 0.9 mg/dL 0.5 - 1.4 08/[address] ELECTROLYTE CO2 25 meq/L 24 - 32 08/[address] ELECTROLYTE Chloride Lvl 105 meq/L 95 - 109 08/[address] ELECTROLYTE Potassium 4.3 meq/L 3.5 - 5.1 08/[address] ELECTROLYTE eGFR 78 08/14 Result Comment: The eGFR is calculated using the CKD-EPI formula. In most young, healthy individuals the eGFR will be >90 mL/ min/1.73m2. The eGFR declines with age. An eGFR of 60-89 may be normal in [facility] mL/min/1.7 /2014 some populations, particularly the elderly, for whom the CKD-EPI formula has not been extensively validated. Use of the eGFR is not recommended in the following populations: [address] Individuals with unstable creatinine concentrations, including [...] Lvl 8.9 mg/dL 8.5 - 10.5 08/14 [facility] ELECTROLYTE AGAP 13.3 meq/L 10.0 - 08/14 [facility] . [facility] ELECTROLYTE Glucose Lvl 112 mg/dL 70 - 99 08/14 [facility] ELECTROLYTE BUN 16 mg/dL - 08/14 [facility] ANEMIA Vitamin B12 1089 pg/mL 254 - 1320 08/13 [facility] CHEM PANEL Phosphorus 3.0 mg/dL 2.5 - 4.5 08/13 [facility]2014 [facility] CHEM PANEL Magnesium 2.0 mg/dL 1.8 - 2.4 08/13 [facility] CHEM PANEL eGFR 81 08/13 Result Comment: The eGFR is calculated using the CKD-EPI formula. In most young, healthy individuals the eGFR will be >90 mL/ min/1.73m2. The eGFR declines with age. An eGFR of 60-89 may be normal in [facility] mL/min/1.7 some populations, particularly the elderly, for whom the CKD-EPI formula has not been extensively validated. Use of the eGFR is not recommended in the following populations: [address] Individuals with unstable creatinine concentrations, including [...] Lvl 100 mg/dL 70 - 99 08/13 [facility] CHEM PANEL Creatinine 0.8 mg/dL 0.5 - 1.4 08/13 [facility] CHEM PANEL BUN 13 mg/dL - 08/13 [facility]2014 [facility] CHEM PANEL Chloride Lvl 107 meq/L 95 - 109 08/13 [facility]2014 [facility] CHEM PANEL CO2 20 meq/L 24 - 32 08/13 [facility]2014 [facility] CHEM PANEL Calcium Lvl 8.2 mg/dL 8.5 - 10.5 08/[address] CHEM PANEL AGAP 13.4 meq/L 10.0 - 08/13 [facility] CHEM PANEL Potassium 4.4 meq/L 3.5 - 5.1 08/13 [facility] CHEM PANEL Sodium Lvl 136 meq/L 135 - 145 08/13 2014 [facility] CHEM PANEL Phosphorus 3.3 mg/dL 2.5 - 4.5 08/12 [facility]2014 [facility] CHEM PANEL eGFR 81 08/12 Result Comment: The eGFR is calculated using the CKD-EPI formula. In most young, healthy individuals the eGFR will be >90 mL/ min/1.73m2. The eGFR declines with age. An eGFR of 60-89 may be normal in [facility] mL/min/1. some populations, particularly the elderly, for whom the CKD-EPI formula has not been extensively validated. Use of the eGFR is not recommended in the following populations: [address] Individuals with unstable creatinine concentrations, including [...] CHEM PANEL BUN 11 mg/dL 7 - 08/12 [facility] CHEM PANEL Creatinine 0.8 mg/dL 0.5 - 1.4 08/12 [facility] CHEM PANEL Glucose Lvl 113 mg/dL 70 - 99 08/12 2014 [facility] CHEM PANEL Potassium 4.1 meq/L 3.5 - 5.1 08/12 [facility] CHEM PANEL Chloride Lvl 106 meq/L 95 - 109 08/12 [facility]2014 [facility] CHEM PANEL CO2 25 meq/L 24 - 32 08/[address] CHEM PANEL Calcium Lvl 8.6 mg/dL 8.5 - 10.5 08/12 [facility]2014 [facility] CHEM PANEL Sodium Lvl 139 meq/L 135 - 145 08/12 [facility] CHEM PANEL AGAP 12.1 meq/L 10.0 - 08/12 [facility] . [facility] CHEM PANEL Magnesium 1.9 mg/dL 1.8 - 2.4 08/12 [facility] Lvl /2014 [facility] HEMATOLOGY MCH 32.0 pg 27.0 - 08/12 31.0 [facility] HEMATOLOGY MCV 98.6 fL 80.0 - 08/12 94.0 /2014 [facility] HEMATOLOGY MCHC 32.4 g/dL 32.0 - 08/12 36.0 /2014 [facility] HEMATOLOGY RDW 13.7 % 11.5 - 08/12 14.5 [facility] HEMATOLOGY WBC 6.5 K/CMM 3.7 - 10.4 08/12 [facility] HEMATOLOGY RBC 3.42 M/CMM 4.70 - 08/12 6.10 [facility] HEMATOLOGY Hct 33.7 % 42.0 - 08/12 54.0 [facility] HEMATOLOGY Hgb 10.9 g/dL 14.0 - 08/12 18.0 [facility] HEMATOLOGY MPV 8.5 fL 7.4 - 10.4 08/12 [facility] HEMATOLOGY Platelet 179 K/CMM 133 - 450 08/12 [facility] HEMATOLOGY Basophils # 0.1 K/CMM 0.0 - 0.2 08/12 [facility] HEMATOLOGY Basophils 1.0 % 0.0 - 1.0 08/12 [facility] HEMATOLOGY Eosinophils 4.2 % 0.0 - 4.0 08/12 [facility] HEMATOLOGY Eosinophils 0.3 K/CMM 0.0 - 0.5 08/12 [facility] HEMATOLOGY Segs-Bands # 4.7 K/CMM 1.5 - 8.1 08/12 [facility] HEMATOLOGY Lymphocytes 1.1 K/CMM 1.0 - 5.5 08/12 /2014 [facility] HEMATOLOGY Monocytes # 0.4 K/CMM 0.0 - 0.8 08/12 [facility] HEMATOLOGY Lymphocytes 16.7 % 20.0 - 08/12 [place] 40.0 [facility] HEMATOLOGY Monocytes 6.0 % 2.0 - 12.0 08/12 [facility] HEMATOLOGY Segs 72.1 % 45.0 - 08/12 [place] 75.0 [facility] HEMATOLOGY Platelet 229 K/CMM 133 - 450 08/11 [facility] HEMATOLOGY WBC 10.6 K/CMM 3.7 - 10.4 08/11 [facility] HEMATOLOGY Hct 37.5 % 42.0 - 08/11 [place] 54.0 /2014 [facility] HEMATOLOGY Hgb 12.7 g/dL 14.0 - 08/11 18.0 [facility] HEMATOLOGY MCV 96.6 fL 80.0 - 08/11 [place] 94.0 /2014 [facility] HEMATOLOGY RBC 3.88 M/CMM 4.70 - 08/11 [place] 6.10 [facility] HEMATOLOGY RDW 13.4 % 11.5 - 08/11 14. [facility] HEMATOLOGY MCHC 33.7 g/dL 32.0 - 08/11 36.0 [facility] HEMATOLOGY MCH 32.6 pg 27.0 - 08/11 31.0 [facility] HEMATOLOGY MPV 9.0 fL 7.4 - 10.4 08/11 [facility] HEMATOLOGY WBC 5.8 K/CMM 3.7 - 10.4 08/09 [facility] HEMATOLOGY RBC 3.44 M/CMM 4.70 - 08/09 [place] 6.10 [facility] HEMATOLOGY Hgb 11.2 g/dL 14.0 - 08/09 18.0 [facility] HEMATOLOGY Hct 32.6 % 42.0 - 08/09 [place] 54.0 [facility] HEMATOLOGY MCV 94.8 fL 80.0 - 08/09 [place] 94.0 [facility] HEMATOLOGY MCH 32.7 pg 27.0 - 08/09 [place] 31.0 [facility] HEMATOLOGY Platelet 157 K/CMM 133 - 450 08/09 [facility] HEMATOLOGY MCHC 34.5 g/dL 32.0 - 08/09 [place] 36.0 [facility] HEMATOLOGY RDW 13.2 % 11.5 - 08/09 [place] 14. [facility] HEMATOLOGY MPV 8.7 fL 7.4 - 10.4 08/09 [facility] MOLECULAR C difficile Negative Negative 08/09 [facility] DIAGNOSTIC DNA /2014 Medical (08/09/15 6:48 AM) Center CHEM PANEL Lactic Acid 1.1 mMol/L 0.5 - 2.2 08/06 [facility] /2015 [facility] Small bowel Small bowel EXAM: SMALL BOWEL SERIES 08/05 - [facility] series DX series - [facility] This report was dictated by a Pv Design And Installation Technician/Fellow. I have personally reviewed the images as Center well as the Resident's interpretation and agree with the findings. DATE: 08/05/2015 at 1530 hours. Read by: Maxx Haddad MD Resident: Maxx Haddad MD Dictated Date/time: 08/06/15 10:36 Electronically Signed by: Karthik Warner MD 08/06/15 11:50 FINAL REPORT INDICATION: Abdominal pain. COMPARISON: 12/19/2014. TECHNIQUE Frontal mail courier and multiple spot post contrast radiographs were obtained. Approximate 300 mL of water soluble contrast was given. FINDINGS: The mail courier radiographs demonstrates a nasogastric tube with tip [...] AP EXAM: XR ABDOMEN 1 VIEW 08/03 - [facility] DX /2014 - [facility] DATE: Aug 03, 2015 10:50:00 PM [...] AP EXAM: XR ABDOMEN 1 VIEW 08/03 [facility] DX /2014 - [facility] DATE: Aug 03, 2015 12:30:00 PM [...] Acid 1.1 mMol/L 0.5 - 2.2 08/03 [facility] Lvl /2014 [facility] HEMATOLOGY Segs-Bands # 6.6 K/CMM 1.5 - 8.1 08/[address] HEMATOLOGY Monocytes # 0.3 K/CMM 0.0 - 0.8 08/03 [facility] /[address] [place] [address] HEMATOLOGY Lymphocytes 0.4 K/CMM 1.0 - 5.5 08/03 [facility] # /2014 [facility] HEMATOLOGY Eosinophils 0.1 % 0.0 - 4.0 08/03 [facility] /[address] [place] [address] HEMATOLOGY Monocytes 4.7 % 2.0 - 12.0 08/03 [facility] /[address] [place] [address] HEMATOLOGY Lymphocytes 6.0 % 20.0 - 08/03 [facility] 40.0 [facility] HEMATOLOGY Segs 88.8 % 45.0 - 08/03 [facility] 75.0 [facility] HEMATOLOGY Basophils 0.4 % 0.0 - 1.0 08/03 [facility] /[address] [place] [address] URINE AND UA Hyal Cast 0-2 0 - 2 08/02 [facility] /[address] [place] [address] (08/02/15 6:38 PM) [place] URINE AND UA Amorph Few /HPF None Seen 08/02 [facility] [place] /HPF /[address] [place] [address] URINE AND UA WBC 0-2 /HPF None Seen 08/02 [facility] /HPF /2014 [facility] URINE AND UA RBC 6-10 /HPF 0 - 2 08/02 [facility] STOOL [facility] URINE AND UA Bacteria Few /HPF None Seen 08/02 [facility] /HPF /2014 [facility] URINE AND UA Sq Epi Few /LPF Few /LPF 08/02 [facility] URINE AND UA Blood Negative Negative 08/02 [facility] (08/02/15 6:38 PM) [place] URINE AND UA 0.2 EU/dL 0.1 - 1.0 08/02 [facility] Urobilinogen /2014 [facility] URINE AND UA Leuk Est Negative Negative 08/02 [facility] (08/02/15 6:38 PM) [place] URINE AND UA Nitrite Negative Negative 08/02 [facility] (08/02/15 6:38 PM) [place] URINE AND UA Bili Negative Negative 08/02 [facility] *NA* [place] (08/02/15 6:38 PM) URINE AND UA Ketones Negative Negative 08/02 [facility] *NA* [place] (08/02/15 6:38 PM) URINE AND UA Color Dark Yellow Yellow 08/02 [facility] (08/02/15 6:38 PM) [place] URINE AND UA Glucose Negative Negative 08/02 [facility] (08/02/15 6:38 PM) [place] URINE AND UA Protein Trace Negative 08/02 [facility] *ABN* [place] (08/02/15 6:38 PM) URINE AND UA Turbidity Slight Cloudy Clear 08/02 [facility] (08/02/15 6:38 PM) [place] URINE AND UA Spec Grav 1.010 <=1.030 08/02 [facility] URINE AND UA pH 8.0 5.0 - 8.0 08/02 [facility] CARDIAC Troponin-I 0.10 ng/mL 0.00 - 08/02 [facility] ENZYMES 0. [facility] CHEM PANEL Lactic Acid 3.0 mmol/L 0.5 - 2.2 08/02 [facility] CHEM PANEL A/G Ratio 1.1 0.7 - 1.6 08/02 [facility] CHEM PANEL Globulin 3.3 g/dL 2.0 - 4.0 08/02 [facility] CHEM PANEL B/C Ratio 17 6 - 25 08/02 [facility] CHEM PANEL Total 6.8 g/dL 6.4 - 8.4 08/02 Protein [facility] CHEM PANEL Albumin Lvl 3.5 g/dL 3.5 - 5.0 08/02 [facility] CHEM PANEL ALT 14 unit/L 0 - 65 08/02 [facility] CHEM PANEL AST 22 unit/L 0 - 37 08/02 [facility] CHEM PANEL Bili Total 0.9 mg/dL 0.2 - 1.3 08/02 [facility] CHEM PANEL Alk Phos 91 unit/L 39 - 136 08/02 [facility] CHEM PANEL Lipase Lvl 42 unit/L 73 - 393 08/02 [facility] HEMATOLOGY Lymphocytes 0.7 K/CMM 1.0 - 5.5 08/02 [facility] # /2014 [facility] HEMATOLOGY Monocytes # 0.6 K/CMM 0.0 - 0.8 08/02 [facility] HEMATOLOGY Basophils 0.2 % 0.0 - 1.0 08/02 [facility] HEMATOLOGY Eosinophils 0.2 % 0.0 - 4.0 08/[address] HEMATOLOGY Segs-Bands # 8.6 K/CMM 1.5 - 8.1 08/02 [facility] HEMATOLOGY Lymphocytes 7.0 % 20.0 - 08/02 40.0 [facility] HEMATOLOGY Segs 86.7 % 45.0 - 08/02 75.0 [facility] HEMATOLOGY Monocytes 5.9 % 2.0 - 12.0 08/02 [facility] HEMATOLOGY INR 1.10 0.85 - 08/02 [facility] 1.17 [facility] HEMATOLOGY PT 14.5 s 12.0 - 08/02 [facility] 14.7 /2014 [facility] Abdomen/Pel Abdomen/Pelv EXAM: CT ABDOMEN AND PELVIS WITHOUT IV CONTRAST 08/02 - [facility] vis wo IV is wo IV /2014 - Medical contrast CT contrast CT This report was dictated by a Pv Design And Installation Technician/Fellow. I have personally reviewed the images as [...] CT would be helpful for further evaluation. Brain wo Brain wo EXAM: CT HEAD WITHOUT CONTRAST 08/02 [facility] contrast CT contrast CT /[address] [facility] INDICATION: Confusion Read by: Estee Nunez [...] is intact. IMPRESSION: No acute intracranial abnormality. Small bowel Small bowel EXAM: SMALL BOWEL SERIES 12/19 [facility] series DX series DX /2014 [facility] INDICATION: Intestinal obstruction Read by: Rosa Garcia MD Dictated Date/time: 12/19/14 16:58 Electronically Signed by: Rosa Garcia MD 12/19/14 17:04 FINAL REPORT TECHNIQUE: The patient ingested oral barium without difficulty, serial KUBs were obtained and the transit of barium was followed from the stomach into the colon. Fluoroscopy time. 0.7 minutes. FINDINGS: The mail courier shows presence of cholecystectomy clips, splenic artery [...] Stomach Stomach EXAM: GASTRIC EMPTYING STUDY: 11/18 [facility] [place] emptying - [facility] INDICATION: Vomiting. Read by: Gabriel Dawson [...] emptying. CHEMISTRY Troponin-I null 0.00 - 01/02 Normal [facility] 0.40 /2012 [facility] CHEMISTRY Troponin-T null 0.000 - 01/02 [facility] 0.100 [facility] CHEMISTRY Total CK 39 unit/L 12 - 191 01/02 Normal [facility]2012 [facility] CHEMISTRY Phosphorus 1.9 mg/dL 2.5 - 4.5 01/02 [facility]2012 [facility] CHEMISTRY Magnesium 1.5 mg/dL 1.8 - 2.4 01/02 [facility] CHEMISTRY AGAP 17.5 meq/L 10.0 - 01/02 Normal [facility] 20.0 [facility] CHEMISTRY eGFR 69 01/02 NA 1Result Comment: The eGFR is calculated using the CKD-EPI formula. In most young, healthy individuals the eGFR will be > 90 mL/min/1.73m2. The eGFR declines with age. An eGFR of 60-89 may be normal in [facility] mL/min/1.7 some populations, particularly the elderly, for whom the CKD-EPI formula has not been extensively validated. Use of the eGFR is not recommended in the following populations: [address] Individuals with unstable creatinine concentrations, including [...] 102 meq/L 95 - 109 01/02 Normal [facility] CHEMISTRY Potassium 3.5 meq/L 3.5 - 5.1 01/02 Normal [facility] CHEMISTRY Calcium Lvl 8.2 mg/dL 8.5 - 10.5 01/02 LOW [facility] CHEMISTRY CO2 23 meq/L 24 - 32 01/02 LOW [facility] CHEMISTRY BUN 8 mg/dL 7 - 22 01/02 Normal [facility] CHEMISTRY Sodium Lvl 139 meq/L 135 - 145 01/02 Normal [facility] CHEMISTRY Creatinine 1.0 mg/dL 0.5 - 1.4 01/02 Normal [facility] CHEMISTRY Glucose Lvl 120 mg/dL 70 - 99 01/02 HI 4Interpretive Data: Adult reference range values reflect the clinical guidelines of the [place] [employer]. [facility] HEMATOLOGY Monocytes # 0.5 K/CMM 0.0 - 0.8 01/02 Normal [facility] HEMATOLOGY Eosinophils 0.3 K/CMM 0.0 - 0.5 01/02 Normal [facility] HEMATOLOGY Lymphocytes 0.7 K/CMM 1.0 - 5.5 01/02 LOW [facility] HEMATOLOGY Monocytes 8.0 % 2.0 - 12.0 01/02 Normal [facility] HEMATOLOGY Eosinophils 4.3 % 0.0 - 4.0 01/02 [facility] /2012 [facility] HEMATOLOGY Basophils 0.3 % 0.0 - 1.0 01/02 [facility] /2012 [facility] HEMATOLOGY Segs-Bands # 5.3 K/CMM 1.5 - 8.1 01/02 Normal /2012 [facility] HEMATOLOGY Lymphocytes 10.1 % 20.0 - 01/[address] [facility] [place] 40.0 /2012 [facility] HEMATOLOGY Segs 77.3 % 45.0 - 02 [facility] [place] 75.0 /2012 [facility] HEMATOLOGY MCHC 35.2 g/dL 32.0 - 01/02 [facility] 36.0 [facility] HEMATOLOGY Platelet 135 K/CMM 133 - 450 01/02 [facility] /2012 [facility] HEMATOLOGY MPV 8.0 fL 7.4 - 10.4 01/02 [facility] /2012 [facility] HEMATOLOGY RDW 12.9 % 11.5 - 01/02 [facility] 14.5 [facility] HEMATOLOGY MCV 92.5 fL 80.0 - 01/02 [facility] 94.0 [facility] HEMATOLOGY MCH 32.6 pg 27.0 - 01/02 [facility] 31.0 /2012 [facility] HEMATOLOGY RBC 4.00 M/CMM 4.70 - 01/02 [facility] 6.10 /2012 [facility] HEMATOLOGY WBC 6.8 K/CMM 3.7 - 10.4 01/02 [facility] HEMATOLOGY Hct 37.0 % 42.0 - 01/02 [facility] 54.0 /2012 [facility] HEMATOLOGY Hgb 13.0 g/dL 14.0 - 01/02 [facility] 18.0 [facility] CHEMISTRY Magnesium 1.7 mg/dL 1.8 - 2.4 01/01 [facility] Lvl [facility] CHEMISTRY Phosphorus 2.6 mg/dL 2.5 - 4.5 01/01 Normal [facility] CHEMISTRY eGFR 79 01/01 NA 2Result Comment: The eGFR is calculated using the CKD-EPI formula. In most young, healthy individuals the eGFR will be > 90 mL/min/1.73m2. The eGFR declines with age. An eGFR of 60-89 may be normal in [facility] mL/min/1.7 some populations, particularly the elderly, for whom the CKD-EPI formula has not been extensively validated. Use of the eGFR is not recommended in the following populations: [place] [address] Center Individuals with unstable creatinine concentrations, including [...] Lvl 8.0 mg/dL 8.5 - 10.5 01/01 LOW [facility] CHEMISTRY AGAP 14.4 meq/L 10.0 - 01/01 Normal [facility] 20.0 [facility] CHEMISTRY Glucose Lvl 99 mg/dL 70 - 99 01/01 Normal 5Interpretive Data: Adult reference range values reflect the clinical guidelines of the [place] [employer]. [facility] CHEMISTRY Sodium Lvl 138 meq/L 135 - 145 01/01 Normal [facility] CHEMISTRY Creatinine 0.9 mg/dL 0.5 - 1.4 01/01 Normal [facility] CHEMISTRY BUN 11 mg/dL 7 - 22 01/01 Normal [facility] CHEMISTRY CO2 26 meq/L 24 - 32 01/01 Normal [facility] CHEMISTRY Chloride Lvl 101 meq/L 95 - 109 01/01 Normal [facility] CHEMISTRY Potassium 3.4 meq/L 3.5 - 5.1 01/01 LOW [facility] HEMATOLOGY Eosinophils 0.2 K/CMM 0.0 - 0.5 01/01 Normal [facility] HEMATOLOGY Monocytes # 0.6 K/CMM 0.0 - 0.8 01/01 Normal [facility] HEMATOLOGY Lymphocytes 0.9 K/CMM 1.0 - 5.5 01/01 LOW [facility] HEMATOLOGY Segs-Bands # 4.5 K/CMM 1.5 - 8.1 01/01 Normal [facility] HEMATOLOGY Basophils 0.4 % 0.0 - 1.0 01/01 Normal [facility] HEMATOLOGY Eosinophils 3.6 % 0.0 - 4.0 01/01 Normal [facility] HEMATOLOGY Monocytes 9.4 % 2.0 - 12.0 01/01 Normal /2012 [facility] HEMATOLOGY Lymphocytes 13.8 % 20.0 - 01/01 [facility] 40.0 /2012 [facility] HEMATOLOGY Segs 72.8 % 45.0 - 01/01 [facility] 75.0 /2012 [facility] HEMATOLOGY RDW 12.9 % 11.5 - 01/01 Normal [facility] 14.5 /2012 [facility] HEMATOLOGY MCHC 35.5 g/dL 32.0 - 01/01 Normal [facility] 36.0 /2012 [facility] HEMATOLOGY MCH 32.6 pg 27.0 - 01/01 [place] 31.0 /2012 [facility] HEMATOLOGY MCV 91.9 fL 80.0 - 01/01 [facility] 94.0 /2012 [facility] HEMATOLOGY Hct 35.8 % 42.0 - 01/01 [facility] 54.0 [facility] HEMATOLOGY RBC 3.90 M/CMM 4.70 - 01/01 [facility] 6.10 /2012 [facility] HEMATOLOGY WBC 6.2 K/CMM 3.7 - 10.4 01/01 Normal /2012 [facility] HEMATOLOGY Hgb 12.7 g/dL 14.0 - 01/01 [facility] 18.0 /2012 [facility] HEMATOLOGY MPV 8.0 fL 7.4 - 10.4 01/01 [facility] HEMATOLOGY Platelet 124 K/CMM 133 - 450 01/[address] [facility] CHEMISTRY eGFR 50 12/31 NA 3Result Comment: The eGFR is calculated using the CKD-EPI formula. In most young, healthy individuals the eGFR will be > 90 mL/min/1.73m2. The eGFR declines with age. An eGFR of 60-89 may be normal in [facility] mL/min/1.7 /2012 some populations, particularly the elderly, for whom the CKD-EPI formula has not been extensively validated. Use of the eGFR is not recommended in the following populations: [place] [address] Center Individuals with unstable creatinine concentrations, including [...] 3.6 meq/L 3.5 - 5.1 12/31 Normal [facility] CHEMISTRY Chloride Lvl 96 meq/L 95 - 109 12/31 Normal [facility] CHEMISTRY CO2 29 meq/L 24 - 32 12/31 Normal [facility] CHEMISTRY Creatinine 1.3 mg/dL 0.5 - 1.4 12/31 Normal [facility] CHEMISTRY Calcium Lvl 8.6 mg/dL 8.5 - 10.5 12/31 Normal [facility] CHEMISTRY BUN 14 mg/dL 7 - 22 12/31 Normal [facility] CHEMISTRY Glucose Lvl 119 mg/dL 70 - 99 12/31 HI 6Interpretive Data: Adult reference range values reflect the clinical guidelines of the [place] [employer]. [facility] CHEMISTRY AGAP 14.6 meq/L 10.0 - 12/31 Normal [facility] 20.0 [facility] CHEMISTRY Magnesium 2.1 mg/dL 1.8 - 2.4 12/31 Normal [facility] CHEMISTRY Phosphorus 3.5 mg/dL 2.5 - 4.5 12/31 Normal [facility] HEMATOLOGY Hct 35.7 % 42.0 - 02 LOW [facility] 54.0 [facility] HEMATOLOGY MCV 92.6 fL 80.0 - 12/31 Normal [facility] 94.0 [facility] HEMATOLOGY Hgb 12.6 g/dL 14.0 - 12/31 [facility] 18.0 [facility] HEMATOLOGY Platelet 124 K/CMM 133 - 450 12/31 LOW [facility] HEMATOLOGY MPV 7.7 fL 7.4 - 10.4 12/31 Normal [facility] HEMATOLOGY RDW 13.0 % 11.5 - 02 Normal [facility] 14.5 [facility] HEMATOLOGY MCH 32.8 pg 27.0 - 02 HI [facility] 31.0 [facility] HEMATOLOGY MCHC 35.4 g/dL 32.0 - 02 Normal [facility] 36.0 [facility] HEMATOLOGY RBC 3.85 M/CMM 4.70 - [address] [facility] [place] 6.10 Medical Center HEMATOLOGY WBC 7.2 K/CMM 3.7 - 10.4 02/ Normal /2012 [facility] HEMATOLOGY Segs 76.1 % 45.0 - 02 HI [place] 75.0 /2012 [facility] HEMATOLOGY Lymphocytes 13.8 % 20.0 - 02 LOW [place] 40.0 /2012 [facility] HEMATOLOGY Eosinophils 1.7 % 0.0 - 4.0 / Normal [facility] HEMATOLOGY Monocytes 8.1 % 2.0 - 12.0 12/31 Normal [facility] HEMATOLOGY Basophils 0.3 % 0.0 - 1.0 / Normal [facility] HEMATOLOGY Eosinophils 0.1 K/CMM 0.0 - 0.5 12/31 Normal [facility] # /2012 [facility] HEMATOLOGY Lymphocytes 1.0 K/CMM 1.0 - 5.5 12/31 Normal [facility] # /2012 [facility] HEMATOLOGY Segs-Bands # 5.5 K/CMM 1.5 - 8.1 12/31 Normal [facility] HEMATOLOGY Monocytes # 0.6 K/CMM 0.0 - 0.8 12/31 Normal [facility] CHEMISTRY Troponin-I null 0.00 - 12/30 Normal [facility] 0.40 /2012 [facility] CHEMISTRY Total CK 57 unit/L 12 - 191 12/30 Normal [facility] CHEMISTRY Troponin-T null 0.000 - 12/30 Normal [facility] 0.100 /2012 [facility] CHEMISTRY pO2 Art 65 mm[Hg] 80 - 100 02 LOW [facility] CHEMISTRY HCO3 Art 39 mMol/L 22 - 26 12/30 [facility] CHEMISTRY BE Art 14 mMol/L -2-2 - 2 12/30 HI [facility] CHEMISTRY O2 Sat Art 94.0 % 95.0 - 12/30 LOW [facility] 100.0 [facility] CHEMISTRY pH Art 7.50 7.35 - 02 [facility] 7.45 [facility] CHEMISTRY pCO2 Art 50 mm[Hg] 35 - 45 02 [facility] CHEMISTRY Lactic Acid 2.0 mMol/L 0.5 - 2.2 12/30 Normal [facility] Lvl [facility] BLOOD BANK Antibody Negative 12/30 Normal [facility] RESULTS [facility] (12/30/2012 05:40:00) Center BLOOD BANK ABO/Rh O NEG 12/30 Unknown [facility] URINALYSIS UA Amorph Many /HPF None Seen 12/30 [facility] [place] *ABN* Center (12/29/2012 23:37:00) URINALYSIS UA Leuk Est Negative Negative 12/30 Normal [facility] (12/29/2012 23:37:00) Center URINALYSIS Micro? Performed 12/30 Normal [facility] (12/29/2012 23:37:00) Center URINALYSIS UA Bacteria Occasional /HPF None Seen 12/30 Normal [facility] (12/29/2012 23:37:00) Center URINALYSIS UA Mucus Few /LPF None Seen 12/30 Normal [facility] (12/29/2012 23:37:00) Center URINALYSIS UA RBC 3-5 /HPF 0 - 2 12/30 [facility] Medical *ABN* [place] (12/29/2012 23:37:00) URINALYSIS UA Sq Epi Rare /LPF Few 12/30 Normal [facility] (12/29/2012 23:37:00) Center URINALYSIS UA WBC 1-3 0 - 5 12/30 NA [facility] URINALYSIS UA Bili Negative Negative 12/30 NA [facility] *NA* Center (12/29/2012 23:37:00) URINALYSIS UA Ketones Negative Negative 12/30 NA [facility] *NA* Center (12/29/2012 23:37:00) URINALYSIS UA Blood Small Negative 12/30 [facility] Medical *ABN* Center (12/29/2012 23:37:00) URINALYSIS UA Protein Negative Negative 12/30 Normal [facility] (12/29/2012 23:37:00) Center URINALYSIS UA pH 7.5 5.0 - 8.0 12/30 Normal [facility] URINALYSIS UA Glucose Negative Negative 12/30 Normal [facility] (12/29/2012 23:37:00) Center URINALYSIS UA 0.2 EU/dL 0.1 - 1.0 12/30 Normal [facility] [place] /2012 [facility] URINALYSIS UA Nitrite Negative Negative 12/30 Normal [facility] (12/29/2012 23:37:00) Center URINALYSIS UA Turbidity Turbid Clear 12/30 ABN Medical *ABN* Center (12/29/2012 23:37:00) URINALYSIS UA Color Yellow Yellow 12/30 NA Medical *NA* Center (12/29/2012 23:37:00) URINALYSIS UA Spec Grav 1.010 <=1.030 12/30 Normal [facility] CHEMISTRY Lipase Lvl 113 unit/L 73 - 393 12/30 Normal [facility] CHEMISTRY Troponin-I null 0.00 - 12/30 Normal [facility] 0.40 [facility] CHEMISTRY Total CK 58 unit/L 12 - 191 12/30 Normal [facility] CHEMISTRY TSH 2.260 0.360 - 01/08 [...] g/dL 14.0 - 01/08 Normal [facility] 18.0 /2011 HEMATOLOGY RBC 4.52 M/CMM 4.70 - 01/08 [...] fL 7.4 - 10.4 01/08 Normal [facility] /2011 HEMATOLOGY Basophils # 0.0 K/CMM 0.0 - 0.2 01/08 Normal [facility] /2011 HEMATOLOGY Lymphocytes 1.7 K/CMM 1.0 - 5.5 01/08 Normal [facility] /2011 HEMATOLOGY Eosinophils 0.3 K/CMM 0.0 - [...] % 2.0 - 12.0 01/08 Normal [facility] HEMATOLOGY Plt Morph Normal 01/08 Normal [facility] [...] Rate 68 03/08/2017 [facility] Weight 65.909 12/13/2016 [facility] Height 162.56 cm 12/13/2016 [facility] BMI Calculated 24.94 12/13/2016 [facility] Systolic (mm Hg) 134 10/08/2016 [facility] Diastolic (mm Hg) 58 10/08/2016 [facility] Heart Rate 54 10/08/2016 [facility] Temperature Oral (F) 97.7 F 10/08/2016 [facility] Heart Rate 52 10/08/2016 [facility] Respitory Rate 16 10/08/2016 [facility] Systolic (mm Hg) 161 10/08/2016 [facility] Diastolic (mm Hg) 66 10/08/2016 [facility] Temperature Oral (F) 97.6 F 10/08/2016 [facility] Heart Rate 54 10/08/2016 [facility] Systolic (mm Hg) 157 10/08/2016 [facility] Diastolic (mm Hg) 71 10/08/2016 [facility] Respitory Rate 16 10/08/2016 [facility] Temperature Oral (F) 98.1 F 10/08/2016 [facility] Respitory Rate 18 10/08/2016 [facility] Weight 66.636 10/04/2016 [facility] BMI Calculated 23.07 10/04/2016 [facility] Weight 66.818 10/04/2016 [facility] Height 170.18 cm 10/04/2016 [facility] BMI Calculated 24.48 03/02/2016 [facility] Weight 70.909 03/02/2016 [facility] Height 170.18 cm 03/02/2016 [facility] Systolic (mm Hg) 151 03/02/2016 [facility] Diastolic (mm Hg) 79 03/02/2016 [facility] Respitory Rate 20 03/02/2016 [facility] Heart Rate 53 03/02/2016 [facility] Respitory Rate 20 08/22/2015 [facility] Systolic (mm Hg) 142 08/22/2015 [facility] Diastolic (mm Hg) 65 08/22/2015 [facility] Temperature Oral (F) 97.4 F 08/22/2015 [facility] Heart Rate 53 08/22/2015 [facility] Heart Rate 58 08/22/2015 [facility] Systolic (mm Hg) 145 08/22/2015 [facility] Diastolic (mm Hg) 70 08/22/2015 [facility] Temperature Oral (F) 97.8 F 08/22/2015 [facility] Respitory Rate 20 08/22/2015 [facility] Temperature Oral (F) 98.3 F 08/22/2015 [facility] Heart Rate 55 08/22/2015 [facility] Systolic (mm Hg) 131 08/22/2015 [facility] Diastolic (mm Hg) 60 08/22/2015 [facility] Respitory Rate 20 08/22/2015 [facility] Weight 65.727 08/20/2015 [facility] BMI Calculated 22.69 08/20/2015 [facility] Height 170.18 cm 08/20/2015 [facility] Temperature Oral (F) 97.7 F 08/18/2015 [facility] Respitory Rate 20 08/18/2015 [facility] Systolic (mm Hg) 209 08/18/2015 [facility] Diastolic (mm Hg) 66 08/18/2015 [facility] Temperature Oral (F) 97.2 F 08/17/2015 [facility] Diastolic (mm Hg) 81 08/17/2015 [facility] Systolic (mm Hg) 188 08/17/2015 [facility] Respitory Rate 23 08/17/2015 [facility] Respitory Rate 28 08/17/2015 [facility] Systolic (mm Hg) 200 08/17/2015 [facility] Diastolic (mm Hg) 85 08/17/2015 [facility] Temperature Oral (F) 97.0 F 08/17/2015 [facility] Height 170.18 cm 08/17/2015 [facility] Weight 65.909 08/17/2015 [facility] BMI Calculated 22.76 08/17/2015 [facility] Heart Rate 50 08/17/2015 [facility] Temperature Oral (F) 98.0 F 08/14/2015 [facility] Heart Rate 68 08/14/2015 [facility] Temperature Oral (F) 97.7 F 08/14/2015 [facility] Systolic (mm Hg) 119 08/14/2015 [facility] Diastolic (mm Hg) 64 08/14/2015 [facility] Respitory Rate 20 08/14/2015 [facility] Temperature Oral (F) 97.6 F 08/14/2015 [facility] Heart Rate 60 08/14/2015 [facility] Respitory Rate 18 08/14/2015 [facility] Systolic (mm Hg) 129 08/14/2015 [facility] Diastolic (mm Hg) 57 08/14/2015 [facility] Heart Rate 80 08/14/2015 [facility] Systolic (mm Hg) 112 08/14/2015 [facility] Diastolic (mm Hg) 53 08/14/2015 [facility] Respitory Rate 18 08/14/2015 [facility] Weight 30.909 08/03/2015 [facility] Weight 68.182 08/03/2015 [facility] BMI Calculated 23.54 08/03/2015 [facility] Height 170.18 cm 08/03/2015 [facility] Weight 67.273 08/02/2015 [facility] BMI Calculated 23.23 08/02/2015 [facility] Height 170.18 cm 08/02/2015 [facility] BMI Calculated 22.6 12/19/2014 [facility] [place] Weight 65.455 12/19/2014 [facility] Height 170.18 cm 12/19/2014 [facility] Diastolic (mm Hg) 71 11/27/2014 [facility] Systolic (mm Hg) 171 11/27/2014 [facility] Heart Rate 55 11/27/2014 [facility] Weight 67.273 11/27/2014 [facility] Diastolic (mm Hg) 65 10/30/2014 [facility] Heart Rate 54 10/30/2014 [facility] Systolic (mm Hg) 152 10/30/2014 [facility] BMI Calculated 23.54 10/30/2014 [facility] Weight 68.182 10/30/2014 [facility] Height 170.18 cm 10/30/2014 [facility] Diastolic (mm Hg) 72 10/15/2014 [facility] Systolic (mm Hg) 156 10/15/2014 [facility] Respitory Rate 18 10/15/2014 [facility] Heart Rate 55 10/15/2014 [facility] Weight 68.182 10/15/2014 [facility] BMI Calculated 23.54 10/15/2014 [facility] Height 170.18 cm 10/15/2014 [facility] Heart Rate 65 01/09/2014 [facility] Systolic (mm Hg) 144 01/09/2014 [facility] Diastolic (mm Hg) 67 01/09/2014 [facility] Weight 71.364 01/09/2014 [facility] BMI Calculated 24.64 01/09/2014 [facility] Height 170.18 cm 01/09/2014 [facility] Respitory Rate 18 01/01/2014 [facility] Systolic (mm [...] 09/10/2013 [facility] Systolic (mm Hg) 147 01/02/2013 [facility] Diastolic (mm Hg) 70 01/02/2013 [facility] Respitory Rate 18 01/02/2013 [facility] Temperature Oral (F) 98.4 F 01/02/2013 [facility] Diastolic (mm Hg) 65 01/02/2013 [facility] Systolic (mm Hg) 142 01/02/2013 [facility] Systolic (mm Hg) 192 01/02/2013 [facility] Diastolic (mm Hg) 69 01/02/2013 [facility] Heart Rate 58 01/02/2013 [facility] Respitory Rate 17 01/02/2013 [facility] Temperature Oral (F) 97.9 F 01/02/2013 [facility] Respitory Rate 18 01/02/2013 [facility] Heart Rate 50 01/02/2013 [facility] Heart Rate 95 01/02/2013 [facility] Temperature Oral (F) 98.2 F 01/02/2013 [facility] Weight 76.364 12/30/2012 [facility] Height 167.64 cm 12/30/2012 [facility] Weight 72.727 12/30/2012 [facility] Height 170.18 cm 12/30/2012 [facility] Systolic (mm Hg) 124 10/24/2012 [facility] Heart Rate 53 10/24/2012 [facility] Respitory Rate 16 10/24/2012 [facility] Diastolic (mm Hg) 63 10/24/2012 [facility] Height 170.18 cm 10/24/2012 [facility] Weight 75.000 10/24/2012 [facility] Heart Rate 58 08/03/2012 [facility] Respitory Rate 18 08/03/2012 [facility] Temperature Oral (F) 98.4 F 08/03/2012 [facility] Diastolic (mm Hg) 51 08/03/2012 [facility] Systolic (mm Hg) 110 08/03/2012 [facility] Height 170.18 cm 08/03/2012 [facility] Weight 75.000 08/03/2012 [facility] Height 170.18 cm 05/01/2012 [facility] Weight 72.727 05/01/2012 [facility] Systolic (mm Hg) 131 01/07/2012 [facility] Heart Rate 54 01/07/2012 [facility] Diastolic (mm Hg) 59 01/07/2012 [facility] Respitory Rate 14 01/07/2012 [facility] Temperature Oral (F) 98.1 F 01/07/2012 [facility] Height 170.18 cm 01/07/2012 [facility] Weight 72.727 01/07/2012 [facility] Encounters Location Location Encounter Encounter Reason Attending ADM DC Status Source Details Type Number For Provider Date Date Visit Outpatient [id number] SLEEP JOSE C 01/07 Active [facility] 2 [facility] Outpatient [id number] JOSE C 01/19 Active [facility] 3 Outpatient [id number] CPAP/BPA JOSE C 02/08 Active [facility] 4 P [facility] Outpatient [id number] 786.7 [place] GUZMAN 05/01 Active [facility] [id number] FU JOSE C 08/03 Active [facility] 6 Outpatient [id number] FU JOSE C 10/24 Active [facility] 7 [facility] Inpatient [id number] ANTWON MATTHEW 12/30 01/02 Active [facility] [id number] F/U TIESHA 02/20 Active [facility] 8 A Outpatient [id number] F/U TIESHA 09/10 Active [facility] 1 A Outpatient [id number] FOLLOW TIESHA 01/01 Active [facility] 2 UP A [facility] Outpatient [id number] ALEENA HANDY 01/09 Active [facility] 3 BOWEL [facility] Outpatient [id number] _MAPID:[id number] 01/09 01/10 [place] [id number] Physician /2013 [place] [address] [id number] [facility] Outpatient [id number] Tiesha 10/15 10/16 [facility] [place] 4 l /2013 [facility] a [facility] Outpatient [id number] Angel 10/30 10/31 [place] 7 [place] /2013 [facility] Outpatient [id number] Angel 11/27 11/28 [place] 0 Crystal [facility] Outpatient [id number] Tiesha 12/03 12/03 [facility] [place] 6 [facility] /2014 [facility] Diag [id number] Angel 12/19 12/20 [facility] 3 [facility] [id number] Tiesha 12/26 12/26 [facility]2014 [facility] a [facility] Inpatient [id number] [place] 08/02 08/14 [place] [facility] 7 Kirsten /2014 [facility] EC [id number] [place] 08/17 08/18 [facility] 8 Damion /2014 [facility] OBS [id number] Dipak 08/20 08/22 [facility] Observation 2 Arianne /2014 [facility] Outpatient [id number] Tiesha 03/02 03/03 [facility] Outpt Diag [id number] Ana Rosa 06/04 06/05 [facility] [place] [facility] Out[facility] Di[facility] [id number] Ana Rosa 07/09 07/10 [facility] 5 [place] [facility] [place] [facility] Inpatient [id number] [place] 10/04 10/08 [facility] [place] [facility] 1 Rianon /2015 [facility] Outpatient [id number] Non 12/13 12/14 [place] [facility] 2 Physician /2016 [facility] Outpatient [id number] Cornelio Franc 02/24 02/25 [facility] [place] [facility] Outpt Diag [id number] Denise 02/28 03/01 [facility] 6 Behan[place]omyn [facility] [place] [facility] [id number] Tiesha 03/08 03/09 [facility] 0 Tallavajhul /2016 [facility] Outpt Diag [id number] Ana Rosa 04/15 04/16 [facility] [place] [facility] Out[facility] Diag [id number] Ana Rosa 05/20 05/21 [facility] 8 [facility] [place] [facility] Outpt Diag [id number] Ana Rosa 05/23 05/24 [facility] 9 [place] [facility] [place] [facility] Outpt Diag [id number] Ana Rosa 04/25 04/26 [facility] 0 [facility] [place] [facility] [id number] F/U TIESHA Active [facility] 0 [facility] Procedures Procedure Code Date Perfomer Comments Source Cholecystectomy [id number] [facility] 1 [place] [facility] Cholecystectomy [id number] [address] Cholecystectomy [id number] [facility] 1 Bilateral repair of [id number] procedure x 3 [facility] inguinal hernia, [place] direct<sup>1</sup> Imaging Complete repair of [id number] right [facility] rotator shoulder, with [place] cuff<sup>2</sup> small pin Imaging inserted Complete resection of [id number] [facility] colon [place] [facility] Excision of [id number] [facility] gallbladder [place] [facility] Manipulation of [id number] [facility] deviated nasal septum [place] [facility] Bilateral repair of [id number] procedure x 3 [facility] [place] inguinal hernia, [facility] direct<sup>1</sup> Center Complete repair of [id number] right [place] rotator shoulder, with [facility] cuff<sup>2</sup> small pin Center inserted Complete resection of [id number] [facility] colon [facility] Excision of [id number] [facility] gallbladder [facility] Manipulation of [id number] [facility] deviated nasal septum [facility] Bilateral repair of [id number] procedure x 3 [facility] inguinal hernia, direct<sup>1</sup> Complete repair of [id number] right [facility] rotator shoulder, with cuff<sup>2</sup> small pin inserted Complete resection of [id number] [facility] colon Excision of [id number] [facility] gallbladder Manipulation of [id number] [facility] deviated nasal septum
--- OUTSIDE RECORDS SUMMARY | 2018-08-11 16:42 | XMS REPORT | CCD ---
:1930 Author Organization [facility] Care Team Providers Name Role Phone Augie [...]
--- OUTSIDE RECORDS SUMMARY | 2018-08-11 16:42 | XMS REPORT | CCD ---
:1930 Author Organization [facility] Team Providers Name Role Phone Augie [...]
--- OUTSIDE RECORDS SUMMARY | 2018-08-11 16:42 | XMS REPORT | CCD ---
:1930 Author Organization [facility] Care Team Providers Name Role Phone Galeano [...]
--- OUTSIDE RECORDS SUMMARY | 2018-08-11 16:42 | XMS REPORT | CCD ---
:1930 Author Organization [facility] Team Providers Name Role Phone Tiesha [...]
--- OUTSIDE RECORDS SUMMARY | 2018-08-11 16:42 | XMS REPORT | CCD ---
:1930 Author Organization [facility] Care Team Providers Name Role Phone Augie [...]
--- OUTSIDE RECORDS SUMMARY | 2018-08-11 16:42 | XMS REPORT | CCD ---
:1930 Author Organization [facility] Outpatient Imaging [place] Care Team Providers Name Role Phone Madeline [...]
--- OUTSIDE RECORDS SUMMARY | 2018-08-11 16:42 | XMS REPORT | CCD ---
:1930 Author Organization [facility] Care Team Providers Name Role Phone [...] 12/30/2012 01/02/2013 Discontinued SUB-Q, Drug form: INJ, [id number], Dosing Weight 72.727, kg, Start date: 12/30/12 [...] Duration: 1 doses or times, Dose=2.2ml/kg, Max [id number] -- "To be infused by Radiology Staff ONLY" 12/2912/30/2012 Completed Dose=2.2ml/kg, Max uque=[id number] -- "To be infused by Radiology Staff [...] values reflect the clinical guidelines of the [place] [employer].5Interpretive Data: Adult reference range values reflect the clinical guidelines of the [place] [employer].6Interpretive Data: Adult reference range values reflect the clinical guidelines of the [place] [employer].HEMATOLOGY Most recent to oldest 1 [...]
--- OUTSIDE RECORDS SUMMARY | 2018-08-11 16:42 | XMS REPORT | CCD ---
:1930 Author Organization [facility] Team Providers Name Role Phone Tiesha [...]
--- OUTSIDE RECORDS SUMMARY | 2018-08-11 16:42 | XMS REPORT | CCD ---
:1930 Author Organization [facility] Team Providers Name Role Phone Tiesha Cason [...]
--- OUTSIDE RECORDS SUMMARY | 2018-08-11 16:42 | XMS REPORT | CCD ---
:1930 Author Organization [facility] Outpatient Imaging [place] Care Team Providers Name Role Phone Tahir [...]
--- OUTSIDE RECORDS SUMMARY | 2018-08-11 16:43 | XMS REPORT | CCD ---
:1930 Author Organization [facility] Care Team Providers Name Role [...]
--- OUTSIDE RECORDS SUMMARY | 2018-08-11 16:43 | XMS REPORT | CCD ---
:1930 Author Organization [facility] Care Team Providers Name Role Phone Tiesha [...]
--- OUTSIDE RECORDS SUMMARY | 2018-08-11 16:43 | XMS REPORT | CCD ---
:1930 Author Organization [facility] Team Providers Name Role Phone Tiesha Cason [...]
--- NOTE | 2018-08-11 17:48 | RAD REPORT ---
EXAM DESCRIPTION: CT - Stone Protocol - 08/11/2018 5:38 pm CLINICAL HISTORY: Flank pain. bowel obstruction COMPARISON: Stone Protocol dated 04/17/2018; Abdomen Pelvis W Contrast dated 11/15/2017; Abdomen Pelvis Wo Contrast dated 04/11/2017; Abdomen Pelvis Wo Contrast dated 12/01/2016 TECHNIQUE: Axial images were obtained without oral or IV contrast. Lack of contrast limits solid org an and vascular assessment. The [id number] spans the entirety of the system partially obscuring uppermost abdomen and lung bases. Coronal reformatted images were obtained and reviewed. All CT scans are performed using dose optimization technique as appropriate and may include automated exposure control or mA/KV adjustment according to patient size. 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 Small 9 mm cyst is present in the inferior right lobe of the liver. No aggressive liver lesion or kerri iary dilatation. Cholecystectomy clips are present. The spleen, pancreas and adrenal glands are anshul l. No renal calculus or hydronephrosis. Heavy vascular calcifications evident. Multiple dilated small bowel loops are present compatible with moderate mechanical small-bowel obstru ction. Decompressed small bowel loops are seen in the right lower quadrant, point of transition is li kalani in the right aspect of the abdomen. Postsurgical changes are present involving the colon on the right. No free air or abscess. Moderate fecal retention in the colon. No pneumatosis. Multilevel spondylosis is present of the spine. IMPRESSION: Moderately severe mechanical small bowel obstruction.
--- NOTE | 2018-08-11 18:23 | EDPHYS ---
Physician Documentation [facility] Name: Marcial Groves Age: 87 yrs Sex: Male : 1930 Arrival Date: 08/11/2018 Time: 16:26 Bed 19 Private MD: out of town, doctor ED Physician Geovanny Srivastava HPI: 08/11 18:07 This 87 yrs old Male presents to ER via Wheelchair with complaints of BOWEL gs PROBLEM. 18:07 The patient presents with abdominal pain abdominal distention. Onset: The gs symptoms/episode began/occurred today. Associated signs and symptoms: Pertinent positives: constipation, no bm for 2 days. The symptoms are described as crampy. Severity of pain: At its worst the pain was moderate in the emergency department the pain is unchanged. Historical: - Allergies: 16:56 NKDA; aj1 - Home Meds: 16:56 aspirin 325 mg Oral tab 1 tab once daily [Active]; buspirone 10 mg Oral tab 1 tab 3 aj1 times per day [Active]; Bystolic 5 mg Oral tab 1 tab once daily for Hypertension [Active]; carbidopa-levodopa 25-100 mg Oral tab 3 times per day for Parkinsonism [Active]; clonidine HCl 0.1 mg Oral tab every 8 hours [Active]; dutasteride-tamsulosin 0.5-0.4 mg Oral CM24 1 cap once daily [Active]; fexofenadine 180 mg Oral tab 1 tab once daily [Active]; Flomax 0.4 mg Oral cp24 1 cap once daily for Symptomatic Benign Prostatic Hyperplasia [Active]; hydrochlorothiazide 12.5 mg Oral cap 1 cap once daily [Active]; lamotrigine 100 mg Oral tab 1 tab 2 times per day [Active]; melatonin 5 mg Oral cap nightly [Active]; memantine 28 mg Oral tab once daily [Active]; metoclopramide HCl 5 mg Oral tab 1 tab twice a day [Active]; ondansetron HCl 4 mg Oral tab as needed [Active]; pantoprazole 40 mg Oral tab 1 tab once daily [Active]; phenytoin sodium extended 100 mg Oral cap 1 cap 4 times per day [Active]; polyethylene glycol 3350 17 gram/dose Oral powd 0.5 of powder twice a day [Active]; Probiotic Oral daily [Active]; quetiapine 25 mg Oral tab 1 tab 3 times per day [Active]; trazodone 50 mg Oral tab nightly [Active]; Vesicare 10 mg Oral tab 1 tab once daily [Active]; vitamin B complex Oral tab daily [Active]; Zofran (as hydrochloride) 4 mg Oral tab daily [Active]; - PMHx: 16:56 10 BOWEL OBSTRUCTIONS ; "THEY DIDN'T HAVE TO OPERATE ON ANY OF THEM"; Atrial Fib; bowel aj1 incontinence; colon cancer; CVA; Dementia; Hypertension; Kidney stones; Pancreatitis; Parkinsons; prostatic hyperplasia; psoriasis; pulmonary fibrosis; UTI; VASCULAR DEMENTIA; - Immunization history:: Flu vaccine is up to date. - Social history:: Smoking status: Patient/guardian denies using tobacco. - Ebola Screening: : Patient denies travel to an Ebola-affected area in the 21 days before illness onset. ROS: 18:07 All other systems are negative. gs Exam: 18:07 Head/Face: Normocephalic, atraumatic. Eyes: Pupils equal round and reactive to light, gs extra-ocular motions intact. Lids and lashes normal. Conjunctiva and sclera are non-icteric and not injected. Cornea within normal limits. Periorbital areas with no swelling, redness, or edema. ENT: Nares patent. No nasal discharge, no septal abnormalities noted. Tympanic membranes are normal and external auditory canals are clear. Oropharynx with no redness, swelling, or masses, exudates, or evidence of obstruction, uvula midline. Mucous membranes moist. Neck: Trachea midline, no thyromegaly or masses palpated, and no cervical lymphadenopathy. Supple, full range of motion without nuchal rigidity, or vertebral point tenderness. No Meningismus. Chest/axilla: Normal chest wall appearance and motion. Nontender with no deformity. No lesions are appreciated. Cardiovascular: Regular rate and rhythm with a normal S1 and S2. No gallops, murmurs, or rubs. Normal PMI, no JVD. No pulse deficits. Respiratory: Lungs have equal breath sounds bilaterally, clear to auscultation and percussion. No rales, rhonchi or wheezes noted. No increased work of breathing, no retractions or nasal flaring. Back: No spinal tenderness. No costovertebral tenderness. Full range of motion. Skin: Warm, dry with normal turgor. Normal color with no rashes, no lesions, and no evidence of cellulitis. MS/ Extremity: Pulses equal, no cyanosis. Neurovascular intact. Full, normal range of motion. Neuro: Awake and alert, GCS 15, oriented to person, place, time, and situation. Cranial nerves II-XII grossly intact. Motor strength 5/5 in all extremities. Sensory grossly intact. Cerebellar exam normal. Normal gait. 18:07 Constitutional: The patient appears alert, awake. 18:07 Abdomen/GI: Inspection: distension, that is moderate, Palpation: mild abdominal tenderness, in all quadrants, mass, is not appreciated, rebound tenderness, is not appreciated. Vital Signs: 16:56 BP 167 / 103; Pulse 94; Resp 20; Temp 97.4(TE); Pulse Ox 96% on R/A; Weight 68.04 kg aj1 (R); Height 5 ft. 6 in. (167.64 cm) (R); Pain 0/10; 18:19 BP 175 / 87; Pulse 75; Resp 17; Pulse Ox 96% on R/A; tw2 19:23 BP 135 / 76; Pulse 87; Resp 18 S; Pulse Ox 90% on R/A; Pain 0/10; jb4 16:56 Body Mass Index 24.21 (68.04 kg, 167.64 cm) aj1 MDM: 17:36 Patient medically screened. 18:18 Differential diagnosis: bowel obstruction, gastritis, non-specific abd pain, gs pancreatitis. Data reviewed: vital signs, nurses notes. Response to treatment: the patient's symptoms have mildly improved after treatment. Physician consultation: Geovanny Srivastava MD regarding admission, and will see patient in inpatient room. 08/11 17:22 Order name: Basic Metabolic Panel 08/11 17:22 Order name: CBC with Diff 08/11 17:22 Order name: Creatinine for Radiology 08/11 17:22 Order name: Hepatic Function 08/11 17:22 Order name: Lipase 08/11 19:10 Order name: CBC Smear Scan EDPA 08/11 17:22 Order name: IV Saline Lock; Complete Time: 18:26 08/11 17:22 Order name: Labs collected and sent; Complete Time: 18:15 08/11 17:22 Order name: CT Stone Protocol; Complete Time: 17:55 08/11 18:23 Order name: EKG; Complete Time: 18:23 08/11 18:26 Order name: CONS Physician Consult [facility] 08/11 18:44 Order name: Chest Single View XRAY 08/11 19:33 Order name: RAD EDPA 08/11 18:00 Order name: NG Tube; Complete Time: 18:43 08/11 18:23 Order name: EKG - Nurse/Tech; Complete Time: 19:11 gs Administered Medications: 18:43 Drug: NS 0.9% 1000 ml Route: IV; Rate: 125 ml/hr; Site: left antecubital; tw2 20:00 Follow up: Response: No adverse reaction; IV Status: Infusion continued upon admission jb4 Disposition: 08/11/18 18:22 Hospitalization ordered by Elroy Moe for Inpatient Admission. Preliminary diagnosis is Other intestinal obstruction. - Bed requested for Telemetry/MedSurg (Inpatient). - Status is Inpatient Admission. ak1 - Condition is Stable. - Problem is new. - Symptoms have improved. UTI on Admission? No Critical care time excluding procedures: 18:18 Critical care time: Bedside Care: 10 minutes, Consultation: 10 minutes, Family gs Intervention: 10 minutes. Total time: 30 minutes Signatures: Dispatcher [employer] [facility] Cynthia Seay RN RN aj1 Belinda Kern RN RN kl Krenek, Amber, RN RN ak1 Neyda Benavides RN RN tw2 Geovanny Srivastava MD MD gs Bryson, James RN jb4 Corrections: (The following items were deleted from the chart) 19:14 18:22 Hospitalization Ordered by Elroy Moe MD for Inpatient Admission. Preliminary kl diagnosis is Other intestinal obstruction. Bed requested for Telemetry/MedSurg (Inpatient). Status is Inpatient Admission. Condition is Stable. Problem is new. Symptoms have improved. UTI on Admission? No. gs 20:02 19:14 08/11/2018 18:22 Hospitalization Ordered by Elroy Moe MD for Inpatient ak1 Admission. Preliminary diagnosis is Other intestinal obstruction. Bed requested for Telemetry/MedSurg (Inpatient). Status is Inpatient Admission. Condition is Stable. Problem is new. Symptoms have improved. UTI on Admission? No. kl
--- NOTE | 2018-08-11 18:23 | ER ---
Nurse's Notes [facility] Name: Marcial Groves Age: 87 yrs Sex: Male : 1930 Arrival Date: 08/11/2018 Time: 16:26 Bed 19 Private MD: out of town, doctor Diagnosis: Other intestinal obstruction Presentation: 08/11 16:49 Presenting complaint: Child states: "He's been throwing up since after lunch today, he aj1 hasn't pooped since Tuesday. He has been hospitalized at least 15 times for bowel obstruction, and this is always what its like" Denies fever, denies abdominal pain. Transition of care: patient was not received from another setting of care. Onset of symptoms was July 2018. Risk Assessment: Do you want to hurt yourself or someone else? Patient reports no desire to harm self or others. Initial Sepsis Screen: Does the patient meet any 2 criteria? No. Patient's initial sepsis screen is negative. Does the patient have a suspected source of infection? No. Patient's initial sepsis screen is negative. Care prior to arrival: None. 16:49 Method Of Arrival: Wheelchair aj1 16:49 Acuity: JER 3 aj1 Triage Assessment: 16:56 General: Appears in no apparent distress. uncomfortable, Behavior is calm, cooperative, aj1 appropriate for age. Pain: Denies pain. Cardiovascular: Patient's skin is warm and dry. Respiratory: Airway is patent Respiratory effort is even, unlabored, Respiratory pattern is regular, symmetrical. GI: Patient currently denies abdominal pain, Parent/caregiver reports the patient having nausea, vomiting. Historical: - Allergies: 16:56 NKDA; aj1 - Home Meds: 16:56 aspirin 325 mg Oral tab 1 tab once daily [Active]; buspirone 10 mg Oral tab 1 tab 3 aj1 times per day [Active]; Bystolic 5 mg Oral tab 1 tab once daily for Hypertension [Active]; carbidopa-levodopa 25-100 mg Oral tab 3 times per day for Parkinsonism [Active]; clonidine HCl 0.1 mg Oral tab every 8 hours [Active]; dutasteride-tamsulosin 0.5-0.4 mg Oral CM24 1 cap once daily [Active]; fexofenadine 180 mg Oral tab 1 tab once daily [Active]; Flomax 0.4 mg Oral cp24 1 cap once daily for Symptomatic Benign Prostatic Hyperplasia [Active]; hydrochlorothiazide 12.5 mg Oral cap 1 cap once daily [Active]; lamotrigine 100 mg Oral tab 1 tab 2 times per day [Active]; melatonin 5 mg Oral cap nightly [Active]; memantine 28 mg Oral tab once daily [Active]; metoclopramide HCl 5 mg Oral tab 1 tab twice a day [Active]; ondansetron HCl 4 mg Oral tab as needed [Active]; pantoprazole 40 mg Oral tab 1 tab once daily [Active]; phenytoin sodium extended 100 mg Oral cap 1 cap 4 times per day [Active]; polyethylene glycol 3350 17 gram/dose Oral powd 0.5 of powder twice a day [Active]; Probiotic Oral daily [Active]; quetiapine 25 mg Oral tab 1 tab 3 times per day [Active]; trazodone 50 mg Oral tab nightly [Active]; Vesicare 10 mg Oral tab 1 tab once daily [Active]; vitamin B complex Oral tab daily [Active]; Zofran (as hydrochloride) 4 mg Oral tab daily [Active]; - PMHx: 16:56 10 BOWEL OBSTRUCTIONS ; "THEY DIDN'T HAVE TO OPERATE ON ANY OF THEM"; Atrial Fib; bowel aj1 incontinence; colon cancer; CVA; Dementia; Hypertension; Kidney stones; Pancreatitis; Parkinsons; prostatic hyperplasia; psoriasis; pulmonary fibrosis; UTI; VASCULAR DEMENTIA; - Immunization history:: Flu vaccine is up to date. - Social history:: Smoking status: Patient/guardian denies using tobacco. - Ebola Screening: : Patient denies travel to an Ebola-affected area in the 21 days before illness onset. Screenin:42 Abuse screen: Denies threats or abuse. Nutritional screening: No deficits noted. tw2 Tuberculosis screening: No symptoms or risk factors identified. Fall Risk None identified. Assessment: 17:00 General: Appears in no apparent distress. Pain: Denies pain. Neuro: Level of tw2 Consciousness is awake, alert, obeys commands, Oriented to person, place, situation. Cardiovascular: Denies chest pain, shortness of breath, Heart tones S1 S2 Capillary refill < 3 seconds Patient's skin is warm and dry. Respiratory: Airway is patent Respiratory effort is even, unlabored, Respiratory pattern is regular, symmetrical, Breath sounds are clear bilaterally. GI: Abdomen is round Bowel sounds present X 4 quads. Parent/caregiver reports the patient having nausea, vomiting. : No signs and/or symptoms were reported regarding the genitourinary system. EENT: No signs and/or symptoms were reported regarding the EENT system. Derm: No signs and/or symptoms reported regarding the dermatologic system. Musculoskeletal: Range of motion: intact in all extremities. 18:20 Reassessment: Patient appears in no apparent distress at this time. No changes from tw2 previously documented assessment. Patient and/or family updated on plan of care and expected duration. Pain level reassessed. Patient is alert, oriented x 3, equal unlabored respirations, skin warm/dry/pink. 19:23 General: Appears in no apparent distress. uncomfortable. Pain: Denies pain. Neuro: jb4 Level of Consciousness is awake, alert, obeys commands, Oriented to person, place, situation. Cardiovascular: Heart tones S1 S2 Patient's skin is warm and dry. Respiratory: Airway is patent Respiratory effort is even, unlabored, Respiratory pattern is regular, symmetrical, Breath sounds are clear bilaterally. GI: Abdomen is round Bowel sounds present X 4 quads. : No signs and/or symptoms were reported regarding the genitourinary system. EENT: No signs and/or symptoms were reported regarding the EENT system. Musculoskeletal: Circulation, motion, and sensation intact. Vital Signs: 16:56 BP 167 / 103; Pulse 94; Resp 20; Temp 97.4(TE); Pulse Ox 96% on R/A; Weight 68.04 kg aj1 (R); Height 5 ft. 6 in. (167.64 cm) (R); Pain 0/10; 18:19 BP 175 / 87; Pulse 75; Resp 17; Pulse Ox 96% on R/A; tw2 19:23 BP 135 / 76; Pulse 87; Resp 18 S; Pulse Ox 90% on R/A; Pain 0/10; jb4 16:56 Body Mass Index 24.21 (68.04 kg, 167.64 cm) aj1 ED Course: 16:26 Patient arrived in ED. sb2 16:27 out of town, doctor is Private Physician. sb2 16:53 Triage completed. aj1 16:56 Arm band placed on Patient placed in an exam room. aj1 16:59 Neyda Benavides, RN is Primary Nurse. tw2 17:00 Placed in gown. Bed in low position. Side rails up X2. Adult w/ patient. Pulse ox on. tw2 NIBP on. Warm blanket given. 17:02 Geovanny Srivastava MD is Attending Physician. 17:38 CT Stone Protocol In Process Unspecified. EDMA 17:39 Patient moved to DE. wa 17:39 CT completed. Patient tolerated procedure well. Patient moved back from [place]. wa 17:55 Missed attempt(s): 22 gauge in left antecubital area. notified charge nurse JEFF Arrieta tw2 of need for IV line and blood. Bleeding controlled, band aid applied, catheter tip intact. 18:21 Elroy Moe MD is Hospitalizing Provider. 18:26 Inserted saline lock: 22 gauge in left antecubital area, using aseptic technique. Blood ss collected. 18:41 NGT: inserted 12 Fr. via right nare. verified placement of air over stomach, to tw2 intermittent suction. Patient tolerated per JEFF Hurtado. 18:55 Report given to JEFF Knapp \\T\\ JEFF Siu. tw2 19:08 Primary Nurse role handed off by Neyda Benavides RN rg2 19:10 Salbador Carrera RN is Primary Nurse. jb4 20:00 No provider procedures requiring assistance completed. Patient admitted, IV remains in jb4 place. Administered Medications: 18:43 Drug: NS 0.9% 1000 ml Route: IV; Rate: 125 ml/hr; Site: left antecubital; tw2 20:00 Follow up: Response: No adverse reaction; IV Status: Infusion continued upon admission jb4 Outcome: 18:22 Decision to Hospitalize by Provider. 20:00 Admitted to [facility], via stretcher, room 411, with chart, Report jb4 called to JEFF Land 20:00 Condition: stable 20:00 Instructed on the need for admit. 20:02 Patient left the ED. ak1 Signatures: Dispatcher [employer] EDMS Anil Roman rg2 Cynthia Seay RN RN aj1 Meenakshi Taveras RN RN ss Aria [place] RN RN ak1 Neyda Benavides RN RN tw2 Salbador Carrera RN RN jb4 Mohsen Beavers wa Geovanny Srivastava MD MD Penelope Blakely sb2
[2018-08-11 18:29] LABS: Absolute Lymphocytes (CBC) 0.9 K/uL (0.7-4.9); Absolute Monocytes 0.9 K/uL (0.1-1.3); Absolute Neutrophil 11.9 K/uL (1.8-8.0); Basophils % 0.1 % (0-1.3); Eosinophils % 0.4 % (0-4.4); Lymphocytes % 6.4 % (15.3-44.8); MCH 29.9 pg (27.0-35.0); MPV 9.1 fL (7.6-11.3); Monocytes % 6.5 % (3.3-12.3); RBC Red Blood Cell Count 5.33 M/uL (4.33-5.43)
[2018-08-11] MEDS ORDERED: ACETAMINOPHEN 650MG/RECT SUPP PR PRN (18:29)
[2018-08-11] MEDS ORDERED: MORPHINE 2 MG/ML SYR IV PRN (18:29)
[2018-08-11] MEDS ORDERED: NA CHLORIDE 0.9% 1,000 ML ONE (18:37)
[2018-08-11 18:46] LABS: Albumin 4.3 g/dL (3.4-5.0); Bilirubin Direct 0.2 mg/dL (0-0.2); Bilirubin Total 0.5 mg/dL (0.2-1.0); Potassium 4.4 mmol/L (3.5-5.1); Protein, Total 8.2 g/dL (6.4-8.2)
[2018-08-11 19:10] LABS: Anisocytosis SLIGHT; Blood Morphology Comment NOTED (NOT SEEN); Platelet Estimate ADEQ; Urine White Blood Cell Casts OK
--- NOTE | 2018-08-11 19:33 | RAD REPORT ---
EXAM DESCRIPTION: RAD - Chest Single View - 08/11/2018 7:18 pm CLINICAL HISTORY: sp ng placement Chest pain. COMPARISON: Chest Single View dated 05/12/2018; Chest Single View dated 04/30/2018; Chest Single View dated 04/28/2018; Chest Single View dated 04/19/2018 FINDINGS: Portable technique limits examination quality. Emphysematous changes are present throughout the lungs. Ill-defined opacity in the left retrocardiac region probably represents a small area of aspiration or atelectasis. The heart is moderately enlarge d. Enteric tube descends into the upper abdomen with its tip in the stomach.
--- NOTE | 2018-08-11 20:44 | P.HP ---
Certification for Inpatient Patient admitted to: Inpatient With expected LOS: >2 Midnights Practitioner: I am a practitioner with admitting privileges, knowledge of patient current condition, hospital course, and medical plan of care. Services: Services provided to patient in accordance with Admission requirements found in Title 42 Section 412.3 of the Code of Federal Regulations Patient History Date of Service: 08/11/18 Reason for admission: Small-bowel obstruction History of Present Illness: Mr Groves is an 87-year-old male with multiple medical problems including dementia, hypertension, previous episode of small-bowel obstruction, Parkinson disease, pulmonary fibrosis, who came to ED complaining of nausea vomiting and abdominal pain since his afternoon. There is no history of fever or chills. The last bowel movement was yesterday. He is not a good historian, most of the chief complaint abdominal by triage nurse and ER physician note. Lab work remarkable for leukocytosis 13.7 K, CT abdomen report mechanical small-bowel obstruction. The patient had place an NGT in ER, subsequent chest-x-ray shows good position of the NGT but also an infiltrate in the retrocardiac space consistent with aspiration process vs atelectasis. No fever documented in ER. Allergies No Known Drug Allergies Allergy (Verified 04/17/18 14:43) Unknown Home medications list reviewed: Yes Home Medications: Aspirin [Aspirin EC 325 MG] 325 mg PO DAILY 04/29/18 Bacillus Coagulans/Inulin [Probiotic Formula Capsule] 1 cap PO DAILY 04/29/18 Buspirone HCl [Buspar*] 10 mg PO TID 04/29/18 Carbidopa/Levodopa [Carbidopa-Levodopa 25-100 Tab] 1 tab PO TID 04/29/18 Clindamycin HCl 300 mg PO Q8H 04/29/18 Clindamycin HCl [Cleocin HCl *] 150 mg PO Q8H 04/29/18 Dutasteride/Tamsulosin HCl [Dutasteride-Tamsulosin 0.5-0.4] 1 cap PO DAILY 04/29 Fexofenadine HCl [Charito Allergy] 180 mg PO BEDTIME PRN PRN 04/29/18 Gnp B-50 Complex 1 tab PO DAILY 04/29/18 Hydralazine HCl 25 mg PO QIDP PRN 04/29/18 Hydralazine HCl 50 mg PO QID 04/29/18 L.acidoph,Paracasei, B.lactis [Probiotic] 1 cap PO DAILY 04/29/18 Lamotrigine [Lamictal] 100 mg PO BID 04/29/18 Melatonin/Pyridoxine [Melatonin 5 mg Tablet] 5 mg PO BEDTIME 04/29/18 Memantine HCl [Namenda Xr] 28 mg PO DAILY 04/29/18 Metoclopramide HCl 5 mg PO BID 04/29/18 Nebivolol HCl [Bystolic*] 5 mg PO DAILY 04/29/18 Olmesartan Medoxomil [Benicar] 20 mg PO BEDTIME 04/29/18 Ondansetron [Ondansetron Odt] 4 mg PO DAILYPRN PRN 04/29/18 Pantoprazole Sodium [Protonix] 40 mg PO DAILY 04/29/18 Phenytoin Sodium Extended [Dilantin] 100 mg PO QID 04/29/18 Quetiapine Fumarate [Seroquel] 25 mg PO TID 04/29/18 Solifenacin Succinate [Vesicare] 10 mg PO DAILY 04/29/18 Tamsulosin [Flomax*] 0.4 mg PO BEDTIME 04/29/18 Trazodone [Desyrel*] 50 mg PO DAILY 04/29/18 Vitamin B Complex [Vitamin B Complex*] 1 cap PO DAILY 04/29/18 Albuterol Neb [Proventil 0.083% Neb Soln] 2.5 mg IH Q6HP PRN #2 box 04/30/18 Amox/Clavulanate [Augmentin 875-125 Tab*] 1 each PO BID #14 tab 04/30/18 Nebulizer Accessories [Aeroneb Go] 1 each MC DAILY #1 each 04/30/18 Nebulizer Accessories [Mouthpiece] 1 each MC DAILY PRN #2 each 04/30/18 Nebulizer Accessories [Pillow Mask] 1 each MC DAILY #1 each 04/30/18 Nebulizer [Aeroneb Go Nebulizer] 1 each MC ONCE #1 each 04/30/18 Nebulizer and Compressor [Easy Air Compressor Nebulizer] 1 each MC DAILY #1 each 04/30/18 predniSONE [Prednisone*] 20 mg PO DAILY #5 tab 04/30/18 ALPRAZolam [Xanax] 0.25 mg PO BEDTIME PRN #30 tab 05/12/18 Spironolactone [Aldactone*] 25 mg PO BID #60 tab 05/12/18 - Past Medical/Surgical History Diabetic: No -: History of CVA -: HTN -: History of Colon cancer with bowel obstructions. -: Neuropathy -: Vascular Dementia -: Gait instability -: High Fall risk -: Osteoarthritis -: AFIB -: Bowel Resection -: Cholecystectomy -: Tonsillectomy -: Hernia Repair -: R. Rotator Cuff Repair Psychosocial/ Personal History: Lives with son. Has care givers 13/06. Son has POA. - Family History Mother -: Other (see notes) Notes: alzheimers - Social History Alcohol use: Yes CD- Drugs: No Caffeine use: No Review of Systems 10-point ROS is otherwise unremarkable Physical Examination - Vital Signs Temperature: 97.4 F Blood Pressure: 135/76 Pulse: 87 Respirations: 18 - Physical Exam General: Alert, In no apparent distress, Demented HEENT: Atraumatic, PERRLA, Mucous membr. moist/pink, EOMI, Sclerae nonicteric Neck: Supple, 2+ carotid pulse no bruit, No LAD, Without JVD or thyroid abnormality Respiratory: Diminished, Other (Coarse bilateral) Cardiovascular: Normal S1 S2, No gallops Gastrointestinal: Normal bowel sounds, No tenderness Musculoskeletal: No tenderness Integumentary: No rashes Neurological: Normal strength at 5/5 x4 extr, Normal tone, Sensation intact, Normal affect Lymphatics: No axilla or inguinal lymphadenopathy - Studies Laboratory Data (last 24 hrs) 08/11/18 18:11: Creatinine 1.00 08/11/18 18:11: WBC 13.7 H, Hgb 15.9, Hct 48.0, Plt Count 158 08/11/18 18:11: Sodium 138, Potassium 4.4, BUN 19 H, Creatinine 1.00, Glucose 161 H, Total Bilirubin 0.5, AST 27, ALT 18, Alkaline Phosphatase 180 H, Lipase 121 Assessment and Plan - Problems (Diagnosis) (1) Pneumonia Onset Date: 05/15/18 Current Visit: No Status: Acute Qualifiers: Pneumonia type: due to unspecified organism (2) SBO (small bowel obstruction) Onset Date: 05/17/16 Current Visit: No Status: Acute (3) Parkinsons disease Onset Date: 05/15/18 Current Visit: No Status: Chronic (4) Weakness Onset Date: 02/06/16 Current Visit: No Status: Chronic - Plan The patient will be admitted to the hospital due to SBO. On physical exam he has active bowel tones, and he stated after the NGT was placed, he started feeling better. Will keep him NPO and start IV fluids. Consult Dr. Quiñones for evaluation recommendation. Since he has been vomiting, and there is a retrocardiac infiltrate due to possible aspiration process, I will cover with empiric antibiotics. - Advance Directives Does patient have a Living Will: Yes Does patient have a Durable POA for Healthcare: Yes - Code Status/Comfort Care Code Status Assessed: Yes Code Status: Do Not Resuscitate
[2018-08-11 22:40] LABS: Urine Appearance CLEAR; Urine Bilirubin NEGATIVE (NEG); Urine Blood NEGATIVE (NEG); Urine Color YELLOW; Urine Glucose NEGATIVE (NEG); Urine Protein TRACE (NEG); Urine Urobilinogen 0.2 mg/dL (0.2-1.0)
[2018-08-11 22:42] LABS: Urine Microscopic Reflex ORDER UMIC
[2018-08-11 23:00] LABS: Urine Amorphous Sediment 1+ /HPF (NONE SEEN); Urine Bacteria <20 /HPF (NONE SEEN); Urine Culture Reflex Order NOT NEEDED; Urine RBC <5 /HPF (NONE SEEN)
[2018-08-11] MEDS: Levofloxacin500mg IV 500 MG/100 ML BAG IV SCH (23:27)
[2018-08-11] MEDS: ONDANSETRON 4 MG/2 ML VIAL IV PRN (23:28)
[2018-08-12 03:36] LABS: Absolute Lymphocytes (CBC) 1.1 K/uL (0.7-4.9); Absolute Monocytes 0.6 K/uL (0.1-1.3); Absolute Neutrophil 7.6 K/uL (1.8-8.0); Basophils % 0.2 % (0-1.3); Eosinophils % 0.2 % (0-4.4); Hematocrit 47.1 % (39.6-49.0); Lymphocytes % 11.9 % (15.3-44.8); MCH 30.4 pg (27.0-35.0); MCV 89.3 fL (80-100); MPV 9.3 fL (7.6-11.3); Monocytes % 6.9 % (3.3-12.3); RBC Red Blood Cell Count 5.28 M/uL (4.33-5.43)
[2018-08-12 03:48] LABS: Bilirubin Total 0.7 mg/dL (0.2-1.0); Magnesium 2.1 mg/dL (1.8-2.4); Potassium 4.1 mmol/L (3.5-5.1); Protein, Total 7.5 g/dL (6.4-8.2)
[2018-08-12] MEDS ORDERED: PROMETHAZINE 25 MG/ML VIAL IV PRN (04:04)
[2018-08-12] MEDS: METRONIDAZOLE 500mg IVPB 500 MG/100 ML BAG IV SCH ×3 (04:55→21:02)
[2018-08-12] MEDS: NA CHLORIDE 0.9% 1,000 ML IV SCH ×4 (04:55→22:29)
--- NOTE | 2018-08-12 08:05 | P.PN ---
Subjective Date of Service: 08/12/18 Primary Care Provider: Dr. Ana Rosa Cooney([place]) Chief Complaint: Small-bowel obstruction Subjective: Other (Patient resting. Patient had increased nausea and vomiting last night. NG tube in place.) Physical Examination - Vital Signs Temperature: 97.3 F Blood Pressure: 137/79 Pulse: 111 Respirations: 16 Pulse Ox (%): 92 - Physical Exam General: Alert, Other (Patient resting) HEENT: Atraumatic Neck: Supple Respiratory: Clear to auscultation bilaterally, Normal air movement Cardiovascular: Irregular heart rate/rhythm (Atrial fibrillation, rate around 110) Gastrointestinal: Normal bowel sounds, Soft and benign, Non-distended, No masses , No rebound, Tenderness (Mild pain) Musculoskeletal: No erythema, No tenderness, No warmth Integumentary: No tenderness/swelling, No erythema, No warmth, No cyanosis Neurological: Other (Patient resting in bed. Patient with dementia) - Studies Laboratory Data (last 24 hrs) 08/11/18 18:11: Creatinine 1.00 08/11/18 18:11: WBC 13.7 H, Hgb 15.9, Hct 48.0, Plt Count 158 08/11/18 18:11: Sodium 138, Potassium 4.4, BUN 19 H, Creatinine 1.00, Glucose 161 H, Total Bilirubin 0.5, AST 27, ALT 18, Alkaline Phosphatase 180 H, Lipase 121 Medications List Reviewed: Yes Assessment & Plan Discharge Plan: Home Plan to discharge in: Greater than 2 days Physician Review Additional Text: Impression: Abdominal pain, nausea and vomiting secondary to mechanical small bowel obstruction. History of colon cancer with previous bowel obstructions Possible left-sided pneumonia suspicious for aspiration versus atelectasis Chronic atrial fibrillation not on chronic anti coagulation due to risk of bleeding Hypertension Parkinson's disease Seizure disorder Vascular Dementia BPH Urinary incontinence History of CVA COPD Plan: Abdominal pain, nausea and vomiting secondary to mechanical small bowel obstruction. History of colon cancer with previous bowel obstructions: Patient with NG tube in place. Will keep the patient NPO except medication since he is taking multiple medications for multiple illnesses. Will continue to monitor closely. Patient with history of colon cancer and previous bowel obstructions. Surgery consulted. Will try to ambulate if the patient is stable. Encourage incentive spirometer. Will provide medication for nausea. IV antibiotics therapy started. Continue IV fluids. Will monitor closely. Continue to monitor electrolytes. Hopefully the patient will not require surgical intervention as previous obstructions have resolved on their own. Possible left-sided pneumonia suspicious for aspiration versus atelectasis: X- ray reviewed. Suspect atelectasis as pro calcitonin negative with white count within normal range as well. Will recheck chest x-ray tomorrow. Will maintain sats above 90%. Patient also being treated for COPD. Aspiration precaution in place. Chronic atrial fibrillation not on chronic anti coagulation due to risk of bleeding: Will continue with his rate control medication. Will start Lovenox at 1 milligram/kilogram subcu twice daily while in the hospital. Hypertension: Will restart his blood pressure medication. Will monitor and adjust appropriately. Parkinson's disease: Will restart his medication. Seizure disorder: Will restart his medication. Vascular Dementia: Will continue with his medication. Patient recently started risperidone about about 2-4 weeks ago for agitation. This is the only new change in his medications. Urinary incontinence: Will continue with his medication. BPH: Will continue with medication. History of CVA: Overall stable. Will monitor closely. Will get physical therapy to ambulate once patient is doing well. Depression: Continue with medication Time Spent Managing Pts Care (In Minutes): 55
[2018-08-12] MEDS ORDERED: ALBUTEROL 2.5 MG/3 ML NEB SOL NEB PRN (08:11)
[2018-08-12] MEDS: MEMANTINE HCL PO SCH (09:00)
[2018-08-12] MEDS: TAMSULOSIN HCL PO SCH (09:00)
[2018-08-12] MEDS: DUTASTERIDE PO SCH (09:00)
[2018-08-12] MEDS: SOLIFENACIN SUCCIN 5 MG TAB PO SCH (10:16)
[2018-08-12] MEDS: NEBIVOLOL HCL 5 MG TAB PO SCH (10:16)
[2018-08-12] MEDS: PHENYTOIN ER 100 MG CAP PO SCH ×4 (10:16→21:01)
[2018-08-12] MEDS: BUSPIRONE HCL 5 MG TABLET PO SCH ×3 (10:16→21:00)
[2018-08-12] MEDS: CARBIDOPA/LEVODOPA 25/100 TAB PO SCH ×3 (10:17→21:01)
[2018-08-12] MEDS: QUETIAPINE 25 MG TAB PO SCH ×4 (10:17→21:01)
[2018-08-12] MEDS: RISPERIDONE 0.25 MG TABLET PO SCH (10:17)
[2018-08-12] MEDS: lamoTRIgine 100 MG TAB PO SCH ×2 (10:17→21:01)
[2018-08-12] MEDS: ENOXAPARIN 60 MG/0.6 ML SQ SCH ×2 (10:19→19:00)
--- NOTE | 2018-08-12 10:57 | EKG ---
Test Date: 2018-08-11 Test Time: 19:07:14 [employer] Cutter: CARLOS MEASUREMENT RESULTS: Intervals: Rate: 96 ND: QRSD: 120 QT: 384 QTc: 485 [place]: P: ND: QRS: -3 T: 65 INTERPRETIVE STATEMENTS: Atrial fibrillation with premature ventricular or aberrantly conducted complexes Nonspecific intraventricular conduction delay Abnormal ECG Compared to ECG 05/12/2018 04:34:29 Ventricular premature complex(es) now present Intraventricular conduction delay now present ST (T wave) deviation no longer present Electronically Signed On 08-12-18 10:55:31 CDT by Vicente Guzman
[2018-08-12] MEDS: ARFORMOTEROL TARTRATE 15 MCG/2 ML VIAL.NEB NEB SCH (20:24)
[2018-08-12] MEDS: VALSARTAN 80 MG TAB PO SCH (21:00)
[2018-08-12] MEDS ORDERED: AMLODIPINE 5 MG TAB PO SCH (21:00)
[2018-08-12] MEDS ORDERED: VALSARTAN 80 MG TAB PO SCH (21:00)
[2018-08-12] MEDS: TAMSULOSIN 0.4 MG SR CAP PO SCH (21:01)
[2018-08-12] MEDS: TRAZODONE 50 MG TABLET PO SCH (21:01)
[2018-08-12] MEDS: Levofloxacin500mg IV 500 MG/100 ML BAG IV SCH (21:02)
[2018-08-13] MEDS: NEBIVOLOL HCL 5 MG TAB PO SCH (05:48)
[2018-08-13] MEDS: METRONIDAZOLE 500mg IVPB 500 MG/100 ML BAG IV SCH ×3 (05:48→22:01)
[2018-08-13] MEDS: ENOXAPARIN 60 MG/0.6 ML SQ SCH ×2 (07:00→18:25)
[2018-08-13 07:29] LABS: Magnesium 2.1 mg/dL (1.8-2.4); Potassium 3.9 mmol/L (3.5-5.1)
[2018-08-13] MEDS ORDERED: HYDRALAZINE HCL 25 MG TABLET PO PRN (07:31)
[2018-08-13] MEDS: ARFORMOTEROL TARTRATE 15 MCG/2 ML VIAL.NEB NEB SCH ×2 (08:00→19:28)
--- NOTE | 2018-08-13 08:58 | P.PN ---
Subjective Date of Service: 08/13/18 Primary Care Provider: Dr. Ana Rosa Cooney([place]) Chief Complaint: Small-bowel obstruction Subjective: Improving (Family and patient reports that he has passed gas. Patient feels better. Mentally much improved) Physical Examination - Vital Signs Temperature: 97.1 F Blood Pressure: 136/74 Pulse: 89 Respirations: 20 Pulse Ox (%): 93 - Physical Exam General: Alert, In no apparent distress, Cooperative HEENT: Atraumatic Neck: Supple Respiratory: Clear to auscultation bilaterally, Normal air movement Cardiovascular: Normal pulses, Regular rate/rhythm Gastrointestinal: Normal bowel sounds, Soft and benign, Non-distended, No tenderness (No pain noted.), No masses, No rebound, No guarding Musculoskeletal: No erythema, No tenderness, No warmth Integumentary: No erythema, No warmth, No cyanosis Neurological: Normal speech, Normal strength at 5/5 x4 extr, Normal tone, Normal affect - Studies Medications List Reviewed: Yes Assessment & Plan Plan to discharge in: 24 Hours Physician Review Additional Text: Impression: Abdominal pain, nausea and vomiting secondary to mechanical small bowel obstruction. History of colon cancer with previous bowel obstructions Possible left-sided pneumonia suspicious for aspiration versus atelectasis Chronic atrial fibrillation not on chronic anti coagulation due to risk of bleeding Hypertension Parkinson's disease Seizure disorder Vascular Dementia BPH Urinary incontinence History of CVA COPD Plan: Abdominal pain, nausea and vomiting secondary to mechanical small bowel obstruction. History of colon cancer with previous bowel obstructions: Patient much improved. He has passed gas. Will discuss with surgery. Anticipate patient may be started on clears today and possibly advance to soft diet. Encourage ambulation. Will consult physical therapy. Will provide incentive spirometer. Will adjust IV fluids. Possible removal of NG tube today. Possible discharge in the next 1-2 days if bowel obstruction resolved. Possible left-sided pneumonia suspicious for aspiration versus atelectasis: X- ray reviewed. Suspect atelectasis as pro calcitonin negative with white count within normal range as well. Will check x-ray today. Continue incentive spirometer. Wean off oxygen. Continue with COPD treatment. Aspiration precaution in place. Chronic atrial fibrillation not on chronic anti coagulation due to risk of bleeding: Will continue with his rate control medication. Continue with Lovenox at 1 milligram/kilogram subcu twice daily while in the hospital. Hypertension: Continue with his blood pressure medication. Will monitor and adjust appropriately. Parkinson's disease: Will continue his medication. Seizure disorder: Will continue his medication. Vascular Dementia: Will continue with his medication. Patient recently started risperidone about about 2-4 weeks ago for agitation. This is the only new change in his medications. Urinary incontinence: Will continue with his medication. BPH: Will continue with medication. History of CVA: Overall stable. Will monitor closely. Will get physical therapy to ambulate once patient is doing well. Depression: Continue with medication Time Spent Managing Pts Care (In Minutes): 55
[2018-08-13] MEDS: MEMANTINE HCL PO SCH (09:00)
[2018-08-13] MEDS: DUTASTERIDE PO SCH (09:00)
[2018-08-13] MEDS: TAMSULOSIN HCL PO SCH (09:00)
[2018-08-13 09:01] LABS: Absolute Lymphocytes (CBC) 0.9 K/uL (0.7-4.9); Absolute Monocytes 0.4 K/uL (0.1-1.3); Absolute Neutrophil 6.2 K/uL (1.8-8.0); Basophils % 0.2 % (0-1.3); Eosinophils % 0.5 % (0-4.4); Hematocrit 38.6 % (39.6-49.0); Lymphocytes % 12.1 % (15.3-44.8); MCH 30.2 pg (27.0-35.0); MCV 90.4 fL (80-100); MPV 9.2 fL (7.6-11.3); Monocytes % 5.7 % (3.3-12.3); RBC Red Blood Cell Count 4.27 M/uL (4.33-5.43)
[2018-08-13] MEDS: PHENYTOIN ER 100 MG CAP PO SCH ×4 (09:26→22:06)
[2018-08-13] MEDS: RISPERIDONE 0.25 MG TABLET PO SCH (09:26)
[2018-08-13] MEDS: SOLIFENACIN SUCCIN 5 MG TAB PO SCH (09:26)
[2018-08-13] MEDS: BUSPIRONE HCL 5 MG TABLET PO SCH ×3 (09:26→22:02)
[2018-08-13] MEDS: QUETIAPINE 25 MG TAB PO SCH ×4 (09:26→22:04)
[2018-08-13] MEDS: HYDRALAZINE HCL 25 MG TABLET PO SCH ×4 (09:27→22:03)
[2018-08-13] MEDS: lamoTRIgine 100 MG TAB PO SCH ×2 (09:27→22:02)
[2018-08-13] MEDS: CARBIDOPA/LEVODOPA 25/100 TAB PO SCH ×3 (09:27→22:05)
--- NOTE | 2018-08-13 11:41 | RAD REPORT ---
EXAM DESCRIPTION: RAD - Chest Single View - 08/13/2018 6:06 am CLINICAL HISTORY: follow atelectasis v pneumonia Chest pain. COMPARISON: Chest Single View dated 08/11/2018; Chest Single View dated 05/12/2018; Chest Single View dated 04/30/2018; Chest Single View dated 04/28/2018 FINDINGS: Portable technique limits examination quality. Mild bilateral pulmonary opacities are noted, slightly worse than on the comparative study, probably representing worsening pneumonia or pulmonary edema. The heart is upper limit normal size. No displac ed fractures.Nasogastric tube descends in the stomach. IMPRESSION: Mild worsening bilateral lung aeration since comparative study.
[2018-08-13] MEDS: NA CHLORIDE 0.9% 1,000 ML IV SCH ×2 (13:49→22:15)
[2018-08-13] MEDS: VALSARTAN 80 MG TAB PO SCH (22:04)
[2018-08-13] MEDS: TRAZODONE 50 MG TABLET PO SCH (22:04)
[2018-08-13] MEDS: TAMSULOSIN 0.4 MG SR CAP PO SCH (22:04)
[2018-08-13] MEDS: Levofloxacin500mg IV 500 MG/100 ML BAG IV SCH (23:42)
--- NOTE | 2018-08-14 03:12 | PN ---
Date of Progress Note: 08/13/2018 Subjective: Patient is doing well, starting to pass some gas from below, less distended. No nausea, no vomiting. Review of Systems: Ten points otherwise unremarkable. Physical Examination: General: The patient is awake, alert, in no distress, cooperative. HEENT: Pupil equal and reactive, anicteric. Neck: Supple. Abdomen: Soft and depressible. Softly distended. No guarding or rebound. Extremities: Good capillary refill. Laboratory Data: Blood work shows WBC count of 7.6. Bicarb is 23. Chest x-ray shows NG tube in the stomach, bilateral pulmonary opacities. Assessment: An 87-year-old patient with small bowel obstruction. Clinically, he is improving, start ing to pass some gas. We are going to get an x-ray in the morning to see if we have any improvement of his small bowel obstruction since it has been recurrent, and he preferred conservative treatment. No surgical intervention at this time. AMBER/MARILYN Voice ID: [id number] Report ID: [id number]
[2018-08-14 04:28] LABS: Absolute Lymphocytes (CBC) 0.9 K/uL (0.7-4.9); Absolute Monocytes 0.5 K/uL (0.1-1.3); Absolute Neutrophil 6.5 K/uL (1.8-8.0); Basophils % 0.1 % (0-1.3); Eosinophils % 0.4 % (0-4.4); Hematocrit 35.1 % (39.6-49.0); Lymphocytes % 11.1 % (15.3-44.8); MCH 31.1 pg (27.0-35.0); MCV 89.4 fL (80-100); MPV 9.3 fL (7.6-11.3); Monocytes % 6.5 % (3.3-12.3); RBC Red Blood Cell Count 3.93 M/uL (4.33-5.43)
[2018-08-14 04:46] LABS: BUN Blood Urea Nitrogen 17 mg/dL (7-18); Bicarbonate 23 mmol/L (21-32); Glucose Level 177 mg/dL (74-106); Potassium 3.2 mmol/L (3.5-5.1); Sodium Level 142 mmol/L (136-145)
[2018-08-14] MEDS: NEBIVOLOL HCL 5 MG TAB PO SCH (06:03)
[2018-08-14] MEDS: METRONIDAZOLE 500mg IVPB 500 MG/100 ML BAG IV SCH ×3 (06:03→21:48)
[2018-08-14] MEDS: NA CHLORIDE 0.9% 1,000 ML IV SCH (07:00)
[2018-08-14] MEDS: ENOXAPARIN 60 MG/0.6 ML SQ SCH ×2 (07:00→18:09)
[2018-08-14] MEDS: ARFORMOTEROL TARTRATE 15 MCG/2 ML VIAL.NEB NEB SCH ×2 (08:47→20:13)
[2018-08-14] MEDS: TAMSULOSIN HCL PO SCH (09:00)
[2018-08-14] MEDS: MEMANTINE HCL PO SCH (09:00)
[2018-08-14] MEDS: DUTASTERIDE PO SCH (09:00)
[2018-08-14] MEDS: lamoTRIgine 100 MG TAB PO SCH ×2 (09:43→21:51)
[2018-08-14] MEDS: RISPERIDONE 0.25 MG TABLET PO SCH (09:43)
[2018-08-14] MEDS: QUETIAPINE 25 MG TAB PO SCH ×4 (09:43→21:49)
[2018-08-14] MEDS: HYDRALAZINE HCL 25 MG TABLET PO SCH ×4 (09:43→21:48)
[2018-08-14] MEDS: CARBIDOPA/LEVODOPA 25/100 TAB PO SCH ×3 (09:43→21:49)
[2018-08-14] MEDS: PHENYTOIN ER 100 MG CAP PO SCH ×4 (09:44→21:50)
[2018-08-14] MEDS: SOLIFENACIN SUCCIN 5 MG TAB PO SCH (09:50)
[2018-08-14] MEDS: BUSPIRONE HCL 5 MG TABLET PO SCH ×3 (09:50→21:50)
--- NOTE | 2018-08-14 11:34 | P.PN ---
Subjective Date of Service: 08/14/18 Primary Care Provider: Dr. Ana Rosa Cooney([place]) Chief Complaint: Small-bowel obstruction Subjective: Improving (Patient doing well. Patient passing gas and stool. No abdominal pain noted. Patient tolerated clear liquid diet. Patient desires more.) Physical Examination - Vital Signs Temperature: 97.4 F Blood Pressure: 146/90 Pulse: 103 Respirations: 20 Pulse Ox (%): 99 - Physical Exam General: Alert, In no apparent distress, Oriented x3, Cooperative HEENT: Atraumatic Neck: Supple Respiratory: Clear to auscultation bilaterally, Normal air movement Cardiovascular: Normal pulses, Regular rate/rhythm Gastrointestinal: Normal bowel sounds, Soft and benign, Non-distended, No tenderness, No masses, No rebound, No guarding Musculoskeletal: No erythema, No tenderness, No warmth Integumentary: No tenderness/swelling, No erythema, No warmth, No cyanosis Neurological: Normal speech, Normal strength at 5/5 x4 extr, Normal tone, Normal affect - Studies Medications List Reviewed: Yes Assessment & Plan Discharge Plan: Other (Assisted living facility) Plan to discharge in: 24 Hours Physician Review Additional Text: Impression: Abdominal pain, nausea and vomiting secondary to mechanical small bowel obstruction. History of colon cancer with previous bowel obstructions Possible left-sided pneumonia suspicious for aspiration versus atelectasis Chronic atrial fibrillation not on chronic anti coagulation due to risk of bleeding Hypertension Parkinson's disease Seizure disorder Vascular Dementia BPH Urinary incontinence History of CVA COPD Plan: Abdominal pain, nausea and vomiting secondary to mechanical small bowel obstruction. History of colon cancer with previous bowel obstructions: Patient much improved. Small bowel obstruction resolved. Will advance diet to soft diet. If tolerates diet then patient can be discharged to assisted living facility. Dietary changes addressed in detail with patient and family. Prevention of future bowel obstructions will depend on dietary changes. Patient and family understand this in detail. Possible left-sided pneumonia suspicious for aspiration versus atelectasis: X- ray reviewed. Suspect atelectasis as pro calcitonin negative with white count within normal range as well. Continue with incentive spirometer. Continue with COPD medication. Chronic atrial fibrillation not on chronic anti coagulation due to risk of bleeding: Will continue with his rate control medication. No need for chronic anti coagulation therapy at discharge. Hypertension: Continue with his blood pressure medication. Will monitor and adjust appropriately. Parkinson's disease: Will continue his medication. Seizure disorder: Will continue his medication. Vascular Dementia: Will continue with his medication. Patient recently started risperidone about about 2-4 weeks ago for agitation. This is the only new change in his medications. Urinary incontinence: Will continue with his medication. BPH: Will continue with medication. History of CVA: Overall stable. Will monitor closely. Will get physical therapy to ambulate once patient is doing well. Depression: Continue with medication Anticipate discharge later today if tolerates diet. If the patient requires one more day, I plan to turn the service over to Dr Delaney tomorrow who will take go over. I will go over the plan of care with him. Time Spent Managing Pts Care (In Minutes): 55
[2018-08-14] MEDS: NACHLORIDE 0.45% 1,000 ML IV SCH ×2 (12:00→21:48)
--- NOTE | 2018-08-14 13:27 | RAD REPORT ---
EXAM DESCRIPTION: RAD - Abdomen W Erect - 08/14/2018 1:17 pm CLINICAL HISTORY: Abdominal pain FINDINGS: Moderately dilated small bowel is without significant change from a 08/11/2018 cat scan co nsistent with an obstruction Free air is not seen
[2018-08-14] MEDS: Levofloxacin500mg IV 500 MG/100 ML BAG IV SCH (21:48)
[2018-08-14] MEDS: TRAZODONE 50 MG TABLET PO SCH (21:49)
[2018-08-14] MEDS: VALSARTAN 80 MG TAB PO SCH (21:50)
[2018-08-14] MEDS: TAMSULOSIN 0.4 MG SR CAP PO SCH (21:53)
[2018-08-15 04:18] LABS: Absolute Lymphocytes (CBC) 0.8 K/uL (0.7-4.9); Absolute Monocytes 0.5 K/uL (0.1-1.3); Absolute Neutrophil 5.2 K/uL (1.8-8.0); Basophils % 0.1 % (0-1.3); Eosinophils % 1.2 % (0-4.4); Hematocrit 34.4 % (39.6-49.0); Lymphocytes % 12.4 % (15.3-44.8); MCH 30.6 pg (27.0-35.0); MCV 89.4 fL (80-100); MPV 9.4 fL (7.6-11.3); Monocytes % 7.4 % (3.3-12.3); RBC Red Blood Cell Count 3.85 M/uL (4.33-5.43)
[2018-08-15 04:28] LABS: BUN Blood Urea Nitrogen 13 mg/dL (7-18); Bicarbonate 24 mmol/L (21-32); Glucose Level 147 mg/dL (74-106); Potassium 3.1 mmol/L (3.5-5.1); Sodium Level 144 mmol/L (136-145)
[2018-08-15] MEDS: METRONIDAZOLE 500mg IVPB 500 MG/100 ML BAG IV SCH ×3 (05:04→20:47)
[2018-08-15] MEDS: NEBIVOLOL HCL 5 MG TAB PO SCH (05:05)
[2018-08-15] MEDS ORDERED: FUROSEMIDE 20 MG/ 2ML VIAL IV ONE ×3 (05:32→09:41)
[2018-08-15] MEDS: ENOXAPARIN 60 MG/0.6 ML SQ SCH ×2 (06:12→18:54)
[2018-08-15 06:14] LABS: NT PRO-BNP 7857 pg/mL (<450)
--- NOTE | 2018-08-15 07:59 | RAD REPORT ---
EXAM DESCRIPTION: [place] Single View08/15/2018 6:04 am CLINICAL HISTORY: Shortness of breath COMPARISON: 08/13/2018 FINDINGS: Worsening in bilateral pulmonary opacities has occurred. Small pleural effusions are susp ected. The heart is mildly enlarged IMPRESSION: Worsening in bilateral pulmonary opacities which could represent pneumonia or pulmonary edema
[2018-08-15] MEDS: ARFORMOTEROL TARTRATE 15 MCG/2 ML VIAL.NEB NEB SCH ×2 (08:22→20:22)
[2018-08-15] MEDS: DUTASTERIDE PO SCH (09:00)
[2018-08-15] MEDS: TAMSULOSIN HCL PO SCH (09:00)
[2018-08-15] MEDS: MEMANTINE HCL PO SCH (09:00)
[2018-08-15] MEDS: RISPERIDONE 0.25 MG TABLET PO SCH (09:31)
[2018-08-15] MEDS: CARBIDOPA/LEVODOPA 25/100 TAB PO SCH ×3 (09:31→20:48)
[2018-08-15] MEDS: BUSPIRONE HCL 5 MG TABLET PO SCH ×3 (09:31→20:48)
[2018-08-15] MEDS: lamoTRIgine 100 MG TAB PO SCH ×2 (09:31→20:50)
[2018-08-15] MEDS: QUETIAPINE 25 MG TAB PO SCH ×4 (09:31→20:49)
[2018-08-15] MEDS: SOLIFENACIN SUCCIN 5 MG TAB PO SCH (09:31)
[2018-08-15] MEDS: PHENYTOIN ER 100 MG CAP PO SCH ×4 (09:32→20:48)
[2018-08-15] MEDS: HYDRALAZINE HCL 25 MG TABLET PO SCH ×4 (09:32→20:49)
[2018-08-15] MEDS: IPRATROPIUM BROM 0.5MG/2.5ML NEB PRN ×2 (13:25→20:22)
[2018-08-15] MEDS ORDERED: POTASSIUM 25 MEQ EFFERV TAB PO ONE ×2 (15:00→21:35)
[2018-08-15] MEDS: GUAIFENESIN/CODEINE 5ML UCUP PO PRN (17:30)
--- NOTE | 2018-08-15 18:01 | PN ---
Date of Progress Note: 08/15/2018 Subjective: The patient seen, examined, chart reviewed, and case discussed with RN. The patient heather arently was doing better yesterday, however, much more lethargic today, sounds rattly and coughing up without any mucus. Review of Systems: Negative except as above. Medications: List reviewed. Code Status: Do not resuscitate. Physical Examination: Vital Signs: Temperature 97.9, heart rate 98, blood pressure 115/72, respirations 32, O2 95% on 4 L via nasal cannula. General: Awake, alert, oriented x3. Some mild distress. Elderly male, ill appearing. CV: S1, S2. Irregularly irregular. Peripheral pulses present. Respiratory: Diminished breath sounds. Some crackles heard throughout. Gastrointestinal: Abdomen is soft, nontender, nondistended. Positive bowel sounds. Extremities: No clubbing, cyanosis. There is some trace pedal edema. Neurologic: Nonfocal. Laboratory Data: Sodium 144, potassium 3.1, chloride 111, CO2 24, BUN 13, creatinine 0.6, glucose 14 7, calcium 7.9, magnesium 2, BNP 7857. WBC 6.6, H and H 11.8, 34.4, platelets 123, neutrophils 78%. Blood cultures pending. Chest x-ray, personally reviewed, shows worsening bilateral pulmonary opaci ties, which could represent pneumonia or pulmonary edema. Abdominal x-ray shows moderately dilated s mall bowel without significant change. This was from 08/14/2018. Assessment And Plan: An 87-year-old male with. 1.Abdominal pain, nausea, vomiting secondary to mechanical small bowel obstruction. The patient has history of colon cancer with previous bowel obstructions, multiple admissions for similar issues is significantly improved and will advance the soft diet, tolerating clears, passing gas, and having bow el movement. 2.Shortness of breath, cough likely related to pulmonary edema, more so than pneumonia on chest x-ra y. We will continue incentive spirometer and Lasix. 3.Chronic atrial fibrillation, not on chronic anticoagulation due to risk of bleed. Continue weight control. 4.Essential hypertension, stable. Continue home medications. 5.Parkinson disease, stable on home medications. 6.Seizure disorder. Seizure precautions. No seizure episodes. 7.Vascular dementia. Continue risperidone recently started about 2-4 weeks ago. 8.Urinary incontinence. 9.Benign prostatic hypertrophy. Continue home medications. 10.History of cerebrovascular accident. Continue PT and ambulate patient. 11.Major depressive disorder. Continue home medications. Plan: Advance diet to soft. Continue with diuresis, likely discharge in the next 24 hours if contin ues to improve, strict I's and O's, daily weights. /MARILYN Voice ID: [id number] Report ID: [id number]
[2018-08-15] MEDS: Levofloxacin500mg IV 500 MG/100 ML BAG IV SCH (20:47)
[2018-08-15] MEDS: BENZONATATE 100 MG CAP PO SCH (20:47)
[2018-08-15] MEDS: TAMSULOSIN 0.4 MG SR CAP PO SCH (20:48)
[2018-08-15] MEDS: VALSARTAN 80 MG TAB PO SCH (20:49)
[2018-08-15] MEDS: TRAZODONE 50 MG TABLET PO SCH (20:49)
[2018-08-15] MEDS ORDERED: ALBUMIN HUMAN 25% 100 ML IV ONE (22:57)
[2018-08-15] MEDS ORDERED: FUROSEMIDE 40 MG/4 ML VIAL IV ONE (22:59)
[2018-08-16] MEDS: ALBUMIN HUMAN 25% 50 ML IV SCH ×2 (00:14→00:35)
[2018-08-16] MEDS: GUAIFENESIN/CODEINE 5ML UCUP PO PRN (01:31)
[2018-08-16] MEDS: ONDANSETRON 4 MG/2 ML VIAL IV PRN (02:04)
[2018-08-16] MEDS: METRONIDAZOLE 500mg IVPB 500 MG/100 ML BAG IV SCH ×3 (05:50→20:36)
[2018-08-16] MEDS: NEBIVOLOL HCL 5 MG TAB PO SCH (05:50)
[2018-08-16] MEDS: ENOXAPARIN 60 MG/0.6 ML SQ SCH (06:00)
[2018-08-16 06:20] LABS: BUN Blood Urea Nitrogen 12 mg/dL (7-18); Bicarbonate 31 mmol/L (21-32); Glucose Level 158 mg/dL (74-106); Magnesium 1.9 mg/dL (1.8-2.4); Potassium 3.4 mmol/L (3.5-5.1); Sodium Level 142 mmol/L (136-145)
[2018-08-16] MEDS ORDERED: POTASSIUM 25 MEQ EFFERV TAB PO ONE (06:22)
[2018-08-16 06:38] LABS: Absolute Lymphocytes (CBC) 0.8 K/uL (0.7-4.9); Absolute Monocytes 0.6 K/uL (0.1-1.3); Absolute Neutrophil 5.5 K/uL (1.8-8.0); Basophils % 0.2 % (0-1.3); Eosinophils % 1.8 % (0-4.4); Hematocrit 34.8 % (39.6-49.0); Lymphocytes % 11.7 % (15.3-44.8); MCH 31.2 pg (27.0-35.0); MCV 89.8 fL (80-100); MPV 9.6 fL (7.6-11.3); Monocytes % 8.2 % (3.3-12.3); RBC Red Blood Cell Count 3.87 M/uL (4.33-5.43)
--- NOTE | 2018-08-16 08:21 | RAD REPORT ---
EXAM DESCRIPTION: RAD - Chest Single View - 08/16/2018 6:26 am CLINICAL HISTORY: pulmonary edema Chest pain. COMPARISON: Chest Single View dated 08/15/2018; Chest Single View dated 08/13/2018; Chest Single View dated 08/11/2018; Chest Single View dated 05/12/2018 FINDINGS: Portable technique limits examination quality. Since 08/15/2018, there has been moderate improvement in bilateral pulmonary opacities likely indicat ing improving pulmonary edema or pneumonia. Small pleural effusions also appear reduced in size. Mild cardiomegaly persists. No displaced fractures. IMPRESSION: Moderate improvement in lung aeration since comparative study.
[2018-08-16] MEDS: BENZONATATE 100 MG CAP PO SCH ×2 (08:33→20:36)
[2018-08-16] MEDS: BUSPIRONE HCL 5 MG TABLET PO SCH ×3 (08:34→20:36)
[2018-08-16] MEDS: SOLIFENACIN SUCCIN 5 MG TAB PO SCH (08:34)
[2018-08-16] MEDS: RISPERIDONE 0.25 MG TABLET PO SCH (08:34)
[2018-08-16] MEDS: lamoTRIgine 100 MG TAB PO SCH ×2 (08:35→20:37)
[2018-08-16] MEDS: QUETIAPINE 25 MG TAB PO SCH ×4 (08:35→20:37)
[2018-08-16] MEDS: CARBIDOPA/LEVODOPA 25/100 TAB PO SCH ×3 (08:35→20:38)
[2018-08-16] MEDS: PHENYTOIN ER 100 MG CAP PO SCH ×4 (08:35→20:37)
[2018-08-16] MEDS: HYDRALAZINE HCL 25 MG TABLET PO SCH ×4 (08:36→20:38)
[2018-08-16] MEDS: DUTASTERIDE PO SCH (08:36)
[2018-08-16] MEDS: MEMANTINE HCL PO SCH (08:36)
[2018-08-16] MEDS: TAMSULOSIN HCL PO SCH (08:36)
--- NOTE | 2018-08-16 09:30 | RAD REPORT ---
EXAM DESCRIPTION: RAD - Abdomen W Erect - 08/16/2018 9:14 am CLINICAL HISTORY: N/V Pain COMPARISON: Abdomen W Erect dated 08/14/2018; Stone Protocol dated 08/11/2018 FINDINGS: Dilatation of multiple small bowel loops in the central abdomen is again noted compatible with mechanical small-bowel obstruction. Overall, no significant change is seen since comparative lisa ging. No pneumoperitoneum.
[2018-08-16] MEDS ORDERED: FUROSEMIDE 20 MG/ 2ML VIAL IV ONE (09:35)
[2018-08-16] MEDS: ARFORMOTEROL TARTRATE 15 MCG/2 ML VIAL.NEB NEB SCH ×2 (09:52→19:45)
--- NOTE | 2018-08-16 16:14 | PN ---
Date of Progress Note: 08/16/2018 Subjective: The patient seen and examined, chart reviewed, and case discussed with RN and Dr. Sree gutierres. The patient states that his breathing has improved. Able to tolerate his diet, however, did not eat much for breakfast this morning according to caregiver. Review of Systems: Negative except as above. Medications: List reviewed. Objective: Vital Signs: Temperature 97.6, heart rate 119, blood pressure 129/71, respirations 24, O 2 95% on 4 L via nasal cannula. General: Awake, alert, oriented x3, in no acute distress. Elderly male. CV: S1, S2. Irregularly irregular. Peripheral pulses present. Respiratory: Moving air well bilaterally. No wheezing or stridor. Gastrointestinal: Abdomen is soft, mildly distended. Nontender. Positive bowel sounds. No guardin g or rigidity. Hernias present. Extremities: No clubbing, cyanosis, edema. Neurologic: Nonfocal. Laboratory Data: Sodium 142, potassium 3.4, chloride 105, CO2 31, BUN 12, creatinine 0.8, glucose 15 8, calcium 8.3, magnesium 1.9. WBC 7, H and H 12.1, 34.8, platelets 119, neutrophils 78%. Blood cul tures no growth to date. Chest x-ray, personally reviewed, shows moderate improvement in lung aerati on since comparative study. Mild cardiomegaly, small pleural effusions, appeared reduced to its size . Abdominal x-ray does shows dilatation of multiple small bowel loops in central abdomen, compatible with mechanical small bowel obstruction. No significant change in comparison. No pneumoperitoneum. Assessment And Plan: An 87-year-old male with. 1.Abdominal pain, nausea, vomiting secondary to mechanical small bowel obstruction. The patient has history of colon cancer with previous bowel obstructions, multiple surgeries in the past. For now, patient seems to be improving his diet. Clinically looks significantly better, passing gas. We will obtain small bowel series. Appreciate Dr. Quiñones's input. 2.Shortness of breath related to pulmonary edema from fluid overload without pneumonia. The patient 's chest x-ray shows improvement with Lasix. We will continue diuresis. 3.Chronic atrial fibrillation, not on anticoagulation due to risk of bleed. We will continue rate c ontrol. 4.Essential hypertension, stable. 5.Parkinson disease, stable. 6.Seizure disorder. We will continue precautions. No seizure episodes. Continue home medications. 7.Vascular dementia. 8.Urinary incontinence. 9.Benign prostatic hypertrophy. Continue home medications. 10.History of cerebrovascular accident. Continue PT. 11.Major depressive disorder, stable. Plan: Follow up with a small bowel series. Likely discharge in the next 24 hours if continues to im prove. /MARILYN Voice ID: [id number] Report ID: [id number]
[2018-08-16] MEDS: Levofloxacin500mg IV 500 MG/100 ML BAG IV SCH (20:35)
[2018-08-16] MEDS: VALSARTAN 80 MG TAB PO SCH (20:36)
[2018-08-16] MEDS: TAMSULOSIN 0.4 MG SR CAP PO SCH (20:37)
[2018-08-16] MEDS: TRAZODONE 50 MG TABLET PO SCH (20:38)
[2018-08-17] MEDS: METRONIDAZOLE 500mg IVPB 500 MG/100 ML BAG IV SCH ×3 (05:19→21:04)
[2018-08-17] MEDS: NEBIVOLOL HCL 5 MG TAB PO SCH (05:19)
[2018-08-17] MEDS: ONDANSETRON 4 MG/2 ML VIAL IV PRN (05:55)
[2018-08-17 07:05] LABS: Absolute Lymphocytes (CBC) 0.8 K/uL (0.7-4.9); Absolute Monocytes 0.6 K/uL (0.1-1.3); Absolute Neutrophil 8.9 K/uL (1.8-8.0); Basophils % 0.2 % (0-1.3); Eosinophils % 1.4 % (0-4.4); Hematocrit 36.9 % (39.6-49.0); Lymphocytes % 7.6 % (15.3-44.8); MCH 30.5 pg (27.0-35.0); MCV 89.7 fL (80-100); MPV 8.8 fL (7.6-11.3); Monocytes % 6.1 % (3.3-12.3); RBC Red Blood Cell Count 4.11 M/uL (4.33-5.43)
[2018-08-17 07:21] LABS: ALT/SGPT 8 U/L (12-78); AST/SGOT 13 U/L (15-37); Alkaline Phosphatase 93 U/L (45-117); BUN Blood Urea Nitrogen 13 mg/dL (7-18); Bicarbonate 30 mmol/L (21-32); Bilirubin Total 0.6 mg/dL (0.2-1.0); Glucose Level 174 mg/dL (74-106); Potassium 3.7 mmol/L (3.5-5.1); Protein, Total 5.8 g/dL (6.4-8.2); Sodium Level 140 mmol/L (136-145)
[2018-08-17] MEDS ORDERED: MORPHINE 4 MG/ML SYR IV PRN (08:58)
[2018-08-17] MEDS: DUTASTERIDE PO SCH (09:00)
[2018-08-17] MEDS: MEMANTINE HCL PO SCH (09:00)
[2018-08-17] MEDS: TAMSULOSIN HCL PO SCH (09:00)
[2018-08-17] MEDS: HYDRALAZINE HCL 25 MG TABLET PO SCH ×4 (09:00→21:06)
[2018-08-17] MEDS: RISPERIDONE 0.25 MG TABLET PO SCH (09:37)
[2018-08-17] MEDS: BENZONATATE 100 MG CAP PO SCH ×2 (09:37→21:05)
[2018-08-17] MEDS: SOLIFENACIN SUCCIN 5 MG TAB PO SCH (09:37)
[2018-08-17] MEDS: ARFORMOTEROL TARTRATE 15 MCG/2 ML VIAL.NEB NEB SCH ×2 (11:16→19:50)
[2018-08-17] MEDS: BUSPIRONE HCL 5 MG TABLET PO SCH ×3 (12:00→21:05)
[2018-08-17] MEDS: QUETIAPINE 25 MG TAB PO SCH ×4 (12:00→21:06)
[2018-08-17] MEDS: lamoTRIgine 100 MG TAB PO SCH ×2 (12:00→21:07)
[2018-08-17] MEDS: CARBIDOPA/LEVODOPA 25/100 TAB PO SCH ×3 (12:00→21:06)
[2018-08-17] MEDS: PHENYTOIN ER 100 MG CAP PO SCH ×4 (12:00→21:06)
--- NOTE | 2018-08-17 16:24 | PN ---
Date of Progress Note: 08/17/2018 Subjective: The patient seen and examined, chart reviewed and case discussed with RN and Dr. Chantell munoz. The patient had 2 large bowel movements today. Going for a HIDA scan. Review of Systems: Negative except as above. Medications: List reviewed. Objective: Vital Signs: Temperature 98.1, heart rate 105, blood pressure 96/60, respirations 18, O2 89% on 2 L via nasal cannula. GENERAL: Awake, alert, oriented x3, not in any acute distress. Elderly male. CV: S1, S2. Irregularly irregular. Peripheral pulses present. RESPIRATORY: Slightly diminished breath sounds at the bases, otherwise moving air well. No wheezing . Gastrointestinal: Abdomen is soft, nontender, nondistended. Positive bowel sounds. No guarding or rigidity. Extremities: No clubbing, cyanosis, or edema. Neurologic: Nonfocal. Laboratory Data: Sodium 140, potassium 3.7, chloride 105, CO2 30, BUN 13, creatinine 0.8, glucose 17 4, calcium 8.3. WBC 10.5, H and H 12.5 and 36.9, platelets 158, neutrophils 84%. Blood cultures neg ative, final. Small bowel series pending. Assessment And Plan: An 87-year-old male with: 1.Abdominal pain, nausea, vomiting secondary to mechanical small bowel obstruction. The patient lackey s have a history of colon cancer with previous bowel obstruction, improving clinically, significantly better. The patient had 2 large bowel movements. Small bowel series being obtained today. Appreci ate Dr. Quiñones's input. 2.Shortness of breath related to pulmonary edema from fluid overload. No pneumonia. Chest x-ray sh ows improvement. We will continue diuresis as needed. IV fluids discontinued. The patient tolerati ng diet. 3.Chronic atrial fibrillation, not on anticoagulation due to risk of bleed. Continue rate control. 4.Essential hypertension, stable. 5.Parkinson's disease, stable. 6.Seizure disorder. Continue seizure precautions. No episodes while in the hospital. Continue adiel e medications. 7.Vascular dementia without behavioral disturbance. 8.Urinary incontinence. 9.Benign prostatic hypertrophy. Continue home medications. 10.History of cerebrovascular accident. Continue PT. The patient doing well, ambulating with a wal ker. 11.Major depressive disorder, stable. Continue home medication. Plan: Follow up on small bowel series. If improved, will discharge home. SA/MODL Voice ID: [id number] Report ID: [id number]
[2018-08-17] MEDS ORDERED: POTASSIUM CL SA 10 MEQ TAB PO ONE (17:00)
--- NOTE | 2018-08-17 18:48 | RAD REPORT ---
EXAM DESCRIPTION: RAD - Small Bowel Series - 08/17/2018 1:45 pm CLINICAL HISTORY: Small bowel obstruction COMPARISON: CT study August 11 FINDINGS: Ring Packer film shows multiple dilated small bowel loops. No free air or pneumatosis. Phlebolit hs and vascular calcifications are present. Splenic artery is particularly densely calcified. Cholecy stectomy clips seen in the right upper quadrant. Reflux in the distal esophagus is observed. No gastric dilatation, abnormal wall thickening or mass. No delay in transit of contrast into the small bowel. Dilated small bowel loops are present. Small teresita wel diameter diminished over the course of the examination. No extravasation of contrast. Transit cecille e to the colon is 3.5 hours. IMPRESSION: Small bowel is not obstructed. Transit time to the colon is prolonged at 3.5 hours. Small bowel loops were initially dilated. Diameter decreased over the course of the examination.
[2018-08-17] MEDS: IPRATROPIUM BROM 0.5MG/2.5ML NEB PRN (19:50)
[2018-08-17] MEDS: Levofloxacin500mg IV 500 MG/100 ML BAG IV SCH (21:04)
[2018-08-17] MEDS: VALSARTAN 80 MG TAB PO SCH (21:05)
[2018-08-17] MEDS: TRAZODONE 50 MG TABLET PO SCH (21:06)
[2018-08-17] MEDS: TAMSULOSIN 0.4 MG SR CAP PO SCH (21:06)
[2018-08-17 22:14] VITALS: O2SAT 96
[2018-08-18] MEDS: METRONIDAZOLE 500mg IVPB 500 MG/100 ML BAG IV SCH ×2 (05:22→13:00)
[2018-08-18] MEDS: NEBIVOLOL HCL 5 MG TAB PO SCH (05:23)
[2018-08-18 05:48] LABS: BUN Blood Urea Nitrogen 13 mg/dL (7-18); Bicarbonate 25 mmol/L (21-32); Glucose Level 146 mg/dL (74-106); Magnesium 1.7 mg/dL (1.8-2.4); Potassium 3.7 mmol/L (3.5-5.1); Sodium Level 141 mmol/L (136-145)
[2018-08-18] MEDS ORDERED: MAGNESIUM SULFATE 1 gm IVPB 1 GM/100 ML BAG IV ONE (06:35)
[2018-08-18] MEDS ORDERED: POTASSIUM CL SA 10 MEQ TAB PO ONE (06:36)
[2018-08-18 06:45] VITALS: BMI 16.5
[2018-08-18] MEDS: ARFORMOTEROL TARTRATE 15 MCG/2 ML VIAL.NEB NEB SCH (07:54)
[2018-08-18] MEDS: IPRATROPIUM BROM 0.5MG/2.5ML NEB PRN (07:54)
[2018-08-18] MEDS: TAMSULOSIN HCL PO SCH (09:00)
[2018-08-18] MEDS: DUTASTERIDE PO SCH (09:00)
[2018-08-18] MEDS: MEMANTINE HCL PO SCH (09:00)
[2018-08-18] MEDS: BENZONATATE 100 MG CAP PO SCH (10:05)
[2018-08-18] MEDS: HYDRALAZINE HCL 25 MG TABLET PO SCH ×2 (10:05→13:37)
[2018-08-18] MEDS: CARBIDOPA/LEVODOPA 25/100 TAB PO SCH ×2 (10:05→13:35)
[2018-08-18] MEDS: BUSPIRONE HCL 5 MG TABLET PO SCH ×2 (10:05→13:33)
[2018-08-18] MEDS: QUETIAPINE 25 MG TAB PO SCH ×2 (10:06→13:30)
[2018-08-18] MEDS: RISPERIDONE 0.25 MG TABLET PO SCH (10:06)
[2018-08-18] MEDS: PHENYTOIN ER 100 MG CAP PO SCH ×2 (10:07→13:30)
[2018-08-18] MEDS: SOLIFENACIN SUCCIN 5 MG TAB PO SCH (10:07)
[2018-08-18] MEDS: lamoTRIgine 100 MG TAB PO SCH (10:08)
--- NOTE | 2018-08-18 14:22 | PN ---
Please note that I am covering for Dr. Quiñones on this patient. The patient's chart reviewed. All the studies and laboratory data reviewed. The patient is awake and alert. He is tolerating regular diet. He had a small bowel series done yesterday, which was negative. Transit time was 3.5 hours. There was no evidence of obstruction. He is passing gas and having bowel movements. Objective: Vital Signs: Stable. Afebrile. Abdomen: Soft, nondistended, and nontender. Positive bowel sounds. Assessment: Small bowel obstruction, resolved. Recommendations: Monitor his dietary intake and ensure he is clinically stable. He is cleared from Surgery standpoint for discharge. Followup with Dr. Ishmael CHAVES/MARILYN Voice ID: [id number] Report ID: [id number]
[2018-08-18 17:26] VITALS: BP 96/56; TEMP 97.5
--- NOTE | 2018-08-19 06:46 | DS ---
Date of Discharge: 08/18/2018 Admitting Diagnoses: 1.Pneumonia. 2.Small bowel obstruction. 3.Parkinson disease. 4.Generalized weakness. 5.Abdominal pain, nausea, vomiting, secondary to mechanical small bowel obstruction, resolved. 6.Shortness of breath related to pulmonary edema and fluid overload, resolved. 7.Chronic atrial fibrillation, not on anticoagulation due to risk of bleed. Continue rate control. 8.Essential hypertension. 9.Parkinson disease, stable. 10.Seizure disorder. 11.Vascular dementia without behavioral disturbance. 12.Urinary incontinence. 13.Benign prostatic hypertrophy. 14.History of cerebrovascular accident. 15.Major depressive disorder. Hospital Course: The patient is an 87-year-old male who has had recurrent admissions for similar iss ues of small-bowel obstruction. The patient was found to have elevated white blood cell count and CT abdomen showing small bowel obstruction. NG-tube was placed. He was started on antibiotics. The p atient was started on IV fluids and kept n.p.o. The patient's white count did improve and normalized . His blood cultures did not show any growth final. He did have some electrolyte abnormalities, whi ch were corrected. On admission, he had elevated lactate and possible sepsis. However, procalcitoni n was negative. White count normalized. There were no other signs or symptoms of pneumonia. The lisa cottrell does have atrial fibrillation and had a high heart rate secondary to his atrial fibrillation. The patient did have some improvement in his small bowel obstruction. Dr. Quiñones with General Surg heladio was consulted. The patient was started on clear liquid diet. Abdominal x-ray, however, showed a gain no improvement in dilated small bowels. Therefore, patient was switched back to a clear diet. His IV fluids, however, were discontinued due to pulmonary edema. He was given some Lasix and had si gnificant improvement. The patient did eventually have return of bowel function, had two large stool s, was passing gas. His distention was significantly improved. Small-bowel series was done which sh owed no obstruction. Transit time to the colon was prolonged at 3.5 hours. The patient does have he rnias and has some chronic obstruction processes, however did not require any surgical intervention. The patient was seen by Dr. Butler on the day of discharge, covering for Dr. Quiñones. The patient w as cleared from surgical standpoint. He was tolerating his diet well. He did not have any further p ain, nausea, or vomiting. The patient was then discharged back to assisted living facility with care givers. Medications: As per medication reconciliation list. Followup: Follow up with primary care physician in 1 week. Follow up with general surgeon, Dr. Kofi chen, in 2 weeks. Return to ER for worsening condition. Diet: Sanborn diet. Activity: Fall precautions. Physical Examination: General: Awake, alert, oriented, not in any acute distress. Elderly male. CV: S1, S2. No murmurs. Irregularly irregular. Peripheral pulses present. Respiratory: Moving air well bilaterally. No wheezing. Gastrointestinal: Abdomen is soft, nontender, nondistended. Positive bowel sounds. Extremities: No clubbing, cyanosis, edema. Neurologic: Nonfocal. Total time spent discharging the patient was 32 minutes. LION Voice ID: [id number] Report ID: [id number]
== END 2018-08-18 15:08 | DRG 388 ==
LOC: ER 16:24 → ERHOLD 18:24 → 4TH 19:21
PROVIDERS: ADMIT Internal Medicine; ATTEND Family Medicine
DX: K56.609 Unspecified intestinal obstruction, unspecified as to partial versus complete obstruction (principal); J18.9 Pneumonia, unspecified organism; I48.2 Chronic atrial fibrillation; I10 Essential (primary) hypertension; F01.50 Vascular dementia, unspecified severity, without behavioral disturbance, psychotic disturbance, mood disturbance, and anxiety; G20 Parkinson's disease; G40.909 Epilepsy, unspecified, not intractable, without status epilepticus; R32 Unspecified urinary incontinence; F32.9 Major depressive disorder, single episode, unspecified; N40.0 Benign prostatic hyperplasia without lower urinary tract symptoms; Z86.73 Personal history of transient ischemic attack (TIA), and cerebral infarction without residual deficits
CPT/HCPCS: 36415; 71045; 74019; 74176; 74250; 76377; 80048; 80053; 80076; 81003; 81015; 83605; 83690; 83735; 83880; 84132; 84145; 85025; 87040; 93005; 94640; 96360; 97163; 99285; J1650; J1940; J2405; J2550; J3475; J7030; J7605; P9047

== ENCOUNTER 2018-10-04 09:05 | Inpatient (IN) | payer OTHER ==
--- OUTSIDE RECORDS SUMMARY | 2018-10-04 09:08 | XMS REPORT | Clinical Summary ---
:1930 Author Organization [facility] Address [address] [place] [address] Care Team Providers Name Role Phone Ana Rosa Cooney MD Primary Care Provider Allergies No Known Allergies Medications Medication Sig Dispensed Refills Start Date End Date Status busPIRone (BUSPAR) 10 MG TAKE ONE (1) 04/25/2016 Active tablet TABLET(S) BY MOUTH TWICE A DAY. calcipotriene (DOVONOX) APPLY AND 06/15/2016 Active 0.005 % ointment GENTLY MASSAGE INTO AFFECTED AREA(S) TWICE A DAY. clobetasol (TEMOVATE) APPLY SPARINGLY 0 06/11/2016 Active 0.05 % cream TO AFFECTED AREA(S) TWICE A DAY. hydrochlorothiazide TAKE ONE (1) 04/25/2016 Active (MICROZIDE) 12.5 mg CAPSULE(S) BY capsule MOUTH ONCE A DAY. fluocinonide (LIDEX) 0.05 APPLY SPARINGLY 2 06/15/2016 Active % ointment TO AFFECTED AREA(S) TWICE A DAY. levocetirizine (XYZAL) 5 TAKE ONE (1) 05/10/2016 Active MG tablet TABLET(S) BY MOUTH ONCE A DAY. pantoprazole (PROTONIX) TAKE ONE (1) 06/08/2016 Active 40 MG EC tablet TABLET(S) BY MOUTH ONCE [...] BY MOUTH ONCE A DAY. triamcinolone (KENALOG) APPLY AND 0 06/11/2016 Active 0.1 % ointment GENTLY MASSAGE INTO AFFECTED AREA(S) TWICE A DAY. melatonin 10 mg capsule Take 3 mg by 0 Active mouth nightly. gabapentin (NEURONTIN) Take 100 mg by 0 Active 100 MG capsule mouth 3 (three) times a day. phenytoin (DILANTIN) 100 Take by mouth. 0 Active mg/4 mL suspension olmesartan (BENICAR) 20 Take 20 mg by 0 Active MG tablet mouth daily. polyethylene glycol Take 17 g by 0 Active (MIRALAX) 17 gram packet mouth daily. bisacodyl (DULCOLAX) 5 mg Take 5 mg by 0 Active EC tablet mouth daily as needed for constipation. Active Problems Problem Noted Date Nausea & vomiting Bowel obstruction Family History Medical History Relation Name Comments Cirrhosis Father Relation Name Status Comments Father Mother Social History Tobacco Use Types Packs/Day Years Used Date Former Smoker Alcohol Use Drinks/Week oz/Week Comments No Sex Assigned at Date Recorded Not on file Job Start Date Occupation Industry Not on file Not on file Not on file Travel History Travel Start Travel End No recent travel history available. Last Filed Vital Signs Not on file Plan of Treatment Health Maintenance Due Date Last Done Comments SHINGRIX VACCINE (1 of 2) 1979 ZOSTER VACCINE 1989 PNEUMOCOCCAL POLYSACCHARIDE VACCINE AGE 65 AND OVER 1994 PNEUMOCOCCAL-13 1994 INFLUENZA VACCINE 06/21/2018 Results Not on fileafter 10/03/2017 Insurance Payer Benefit Plan / Group Subscriber ID Type Phone Address SHELLEY [employer]ARD xxxxxxxxx MEDICARE MEDICARE PART A AND B xxxxxxxxxx Medicare [place], [place] AETNA MEDICARE AETNA MEDICARE HMO/PPO [facility] xxxxxxxxx HMO Advance Directives Patient has advance care planning documents on file. For more information, please contact:Kaushal Perez[address] [place] [address]
--- NOTE | 2018-10-04 11:18 | RAD REPORT ---
EXAM DESCRIPTION: CT - Abdomen Pelvis Wo Contrast - 10/04/2018 10:42 am CLINICAL HISTORY: Abdominal pain COMPARISON: July 2018 TECHNIQUE: Computed axial tomography of the abdomen and pelvis was obtained. IV and oral contrast we re not requested. All CT scans are performed using dose optimization technique as appropriate and may include automated exposure control or mA/KV adjustment according to patient size. FINDINGS: The evaluation of solid organs, vessels and bowel is limited secondary to the lack of con trast administration. Small pleural effusions are present. Mild patchy right lower lobe and lingular opacities are seen. Bi lateral pulmonary fibrosis is noted. The liver, spleen, pancreas, adrenals and kidneys demonstrate no significant abnormality. Coarse vascular calcifications are seen. The bowel caliber and wall thickness is normal. There is no evidence of diverticulitis. The prostate gland is markedly enlarged. Ventral hernias are unchanged. Left inguinal hernia contains fluid IMPRESSION: Small bilateral pleural effusions. Mild patchy right lower lobe and lingular opacities l ikely indicate a mild pneumonia Left inguinal hernia contains fluid
--- NOTE | 2018-10-04 11:36 | EKG ---
Test Date: 2018-10-04 Test Time: 10:22:31 Environmental Emergencies Assistant: NYA MEASUREMENT RESULTS: Intervals: Rate: 92 DC: QRSD: 114 QT: 386 QTc: 477 [place]: P: DC: QRS: 31 T: 75 INTERPRETIVE STATEMENTS: Atrial fibrillation Nonspecific ST and T wave abnormality Prolonged QT Abnormal ECG Compared to ECG 08/11/2018 19:07:14 ST (T wave) deviation now present Ventricular premature complex(es) no longer present Electronically Signed On 10-04-18 11:35:39 CAMOUFLAGE ASSEMBLER by Ehsan Vallejo
[2018-10-04] MEDS ORDERED: NA CHLORIDE 0.9% 1,000 ML ONE (11:46)
[2018-10-04 11:48] LABS: Protime INR 1.18
[2018-10-04 12:02] LABS: Absolute Lymphocytes (CBC) 2.2 K/uL (0.7-4.9); Absolute Monocytes 0.8 K/uL (0.1-1.3); Absolute Neutrophil 9.5 K/uL (1.8-8.0); Basophils % 0.3 % (0-1.3); Eosinophils % 0.9 % (0-4.4); Hematocrit 41.5 % (39.6-49.0); Lymphocytes % 17.8 % (15.3-44.8); MCH 32.1 pg (27.0-35.0); MCV 94.1 fL (80-100); MPV 9.6 fL (7.6-11.3); Monocytes % 6.2 % (3.3-12.3); RBC Red Blood Cell Count 4.41 M/uL (4.33-5.43)
[2018-10-04 12:21] LABS: Urine Blood NEGATIVE (NEG); Urine Glucose NEGATIVE (NEG); Urine Protein NEGATIVE (NEG); Urine pH 8.5 (5.0-7.0)
[2018-10-04] MEDS ORDERED: ACETAMINOPHEN 325 MG TABLET ONE (12:27)
[2018-10-04 12:44] LABS: Albumin 3.7 g/dL (3.4-5.0); Bilirubin Direct 0.2 mg/dL (0-0.2); Bilirubin Total 0.6 mg/dL (0.2-1.0); Potassium 3.4 mmol/L (3.5-5.1); Protein, Total 7.1 g/dL (6.4-8.2); Troponin (Emerg Dept Use Only) 0.02 ng/mL (0.0-0.045)
--- NOTE | 2018-10-04 13:04 | RAD REPORT ---
EXAM DESCRIPTION: Shelley Single View10/04/2018 10:32 am CLINICAL HISTORY: Chest pain COMPARISON: July 2018 FINDINGS: Small pleural effusions are present. Mild right basilar opacities are present. Additional bilateral pulmonary opacities appear chronic. T he heart is mildly enlarged. IMPRESSION: Mild right basilar opacities may represent pneumonia.
--- NOTE | 2018-10-04 13:18 | ER ---
Nurse's Notes [facility] Name: Marcial Groves Age: 87 yrs Sex: Male : 1930 Arrival Date: 10/04/2018 Time: 09:08 Bed 7 Private MD: Diagnosis: Pneumonia Presentation: 10/04 09:44 Presenting complaint: Child states: has been seen at PCP recently for developing iw pneumonia and ileus, toady pt had temp of 99.7 and had not urinated very much since yesterday despite drinking fluids. Transition of care: patient was not received from another setting of care. Onset of symptoms was October 04, 2018. Risk Assessment: Do you want to hurt yourself or someone else? Patient reports no desire to harm self or others. Initial Sepsis Screen: Does the patient meet any 2 criteria? No. Patient's initial sepsis screen is negative. Does the patient have a suspected source of infection? No. Patient's initial sepsis screen is negative. Care prior to arrival: None. 09:44 Method Of Arrival: Wheelchair iw 09:44 Acuity: JER 3 iw Historical: - Allergies: 09:49 NKDA; iw - PMHx: 09:49 Atrial Fib; bowel incontinence; colon cancer; CVA; Dementia; Kidney stones; iw Hypertension; Parkinsons; prostatic hyperplasia; psoriasis; Pancreatitis; pulmonary fibrosis; UTI; VASCULAR DEMENTIA; bowel obstruction; - PSHx: 09:49 colon resection; Hernia repair; Cholecystectomy; right rotator cuff; iw - Immunization history:: Adult Immunizations up to date. - Social history:: Smoking status: Patient/guardian denies using tobacco. - Ebola Screening: : Patient negative for fever greater than or equal to 101.5 degrees Fahrenheit, and additional compatible Ebola Virus Disease symptoms Patient denies exposure to infectious person Patient denies travel to an Ebola-affected area in the 21 days before illness onset No symptoms or risks identified at this time. Screenin:40 Abuse screen: Denies threats or abuse. Denies injuries from another. Nutritional ss screening: No deficits noted. Tuberculosis screening: Never had TB. Fall Risk No fall in past 12 months (0 pts). Secondary diagnosis (15 points) Alzheimer's, dementia, IV access (20 points). Ambulatory Aid- None/Bed Rest/Nurse Assist (0 pts). Gait- Normal/Bed Rest/Wheelchair (0 pts) Mental Status- Oriented to own ability (0 pts). Assessment: 09:49 General: Appears comfortable, Behavior is calm, cooperative, pt has intermittent ss episodes of tachypnea which son states, "that's just what he does sometimes. He does it all the time.". General: son reports fever that began today. Decreased appetite and decreased urinary output over the past few days". Pain: Denies pain. Neuro: Level of Consciousness is awake, alert, obeys commands, Oriented to person, place. Cardiovascular: Denies chest pain, lightheadedness, nausea, palpitations, shortness of breath, Heart tones S1 S2 present Capillary refill < 3 seconds is brisk in bilateral fingers Rhythm is atrial flutter. Respiratory: Airway is patent Respiratory effort is even, unlabored, Respiratory pattern is regular, symmetrical, Breath sounds are clear bilaterally. GI: Abdomen is round non-distended, umbilical hernia noted, is baseline for patient. No redness or swelling observed Bowel sounds present X 4 quads. Abd is soft and non tender X 4 quads. Parent/caregiver reports the patient having. : Parent/caregiver report the patient having decreased urinary output. EENT: Oral mucosa is dry. Derm: Skin is intact, is healthy with good turgor, Skin is dry, Skin is pink, warm \\T\\ dry. normal. Musculoskeletal: Range of motion: intact in all extremities. 12:29 Reassessment: JOHNIE Montesinos notified of elevated HR and has ordered an EKG and PO Tylenol. ss Tylenol administered as well as routine BP medications (given my caregiver). 14:00 Reassessment: Pt is resting at this time, eyes closed. Respirations remain even and ss unlabored. Side rails up x2, call light remains within reach. Caregiver, Lynne at bedside. 14:30 Reassessment: Report called to JEFF Gage. ss Vital Signs: 09:50 BP 152 / 88; Pulse 92; Resp 16 S; Temp 99.6(A); Pulse Ox 100% on 3 lpm NC; Pain 0/10; iw 12:28 BP 160 / 116; Pulse 122; Resp 22; Temp 100.1(A); Pulse Ox 98% on R/A; Pain 0/10; ss 13:33 BP 150 / 102; Pulse 108; Resp 17; Pulse Ox 100% on R/A; ss 14:24 BP 135 / 85; Pulse 109; Resp 17; Temp 97.5(A); Pulse Ox 100% on R/A; Pain 0/10; ss ED Course: 09:08 Patient arrived in ED. as 09:40 Patient has correct armband on for positive identification. Placed in gown. Bed in low ss position. Call light in reach. Side rails up X2. Adult w/ patient. patient monitor on. Pulse ox on. NIBP on. 09:40 Patient maintains SpO2 saturation greater than 95% on room air. ss 09:46 Triage completed. iw 09:50 Arm band placed on. iw 09:52 Meenakshi Taveras, JEFF is Primary Nurse. 10:03 Jaguar Gee PA is PHCP. [facility] 10:03 Tahir Villegas MD is Attending Physician. jmm 10:23 X-ray completed. Portable x-ray completed in exam room. Patient tolerated procedure mh1 well. 10:32 XRAY Chest (1 view) In Process Unspecified. EDMS 10:35 Missed attempt(s): 24 gauge in left antecubital area. Bleeding controlled, band aid ss applied, catheter tip intact. 10:42 CT completed. Patient tolerated procedure well. Patient moved back from CT. 10:42 CT Abd/Pelvis - Without Cont In Process Unspecified. EDMS 11:30 Urine collected: clean catch specimen, clear, willie colored. jp3 12:27 EKG done, by radiologic technologist. reviewed by Jaguar JETT Repeat EKG. at1 13:18 Richa Bartlett MD is Hospitalizing Provider. jm 14:30 No provider procedures requiring assistance completed. Patient admitted, IV remains in ss place. Administered Medications: 11:48 Drug: NS 0.9% 500 ml Route: IV; Rate: bolus; Site: right wrist; ss 14:44 Follow up: IV Status: Completed infusion; IV Intake: 500ml ss 12:25 Drug: Tylenol 650 mg Route: PO; ss 14:44 Follow up: Response: No adverse reaction; Temperature is decreased ss 13:33 Drug: LevaQUIN 500 mg Volume: 100 ml; Route: IVPB; Infused Over: 60 mins; Site: right ss wrist; 14:44 Follow up: IV Status: Completed infusion ss 14:43 Drug: K-Lyte Effervescent Tablet 50 mEq Route: PO; 14:45 Follow up: Response: No adverse reaction ss Intake: 14:44 IV: 500ml; Total: 500ml. Outcome: 13:18 Decision to Hospitalize by Provider. tammy 14:46 Admitted to Tele accompanied by tech, family with patient, via stretcher, with chart, ss Report called to JEFF Gage 14:46 Condition: good 14:46 Instructed on the need for admit. 14:48 Patient left the ED. ss Signatures: Dispatcher [employer] EDMS Jaguar Gee PA PA jmm Hagler, Ervin eh Harvey, Martha 1 Olive Quiñones Irene, JEFF AGUILAR Meenakshi Taveras RN RN Megha Mota, pulling machine operator EKG Tat1 Curt Pandey jp3
--- NOTE | 2018-10-04 13:18 | EDPHYS ---
Physician Documentation [facility] Name: Marcial Groves Age: 87 yrs Sex: Male : 1930 Arrival Date: 10/04/2018 Time: 09:08 Bed 7 Private MD: ED Physician Tahir Villegas HPI: 10/04 10:13 This 87 yrs old Male presents to ER via Wheelchair with complaints of Fever, jmm Constipation, Edema. 10:13 Onset: The symptoms/episode began/occurred today. This is an 87 year old male with jmm history of atrial fib, chronic bowel obstructions, colon cancer, HTN that presents to the ED with a fever beginning earlier today. Patient was recently evaluated by PCP with concerns of pneumonia. Family states the patient vomited once today. Patient denies chest pain. Family states the patient has had decreased urinary output over the past 1.5 days. . Historical: - Allergies: 09:49 NKDA; iw - PMHx: 09:49 Atrial Fib; bowel incontinence; colon cancer; CVA; Dementia; Kidney stones; iw Hypertension; Parkinsons; prostatic hyperplasia; psoriasis; Pancreatitis; pulmonary fibrosis; UTI; VASCULAR DEMENTIA; bowel obstruction; - PSHx: 09:49 colon resection; Hernia repair; Cholecystectomy; right rotator cuff; iw - Immunization history:: Adult Immunizations up to date. - Social history:: Smoking status: Patient/guardian denies using tobacco. - Ebola Screening: : Patient negative for fever greater than or equal to 101.5 degrees Fahrenheit, and additional compatible Ebola Virus Disease symptoms Patient denies exposure to infectious person Patient denies travel to an Ebola-affected area in the 21 days before illness onset No symptoms or risks identified at this time. ROS: 10:13 Constitutional: Positive for fever. jmm 10:13 Abdomen/GI: Positive for vomiting. 10:13 All other systems are negative. Exam: 10:13 Constitutional: The patient appears in no acute distress, alert, awake. jmm 11:32 Head/Face: atraumatic. Chest/axilla: Normal chest wall appearance and motion. jmm Cardiovascular: Regular rate and rhythm. No edema appreciated Respiratory: Normal respirations, no respiratory distress appreciated Abdomen/GI: Non distended, soft Skin: General appearance color normal MS/ Extremity: Moves all extremities, no obvious deformities appreciated, no edema noted to the lower extremities Psych: Behavior is normal, Mood is normal, Patient is cooperative and pleasant Vital Signs: 09:50 BP 152 / 88; Pulse 92; Resp 16 S; Temp 99.6(A); Pulse Ox 100% on 3 lpm NC; Pain 0/10; iw 12:28 BP 160 / 116; Pulse 122; Resp 22; Temp 100.1(A); Pulse Ox 98% on R/A; Pain 0/10; ss 13:33 BP 150 / 102; Pulse 108; Resp 17; Pulse Ox 100% on R/A; ss 14:24 BP 135 / 85; Pulse 109; Resp 17; Temp 97.5(A); Pulse Ox 100% on R/A; Pain 0/10; ss MDM: 10:13 Patient medically screened. [facility] 13:17 Data reviewed: vital signs, nurses notes. Counseling: I had a detailed discussion with terri the patient and/or guardian regarding: the historical points, exam findings, and any diagnostic results supporting the discharge/admit diagnosis. ED course: I discussed the patient with Dr. Bartlett whom accepted admission. 10/04 10:13 Order name: Basic Metabolic Panel; Complete Time: 12:52 [facility] 10/04 10:13 Order name: CBC with Diff; Complete Time: 12:38 [facility] 10/04 10:13 Order name: LFT's; Complete Time: 12:52 [facility] 10/04 10:13 Order name: Magnesium; Complete Time: 12:52 [facility] 10/04 10:13 Order name: NT PRO-BNP; Complete Time: 12:52 [facility] 10/04 10:13 Order name: PT-INR; Complete Time: 12:38 [facility] 10/04 10:13 Order name: Troponin (emerg Dept Use Only); Complete Time: 12:52 [facility] 10/04 10:13 Order name: XRAY Chest (1 view); Complete Time: 13:07 [facility] 10/04 10:13 Order name: Lipase; Complete Time: 12:52 [facility] 10/04 10:14 Order name: Blood Culture Adult (2) [facility] 10/04 10:14 Order name: Lactate; Complete Time: 12:38 [facility] 10/04 10:14 Order name: Procalcitonin; Complete Time: 13:04 [facility] 10/04 10:14 Order name: CT Abd/Pelvis - Without Cont; Complete Time: 11:24 [facility] 10/04 11:56 Order name: Urine Dipstick--Ancillary (enter results); Complete Time: 12:38 10/04 10:13 Order name: EKG; Complete Time: 10:14 [facility] 10/04 10:13 Order name: Cardiac monitoring; Complete Time: 11:51 [facility] 10/04 10:13 Order name: EKG - Nurse/Tech; Complete Time: 11:51 [facility] 10/04 10:13 Order name: IV Saline Lock; Complete Time: 11:51 [facility] 10/04 10:13 Order name: Labs collected and sent; Complete Time: 11:51 [facility] 10/04 10:13 Order name: O2 Per Protocol; Complete Time: 11:51 [facility] 10/04 10:13 Order name: O2 Sat Monitoring; Complete Time: 11:51 [facility] 10/04 11:52 Order name: Labs - recollect needed; Complete Time: 12:17 10/04 11:52 Order name: Labs - recollect needed; Complete Time: 12:16 bd Administered Medications: 11:48 Drug: NS 0.9% 500 ml Route: IV; Rate: bolus; Site: right wrist; ss 14:44 Follow up: IV Status: Completed infusion; IV Intake: 500ml ss 12:25 Drug: Tylenol 650 mg Route: PO; ss 14:44 Follow up: Response: No adverse reaction; Temperature is decreased ss 13:33 Drug: LevaQUIN 500 mg Volume: 100 ml; Route: IVPB; Infused Over: 60 mins; Site: right ss wrist; 14:44 Follow up: IV Status: Completed infusion ss 14:43 Drug: K-Lyte Effervescent Tablet 50 mEq Route: PO; ss 14:45 Follow up: Response: No adverse reaction ss Disposition: 10/05 13:50 Co-signature as Attending Physician, Tahir Villegas MD I agree with the assessment and kdr plan of care. Disposition: 10/04/18 13:18 Hospitalization ordered by Richa Bartlett for Observation. Preliminary diagnosis is Pneumonia. - Bed requested for Telemetry/MedSurg (observation). - Status is Observation. ss - Condition is Stable. - Problem is new. - Symptoms are unchanged. UTI on Admission? No Signatures: Dispatcher [employer] EDDeanna Masseyara Tahir Villegas MD MD [facility] Jaguar Gee PA PA [facility] Vijaya Flower, JEFF RN Meenakshi Taveras RN RN ss Corrections: (The following items were deleted from the chart) 10/04 11:43 10:13 This is an 87 year old male with history of atrial fib, chronic bowel jmm obstructions, colon cancer, HTN that presents to the ED with a fever beginning earlier today. Patient was recently evaluated by PCP with concerns of pneumonia. Family states the patient vomited once today. Patient denies chest pain. [facility] 14:03 13:18 Hospitalization Ordered by Richa Bartlett MD for Observation. Preliminary bd diagnosis is Pneumonia. Bed requested for Telemetry/MedSurg (observation). Status is Observation. Condition is Stable. Problem is new. Symptoms are unchanged. UTI on Admission? No. [facility] 14:48 14:03 10/04/2018 13:18 Hospitalization Ordered by Richa Bartlett MD for Observation. ss Preliminary diagnosis is Pneumonia. Bed requested for Telemetry/MedSurg (observation). Status is Observation. Condition is Stable. Problem is new. Symptoms are unchanged. UTI on Admission? No. bd
[2018-10-04] MEDS ORDERED: Levofloxacin500mg IV 500 MG/100 ML BAG IV ONE ×2 (13:37→18:00)
[2018-10-04] MEDS ORDERED: POTASSIUM 25 MEQ EFFERV TAB ONE (14:48)
[2018-10-04] MEDS ORDERED: ACETAMINOPHEN 500 MG TAB PO PRN (15:10)
[2018-10-04] MEDS ORDERED: ONDANSETRON 4 MG/2 ML VIAL IV PRN (15:10)
--- NOTE | 2018-10-04 15:30 | EKG ---
Test Date: 2018-10-04 Test Time: 12:20:06 Tick Inspector: NYA MEASUREMENT RESULTS: Intervals: Rate: 113 CO: QRSD: 110 QT: 346 QTc: 474 [place]: P: CO: QRS: 38 T: 68 INTERPRETIVE STATEMENTS: Atrial fibrillation with rapid ventricular response Intraventricular conduction delay Nonspecific ST and T wave abnormality Abnormal ECG Compared to ECG 10/04/2018 10:22:31 Heart rate has increased Electronically Signed On 10-04-18 15:30:00 ASSURANCE ENGINEER by Ehsan Vallejo
[2018-10-04] MEDS: ENOXAPARIN 40 MG/0.4 ML SQ SCH (16:00)
--- NOTE | 2018-10-04 16:18 | P.HP ---
Certification for Inpatient Patient admitted to: Observation With expected LOS: <2 Midnights Patient will require the following post-hospital care: None Practitioner: I am a practitioner with admitting privileges, knowledge of patient current condition, hospital course, and medical plan of care. Services: Services provided to patient in accordance with Admission requirements found in Title 42 Section 412.3 of the Code of Federal Regulations Patient History Date of Service: 10/04/18 History of Present Illness: This is a 87-year-old male with significant past medical history of atrial fibrillation, colon cancer, CVA, hypertension, Parkinson's, BPH, CAD, pulmonary fibrosis, COPD, congestive heart failure, who presented to the ED after he was seen in his PCPs office couple of days ago for pneumonia and fever. Patient has been recently discharged from the hospital about 1 month ago after having a heart catheterization done in [facility]. At that time patient was told that his heart is weak and has been having poor ejection fraction. Ever since then patient had C. difficile and was treated with p.o. vancomycin and was recently seen at his primary care doctor's office for that as well. Patient however for the past couple a days has started having some low -grade fever and has been having issues work of breathing and thus the family decided to bring him in to the hospital. Patient has had a low temperature of 100.1 at the house with white sputum and thus the family decided to bring him to the hospital. Patient of note also has been having poor appetite along with poor p.o. intake with terms of fluids. Patient was also noted to have some decreased urinary output and thus was brought over to the hospital. Patient's parachute manufacturing supervisor at bedside also states that patient has bowel ileus for which he had a modified barium swallow exam done last week in the clinic and was noted to have delayed emptying at that time. In the ER patient had a chest x-ray abdominal CT and lab work done which was consistent with sepsis and dehydration and thus patient was admitted to the hospital for further care Allergies No Known Drug Allergies Allergy (Verified 04/17/18 14:43) Unknown Home medications list reviewed: Yes Home Medications: Albuterol Sulfate [Albuterol Sulfate 0.083% Neb Soln] 1 vial IH Q6H PRN Amlodipine Besylate [Norvasc] 5 mg PO BEDTIME 08/11/18 Aspirin [Aspirin EC 325 MG] 325 mg PO DAILY 08/11/18 Buspirone HCl [Buspar*] 10 mg PO TID 08/11/18 Calcipotriene/Betamethasone [Calcipotriene-Betameth Dp Oint] 1 heather TOP BID 08/11 Carbidopa/Levodopa [Carbidopa-Levodopa 25-100 Tab] 1 tab PO TID 08/11/18 Fexofenadine HCl [Charito Allergy] 1 tab PO DAILY 08/11/18 Hydralazine HCl 25 mg PO Q8HR 08/11/18 Melatonin/Pyridoxine [Melatonin 5 mg Tablet] 5 mg PO BEDTIME 08/11/18 Memantine HCl [Memantine HCl ER] 1 cap PO [id number] 08/11/18 Metoclopramide HCl [Reglan] 5 mg PO BID PRN 08/11/18 Nitroglycerin [Nitrostat*] 0.4 mg SL PRN PRN 08/11/18 Olmesartan Medoxomil [Benicar] 20 mg PO BEDTIME 08/11/18 Ondansetron [Zofran (Odt)*] 4 mg SL DAILY PRN 08/11/18 PHENYTOIN ER Cap [Dilantin ER Cap*] 100 mg PO QID 08/11/18 Pantoprazole Sodium [Protonix] 20 mg PO [id number] 08/11/18 Polyethylene Glycol 3350 [Miralax] 17 gm PO SEECOM PRN 08/11/18 Pravastatin Sodium 10 mg PO BEDTIME 08/11/18 Quetiapine Fumarate [Seroquel] 25 mg PO QID 08/11/18 Solifenacin [Vesicare*] 10 mg PO [id number] 08/11/18 Tamsulosin [Flomax*] 0.4 mg PO [id number] 08/11/18 Trazodone HCl 50 mg PO BEDTIME 08/11/18 Triamcinolone Aceton/Silicones [Dermazone 0.1% Kit] 1 heather TOP BID PRN 08/11/18 Vitamin B Complex [Vitamin B Complex*] 1 cap PO DAILY 08/11/18 hydroCHLOROthiazide [Hydrochlorothiazide*] 12.5 mg PO DAILY 08/11/18 lamoTRIgine [Lamictal*] 100 mg PO BID 08/11/18 risperiDONE [Risperdal 0.25 MG TAB*] 0.125 mg PO BID 08/11/18 Carvedilol 6.25 mg PO BID 10/04/18 - Past Medical/Surgical History Diabetic: No -: History of CVA -: HTN -: History of Colon cancer with bowel obstructions. -: Neuropathy -: Vascular Dementia -: Gait instability -: High Fall risk -: Osteoarthritis -: AFIB -: Bowel Resection -: Cholecystectomy -: Tonsillectomy -: Hernia Repair -: R. Rotator Cuff Repair Psychosocial/ Personal History: Lives with son. Has care givers 13/06. Son has POA. - Family History Family History: Reviewed- Non-Contributory - Family History Mother -: Other (see notes) Notes: alzheimers - Social History Smoking Status: Never smoker Alcohol use: No CD- Drugs: No Caffeine use: No Place of Residence: Home Review of Systems 10-point ROS is otherwise unremarkable Physical Examination - Vital Signs Temperature: 97.5 F Blood Pressure: 135/85 Pulse: 109 Respirations: 17 - Physical Exam General: Alert, Acute distress HEENT: Atraumatic, PERRLA, Mucous membr. moist/pink, EOMI, Sclerae nonicteric Neck: Supple, 2+ carotid pulse no bruit, No LAD, JVD distended Respiratory: Normal air movement, Crackles/rales, Expiratory wheezes, Inspiratory wheezes Cardiovascular: Regular rate/rhythm, Normal S1 S2 Gastrointestinal: Normal bowel sounds, No tenderness Musculoskeletal: No tenderness Integumentary: No rashes Neurological: Normal gait, Normal speech, Normal strength at 5/5 x4 extr, Normal tone, Normal affect Lymphatics: No axilla or inguinal lymphadenopathy - Studies Laboratory Data (last 24 hrs) 10/04/18 12:13: Sodium 149 H, Potassium 3.4 L, BUN 13, Creatinine 1.10, Glucose 121 H, Magnesium 2.0, Total Bilirubin 0.6, AST 25, ALT 15, Alkaline Phosphatase 152 H, Lipase 102 10/04/18 11:20: PT 13.9 H, INR 1.18 10/04/18 11:20: WBC 12.6 H, Hgb 14.2, Hct 41.5, Plt Count 171 Assessment and Plan - Problems (Diagnosis) (1) Dehydration Current Visit: Yes Status: Acute Plan: Dehydration with Poor PO intake and Elevated LA -IV fluids for now -Dietary and Speech consulted to assess for Oral phase -Patient maybe developing FTT with Poor PO intake and Weight loss (2) Sepsis Onset Date: 04/18/18 Current Visit: No Status: Acute Plan: Sepsis most likely 2.2 to Viral Illness vs Past Cdiff Infection -Will continue with PO vanc that was started on 09/28 for total of 4 weeks for Cdiff colitis -Will also start on Levaquin for PNA. Even though Procal is negative, pt does have elevated WBC and LA. Will continue untill Sputum culture negative (3) Atrial fibrillation Current Visit: Yes Status: Chronic Plan: Patient with Chronic Afib -Currently on BB but no anticoagulation due to H/o of reccurent Fall. -Will continue home medication -Cardiology consulted. -Pt see Dr Howell in [place] as his Cardiology Qualifiers: Atrial fibrillation type: chronic Qualified Code(s): I48.2 - Chronic atrial fibrillation (4) CHF (congestive heart failure) Onset Date: 09/30/16 Current Visit: No Status: Chronic Plan: Acute on Chronic CHF with Recent Heart Cath 1 month ago in [place] -Currently on PO lasix. Will continue. Caution with lasix as patient does appear to be dehydrated. -Cardiology consulted. Qualifiers: Heart failure type: combined systolic and diastolic Heart failure chronicity: acute on chronic Qualified Code(s): I50.43 - Acute on chronic combined systolic (congestive) and diastolic (congestive) heart failure (5) COPD (chronic obstructive pulmonary disease) Onset Date: 12/02/16 Current Visit: No Status: Chronic Plan: COPD with Pulmonary Fibrosis -Duonebs, Steroids and Oxygen -Pt is Oxygen Dependent and uses 2L NC at home -Pulmonology Consulted. Qualifiers: COPD type: chronic bronchitis Chronic bronchitis type: mixed simple and mucopurulent Qualified Code(s): J41.8 - Mixed simple and mucopurulent chronic bronchitis (6) Chronic anemia Onset Date: 05/17/16 Current Visit: No Status: Chronic (7) HTN (hypertension) Onset Date: 05/17/16 Current Visit: No Status: Chronic Plan: Restart Home medication with adjustment to the BP medication as this may be causing his Hypotension. -Will monitor BP closely here in the hospital Qualifiers: Hypertension type: essential hypertension Qualified Code(s): I10 - Essential (primary) hypertension (8) History of CVA (cerebrovascular accident) Onset Date: 05/15/18 Current Visit: No Status: Chronic Plan: With Vascular Dementia. -Continue home medication (9) Parkinsons disease Onset Date: 05/15/18 Current Visit: No Status: Chronic (10) Vascular dementia Onset Date: 05/15/18 Current Visit: No Status: Chronic Qualifiers: Dementia behavioral disturbance: without behavioral disturbance Qualified Code(s): F01.50 - Vascular dementia without behavioral disturbance (11) BPH (benign prostatic hypertrophy) Onset Date: 05/17/16 Current Visit: No Status: Chronic Qualifiers: Lower urinary tract symptom presence: symptoms present Lower urinary tract symptom detail: urinary retention Qualified Code(s): N40.1 - Benign prostatic hyperplasia with lower urinary tract symptoms; R33.8 - Other retention of urine (12) History of fall Current Visit: No Status: Chronic Discharge Plan: Other Plan to discharge in: 48 Hours - Advance Directives Does patient have a Living Will: Yes Does patient have a Durable POA for Healthcare: Yes - Code Status/Comfort Care Code Status Assessed: Yes Critical Care: No
[2018-10-04] MEDS ORDERED: HOME MED 1 EA UNK (Polyethylene Glycol 3350 [Miralax] 17 GM) PO PRN (16:23)
[2018-10-04] MEDS ORDERED: [UNRECOGNIZED DRUG - OTHER] TOP PRN (16:23)
[2018-10-04] MEDS ORDERED: LEVALBUTEROL 0.63 MG/3 ML NEB NEB PRN (16:23)
[2018-10-04] MEDS ORDERED: METOCLOPRAMIDE 5 MG TAB PO PRN (16:23)
[2018-10-04] MEDS ORDERED: TRIAMCINOLONE TOP PRN (16:23)
[2018-10-04] MEDS ORDERED: NITROGLYCERIN 0.4 MG/TAB SL PRN (16:23)
[2018-10-04] MEDS ORDERED: IPRATROPIUM BROM 0.5MG/2.5ML NEB PRN (16:23)
[2018-10-04] MEDS: NA CHLORIDE 0.9% 1,000 ML IV SCH (18:36)
[2018-10-04] MEDS: VANCOMYCIN ORAL SOLN 250 MG/5 ML OSYR PO SCH ×2 (18:37→23:17)
[2018-10-04] MEDS: QUETIAPINE 25 MG TAB PO SCH ×2 (18:38→21:58)
[2018-10-04] MEDS: PHENYTOIN ER 100 MG CAP PO SCH ×2 (18:38→21:57)
--- NOTE | 2018-10-04 19:55 | RAD REPORT ---
EXAM DESCRIPTION: CT - Thorax Wo Con - 10/04/2018 7:42 pm CLINICAL HISTORY: sob and cough COMPARISON: 2016 TECHNIQUE: Computed axial tomography of the chest was obtained. Contrast was not requested. All CT scans are performed using dose optimization technique as appropriate and may include automated exposure control or mA/KV adjustment according to patient size. FINDINGS: The evaluation of mediastinum, leonela and vessels is limited secondary to lack of IV contras t administration. Mild patchy opacities are present within lingula and right lower lobe. Mild to moderate additional bi lateral interstitial lung opacities have the appearance of pulmonary fibrosis. No mediastinal or hilar lymphadenopathy is seen. Small bilateral pleural effusions IMPRESSION: Mild patchy opacities within the lingula and right lower lobe likely indicate pneumonia Mild to moderate pulmonary fibrosis
[2018-10-04] MEDS ORDERED: PYRIDOXINE PO SCH (21:00)
[2018-10-04] MEDS ORDERED: HOME MED 1 EA UNK (Pravastatin Sodium [Pravastatin Sodium] 10 MG) PO SCH (21:00)
[2018-10-04] MEDS: BETAMETHASONE TOP SCH (21:00)
[2018-10-04] MEDS ORDERED: MELATONIN PO SCH (21:00)
[2018-10-04] MEDS: CALCIPOTRIENE TOP SCH (21:00)
[2018-10-04] MEDS: CARBIDOPA/LEVODOPA 25/100 TAB PO SCH (21:58)
[2018-10-04] MEDS: lamoTRIgine 100 MG TAB PO SCH (21:58)
[2018-10-04] MEDS: TRAZODONE 50 MG TABLET PO SCH (21:58)
[2018-10-04] MEDS: RISPERIDONE 0.25 MG TABLET PO SCH (21:58)
[2018-10-04] MEDS: BUSPIRONE HCL 5 MG TABLET PO SCH (21:58)
[2018-10-04] MEDS: CARVEDILOL 6.25 MG TAB PO SCH (21:59)
[2018-10-04] MEDS: predniSONE 10 MG TAB PO SCH (21:59)
[2018-10-04] MEDS: ATORVASTATIN 10 MG TAB PO SCH (21:59)
[2018-10-04] MEDS: AMLODIPINE 5 MG TAB PO SCH (22:00)
[2018-10-05 01:04] LABS: Urine Appearance CLEAR; Urine Bilirubin NEGATIVE (NEG); Urine Blood NEGATIVE (NEG); Urine Color YELLOW; Urine Glucose NEGATIVE (NEG); Urine Microscopic Reflex ORDER UMIC; Urine Protein TRACE (NEG); Urine Specific Gravity 1.015 (1.005-1.030); Urine Urobilinogen 0.2 mg/dL (0.2-1.0); Urine pH 8.5 (5.0-7.0)
[2018-10-05 01:35] LABS: Urine Bacteria <20 /HPF (NONE SEEN); Urine Culture Reflex Order NOT NEEDED; Urine RBC <5 /HPF (NONE SEEN)
[2018-10-05] MEDS: NA CHLORIDE 0.9% 1,000 ML IV SCH ×3 (03:00→23:00)
[2018-10-05] MEDS: PANTOPRAZOLE 40MG TABLET PO SCH (05:11)
[2018-10-05] MEDS: TAMSULOSIN 0.4 MG SR CAP PO SCH (05:11)
[2018-10-05] MEDS: MEMANTINE HCL PO SCH (05:12)
[2018-10-05] MEDS ORDERED: HOME MED 1 EA UNK (Pantoprazole Sodium [Protonix] 20 MG) PO SCH (06:00)
[2018-10-05 06:22] LABS: Absolute Lymphocytes (CBC) 1.4 K/uL (0.7-4.9); Absolute Monocytes 0.6 K/uL (0.1-1.3); Absolute Neutrophil 8.1 K/uL (1.8-8.0); Basophils % 0.9 % (0-1.3); Eosinophils % 0.2 % (0-4.4); Hematocrit 33.7 % (39.6-49.0); Lymphocytes % 13.5 % (15.3-44.8); MCH 32.7 pg (27.0-35.0); MCV 94.1 fL (80-100); MPV 9.6 fL (7.6-11.3); Monocytes % 5.5 % (3.3-12.3); RBC Red Blood Cell Count 3.58 M/uL (4.33-5.43)
[2018-10-05 06:40] LABS: ALT/SGPT 8 U/L (12-78); AST/SGOT 18 U/L (15-37); Alkaline Phosphatase 126 U/L (45-117); BUN Blood Urea Nitrogen 9 mg/dL (7-18); Bicarbonate 29 mmol/L (21-32); Bilirubin Total 0.5 mg/dL (0.2-1.0); Glucose Level 150 mg/dL (74-106); Potassium 3.7 mmol/L (3.5-5.1); Protein, Total 6.1 g/dL (6.4-8.2); Sodium Level 149 mmol/L (136-145)
[2018-10-05] MEDS: SOLIFENACIN SUCCIN 5 MG TAB PO SCH (06:59)
[2018-10-05] MEDS: VANCOMYCIN ORAL SOLN 250 MG/5 ML OSYR PO SCH ×3 (07:00→17:27)
[2018-10-05] MEDS: hydroCHLOROthiazide 12.5 MG CAP PO SCH (07:58)
[2018-10-05] MEDS: CARVEDILOL 6.25 MG TAB PO SCH ×2 (07:59→20:19)
[2018-10-05] MEDS ORDERED: POTASSIUM CL SA 10 MEQ TAB PO ONE (08:00)
[2018-10-05] MEDS ORDERED: POLYETHYL GLY 3350 17 GM/DOSE PO SCH (09:00)
[2018-10-05] MEDS ORDERED: HOME MED 1 EA UNK (Aspirin [Aspirin Ec 325 Mg] 325 MG) PO SCH (09:00)
[2018-10-05] MEDS ORDERED: FUROSEMIDE 20 MG/ 2ML VIAL IV SCH (09:00)
[2018-10-05] MEDS: ENOXAPARIN 40 MG/0.4 ML SQ SCH (09:00)
[2018-10-05] MEDS: CALCIPOTRIENE TOP SCH ×2 (09:00→20:21)
[2018-10-05] MEDS ORDERED: POLYETHYL GLY 3350 17 GM/DOSE PO PRN (09:00)
[2018-10-05] MEDS: BETAMETHASONE TOP SCH ×2 (09:00→20:21)
[2018-10-05] MEDS: FEXOFENADINE 180 MG TAB PO SCH (10:12)
[2018-10-05] MEDS: RISPERIDONE 0.25 MG TABLET PO SCH ×2 (10:13→20:20)
[2018-10-05] MEDS: PHENYTOIN ER 100 MG CAP PO SCH ×4 (10:13→20:19)
[2018-10-05] MEDS: BUSPIRONE HCL 5 MG TABLET PO SCH ×3 (10:13→20:20)
[2018-10-05] MEDS: VITAMIN B COMPLEX 1 CAP PO SCH (10:13)
[2018-10-05] MEDS: QUETIAPINE 25 MG TAB PO SCH ×4 (10:14→20:20)
[2018-10-05] MEDS: lamoTRIgine 100 MG TAB PO SCH ×2 (10:14→20:19)
[2018-10-05] MEDS: CARBIDOPA/LEVODOPA 25/100 TAB PO SCH ×3 (10:14→20:19)
[2018-10-05] MEDS: predniSONE 10 MG TAB PO SCH ×2 (10:14→21:04)
[2018-10-05] MEDS: ASPIRIN EC 325 MG TABLET PO SCH (10:14)
--- NOTE | 2018-10-05 13:19 | P.PN ---
Subjective Date of Service: 10/05/18 Patient seen and examined at bedside with RN. Chart reviewed. Case discussed with patient and family member at bedside. Doing well overall. No complaints to offer overnight. Currently working with physical therapy. Review of Systems 10-point ROS is otherwise unremarkable Physical Examination - Vital Signs Temperature: 97.9 F Blood Pressure: 135/81 Pulse: 107 Respirations: 20 Pulse Ox (%): 97 - Physical Exam General: Alert, In no apparent distress HEENT: Atraumatic, PERRLA, EOMI Neck: Supple, JVD not distended Respiratory: Clear to auscultation bilaterally, Normal air movement Cardiovascular: Regular rate/rhythm, Normal S1 S2 Gastrointestinal: Normal bowel sounds, No tenderness Musculoskeletal: No tenderness Integumentary: No rashes Neurological: Normal speech, Normal tone, Normal affect Lymphatics: No axilla or inguinal lymphadenopathy - Studies Microbiology Data (last 24 hrs): 10/04/18 11:40 Blood - Blood Anaerobic Blood Culture - Final 10/04/18 11:20 Blood - Blood Anaerobic Blood Culture - Final Medications List Reviewed: Yes Assessment And Plan - Current Problems (Diagnosis) (1) Dehydration Current Visit: Yes Status: Acute Plan: Dehydration with Poor PO intake and Elevated LA -IV fluids for now -Dietary and Speech consulted to assess for Oral phase evaluation -speech therapy assessment done patient did follow this swallow study and recommended MBS however family denied getting MBS at this time -Patient maybe developing FTT with Poor PO intake and Weight loss (2) Sepsis Onset Date: 04/18/18 Current Visit: No Status: Resolved Plan: Sepsis most likely 2.2 to Viral Illness vs Past Cdiff Infection -Will continue with PO vanc that was started on 09/28 for total of 4 weeks for Cdiff colitis Qualifiers: Sepsis type: sepsis due to unspecified organism Qualified Code(s): A41.9 - Sepsis, unspecified organism (3) Atrial fibrillation Current Visit: Yes Status: Chronic Plan: Patient with Chronic Afib -Currently on BB but no anticoagulation due to H/o of reccurent Fall. -Will continue home medication -Cardiology consulted. Recommendations appreciated at this time -Pt see Dr Howell in [place] as his Cardiology Qualifiers: Atrial fibrillation type: chronic Qualified Code(s): I48.2 - Chronic atrial fibrillation (4) CHF (congestive heart failure) Onset Date: 09/30/16 Current Visit: No Status: Chronic Plan: Acute on Chronic CHF with Recent Heart Cath 1 month ago in [place]. -Currently on PO lasix. Will continue. -Caution with lasix as patient does appear to be dehydrated. -Cardiology consulted. Appreciated recommendations at this time Qualifiers: Heart failure type: combined systolic and diastolic Heart failure chronicity: acute on chronic Qualified Code(s): I50.43 - Acute on chronic combined systolic (congestive) and diastolic (congestive) heart failure (5) COPD (chronic obstructive pulmonary disease) Onset Date: 12/02/16 Current Visit: No Status: Chronic Plan: COPD with Pulmonary Fibrosis -Duonebs, Steroids and Oxygen -Pt is Oxygen Dependent and uses 2L NC at home -Pulmonology Consulted. 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 -Continue home medication (9) Parkinsons disease Onset Date: 05/15/18 Current Visit: No Status: Chronic (10) Vascular dementia Onset Date: 05/15/18 Current Visit: No Status: Chronic Qualifiers: Dementia behavioral disturbance: without behavioral disturbance Qualified Code(s): F01.50 - Vascular dementia without behavioral disturbance (11) BPH (benign prostatic hypertrophy) Onset Date: 05/17/16 Current Visit: No Status: Chronic Qualifiers: Lower urinary tract symptom presence: symptoms present Lower urinary tract symptom detail: urinary retention Qualified Code(s): N40.1 - Benign prostatic hyperplasia with lower urinary tract symptoms; R33.8 - Other retention of urine (12) History of fall Current Visit: No Status: Chronic - Plan Pending clinical improvement. Family to address nutritional status with the patient. Will falls in 24 hr regarding the decision. Continue monitor closely until then. Discharge Plan: Home Plan to discharge in: 48 Hours - Code Status/Comfort Care Code Status Assessed: Yes Critical Care: No
--- NOTE | 2018-10-05 13:45 | P.CNS ---
Date of Consult: 10/05/18 Reason for Consult: Possible pneumonia Chief Complaint: Cough and pain History of Present Illness: Patient is 87 years of age numerous medical problems including congestive heart failure recently been hospitalized twice also had a C. difficile infection according to the caregiver as been sick complaining of cough and congestion this found to have some interstitial lung disease with bilateral patchy infiltrates white count was elevated patient is hypernatremic patient has not been eating and drinking had a slight fever poor urinary output Allergies No Known Drug Allergies Allergy (Verified 04/17/18 14:43) Unknown Home Medications: Albuterol Sulfate [Albuterol Sulfate 0.083% Neb Soln] 1 vial IH Q6H PRN Amlodipine Besylate [Norvasc] 5 mg PO BEDTIME 08/11/18 Aspirin [Aspirin EC 325 MG] 325 mg PO DAILY 08/11/18 Buspirone HCl [Buspar*] 10 mg PO TID 08/11/18 Calcipotriene/Betamethasone [Calcipotriene-Betameth Dp Oint] 1 heather TOP BID 08/11 Carbidopa/Levodopa [Carbidopa-Levodopa 25-100 Tab] 1 tab PO TID 08/11/18 Fexofenadine HCl [Charito Allergy] 1 tab PO DAILY 08/11/18 Hydralazine HCl 25 mg PO Q8HR 08/11/18 Melatonin/Pyridoxine [Melatonin 5 mg Tablet] 5 mg PO BEDTIME 08/11/18 Memantine HCl [Memantine HCl ER] 1 cap PO [id number] 08/11/18 Metoclopramide HCl [Reglan] 5 mg PO BID PRN 08/11/18 Nitroglycerin [Nitrostat*] 0.4 mg SL PRN PRN 08/11/18 Olmesartan Medoxomil [Benicar] 20 mg PO BEDTIME 08/11/18 Ondansetron [Zofran (Odt)*] 4 mg SL DAILY PRN 08/11/18 PHENYTOIN ER Cap [Dilantin ER Cap*] 100 mg PO QID 08/11/18 Pantoprazole Sodium [Protonix] 20 mg PO [id number] 08/11/18 Polyethylene Glycol 3350 [Miralax] 17 gm PO SEECOM PRN 08/11/18 Pravastatin Sodium 10 mg PO BEDTIME 08/11/18 Quetiapine Fumarate [Seroquel] 25 mg PO QID 08/11/18 Solifenacin [Vesicare*] 10 mg PO [id number] 08/11/18 Tamsulosin [Flomax*] 0.4 mg PO [id number] 08/11/18 Trazodone HCl 50 mg PO BEDTIME 08/11/18 Triamcinolone Aceton/Silicones [Dermazone 0.1% Kit] 1 heather TOP BID PRN 08/11/18 Vitamin B Complex [Vitamin B Complex*] 1 cap PO DAILY 08/11/18 hydroCHLOROthiazide [Hydrochlorothiazide*] 12.5 mg PO DAILY 08/11/18 lamoTRIgine [Lamictal*] 100 mg PO BID 08/11/18 risperiDONE [Risperdal 0.25 MG TAB*] 0.125 mg PO BID 08/11/18 Carvedilol 6.25 mg PO BID 10/04/18 - Past Medical/Surgical History Diabetic: No -: History of CVA -: HTN -: History of Colon cancer with bowel obstructions. -: Neuropathy -: Vascular Dementia -: Gait instability -: High Fall risk -: Osteoarthritis -: AFIB -: Parkinson's disease -: Bowel Resection -: Cholecystectomy -: Tonsillectomy -: Hernia Repair -: R. Rotator Cuff Repair Psychosocial/ Personal History: Lives with son. Has care givers 13/06. Son has POA. - Family History Mother Medical History: Other (see notes) Notes: alzheimers - Social History Smoking Status: Unknown if ever smoked Alcohol use: No CD- Drugs: No Caffeine use: No Place of Residence: Home Review of Systems is unable to be obtained Physical Examination Temp Pulse Resp BP Pulse Ox 97.9 F 107 H 20 135/81 97 10/05/18 13:19 10/05/18 13:19 10/05/18 13:19 10/05/18 13:19 10/05/18 13:19 General: Alert, Cooperative Neck: Supple Respiratory: Clear to auscultation bilaterally Cardiovascular: No edema Gastrointestinal: Normal bowel sounds, Soft and benign, No ascites Musculoskeletal: No clubbing, No swelling - Problems (1) Abnormal chest x-ray Current Visit: Yes Status: Acute Plan: Patient is 87 years of age admitted with cough congestion slight fever not eating and drinking poor urinary output recent multiple hospitalization was also diagnosed with C. diff his probably volume depleted need some IV fluids improved hydration is probably mosqueda on diuretics patient is hypernatremic white count is improving patchy infiltrates on the x-ray doubt active infection pro calcitonin level is negative white count is also normal is vital signs are stable Dc all antibiotics for now continue with IV fluids I do not he is actively having diarrhea
[2018-10-05] MEDS: Levofloxacin 250mg IV 250 MG/50 ML BAG IV SCH (14:03)
[2018-10-05] MEDS: TRAZODONE 50 MG TABLET PO SCH (20:20)
[2018-10-05] MEDS: AMLODIPINE 5 MG TAB PO SCH (20:20)
[2018-10-05] MEDS: ATORVASTATIN 10 MG TAB PO SCH (20:20)
[2018-10-05] MEDS: MELATONIN 5 MG TABLET PO SCH (21:04)
[2018-10-06] MEDS: VANCOMYCIN ORAL SOLN 250 MG/5 ML OSYR PO SCH ×5 (00:16→23:01)
[2018-10-06] MEDS: SOLIFENACIN SUCCIN 5 MG TAB PO SCH (05:36)
[2018-10-06] MEDS: PANTOPRAZOLE 40MG TABLET PO SCH (05:36)
[2018-10-06] MEDS: TAMSULOSIN 0.4 MG SR CAP PO SCH (05:36)
[2018-10-06] MEDS: MEMANTINE HCL PO SCH (05:36)
[2018-10-06 07:37] LABS: ALT/SGPT 9 U/L (12-78); AST/SGOT 16 U/L (15-37); Alkaline Phosphatase 125 U/L (45-117); BUN Blood Urea Nitrogen 9 mg/dL (7-18); Bicarbonate 28 mmol/L (21-32); Bilirubin Total 0.4 mg/dL (0.2-1.0); Glucose Level 144 mg/dL (74-106); Potassium 3.9 mmol/L (3.5-5.1); Protein, Total 6.2 g/dL (6.4-8.2); Sodium Level 149 mmol/L (136-145)
[2018-10-06 07:53] LABS: Absolute Lymphocytes (CBC) 1.4 K/uL (0.7-4.9); Absolute Monocytes 0.5 K/uL (0.1-1.3); Absolute Neutrophil 7.1 K/uL (1.8-8.0); Basophils % 0.3 % (0-1.3); Eosinophils % 1.2 % (0-4.4); Hematocrit 41.9 % (39.6-49.0); Lymphocytes % 15.6 % (15.3-44.8); MCV 94.9 fL (80-100); MPV 10.1 fL (7.6-11.3); Monocytes % 5.3 % (3.3-12.3); RBC Red Blood Cell Count 4.42 M/uL (4.33-5.43)
[2018-10-06] MEDS: CALCIPOTRIENE TOP SCH ×2 (09:00→21:00)
[2018-10-06] MEDS ORDERED: POTASSIUM CL SA 10 MEQ TAB PO ONE (09:00)
[2018-10-06] MEDS: ENOXAPARIN 40 MG/0.4 ML SQ SCH ×2 (09:00→10:17)
[2018-10-06] MEDS: NA CHLORIDE 0.9% 1,000 ML IV SCH (09:00)
[2018-10-06] MEDS: BETAMETHASONE TOP SCH ×2 (09:00→21:00)
[2018-10-06] MEDS: BUSPIRONE HCL 5 MG TABLET PO SCH ×3 (10:13→21:01)
[2018-10-06] MEDS: lamoTRIgine 100 MG TAB PO SCH ×2 (10:14→21:01)
[2018-10-06] MEDS: RISPERIDONE 0.25 MG TABLET PO SCH ×2 (10:14→21:03)
[2018-10-06] MEDS: FEXOFENADINE 180 MG TAB PO SCH (10:14)
[2018-10-06] MEDS: CARVEDILOL 6.25 MG TAB PO SCH ×2 (10:15→21:05)
[2018-10-06] MEDS: ASPIRIN EC 325 MG TABLET PO SCH (10:15)
[2018-10-06] MEDS: CARBIDOPA/LEVODOPA 25/100 TAB PO SCH ×3 (10:15→21:04)
[2018-10-06] MEDS: PHENYTOIN ER 100 MG CAP PO SCH ×4 (10:16→21:03)
[2018-10-06] MEDS: predniSONE 10 MG TAB PO SCH ×2 (10:16→21:06)
[2018-10-06] MEDS: VITAMIN B COMPLEX 1 CAP PO SCH (10:16)
[2018-10-06] MEDS: QUETIAPINE 25 MG TAB PO SCH ×4 (10:16→21:05)
[2018-10-06] MEDS: hydroCHLOROthiazide 12.5 MG CAP PO SCH (10:17)
[2018-10-06] MEDS: D5W 1,000 ML IV SCH ×2 (11:36→23:01)
--- NOTE | 2018-10-06 14:58 | P.PN ---
Subjective Date of Service: 10/06/18 Chief Complaint: Cough and pain Patient seen and examined at bedside with RN. Chart reviewed. Case discussed with patient and family member at bedside. Patient has had speech therapy consulted and was unable to passed the bedside swallow. MBS was recommended. family however refused for further testing. Currently patient is not able to take any oral intake. Aspirating on all foods and liquid at this time. Extensive discussion done with the son who is the medical POA a regarding future plans for PEG tube versus hospice care. The son demonstrated understanding however refused to have any treatment options at this time. States that he would like for his dad to get IV fluids and be discharged and he will be following up with his doctors that takes care of him chronically. He does not wish to have a PEG tube placed for his dad and does not need to make him hospice at this time as well. Son was educated again extensively on addressing the nutritional needs. However son stated that he will be taking him to his primary care doctor after discharge for further care. Review of Systems 10-point ROS is otherwise unremarkable Physical Examination - Vital Signs Temperature: 97.1 F Blood Pressure: 160/89 Pulse: 97 Respirations: 20 Pulse Ox (%): 97 - Physical Exam General: Alert, Mild distress HEENT: Atraumatic, PERRLA, EOMI Neck: Supple, JVD not distended Respiratory: Normal air movement, Crackles/rales, Expiratory wheezes, Inspiratory wheezes Cardiovascular: Regular rate/rhythm, Normal S1 S2 Gastrointestinal: Normal bowel sounds, No tenderness Musculoskeletal: No tenderness Integumentary: No rashes Neurological: Normal speech, Normal tone, Normal affect Lymphatics: No axilla or inguinal lymphadenopathy - Studies Laboratory Data (last 24 hrs) 10/06/18 07:07: Sodium 149 H, Potassium 3.9, BUN 9, Creatinine 0.80, Glucose 144 H, Total Bilirubin 0.4, AST 16, ALT 9 L, Alkaline Phosphatase 125 H 10/06/18 07:07: WBC 9.2, Hgb 14.1, Hct 41.9 D, Plt Count 132 L Microbiology Data (last 24 hrs): 10/05/18 16:00 Stool Clostridium difficile Toxin Assay - Final 10/04/18 11:40 Blood - Blood Anaerobic Blood Culture - Final 10/04/18 11:20 Blood - Blood Anaerobic Blood Culture - Final Medications List Reviewed: Yes Assessment And Plan - Current Problems (Diagnosis) (1) Dysphagia Current Visit: No Status: Chronic Plan: Speech Therapy consulted. Dysphagia 2.2 to multiple comorbities -Dietary and Speech consulted to assess for Oral phase evaluation -speech therapy assessment done patient failed his swallow study and recommended MBS however family denied getting MBS at this time and states that they do not wish to make a decision about PEG tube or Hospice care at this time. -Pt's nutritional Needs to cannot be met at this time due to family's refusal despite several communicative efforts. Risk and benefits of PEG tube vs Hospice care explained. Risk of Poor Nutritional Status Explained. Son who is the MPOA still refused to make a decision and states"the problems are chronic and he will work with Therapy and patient other physician to make a decision". pt is also in agreement with decision by Son. Qualifiers: Dysphagia type: unspecified Qualified Code(s): R13.10 - Dysphagia, unspecified (2) Aspiration into lower respiratory tract Onset Date: 05/31/16 Current Visit: No Status: Acute Qualifiers: Encounter type: initial encounter Qualified Code(s): T17.800A - Unspecified foreign body in other parts of respiratory tract causing asphyxiation, initial encounter (3) Dehydration Onset Date: 10/05/18 Current Visit: Yes Status: Acute Plan: Dehydration with Poor PO intake and dysphagia -IV fluids for now. switched to D5W -Patient developing FTT with Poor PO intake and Weight loss -Dietary and Speech consulted to assess for Oral phase evaluation -speech therapy assessment done patient failed his swallow study and recommended MBS however family denied getting MBS at this time and states that they do not wish to make a decision about PEG tube or Hospice care at this time. -Pt's nutritional Needs to cannot be met at this time due to family's refusal despite several communicative efforts. Risk and benefits of PEG tube vs Hospice care explained. Risk of Poor Nutritional Status Explained. Son who is the MPOA still refused to make a decision and states"the problems are chronic and he will work with Therapy and patient other physician to make a decision". pt is also in agreement with decision by Son. (4) Sepsis Onset Date: 04/18/18 Current Visit: No Status: Resolved Plan: Sepsis most likely 2.2 to Viral Illness vs Past Cdiff Infection -Will continue with PO vanc that was started on 09/28 for total of 4 weeks for Cdiff colitis Qualifiers: Sepsis type: sepsis due to unspecified organism Qualified Code(s): A41.9 - Sepsis, unspecified organism (5) Atrial fibrillation Onset Date: 10/05/18 Current Visit: Yes Status: Chronic Plan: Patient with Chronic Afib -Currently on BB but no anticoagulation due to H/o of reccurent Fall. -Will continue home medication -Cardiology consulted. Recommendations appreciated at this time -Pt see Dr Howell in [place] as his Cardiology Qualifiers: Atrial fibrillation type: chronic Qualified Code(s): I48.2 - Chronic atrial fibrillation (6) CHF (congestive heart failure) Onset Date: 09/30/16 Current Visit: No Status: Chronic Plan: Acute on Chronic CHF with Recent Heart Cath 1 month ago in [place]. -Currently on PO lasix. Will continue. -Cardiology consulted. Appreciated recommendations at this time Qualifiers: Heart failure type: combined systolic and diastolic Heart failure chronicity: acute on chronic Qualified Code(s): I50.43 - Acute on chronic combined systolic (congestive) and diastolic (congestive) heart failure (7) COPD (chronic obstructive pulmonary disease) Onset Date: 12/02/16 Current Visit: No Status: Chronic Plan: COPD with Pulmonary Fibrosis -Duonebs, Steroids and Oxygen -Pt is Oxygen Dependent and uses 2L NC at home -Pulmonology Consulted. 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 -Will monitor BP closely here in the hospital Qualifiers: Hypertension type: essential hypertension Qualified Code(s): I10 - Essential (primary) hypertension (10) History of CVA (cerebrovascular accident) Onset Date: 05/15/18 Current Visit: No Status: Chronic Plan: With Vascular Dementia. -Continue home medication (11) Parkinsons disease Onset Date: 05/15/18 Current Visit: No Status: Chronic (12) Vascular dementia Onset Date: 05/15/18 Current Visit: No Status: Chronic Qualifiers: Dementia behavioral disturbance: without behavioral disturbance Qualified Code(s): F01.50 - Vascular dementia without behavioral disturbance (13) BPH (benign prostatic hypertrophy) Onset Date: 05/17/16 Current Visit: No Status: Chronic Qualifiers: Lower urinary tract symptom presence: symptoms present Lower urinary tract symptom detail: urinary retention Qualified Code(s): N40.1 - Benign prostatic hyperplasia with lower urinary tract symptoms; R33.8 - Other retention of urine (14) History of fall Current Visit: No Status: Chronic
[2018-10-06] MEDS: Levofloxacin 250mg IV 250 MG/50 ML BAG IV SCH (15:37)
[2018-10-06] MEDS: AMLODIPINE 5 MG TAB PO SCH (21:02)
[2018-10-06] MEDS: MELATONIN 5 MG TABLET PO SCH (21:02)
[2018-10-06] MEDS: TRAZODONE 50 MG TABLET PO SCH (21:02)
[2018-10-06] MEDS: ATORVASTATIN 10 MG TAB PO SCH (21:06)
[2018-10-07] MEDS: PANTOPRAZOLE 40MG TABLET PO SCH (05:01)
[2018-10-07] MEDS: SOLIFENACIN SUCCIN 5 MG TAB PO SCH (05:01)
[2018-10-07] MEDS: MEMANTINE HCL PO SCH (05:02)
[2018-10-07] MEDS: TAMSULOSIN 0.4 MG SR CAP PO SCH (05:02)
[2018-10-07] MEDS: VANCOMYCIN ORAL SOLN 250 MG/5 ML OSYR PO SCH ×3 (05:02→17:40)
[2018-10-07 06:11] LABS: Absolute Lymphocytes (CBC) 1.1 K/uL (0.7-4.9); Absolute Monocytes 0.3 K/uL (0.1-1.3); Absolute Neutrophil 5.3 K/uL (1.8-8.0); Basophils % 0.4 % (0-1.3); Eosinophils % 2.1 % (0-4.4); Hematocrit 34.8 % (39.6-49.0); Lymphocytes % 15.6 % (15.3-44.8); MCH 32.4 pg (27.0-35.0); MCV 94.9 fL (80-100); MPV 9.5 fL (7.6-11.3); Monocytes % 4.3 % (3.3-12.3); RBC Red Blood Cell Count 3.67 M/uL (4.33-5.43)
[2018-10-07 06:30] LABS: Albumin 2.8 g/dL (3.4-5.0); Bilirubin Total 0.4 mg/dL (0.2-1.0); Potassium 3.9 mmol/L (3.5-5.1); Protein, Total 5.9 g/dL (6.4-8.2)
[2018-10-07] MEDS: CALCIPOTRIENE TOP SCH ×2 (09:00→21:00)
[2018-10-07] MEDS: ENOXAPARIN 40 MG/0.4 ML SQ SCH ×2 (09:00→10:34)
[2018-10-07] MEDS: BETAMETHASONE TOP SCH ×2 (09:00→21:00)
[2018-10-07] MEDS: hydroCHLOROthiazide 12.5 MG CAP PO SCH ×2 (09:00→10:32)
[2018-10-07] MEDS: FEXOFENADINE 180 MG TAB PO SCH (10:31)
[2018-10-07] MEDS: CARVEDILOL 6.25 MG TAB PO SCH ×2 (10:32→21:13)
[2018-10-07] MEDS: QUETIAPINE 25 MG TAB PO SCH ×4 (10:32→21:13)
[2018-10-07] MEDS: RISPERIDONE 0.25 MG TABLET PO SCH ×2 (10:32→21:14)
[2018-10-07] MEDS: PHENYTOIN ER 100 MG CAP PO SCH ×4 (10:32→21:14)
[2018-10-07] MEDS: CARBIDOPA/LEVODOPA 25/100 TAB PO SCH ×3 (10:32→21:12)
[2018-10-07] MEDS: ASPIRIN EC 325 MG TABLET PO SCH (10:33)
[2018-10-07] MEDS: BUSPIRONE HCL 5 MG TABLET PO SCH ×3 (10:33→21:10)
[2018-10-07] MEDS: VITAMIN B COMPLEX 1 CAP PO SCH (10:33)
[2018-10-07] MEDS: predniSONE 10 MG TAB PO SCH ×2 (10:33→21:12)
[2018-10-07] MEDS: lamoTRIgine 100 MG TAB PO SCH ×2 (10:33→21:11)
--- NOTE | 2018-10-07 11:07 | P.PN ---
Subjective Date of Service: 10/07/18 Chief Complaint: Cough and pain Patient seen and examined at bedside with RN. Chart reviewed. Case discussed with patient and family member at bedside. Patient has had speech therapy consulted and was unable to passed the bedside swallow. MBS was recommended. family however refused for further testing. Currently patient is not able to take any oral intake. Aspirating on all foods and liquid at this time. Extensive discussion done with the son who is the medical POA a regarding future plans for PEG tube versus hospice care. The son demonstrated understanding however refused to have any treatment options at this time. States that he would like for his dad to get IV fluids and be discharged and he will be following up with his doctors that takes care of him chronically. He does not wish to have a PEG tube placed for his dad and does not need to make him hospice at this time as well. Son was educated again extensively on addressing the nutritional needs. However son stated that he will be taking him to his primary care doctor after discharge for further care. Review of Systems 10-point ROS is otherwise unremarkable Physical Examination - Vital Signs Temperature: 97.6 F Blood Pressure: 149/84 Pulse: 81 Respirations: 16 Pulse Ox (%): 97 - Physical Exam General: Alert, In no apparent distress HEENT: Atraumatic, PERRLA, EOMI Neck: Supple, JVD not distended Respiratory: Clear to auscultation bilaterally, Normal air movement Cardiovascular: Regular rate/rhythm, Normal S1 S2 Gastrointestinal: Normal bowel sounds, No tenderness Musculoskeletal: No tenderness Integumentary: No rashes Neurological: Normal speech, Normal tone, Normal affect Lymphatics: No axilla or inguinal lymphadenopathy - Studies Microbiology Data (last 24 hrs): 10/05/18 16:00 Stool Clostridium difficile Toxin Assay - Final Medications List Reviewed: Yes Assessment And Plan - Current Problems (Diagnosis) (1) Dysphagia Current Visit: No Status: Chronic Plan: Speech Therapy consulted. Dysphagia 2.2 to multiple comorbities -Dietary and Speech consulted to assess for Oral phase evaluation -speech therapy assessment done patient failed his swallow study and recommended MBS however family denied getting MBS at this time and states that they do not wish to make a decision about PEG tube or Hospice care at this time. -Pt's nutritional Needs to cannot be met at this time due to family's refusal despite several communicative efforts. Risk and benefits of PEG tube vs Hospice care explained. Risk of Poor Nutritional Status Explained. Son who is the MPOA still refused to make a decision and states"the problems are chronic and he will work with Therapy and patient other physician to make a decision". pt is also in agreement with decision by Son. Qualifiers: Dysphagia type: unspecified Qualified Code(s): R13.10 - Dysphagia, unspecified (2) Aspiration into lower respiratory tract Onset Date: 05/31/16 Current Visit: No Status: Acute Plan: See # 1 Qualifiers: Encounter type: initial encounter Qualified Code(s): T17.800A - Unspecified foreign body in other parts of respiratory tract causing asphyxiation, initial encounter (3) Dehydration Onset Date: 10/05/18 Current Visit: Yes Status: Acute Plan: Dehydration with Poor PO intake and dysphagia -IV fluids for now. switched to D5W -Patient developing FTT with Poor PO intake and Weight loss -Dietary and Speech consulted to assess for Oral phase evaluation -speech therapy assessment done patient failed his swallow study and recommended MBS however family denied getting MBS at this time and states that they do not wish to make a decision about PEG tube or Hospice care at this time. -Pt's nutritional Needs to cannot be met at this time due to family's refusal despite several communicative efforts. Risk and benefits of PEG tube vs Hospice care explained. Risk of Poor Nutritional Status Explained. Son who is the MPOA still refused to make a decision and states"the problems are chronic and he will work with Therapy and patient other physician to make a decision". pt is also in agreement with decision by Son. (4) Sepsis Onset Date: 04/18/18 Current Visit: No Status: Resolved Plan: Sepsis most likely 2.2 to Viral Illness vs Past Cdiff Infection -Will continue with PO vanc that was started on 09/28 for total of 4 weeks for Cdiff colitis Qualifiers: Sepsis type: sepsis due to unspecified organism Qualified Code(s): A41.9 - Sepsis, unspecified organism (5) Atrial fibrillation Onset Date: 10/05/18 Current Visit: Yes Status: Chronic Plan: Patient with Chronic Afib -Currently on BB but no anticoagulation due to H/o of reccurent Fall. -Will continue home medication -Cardiology consulted. Recommendations appreciated at this time -Pt see Dr Howell in [place] as his Cardiology Qualifiers: Atrial fibrillation type: chronic Qualified Code(s): I48.2 - Chronic atrial fibrillation (6) CHF (congestive heart failure) Onset Date: 09/30/16 Current Visit: No Status: Chronic Plan: Acute on Chronic CHF with Recent Heart Cath 1 month ago in [place]. -Currently on PO lasix. Will continue. -Cardiology consulted. Appreciated recommendations at this time Qualifiers: Heart failure type: combined systolic and diastolic Heart failure chronicity: acute on chronic Qualified Code(s): I50.43 - Acute on chronic combined systolic (congestive) and diastolic (congestive) heart failure (7) COPD (chronic obstructive pulmonary disease) Onset Date: 12/02/16 Current Visit: No Status: Chronic Plan: COPD with Pulmonary Fibrosis -Duonebs, Steroids and Oxygen -Pt is Oxygen Dependent and uses 2L NC at home -Pulmonology Consulted. 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 -Will monitor BP closely here in the hospital Qualifiers: Hypertension type: essential hypertension Qualified Code(s): I10 - Essential (primary) hypertension (10) History of CVA (cerebrovascular accident) Onset Date: 05/15/18 Current Visit: No Status: Chronic Plan: With Vascular Dementia. -Continue home medication (11) Parkinsons disease Onset Date: 05/15/18 Current Visit: No Status: Chronic (12) Vascular dementia Onset Date: 05/15/18 Current Visit: No Status: Chronic Qualifiers: Dementia behavioral disturbance: without behavioral disturbance Qualified Code(s): F01.50 - Vascular dementia without behavioral disturbance (13) BPH (benign prostatic hypertrophy) Onset Date: 05/17/16 Current Visit: No Status: Chronic Qualifiers: Lower urinary tract symptom presence: symptoms present Lower urinary tract symptom detail: urinary retention Qualified Code(s): N40.1 - Benign prostatic hyperplasia with lower urinary tract symptoms; R33.8 - Other retention of urine (14) History of fall Current Visit: No Status: Chronic - Plan Pending clinical improvement. Family to address nutritional status with the patient agin today. Will f/u in 24 hr regarding the decision. Continue monitor closely until then. Discharge Plan: Home Plan to discharge in: 48 Hours - Code Status/Comfort Care Code Status Assessed: Yes Critical Care: No
[2018-10-07] MEDS: Levofloxacin 250mg IV 250 MG/50 ML BAG IV SCH (15:40)
[2018-10-07] MEDS: NYSTATIN 500,000 UNIT/5 ML UDC PO SCH ×2 (15:40→21:15)
[2018-10-07] MEDS: D5W 1,000 ML IV SCH (15:40)
[2018-10-07] MEDS: MELATONIN 5 MG TABLET PO SCH (21:10)
[2018-10-07] MEDS: TRAZODONE 50 MG TABLET PO SCH (21:11)
[2018-10-07] MEDS: AMLODIPINE 5 MG TAB PO SCH (21:12)
[2018-10-07] MEDS: ATORVASTATIN 10 MG TAB PO SCH (21:14)
[2018-10-08] MEDS: VANCOMYCIN ORAL SOLN 250 MG/5 ML OSYR PO SCH ×3 (00:20→12:00)
[2018-10-08] MEDS: D5W 1,000 ML IV SCH (05:20)
[2018-10-08] MEDS: PANTOPRAZOLE 40MG TABLET PO SCH (05:21)
[2018-10-08] MEDS: TAMSULOSIN 0.4 MG SR CAP PO SCH (05:21)
[2018-10-08] MEDS: SOLIFENACIN SUCCIN 5 MG TAB PO SCH (05:21)
[2018-10-08] MEDS: MEMANTINE HCL PO SCH (05:23)
[2018-10-08] MEDS: CALCIPOTRIENE TOP SCH (09:00)
[2018-10-08] MEDS: ENOXAPARIN 40 MG/0.4 ML SQ SCH (09:00)
[2018-10-08] MEDS: BETAMETHASONE TOP SCH (09:00)
[2018-10-08] MEDS: FEXOFENADINE 180 MG TAB PO SCH (09:56)
[2018-10-08] MEDS: BUSPIRONE HCL 5 MG TABLET PO SCH ×2 (09:57→13:55)
[2018-10-08] MEDS: VITAMIN B COMPLEX 1 CAP PO SCH (09:57)
[2018-10-08] MEDS: NYSTATIN 500,000 UNIT/5 ML UDC PO SCH ×2 (09:58→13:55)
[2018-10-08] MEDS: predniSONE 10 MG TAB PO SCH (09:58)
[2018-10-08] MEDS: ASPIRIN EC 325 MG TABLET PO SCH (09:59)
[2018-10-08] MEDS: hydroCHLOROthiazide 12.5 MG CAP PO SCH (09:59)
[2018-10-08] MEDS: QUETIAPINE 25 MG TAB PO SCH ×2 (09:59→13:00)
[2018-10-08] MEDS: lamoTRIgine 100 MG TAB PO SCH (10:00)
[2018-10-08] MEDS: PHENYTOIN ER 100 MG CAP PO SCH ×2 (10:00→13:00)
[2018-10-08] MEDS: CARVEDILOL 6.25 MG TAB PO SCH (10:00)
[2018-10-08] MEDS: RISPERIDONE 0.25 MG TABLET PO SCH (10:02)
[2018-10-08] MEDS: CARBIDOPA/LEVODOPA 25/100 TAB PO SCH ×2 (10:10→13:56)
[2018-10-08 12:51] VITALS: BP 156/87; TEMP 97
[2018-10-08] MEDS: Levofloxacin 250mg IV 250 MG/50 ML BAG IV SCH (14:16)
[2018-10-08 15:01] LABS: ALT/SGPT 18 U/L (12-78); AST/SGOT 22 U/L (15-37); Albumin 2.6 g/dL (3.4-5.0); Alkaline Phosphatase 116 U/L (45-117); BUN Blood Urea Nitrogen 10 mg/dL (7-18); Bicarbonate 25 mmol/L (21-32); Bilirubin Total 0.3 mg/dL (0.2-1.0); Glucose Level 161 mg/dL (74-106); Potassium 4.4 mmol/L (3.5-5.1); Protein, Total 5.3 g/dL (6.4-8.2); Sodium Level 136 mmol/L (136-145)
--- NOTE | 2018-10-08 16:12 | RAD REPORT ---
EXAM DESCRIPTION: RAD - Chest Single View - 10/08/2018 4:05 pm CLINICAL HISTORY: to check for aspiration Chest pain. COMPARISON: Chest Single View dated 10/04/2018; Chest Single View dated 08/16/2018; Chest Single View dated 08/15/2018; Chest Single View dated 08/13/2018 FINDINGS: Portable technique limits examination quality. Bibasilar lung opacities are present, greater on the left, suspicious for developing pneumonia or asp iration. Small pleural effusions suspected. The heart is mildly enlarged in size with a tortuous thor acic aorta. No displaced fractures.Degenerative changes are present in both shoulders.
--- NOTE | 2018-10-08 16:17 | P.DS ---
Admission Date: 10/06/18 Discharge Date: 10/08/18 Reason for Admission: Cough and pain Consultations: Speech therapy Pulmonology - Problems (1) Dysphagia Current Visit: No Status: Chronic Qualifiers: Dysphagia type: unspecified Qualified Code(s): R13.10 - Dysphagia, unspecified (2) Aspiration into lower respiratory tract Onset Date: 05/31/16 Current Visit: No Status: Acute Qualifiers: Encounter type: initial encounter Qualified Code(s): T17.800A - Unspecified foreign body in other parts of respiratory tract causing asphyxiation, initial encounter (3) Dehydration Onset Date: 10/05/18 Current Visit: Yes Status: Acute (4) Sepsis Onset Date: 04/18/18 Current Visit: No Status: Resolved Qualifiers: Sepsis type: sepsis due to unspecified organism Qualified Code(s): A41.9 - Sepsis, unspecified organism (5) Atrial fibrillation Onset Date: 10/05/18 Current Visit: Yes Status: Chronic Qualifiers: Atrial fibrillation type: chronic Qualified Code(s): I48.2 - Chronic atrial fibrillation (6) CHF (congestive heart failure) Onset Date: 09/30/16 Current Visit: No Status: Chronic Qualifiers: Heart failure type: combined systolic and diastolic Heart failure chronicity: acute on chronic Qualified Code(s): I50.43 - Acute on chronic combined systolic (congestive) and diastolic (congestive) heart failure (7) COPD (chronic obstructive pulmonary disease) Onset Date: 12/02/16 Current Visit: No Status: Chronic Qualifiers: COPD type: chronic bronchitis Chronic bronchitis type: mixed simple and mucopurulent Qualified Code(s): J41.8 - Mixed simple and mucopurulent chronic bronchitis (8) Chronic anemia Onset Date: 05/17/16 Current Visit: No Status: Chronic (9) HTN (hypertension) Onset Date: 05/17/16 Current Visit: No Status: Chronic Qualifiers: Hypertension type: essential hypertension Qualified Code(s): I10 - Essential (primary) hypertension (10) History of CVA (cerebrovascular accident) Onset Date: 05/15/18 Current Visit: No Status: Chronic (11) Parkinsons disease Onset Date: 05/15/18 Current Visit: No Status: Chronic (12) Vascular dementia Onset Date: 05/15/18 Current Visit: No Status: Chronic Qualifiers: Dementia behavioral disturbance: without behavioral disturbance Qualified Code(s): F01.50 - Vascular dementia without behavioral disturbance (13) BPH (benign prostatic hypertrophy) Onset Date: 05/17/16 Current Visit: No Status: Chronic Qualifiers: Lower urinary tract symptom presence: symptoms present Lower urinary tract symptom detail: urinary retention Qualified Code(s): N40.1 - Benign prostatic hyperplasia with lower urinary tract symptoms; R33.8 - Other retention of urine (14) History of fall Current Visit: No Status: Chronic Brief History of Present Illness: This is a 87-year-old male with significant past medical history of atrial fibrillation, colon cancer, CVA, hypertension, Parkinson's, BPH, CAD, pulmonary fibrosis, COPD, congestive heart failure, who presented to the ED after he was seen in his PCPs office couple of days ago for pneumonia and fever. Patient has been recently discharged from the hospital about 1 month ago after having a heart catheterization done in [facility]. At that time patient was told that his heart is weak and has been having poor ejection fraction. Ever since then patient had C. difficile and was treated with p.o. vancomycin and was recently seen at his primary care doctor's office for that as well. Patient however for the past couple a days has started having some low -grade fever and has been having issues work of breathing and thus the family decided to bring him in to the hospital. Patient has had a low temperature of 100.1 at the house with white sputum and thus the family decided to bring him to the hospital. Patient of note also has been having poor appetite along with poor p.o. intake with terms of fluids. Patient was also noted to have some decreased urinary output and thus was brought over to the hospital. Patient's control system manager at bedside also states that patient has bowel ileus for which he had a modified barium swallow exam done last week in the clinic and was noted to have delayed emptying at that time. In the ER patient had a chest x-ray abdominal CT and lab work done which was consistent with sepsis and dehydration and thus patient was admitted to the hospital for further care Hospital Course: Overall during the hospital stay patient remained stable Patient was initially admitted to the hospital for dehydration and sepsis. Patient appears to be chronically debilitated and having complications of his chronic illness. Primary being dysphagia along with delayed gastric emptying. Which makes him at higher risk for getting recurrent pneumonia due to aspiration. Patient was started on IV antibiotics here in the hospital. And was also started on IV fluids here in the hospital. Speech therapy was consulted. Speech therapy did a bedside swallow eval where patient failed an and modified barium swallow was recommended. Family at that time denied further treatment or testing. Stated that the problem has been chronic and they do not wish to address if further. Family at that time was educated extensively on the need for a modified barium swallow as patient's swallow study has changed from just having dysphagia to solids and thin liquids now to all normal food. At that time patient was made NPO and family was made aware of this situation. Family continued to refuse modified barium swallow. Patient was also educated extensively regarding the decision of modified barium swallow he and patient also refused to get the swallow study done to evaluate his dysphagia further. At that time family was notified that patient to help with swallowing and continue taking all his oral medication will need either a feeding tube inserted for a modified barium swallow to further evaluate. Family at that time declined both the options and thus hospice care was discussed in detail with the family. Family declined hospice care as well. At that time family was made aware that because we are not able to address his nutritional status at this point it is difficult for us to discharge the patient home safely. Patient will not be able to continue taking any of his home medication along with the antibiotics that he will be needing for his recurrent pneumonia along with C. difficile infection. Patient's family was also educated on the need for taking nutrition for energy expenditure and continuing the regular day to day process along with his medication that helps some sustain life. At that time family stated that they will continue to give him oral medication and fluids. Family was again educated extensively on the nature of his dysphagia and the risk for aspiration. Family requested at that time to talk to his primary care doctor. Dr. gardner from [facility] contacted and the situation was addressed with the primary care doctor. The primary care doctor at that time agreed that the patient either needs to have a feeding tube evaluation for hospice care. Since the family has not been able to make a decision or agreeing to NE plan of care here in the hospital the PCP did agree to see the patient in the office and off that patient can leave against medical advice if needed. The options were clearly explained to the family at bedside which included his son medical [id number] and the patient himself along with the control system manager of where the patient agrees to feeding tube for hospice care worse is leaving the hospital AMA to go see his PCP. Family at that time made the decision although leaning the hospital against medical advice and to go address this further with the primary care provider. Family again was educated extensively and complications and side effects of nutritional neglect were explained in detail at that time. AMA paper was then signed by the physician and the patient himself and patient was taken home by his son who is a medical POA. Vital Signs/Physical Exam: Temp Pulse Resp BP Pulse Ox 97.0 F 87 20 156/87 H 100 10/08/18 12:00 10/08/18 12:00 10/08/18 12:57 10/08/18 12:00 10/08/18 12:00 General: Alert, In no apparent distress HEENT: Atraumatic, PERRLA, EOMI Neck: Supple, JVD not distended Respiratory: Clear to auscultation bilaterally, Normal air movement Cardiovascular: Regular rate/rhythm, Normal S1 S2 Gastrointestinal: Normal bowel sounds, No tenderness Musculoskeletal: No tenderness Integumentary: No rashes Neurological: Normal speech, Normal tone, Normal affect Lymphatics: No axilla or inguinal lymphadenopathy Laboratory Data at Discharge: WBC 6.9 K/uL (4.3-10.9) D 10/07/18 05:55 Hgb 11.9 g/dL (13.6-17.9) L 10/07/18 05:55 Hct 34.8 % (39.6-49.0) L D 10/07/18 05:55 Plt Count 145 K/uL (152-406) L 10/07/18 05:55 PT 13.9 SECONDS (9.5-12.5) H 10/04/18 11:20 INR 1.18 10/04/18 11:20 Sodium 136 mmol/L (136-145) 10/08/18 14:30 Potassium 4.4 mmol/L (3.5-5.1) 10/08/18 14:30 BUN 10 mg/dL (7-18) 10/08/18 14:30 Creatinine 0.70 mg/dL (0.55-1.3) 10/08/18 14:30 Glucose 161 mg/dL (74-106) H 10/08/18 14:30 Phosphorus 2.6 mg/dL (2.5-4.9) 10/07/18 05:55 Magnesium 2.0 mg/dL (1.8-2.4) 10/04/18 12:13 Total Bilirubin 0.3 mg/dL (0.2-1.0) 10/08/18 14:30 AST 22 U/L (15-37) 10/08/18 14:30 ALT 18 U/L (12-78) 10/08/18 14:30 Alkaline Phosphatase 116 U/L (45-117) 10/08/18 14:30 Lipase 102 U/L (73-393) 10/04/18 12:13 Home Medications: Albuterol Sulfate [Albuterol Sulfate 0.083% Neb Soln] 1 vial IH Q6H PRN Amlodipine Besylate [Norvasc] 5 mg PO BEDTIME 08/11/18 Aspirin [Aspirin EC 325 MG] 325 mg PO DAILY 08/11/18 Buspirone HCl [Buspar*] 10 mg PO TID 08/11/18 Calcipotriene/Betamethasone [Calcipotriene-Betameth Dp Oint] 1 heather TOP BID 08/11 Carbidopa/Levodopa [Carbidopa-Levodopa 25-100 Tab] 1 tab PO TID 08/11/18 Fexofenadine HCl [Charito Allergy] 1 tab PO DAILY 08/11/18 Hydralazine HCl 25 mg PO Q8HR 08/11/18 Melatonin/Pyridoxine [Melatonin 5 mg Tablet] 5 mg PO BEDTIME 08/11/18 Memantine HCl [Memantine HCl ER] 1 cap PO [id number] 08/11/18 Metoclopramide HCl [Reglan] 5 mg PO BID PRN 08/11/18 Nitroglycerin [Nitrostat*] 0.4 mg SL PRN PRN 08/11/18 Olmesartan Medoxomil [Benicar] 20 mg PO BEDTIME 08/11/18 Ondansetron [Zofran (Odt)*] 4 mg SL DAILY PRN 08/11/18 PHENYTOIN ER Cap [Dilantin ER Cap*] 100 mg PO QID 08/11/18 Pantoprazole Sodium [Protonix] 20 mg PO [id number] 08/11/18 Polyethylene Glycol 3350 [Miralax] 17 gm PO SEECOM PRN 08/11/18 Pravastatin Sodium 10 mg PO BEDTIME 08/11/18 Quetiapine Fumarate [Seroquel] 25 mg PO QID 08/11/18 Solifenacin [Vesicare*] 10 mg PO [id number] 08/11/18 Tamsulosin [Flomax*] 0.4 mg PO [id number] 08/11/18 Trazodone HCl 50 mg PO BEDTIME 08/11/18 Triamcinolone Aceton/Silicones [Dermazone 0.1% Kit] 1 heather TOP BID PRN 08/11/18 Vitamin B Complex [Vitamin B Complex*] 1 cap PO DAILY 08/11/18 hydroCHLOROthiazide [Hydrochlorothiazide*] 12.5 mg PO DAILY 08/11/18 lamoTRIgine [Lamictal*] 100 mg PO BID 08/11/18 risperiDONE [Risperdal 0.25 MG TAB*] 0.125 mg PO BID 08/11/18 Carvedilol 6.25 mg PO BID 10/04/18
[2018-10-08 18:39] VITALS: O2SAT 100
--- NOTE | 2018-10-10 06:21 | CON ---
Date of Consultation: 10/05/2018 Patient admitted on 10/04/[address] Bartlett's service. I saw the patient on 10/05/2018. Reason For Consultation: Atrial fibrillation. History Of Present Illness: Mr. Groves is 87, has a history of chronic atrial fibrillation. He cam e in with pneumonia, fever, edema, constipation, elevated heart rate as well as consulted. According to Mr. Groves, he was recently at [facility] and had a heart catheterization and possibly a stent. No records are available. He also has a history of CVA, BPH, psoriasis, pancreatitis, pulm onary fibrosis, bowel dysfunction, hypertension, parkinsonism, colon cancer, dementia. Mr. Yaneli almonte oes not have any cardiac symptoms now. Allergies: NONE. Medications At Home: Include aspirin, Norvasc, Coreg, Sinemet, Benicar, Protonix, and Flomax. Family History: Noncontributory. Social History: Negative. Review of Systems: Negative. Physical Examination: Vital Signs: He was in atrial fibrillation at a rate 120. He was afebrile now, but he had fever whe n he came in. General: He had documented pneumonia in the right lower lobe at lingular area on chest x-ray. CT of the abdomen shows small pleural effusion. HEENT: Negative. Neck: Supple with no bruit. Chest: Reveals some rales both bases. Expiratory wheezing both bases. Cardiac: Showed atrial fibrillation. Abdomen: Benign. Extremities: Revealed 1+ edema. Diagnostic Data: EKG was in atrial fibrillation at a rate of 92. Chest x-ray showed pneumonia in th e right lower lobe and lingula. BNP was 3321. His white count was 12,000. Troponin was negative. Echocardiogram that was done in July of 2018 showed an ejection fraction of 48% with mild global hypokinesis. Impression And Plan: 1.Rapid atrial fibrillation expected secondary to the pneumonia. The patient is not a candidate for anticoagulation. We will treat his pneumonia, hydrate him gently. Continue his beta-monica. No f urther cardiac workup indicated at this point. Recent echocardiogram showed an ejection of 48%. The re is no need to repeat that. The BNP elevation is secondary to chronic congestive heart failure and his pneumonia. 2.Pneumonia. 3.History of cerebrovascular accident. 4.History of dementia. 5.History of coronary artery disease, status post percutaneous coronary intervention. 6.History of colon cancer. 7.Parkinsonism. 8.Hypertension, well controlled. 9.History of benign prostatic hypertrophy. 10.History of psoriasis. 11.History of pancreatitis. 12.Chronic pulmonary fibrosis. I will follow Génesis Yaneli with Dr. Bartlett. CARLOS/MARILYN Voice ID: [id number] Report ID: [id number]
== END 2018-10-08 16:31 | disposition left against medical advice (07) | DRG 871 ==
LOC: ER 09:05 → ERHOLD 13:16 → 2ND 14:32 → OBSVTOIN 10-06 14:22
PROVIDERS: ADMIT Family Medicine; ATTEND Family Medicine
DX: A41.9 Sepsis, unspecified organism (principal); I50.43 Acute on chronic combined systolic (congestive) and diastolic (congestive) heart failure; J69.0 Pneumonitis due to inhalation of food and vomit; I48.91 Unspecified atrial fibrillation; I10 Essential (primary) hypertension; G20 Parkinson's disease; N40.0 Benign prostatic hyperplasia without lower urinary tract symptoms; I25.10 Atherosclerotic heart disease of native coronary artery without angina pectoris; E86.0 Dehydration; I48.2 Chronic atrial fibrillation; J41.8 Mixed simple and mucopurulent chronic bronchitis; D64.89 Other specified anemias; F01.50 Vascular dementia, unspecified severity, without behavioral disturbance, psychotic disturbance, mood disturbance, and anxiety; N40.1 Benign prostatic hyperplasia with lower urinary tract symptoms; R33.9 Retention of urine, unspecified; Z86.73 Personal history of transient ischemic attack (TIA), and cerebral infarction without residual deficits; R53.81 Other malaise
CPT/HCPCS: 36415; 71045; 71250; 74176; 80048; 80053; 80076; 81003; 81015; 83605; 83690; 83735; 83880; 84100; 84145; 84484; 85025; 85610; 87040; 87493; 93005; 96361; 96365; 97163; 99285; G0378; J1650; J7030; J7512